=== PATIENT | female | born 1980 | race Hispanic/Latino ===

== ENCOUNTER 2018-05-11 05:49 | Emergency (ER) | payer SELFPAY ==
[2018-05-11] MEDS ORDERED: ONDANSETRON 4 MG/2 ML VIAL ONE ×2 (06:28→11:07)
[2018-05-11] MEDS ORDERED: NA CHLORIDE 0.9% 1,000 ML ONE ×3 (06:29→08:25)
[2018-05-11 06:36] LABS: Absolute Lymphocytes (CBC) 0.8 K/uL (0.7-4.9); Absolute Monocytes 0.5 K/uL (0.1-1.3); Absolute Neutrophil 7.4 K/uL (1.8-8.0); Basophils % 0.4 % (0-1.3); Eosinophils % 1.5 % (0-4.4); Hematocrit 36.8 % (36.0-45.0); Lymphocytes % 8.7 % (15.3-44.8); MCH 30.5 pg (27.0-35.0); MCV 88.9 fL (80-100); MPV 10.5 fL (7.6-11.3); Monocytes % 5.3 % (3.3-12.3); RBC Red Blood Cell Count 4.14 M/uL (3.86-4.86)
[2018-05-11 07:36] LABS: Urine Bacteria >50 /HPF (<20); Urine Culture Reflex Order REFLEXED
[2018-05-11 07:37] LABS: Urine Blood 2+ (NEG); Urine Glucose 2+ (NEG); Urine Protein 2+ (NEG); Urine pH 5.5 (5.0-7.0)
[2018-05-11 07:38] LABS: ALT/SGPT 14 U/L (12-78); AST/SGOT 6 U/L (15-37); Albumin 3.5 g/dL (3.4-5.0); Alkaline Phosphatase 117 U/L (45-117); Amylase Level 18 U/L (25-115); BUN Blood Urea Nitrogen 30 mg/dL (7-18); Bicarbonate 24 mmol/L (21-32); Bilirubin Direct < 0.1 mg/dL (0-0.2); Bilirubin Total 0.3 mg/dL (0.2-1.0); Lipase 126 U/L (73-393); Potassium 4.3 mmol/L (3.5-5.1); Protein, Total 7.7 g/dL (6.4-8.2); Sodium Level 134 mmol/L (136-145)
[2018-05-11 07:40] LABS: Glucose Level 441 mg/dL (74-106)
[2018-05-11] MEDS ORDERED: CEFTRIAXONE/SWI 1gm 1 GM/10 ML SYR ONE (08:20)
[2018-05-11 09:48] LABS: Blood Gas Oxyhemoglobin 92.6 % (94-97); Blood O2 Saturation 94.8 % (92-98.5)
[2018-05-11 10:06] LABS: BUN Blood Urea Nitrogen 22 mg/dL (7-18); Bicarbonate 24 mmol/L (21-32); Glucose Level 235 mg/dL (74-106); Potassium 4.2 mmol/L (3.5-5.1); Sodium Level 140 mmol/L (136-145)
--- NOTE | 2018-05-11 10:51 | EDPHYS ---
Physician Documentation [facility] Name: Mercedes Marin Age: 38 yrs Sex: Female : 1980 Arrival Date: 05/11/2018 Time: 05:50 Bed 17 Private MD: ED Physician Adria Corona HPI: 05/11 06:38 This 38 yrs old Female presents to ER via Wheelchair with complaints of jmm Nausea, Diarrhea, High Blood Sugar. 06:38 The patient presents to the emergency department with nausea, diarrhea. Onset: The jmm symptoms/episode began/occurred acutely, this morning. Possible causes: unknown. Associated signs and symptoms: Pertinent negatives: abdominal pain, vomiting. This is a 38 year old female with a history of DM that presents to the ED with multiple episodes of diarrhea. Patient denies vomiting or abdominal pain. Patient states she has been admitted in the past due to elevated blood glucose. . 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 - Social history:: Smoking status: Patient/guardian denies using tobacco. - Ebola Screening: : No symptoms or risks identified at this time. ROS: 06:38 Constitutional: Negative for fever, chills, and weight loss, Cardiovascular: Negative jmm for chest pain, palpitations, and edema, Respiratory: Negative for shortness of breath, cough, wheezing, and pleuritic chest pain. 06:38 Skin: Negative for injury, rash, and discoloration, Neuro: Negative for headache, weakness, numbness, tingling, and seizure. 06:38 Abdomen/GI: Positive for diarrhea. 06:38 All other systems are negative. Exam: 06:38 Head/Face: atraumatic. Eyes: EOMI, no conjunctival erythema appreciated Chest/axilla: jmm Normal chest wall appearance and motion. Cardiovascular: Regular rate and rhythm. No edema appreciated Respiratory: Normal respirations, no respiratory distress appreciated 06:38 Constitutional: The patient appears in no acute distress, alert, awake. 06:38 Cardiovascular: Rate: normal, Rhythm: regular. 06:38 Abdomen/GI: Inspection: abdomen appears normal, Bowel sounds: normal, Palpation: abdomen is soft and non-tender, in all quadrants. 06:38 Skin: Appearance: Color: normal in color. 06:38 Neuro: Orientation: is normal, Mentation: is normal, Memory: is normal. 06:38 Psych: Behavior/mood is pleasant, cooperative. Vital Signs: 06:04 BP 136 / 96; Pulse 101; Resp 20 S; Temp 98.2(O); Pulse Ox 100% on R/A; Weight 58.97 kg bb (R); Height 5 ft. 2 in. (157.48 cm) (R); Pain 6/10; 06:30 BP 140 / 85; Pulse 93; Resp 16 S; Pulse Ox 99% on R/A; bs1 07:34 BP 150 / 92; Pulse 100; Resp 16; Temp 98.1(O); Pulse Ox 99% on R/A; Pain 0/10; em 08:45 BP 143 / 92; Pulse 109; Resp 18; Pulse Ox 98% on R/A; Pain 0/10; em 09:24 BP 154 / 94; Pulse 109; Resp 16; Temp 98.8(O); Pulse Ox 97% on R/A; Pain 0/10; em 10:34 BP 146 / 92; Pulse 97; Resp 18; Pulse Ox 98% on R/A; Pain 0/10; em 11:14 BP 181 / 92; Pulse 96; Resp 20; Pulse Ox 97% on R/A; em 12:00 BP 168 / 98; Pulse 99; Resp 18; Temp 98.6(O); Pulse Ox 100% on R/A; Pain 5/10; em 06:04 Body Mass Index 23.78 (58.97 kg, 157.48 cm) bb MDM: 06:13 Patient medically screened. barbara 10:50 Data reviewed: vital signs, nurses notes, lab test result(s). Counseling: I had a jmm detailed discussion with the patient and/or guardian regarding: the historical points, exam findings, and any diagnostic results supporting the discharge/admit diagnosis, lab results, the need for outpatient follow up, to return to the emergency department if symptoms worsen or persist or if there are any questions or concerns that arise at home. 11:10 ED course: The patient's abdomen is soft and is non tender to palpation. I do not jmm currently suspect an acute intraabdominal process. The patient's labs do not appear consistent with DKA but did reveal signs of dehydration. After administration of 3 liters of IV fluids the patient's labs along with vital signs improved. Patient stated she felt better. Due to history of a similar episode with repeat er visit the patient was offered admission for observation and IV fluids. I discussed this with Dr. Blankenship whom agreed to visit the patient in the ED. It was advised by Dr. Blankenship to discharge with Levquin for UTI. . 05/11 06:13 Order name: Amylase, Serum; Complete Time: 07:50 [facility] 05/11 06:13 Order name: Basic Metabolic Panel; Complete Time: 07:50 [facility] 05/11 06:13 Order name: CBC with Diff; Complete Time: 07:03 [facility] 05/11 06:13 Order name: Creatinine for Radiology; Complete Time: 07:03 [facility] 05/11 06:13 Order name: Hepatic Function; Complete Time: 07:50 [facility] 05/11 06:13 Order name: Lipase; Complete Time: 07:50 [facility] 05/11 06:13 Order name: Urine Microscopic Only; Complete Time: 07:50 [facility] 05/11 06:14 Order name: Ketone, Serum; Complete Time: 07:50 [facility] 05/11 06:32 Order name: Urine Dipstick--Ancillary (enter results) eb 05/11 06:32 Order name: Urine --Ancillary (enter results); Complete Time: 07:50 05/11 06:32 Order name: Urine Dipstick-Ancillary; Complete Time: 07:50 [facility] 05/11 07:37 Order name: Urine Culture [facility] 05/11 08:15 Order name: BMP; Complete Time: 10:21 [facility] 05/11 09:02 Order name: Ketone, Serum; Complete Time: 10:12 [facility] 05/11 06:13 Order name: Urine Test (obtain specimen); Complete Time: 06:32 [facility] 05/11 06:13 Order name: IV Saline Lock; Complete Time: 06:32 [facility] 05/11 06:13 Order name: Labs collected and sent; Complete Time: 06:32 [facility] 05/11 06:13 Order name: Urine Dipstick-Ancillary (obtain specimen); Complete Time: 06:32 [facility] 05/11 09:02 Order name: ABG; Complete Time: 09:52 [facility] Administered Medications: 06:32 Drug: NS 0.9% 1000 ml Route: IV; Rate: 1 bolus; Site: left forearm; bs1 07:18 Follow up: IV Status: Completed infusion; IV Intake: 1000ml em 06:32 Drug: Zofran 4 mg Route: IVP; Site: left forearm; bs1 07:18 Follow up: Response: No adverse reaction em 07:33 Drug: NS 0.9% 1000 ml Route: IV; Rate: 1 bolus; Site: left antecubital; em 08:02 Follow up: IV Status: Completed infusion; IV Intake: 1000ml em 08:15 Drug: Rocephin - (cefTRIAXone) 1 grams Route: IVPB; Infused Over: 30 mins; Site: left rb1 forearm; 08:45 Follow up: Response: No adverse reaction; IV Status: Completed infusion; IV Intake: 10mlem 08:28 Drug: NS 0.9% 1000 ml Route: IV; Rate: 1 bolus; Site: left forearm; em 11:12 Follow up: IV Status: Completed infusion; IV Intake: 1000ml em 11:10 Drug: Zofran 4 mg Route: IVP; Site: left forearm; ss 12:07 Follow up: Response: No adverse reaction; Nausea is decreased em Point of Care Testing: Blood Glucose: 06:12 Blood Glucose: 412 mg/dL; bs1 Ranges: Critical Glucose Levels:Adult <50 mg/dl or >400 mg/dl <40 mg/dl or >180 mg/dl Disposition: 05/11/18 12:04 Discharged to Home. Impression: Diarrhea, unspecified, Dehydration, Hyperglycemia, unspecified, Urinary tract infection, site not specified. - Condition is Stable. - Discharge Instructions: Food Choices to Help Relieve Diarrhea, Adult, Dehydration, Adult, Diarrhea, Hyperglycemia, Urinary Tract Infection. - Prescriptions for Zofran ODT 4 mg Oral tablet,disintegrating - place 2 tablet by TRANSLINGUAL route every 4-6 hours; 30 tablet. Levaquin 500 mg Oral Tablet - take 1 tablet by ORAL route once daily for 7 days; 7 tablet. - Medication Reconciliation Form, Thank You Letter, Antibiotic Education, Prescription Opioid Use form. - Follow up: Private Physician; When: 1 - 2 days; Reason: Continuance of care. Addendum: 05/15/2018 07:46 Co-signature as Attending Physician, Adria Corona MD. r n Signatures: Dispatcher [employer] EDMS Jong Camarena PA PA m Umesh, Redd, CHART WRITER CHART WRITER em Elvira Batista, RN RN Adria Hagen MD MD rn Smirch, Shelby RN RN ss Sharon Rose, RN RN [facility] Mireya Castaneda RN RN bs1 Corrections: (The following items were deleted from the chart) 05/11 11:15 10:51 05/11/2018 10:51 Discharged to Home. Impression: Urinary tract infection, site [facility] not specified; Diarrhea, unspecified; Dehydration. Condition is Stable. Forms are Medication Reconciliation Form, Thank You Letter, Antibiotic Education, Prescription Opioid Use. Follow up: Private Physician; When: 1 - 2 days; Reason: Continuance of care. [facility] 12:16 12:04 05/11/2018 12:04 Discharged to Home. Impression: Diarrhea, unspecified; em Dehydration; Hyperglycemia, unspecified; Urinary tract infection, site not specified. Condition is Stable. Discharge Instructions: Diarrhea. Prescriptions for Keflex 500 mg Oral Capsule - take 1 capsule by ORAL route every 12 hours for 10 days; 20 capsule, Zofran 4 mg Oral Tablet - take 1 tablet by ORAL route every 12 hours As needed; 20 tablet. and Forms are Medication Reconciliation Form, Thank You Letter, Antibiotic Education, Prescription Opioid Use. Follow up: Private Physician; When: 1 - 2 days; Reason: Continuance of care. [facility]
--- NOTE | 2018-05-11 10:51 | ER ---
Nurse's Notes [facility] Name: Mercedes Marin Age: 38 yrs Sex: Female : 1980 Arrival Date: 05/11/2018 Time: 05:50 Bed 17 Private MD: Diagnosis: Diarrhea, unspecified;Dehydration;Hyperglycemia, unspecified;Urinary tract infection, site not specified Presentation: 05/11 06:03 Presenting complaint: Patient states: she has had diarrhea and nausea since 0100 this bb morning BGL at 0430 was 480, pt also has a headache. Transition of care: patient was not received from another setting of care. Onset of symptoms was May 11, 2018 at 01:00. Risk Assessment: Do you want to hurt yourself or someone else? Patient reports no desire to harm self or others. Initial Sepsis Screen: Does the patient meet any 2 criteria? No. Patient's initial sepsis screen is negative. Does the patient have a suspected source of infection? No. Patient's initial sepsis screen is negative. Care prior to arrival: None. 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 - Social history:: Smoking status: Patient/guardian denies using tobacco. - Ebola Screening: : No symptoms or risks identified at this time. Screenin:35 Abuse screen: Denies threats or abuse. Denies injuries from another. Nutritional bs1 screening: No deficits noted. Tuberculosis screening: No symptoms or risk factors identified. Fall Risk None identified. Assessment: 06:15 General: Appears uncomfortable, ill, slender, Behavior is calm, cooperative, bs1 appropriate for age. Pain: Complains of pain in head. Neuro: Level of Consciousness is awake, alert, obeys commands, Oriented to person, place, time, situation, Appropriate for age Reports dizziness, headache weakness. Cardiovascular: Denies chest pain, shortness of breath, Heart tones S1 S2 present Capillary refill < 3 seconds Patient's skin is warm and dry. Respiratory: Airway is patent Trachea midline Respiratory effort is even, unlabored, Respiratory pattern is regular, symmetrical, Breath sounds are clear bilaterally. GI: Abdomen is round non-distended, Bowel sounds present X 4 quads. Reports diarrhea, nausea. : No signs and/or symptoms were reported regarding the genitourinary system. EENT: No signs and/or symptoms were reported regarding the EENT system. Derm: Skin is intact. Musculoskeletal: Circulation, motion, and sensation intact. Capillary refill < 3 seconds, Range of motion: intact in all extremities. 07:00 Reassessment: Report given to LVN. Redd bs1 07:17 Reassessment: Patient appears in no apparent distress at this time. General: Appears in em no apparent distress. comfortable, well groomed, well developed, Behavior is calm, cooperative. Pain: Denies pain. Neuro: Level of Consciousness is awake, alert, obeys commands, Oriented to person, place, time, situation, Denies weakness headache. Cardiovascular: Capillary refill < 3 seconds Patient's skin is warm and dry. Respiratory: Airway is patent Respiratory effort is even, unlabored, Respiratory pattern is regular, symmetrical. GI: Abdomen is round Bowel sounds present X 4 quads. Derm: Skin is intact, Skin is pink, warm \T\ dry. Musculoskeletal: Capillary refill < 3 seconds, Range of motion: intact in all extremities. 07:35 Reassessment: administered 2nd liter of NS, no complaints at this time. em 08:30 Reassessment: Patient appears in no apparent distress at this time. Patient and/or em family updated on plan of care and expected duration. Pain level reassessed. Patient is alert, oriented x 3, equal unlabored respirations, skin warm/dry/pink. administered 3 rd liter NS, will recheck BMP after, currently feels better Patient denies pain at this time. 09:22 Reassessment: Patient appears in no apparent distress at this time. Patient and/or em family updated on plan of care and expected duration. Pain level reassessed. Patient is alert, oriented x 3, equal unlabored respirations, skin warm/dry/pink. currently denies N/V/D Patient states symptoms have improved. 10:33 Reassessment: Patient appears in no apparent distress at this time. Patient and/or em family updated on plan of care and expected duration. Pain level reassessed. Patient is alert, oriented x 3, equal unlabored respirations, skin warm/dry/pink. Patient denies pain at this time. Patient states feeling better. Patient states symptoms have improved. 11:09 Reassessment: pt daughter states she is getting nauseated, pt dry heavichad, Jong, PA em notified, new medication orders received. 12:14 Reassessment: Patient appears in no apparent distress at this time. Patient and/or em family updated on plan of care and expected duration. Pain level reassessed. Patient is alert, oriented x 3, equal unlabored respirations, skin warm/dry/pink. nausea has resolved, mild head ache. Vital Signs: 06:04 BP 136 / 96; Pulse 101; Resp 20 S; Temp 98.2(O); Pulse Ox 100% on R/A; Weight 58.97 kg bb (R); Height 5 ft. 2 in. (157.48 cm) (R); Pain 6/10; 06:30 BP 140 / 85; Pulse 93; Resp 16 S; Pulse Ox 99% on R/A; bs1 07:34 BP 150 / 92; Pulse 100; Resp 16; Temp 98.1(O); Pulse Ox 99% on R/A; Pain 0/10; em 08:45 BP 143 / 92; Pulse 109; Resp 18; Pulse Ox 98% on R/A; Pain 0/10; em 09:24 BP 154 / 94; Pulse 109; Resp 16; Temp 98.8(O); Pulse Ox 97% on R/A; Pain 0/10; em 10:34 BP 146 / 92; Pulse 97; Resp 18; Pulse Ox 98% on R/A; Pain 0/10; em 11:14 BP 181 / 92; Pulse 96; Resp 20; Pulse Ox 97% on R/A; em 12:00 BP 168 / 98; Pulse 99; Resp 18; Temp 98.6(O); Pulse Ox 100% on R/A; Pain 5/10; em 06:04 Body Mass Index 23.78 (58.97 kg, 157.48 cm) ED Course: 05:50 Patient arrived in ED. es 06:00 Mireya Castaneda, WALDEMAR is Primary Nurse. bs1 06:00 Inserted saline lock: 22 gauge in left forearm, using aseptic technique. Blood bs1 collected. 06:04 Triage completed. bb 06:04 Arm band placed on Patient placed in an exam room, on a stretcher, on pulse oximetry. bb Family accompanied patient. 06:12 Jong Camarena PA is PHCP. [facility] 06:12 Adria Corona MD is Attending Physician. [facility] 06:35 Patient has correct armband on for positive identification. Placed in gown. Bed in low bs1 position. Call light in reach. Side rails up X 1. Pulse ox on. NIBP on. 10:44 No provider procedures requiring assistance completed. em 12:13 IV discontinued, intact, bleeding controlled, No redness/swelling at site. Pressure em dressing applied. Administered Medications: 06:32 Drug: NS 0.9% 1000 ml Route: IV; Rate: 1 bolus; Site: left forearm; bs1 07:18 Follow up: IV Status: Completed infusion; IV Intake: 1000ml em 06:32 Drug: Zofran 4 mg Route: IVP; Site: left forearm; bs1 07:18 Follow up: Response: No adverse reaction em 07:33 Drug: NS 0.9% 1000 ml Route: IV; Rate: 1 bolus; Site: left antecubital; em 08:02 Follow up: IV Status: Completed infusion; IV Intake: 1000ml em 08:15 Drug: Rocephin - (cefTRIAXone) 1 grams Route: IVPB; Infused Over: 30 mins; Site: left rb1 forearm; 08:45 Follow up: Response: No adverse reaction; IV Status: Completed infusion; IV Intake: 10mlem 08:28 Drug: NS 0.9% 1000 ml Route: IV; Rate: 1 bolus; Site: left forearm; em 11:12 Follow up: IV Status: Completed infusion; IV Intake: 1000ml em 11:10 Drug: Zofran 4 mg Route: IVP; Site: left forearm; ss 12:07 Follow up: Response: No adverse reaction; Nausea is decreased em Point of Care Testing: Blood Glucose: 06:12 Blood Glucose: 412 mg/dL; bs1 Ranges: Intake: 07:18 IV: 1000ml; Total: 1000ml. em 08:02 IV: 1000ml; Total: 2000ml. em 08:45 IV: 10ml; Total: 2010ml. em 11:12 IV: 1000ml; Total: 3010ml. em Outcome: 10:51 Discharge ordered by . [facility] 12:04 Discharge ordered by . [facility] 12:13 Discharged to home ambulatory. em 12:13 Condition: good 12:13 Discharge instructions given to patient, Instructed on discharge instructions, follow up and referral plans. medication usage, Demonstrated understanding of instructions, follow-up care, medications, Prescriptions given X 2. 12:16 Patient left the ED. em Addendum: 05/13/2018 09:30 Addendum: Culture Results: Positive urine culture. Bacteria is resistant to, has i w intermediate sensitivity, or is not tested against prescribed antibiotics. Report given to LYNSEY for further evaluation and then to veterinary surgery technologist for follow up with patient. Phone call Attempt #1 pt did not answer, left voice mail. Signatures: Jong Camarena PA PA Whitney Escalante Edgar, SERVICE ORDER CLERK SERVICE ORDER CLERK em Elvira Batista, RN RN Sonia Morgan, RN WALDEMAR iw Marbella Allen RN RN ss Sharon Rose, RN RN rb1 Mireya Castaneda RN RN bs1
[2018-05-11] MEDS ORDERED: ACETAMINOPHEN 325 MG TABLET ONE (11:37)
[2018-05-11 12:30] VITALS: BP 168/98; TEMP 98.6; O2SAT 100
== END 2018-05-11 12:16 | disposition home or self-care (01) ==
LOC: ER 05:49
DX: E86.0 Dehydration (principal); E11.65 Type 2 diabetes mellitus with hyperglycemia; N39.0 Urinary tract infection, site not specified; Z79.4 Long term (current) use of insulin
CPT/HCPCS: 36415; 80048; 80076; 81003; 81015; 81025; 82010; 82150; 82805; 82962; 83690; 85025; 87077; 87086; 87088; 87186; 96361; 96365; 96375; 99284; J0696; J2405; J7030

== ENCOUNTER 2019-06-08 10:46 | Inpatient (IN) | payer SELFPAY ==
[2019-06-08] MEDS ORDERED: MORPHINE 4 MG/ML SYR ONE (11:40)
[2019-06-08] MEDS ORDERED: NA CHLORIDE 0.9% 1,000 ML ONE (11:40)
[2019-06-08] MEDS ORDERED: ONDANSETRON 4 MG/2 ML VIAL ONE ×2 (11:40→14:48)
--- NOTE | 2019-06-08 12:11 | RAD REPORT ---
EXAM DESCRIPTION: RAD - Chest Single View - 06/08/2019 11:56 am CLINICAL HISTORY: COUGH Chest pain. COMPARISON: Chest Single View dated 05/12/2016; Chest Single View dated 05/11/2016 FINDINGS: Portable technique limits examination quality. Interstitial lung markings are mildly prominent suggesting interstitial pneumonia. The heart is oliverio l in size. No displaced fractures. IMPRESSION: Mild interstitial pneumonitis.
[2019-06-08 12:52] LABS: Absolute Lymphocytes (CBC) 1.1 K/uL (0.7-4.9); Basophils % 0.8 % (0-1.3); Hematocrit 29.6 % (36.0-45.0); Lymphocytes % 13.3 % (15.3-44.8); MPV 9.4 fL (7.6-11.3); RBC Red Blood Cell Count 3.44 M/uL (3.86-4.86)
[2019-06-08 13:00] LABS: Protime INR 0.98
[2019-06-08 13:04] LABS: Urine Blood 1+ (NEG); Urine Glucose TRACE (NEG); Urine Protein 3+ (NEG)
[2019-06-08 13:12] LABS: ALT/SGPT 18 U/L (12-78); AST/SGOT 14 U/L (15-37); Albumin 3.3 g/dL (3.4-5.0); Alkaline Phosphatase 81 U/L (45-117); BUN Blood Urea Nitrogen 32 mg/dL (7-18); Bicarbonate 25 mmol/L (21-32); Bilirubin Direct < 0.1 mg/dL (0-0.2); Bilirubin Total 0.3 mg/dL (0.2-1.0); Glucose Level 151 mg/dL (74-106); Lipase 48 U/L (73-393); Magnesium 2.4 mg/dL (1.8-2.4); NT PRO-BNP 1697 pg/mL (<125); Potassium 4.6 mmol/L (3.5-5.1); Sodium Level 138 mmol/L (136-145); Troponin (Emerg Dept Use Only) < 0.02 ng/mL (0.0-0.045)
--- NOTE | 2019-06-08 14:01 | RAD REPORT ---
EXAM DESCRIPTION: CT - Head Brain Wo Cont - 06/08/2019 1:49 pm CLINICAL HISTORY: HEADACHE Headache, drowsiness COMPARISON: No comparisons TECHNIQUE: All CT scans are performed using dose optimization technique as appropriate and may inclu de automated exposure control or mA/KV adjustment according to patient size. FINDINGS: No intracranial hemorrhage, hydrocephalus or extra-axial fluid collection.No areas of brai n edema or evidence of midline shift. The paranasal sinuses and mastoids are clear. The calvarium is intact. IMPRESSION: No acute intracranial abnormality.
--- NOTE | 2019-06-08 14:26 | EKG ---
Test Date: 2019-06-08 Test Time: 11:23:41 Sock Folder: SAAD MEASUREMENT RESULTS: Intervals: Rate: 101 HI: 156 QRSD: 66 QT: 356 QTc: 461 [place]: P: 80 HI: 156 QRS: 27 T: 85 INTERPRETIVE STATEMENTS: Sinus tachycardia Otherwise normal ECG Compared to ECG 05/12/2016 11:25:48 Sinus rhythm no longer present Electronically Signed On 06-08-19 14:25:24 CDT by Gerson Aguilar
--- NOTE | 2019-06-08 14:31 | RAD REPORT ---
EXAM DESCRIPTION: MRI - MRA Head Wo Cont - 06/08/2019 2:16 pm CLINICAL HISTORY: HEADACHE CVA COMPARISON: Head Brain Wo Cont dated 06/08/2019 FINDINGS: 3D noncontrast [id number] MR angiography of the [place] was performed. No aneurysm, flow-limiting stenosis or vascular malformation is seen. origin of the right poste rior communicating artery noted, normal variant. Forward flow seen in mildly left-sided dominant vert ebral arteries. The visualized dural venous sinuses appear patent. IMPRESSION: No significant flow abnormality of the [place] is identified.
--- NOTE | 2019-06-08 14:49 | ER ---
Nurse's Notes [facility] Name: Mercedes Marin Age: 39 yrs Sex: Female : 1980 Arrival Date: 06/08/2019 Time: 10:47 Bed 17 Private MD: Diagnosis: Vomiting;Unspecified combined systolic (congestive) and diastolic (congestive) heart failure;Essential (primary) hypertension;Headache;Type 2 diabetes mellitus Presentation: 06/08 10:50 Presenting complaint: Patient states: i started having headache last night and this hj morning i started vomiting, denies trauma to the area, reports BP issues;. Transition of care: patient was not received from another setting of care. Onset of symptoms was June 08, 2019. Risk Assessment: Do you want to hurt yourself or someone else? Patient reports no desire to harm self or others. Initial Sepsis Screen: Does the patient meet any 2 criteria? No. Patient's initial sepsis screen is negative. Does the patient have a suspected source of infection? No. Patient's initial sepsis screen is negative. Care prior to arrival: None. 10:50 Method Of Arrival: Ambulatory 10:50 Acuity: ALONDRA 2 hj Triage Assessment: 10:55 General: Appears in no apparent distress. uncomfortable, Behavior is calm, cooperative, bp appropriate for age. Pain: Complains of pain in head. EENT: No deficits noted. Neuro: Level of Consciousness is awake, alert, obeys commands, Oriented to person, place, time, situation, Appropriate for age. Cardiovascular: Rhythm is sinus rhythm. Respiratory: No deficits noted. GI: Reports nausea, vomiting. : No signs and/or symptoms were reported regarding the genitourinary system. Derm: No deficits noted. Musculoskeletal: No deficits noted. 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 - Family history:: not pertinent. - Social history:: Smoking status: Patient/guardian denies using tobacco. - Ebola Screening: : No symptoms or risks identified at this time. Screenin:49 Abuse screen: Denies threats or abuse. Denies injuries from another. Nutritional bp screening: No deficits noted. Tuberculosis screening: No symptoms or risk factors identified. Fall Risk None identified. Assessment: 10:55 General: SEE TRIAGE NOTE. GI: Abdomen is non-distended, Bowel sounds present X 4 quads. bp Abd is soft X 4 quads. 12:50 Reassessment: PIV AND LAB SPECIMENS OBTAINED. LABS IN PROCESS. bp 13:46 Reassessment: PT TO CT. bp 14:26 Reassessment: PT RETURNED FROM MRI. bp 16:00 Reassessment: PT REMAINS HYPERTENSIVE, ADMIT IN PROCESS. bp 17:21 Reassessment: ADMIT IN PROCESS. bp 17:40 Reassessment: BED ASSIGNED. NURSE UNAVAILABLE FOR REPORT. bp 18:45 Reassessment: ADMIT ON HOLD FOR RECEIVING NURSE. bp 19:05 General: Appears in no apparent distress. comfortable, Behavior is calm, cooperative, rr5 appropriate for age. 19:05 Pain: Complains of pain in head Pain does not radiate. Pain currently is 4 out of 10 on rr5 a pain scale. Quality of pain is described as aching, Pain began gradually, Is intermittent. Neuro: Level of Consciousness is awake, alert, obeys commands, Oriented to person, place, time, situation, Appropriate for age Reports headache. Cardiovascular: Capillary refill < 3 seconds Patient's skin is warm and dry. Respiratory: Airway is patent Respiratory effort is even, unlabored, Respiratory pattern is regular, symmetrical. GI: Abdomen is non-distended, Reports nausea. : No signs and/or symptoms were reported regarding the genitourinary system. EENT: No signs and/or symptoms were reported regarding the EENT system. Derm: Skin is intact, Skin temperature is warm. Musculoskeletal: Circulation, motion, and sensation intact. Capillary refill < 3 seconds. 20:00 Reassessment: Patient appears in no apparent distress at this time. Patient is alert, rr5 oriented x 3, equal unlabored respirations, skin warm/dry/pink. transferred to room 213 via stretcher Patient states symptoms have improved. Vital Signs: 10:53 BP 212 / 101; Pulse 104; Resp 18; Temp 98.9(TE); Pulse Ox 100% on R/A; Weight 68.04 kg; hj Height 5 ft. 2 in. (157.48 cm); Pain 8/10; 12:50 BP 190 / 93; Pulse 91; Resp 16; Pulse Ox 98% ; bp 13:46 BP 180 / 95; Pulse 85; Resp 16; Pulse Ox 95% ; bp 14:27 BP 199 / 91; Pulse 95; Resp 16; Pulse Ox 97% ; bp 14:54 BP 179 / 97; Pulse 90; Resp 16; Pulse Ox 95% ; bp 17:22 BP 184 / 96; Pulse 94; Resp 16; Pulse Ox 100% ; bp 18:45 BP 199 / 106; Pulse 100; Resp 16; Pulse Ox 98% ; bp 19:15 BP 197 / 109; Pulse 99; Resp 19; Temp 98; Pulse Ox 100% on R/A; rr5 19:50 BP 159 / 91; Pulse 100; Resp 16; Pulse Ox 100% on R/A; rr5 10:53 Body Mass Index 27.44 (68.04 kg, 157.48 cm) hj 19:15 apresoline IV 10 mg given signed in [employer] as prn dose rr5 ED Course: 10:47 Patient arrived in ED. rg4 10:49 Lorenzo Condon MD is Attending Physician. nicholas 10:51 Triage completed. hj 10:52 Arm band placed on right wrist. hj 10:54 Wes Marcelino, RN is Primary Nurse. bp 11:23 EKG done, by system technologist. reviewed by Lorenzo Condon MD. at1 11:57 XRAY Chest (1 view) In Process Unspecified. EDMS 12:49 Patient has correct armband on for positive identification. Placed in gown. Bed in low bp position. Call light in reach. Side rails up X2. Adult w/ patient. 12:50 Inserted saline lock: 24 gauge in left hand, using aseptic technique. Blood collected. bp 13:08 Radiology exam delayed due to lab results not completed at this time. (BUN/Creatinine). jg6 13:50 CT Head Brain wo Cont In Process Unspecified. EDMS 14:08 MRA Head Wo Cont In Process Unspecified. EDMS 14:45 Cathi Gallagher MD is Hospitalizing Provider. nicholas 18:00 No provider procedures requiring assistance completed. Patient admitted, IV remains in bp place. Administered Medications: 12:52 Drug: morphine 4 mg Route: IVP; Site: left hand; bp 14:53 Follow up: Response: Pain is decreased bp 12:52 Drug: Zofran 4 mg Route: IVP; Site: left hand; bp 14:53 Follow up: Response: No adverse reaction bp 12:52 Drug: NS 0.9% 1000 ml Route: IV; Rate: 125 ml/hr; Site: left hand; bp 20:00 Follow up: Response: No adverse reaction; IV Status: Infusion continued upon admission; rr5 IV Intake: 850ml 14:53 Drug: Zofran 4 mg Route: IVP; Site: left hand; bp Intake: 20:00 IV: 850ml; Total: 850ml. rr5 Outcome: 14:46 Decision to Hospitalize by Provider. nicholas 20:00 Admitted to Med/surg accompanied by tech, via stretcher, room 213. rr5 20:00 Condition: stable 20:00 Instructed on the need for admit. 20:08 Patient left the ED. rr5 Signatures: Dispatcher [employer] EDME Lorenzo Condon MD MD cha Gonzales, Amanda, overlock sewing machine operator EKG Tat1 Fabricio Escobar RN RN hj Garcia, Rubi rg4 Wes Marcelino RN RN bp Garcia, Jessica jg6 Bandar Ellis, RN RN rr5 Corrections: (The following items were deleted from the chart) 10:53 10:50 Acuity: ALONDRA 3 chester briggs
--- NOTE | 2019-06-08 14:50 | EDPHYS ---
Physician Documentation [facility] Name: Mercedes Marin Age: 39 yrs Sex: Female : 1980 Arrival Date: 06/08/2019 Time: 10:47 Bed 17 Private MD: ED Physician Lorenzo Condon HPI: 06/08 11:17 This 39 yrs old Female presents to ER via Ambulatory with complaints of nicholas Vomiting, Headache. 11:17 The patient presents to the emergency department with nausea, vomiting. Onset: The nicholas symptoms/episode began/occurred this morning, today, yesterday. Possible causes: unknown. The symptoms are aggravated by movement, pressure, The symptoms are alleviated by remaining still. Associated signs and symptoms: The patient has no apparent associated signs or symptoms. Severity of symptoms: At their worst the symptoms were moderate in the emergency department the symptoms are unchanged. The patient has not experienced similar symptoms in the past. 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 - Family history:: not pertinent. - Social history:: Smoking status: Patient/guardian denies using tobacco. - Ebola Screening: : No symptoms or risks identified at this time. ROS: 11:17 Constitutional: Negative for fever, chills, and weight loss, Eyes: Negative for injury, nicholas pain, redness, and discharge, ENT: Negative for injury, pain, and discharge, Neck: Negative for injury, pain, and swelling, Cardiovascular: Negative for chest pain, palpitations, and edema, Respiratory: Negative for shortness of breath, cough, wheezing, and pleuritic chest pain, Back: Negative for injury and pain, : Negative for injury, bleeding, discharge, and swelling, MS/Extremity: Negative for injury and deformity, Skin: Negative for injury, rash, and discoloration, Psych: Negative for depression, anxiety, suicide ideation, homicidal ideation, and hallucinations, Allergy/Immunology: Negative for hives, rash, and allergies, Endocrine: Negative for neck swelling, polydipsia, polyuria, polyphagia, and marked weight changes, Hematologic/Lymphatic: Negative for swollen nodes, abnormal bleeding, and unusual bruising. 11:17 Abdomen/GI: Positive for abdominal pain, nausea and vomiting. 11:17 Neuro: Positive for headache. Exam: 11:17 Constitutional: This is a well developed, well nourished patient who is awake, alert, nicholas and in no acute distress. Head/Face: Normocephalic, atraumatic. Eyes: Pupils equal round and reactive to light, extra-ocular motions intact. Lids and lashes normal. Conjunctiva and sclera are non-icteric and not injected. Cornea within normal limits. Periorbital areas with no swelling, redness, or edema. ENT: Nares patent. No nasal discharge, no septal abnormalities noted. Tympanic membranes are normal and external auditory canals are clear. Oropharynx with no redness, swelling, or masses, exudates, or evidence of obstruction, uvula midline. Mucous membranes moist. Neck: Trachea midline, no thyromegaly or masses palpated, and no cervical lymphadenopathy. Supple, full range of motion without nuchal rigidity, or vertebral point tenderness. No Meningismus. Chest/axilla: Normal chest wall appearance and motion. Nontender with no deformity. No lesions are appreciated. Cardiovascular: Regular rate and rhythm with a normal S1 and S2. No gallops, murmurs, or rubs. Normal PMI, no JVD. No pulse deficits. Respiratory: Lungs have equal breath sounds bilaterally, clear to auscultation and percussion. No rales, rhonchi or wheezes noted. No increased work of breathing, no retractions or nasal flaring. Abdomen/GI: Soft, non-tender, with normal bowel sounds. No distension or tympany. No guarding or rebound. No evidence of tenderness throughout. Back: No spinal tenderness. No costovertebral tenderness. Full range of motion. Skin: Warm, dry with normal turgor. Normal color with no rashes, no lesions, and no evidence of cellulitis. MS/ Extremity: Pulses equal, no cyanosis. Neurovascular intact. Full, normal range of motion. Neuro: Awake and alert, GCS 15, oriented to person, place, time, and situation. Cranial nerves II-XII grossly intact. Motor strength 5/5 in all extremities. Sensory grossly intact. Cerebellar exam normal. Normal gait. Psych: Awake, alert, with orientation to person, place and time. Behavior, mood, and affect are within normal limits. 11:17 Neck: ROM/movement: no acute changes, Meningeal signs: are not present, Kernig's sign is negative, Brudzinski's sign is negative. Vital Signs: 10:53 BP 212 / 101; Pulse 104; Resp 18; Temp 98.9(TE); Pulse Ox 100% on R/A; Weight 68.04 kg; hj Height 5 ft. 2 in. (157.48 cm); Pain 8/10; 12:50 BP 190 / 93; Pulse 91; Resp 16; Pulse Ox 98% ; bp 13:46 BP 180 / 95; Pulse 85; Resp 16; Pulse Ox 95% ; bp 14:27 BP 199 / 91; Pulse 95; Resp 16; Pulse Ox 97% ; bp 14:54 BP 179 / 97; Pulse 90; Resp 16; Pulse Ox 95% ; bp 17:22 BP 184 / 96; Pulse 94; Resp 16; Pulse Ox 100% ; bp 18:45 BP 199 / 106; Pulse 100; Resp 16; Pulse Ox 98% ; bp 19:15 BP 197 / 109; Pulse 99; Resp 19; Temp 98; Pulse Ox 100% on R/A; rr5 19:50 BP 159 / 91; Pulse 100; Resp 16; Pulse Ox 100% on R/A; rr5 10:53 Body Mass Index 27.44 (68.04 kg, 157.48 cm) 19:15 apresoline IV 10 mg given signed in [facility] as prn dose rr5 MDM: 10:55 Patient medically screened. [facility] 11:20 Data reviewed: vital signs, nurses notes, lab test result(s), EKG, radiologic studies, [facility] CT scan, plain films. 06/08 11:17 Order name: Basic Metabolic Panel; Complete Time: 13:41 [facility] 06/08 11:17 Order name: CBC with Diff; Complete Time: 13:41 [facility] 06/08 11:17 Order name: LFT's; Complete Time: 13:41 [facility] 06/08 11:17 Order name: Magnesium; Complete Time: 13:41 [facility] 06/08 11:17 Order name: NT PRO-BNP; Complete Time: 13:41 [facility] 06/08 11:17 Order name: PT-INR; Complete Time: 13:41 [facility] 06/08 11:17 Order name: Troponin (emerg Dept Use Only); Complete Time: 13:41 [facility] 06/08 11:17 Order name: XRAY Chest (1 view); Complete Time: 12:40 [facility] 06/08 11:17 Order name: CT Head Brain wo Cont; Complete Time: 14:41 [facility] 06/08 11:17 Order name: Urine Culture [facility] 06/08 11:17 Order name: Lipase; Complete Time: 13:41 [facility] 06/08 11:56 Order name: Urine Dipstick--Ancillary (enter results); Complete Time: 13:41 06/08 11:56 Order name: Urine --Ancillary (enter results); Complete Time: 13:41 06/08 11:17 Order name: EKG; Complete Time: 11:22 [facility] 06/08 11:17 Order name: Cardiac monitoring; Complete Time: 11:34 [facility] 06/08 11:17 Order name: EKG - Nurse/Tech; Complete Time: 11:17 [facility] 06/08 11:17 Order name: IV Saline Lock; Complete Time: 12:50 [facility] 06/08 11:17 Order name: Labs collected and sent; Complete Time: 12:50 [facility] 06/08 11:17 Order name: O2 Per Protocol; Complete Time: 11:17 [facility] 06/08 11:17 Order name: O2 Sat Monitoring; Complete Time: 11:18 [facility] 06/08 11:17 Order name: Urine Dipstick-Ancillary (obtain specimen); Complete Time: 11:51 [facility] 06/08 11:17 Order name: Urine Test (obtain specimen); Complete Time: 11:51 [facility] 06/08 13:42 Order name: MRA Head Wo Cont; Complete Time: 14:41 EDMS Administered Medications: 12:52 Drug: morphine 4 mg Route: IVP; Site: left hand; bp 14:53 Follow up: Response: Pain is decreased bp 12:52 Drug: Zofran 4 mg Route: IVP; Site: left hand; bp 14:53 Follow up: Response: No adverse reaction bp 12:52 Drug: NS 0.9% 1000 ml Route: IV; Rate: 125 ml/hr; Site: left hand; bp 20:00 Follow up: Response: No adverse reaction; IV Status: Infusion continued upon admission; rr5 IV Intake: 850ml 14:53 Drug: Zofran 4 mg Route: IVP; Site: left hand; bp Disposition: 06/08/19 14:46 Hospitalization ordered by Cathi Gallagher for Inpatient Admission. Preliminary diagnosis are Vomiting, Unspecified combined systolic (congestive) and diastolic (congestive) heart failure, Essential (primary) hypertension, Headache, Type 2 diabetes mellitus. - Bed requested for Telemetry/MedSurg (Inpatient). - Status is Inpatient Admission. rr5 - Condition is Fair. - Problem is new. - Symptoms have improved. UTI on Admission? No Signatures: Dispatcher [employer] EDOR Lorenzo Condon MD MD cha Williams, Irene, RN RN iw Fabricio Escobar RN RN hj Wes Marcelino, RN RN bp Bandar Ellis RN RN rr5 Corrections: (The following items were deleted from the chart) 13:49 11:22 Head Angio+CT.RAD.BRZ ordered. [facility] 17:40 14:46 Hospitalization Ordered by Cathi Gallagher MD for Inpatient Admission. Preliminary iw diagnosis is Vomiting; Unspecified combined systolic (congestive) and diastolic (congestive) heart failure; Essential (primary) hypertension; Headache; Type 2 diabetes mellitus. Bed requested for Telemetry/MedSurg (Inpatient). Status is Inpatient Admission. Condition is Fair. Problem is new. Symptoms have improved. UTI on Admission? No. nicholas 20:08 17:40 06/08/2019 14:46 Hospitalization Ordered by Cathi Gallagher MD for Inpatient rr5 Admission. Preliminary diagnosis is Vomiting; Unspecified combined systolic (congestive) and diastolic (congestive) heart failure; Essential (primary) hypertension; Headache; Type 2 diabetes mellitus. Bed requested for Telemetry/MedSurg (Inpatient). Status is Inpatient Admission. Condition is Fair. Problem is new. Symptoms have improved. UTI on Admission? No. iw
[2019-06-08] MEDS ORDERED: NITROGLYCERIN 0.4 MG/TAB SL PRN (19:10)
[2019-06-08] MEDS ORDERED: ACETAMINOPHEN 500 MG TAB PO PRN (19:10)
[2019-06-08] MEDS ORDERED: MORPHINE 4 MG/ML SYR IV PRN (19:10)
[2019-06-08] MEDS: INSULIN -REGULAR HUMAN 50 UNIT/0.5 ML ML SQ SCH ×2 (19:10→21:00)
[2019-06-08] MEDS ORDERED: HYDRALAZINE HCL 20 MG/ML VIAL IV PRN ×2 (19:10→19:15)
[2019-06-08] MEDS ORDERED: HYDRALAZINE HCL 20 MG/ML VIAL ONE (19:15)
[2019-06-08] MEDS ORDERED: METOPROLOL TAR 50 MG TAB PO SCH (21:00)
[2019-06-08] MEDS ORDERED: ONDANSETRON 4 MG/2 ML VIAL IV PRN (22:16)
[2019-06-08 22:52] VITALS: BMI 27.6
--- NOTE | 2019-06-09 03:25 | HP ---
Date of Admission: 06/08/2019 Chief Complaint: Headache. History Of Present Illness: Patient is a 39-year-old female with past medical history of diabetes, h ypertension, apparent kidney disease, who comes in with nausea, vomiting, and headache. Denies any b lurry vision. Patient's symptoms are constant, moderate, progressively worsening over the past night . Patient denies any specific chest pain. Patient came into the ER for further evaluation. She was found to have elevated blood pressure in the 200s/100s, improved with medications. She also reporte d some shortness of breath. Her workup revealed renal insufficiency. BNP was elevated. Patient was then referred for admission. Past Medical History: Diabetes mellitus type 2, insulin requiring; hypertension; kidney failure. Past Surgical History: Appendectomy and cholecystectomy. Allergies: NO KNOWN DRUG ALLERGIES. Medications: Patient is on lisinopril/hydrochlorothiazide 20/12.5 and Novolin. Family History: Patient denies any history of diabetes or heart disease in her family. Review of Systems: Ten-point system reviewed, negative except as per HPI. Social History: Patient denies any tobacco use, alcohol use, or illicit drug use. Physical Examination: Vital Signs: Blood pressure 212/101, pulse 104, respirations 18, temperature 98.9, O2 100% on room a ir, BMI 27. General: Awake, alert, oriented x3, in mild distress, ill-appearing female. HEENT: Normocephalic, atraumatic. PERRLA. EOMI. Dry mucous membranes. Oropharynx is clear. Conj unctivae anicteric. Neck: Supple. No JVD. Trachea midline. CV: S1, S2. Regular rate and rhythm. Peripheral pulses present. Respiratory: Moving air well except at the bases, some crackles heard. Gastrointestinal: Abdomen is soft, nontender, nondistended. Positive bowel sounds. No guarding or rigidity. Extremities: No clubbing or cyanosis. Patient has pedal edema. No calf tenderness. Neuro: Cranial nerves 2 through 12 intact grossly. No focal neurological deficit. Speech is normal . Skin: No rashes. Normal skin turgor. Psych: Mood is okay. Affect is full. Insight and judgment are good. Laboratory Data: Sodium 138, potassium 4.6, chloride 106, CO2 25, BUN 32, creatinine 1.49, glucose 1 51, calcium 8.2, magnesium 2.4. Troponin less than 0.02. BNP 1697. Albumin 3.3. WBC 8.6, H and H 9.9 and 29.6, platelets 169. UA: Negative nitrite, negative leukocyte esterase, 1+ blood, 3+ protei n. test is negative. Imaging Studies: Chest x-ray shows mild interstitial pneumonitis. MRI/MRA of the brain shows no sig nificant flow abnormality of the [place] of [place] identified. Head CT scan shows no acute intracrani al abnormality. The imaging studies were personally reviewed. EKG: Sinus tachycardia, rate of 101, no significant change compared to previous. Assessment And Plan: 39-year-old female with: 1.Hypertensive emergency. Patient has headache, end-organ damage with elevated kidney function. Pr evious kidney function was normal approximately a year ago. We will start on beta-blockers and cyril nue diuretics. Patient does have headache; however, head CT and MRA are negative. We will add hydra lazine p.r.n. 2.Acute kidney injury. 3.Diabetes mellitus type 2, insulin requiring with hyperglycemia. We will start on sliding scale in sulin and monitor blood glucose levels. 4.Headache, likely related to uncontrolled hypertension. 5.Anemia, normocytic normochromic. We will monitor H and H. 6.Deep venous thrombosis prophylaxis with Lovenox. Plan: Admit patient to Med-Surg, place as inpatient, length of stay greater than 2 midnights. Patie nt will benefit from echocardiogram to rule out cardiomyopathy. [place]. Patient has elevated BNP and peripheral edema, signs of heart failure. SA/MODL Voice ID: [id number]
[2019-06-09 06:47] LABS: Ferritin 22.2 ng/mL (8-388); Potassium 4.5 mmol/L (3.5-5.1); Thyroid Stimulating Hormone 1.38 uIU/mL (0.360-3.740)
[2019-06-09 06:50] LABS: Basophils % 0.8 % (0-1.3); Hematocrit 27.1 % (36.0-45.0); Lymphocytes % 11.9 % (15.3-44.8); MPV 10.6 fL (7.6-11.3); RBC Red Blood Cell Count 3.12 M/uL (3.86-4.86)
[2019-06-09 07:12] LABS: Platelet Estimate DECR; Urine White Blood Cell Casts OK
[2019-06-09 07:13] LABS: Blood Morphology Comment NOT SEEN (NOT SEEN)
[2019-06-09] MEDS: INSULIN -REGULAR HUMAN 50 UNIT/0.5 ML ML SQ SCH ×4 (07:30→20:59)
[2019-06-09] MEDS ORDERED: D50W 25 GM/50 ML SYRINGE IV PRN (08:18)
[2019-06-09] MEDS ORDERED: GLUCAGON 1 MG/VIAL IM PRN (08:18)
[2019-06-09] MEDS ORDERED: METOPROLOL TAR 50 MG TAB PO SCH ×2 (09:00→21:00)
--- NOTE | 2019-06-09 09:18 | P.PN ---
Subjective Date of Service: 06/09/19 Primary Care Provider: Fredy Khan NP Chief Complaint: Headache, nausea Subjective: Other (Patient without significant headache her nausea this morning. Blood pressure improved Overnite.) Physical Examination - Vital Signs Temperature: 97.2 F Blood Pressure: 176/85 Pulse: 102 Respirations: 16 Pulse Ox (%): 97 - Physical Exam General: Alert, In no apparent distress, Oriented x3, Cooperative HEENT: Atraumatic Neck: Supple Respiratory: Clear to auscultation bilaterally, Normal air movement Cardiovascular: Normal pulses, Regular rate/rhythm Gastrointestinal: Normal bowel sounds, Soft and benign, Non-distended, No tenderness, No masses, No rebound, No guarding Musculoskeletal: No erythema, No tenderness, No warmth Integumentary: No tenderness/swelling, No erythema, No warmth, No cyanosis Neurological: Normal speech, Normal strength at 5/5 x4 extr, Normal tone, Normal affect - Studies Laboratory Data (last 24 hrs) 06/08/19 12:45: PT 11.6, INR 0.98 06/08/19 12:45: WBC 8.6, Hgb 9.9 L, Hct 29.6 L, Plt Count 169 06/08/19 12:45: Sodium 138, Potassium 4.6, BUN 32 H, Creatinine 1.49 H, Glucose 151 H, Magnesium 2.4, Total Bilirubin 0.3, AST 14 L, ALT 18, Alkaline Phosphatase 81, Lipase 48 L Medications List Reviewed: Yes Assessment & Plan Discharge Plan: Home Plan to discharge in: 24 Hours Physician Review Additional Text: Impression: Headache, nausea secondary to hypertensive emergency Acute versus chronic renal disease with proteinuria Anemia likely of chronic disease Diabetes mellitus type 2 insulin dependent Plan: Headache, nausea secondary to hypertensive emergency: Blood pressure improved Overnite. Blood pressure slightly elevated this morning. Patient reports that she was previously on lisinopril/hydrochlorothiazide. This was recently discontinued and new medication was initiated. Will continue to make adjustments to her medication. Metoprolol 50 mg 1 pill twice daily. May need to make further adjustments. Hydralazine added if required. Obtain echocardiogram to further evaluate. Renal ultrasound also to be obtained. Continue with DVT prophylaxis-Lovenox. Will consult nephrology for further evaluation and recommendation. Likely discharge in the next 1-2 days with clinical improvement. Acute versus chronic renal disease with proteinuria: Renal function was normal 1 year ago. Need to determine if renal disease is acute versus chronic. She reports some recent renal disease based on lab. Patient recently on DONTA- inhibitor/diuretic. Will discontinue any Donta inhibitor and diuretics. Renal ultrasound to be obtained. Recommend no further use of nonsteroidal anti- inflammatories. Future medications will need to be renally dosed. Nephrology consulted to further evaluate. Anemia likely of chronic disease: Will continue to monitor closely. Diabetes mellitus type 2 insulin dependent, uncontrolled: Will start basal insulin-Lantus. A1c 9.8. Patient takes insulin 70/30. Will continue to make adjustments for better control. Time Spent Managing Pts Care (In Minutes): 55
--- NOTE | 2019-06-09 09:20 | RAD REPORT ---
EXAM DESCRIPTION: US - Renal Ultrasound-Complete - 06/09/2019 9:04 am CLINICAL HISTORY: . Acute renal injury COMPARISON: None. FINDINGS: The right kidney measures 11 cm with a normal echotexture. The left kidney measures 11 cm with a normal echotexture. Hydronephrosis is not seen. No abnormality of the bladder noted IMPRESSION: Unremarkable renal ultrasound.
[2019-06-09] MEDS: ASPIRIN EC 81 MG TAB PO SCH (10:00)
[2019-06-09] MEDS: ENOXAPARIN 40 MG/0.4 ML SQ SCH (10:01)
--- NOTE | 2019-06-09 10:35 | RAD REPORT ---
EXAM DESCRIPTION: RAD - Chest Pa And Lat (2 Views) - 06/09/2019 9:11 am CLINICAL HISTORY: follow up CXR, pneumonitis vs other Chest pain. COMPARISON: Chest Single View dated 06/08/2019; Chest Single View dated 05/12/2016; Chest Single View dated 05/11/2016 FINDINGS: Since yesterday's examination, lung aeration has improved. No focal infiltrate is seen. Mi nimal/trace pleural fluid suspected bilaterally The heart is normal in size. No displaced fractures. IMPRESSION: Mild improvement in lung aeration since yesterday's examination.
[2019-06-09 13:40] LABS: Uric Acid 6.2 mg/dL (2.6-6.0)
[2019-06-09] MEDS: NA CHLORIDE 0.9% 1,000 ML IV SCH (14:36)
--- NOTE | 2019-06-09 16:54 | ECHO ---
HEIGHT: 5 ft 2 in WEIGHT: 151 lb 0 oz DATE OF STUDY: 06/09/[address]: Lam Quezada DO 2-DIMENSIONAL: YES M.MODE: YES DOPPLER: YES COLOR FLOW: YES TDS: PORTABLE: DEFINITY: BUBBLE STUDY: DIAGNOSIS: HYPERTENSION/ DIABETES MELLITUS CARDIAC HISTORY: CATHERIZATION: NO SURGERY: NO PROSTHETIC VALVE: NO PACEMAKER: NO MEASUREMENTS (cm) DIASTOLIC (NORMALS) SYSTOLIC (NORMALS) IVSd 0.9 (0.6-1.2) LA Diam 3.6 (1.9-4.0) LVEF 78% LVIDd 3.8 (3.5-5.7) LVIDs 2.0 (2.0-3.5) %FS 46% LVPWd 1.0 (0.6-1.2) Ao Diam 2.3 (2.0-3.7) 2 DIMENSIONAL ASSESSMENT: RIGHT ATRIUM: NORMAL LEFT ATRIUM: NORMAL RIGHT VENTRICLE: NORMAL LEFT VENTRICLE: NORMAL TRICUSPID VALVE: NORMAL MITRAL VALVE: NORMAL PULMONIC VALVE: NORMAL AORTIC VALVE: NORMAL PERICARDIAL EFFUSION: NONE AORTIC ROOT: NORMAL LEFT VENTRICULAR WALL MOTION: NORMAL DOPPLER/COLOR FLOW: NORMAL COMMENTS: NORMAL 2-DIMENSIONAL ECHOCARDIOGRAM WITH DOPPLER. NO WALL MOTION ABNORMALITY. NO EFFUSION. TECHNOLOGIST: MELBA MCQUEEN
--- NOTE | 2019-06-09 17:22 | CON ---
Date of Consultation: 06/09/2019 Reason For Consultation: Elevated BUN and creatinine. History Of Present Illness: This is a pleasant 39-year-old female, well known to me from the office, seen back in March with significant past medical history of diabetes complicated with neuropathy and nephropathy, hypertension, hyperlipidemia. Patient was presented to the office with acute kidney inj ury at that time back in April 20, creatinine 1.9, GFR of 29, BUN 42. The presumption was secondary t o prerenal, secondary to diuretic. We held the diuretic and patient was also having elevated blood s ugar causing glucose diuresis. Patient apparently had also UTI, was started on antibiotic. At that time, patient came to the hospital complaining of abdominal pain and nausea and vomiting, found to juarez ve elevated BUN and creatinine. For that reason, we have been consulted. Patient denied taking any nonsteroidal. No IV contrast. No other change in her medications. Patient has been on carvedilol. Past Medical History: 1.Hypertension since 2004. 2.Diabetes since 2004 complicated with neuropathy. No retinopathy. 3.Chronic kidney disease stage 3, status post acute kidney injury secondary to glucose diuresis, sec ondary to uncontrolled diabetes. Allergies: NO KNOWN DRUGS ALLERGIES. Medications: Home medications include metoprolol 12.5 b.i.d. and insulin. Current medications in the hospital include aspirin, Lovenox, insulin, metoprolol, and Zofran. Past Surgical History: Negative. Social History: Denies smoking. Denies drinking. Denies drug abuse. Review of Systems: Head and Neck: No red eye. No ear pain. GI: Has nausea and vomiting. : No polyuria. No dysuria. No hematuria. Has nocturia. [employer]: No vaginal discharge. Respiratory: No shortness of breath. Cardiovascular: No chest pain. Endocrine: No polydipsia. Skin: No rash. Physical Examination: Vital Signs: When I saw the patient, the patient is lying in bed. Blood pressure 181/86, pulse of 8 7, afebrile. Patient had good urine output. Chest: Clear to auscultation. Heart: S1, S2. Regular. Abdomen: Soft, nontender. Extremities: Trace edema. Laboratory Data: WBC 8.5, H and H of 07/24.1, platelets 151. Sodium 142, potassium 4.5, bicarb 22, B UN 27, creatinine 1.5. Hemoglobin A1c 9.5. Calcium 8.1. Transferrin saturation of 23, ferritin of 22. Serum protein electrophoresis is still pending. Urinalysis; +3 protein. Serology is still pend ing. Renal ultrasound showing normal size kidney 09/07. No hydronephrosis. Assessment And Plan: 1.Acute kidney injury on chronic kidney disease. Patient's baseline creatinine as I mentioned back in March of 1.9, GFR of 29. Currently, her kidney function is slightly better. Again, her acute kidn ey injury is secondary to glucose diuresis secondary to uncontrolled blood sugar. Given the high hem oglobin A1c, I am going to start the patient on gentle hydration and we will monitor. We will follow up serum protein electrophoresis and we will monitor the patient. 2.Iron-deficiency anemia. We will start the patient on oral iron. 3.Proteinuria mostly secondary to diabetic neuropathy. Given the anemia, light chain disease needs to be ruled out. We will follow up serum protein electrophoresis. 4.Hypertension, not controlled. I am going to go ahead and increase her metoprolol to 25 b.i.d. and we will add calcium channel danisha and we will follow up the patient. 5.Diabetes, as by hospitalist. 6.Gastroenteritis/gastroparesis, as by the hospitalist. HORACIO/NATANAEL Voice ID: [id number] Report ID: [id number]
[2019-06-09] MEDS: METOPROLOL TAR 50 MG TAB PO SCH (20:57)
[2019-06-10 04:41] LABS: Albumin 2.7 g/dL (3.4-5.0); Phosphorus 3.7 mg/dL (2.5-4.9); Potassium 4.6 mmol/L (3.5-5.1)
[2019-06-10] MEDS: INSULIN -REGULAR HUMAN 50 UNIT/0.5 ML ML SQ SCH ×4 (07:30→21:00)
[2019-06-10 08:20] LABS: Urine Protein/Creatinine Ratio 2.65 ratio (<0.15)
[2019-06-10] MEDS: ASPIRIN EC 81 MG TAB PO SCH (08:23)
[2019-06-10] MEDS: INSULIN GLARGINE 100 UNITS/ML SQ SCH (08:23)
[2019-06-10] MEDS: METOPROLOL TAR 50 MG TAB PO SCH (08:32)
[2019-06-10] MEDS: ENOXAPARIN 40 MG/0.4 ML SQ SCH (08:33)
[2019-06-10] MEDS: AMLODIPINE 10 MG TAB PO SCH (08:33)
[2019-06-10] MEDS: NA CHLORIDE 0.9% 1,000 ML IV SCH (09:20)
--- NOTE | 2019-06-10 10:59 | P.DS ---
Admission Date: 06/08/19 Discharge Date: 06/10/19 Primary Care Provider: Fredy Khan NP; Nephrology-Dr. Paul Disposition: ROUTINE DISCHARGE Discharge Condition: GOOD Reason for Admission: Headache, nausea Consultations: Nephrology-Dr. Paul Procedures: ECHO: EF 78% LEFT VENTRICULAR WALL MOTION: NORMAL DOPPLER/COLOR FLOW: NORMAL COMMENTS: NORMAL 2-DIMENSIONAL ECHOCARDIOGRAM WITH DOPPLER. NO WALL MOTION ABNORMALITY. NO EFFUSION. CT head: FINDINGS: No intracranial hemorrhage, hydrocephalus or extra-axial fluid collection.No areas of brain edema or evidence of midline shift. The paranasal sinuses and mastoids are clear. The calvarium is intact. IMPRESSION: No acute intracranial abnormality. MRI Brain: FINDINGS: 3D noncontrast [id number] MR angiography of the [place] was performed. No aneurysm, flow-limiting stenosis or vascular malformation is seen. origin of the right posterior communicating artery noted, normal variant. Forward flow seen in mildly left-sided dominant vertebral arteries. The visualized dural venous sinuses appear patent. IMPRESSION: No significant flow abnormality of the [place] is identified. Follow up CXR: FINDINGS: Since yesterday's examination, lung aeration has improved. No focal infiltrate is seen. Minimal/trace pleural fluid suspected bilaterally The heart is normal in size. No displaced fractures. IMPRESSION: Mild improvement in lung aeration since yesterday's examination. Medical Problem List: Headache, nausea secondary to hypertensive emergency Acute on chronic renal disease with proteinuria Anemia likely of chronic disease with iron and B12 deficiency Diabetes mellitus type 2 insulin dependent Brief History of Present Illness: 39-year-old female with diabetes, hypertension and chronic renal disease presented with headache and nausea. Patient found to have elevated blood pressure. Patient required hospitalization to further treat and address. Hospital Course: Patient presented with headache, nausea secondary to hypertensive emergency. Patient required hospitalization for better control. CT head, MRI of brain unremarkable. Echocardiogram unremarkable with normal ejection fraction. Nephrology was consulted due to her chronic renal disease. Metoprolol was adjusted. Norvasc was added. At discharge she is without significant symptoms. Blood pressure now better controlled. At discharge she will continue with metoprolol 100 mg 1 pill twice daily and Norvasc 10 mg daily. Recommend to maintain blood pressures less 150/80. Further adjustment can be done by nephrology. Patient with acute on chronic renal disease with proteinuria. Nephrology was consulted. Evaluation for proteinuria obtained. Renal function at baseline. Recommend no further use of nonsteroidal anti-inflammatories. Future medications will need to be renally dose. Recommend follow up with nephrology in 1-2 weeks. Recommend to recheck lab-BMP in 1-2 weeks. Medications have been adjusted. Patient with anemia of chronic disease with iron and B12 deficiency. At discharge hemoglobin stable. She will continue with iron 325 mg daily and B12 1000 mg daily. Recommend to recheck CBC in 2-4 weeks to monitor her progress. Patient with diabetes mellitus type 2 insulin dependent. A1c 9.8. At discharge patient will continue with her insulin 70/30 at 20 units subcu twice daily. Recommend to monitor blood sugars at least twice daily. Recommend blood sugars less than 140 fasting and less than 200 after meals. Further adjustment in her diabetes medication may be required for better blood sugar control. This can be done her PCP. Recommend follow up with PCP in 1 week. Vital Signs/Physical Exam: Temp Pulse Resp BP Pulse Ox 97 F 80 16 167/73 H 96 06/10/19 08:00 06/10/19 08:33 06/10/19 08:00 06/10/19 08:33 06/10/19 08:00 General: Alert, In no apparent distress, Oriented x3, Cooperative HEENT: Atraumatic Neck: Supple Respiratory: Clear to auscultation bilaterally, Normal air movement Cardiovascular: Normal pulses, Regular rate/rhythm Gastrointestinal: Normal bowel sounds, Soft and benign, Non-distended, No tenderness, No masses, No rebound, No guarding Musculoskeletal: No erythema, No tenderness, No warmth Integumentary: No tenderness/swelling, No erythema, No warmth, No cyanosis Neurological: Normal speech, Normal strength at 5/5 x4 extr, Normal tone, Normal affect Laboratory Data at Discharge: WBC 8.5 K/uL (4.3-10.9) 06/09/19 05:27 Hgb 9.0 g/dL (12.0-15.0) L 06/09/19 05:27 Hct 27.1 % (36.0-45.0) L 06/09/19 05:27 Plt Count 151 K/uL (152-406) L 06/09/19 05:27 PT 11.6 SECONDS (9.5-12.5) 06/08/19 12:45 INR 0.98 06/08/19 12:45 Sodium 138 mmol/L (136-145) 06/10/19 03:57 Potassium 4.6 mmol/L (3.5-5.1) 06/10/19 03:57 BUN 35 mg/dL (7-18) H 06/10/19 03:57 Creatinine 2.04 mg/dL (0.55-1.3) H 06/10/19 03:57 Glucose 179 mg/dL (74-106) H 06/10/19 03:57 Uric Acid 6.2 mg/dL (2.6-6.0) H 06/09/19 13:08 Phosphorus 3.7 mg/dL (2.5-4.9) 06/10/19 03:57 Magnesium 2.4 mg/dL (1.8-2.4) 06/08/19 12:45 Total Bilirubin 0.3 mg/dL (0.2-1.0) 06/08/19 12:45 AST 14 U/L (15-37) L 06/08/19 12:45 ALT 18 U/L (12-78) 06/08/19 12:45 Alkaline Phosphatase 81 U/L (45-117) 06/08/19 12:45 Troponin I < 0.02 ng/mL (0.0-0.045) 06/08/19 23:30 Triglycerides 90 mg/dL (<150) 06/09/19 05:27 Cholesterol 160 mg/dL (<200) 06/09/19 05:27 HDL Cholesterol 58 mg/dL (40-60) 06/09/19 05:27 Cholesterol/HDL Ratio 2.76 06/09/19 05:27 Lipase 48 U/L (73-393) L 06/08/19 12:45 Home Medications: Amlodipine [Norvasc*] 10 mg PO DAILY #30 tab 06/10/19 Cyanocobalamin (Vitamin B-12) [Vitamin B-12] 1,000 mcg PO DAILY #90 tablet 06/10 Ferrous Sulfate [Iron] 325 mg PO DAILY #90 tablet 06/10/19 Insulin 70/30 NPH/Reg Human [Novolin 70/30*] 20 unit SQ BID #1 bottle 06/10/19 Metoprolol Tartrate 100 mg PO BID #60 tablet 06/10/19 New Medications: Amlodipine [Norvasc*] 10 mg PO DAILY #30 tab Cyanocobalamin (Vitamin B-12) [Vitamin B-12] 1,000 mcg PO DAILY #90 tablet Ferrous Sulfate [Iron] 325 mg PO DAILY #90 tablet Insulin 70/30 NPH/Reg Human [Novolin 70/30*] 20 unit SQ BID #1 bottle Metoprolol Tartrate 100 mg PO BID #60 tablet Patient Discharge Instructions: 1. Recommend follow-up with PCP within 1 week to follow up hospitalization. 2. Patient presented with headache, nausea secondary to hypertensive emergency. Patient required hospitalization for better control. CT head, MRI of brain unremarkable. Echocardiogram unremarkable with normal ejection fraction. Nephrology was consulted due to her chronic renal disease. Metoprolol was adjusted. Norvasc was added. At discharge she is without significant symptoms. Blood pressure now better controlled. At discharge she will continue with metoprolol 100 mg 1 pill twice daily and Norvasc 10 mg daily. Recommend to maintain blood pressures less 150/ 80. Further adjustment can be done by nephrology. 3. Patient with acute on chronic renal disease with proteinuria. Nephrology was consulted. Evaluation for proteinuria obtained. Renal function at baseline. Recommend no further use of nonsteroidal anti-inflammatories. Future medications will need to be renally dose. Recommend follow up with nephrology in 1-2 weeks. Recommend to recheck lab-BMP in 1-2 weeks. Medications have been adjusted. 4. Patient with anemia of chronic disease with iron and B12 deficiency. At discharge hemoglobin stable. She will continue with iron 325 mg daily and B12 1000 mg daily. Recommend to recheck CBC in 2-4 weeks to monitor her progress. 5. Patient with diabetes mellitus type 2 insulin dependent. A1c 9.8. At discharge patient will continue with her insulin 70/30 at 20 units subcu twice daily. Recommend to monitor blood sugars at least twice daily. Recommend blood sugars less than 140 fasting and less than 200 after meals. Further adjustment in her diabetes medication may be required for better blood sugar control. This can be done her PCP. Recommend follow up with PCP in 1 week. Diet: ADA Activity: Ad shena Time spent managing pt's care (in minutes): 55
--- NOTE | 2019-06-10 14:53 | PN ---
Date of Progress Note: 06/10/2019 Subjective: Patient was admitted with acute kidney injury secondary to glucose diuresis. Patient st arted on IV fluid. Lab show worsening in kidney function. Physical Examination: Vital Signs: Blood pressure 167/73, pulse of 80, afebrile. Patient had good urine output over the n ight. Chest: Clear to auscultation. Heart: S1, S2. Regular. Abdomen: Soft and nontender. Extremities: No edema. Laboratory Data: WBC 8.5, H and H 9/27.1, and platelet 151. Sodium of 138, potassium 4.6, bicarb 25 , BUN 35, creatinine up to 2, GFR down to 27, calcium 7.9, phosphorus 3.7, albumin 2.7. PTH 102. PC ratio 2.6. Serology still pending. Medications: Current medications the patient on; its include: 1.Lovenox. 2.Aspirin. 3.Amlodipine. 4.Metoprolol 100 b.i.d. 5.Nitroglycerin. 6.Tylenol. 7.Normal saline at 50 per hour. Assessment And Plan: 1.Acute kidney injury, possible prerenal/worsening progression of diabetes nephropathy. No activity on the UA. Proteinuric, close to nephrotic. I am going to go ahead and send for full serology and we will monitor the patient. 2.Hypertension, not controlled. We just started the patient on amlodipine. We will follow up the r esponse. Given the proteinuria, I am going to go ahead and switch her metoprolol to carvedilol. 3.Proteinuria, close to nephrotic, possibly secondary to diabetes nephropathy. We will follow up fu ll serology given the worsening in kidney function. 4.Anemia. With the presence of acute kidney injury, light chain disease needs to be ruled out. SPE P is still pending. 5.Secondary hyperparathyroidism. Calcium and phosphorus on the goal. I do not see the need for vit nichole D for the time being, I am going to check for vitamin D level and we will follow up the patient. MANOJ Voice ID: [id number] Report ID: [id number]
[2019-06-10] MEDS: CARVEDILOL 25 MG TAB PO SCH (17:12)
[2019-06-11 05:19] VITALS: TEMP 97.2
[2019-06-11] MEDS: CARVEDILOL 25 MG TAB PO SCH (05:21)
[2019-06-11] MEDS: NA CHLORIDE 0.9% 1,000 ML IV SCH (05:21)
[2019-06-11 05:52] VITALS: O2SAT 97
[2019-06-11 06:33] LABS: Albumin 2.7 g/dL (3.4-5.0); Phosphorus 3.9 mg/dL (2.5-4.9); Potassium 4.2 mmol/L (3.5-5.1)
[2019-06-11] MEDS: INSULIN -REGULAR HUMAN 50 UNIT/0.5 ML ML SQ SCH (07:30)
[2019-06-11] MEDS: INSULIN GLARGINE 100 UNITS/ML SQ SCH (07:55)
[2019-06-11] MEDS: ASPIRIN EC 81 MG TAB PO SCH (07:56)
[2019-06-11] MEDS: AMLODIPINE 10 MG TAB PO SCH (07:56)
[2019-06-11] MEDS: ENOXAPARIN 40 MG/0.4 ML SQ SCH (07:56)
[2019-06-11 07:57] VITALS: BP 141/65
--- NOTE | 2019-06-11 10:43 | P.PN ---
Subjective Date of Service: 06/11/19 Primary Care Provider: Fredy Khan NP; Nephrology-Dr. Paul Chief Complaint: Headache, nausea Subjective: Improving Pt with DM and CKD , admitted for GUS today no new complaints feels better Cr stable can be discharged from nephrology point of view and to follow with nephrology clinic in 2-3 wks Physical Examination - Vital Signs Temperature: 97.2 F Blood Pressure: 141/65 Pulse: 84 Respirations: 16 Pulse Ox (%): 92 - Physical Exam General: In no apparent distress, Oriented x3 HEENT: Atraumatic Neck: Supple, Without JVD or thyroid abnormality Respiratory: Clear to auscultation bilaterally Cardiovascular: No edema, Regular rate/rhythm, Normal S1 S2 Gastrointestinal: Normal bowel sounds - Studies Microbiology Data (last 24 hrs): 06/08/19 11:14 Clean Catch Urine [place] Count - Final >100,000 CFU/ML. 06/08/19 11:14 Clean Catch Urine - Final Staph Epidermidis Medications List Reviewed: Yes Assessment And Plan - Current Problems (Diagnosis) (1) GUS (acute kidney injury) Current Visit: Yes Status: Acute - Plan Acute kidney injury, on CKD III Due to prerenal azotemia UPC 0.6, US no hydro CKD due to DM Cr stable now Serology W/u pending DM as per primary HTN controlled now Anemia Hb stable F/u SPEP
[2019-06-12 06:32] LABS: Rheumatoid Factor NEG (NEG)
[2019-06-12 22:54] LABS: Albumin, (SPE) 3.8 g/dL (3.8-4.8); Alpha-1-Globulins 0.3 g/dL (0.2-0.3); Alpha-2-Globulins 0.8 g/dL (0.5-0.9); INTERPRETATION REPORT
== END 2019-06-11 10:59 | disposition home or self-care (01) | DRG 305 ==
LOC: ER 10:46 → ERHOLD 15:39 → 2ND 19:53
PROVIDERS: ADMIT Family Medicine; ATTEND Family Medicine
DX: I16.1 Hypertensive emergency (principal); N17.9 Acute kidney failure, unspecified; N25.81 Secondary hyperparathyroidism of renal origin; I12.9 Hypertensive chronic kidney disease with stage 1 through stage 4 chronic kidney disease, or unspecified chronic kidney disease; N18.3 Chronic kidney disease, stage 3 (moderate); E11.9 Type 2 diabetes mellitus without complications; D64.9 Anemia, unspecified; R80.9 Proteinuria, unspecified
CPT/HCPCS: 36415; 70450; 70544; 71045; 71046; 76770; 80048; 80061; 80069; 80074; 80076; 81003; 81025; 82550; 82570; 82607; 82652; 82728; 82962; 83036; 83520; 83540; 83690; 83735; 83880; 83970; 84156; 84165; 84439; 84443; 84466; 84484; 84550; 85025; 85610; 86021; 86038; 86160; 86225; 86430; 87077; 87086; 87088; 87186; 87389; 93005; 93306; 94760; 96361; 96374; 96375; 99285; J0360; J1650; J2405; J7030

== ENCOUNTER 2019-06-14 23:57 | Observation (INO) | payer SELFPAY ==
[2019-06-15] MEDS ORDERED: KETOROLAC 30 MG/ML INJ ONE (00:43)
[2019-06-15 00:53] LABS: Absolute Lymphocytes (CBC) 1.5 K/uL (0.7-4.9); Basophils % 0.9 % (0-1.3); Lymphocytes % 20.5 % (15.3-44.8); MPV 10.7 fL (7.6-11.3); RBC Red Blood Cell Count 3.32 M/uL (3.86-4.86)
[2019-06-15 00:54] LABS: Protime INR 1.03
[2019-06-15 01:08] LABS: ALT/SGPT 115 U/L (12-78); AST/SGOT 56 U/L (15-37); Albumin 3.1 g/dL (3.4-5.0); Alkaline Phosphatase 156 U/L (45-117); BUN Blood Urea Nitrogen 34 mg/dL (7-18); Bicarbonate 24 mmol/L (21-32); Bilirubin Direct < 0.1 mg/dL (0-0.2); Bilirubin Total 0.2 mg/dL (0.2-1.0); Glucose Level 185 mg/dL (74-106); Magnesium 2.4 mg/dL (1.8-2.4); NT PRO-BNP 1930 pg/mL (<125); Potassium 4.9 mmol/L (3.5-5.1); Protein, Total 6.5 g/dL (6.4-8.2); Sodium Level 140 mmol/L (136-145); Troponin (Emerg Dept Use Only) < 0.02 ng/mL (0.0-0.045)
[2019-06-15] MEDS ORDERED: ACETAMINOPHEN 500 MG TAB PO PRN (02:21)
[2019-06-15] MEDS ORDERED: ALPRAZOLAM 0.25 MG TABLET PO PRN (02:21)
[2019-06-15] MEDS ORDERED: MORPHINE 4 MG/ML SYR IV PRN (02:21)
--- NOTE | 2019-06-15 02:22 | EDPHYS ---
Physician Documentation [facility] Name: Mercedes Marin Age: 39 yrs Sex: Female : 1980 Arrival Date: 06/15/2019 Time: 00:09 Bed 20 Private MD: ED Physician Mauricio Garay HPI: 06/15 02:03 This 39 yrs old Female presents to ER via Wheelchair with complaints of Chest tw4 Pain, Shortness Of Breath. 02:03 The patient or guardian reports chest pain that is located primarily in the anterior tw4 chest wall. The pain does not radiate. Associated signs and symptoms: The patient has no apparent associated signs or symptoms. The chest pain is described as dull. Duration: The patient or guardian reports a single episode, that is now resolved. The patient has not experienced similar symptoms in the past. 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 - Social history:: Smoking status: Patient/guardian denies using tobacco. - Ebola Screening: : No symptoms or risks identified at this time. ROS: 02:03 Constitutional: Negative for fever, chills, and weight loss, Eyes: Negative for injury, tw4 pain, redness, and discharge, Respiratory: Negative for shortness of breath, cough, wheezing, and pleuritic chest pain, Abdomen/GI: Negative for abdominal pain, nausea, vomiting, diarrhea, and constipation, Back: Negative for injury and pain, MS/Extremity: Negative for injury and deformity, Skin: Negative for injury, rash, and discoloration, Neuro: Negative for headache, weakness, numbness, tingling, and seizure. 02:03 Cardiovascular: Positive for chest pain, Negative for edema, orthopnea, palpitations, paroxysmal nocturnal dyspnea. Exam: 02:03 Constitutional: This is a well developed, well nourished patient who is awake, alert, tw4 and in no acute distress. Head/Face: Normocephalic, atraumatic. Chest/axilla: Normal chest wall appearance and motion. Nontender with no deformity. No lesions are appreciated. Cardiovascular: Regular rate and rhythm with a normal S1 and S2. No gallops, murmurs, or rubs. Normal PMI, no JVD. No pulse deficits. Respiratory: Lungs have equal breath sounds bilaterally, clear to auscultation and percussion. No rales, rhonchi or wheezes noted. No increased work of breathing, no retractions or nasal flaring. Abdomen/GI: Soft, non-tender, with normal bowel sounds. No distension or tympany. No guarding or rebound. No evidence of tenderness throughout. Back: No spinal tenderness. No costovertebral tenderness. Full range of motion. Skin: Warm, dry with normal turgor. Normal color with no rashes, no lesions, and no evidence of cellulitis. MS/ Extremity: Pulses equal, no cyanosis. Neurovascular intact. Full, normal range of motion. Neuro: Awake and alert, GCS 15, oriented to person, place, time, and situation. Cranial nerves II-XII grossly intact. Motor strength 5/5 in all extremities. Sensory grossly intact. Cerebellar exam normal. Normal gait. Vital Signs: 00:12 BP 176 / 88; Pulse 85; Resp 19; Temp 98.8; Pulse Ox 95% ; Weight 68.04 kg; Height 5 ft. ea 2 in. (157.48 cm); Pain 8/10; 01:11 BP 155 / 74; Pulse 85; Resp 18; Pulse Ox 96% on R/A; ea 02:30 BP 166 / 81; Pulse 83; Resp 20 S; Pulse Ox 95% on R/A; cc3 00:12 Body Mass Index 27.44 (68.04 kg, 157.48 cm) ea MDM: 00:15 Patient medically screened. tw4 02:20 Differential diagnosis: acute myocardial infarction, coronary artery disease chest wall tw4 pain, gastroesophageal reflux disease (GERD). HEART Score: History: Slightly Suspicious (0), ECG: Normal (0), Age: < or = 45 years (0), Risk Factors: 1 or 2 risk factors (1), Troponin: < or = 1 x Normal Limit (0), Total Score = 1. Data reviewed: vital signs, nurses notes. Data interpreted: coremaker bench: rhythm is normal sinus rhythm, Pulse oximetry: Interpretation: normal. Test interpretation: by ED physician or midlevel provider: ECG. Counseling: I had a detailed discussion with the patient and/or guardian regarding: the historical points, exam findings, and any diagnostic results supporting the discharge/admit diagnosis, lab results, radiology results. Physician consultation: Pascual Galvez MD was contacted at 02:20, regarding admission, to the telemetry unit. patient's condition, and will see patient in inpatient room. 06/15 00:21 Order name: Basic Metabolic Panel 06/15 00:21 Order name: CBC with Diff; Complete Time: 02:16 06/15 00:21 Order name: LFT's 06/15 00:21 Order name: Magnesium 06/15 00:21 Order name: NT PRO-BNP 06/15 00:21 Order name: PT-INR; Complete Time: 02:16 06/15 00:21 Order name: Troponin (emerg Dept Use Only) 06/15 00:21 Order name: XRAY Chest (1 view) 06/15 00:21 Order name: EKG; Complete Time: 00:25 06/15 02:25 Order name: Lipid Profile [facility] 06/15 02:25 Order name: Lipid Profile [facility] 06/15 00:21 Order name: Cardiac monitoring; Complete Time: 00:44 06/15 00:22 Order name: EKG - Nurse/Tech; Complete Time: 00:44 06/15 00:22 Order name: IV Saline Lock; Complete Time: 00:44 06/15 00:22 Order name: Labs collected and sent; Complete Time: 00:43 06/15 00:22 Order name: O2 Per Protocol; Complete Time: 00:43 06/15 00:22 Order name: O2 Sat Monitoring; Complete Time: 00:43 06/15 02:27 Order name: Heart Healthy [facility] EC:20 Rate is 84 beats/min. Rhythm is regular. QRS [place] is Normal. [place] interval is normal. QRS tw4 interval is normal. QT interval is normal. No Q waves. T waves are Normal. No ST changes noted. Clinical impression: NSR w/ Non-specific ST/T Changes. Interpreted by me. Reviewed by me. Administered Medications: 00:50 Drug: TORadol 30 mg Route: IVP; Site: left antecubital; ea 01:00 Follow up: Response: No adverse reaction; Pain is decreased; RASS: Alert and Calm (0) cc3 07:17 Drug: Lasix 40 mg Route: IVP; Site: left antecubital; hj Disposition: 06/15/19 02:20 Hospitalization ordered by Pascual Galvez for Observation. Preliminary diagnosis are Acute kidney failure, unspecified, Chest pain, unspecified. - Bed requested for Telemetry/MedSurg (observation). - Status is Observation. iw - Condition is Stable. - Problem is new. - Symptoms are unchanged. UTI on Admission? No Signatures: Dispatcher [employer] EDMN Talia Jackson RN Sonia Salomon RN Fabricio Leigh, RN Zenobia Cuevas RN Mauricio Hurtado ea, MD MD tw4 Brittny Casanova cc3 Corrections: (The following items were deleted from the chart) 01:37 00:34 Chest For PE Angio+CT.RAD.BRZ ordered. EDMN EDMN 02:34 02:20 Hospitalization Ordered by Pascual Galvez MD for Observation. Preliminary mw diagnosis is Acute kidney failure, unspecified; Chest pain, unspecified. Bed requested for Telemetry/MedSurg (observation). Status is Observation. Condition is Stable. Problem is new. Symptoms are unchanged. UTI on Admission? No. tw4 05:22 02:34 06/15/2019 02:20 Hospitalization Ordered by Pascual Galvez MD for Observation. mw Preliminary diagnosis is Acute kidney failure, unspecified; Chest pain, unspecified. Bed requested for [facility] ER HOLD. Status is Observation. Condition is Stable. Problem is new. Symptoms are unchanged. UTI on Admission? No. mw 08:17 05:22 06/15/2019 02:20 Hospitalization Ordered by Pascual Galvez MD for Observation. iw Preliminary diagnosis is Acute kidney failure, unspecified; Chest pain, unspecified. Bed requested for Telemetry/MedSurg (observation). Status is Observation. Condition is Stable. Problem is new. Symptoms are unchanged. UTI on Admission? No. mw
--- NOTE | 2019-06-15 02:22 | ER ---
Nurse's Notes [facility] Name: Mercedes Marin Age: 39 yrs Sex: Female : 1980 Arrival Date: 06/15/2019 Time: 00:09 Bed 20 Private MD: Diagnosis: Acute kidney failure, unspecified;Chest pain, unspecified Presentation: 06/15 00:10 Presenting complaint: Patient states: Pt complaining of chest pain that started ea night reports it worsened. Pt reports pain worsens with inspiration. Transition of care: patient was not received from another setting of care. Onset of symptoms was June 15, 2019. Risk Assessment: Do you want to hurt yourself or someone else? Patient reports no desire to harm self or others. Initial Sepsis Screen: Does the patient meet any 2 criteria? No. Patient's initial sepsis screen is negative. Does the patient have a suspected source of infection? No. Patient's initial sepsis screen is negative. Care prior to arrival: None. 00:10 Method Of Arrival: Wheelchair ea 00:10 Acuity: ALONDRA 3 ea Triage Assessment: 00:14 General: Appears uncomfortable, Behavior is calm, cooperative, appropriate for age. ea Pain: Complains of pain in chest. Neuro: Level of Consciousness is awake, alert, obeys commands, Oriented to person, place, time, situation. Derm: Skin is clammy, Skin is pale, Skin temperature is warm. 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 - Social history:: Smoking status: Patient/guardian denies using tobacco. - Ebola Screening: : No symptoms or risks identified at this time. Screenin:13 Abuse screen: Denies threats or abuse. Nutritional screening: No deficits noted. ea Tuberculosis screening: No symptoms or risk factors identified. Fall Risk None identified. Assessment: 00:14 General: Appears uncomfortable, Behavior is calm, cooperative, appropriate for age. ea Pain: Complains of pain in mid-sternal area. Pain: Pain does not radiate. Neuro: Level of Consciousness is awake, alert, obeys commands, Oriented to person, place, time, situation. Cardiovascular: Patient's skin is warm and dry. Respiratory: Airway is patent Respiratory effort is even, unlabored, Respiratory pattern is regular, symmetrical, Parent/caregiver reports the patient having cough that is. Derm: Skin is clammy, Skin is pale, Skin temperature is warm. Vital Signs: 00:12 BP 176 / 88; Pulse 85; Resp 19; Temp 98.8; Pulse Ox 95% ; Weight 68.04 kg; Height 5 ft. ea 2 in. (157.48 cm); Pain 8/10; 01:11 BP 155 / 74; Pulse 85; Resp 18; Pulse Ox 96% on R/A; ea 02:30 BP 166 / 81; Pulse 83; Resp 20 S; Pulse Ox 95% on R/A; cc3 00:12 Body Mass Index 27.44 (68.04 kg, 157.48 cm) ea ED Course: 00:09 Patient arrived in ED. ds1 00:11 Triage completed. ea 00:11 Arm band placed on right wrist. Patient placed in an exam room, on a stretcher, on ea pulse oximetry. 00:13 Patient has correct armband on for positive identification. Bed in low position. Call ea light in reach. Side rails up X2. 00:15 Mauricio Garay MD is Attending Physician. tw4 00:21 Zenobia Locke, WALDEMAR is Primary Nurse. ea 00:43 Inserted saline lock: 22 gauge in left antecubital area, using aseptic technique. Blood ea collected. 00:49 X-ray completed. Portable x-ray completed in exam room. Patient tolerated procedure kw well. 01:15 XRAY Chest (1 view) In Process Unspecified. EDMS 02:18 Pascual Galvez MD is Hospitalizing Provider. tw4 03:34 No provider procedures requiring assistance completed. Patient admitted, IV remains in ea place. Administered Medications: 00:50 Drug: TORadol 30 mg Route: IVP; Site: left antecubital; ea 01:00 Follow up: Response: No adverse reaction; Pain is decreased; RASS: Alert and Calm (0) cc3 07:17 Drug: Lasix 40 mg Route: IVP; Site: left antecubital; hj Outcome: 02:20 Decision to Hospitalize by Provider. tw4 03:34 Admitted to ER Hold. Please see [facility] for further documentation. delonte 03:34 Condition: stable 03:34 Instructed on the need for admit. 08:17 Patient left the ED. iw Signatures: Dispatcher [employer] EDKS Vilma Dang ds1 Sonia Dong RN RN iw Whitley, Kimberlee kw Joaquin, Henry, RN RN hj Antunez, Elena, RN RN ea Wadley, Terrence, MD MD tw4 Brittny Casanova cc3
[2019-06-15 03:49] VITALS: BMI 27.4
[2019-06-15] MEDS ORDERED: D50W 25 GM/50 ML SYRINGE IV PRN ×2 (07:21→12:48)
[2019-06-15] MEDS ORDERED: GLUCAGON 1 MG/VIAL IM PRN ×2 (07:21→12:48)
[2019-06-15] MEDS ORDERED: FUROSEMIDE 40 MG/4 ML VIAL ONE (07:22)
[2019-06-15] MEDS ORDERED: REGADENOSON 0.4 MG/5 ML SYR IV ONE (07:45)
--- NOTE | 2019-06-15 07:53 | EKG ---
Test Date: 2019-06-15 Test Time: 00:11:05 Textile Technologist: RV MEASUREMENT RESULTS: Intervals: Rate: 84 ME: 158 QRSD: 60 QT: 364 QTc: 430 Pawling: P: 60 ME: 158 QRS: 29 T: 73 INTERPRETIVE STATEMENTS: Normal sinus rhythm Low voltage QRS Borderline ECG Compared to ECG 06/08/2019 11:23:41 Low QRS voltage now present Sinus tachycardia no longer present Electronically Signed On 06-15-19 07:52:26 CDT by Gerson Aguilar
--- NOTE | 2019-06-15 08:19 | RAD REPORT ---
EXAM DESCRIPTION: US - Liver Only - 06/15/2019 7:40 am CLINICAL HISTORY: Abdominal pain, abnormal LFTs COMPARISON: None. TECHNIQUE: Sonographic evaluation of the right upper quadrant was performed as a dedicated liver ult rasound study. FINDINGS: Liver is 14 cm. No focal liver parenchymal lesion. Capsule nodularity Doppler evaluation s hows normal velocity, flow direction and waveform of the portal vein. No biliary tree dilatation the liver parenchyma. Right-side pleural effusion is present only partially imaged. Spleen is 9 cm. No focal splenic abnormality. IMPRESSION: No liver abnormality identified.
--- NOTE | 2019-06-15 08:45 | P.HP ---
Certification for Inpatient Patient admitted to: Observation With expected LOS: <2 Midnights Patient will require the following post-hospital care: None Practitioner: I am a practitioner with admitting privileges, knowledge of patient current condition, hospital course, and medical plan of care. Services: Services provided to patient in accordance with Admission requirements found in Title 42 Section 412.3 of the Code of Federal Regulations Patient History Date of Service: 06/15/19 Reason for admission: CP r/o ACS History of Present Illness: Pt is a 39yo who was admitted to the hospital with CP. Patient was recently in the hospital for uncontrolled hypertension and chest pain. She had extensive workup it was found have diabetic nephropathy with significant proteinuria. I am not sure if patient was considered to be nephrotic range proteinuria. Patient also has secondary hyperparathyroidism. Patient's chest pain is mainly in the sternal region. Patient does have a pleuritic component to it. With patient's numerous risk factors will go ahead and just get a stress test in the morning if this is negative then plan to discharge home. Allergies No Known Allergies Allergy (Verified 06/08/19 22:22) Home Medications: Amlodipine [Norvasc*] 10 mg PO DAILY #30 tab 06/10/19 Cyanocobalamin (Vitamin B-12) [Vitamin B-12] 1,000 mcg PO DAILY #90 tablet 06/10 Ferrous Sulfate [Iron] 325 mg PO DAILY #90 tablet 06/10/19 Insulin 70/30 NPH/Reg Human [Novolin 70/30*] 20 unit SQ BID #1 bottle 06/10/19 Metoprolol Tartrate 100 mg PO BID #60 tablet 06/10/19 - Past Medical/Surgical History Diabetic: Yes -: Diabetes -: Hypertension -: Chronic kidney disease -: Diabetic nephropathy -: Pancreatic pseudocystectomy -: Appendectomy - Family History Mother Medical History: Heart disease, Diabetes - Social History Smoking Status: Never smoker Alcohol use: No CD- Drugs: No Review of Systems 10-point ROS is otherwise unremarkable Physical Examination - Vital Signs Temperature: 98.2 F Blood Pressure: 167/80 Pulse: 88 Respirations: 17 Pulse Ox (%): 93 - Physical Exam General: Alert, In no apparent distress, Oriented x3 HEENT: Atraumatic, PERRLA, Mucous membr. moist/pink, EOMI, Sclerae nonicteric Neck: Supple, 2+ carotid pulse no bruit, No LAD, Without JVD or thyroid abnormality Respiratory: Clear to auscultation bilaterally, Normal air movement Cardiovascular: Regular rate/rhythm, Normal S1 S2, No murmurs Gastrointestinal: Normal bowel sounds, Soft and benign, Non-distended, No tenderness Musculoskeletal: No clubbing, No swelling, No tenderness Integumentary: No rashes Neurological: Normal gait, Normal speech, Normal strength at 5/5 x4 extr, Normal tone, Sensation intact, Cranial nerves 3-12 intact, Normal affect Lymphatics: No axilla or inguinal lymphadenopathy - Studies Laboratory Data (last 24 hrs) 06/15/19 00:40: PT 12.1, INR 1.03 06/15/19 00:40: WBC 7.3 D, Hgb 9.4 L, Hct 29.0 L, Plt Count 169 06/15/19 00:40: Sodium 140, Potassium 4.9, BUN 34 H, Creatinine 1.84 H, Glucose 185 H, Magnesium 2.4, Total Bilirubin 0.2, AST 56 H, ALT 115 H, Alkaline Phosphatase 156 H Assessment & Plan - Problems (Diagnosis) (1) Chest pain, rule out acute myocardial infarction Current Visit: Yes Status: Acute (2) Diabetic nephropathy Current Visit: Yes Status: Acute (3) Hypertension Current Visit: Yes Status: Acute - Plan 1. Serial troponins and EKG 2. Echocardiogram from last admission has been reviewed and will proceed with stress test 3. Strict blood pressure and blood sugar control. Monitor hemodynamics closely 4. Anti-platelet therapy, anti coagulation, beta-danisha, statin, and O2 as needed 5. IV morphine for pain 6. Nitro p.r.n. 7. If chest pain continues and patient is hypoxic may consider V/Q scan in light of patient's renal dysfunction; however, V/Q scan cannot be done within 24 -48 hr of pharmacologic nuclear stress test. This may be considered as procedure if her chest pain is not resolved prior to discharge Discharge Plan: Home Plan to discharge in: 48 Hours - Advance Directives Does patient have a Living Will: No Does patient have a Durable POA for Healthcare: No - Code Status/Comfort Care Code Status Assessed: Yes Code Status: Full Code Critical Care: No Time Spent Managing PTS Care (In Minutes): 45
[2019-06-15] MEDS ORDERED: METOPROLOL TAR 50 MG TAB PO SCH (09:00)
[2019-06-15] MEDS ORDERED: INSULIN 70/30 100 UNITS/ML SQ SCH (09:00)
[2019-06-15] MEDS: ENOXAPARIN 40 MG/0.4 ML SQ SCH (09:00)
[2019-06-15] MEDS ORDERED: AMLODIPINE 10 MG TAB PO SCH (09:00)
--- NOTE | 2019-06-15 09:09 | RAD REPORT ---
EXAM DESCRIPTION: NM - Rest Stress Cardiac Imaging - 06/15/2019 8:50 am CLINICAL HISTORY: Chest pain COMPARISON: None. TECHNIQUE: The patient was administered 10.4 mCi of Tc 99m Sestamibi prior to resting SPECT imaging of the heart. The patient was then administered 31.9 mCi of Tc 99m Sestamibi following exercise or ph armacologic stress. Multiplanar SPECT images were reviewed. FINDINGS: The end diastolic volume is 74 ml, the end systolic volume is 26 ml, and the ejection frac tion is 65 %. No stress-induced ischemic changes are present. No measurable area of scarred myocardium. No suspicio us findings noted. IMPRESSION: No stress-induced ischemia. No scarring confirmed. Ventricular volumes and ejection fraction are normal range.
--- NOTE | 2019-06-15 09:37 | RAD REPORT ---
EXAM DESCRIPTION: RAD - Chest Single View - 06/15/2019 12:50 am CLINICAL HISTORY: Chest pain COMPARISON: June 09, 2019 TECHNIQUE: AP portable chest image was obtained 0044 hours . FINDINGS: Lung volumes are low. Interstitial and alveolar opacities are present in each lung base. T his is only partially due to atelectasis. Heart and vasculature are normal. Small bilateral pleural e ffusions are suspected. There is no pneumothorax. No acute bony abnormality seen. No acute aortic fin dings suspected. IMPRESSION: Shallow inspiration film shows bilateral lung base opacification and small pleural effus ions. This is partially due to atelectasis. Bilateral lung base edema or infiltrate are both possible. Significant failure or volume overload are doubtful in would not be expected in a patient this age.
[2019-06-15] MEDS: FERROUS SULFATE 325 MG TAB PO SCH (09:39)
[2019-06-15] MEDS: ASPIRIN EC 81 MG TAB PO SCH (09:40)
[2019-06-15] MEDS: CYANOCOBALAMIN 1,000 MCG TAB PO SCH (09:42)
--- NOTE | 2019-06-15 09:57 | TREADPHA ---
DX: CHEST PAIN Date of Study: 06/15/2019 Ht: 5 2 Wt: 150 lb 0.04 oz Consulting Physician: BOOKER MEDICATIONS: TYLENOL, XANAX, ASPIRIN, DEXTROSE, LOVENOX, LASIX, FEOSOL, LOPRESSOR HISTORY: HYPERTENSION, DIABETES, ANXIETY PHYSICIAL EXAMINATION: RESTING B.P.: 183/93 RESTING H.R.: 88 RESTING EKG: NORMAL PROTOCOL: PHARMACOLOGICAL EXERCISE TIME: 3:30 B.P. AT [place] STRESS: 136/71 IMPRESSION: LEXISCAN STRESS TEST PERFORMED PER PROTOCOL. CARDIOLITE INJECTED PER PROTOCOL. NO SUPRAVENTRICULAR TACHYCARDIA, NO VENTRICULAR TACHYCARDIA NOTED, REPORTS CHEST PAIN. TOLERATED WELL. NON-DIAGNOSTIC ELECTROCARDIOGRAM WITH LEXISCAN STRESS.
--- NOTE | 2019-06-15 10:23 | RAD REPORT ---
EXAM DESCRIPTION: RAD - Chest Pa And Lat (2 Views) - 06/15/2019 10:06 am CLINICAL HISTORY: FOllow up CHF Chest pain. COMPARISON: Chest Single View dated 06/15/2019; Chest Pa And Lat (2 Views) dated 06/09/2019; Chest Sin gle View dated 06/08/2019; Chest Single View dated 05/12/2016 FINDINGS: Mild improvement in lung aeration is seen since the comparative study. Mild interstitial p ulmonary edema versus interstitial pneumonitis persists. The heart is normal in size. No displaced fr actures. IMPRESSION: Mild improvement in lung aeration since earlier examination.
[2019-06-15] MEDS ORDERED: ONDANSETRON 4 MG/2 ML VIAL IV PRN (10:34)
--- NOTE | 2019-06-15 11:43 | P.DS ---
Admission Date: 06/15/19 Discharge Date: 06/15/19 Primary Care Provider: none; Nephrology-Dr. Paul Disposition: ROUTINE DISCHARGE Discharge Condition: GOOD Reason for Admission: CP r/o ACS Consultations: none Procedures: ECHO: EF 78% LEFT VENTRICULAR WALL MOTION: NORMAL DOPPLER/COLOR FLOW: NORMAL COMMENTS: NORMAL 2-DIMENSIONAL ECHOCARDIOGRAM WITH DOPPLER. NO WALL MOTION ABNORMALITY. NO EFFUSION. Liver US: FINDINGS: Liver is 14 cm. No focal liver parenchymal lesion. Capsule nodularity Doppler evaluation shows normal velocity, flow direction and waveform of the portal vein. No biliary tree dilatation the liver parenchyma. Right-side pleural effusion is present only partially imaged. Spleen is 9 cm. No focal splenic abnormality. IMPRESSION: No liver abnormality identified. CXR: COMPARISON: Chest Single View dated 06/15/2019; Chest Pa And Lat (2 Views) dated 06/09/2019; Chest Single View dated 06/08/2019; Chest Single View dated 05/12 FINDINGS: Mild improvement in lung aeration is seen since the comparative study. Mild interstitial pulmonary edema versus interstitial pneumonitis persists. The heart is normal in size. No displaced fractures. IMPRESSION: Mild improvement in lung aeration since earlier examination. Cardiac stress test: FINDINGS: The end diastolic volume is 74 ml, the end systolic volume is 26 ml, and the ejection fraction is 65 %. No stress-induced ischemic changes are present. No measurable area of scarred myocardium. No suspicious findings noted. IMPRESSION: No stress-induced ischemia. No scarring confirmed. Ventricular volumes and ejection fraction are normal range. Medical Problem List: Chest pain, shortness of breath with lower extremity edema secondary to acute on chronic diastolic CHF Chronic renal disease stage III Elevated liver function secondary to CHF Hypertension Diabetes mellitus type 2, insulin dependent Anemia of chronic disease with iron/B12 deficiency Brief History of Present Illness: 39-year-old female with multiple medical problems including diabetes, hypertension, chronic renal disease. She was recently hospitalized for hypertensive emergency. At hospitalization medications were adjusted. Patient was seen by nephrology at that time. Patient was discharged on metoprolol and Norvasc for Hypertension. Since that time she has reported increasing edema to the lower extremities, chest pain and shortness of breath. Patient was admitted for further evaluation and treatment. Hospital Course: Patient seen and evaluated for chest pain, shortness of breath with lower extremity edema. Initial chest x-ray showed some mild overload. Patient recently hospitalized for hypertensive emergency. At that time she was seen by nephrology and medications were adjusted. Patient was sent home on Metoprolol and Norvasc. Symptoms likely related to acute on chronic diastolic CHF. Previous echocardiogram done recently showed EF of 78%. Patient was given IV Lasix with improvement. Medications had been further adjusted. Norvasc has been discontinued. Lasix added. At discharge edema to the lower extremity improved. Patient without significant chest pain or shortness of breath. Cardiac enzymes unremarkable. At discharge will recommend to continue with metoprolol 100 mg 1 pill twice daily. Norvasc will be discontinued. Patient may continue with Lasix 40 mg daily. Patient will continue with a 1500 cc per day fluid restriction and low-salt diet. Recommend follow up with nephrology this week to recheck lab and follow up this hospitalization. Further adjustment in medication may be required. This can be done with the help of Nephrology. Patient with chronic renal disease stage III. This has remained stable. Recommend follow up with nephrology this week to follow up this hospitalization. Recommend to recheck lab-BMP within 1 week. Note changes in medication. Patient will no longer take Norvasc. Lasix has been added. Recommend no further use of nonsteroidal anti-inflammatories. Future medications will need to be renally dose. Patient with elevated liver function likely secondary to CHF. Previous hepatitis panel and HIV panel unremarkable. Recommend to recheck lab-CMP in 1- 2 weeks to monitor resolution. This should improve with control of CHF. Patient with hypertension. Medications have been adjusted as recommended above. At discharge she will no longer take Norvasc. Patient may continue with metoprolol 100 mg 1 pill twice daily. Recommend to maintain blood pressures less 150/80. Further adjustment can be done by nephrology. She is to keep a log of her blood pressures. Patient with diabetes mellitus type 2, insulin dependent. Blood sugars remained stable. At discharge she will continue with insulin 70/30 at 10 units subcu twice daily. Recommend to monitor blood sugars least twice daily. Recommend blood sugars less 140 fasting and less than 200 after meals. Further adjustment in her diabetic medication may be required for better blood sugar control. This can be further addressed by her PCP. Recommend to establish care and follow up with PCP in 1 week to further address. Patient with anemia of chronic disease with iron and B12 deficiency. Hemoglobin has remained stable. At discharge she will continue with iron 325 mg once daily and B12 1000 mcg daily. Recommend to recheck lab-CBC in 2-4 weeks to monitor progress. Vital Signs/Physical Exam: Temp Pulse Resp BP Pulse Ox 98.2 F 89 17 164/84 H 93 06/15/19 08:48 06/15/19 10:36 06/15/19 08:48 06/15/19 10:36 06/15/19 08:48 General: Alert, In no apparent distress, Oriented x3, Cooperative HEENT: Atraumatic Neck: Supple Respiratory: Clear to auscultation bilaterally, Normal air movement Cardiovascular: Normal pulses, Regular rate/rhythm Gastrointestinal: Normal bowel sounds, Soft and benign, Non-distended, No tenderness, No masses, No rebound, No guarding Musculoskeletal: No erythema, No tenderness, No warmth Integumentary: No tenderness/swelling, No erythema, No warmth, No cyanosis Neurological: Normal speech, Normal strength at 5/5 x4 extr, Normal tone, Normal affect Laboratory Data at Discharge: WBC 7.3 K/uL (4.3-10.9) D 06/15/19 00:40 Hgb 9.4 g/dL (12.0-15.0) L 06/15/19 00:40 Hct 29.0 % (36.0-45.0) L 06/15/19 00:40 Plt Count 169 K/uL (152-406) 06/15/19 00:40 PT 12.1 SECONDS (9.5-12.5) 06/15/19 00:40 INR 1.03 06/15/19 00:40 Sodium 140 mmol/L (136-145) 06/15/19 00:40 Potassium 4.9 mmol/L (3.5-5.1) 06/15/19 00:40 BUN 34 mg/dL (7-18) H 06/15/19 00:40 Creatinine 1.84 mg/dL (0.55-1.3) H 06/15/19 00:40 Glucose 185 mg/dL (74-106) H 06/15/19 00:40 Magnesium 2.4 mg/dL (1.8-2.4) 06/15/19 00:40 Total Bilirubin 0.2 mg/dL (0.2-1.0) 06/15/19 00:40 AST 56 U/L (15-37) H 06/15/19 00:40 ALT 115 U/L (12-78) H 06/15/19 00:40 Alkaline Phosphatase 156 U/L (45-117) H 06/15/19 00:40 Home Medications: Cyanocobalamin (Vitamin B-12) [Vitamin B-12] 1,000 mcg PO DAILY #90 tablet 06/10 Ferrous Sulfate [Iron] 325 mg PO DAILY #90 tablet 06/10/19 Metoprolol Tartrate 100 mg PO BID #60 tablet 06/10/19 Furosemide [Lasix*] 40 mg PO DAILY #30 tab 06/15/19 Insulin NPH Hum/Reg Insulin Hm [Novolin 70-30 100 Unit/ml Vial] 10 unit SQ BID 06/15/19 New Medications: Furosemide [Lasix*] 40 mg PO DAILY #30 tab Patient Discharge Instructions: 1. Patient needs to follow up with nephrology this week. Please provide contact information to Dr. Paul. 2. Patient seen and evaluated for chest pain, shortness of breath with lower extremity edema. Initial chest x-ray showed some mild overload. Patient recently hospitalized for hypertensive emergency. At that time she was seen by nephrology and medications were adjusted. Patient was sent home on Metoprolol and Norvasc. Symptoms likely related to acute on chronic diastolic CHF. Previous echocardiogram done recently showed EF of 78%. Patient was given IV Lasix with improvement. Medications had been further adjusted. Norvasc has been discontinued. Lasix added. At discharge edema to the lower extremity improved. Patient without significant chest pain or shortness of breath. Cardiac enzymes unremarkable. At discharge will recommend to continue with metoprolol 100 mg 1 pill twice daily. Norvasc will be discontinued. Patient may continue with Lasix 40 mg daily. Patient will continue with a 1500 cc per day fluid restriction and low-salt diet. Recommend follow up with nephrology this week to recheck lab and follow up this hospitalization. Further adjustment in medication may be required. This can be done with the help of Nephrology. 3. Patient with chronic renal disease stage III. This has remained stable. Recommend follow up with nephrology this week to follow up this hospitalization. Recommend to recheck lab-BMP within 1 week. Note changes in medication. Patient will no longer take Norvasc. Lasix has been added. Recommend no further use of nonsteroidal anti-inflammatories. Future medications will need to be renally dose. 4. Patient with elevated liver function likely secondary to CHF. Previous hepatitis panel and HIV panel unremarkable. Recommend to recheck lab-CMP in 1-2 weeks to monitor resolution. This should improve with control of CHF. 5. Patient with hypertension. Medications have been adjusted as recommended above. At discharge she will no longer take Norvasc. Patient may continue with metoprolol 100 mg 1 pill twice daily. Recommend to maintain blood pressures less 150/80. Further adjustment can be done by nephrology. She is to keep a log of her blood pressures. 6. Patient with diabetes mellitus type 2, insulin dependent. Blood sugars remained stable. At discharge she will continue with insulin 70/30 at 10 units subcu twice daily. Recommend to monitor blood sugars least twice daily. Recommend blood sugars less 140 fasting and less than 200 after meals. Further adjustment in her diabetic medication may be required for better blood sugar control. This can be further addressed by her PCP. Recommend to establish care and follow up with PCP in 1 week to further address. 7. Patient with anemia of chronic disease with iron and B12 deficiency. Hemoglobin has remained stable. At discharge she will continue with iron 325 mg once daily and B12 1000 mcg daily. Recommend to recheck lab-CBC in 2-4 weeks to monitor progress. Diet: Renal Activity: Fall precautions Time spent managing pt's care (in minutes): 55
[2019-06-15] MEDS ORDERED: FUROSEMIDE 20 MG/ 2ML VIAL IV ONE (12:47)
[2019-06-15] MEDS: INSULIN -REGULAR HUMAN 50 UNIT/0.5 ML ML SQ SCH ×3 (13:17→21:00)
[2019-06-15] MEDS ORDERED: INSULIN GLARGINE 100 UNITS/ML SQ SCH (21:00)
[2019-06-15] MEDS: METOPROLOL TAR 50 MG TAB PO SCH (21:15)
[2019-06-16] MEDS: INSULIN -REGULAR HUMAN 50 UNIT/0.5 ML ML SQ SCH ×2 (07:30→12:12)
[2019-06-16] MEDS: ASPIRIN EC 81 MG TAB PO SCH (08:54)
[2019-06-16] MEDS: ENOXAPARIN 40 MG/0.4 ML SQ SCH (08:57)
[2019-06-16] MEDS: METOPROLOL TAR 50 MG TAB PO SCH (08:57)
--- NOTE | 2019-06-16 08:57 | RAD REPORT ---
EXAM DESCRIPTION: RAD - Chest Pa And Lat (2 Views) - 06/16/2019 8:47 am CLINICAL HISTORY: follow up chf Chest pain. COMPARISON: Chest Pa And Lat (2 Views) dated 06/15/2019; Chest Single View dated 06/15/2019; Chest Pa And Lat (2 Views) dated 06/09/2019; Chest Single View dated 06/08/2019 FINDINGS: Linear subsegmental atelectasis is present in the left lung base. Small bilateral pleural effusions are noted. Mild interstitial pulmonary edema appears mildly improved since comparative stud y. The heart is mildly prominent in size.
[2019-06-16] MEDS: FERROUS SULFATE 325 MG TAB PO SCH (08:58)
[2019-06-16] MEDS: CYANOCOBALAMIN 1,000 MCG TAB PO SCH (08:58)
[2019-06-16] MEDS ORDERED: FUROSEMIDE 20 MG/ 2ML VIAL IV SCH (09:00)
[2019-06-16] MEDS ORDERED: FUROSEMIDE 40 MG TABLET PO SCH (09:00)
[2019-06-16 12:19] VITALS: O2SAT 92
[2019-06-16 14:41] VITALS: BP 128/75; TEMP 97.6
== END 2019-06-16 13:18 | disposition home or self-care (01) ==
LOC: ER 23:57 → ERHOLD 06-15 02:34 → 2ND 06-15 08:04
PROVIDERS: ADMIT Hospitalist; ATTEND Hospitalist
DX: I13.0 Hypertensive heart and chronic kidney disease with heart failure and stage 1 through stage 4 chronic kidney disease, or unspecified chronic kidney disease (principal); I50.33 Acute on chronic diastolic (congestive) heart failure; N18.3 Chronic kidney disease, stage 3 (moderate); E11.22 Type 2 diabetes mellitus with diabetic chronic kidney disease; D63.1 Anemia in chronic kidney disease; E11.40 Type 2 diabetes mellitus with diabetic neuropathy, unspecified
CPT/HCPCS: 36415; 71045; 71046; 76705; 78452; 80048; 80061; 80076; 82962; 83735; 83880; 84484; 85025; 85610; 93005; 93017; 96374; 96375; 99285; A9500; G0378; J1650; J1940; J2405; J2785

== ENCOUNTER 2019-08-20 18:00 | Observation (INO) | payer SELFPAY ==
[2019-08-20] MEDS ORDERED: ACETAMINOPHEN 500 MG TAB ONE (19:39)
[2019-08-20] MEDS ORDERED: NA CHLORIDE 0.9% 1,000 ML ONE (19:39)
--- NOTE | 2019-08-20 20:25 | RAD REPORT ---
EXAM DESCRIPTION: RAD - Chest Pa And Lat (2 Views) - 08/20/2019 8:14 pm CLINICAL HISTORY: fever, cough Chest pain. COMPARISON: <Comparisons> FINDINGS: The lungs are clear. The heart is normal in size. No displaced fractures. IMPRESSION: No acute or concerning finding suspected.
[2019-08-20 20:35] LABS: Absolute Lymphocytes (CBC) 1.7 K/uL (0.7-4.9); Basophils % 1.1 % (0-1.3); Hematocrit 35.9 % (36.0-45.0); Lymphocytes % 16.8 % (15.3-44.8); RBC Red Blood Cell Count 4.07 M/uL (3.86-4.86)
[2019-08-20 20:54] LABS: Albumin 3.5 g/dL (3.4-5.0); Bilirubin Total 0.3 mg/dL (0.2-1.0); Potassium 5.2 mmol/L (3.5-5.1); Protein, Total 7.1 g/dL (6.4-8.2)
[2019-08-20] MEDS ORDERED: SOD POLYSTYREN SUL 15 GM/60 ML UCUP ONE (21:37)
[2019-08-20] MEDS ORDERED: METOPROLOL TAR 50 MG TAB ONE (21:49)
--- NOTE | 2019-08-20 21:53 | ER ---
Nurse's Notes [facility] Name: Mercedes Marin Age: 39 yrs Sex: Female : 1980 Arrival Date: 08/20/2019 Time: 18:01 Bed 23 Private MD: Diagnosis: Acute Kidney Injury;Dehydation;Hyperkalemia Presentation: 08/20 18:03 Presenting complaint: Headache, subjective fever, diarrhea, decreased appetite, sinus hb congestion, cough x 1 week. Transition of care: patient was not received from another setting of care. Onset of symptoms was August 13, 2019. Risk Assessment: Do you want to hurt yourself or someone else? Patient reports no desire to harm self or others. Care prior to arrival: None. 18:03 Method Of Arrival: Ambulatory hb 18:03 Acuity: ALONDRA 4 hb 20:21 Initial Sepsis Screen: Does the patient meet any 2 criteria? No. Patient's initial mg2 sepsis screen is negative. Does the patient have a suspected source of infection? No. Patient's initial sepsis screen is negative. Triage Assessment: 20:21 Headache History: The patient has had previous headaches. General: Appears in no mg2 apparent distress. comfortable, Behavior is calm, cooperative. Pain: Also complains of no other associated symptoms. COAL SAMPLE TESTER: 20:22 LMP unknown mg2 Historical: - Allergies: 18:06 No Known Allergies; hb - Home Meds: 18:06 lisinopril-hydrochlorothiazide 10-12.5 mg Oral tab 1 tab once daily [Active]; Novolin hb 70/30 [place] Sub-Q [Active]; - PMHx: 18:06 Hypertension; Diabetes - IDDM; hb - PSHx: 18:06 Cholecystectomy; pancreas surg; hb - Immunization history:: Adult Immunizations up to date. - Social history:: Smoking status: Patient/guardian denies using tobacco. - Ebola Screening: : No symptoms or risks identified at this time. Screenin:20 Abuse screen: Denies threats or abuse. Denies injuries from another. Nutritional mg2 screening: No deficits noted. Tuberculosis screening: No symptoms or risk factors identified. Fall Risk IV access (20 points). Assessment: 20:19 General: Appears in no apparent distress. comfortable, Behavior is calm, cooperative. mg2 Pain: Complains of pain in head Pain does not radiate. Pain currently is 5 out of 10 on a pain scale. Quality of pain is described as aching, Pain began gradually. Neuro: Level of Consciousness is awake, alert, obeys commands, Oriented to person, place, time, situation. Neuro: Reports headache frontal area. Cardiovascular: Capillary refill < 3 seconds Patient's skin is warm and dry. Respiratory: Airway is patent Respiratory effort is even, unlabored, Respiratory pattern is regular, symmetrical. GI: No signs and/or symptoms were reported involving the gastrointestinal system. : No signs and/or symptoms were reported regarding the genitourinary system. EENT: No signs and/or symptoms were reported regarding the EENT system. Derm: Skin is intact, is healthy with good turgor, Skin is pink, warm \T\ dry. normal. Musculoskeletal: Circulation, motion, and sensation intact. Capillary refill < 3 seconds. 21:28 Reassessment: Patient appears in no apparent distress at this time. Patient is alert, mg2 oriented x 3, equal unlabored respirations, skin warm/dry/pink. 22:33 Reassessment: patient informed about the plan for hospitalization and she agreed. mg2 22:53 Reassessment: patient has a room already but pressure is still high. I tommy Galvez mg2 and he ordered to give medications. Vital Signs: 18:05 BP 171 / 98; Pulse 101; Resp 20; Temp 97.7; Pulse Ox 97% on R/A; Weight 61.23 kg; hb Height 5 ft. 3 in. (160.02 cm); Pain 8/10; 21:28 BP 194 / 99; Pulse 83; Resp 18; Pulse Ox 100% on R/A; mg2 22:19 BP 205 / 104; Pulse 85; Resp 18; Pulse Ox 100% on R/A; mg2 22:54 BP 201 / 106; Pulse 84; Resp 18; Pulse Ox 100% on R/A; mg2 23:00 BP 154 / 77; Pulse 85; Resp 18; Pulse Ox 100% on R/A; mg2 23:04 BP 161 / 78; Pulse 86; Resp 18; Temp 98.9(O); Pulse Ox 100% on R/A; mg2 18:05 Body Mass Index 23.91 (61.23 kg, 160.02 cm) ED Course: 18:01 Patient arrived in ED. as 18:04 Triage completed. hb 18:05 Arm band placed on. hb 19:03 Jong Camarena PA is PHCP. m 19:03 Washington Shaffer MD is Attending Physician. jmm 19:37 Jc Cervantes, WALDEMAR is Primary Nurse. mg2 20:14 Chest Pa And Lat (2 Views) XRAY In Process Unspecified. EDMS 20:20 No provider procedures requiring assistance completed. Inserted saline lock: 22 gauge mg2 in right forearm, using aseptic technique. by WALDEMAR saleh. 20:21 Patient has correct armband on for positive identification. Pulse ox on. NIBP on. Door mg2 closed. Warm blanket given. 21:51 Pascual Galvez MD is Hospitalizing Provider. m 22:33 Patient admitted, IV remains in place. mg2 Administered Medications: 19:56 Drug: Tylenol 1000 mg Route: PO; mg2 21:32 Follow up: Response: No adverse reaction mg2 20:18 Drug: NS 0.9% 1000 ml Route: IV; Rate: 1 bolus; Site: right forearm; mg2 23:17 Follow up: Response: No adverse reaction; IV Status: Completed infusion; IV Intake: mg2 1000ml 21:54 Drug: Kayexalate 30 grams Route: PO; mg2 23:16 Follow up: Response: No adverse reaction mg2 21:55 Drug: Metoprolol 100 mg Route: PO; mg2 23:16 Follow up: Response: No adverse reaction; Blood pressure is lowered mg2 22:52 Drug: hydrALAZINE 10 mg Route: IV; Rate: calculated rate; Site: right forearm; mg2 23:16 Follow up: Response: No adverse reaction; IV Status: Completed infusion mg2 22:53 Drug: Catapres 0.2 mg Route: PO; mg2 23:16 Follow up: Response: No adverse reaction; Blood pressure is lowered mg2 Intake: 23:17 IV: 1000ml; Total: 1000ml. mg2 Outcome: 21:52 Decision to Hospitalize by Provider. jmm 23:14 Admitted to Med/surg accompanied by tech, via wheelchair, room 205, with chart, Report mg2 called to WALDEMAR Kiran 23:14 Condition: stable 23:14 Instructed on the need for admit, Demonstrated understanding of instructions. 23:47 Patient left the ED. mg2 Signatures: Dispatcher [employer] EDMS Jong Camarena PA PA jmm Martinez, Amelia as Griselda Shields, WALDEMAR RN hb Jc Cervantes RN RN mg2 Corrections: (The following items were deleted from the chart) 23:14 23:04 BP 161 / 78; Pulse 86bpm; Resp 18bpm; Pulse Ox 100% RA; mg2 mg2
--- NOTE | 2019-08-20 21:53 | EDPHYS ---
Physician Documentation [facility] Name: Mercedes Marin Age: 39 yrs Sex: Female : 1980 Arrival Date: 08/20/2019 Time: 18:01 Bed 23 Private MD: ED Physician Washington Shaffer HPI: 08/20 18:05 This 39 yrs old Female presents to ER via Ambulatory with complaints of jmm Headache, Fever, Decreased Appetite. 18:05 The patient complains of pain to the forehead. Onset: The symptoms/episode jmm began/occurred gradually, 6 day(s) ago. Associated signs and symptoms: Pertinent positives: fever, sinus congestion, cough. The patient has experienced similar episodes in the past. This is a 39 year old female with a history of htn, dm that presents to the ED with complaints of frontal headache beginning 3 days ago. With cough, congestion beginning 3 days ago. Also complains of vomiting and diarrhea. . [employer]: 20:22 LMP unknown mg2 Historical: - Allergies: 18:06 No Known Allergies; hb - Home Meds: 18:06 lisinopril-hydrochlorothiazide 10-12.5 mg Oral tab 1 tab once daily [Active]; Novolin hb 70/30 [place] Sub-Q [Active]; - PMHx: 18:06 Hypertension; Diabetes - IDDM; hb - PSHx: 18:06 Cholecystectomy; pancreas surg; hb - Immunization history:: Adult Immunizations up to date. - Social history:: Smoking status: Patient/guardian denies using tobacco. - Ebola Screening: : No symptoms or risks identified at this time. ROS: 18:05 Constitutional: Positive for body aches, chills. jmm 18:05 Respiratory: Positive for cough. 18:05 Abdomen/GI: Positive for vomiting, diarrhea. 18:05 Neuro: Positive for headache. 18:05 All other systems are negative. Exam: 18:05 Head/Face: atraumatic. Eyes: EOMI, no conjunctival erythema appreciated ENT: Moist jmm Mucus Membranes Neck: Trachea midline, Supple Chest/axilla: Normal chest wall appearance and motion. 18:05 Cardiovascular: Regular rate and rhythm. No edema appreciated Respiratory: Normal respirations, no respiratory distress appreciated Abdomen/GI: Non distended, soft Back: Normal ROM Skin: General appearance color normal MS/ Extremity: Moves all extremities, no obvious deformities appreciated, no edema noted to the lower extremities Neuro: Awake and alert, normal gait Psych: Behavior is normal, Mood is normal, Patient is cooperative and pleasant 18:05 Constitutional: The patient appears alert, awake, uncomfortable. 18:05 Cardiovascular: Rate: normal, Rhythm: regular. 18:05 Respiratory: the patient does not display signs of respiratory distress, Respirations: normal, Breath sounds: are clear throughout. Vital Signs: 18:05 BP 171 / 98; Pulse 101; Resp 20; Temp 97.7; Pulse Ox 97% on R/A; Weight 61.23 kg; hb Height 5 ft. 3 in. (160.02 cm); Pain 8/10; 21:28 BP 194 / 99; Pulse 83; Resp 18; Pulse Ox 100% on R/A; mg2 22:19 BP 205 / 104; Pulse 85; Resp 18; Pulse Ox 100% on R/A; mg2 22:54 BP 201 / 106; Pulse 84; Resp 18; Pulse Ox 100% on R/A; mg2 23:00 BP 154 / 77; Pulse 85; Resp 18; Pulse Ox 100% on R/A; mg2 23:04 BP 161 / 78; Pulse 86; Resp 18; Temp 98.9(O); Pulse Ox 100% on R/A; mg2 18:05 Body Mass Index 23.91 (61.23 kg, 160.02 cm) hb MDM: 19:18 Patient medically screened. [facility] 21:48 Data reviewed: vital signs, nurses notes. Counseling: I had a detailed discussion with barbara the patient and/or guardian regarding: the historical points, exam findings, and any diagnostic results supporting the discharge/admit diagnosis, lab results, the need for further work-up and treatment in the hospital. ED course: I discussed the patient with Dr. Galvez whom accepted admission. . 08/20 18:05 Order name: Flu; Complete Time: 19:16 08/20 18:05 Order name: Strep; Complete Time: 19:16 08/20 18:43 Order name: Throat Culture [facility] 08/20 19:31 Order name: CBC with Diff; Complete Time: 20:43 [facility] 08/20 19:31 Order name: CMP; Complete Time: 21:24 [facility] 08/20 19:31 Order name: Lactate; Complete Time: 21:15 [facility] 08/20 19:33 Order name: Lewis Screen Profile; Complete Time: 21:24 [facility] 08/20 19:33 Order name: Chest Pa And Lat (2 Views) XRAY; Complete Time: 20:31 [facility] 08/20 22:02 Order name: CBC with Automated Diff EDMS 08/20 22:02 Order name: CBC with Automated Diff EDMS 08/20 22:02 Order name: Comprehensive Metabolic Panel EDSC 08/20 22:02 Order name: Comprehensive Metabolic Panel [facility]SC 08/20 22:02 Order name: Urinalysis W/Microscopic EDMS 08/20 19:31 Order name: Saline Lock; Complete Time: 20:18 [facility] 08/20 21:31 Order name: EKG - Nurse/Tech; Complete Time: 21:54 [facility] 08/20 22:02 Order name: CONS Pharmacy Consult EDSC 08/20 22:02 Order name: Regular EDMS Administered Medications: 19:56 Drug: Tylenol 1000 mg Route: PO; mg2 21:32 Follow up: Response: No adverse reaction mg2 20:18 Drug: NS 0.9% 1000 ml Route: IV; Rate: 1 bolus; Site: right forearm; mg2 23:17 Follow up: Response: No adverse reaction; IV Status: Completed infusion; IV Intake: mg2 1000ml 21:54 Drug: Kayexalate 30 grams Route: PO; mg2 23:16 Follow up: Response: No adverse reaction mg2 21:55 Drug: Metoprolol 100 mg Route: PO; mg2 23:16 Follow up: Response: No adverse reaction; Blood pressure is lowered mg2 22:52 Drug: hydrALAZINE 10 mg Route: IV; Rate: calculated rate; Site: right forearm; mg2 23:16 Follow up: Response: No adverse reaction; IV Status: Completed infusion mg2 22:53 Drug: Catapres 0.2 mg Route: PO; mg2 23:16 Follow up: Response: No adverse reaction; Blood pressure is lowered mg2 Disposition: 08/21 06:51 Co-signature as Attending Physician, Washington Shaffer MD I agree with the assessment and kdr plan of care. Disposition: 08/20/19 21:52 Hospitalization ordered by Pascual Galvez for Observation. Preliminary diagnosis are Acute Kidney Injury, Dehydation, Hyperkalemia. - Bed requested for Telemetry/MedSurg (observation). - Status is Observation. mg2 - Condition is Stable. - Problem is new. - Symptoms are unchanged. UTI on Admission? No Signatures: Dispatcher [employer] EDWashington Loo MD MD kdr Mickail, Joel, PA PA [facility] Cyn Morales RN RN tl1 Griselda Shields RN RN Jc Cervantes RN RN mg2 Corrections: (The following items were deleted from the chart) 08/20 22:06 21:52 Hospitalization Ordered by Pascual Galvez MD for Observation. Preliminary tl1 diagnosis is Acute Kidney Injury; Dehydation; Hyperkalemia. Bed requested for Telemetry/MedSurg (observation). Status is Observation. Condition is Stable. Problem is new. Symptoms are unchanged. UTI on Admission? No. [facility] 23:47 22:06 08/20/2019 21:52 Hospitalization Ordered by Pascual Galvez MD for Observation. mg2 Preliminary diagnosis is Acute Kidney Injury; Dehydation; Hyperkalemia. Bed requested for Telemetry/MedSurg (observation). Status is Observation. Condition is Stable. Problem is new. Symptoms are unchanged. UTI on Admission? No. tl1
[2019-08-20] MEDS ORDERED: ONDANSETRON 4 MG/2 ML VIAL IV PRN (21:58)
[2019-08-20] MEDS ORDERED: MORPHINE 2 MG/ML SYR IV PRN (21:58)
[2019-08-20] MEDS ORDERED: ACETAMINOPHEN 500 MG TAB PO PRN (21:58)
[2019-08-20] MEDS ORDERED: cloNIDine HCl 0.1 MG TAB ONE (22:43)
[2019-08-20] MEDS ORDERED: HYDRALAZINE HCL 20 MG/ML VIAL ONE (22:43)
[2019-08-20] MEDS ORDERED: METOPROLOL TAR 50 MG TAB PO ONE (23:30)
[2019-08-20 23:58] VITALS: BMI 26.2
[2019-08-21] MEDS: D5 0.45 NS 1,000 ML IV SCH ×3 (00:11→08:18)
[2019-08-21 00:48] LABS: Urine Appearance CLOUDY; Urine Bilirubin NEGATIVE (NEG); Urine Blood TRACE (NEG); Urine Color YELLOW; Urine Glucose NEGATIVE (NEG); Urine Protein 3+ (NEG); Urine Urobilinogen 0.2 mg/dL (0.2-1.0)
[2019-08-21 02:03] LABS: Urine Bacteria LOADED /HPF (<20); Urine Culture Reflex Order REFLEXED; Urine RBC <5 /HPF (NONE SEEN)
[2019-08-21] MEDS ORDERED: METOPROLOL TAR 25 MG TAB PO SCH (06:00)
[2019-08-21 06:19] LABS: Absolute Lymphocytes (CBC) 1.5 K/uL (0.7-4.9); Basophils % 1.5 % (0-1.3); Hematocrit 29.5 % (36.0-45.0); Lymphocytes % 23.3 % (15.3-44.8); MPV 10.1 fL (7.6-11.3); RBC Red Blood Cell Count 3.37 M/uL (3.86-4.86)
[2019-08-21 06:38] LABS: Albumin 2.7 g/dL (3.4-5.0); Bilirubin Total 0.3 mg/dL (0.2-1.0); Protein, Total 5.6 g/dL (6.4-8.2)
--- NOTE | 2019-08-21 07:22 | EKG ---
Test Date: 2019-08-20 Test Time: 21:51:17 Laboratory Helper: MG MEASUREMENT RESULTS: Intervals: Rate: 83 SC: 148 QRSD: 64 QT: 376 QTc: 441 [place]: P: 71 SC: 148 QRS: -20 T: 76 INTERPRETIVE STATEMENTS: Normal sinus rhythm Cannot rule out Anterior infarct, age undetermined Abnormal ECG Compared to ECG 06/15/2019 00:11:05 Myocardial infarct finding now present Electronically Signed On 08-21-19 07:21:49 CDT by Marquez Walter
[2019-08-21] MEDS ORDERED: predniSONE 20 MG TAB PO ONE (07:45)
[2019-08-21] MEDS ORDERED: AMOX/K CLAV 500 MG TAB PO SCH (09:00)
[2019-08-21] MEDS ORDERED: FLUTICASONE 50MCG NASAL SPRAY NAS SCH (09:00)
[2019-08-21] MEDS ORDERED: LOSARTAN/HCTZ 50-12.5 PO SCH (09:00)
[2019-08-21] MEDS ORDERED: GLUCAGON 1 MG/VIAL IM PRN (09:03)
[2019-08-21] MEDS ORDERED: D50W 25 GM/50 ML SYRINGE/VIAL IV PRN (09:03)
--- NOTE | 2019-08-21 09:07 | P.DS ---
Admission Date: 08/20/19 Discharge Date: 08/21/19 Primary Care Provider: Fredy Khan NP Disposition: ROUTINE DISCHARGE Discharge Condition: GOOD Reason for Admission: Dehydration Consultations: none Procedures: CXR: Unremarkable. Medical Problem List: Dehydration likely related to acute on chronic sinusitis Acute on chronic renal disease stage III with hyperkalemia Hypertension Diabetes mellitus type 2 insulin-dependent with hyperglycemia Anemia of chronic disease with iron/B12 deficiency Brief History of Present Illness: 39-year-old female presented to the emergency room with headache and sinus pressure. The patient was evaluated in the emergency room. She has found to have elevated potassium. Patient with underlying history of diabetes, hypertension and chronic renal disease. The patient appeared dehydrated as well. Patient was admitted for further evaluation and treatment. Hospital Course: Patient presented with dehydration, hyperkalemia and acute on chronic sinusitis. Patient with underlying chronic renal disease stage III, hypertension, diabetes mellitus type 2 insulin dependent and anemia of chronic disease with iron/B12 deficiency. The patient was admitted for hydration. Patient responded well. Chest x-ray unremarkable. At discharge she will continue with Flonase 1 spray per nostril twice daily and Augmentin 500 mg twice daily for 7 days. Renal function remained stable near baseline. Recommend to recheck lab-BMP within 1-2 weeks. Potassium level within normal range. Patient with acute on chronic renal disease stage III with hyperkalemia. Patient was hydrated. Repeat lab showed improvement. Potassium level now within normal range. At discharge she will continue with her current medications. Recommend follow up with nephrology in 1-2 weeks to monitor her progress. Recommend to recheck lab-BMP in 1-2 weeks. Recommend no use of nonsteroidal anti-inflammatories. Future medications will need to be renally dosed. Patient with hypertension. At discharge she will continue with metoprolol 100 mg 1 pill twice daily. Recommend to maintain blood pressures less 150/80. Further adjustment can be done by her PCP. Patient with diabetes mellitus type 2 insulin dependent. Hyperglycemia was noted. At discharge she will continue with her insulin 70/30 10 units twice daily. Recommend to monitor blood sugars at least twice daily. Recommend to maintain blood sugars less than 140 fasting and less than 200 after meals. Further adjustment may be required. This can be done with the help of her PCP. Patient with anemia of chronic disease with noted iron and B12 deficiency. At discharge she will continue with her iron supplementation along with B12 supplementation daily. Recommend to recheck lab-CBC in 4-6 weeks. Vital Signs/Physical Exam: Temp Pulse Resp BP Pulse Ox 98.3 F 82 18 179/86 H 100 08/21/19 08:00 08/21/19 08:16 08/21/19 08:00 08/21/19 08:16 08/21/19 08:00 General: Alert, In no apparent distress, Oriented x3, Cooperative HEENT: Atraumatic, Mucous membr. moist/pink, Other (Mild sinus pressure noted to the maxillary area and frontal area) Neck: Supple Respiratory: Clear to auscultation bilaterally, Normal air movement Cardiovascular: Normal pulses, Regular rate/rhythm Gastrointestinal: Normal bowel sounds, Soft and benign, Non-distended, No tenderness, No masses, No rebound, No guarding Musculoskeletal: No erythema, No tenderness, No warmth Integumentary: No tenderness/swelling, No erythema, No warmth, No cyanosis Neurological: Normal speech, Normal strength at 5/5 x4 extr, Normal tone, Normal affect Lymphatics: No axilla or inguinal lymphadenopathy Laboratory Data at Discharge: WBC 6.4 K/uL (4.3-10.9) D 08/21/19 05:51 Hgb 9.9 g/dL (12.0-15.0) L 08/21/19 05:51 Hct 29.5 % (36.0-45.0) L D 08/21/19 05:51 Plt Count 173 K/uL (152-406) D 08/21/19 05:51 Sodium 139 mmol/L (136-145) 08/21/19 05:51 Potassium 5.0 mmol/L (3.5-5.1) 08/21/19 05:51 BUN 21 mg/dL (7-18) H 08/21/19 05:51 Creatinine 1.76 mg/dL (0.55-1.3) H 08/21/19 05:51 Glucose 294 mg/dL (74-106) H 08/21/19 05:51 Total Bilirubin 0.3 mg/dL (0.2-1.0) 08/21/19 05:51 AST 12 U/L (15-37) L 08/21/19 05:51 ALT 12 U/L (12-78) 08/21/19 05:51 Alkaline Phosphatase 67 U/L (45-117) 08/21/19 05:51 Home Medications: Cyanocobalamin (Vitamin B-12) [Vitamin B-12] 1,000 mcg PO DAILY #90 tablet 06/10 Ferrous Sulfate [Iron] 325 mg PO DAILY #90 tablet 06/10/19 Metoprolol Tartrate 100 mg PO BID #60 tablet 06/10/19 Insulin NPH Hum/Reg Insulin Hm [Novolin 70-30 100 Unit/ml Vial] 10 unit SQ BID 06/15/19 Fluticasone [Flonase 50MCG Nasal [place]*] 1 sprays JAS BID #1 btl 08/21/19 New Medications: Fluticasone [Flonase 50MCG Nasal [place]*] 1 sprays JAS BID #1 btl Patient Discharge Instructions: 1. Follow up with PCP within 1 week to follow up this hospitalization. 2. Patient presented with dehydration, hyperkalemia and acute on chronic sinusitis. Patient with underlying chronic renal disease stage III, hypertension, diabetes mellitus type 2 insulin dependent and anemia of chronic disease with iron/B12 deficiency. The patient was admitted for hydration. Patient responded well. Chest x-ray unremarkable. At discharge she will continue with Flonase 1 spray per nostril twice daily and Augmentin 500 mg twice daily for 7 days. Renal function remained stable near baseline. Recommend to recheck lab-BMP within 1-2 weeks. Potassium level within normal range. 3. Patient with acute on chronic renal disease stage III with hyperkalemia. Patient was hydrated. Repeat lab showed improvement. Potassium level now within normal range. At discharge she will continue with her current medications. Recommend follow up with nephrology in 1-2 weeks to monitor her progress. Recommend to recheck lab-BMP in 1-2 weeks. Recommend no use of nonsteroidal anti-inflammatories. Future medications will need to be renally dosed. 4. Patient with hypertension. At discharge she will continue with metoprolol 100 mg 1 pill twice daily. Recommend to maintain blood pressures less 150/80. Further adjustment can be done by her PCP. 5. Patient with diabetes mellitus type 2 insulin dependent. Hyperglycemia was noted. At discharge she will continue with her insulin 70/30 10 units twice daily. Recommend to monitor blood sugars at least twice daily. Recommend to maintain blood sugars less than 140 fasting and less than 200 after meals. Further adjustment may be required. This can be done with the help of her PCP. 6. Patient with anemia of chronic disease with noted iron and B12 deficiency. At discharge she will continue with her iron supplementation along with B12 supplementation daily. Recommend to recheck lab-CBC in 4-6 weeks. Diet: ADA Activity: Ad shena Time spent managing pt's care (in minutes): 55
--- NOTE | 2019-08-21 10:52 | P.HP ---
Certification for Inpatient Patient admitted to: Observation With expected LOS: <2 Midnights Patient will require the following post-hospital care: None Practitioner: I am a practitioner with admitting privileges, knowledge of patient current condition, hospital course, and medical plan of care. Services: Services provided to patient in accordance with Admission requirements found in Title 42 Section 412.3 of the Code of Federal Regulations Patient History Date of Service: 08/20/19 Reason for admission: Dehydration History of Present Illness: PATIENT IS A 39-YEAR-OLD FEMALE WHO CAME TO THE HOSPITAL WITH NAUSEA AND VOMITING ALONG WITH SOME DIARRHEA. PATIENT ALSO HAS BEEN HAVING A HEADACHE. PATIENT HAS BEEN FEELING BAD FOR THE LAST COUPLE OF DAYS AND HAS HAD SOME FEVERS WELL. PATIENT CAME INTO THE HOSPITAL FOR FURTHER EVALUATION. PATIENT 'S BLOOD PRESSURE HAS BEEN LABILE. SHE ALSO HAS SOME CHRONIC RENAL INSUFFICIENCY. SHE WILL BE ADMITTED FOR HYDRATION AND WILL REASSESS IN THE NEXT 24 HOURS. Allergies No Known Allergies Allergy (Verified 08/21/19 00:16) Home Medications: Cyanocobalamin (Vitamin B-12) [Vitamin B-12] 1,000 mcg PO DAILY #90 tablet 06/10 Ferrous Sulfate [Iron] 325 mg PO DAILY #90 tablet 06/10/19 Metoprolol Tartrate 100 mg PO BID #60 tablet 06/10/19 Insulin NPH Hum/Reg Insulin Hm [Novolin 70-30 100 Unit/ml Vial] 10 unit SQ BID 06/15/19 Cefdinir [Omnicef] 300 mg PO BID #14 capsule 08/21/19 Fluticasone [Flonase 50MCG Nasal [place]*] 1 sprays JAS BID #1 btl 08/21/19 - Past Medical/Surgical History Has patient received pneumonia vaccine in the past: No Diabetic: Yes -: Diabetes -: Hypertension -: Chronic kidney disease -: Diabetic nephropathy -: Pancreatic pseudocystectomy -: Appendectomy - Family History Mother Medical History: Heart disease, Diabetes - Social History Smoking Status: Never smoker Alcohol use: No CD- Drugs: No Caffeine use: No Place of Residence: Home Review of Systems 10-point ROS is otherwise unremarkable Physical Examination - Vital Signs Temperature: 98.3 F Blood Pressure: 179/86 Pulse: 82 Respirations: 18 Pulse Ox (%): 100 - Physical Exam General: Alert, In no apparent distress, Oriented x3 HEENT: Atraumatic, PERRLA, Mucous membr. moist/pink, EOMI, Sclerae nonicteric Neck: Supple, 2+ carotid pulse no bruit, No LAD, Without JVD or thyroid abnormality Respiratory: Clear to auscultation bilaterally, Normal air movement Cardiovascular: Regular rate/rhythm, Normal S1 S2, No murmurs Gastrointestinal: Normal bowel sounds, Soft and benign, Non-distended, No tenderness Musculoskeletal: No clubbing, No swelling, No tenderness Integumentary: No rashes Neurological: Normal gait, Normal speech, Normal strength at 5/5 x4 extr, Normal tone, Sensation intact, Cranial nerves 3-12 intact, Normal affect Lymphatics: No axilla or inguinal lymphadenopathy - Studies Laboratory Data (last 24 hrs) 08/20/19 20:25: Sodium 138, Potassium 5.2 H, BUN 24 H, Creatinine 1.86 H, Glucose 140 H, Total Bilirubin 0.3, AST 14 L, ALT 17, Alkaline Phosphatase 84 08/20/19 20:25: WBC 10.3, Hgb 11.9 L, Hct 35.9 L, Plt Count 219 Microbiology Data (last 24 hrs): 08/20/19 18:07 Nasopharnyx Influenza Type A Antigen Screen - Final 08/20/19 18:07 Nasopharnyx Influenza Type B Antigen Screen - Final 08/20/19 18:07 Throat Group A Streptococcus Rapid Screen - Final Assessment & Plan - Problems (Diagnosis) (1) Intractable nausea and vomiting Current Visit: Yes Status: Acute (2) Diarrhea Current Visit: Yes Status: Acute Qualifiers: Diarrhea type: unspecified type Qualified Code(s): R19.7 - Diarrhea, unspecified (3) UTI (urinary tract infection) Current Visit: Yes Status: Acute Qualifiers: Urinary tract infection type: acute cystitis (4) GUS (acute kidney injury) Current Visit: No Status: Acute (5) Diabetic nephropathy Current Visit: No Status: Acute (6) Hypertension Current Visit: No Status: Acute - Plan PLAN: 1. GENTLE HYDRATION 2. RECHECK RENAL FUNCTION 3. ANTIBIOTIC THERAPY 4. ANTIEMETICS 5. REASSESS HEMODYNAMICS AND CHECK BLOOD SUGAR AND BLOOD PRESSURE 6. IF PATIENT'S LABS ARE IMPROVED AND POSSIBLE DC HOME IN THE MORNING Discharge Plan: Home Plan to discharge in: 24 Hours - Advance Directives Does patient have a Living Will: No Does patient have a Durable POA for Healthcare: No - Code Status/Comfort Care Code Status Assessed: Yes Code Status: Full Code Critical Care: No Time Spent Managing PTS Care (In Minutes): 45
[2019-08-21] MEDS ORDERED: INSULIN -REGULAR HUMAN 50 UNIT/0.5 ML ML SQ SCH (11:30)
[2019-08-21 12:52] VITALS: O2SAT 97
[2019-08-21 13:12] VITALS: BP 134/72; TEMP 98.7
[2019-08-21] MEDS ORDERED: HOME MED 1 EA UNK (Metoprolol Tartrate [Metoprolol Tartrate] 100 MG) PO SCH (21:00)
[2019-08-21] MEDS ORDERED: INSULIN 70/30 100 UNITS/ML SQ SCH (21:00)
[2019-08-22] MEDS ORDERED: CYANOCOBALAMIN 1,000 MCG TAB PO SCH (09:00)
[2019-08-22] MEDS ORDERED: FERROUS SULFATE 325 MG TAB PO SCH (09:00)
== END 2019-08-21 12:10 | disposition home or self-care (01) ==
LOC: ER 18:00 → ERHOLD 22:20 → 2ND 23:32
PROVIDERS: ADMIT Hospitalist; ATTEND Family Medicine
DX: E86.0 Dehydration (principal); J01.90 Acute sinusitis, unspecified; J32.9 Chronic sinusitis, unspecified; N17.9 Acute kidney failure, unspecified; N30.00 Acute cystitis without hematuria; E11.22 Type 2 diabetes mellitus with diabetic chronic kidney disease; I12.9 Hypertensive chronic kidney disease with stage 1 through stage 4 chronic kidney disease, or unspecified chronic kidney disease; R11.2 Nausea with vomiting, unspecified; R19.7 Diarrhea, unspecified; N18.3 Chronic kidney disease, stage 3 (moderate); D63.8 Anemia in other chronic diseases classified elsewhere; D51.9 Vitamin B12 deficiency anemia, unspecified
CPT/HCPCS: 36415; 71046; 80053; 81001; 82947; 83605; 85025; 86308; 87070; 87077; 87081; 87086; 87088; 87186; 87804; 93005; 96361; 96365; 99285; G0378; J0360; J7030; J7512; J7799

== ENCOUNTER 2019-09-05 23:16 | Emergency (ER) | payer SELFPAY ==
[2019-09-06] MEDS ORDERED: NA CHLORIDE 0.9% 1,000 ML ONE ×2 (00:18→01:58)
[2019-09-06] MEDS ORDERED: ONDANSETRON 4 MG/2 ML VIAL ONE (00:18)
[2019-09-06 00:49] LABS: Absolute Lymphocytes (CBC) 1.9 K/uL (0.7-4.9); Basophils % 0.8 % (0-1.3); Hematocrit 33.8 % (36.0-45.0); Lymphocytes % 17.4 % (15.3-44.8); MPV 11.2 fL (7.6-11.3)
[2019-09-06 00:59] LABS: ALT/SGPT 17 U/L (12-78); AST/SGOT 15 U/L (15-37); Albumin 3.3 g/dL (3.4-5.0); Alkaline Phosphatase 76 U/L (45-117); BUN Blood Urea Nitrogen 37 mg/dL (7-18); Bicarbonate 27 mmol/L (21-32); Bilirubin Direct < 0.1 mg/dL (0-0.2); Bilirubin Total 0.3 mg/dL (0.2-1.0); Glucose Level 145 mg/dL (74-106); Lipase 40 U/L (73-393); Potassium 4.5 mmol/L (3.5-5.1); Protein, Total 6.8 g/dL (6.4-8.2); Sodium Level 140 mmol/L (136-145)
[2019-09-06 01:53] LABS: Blood Morphology Comment NOTED (NOT SEEN); Platelet Estimate ADEQ; Urine White Blood Cell Casts OK
[2019-09-06] MEDS ORDERED: PROMETHAZINE 25 MG/ML VIAL ONE (02:05)
[2019-09-06 04:05] LABS: Potassium 4.4 mmol/L (3.5-5.1)
--- NOTE | 2019-09-06 05:27 | ER ---
Nurse's Notes [facility] Name: Mercedes Marin Age: 39 yrs Sex: Female : 1980 Arrival Date: 09/05/2019 Time: 23:19 Bed 14 Private MD: Diagnosis: Vomiting;Dehydration;Actue Renal Insufficiency Presentation: 09/05 23:30 Presenting complaint: Daughter states her mom feels nauseated and already vomited 7x wh that started this morning. Denies diarrhea, abdominal pain and fever. Transition of care: patient was not received from another setting of care. Onset of symptoms was September 05, 2019. Risk Assessment: Do you want to hurt yourself or someone else? Patient reports no desire to harm self or others. Initial Sepsis Screen: Does the patient meet any 2 criteria? No. Patient's initial sepsis screen is negative. Does the patient have a suspected source of infection? No. Patient's initial sepsis screen is negative. Care prior to arrival: None. 23:30 Method Of Arrival: Wheelchair 23:30 Acuity: ALONDRA 3 Triage Assessment: 23:37 GI: Reports. 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 - Social history:: Smoking status: Patient/guardian denies using tobacco. - Ebola Screening: : Patient negative for fever greater than or equal to 101.5 degrees Fahrenheit, and additional compatible Ebola Virus Disease symptoms Patient denies exposure to infectious person. Screenin:34 Abuse screen: Denies threats or abuse. Denies injuries from another. Nutritional screening: No deficits noted. Tuberculosis screening: No symptoms or risk factors identified. Fall Risk None identified. Assessment: 23:39 General: Appears in no apparent distress. Behavior is calm, cooperative, appropriate wh for age. Pain: Denies pain. Neuro: Level of Consciousness is awake, alert, obeys commands, Oriented to person, place, time, situation, Appropriate for age. Cardiovascular: Heart tones S1 S2. Respiratory: Airway is patent Respiratory effort is even, unlabored, Respiratory pattern is regular, symmetrical, Breath sounds are clear bilaterally. GI: Abdomen is flat, non-distended, Bowel sounds present X 4 quads. Abd is soft and non tender X 4 quads. Reports nausea, vomiting. : No signs and/or symptoms were reported regarding the genitourinary system. EENT: No signs and/or symptoms were reported regarding the EENT system. Derm: Skin is intact, is healthy with good turgor, Skin is pink, warm \T\ dry. normal. Musculoskeletal: Circulation, motion, and sensation intact. 09/06 00:46 Reassessment: Patient appears in no apparent distress at this time. No changes from previously documented assessment. Patient and/or family updated on plan of care and expected duration. Pain level reassessed. Patient is alert, oriented x 3, equal unlabored respirations, skin warm/dry/pink. 02:02 Reassessment: Patient appears in no apparent distress at this time. No changes from previously documented assessment. Patient and/or family updated on plan of care and expected duration. Pain level reassessed. Patient is alert, oriented x 3, equal unlabored respirations, skin warm/dry/pink. Pt still nauseated notified MD. 02:47 Reassessment: Patient appears in no apparent distress at this time. No changes from previously documented assessment. Patient and/or family updated on plan of care and expected duration. Pain level reassessed. Patient is alert, oriented x 3, equal unlabored respirations, skin warm/dry/pink. Patient states feeling better. Patient states symptoms have improved. 04:03 Reassessment: Patient appears in no apparent distress at this time. No changes from previously documented assessment. Patient and/or family updated on plan of care and expected duration. Pain level reassessed. Patient is alert, oriented x 3, equal unlabored respirations, skin warm/dry/pink. Patient denies pain at this time. Patient states feeling better. Patient states symptoms have improved. 05:04 Reassessment: Patient appears in no apparent distress at this time. No changes from previously documented assessment. Patient and/or family updated on plan of care and expected duration. Pain level reassessed. Patient is alert, oriented x 3, equal unlabored respirations, skin warm/dry/pink. Patient denies pain at this time. Patient states feeling better. Patient states symptoms have improved. Vital Signs: 09/05 23:33 BP 196 / 93; Pulse 85; Resp 18; Temp 98.6; Pulse Ox 100% on R/A; Weight 61.23 kg; Height 5 ft. 2 in. (157.48 cm); 09/06 00:45 BP 172 / 89; Pulse 84; Resp 18; Pulse Ox 98% on R/A; 02:02 BP 181 / 81; Pulse 87; Resp 18; Pulse Ox 99% ; 02:47 BP 170 / 97; Pulse 91; Resp 16; Pulse Ox 99% on R/A; 04:03 BP 168 / 89; Pulse 87; Resp 18; Pulse Ox 100% on R/A; 05:04 BP 166 / 91; Pulse 84; Resp 18; Pulse Ox 99% on R/A; 09/05 23:33 Body Mass Index 24.69 (61.23 kg, 157.48 cm) ED Course: 09/05 23:19 Patient arrived in ED. cf2 23:25 Jade Franklin is Primary Nurse. 23:33 Triage completed. 23:37 Patient has correct armband on for positive identification. Bed in low position. Call light in reach. Side rails up X 1. Pulse ox on. NIBP on. 23:40 Arm band placed on. 23:56 Washington Shaffer MD is Attending Physician. kdr 09/06 00:10 Missed attempt(s): 22 gauge in right forearm. Bleeding controlled, band aid applied, catheter tip intact. 00:39 Inserted saline lock: 24 gauge in left hand, using aseptic technique. aa1 05:32 No provider procedures requiring assistance completed. IV discontinued, intact, bleeding controlled, No redness/swelling at site. Administered Medications: 00:41 Drug: NS 0.9% 1000 ml Route: IV; Rate: 1 bolus; Site: left hand; 02:01 Follow up: Response: No adverse reaction; IV Status: Completed infusion 00:41 Drug: Zofran 4 mg Route: IVP; Site: left hand; 02:01 Follow up: Response: No adverse reaction; Nausea is decreased 02:00 Drug: NS 0.9% 1000 ml Route: IV; Rate: 1 bolus; Site: left hand; 05:34 Follow up: Response: No adverse reaction; IV Status: Completed infusion 02:09 Drug: Phenergan 12.5 mg Route: IVP; Site: left hand; 03:09 Follow up: Response: No adverse reaction; Nausea is decreased Outcome: 05:26 Discharge ordered by . kdr 05:33 Discharged to home ambulatory. 05:33 Condition: stable 05:33 Discharge instructions given to patient, family, Instructed on discharge instructions, follow up and referral plans. 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 05:44 Patient left the ED. Signatures: Farheen Saravia RN RN aa1 Washington Shaffer MD MD kdr Habalo, Winsy Shine Barreto cf2 Corrections: (The following items were deleted from the chart) 00:48 00:45 BP 109 / 72; Pulse 84bpm; Resp 18bpm; Pulse Ox 98% RA; [facility] 05:44 05:33 Discharge instructions given to patient, family, Instructed on discharge instructions, follow up and referral plans. medication usage, POC Nausea and Vomiting Demonstrated understanding of instructions, follow-up care, medications, POC Prescriptions given X 1,
--- NOTE | 2019-09-06 05:27 | EDPHYS ---
Physician Documentation [facility] Name: Mercedes Marin Age: 39 yrs Sex: Female : 1980 Arrival Date: 09/05/2019 Time: 23:19 Bed 14 Private MD: ED Physician Washington Shaffer HPI: 09/06 02:50 This 39 yrs old Female presents to ER via Wheelchair with complaints of kdr Vomiting. 02:50 The patient presents to the emergency department with nausea, that is moderate, kdr vomiting, that is intermittent. Onset: The symptoms/episode began/occurred gradually, this morning, yesterday. Possible causes: unknown. The symptoms are aggravated by food , The symptoms are alleviated by nothing. Associated signs and symptoms: Pertinent positives:. 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 - Social history:: Smoking status: Patient/guardian denies using tobacco. - Ebola Screening: : Patient negative for fever greater than or equal to 101.5 degrees Fahrenheit, and additional compatible Ebola Virus Disease symptoms Patient denies exposure to infectious person. ROS: 09/06 05:52 Constitutional: Negative for fever, chills, and weight loss, Eyes: Negative for injury, kdr pain, redness, and discharge, ENT: Negative for injury, pain, and discharge, Neck: Negative for injury, pain, and swelling, Cardiovascular: Negative for chest pain, palpitations, and edema, Respiratory: Negative for shortness of breath, cough, wheezing, and pleuritic chest pain, Back: Negative for injury and pain, : Negative for injury, bleeding, discharge, and swelling, MS/Extremity: Negative for injury and deformity, Skin: Negative for injury, rash, and discoloration, Neuro: Negative for headache, weakness, numbness, tingling, and seizure activity. Psych: Negative for depression, anxiety, suicide ideation, homicidal ideation, and hallucinations, Allergy/Immunology: Negative for hives, rash, and allergies, Endocrine: Negative for neck swelling, polydipsia, polyuria, polyphagia, and marked weight changes, Hematologic/Lymphatic: Negative for swollen nodes, abnormal bleeding, and unusual bruising. Abdomen/GI: Positive for nausea and vomiting, Negative for abdominal pain, diarrhea, constipation, abdominal cramps, abdominal distension, anorexia, black/tarry stool, rectal pain, rectal bleeding, bowel incontinence. Exam: 05:52 Constitutional: This is a well developed, well nourished patient who is awake, alert, kdr and in no acute distress. Head/Face: Normocephalic, atraumatic. Eyes: Pupils equal round and reactive to light, extra-ocular motions intact. Lids and lashes normal. Conjunctiva and sclera are non-icteric and not injected. Cornea within normal limits. Periorbital areas with no swelling, redness, or edema. Neck: Trachea midline, no thyromegaly or masses palpated, and no cervical lymphadenopathy. Supple, full range of motion without nuchal rigidity, or vertebral point tenderness. No Meningismus. Chest/axilla: Normal chest wall appearance and motion. Nontender with no deformity. No lesions are appreciated. Cardiovascular: Regular rate and rhythm with a normal S1 and S2. No gallops, murmurs, or rubs. Normal PMI, no JVD. No pulse deficits. Respiratory: Lungs have equal breath sounds bilaterally, clear to auscultation and percussion. No rales, rhonchi or wheezes noted. No increased work of breathing, no retractions or nasal flaring. Abdomen/GI: Soft, non-tender, with normal bowel sounds. No distension or tympany. No guarding or rebound. No evidence of tenderness throughout. Back: No spinal tenderness. No costovertebral tenderness. Full range of motion. Skin: Warm, dry with normal turgor. Normal color with no rashes, no lesions, and no evidence of cellulitis. MS/ Extremity: Pulses equal, no cyanosis. Neurovascular intact. Full, normal range of motion. Neuro: Awake and alert, GCS 15, oriented to person, place, time, and situation. Cranial nerves II-XII grossly intact. Motor strength 5/5 in all extremities. Sensory grossly intact. Cerebellar exam normal. Normal gait. Psych: Awake, alert, with orientation to person, place and time. Behavior, mood, and affect are within normal limits. Vital Signs: 09/05 23:33 BP 196 / 93; Pulse 85; Resp 18; Temp 98.6; Pulse Ox 100% on R/A; Weight 61.23 kg; wh Height 5 ft. 2 in. (157.48 cm); 09/06 00:45 BP 172 / 89; Pulse 84; Resp 18; Pulse Ox 98% on R/A; 02:02 BP 181 / 81; Pulse 87; Resp 18; Pulse Ox 99% ; 02:47 BP 170 / 97; Pulse 91; Resp 16; Pulse Ox 99% on R/A; 04:03 BP 168 / 89; Pulse 87; Resp 18; Pulse Ox 100% on R/A; 05:04 BP 166 / 91; Pulse 84; Resp 18; Pulse Ox 99% on R/A; 09/05 23:33 Body Mass Index 24.69 (61.23 kg, 157.48 cm) MDM: 05:26 Patient medically screened. [facility] 05:52 Data reviewed: vital signs, nurses notes, lab test result(s). Counseling: I had a kdr detailed discussion with the patient and/or guardian regarding: the historical points, exam findings, and any diagnostic results supporting the discharge/admit diagnosis, lab results, radiology results, the need for outpatient follow up. 09/05 23:56 Order name: Basic Metabolic Panel; Complete Time: 01:47 [facility] 09/05 23:56 Order name: CBC with Diff; Complete Time: 02:39 [facility] 09/05 23:56 Order name: Creatinine for Radiology; Complete Time: 01:47 [facility] 09/05 23:56 Order name: Hepatic Function; Complete Time: 01:47 kdr 09/05 23:56 Order name: Lipase; Complete Time: 01:47 [facility] 09/06 01:15 Order name: CBC Smear Scan; Complete Time: 02:39 EDMS 09/05 23:56 Order name: IV Saline Lock; Complete Time: 00:26 [facility] 09/05 23:56 Order name: Labs collected and sent; Complete Time: 00:26 [facility] 09/06 03:09 Order name: BMP; Complete Time: 04:32 09/06 04:52 Order name: PO challenge; Complete Time: 04:56 Administered Medications: 00:41 Drug: NS 0.9% 1000 ml Route: IV; Rate: 1 bolus; Site: left hand; 02:01 Follow up: Response: No adverse reaction; IV Status: Completed infusion 00:41 Drug: Zofran 4 mg Route: IVP; Site: left hand; 02:01 Follow up: Response: No adverse reaction; Nausea is decreased 02:00 Drug: NS 0.9% 1000 ml Route: IV; Rate: 1 bolus; Site: left hand; 05:34 Follow up: Response: No adverse reaction; IV Status: Completed infusion 02:09 Drug: Phenergan 12.5 mg Route: IVP; Site: left hand; 03:09 Follow up: Response: No adverse reaction; Nausea is decreased Disposition: 09/06/19 05:26 Discharged to Home. Impression: Vomiting, Dehydration, Actue Renal Insufficiency . - Condition is Stable. - Discharge Instructions: Nausea and Vomiting, Adult, [id number], Dehydration, Adult, [id number]. - Prescriptions for promethazine 25 mg Oral Tablet - take 1 tablet by ORAL route every 6 hours As needed; 20 tablet. - Medication Reconciliation Form, Thank You Letter form. - Follow up: Private Physician; When: 2 - 3 days; Reason: If symptoms return, Further diagnostic work-up, Recheck today's complaints, Continuance of care, Re-evaluation by your physician. - Problem is new. - Symptoms have improved. - Notes: Keep well hydrated and continue to push fluids for the next 24 - 48 hours. You will need to have your blood work (BUN \T\amp; Cr) checked again in the next few days. Signatures: Dispatcher [employer] EDMS Washington Shaffer MD MD kdr Habalo, Winsy Corrections: (The following items were deleted from the chart) 05:44 05:26 09/06/2019 05:26 Discharged to Home. Impression: Vomiting; Dehydration; Actue wh Renal Insufficiency . Condition is Stable. Forms are Medication Reconciliation Form, Thank You Letter, Antibiotic Education, Prescription Opioid Use. Follow up: Private Physician; When: 2 - 3 days; Reason: If symptoms return, Further diagnostic work-up, Recheck today's complaints, Continuance of care, Re-evaluation by your physician. Problem is new. Symptoms have improved. kdr
[2019-09-06 06:07] VITALS: TEMP 98.6
[2019-09-06 06:12] VITALS: BP 166/91; O2SAT 99
== END 2019-09-06 05:44 | disposition home or self-care (01) ==
LOC: ER 23:16
DX: E86.0 Dehydration (principal); N28.9 Disorder of kidney and ureter, unspecified; I10 Essential (primary) hypertension; E11.9 Type 2 diabetes mellitus without complications; Z79.4 Long term (current) use of insulin
CPT/HCPCS: 36415; 80048; 80076; 83690; 85025; 96361; 96374; 96375; 99284; J2405; J2550; J7030

== ENCOUNTER 2019-10-02 19:33 | Inpatient (IN) | payer SELFPAY ==
[~2019-10-02 19:33] MED LIST: ONDANSETRON 4 MG/2 ML VIAL ONE
[2019-10-02] MEDS ORDERED: NA CHLORIDE 0.9% 2,000 ML ONE (20:11)
[2019-10-02] MEDS ORDERED: PROMETHAZINE 25 MG/ML VIAL ONE (20:51)
--- NOTE | 2019-10-02 21:18 | RAD REPORT ---
EXAM DESCRIPTION: RAD - Chest Single View - 10/02/2019 8:41 pm CLINICAL HISTORY: Sepsis, abdominal pain, vomiting COMPARISON: August 20 TECHNIQUE: AP portable chest image was obtained 2035 hours . FINDINGS: Lungs are clear. Heart and vasculature are normal. No measurable pleural effusion and no p neumothorax. No acute bony abnormality seen. No acute aortic findings suspected. IMPRESSION: No acute cardiopulmonary process.
[2019-10-02 21:20] LABS: Arterial Blood Carboxyhemoglob 1.1 % (0-1.5); Blood Gas Oxyhemoglobin 90.8 % (94-97); Blood O2 Saturation 92.6 % (92-98.5)
[2019-10-02] MEDS ORDERED: INSULIN -REGULAR HUMAN 50 UNIT/0.5 ML ML ONE (21:23)
[2019-10-02] MEDS ORDERED: NA CHLORIDE 0.9% 100 ML IV ONE (21:23)
[2019-10-02 21:40] LABS: Absolute Lymphocytes (CBC) 0.3 K/uL (0.7-4.9); Basophils % 0.4 % (0-1.3); Hematocrit 28.1 % (36.0-45.0); Lymphocytes % 2.1 % (15.3-44.8); MPV 10.8 fL (7.6-11.3)
[2019-10-02 21:46] LABS: Protime INR 1.04
[2019-10-02 21:55] LABS: Blood Morphology Comment NOT SEEN (NOT SEEN); Platelet Estimate DECR; Urine White Blood Cell Casts OK
[2019-10-02 21:59] LABS: ALT/SGPT 25 U/L (12-78); AST/SGOT 16 U/L (15-37); Albumin 2.9 g/dL (3.4-5.0); Alkaline Phosphatase 76 U/L (45-117); BUN Blood Urea Nitrogen 25 mg/dL (7-18); Bicarbonate 18 mmol/L (21-32); Bilirubin Direct 0.2 mg/dL (0-0.2); Bilirubin Total 0.6 mg/dL (0.2-1.0); CKMB Creatine Kinase MB 1.6 ng/mL (0.3-3.6); Creatine Phosphokinase 75 U/L (26-192); Glucose Level 379 mg/dL (74-106); Lipase 19 U/L (73-393); Potassium 4.4 mmol/L (3.5-5.1); Protein, Total 6.1 g/dL (6.4-8.2); Sodium Level 138 mmol/L (136-145); Troponin (Emerg Dept Use Only) < 0.02 ng/mL (0.0-0.045)
--- NOTE | 2019-10-02 23:25 | ER ---
Nurse's Notes [facility] Name: Mercedes Marin Age: 39 yrs Sex: Female : 1980 Arrival Date: 10/02/2019 Time: 19:36 Bed 25 Private MD: Diagnosis: Diabetes mellitus due to underlying condition with hyperglycemia;Renal insufficiency;Vomiting, unspecified Presentation: 10/02 19:50 Presenting complaint: states: "she has been throwing up all day starting in the jd3 morning.". Transition of care: patient was not received from another setting of care. Onset of symptoms was October 02, 2019. Risk Assessment: Do you want to hurt yourself or someone else? Patient reports no desire to harm self or others. Initial Sepsis Screen: Does the patient meet any 2 criteria? HR > 90 bpm. No. Patient's initial sepsis screen is negative. Does the patient have a suspected source of infection? No. Patient's initial sepsis screen is negative. Care prior to arrival: None. 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 - Social history:: Smoking status: Patient/guardian denies using tobacco. - Ebola Screening: : Patient negative for fever greater than or equal to 101.5 degrees Fahrenheit, and additional compatible Ebola Virus Disease symptoms. Screenin:00 Abuse screen: Denies threats or abuse. Denies injuries from another. Nutritional ss screening: No deficits noted. Tuberculosis screening: Never had TB. Fall Risk None identified. Assessment: 20:00 General: Appears distressed, uncomfortable, ill, Behavior is calm, cooperative. Pain: ss Denies pain. Neuro: Level of Consciousness is awake, alert, Oriented to person, place, time, situation, Pupils are PERRLA. Cardiovascular: Capillary refill < 3 seconds is brisk in bilateral fingers Patient's skin is warm and dry. Respiratory: Airway is patent Respiratory effort is even, unlabored, Respiratory pattern is regular, symmetrical. GI: Reports nausea, vomiting, since this morning. GI: Abdomen is non-distended, Bowel sounds present X 4 quads. Abd is soft and non tender X 4 quads. : Denies burning with urination, urinary frequency. EENT: Oral mucosa is moist. Throat is clear. Derm: Skin is intact, is healthy with good turgor, Skin is dry, Skin is pink, warm \\T\\ dry. normal. Musculoskeletal: Circulation, motion, and sensation intact. Range of motion: intact in all extremities, Swelling absent. 21:08 Reassessment: phlebotomy at bedside to obtain lab specimens, pest control service technician at nurses ss station to draw ABG next. Pt appears more relaxed after Phenergan administration. DESIREE Davis notified of unsuccessful attempts at obtaining 2nd peripheral IV. 22:08 Reassessment: Patient appears in no apparent distress at this time. Patient and/or ss family updated on plan of care and expected duration. Pain level reassessed. Patient is alert, oriented x 3, equal unlabored respirations, skin warm/dry/pink. PT reports feeling much better Patient denies pain at this time. Patient states feeling better. Patient states symptoms have improved. 23:59 Reassessment: Patient appears in no apparent distress at this time. phlebotomy at ss bedside obtaining repeat lactate and BMP at this time Patient denies pain at this time. 10/03 00:33 Reassessment: Pt is resting in exam room 25 at this time. Respirations remain even and ss unlabored. Verbal order given by Susan Palencia NP to dc insulin drip at this time and turn D5W infusion down to 75 mL/ hour. Talia Rubber Turner notified of changes. Awaiting room assignment for admission. 01:05 Reassessment: Patient appears in no apparent distress at this time. Patient and/or ss family updated on plan of care and expected duration. Pain level reassessed. Patient is alert, oriented x 3, equal unlabored respirations, skin warm/dry/pink. Awaiting for receiving nurse to call back to receive report. Vital Signs: 10/02 19:52 Pulse 107; Resp 17 S; Temp 97.8(O); Pulse Ox 99% on R/A; Weight 65.77 kg (R); Height 5 jd3 ft. 2 in. (157.48 cm) (R); Pain 0/10; 19:59 BP 192 / 98; ss 21:03 BP 178 / 88; Pulse 106; Resp 19; Temp 98.5(O); Pulse Ox 96% ; lt1 22:09 BP 170 / 109; Pulse 111; Resp 16; Pulse Ox 100% on R/A; Pain 0/10; ss 23:16 BP 166 / 87; Pulse 106; Resp 16; Pulse Ox 99% on R/A; Pain 0/10; ss 12 00:50 BP 155 / 82; Pulse 102; Resp 16; Temp 98.2(TE); Pulse Ox 96% on R/A; Pain 0/10; ss 10/02 19:52 Body Mass Index 26.52 (65.77 kg, 157.48 cm) jd3 ED Course: 10/02 19:36 Patient arrived in ED. cl3 19:51 Triage completed. jd3 19:52 Arm band placed on. jd3 19:55 Marbella Allen, WALDEMAR is Primary Nurse. ss 20:00 Patient has correct armband on for positive identification. Bed in low position. Call light in reach. 20:02 [facility]-C [facility]. snw 20:02 Lorenzo Condon MD is Attending Physician. snw 20:20 First set of blood cultures drawn by me. lt1 20:41 Chest Single View XRAY In Process Unspecified. EDMS 20:49 Missed attempt(s): 22 gauge in left antecubital area. lt1 20:49 Inserted saline lock: 22 gauge in left antecubital area, using aseptic technique. lt1 20:50 Missed attempt(s): 22 gauge in right antecubital area. lt1 20:51 Flu Sent. lt1 20:54 Missed attempt(s): 22 gauge in right antecubital area. Bleeding controlled, band aid ss applied, catheter tip intact. 21:00 Missed attempt(s): 24 gauge in left forearm. Bleeding controlled, band aid applied, ss catheter tip intact. 21:04 EKG done, by ED staff. lt1 23:23 Pascual Galvez MD is Hospitalizing Provider. snw 10/03 01:05 No provider procedures requiring assistance completed. Patient admitted, IV remains in ss place. Administered Medications: Discontinued: Insulin Drip - (Insulin Regular Human 100 units, NS 0.9% 100 ml) IV at 5 units/hr continuous; Standard concentration 1unit/ml; Dose for DKA is 0.1 units/kg/hr 10/02 20:14 Drug: NS 0.9% (30 ml/kg) 30 ml/kg Route: IV; Rate: bolus; Site: left antecubital; jd3 23:58 Follow up: IV Status: Completed infusion ss 20:55 Drug: Phenergan 6.25 mg Route: IVP; Site: left antecubital; ss 21:26 Follow up: Response: No adverse reaction; Nausea is decreased ss 21:37 Drug: Insulin Drip - (Insulin Regular Human 100 units, NS 0.9% 100 ml) {Co-Signature: dm5 (Jess Rollins RN).} Route: IV; Rate: 5 units/hr; Site: left antecubital; 23:42 CANCELLED (intervention): D5-1/2 NS with KCl 10 mEq/L 1000 ml IV at 100 ml/hr continuoussnw 23:57 Drug: D5-NS 1000 ml Route: IV; Rate: 100 ml/hr; Site: left antecubital; ss 10/03 00:35 Follow up: Rate change 75 ml/hr ss 00:37 Follow up: IV Status: Infusion continued upon admission ss 00:11 Drug: Rocephin 1 grams Route: IV; Rate: calculated rate; Site: left antecubital; 00:13 Follow up: IV Status: Completed infusion Point of Care Testing: Blood Glucose: 10/02 21:38 Blood Glucose: 375 mg/dL; ss 23:36 Blood Glucose: 192 mg/dL; ss 10/03 00:51 Blood Glucose: 132 mg/dL; Ranges: Outcome: 10/02 23:24 Decision to Hospitalize by Provider. snw 10/03 01:05 Condition: improved ss Instructed on the need for admit. 01:23 Admitted to [facility] via wheelchair, room 230, with chart, Report called to Q[place] 01:24 Patient left the ED. ss Signatures: Dispatcher [employer] EDSusan Dietz FNP-C MANAGER TALENT ACQUISITION-Csnw Marbella Allen, RN RN ss Yomi Vasquez RN RN jd3 Sofya Stephenson lt1 Mohini Stephens cl3 Jess Rollins RN dm5
--- NOTE | 2019-10-02 23:25 | EDPHYS ---
Physician Documentation [facility] Name: Mercedes Marin Age: 39 yrs Sex: Female : 1980 Arrival Date: 10/02/2019 Time: 19:36 Bed 25 Private MD: ED Physician Lorenzo Condon HPI: 10/02 20:43 This 39 yrs old Female presents to ER via Wheelchair with complaints of snw Vomiting. 20:43 The patient presents to the emergency department with nausea, vomiting. Onset: The snw symptoms/episode began/occurred suddenly, this morning. Possible causes: unknown. The symptoms are aggravated by IDDM. Severity of symptoms: At their worst the symptoms were moderate severe. The patient has experienced similar episodes in the past. sees Fredy Khan. 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 - Social history:: Smoking status: Patient/guardian denies using tobacco. - Ebola Screening: : Patient negative for fever greater than or equal to 101.5 degrees Fahrenheit, and additional compatible Ebola Virus Disease symptoms. ROS: 20:44 Eyes: Negative for injury, pain, redness, and discharge, ENT: Negative for injury, snw pain, and discharge, Neck: Negative for injury, pain, and swelling, Cardiovascular: Negative for chest pain, palpitations, and edema, Respiratory: Negative for shortness of breath, cough, wheezing, and pleuritic chest pain, Back: Negative for injury and pain, : Negative for injury, bleeding, discharge, and swelling, MS/Extremity: Negative for injury and deformity, Skin: Negative for injury, rash, and discoloration, Neuro: Negative for headache, weakness, numbness, tingling, and seizure, Psych: Negative for depression, anxiety, suicide ideation, homicidal ideation, and hallucinations. 20:44 Constitutional: Positive for fatigue, malaise, poor PO intake. 20:44 Abdomen/GI: Positive for abdominal pain, nausea and vomiting. Exam: 20:41 Head/Face: Normocephalic, atraumatic. Eyes: Pupils equal round and reactive to light, snw extra-ocular motions intact. Lids and lashes normal. Conjunctiva and sclera are non-icteric and not injected. Cornea within normal limits. Periorbital areas with no swelling, redness, or edema. 20:41 Neck: Trachea midline, no thyromegaly or masses palpated, and no cervical lymphadenopathy. Supple, full range of motion without nuchal rigidity, or vertebral point tenderness. No Meningismus. Chest/axilla: Normal chest wall appearance and motion. Nontender with no deformity. No lesions are appreciated. 20:41 Respiratory: Lungs have equal breath sounds bilaterally, clear to auscultation and percussion. No rales, rhonchi or wheezes noted. No increased work of breathing, no retractions or nasal flaring. Back: No spinal tenderness. No costovertebral tenderness. Full range of motion. 20:41 MS/ Extremity: Pulses equal, no cyanosis. Neurovascular intact. Full, normal range of motion. Neuro: Awake and alert, GCS 15, oriented to person, place, time, and situation. Cranial nerves II-XII grossly intact. Motor strength 5/5 in all extremities. Sensory grossly intact. Cerebellar exam normal. Normal gait. Psych: Awake, alert, with orientation to person, place and time. Behavior, mood, and affect are within normal limits. 20:41 Constitutional: The patient appears awake, frail, listless, pale, uncomfortable. 20:41 ENT: Mouth: Oral mucosa: dry. 20:41 Cardiovascular: Rate: tachycardic, Pulses: no pulse deficits are appreciated, Heart sounds: normal. 20:41 Abdomen/GI: Inspection: abdomen appears normal, Bowel sounds: diminished, in all quadrants, Palpation: moderate abdominal tenderness, in all quadrants. 20:41 Skin: Appearance: Color: pale. Vital Signs: 19:52 Pulse 107; Resp 17 S; Temp 97.8(O); Pulse Ox 99% on R/A; Weight 65.77 kg (R); Height 5 jd3 ft. 2 in. (157.48 cm) (R); Pain 0/10; 19:59 BP 192 / 98; ss 21:03 BP 178 / 88; Pulse 106; Resp 19; Temp 98.5(O); Pulse Ox 96% ; lt1 22:09 BP 170 / 109; Pulse 111; Resp 16; Pulse Ox 100% on R/A; Pain 0/10; ss 23:16 BP 166 / 87; Pulse 106; Resp 16; Pulse Ox 99% on R/A; Pain 0/10; ss 10/03 00:50 BP 155 / 82; Pulse 102; Resp 16; Temp 98.2(TE); Pulse Ox 96% on R/A; Pain 0/10; ss 10/02 19:52 Body Mass Index 26.52 (65.77 kg, 157.48 cm) jd3 MDM: 10/02 20:04 Patient medically screened. [facility] 23:21 Data reviewed: vital signs, nurses notes. Data interpreted: Pulse oximetry: on room air snw is 99 %. Interpretation: normal. Counseling: I had a detailed discussion with the patient and/or guardian regarding: the historical points, exam findings, and any diagnostic results supporting the discharge/admit diagnosis, the presence of at least one elevated blood pressure reading (>120/80) during this emergency department visit, lab results, radiology results, the need for further work-up and treatment in the hospital. Response to treatment: the patient's symptoms have markedly improved after treatment. Physician consultation: Pascual Galvez MD was called at 23:22, was contacted at 23:22, regarding admission, to the telemetry unit. Admission orders: after a detailed discussion of the patient's condition and case, the admit orders are written by me. 10/02 19:58 Order name: Basic Metabolic Panel; Complete Time: 22:02 ss 10/02 23:19 Interpretation: GFR 29. snw 10/02 19:58 Order name: Blood Culture Adult (2) 10/02 19:58 Order name: CBC with Diff; Complete Time: 21:57 ss 10/02 19:58 Order name: Ckmb; Complete Time: 22:02 ss 10/02 19:58 Order name: CPK; Complete Time: 22:02 ss 10/02 19:58 Order name: Lactate; Complete Time: 22:03 ss 10/02 19:58 Order name: LFT's; Complete Time: 22:02 ss 10/02 19:58 Order name: Lipase; Complete Time: 22:02 ss 10/02 19:58 Order name: Procalcitonin; Complete Time: 22:12 ss 10/02 19:58 Order name: Protime (+inr); Complete Time: 21:47 ss 10/02 19:58 Order name: Ptt, Activated; Complete Time: 21:47 ss 10/02 19:58 Order name: Troponin (emerg Dept Use Only); Complete Time: 22:02 ss 10/02 19:58 Order name: Urine Microscopic Only; Complete Time: 23:38 ss 10/02 19:58 Order name: Flu; Complete Time: 21:13 ss 10/02 20:27 Order name: Glucose, Ancillary Testing; Complete Time: 20:31 EDMS 10/02 20:44 Order name: ABG; Complete Time: 21:33 snw 10/02 21:47 Order name: Glucose, Ancillary Testing; Complete Time: 21:47 EDMS 10/02 21:55 Order name: CBC Smear Scan; Complete Time: 21:57 EDMS 10/02 22:41 Order name: Glucose, Ancillary Testing; Complete Time: 22:49 EDMS 10/02 23:34 Order name: Urine Culture EDMS 10/02 23:41 Order name: Chem 7; Complete Time: 00:26 snw 10/02 23:42 Order name: Urine --Ancillary (enter results); Complete Time: 23:50 ar5 10/02 23:42 Order name: Urine Dipstick--Ancillary (enter results); Complete Time: 23:50 ar5 10/02 23:46 Order name: Glucose, Ancillary Testing; Complete Time: 23:50 EDMS 10/03 00:08 Order name: CBC with Automated Diff EDMS 10/03 00:08 Order name: CBC with Automated Diff EDMS 10/03 00:08 Order name: Comprehensive Metabolic Panel EDMS 10/03 00:08 Order name: Comprehensive Metabolic Panel EDMS 10/03 00:08 Order name: Magnesium EDMS 10/03 00:08 Order name: Magnesium EDMS 10/02 19:58 Order name: Chest Single View XRAY; Complete Time: 21:22 ss 10/02 19:58 Order name: Accucheck; Complete Time: 20:51 ss 10/02 19:58 Order name: Cardiac monitoring; Complete Time: 20:55 ss 10/02 19:58 Order name: EKG - Nurse/Tech; Complete Time: 20:55 ss 10/02 19:58 Order name: IV Saline Lock - Large Bore; Complete Time: 23:07 ss 10/02 19:58 Order name: Labs collected and sent; Complete Time: 23:07 ss 10/02 19:58 Order name: O2 Per Protocol; Complete Time: 20:55 ss 10/02 19:58 Order name: O2 Sat Monitoring; Complete Time: 20:55 ss 10/02 19:58 Order name: Urine Dipstick-Ancillary (obtain specimen); Complete Time: 23:06 ss 10/03 00:08 Order name: Consistent Carb (ADA) [address] EDMS 10/03 00:08 Order name: Phosphorus EDMS 10/03 00:08 Order name: Phosphorus EDMS 10/03 00:31 Order name: Lactate Sepsis 2 HR Follow-up; Complete Time: 00:30 EDMS 10/03 01:01 Order name: Glucose, Ancillary Testing; Complete Time: 01:02 EDMS Administered Medications: Discontinued: Insulin Drip - (Insulin Regular Human 100 units, NS 0.9% 100 ml) IV at 5 units/hr continuous; Standard concentration 1unit/ml; Dose for DKA is 0.1 units/kg/hr 20:14 Drug: NS 0.9% (30 ml/kg) 30 ml/kg Route: IV; Rate: bolus; Site: left antecubital; jd3 23:58 Follow up: IV Status: Completed infusion ss 20:55 Drug: Phenergan 6.25 mg Route: IVP; Site: left antecubital; ss 21:26 Follow up: Response: No adverse reaction; Nausea is decreased ss 21:37 Drug: Insulin Drip - (Insulin Regular Human 100 units, NS 0.9% 100 ml) {Co-Signature: ss dm5 (Jess Rollins RN).} Route: IV; Rate: 5 units/hr; Site: left antecubital; 23:42 CANCELLED (intervention): D5-1/2 NS with KCl 10 mEq/L 1000 ml IV at 100 ml/hr continuoussnw 23:57 Drug: D5-NS 1000 ml Route: IV; Rate: 100 ml/hr; Site: left antecubital; ss 10/03 00:35 Follow up: Rate change 75 ml/hr ss 00:37 Follow up: IV Status: Infusion continued upon admission ss 00:11 Drug: Rocephin 1 grams Route: IV; Rate: calculated rate; Site: left antecubital; ss 00:13 Follow up: IV Status: Completed infusion ss Point of Care Testing: Blood Glucose: 10/02 21:38 Blood Glucose: 375 mg/dL; ss 23:36 Blood Glucose: 192 mg/dL; ss 10/03 00:51 Blood Glucose: 132 mg/dL; ss Ranges: Critical Glucose Levels:Adult <50 mg/dl or >400 mg/dl <40 mg/dl or >180 mg/dl Disposition: 10/02/19 23:24 Hospitalization ordered by Pascual Galvez for Observation. Preliminary diagnosis are Diabetes mellitus due to underlying condition with hyperglycemia, Renal insufficiency, Vomiting, unspecified. - Bed requested for Telemetry/MedSurg (observation). - Status is Observation. ss - Condition is Stable. - Problem is an acute exacerbation. - Symptoms have improved. UTI on Admission? No Addendum: 10/05/2019 09:23 Co-signature as Attending Physician, Lorenzo Condon MD I agree with the assessment and c juarez plan of care. Signatures: Dispatcher [employer] EDMS Lorenzo Condon MD MD cha Therrien, Shelly, CONTEMPORARY OR MODERN DANCER-C CONTEMPORARY OR MODERN DANCER-Csnw Elvira Batista RN WALDEMAR bb Marbella Allen RN RN ss Davies, Jonathon, RN RN jd3 Jess Rollins RN dm5 Corrections: (The following items were deleted from the chart) 10/02 23:42 23:39 D5-1/2 NS with KCl 10 mEq/L 1000 ml IV at 100 ml/hr continuous ordered. snw snw 10/03 00:38 10/02 23:24 Hospitalization Ordered by Pascual Galvez MD for Observation. Preliminary bb diagnosis is Diabetes mellitus due to underlying condition with hyperglycemia; Renal insufficiency; Vomiting, unspecified. Bed requested for Telemetry/MedSurg (observation). Status is Observation. Condition is Stable. Problem is an acute exacerbation. Symptoms have improved. UTI on Admission? No. snw 10/03 01:24 00:38 10/02/2019 23:24 Hospitalization Ordered by Pascual Galvez MD for Observation. ss Preliminary diagnosis is Diabetes mellitus due to underlying condition with hyperglycemia; Renal insufficiency; Vomiting, unspecified. Bed requested for Telemetry/MedSurg (observation). Status is Observation. Condition is Stable. Problem is an acute exacerbation. Symptoms have improved. UTI on Admission? No. bb
[2019-10-02 23:33] LABS: Urine Bacteria LOADED /HPF (<20); Urine Culture Reflex Order REFLEXED; Urine RBC 20-50 /HPF (NONE SEEN)
[2019-10-02] MEDS ORDERED: D5.45NS W/KCL 20MEQ 0 ML IV ONE (23:44)
[2019-10-02 23:50] LABS: Urine Blood 3+ (NEG); Urine Glucose 2+ (NEG); Urine Protein 3+ (NEG); Urine pH 6.5 (5.0-7.0)
[2019-10-02] MEDS ORDERED: D5W 1,000 ML IV ONE (23:51)
[2019-10-03] MEDS ORDERED: NA CHLORIDE 0.9% 1,000 ML IV SCH
[2019-10-03] MEDS ORDERED: D50W 25 GM/50 ML SYRINGE/VIAL IV PRN (00:05)
[2019-10-03] MEDS ORDERED: GLUCAGON 1 MG/VIAL IM PRN (00:05)
[2019-10-03] MEDS ORDERED: CEFTRIAXONE/SWI 1gm 1 GM/10 ML SYR ONE (00:07)
[2019-10-03 00:27] LABS: Potassium 4.1 mmol/L (3.5-5.1)
[2019-10-03] MEDS ORDERED: INSULIN GLARGINE 100 UNITS/ML SQ ONE (01:00)
[2019-10-03 01:57] VITALS: BMI 25.9
[2019-10-03] MEDS: NA CHLORIDE 0.9% 1,000 ML IV SCH ×3 (02:14→18:55)
[2019-10-03] MEDS: ONDANSETRON 4 MG/2 ML VIAL IV PRN ×3 (05:15→20:47)
[2019-10-03] MEDS ORDERED: CEFTRIAXONE 1 GM/NS 50 ML 1 GM/50 ML BAG IV SCH (06:00)
[2019-10-03] MEDS ORDERED: PROMETHAZINE 25 MG/ML VIAL IV ONE (08:26)
[2019-10-03] MEDS: METOPROLOL TAR 50 MG TAB PO SCH ×3 (08:30→20:47)
[2019-10-03] MEDS: CEFTRIAXONE/SWI 1gm 1 GM/10 ML SYR IVP SCH ×2 (08:30→20:48)
[2019-10-03] MEDS: ENOXAPARIN 40 MG/0.4 ML SQ SCH (08:31)
[2019-10-03] MEDS: CYANOCOBALAMIN 1,000 MCG TAB SL SCH ×2 (08:31→09:00)
[2019-10-03] MEDS: INSULIN 70/30 100 UNITS/ML SQ SCH (08:31)
--- NOTE | 2019-10-03 08:35 | P.HP ---
Certification for Inpatient Patient admitted to: Observation With expected LOS: <2 Midnights Patient will require the following post-hospital care: None Practitioner: I am a practitioner with admitting privileges, knowledge of patient current condition, hospital course, and medical plan of care. Services: Services provided to patient in accordance with Admission requirements found in Title 42 Section 412.3 of the Code of Federal Regulations Patient History Date of Service: 10/02/19 Reason for admission: intractable nausea vomiting/ hyperglycemia History of Present Illness: Patient is a 39-year-old female who was mainly Kyrgyz speaking, and she came to the hospital with intractable nausea and vomiting. Patient has history of type 1 diabetes and was hyperglycemic. Patient was slightly acidotic as well. Patient ketones in the urine. Patient was given IV fluids and IV insulin. Patient will be admitted to the hospital for further treatment. At this time patient's blood sugars are stable. Patient's anion gap is essentially unremarkable. Will give her a diet and give her some long-acting insulin and continue to monitor her labs closely. Will check an A1c level in the morning. If her nausea and vomiting resolve and she is able to continue her diet and will plan to discharge her over the next 24 hours. Patient also has a history of diabetic nephropathy. Patient's creatinine has been slightly elevated. Will continue to monitor after IV hydration. Hopefully this continues to improve and will get back down to her baseline prior to discharge. Allergies No Known Allergies Allergy (Verified 10/03/19 01:50) Home Medications: Cyanocobalamin (Vitamin B-12) [Vitamin B-12] 1,000 mcg PO DAILY #90 tablet 06/10 Metoprolol Tartrate 100 mg PO BID #60 tablet 06/10/19 Insulin NPH Hum/Reg Insulin Hm [Novolin 70-30 100 Unit/ml Vial] 10 unit SQ BID 06/15/19 Ergocalciferol (Vitamin D2) [Vitamin D2] 1 cap PO SEECOM 10/03/19 Furosemide 1 tab PO SEECOM 10/03/19 - Past Medical/Surgical History Has patient received pneumonia vaccine in the past: Yes Diabetic: Yes -: Diabetes -: Hypertension -: Chronic kidney disease -: Diabetic nephropathy -: Pancreatic pseudocystectomy -: Appendectomy - Family History Mother Medical History: Heart disease, Diabetes - Social History Smoking Status: Never smoker Alcohol use: No CD- Drugs: No Caffeine use: No Place of Residence: Home Review of Systems 10-point ROS is otherwise unremarkable Physical Examination - Vital Signs Temperature: 99.4 F Blood Pressure: 153/75 Pulse: 99 Respirations: 20 Pulse Ox (%): 98 - Physical Exam General: Alert, In no apparent distress, Oriented x3 HEENT: Atraumatic, PERRLA, Mucous membr. moist/pink, EOMI, Sclerae nonicteric Neck: Supple, 2+ carotid pulse no bruit, No LAD, Without JVD or thyroid abnormality Respiratory: Clear to auscultation bilaterally, Normal air movement Cardiovascular: Regular rate/rhythm, Normal S1 S2 Gastrointestinal: Normal bowel sounds, Soft and benign, Non-distended, No tenderness Musculoskeletal: No tenderness Integumentary: No rashes Neurological: Normal gait, Normal speech, Normal strength at 5/5 x4 extr, Normal tone, Sensation intact, Cranial nerves 3-12 intact, Normal affect Lymphatics: No axilla or inguinal lymphadenopathy - Studies Laboratory Data (last 24 hrs) 10/02/19 23:59: Sodium 144, Potassium 4.1, BUN 23 H, Creatinine 1.98 H, Glucose 187 H 10/02/19 21:22: PT 12.3, INR 1.04, APTT 29.5 10/02/19 21:22: WBC 12.8 H, Hgb 9.1 L, Hct 28.1 L, Plt Count 145 L 10/02/19 21:22: Sodium 138, Potassium 4.4, BUN 25 H, Creatinine 1.93 H, Glucose 379 H, Total Bilirubin 0.6, AST 16, ALT 25, Alkaline Phosphatase 76, Lipase 19 L Microbiology Data (last 24 hrs): 10/02/19 20:32 Nasopharnyx Influenza Type A Antigen Screen - Final 10/02/19 20:32 Nasopharnyx Influenza Type B Antigen Screen - Final Assessment & Plan - Problems (Diagnosis) (1) GUS (acute kidney injury) Current Visit: No Status: Acute (2) Diabetic nephropathy Current Visit: No Status: Acute (3) Hypertension Current Visit: No Status: Acute (4) Insulin-dependent diabetes mellitus with ketoacidosis Onset Date: 05/14/16 Current Visit: No Status: Acute (5) Intractable nausea and vomiting Current Visit: No Status: Acute (6) UTI (urinary tract infection) Current Visit: No Status: Acute Qualifiers: Urinary tract infection type: acute cystitis - Plan Plan: 1. Aggressive IV hydration 2. Go ahead and give patient a diet and we will start long-acting insulin 3. Monitor electrolytes closely 4. Replace electrolytes as needed 5. continue with IV antibiotics 6. counseled patient regarding treatment of her blood sugars and her renal issues. If she tolerates her diet and is able to get her insulin started we should be able to discharge her over the next 24-48 hours 7. GI and DVT prophylaxis Discharge Plan: Home Plan to discharge in: 48 Hours - Advance Directives Does patient have a Living Will: No Does patient have a Durable POA for Healthcare: No - Code Status/Comfort Care Code Status Assessed: Yes Code Status: Full Code Critical Care: No Time Spent Managing PTS Care (In Minutes): 45
[2019-10-03 08:44] LABS: Absolute Lymphocytes (CBC) 1.1 K/uL (0.7-4.9); Basophils % 0.3 % (0-1.3); Hematocrit 27.1 % (36.0-45.0); Lymphocytes % 8.1 % (15.3-44.8); MPV 10.6 fL (7.6-11.3); RBC Red Blood Cell Count 3.06 M/uL (3.86-4.86)
[2019-10-03 08:58] LABS: Magnesium 2.2 mg/dL (1.8-2.4); Phosphorus 3.5 mg/dL (2.5-4.9); Potassium 4.1 mmol/L (3.5-5.1)
[2019-10-03] MEDS ORDERED: CEFTRIAXONE 1000 MG/VIAL IVP SCH (09:00)
[2019-10-03] MEDS: METOCLOPRAMIDE 10 MG/2mL INJ IV PRN ×3 (10:11→22:33)
[2019-10-03] MEDS: HYDRALAZINE HCL 20 MG/ML VIAL IV PRN ×2 (12:20→18:56)
--- NOTE | 2019-10-03 12:28 | P.PN ---
Subjective Date of Service: 10/03/19 Chief Complaint: intractable nausea vomiting/ hyperglycemia Patient is still experiencing nausea and vomits. Blood sugar levels have improved. UA suggest the presence of UTI. Physical Examination - Vital Signs Temperature: 99.4 F Blood Pressure: 153/75 Pulse: 99 Respirations: 20 Pulse Ox (%): 98 - Physical Exam General: Alert, Moderate distress (Due to nausea and vomiting) HEENT: Mucous membr. moist/pink Neck: Supple Respiratory: Clear to auscultation bilaterally, Normal air movement Cardiovascular: No edema, Regular rate/rhythm (Tachycardic), Normal S1 S2 Gastrointestinal: Normal bowel sounds, Soft and benign, No tenderness Musculoskeletal: No swelling Integumentary: No rashes - Studies Laboratory Data (last 24 hrs) 10/02/19 23:59: Sodium 144, Potassium 4.1, BUN 23 H, Creatinine 1.98 H, Glucose 187 H 10/02/19 21:22: PT 12.3, INR 1.04, APTT 29.5 10/02/19 21:22: WBC 12.8 H, Hgb 9.1 L, Hct 28.1 L, Plt Count 145 L 10/02/19 21:22: Sodium 138, Potassium 4.4, BUN 25 H, Creatinine 1.93 H, Glucose 379 H, Total Bilirubin 0.6, AST 16, ALT 25, Alkaline Phosphatase 76, Lipase 19 L Microbiology Data (last 24 hrs): 10/02/19 20:32 Nasopharnyx Influenza Type A Antigen Screen - Final 10/02/19 20:32 Nasopharnyx Influenza Type B Antigen Screen - Final Assessment And Plan - Current Problems (Diagnosis) (1) Intractable nausea and vomiting Current Visit: No Status: Acute (2) Insulin dependent diabetes mellitus Current Visit: Yes Status: Acute (3) GUS (acute kidney injury) Current Visit: No Status: Acute (4) UTI (urinary tract infection) Current Visit: No Status: Acute Qualifiers: Urinary tract infection type: acute cystitis (5) Hypertension Current Visit: No Status: Acute - Plan Continue IV Rocephin for UTI Continue IV hydration Antiemetic-IV Zofran IV promethazine and IV Reglan as needed. Follow urine culture. Manage blood sugar with insulin sliding scale. Hold long-acting insulin until patient is able to eat.
[2019-10-03] MEDS ORDERED: HALOPERIDOL LACT 5 MG/ML INJ IV ONE (12:53)
--- NOTE | 2019-10-03 17:18 | EKG ---
Test Date: 2019-10-02 Test Time: 20:59:24 Binder Sorter: LMT MEASUREMENT RESULTS: Intervals: Rate: 106 NH: 158 QRSD: 66 QT: 364 QTc: 483 Benton: P: 54 NH: 158 QRS: -3 T: 82 INTERPRETIVE STATEMENTS: Sinus tachycardia Abnormal ECG Compared to ECG 08/20/2019 21:51:17 Sinus rhythm no longer present Electronically Signed On 10-03-19 17:17:48 MEDIA ARTS PROFESSOR by Gerson Aguilar
[2019-10-03] MEDS: ALPRAZOLAM 0.25 MG TABLET PO PRN (22:33)
[2019-10-04] MEDS: HYDRALAZINE HCL 20 MG/ML VIAL IV PRN ×3 (00:10→21:49)
[2019-10-04] MEDS: ACETAMINOPHEN 500 MG TAB PO PRN (00:10)
[2019-10-04] MEDS ORDERED: LORazepam 2 MG/ML VIAL IV ONE (00:21)
[2019-10-04] MEDS: NA CHLORIDE 0.9% 1,000 ML IV SCH ×2 (02:26→09:20)
[2019-10-04] MEDS: ONDANSETRON 4 MG/2 ML VIAL IV PRN ×4 (03:47→22:58)
[2019-10-04] MEDS: METOCLOPRAMIDE 10 MG/2mL INJ IV PRN ×3 (05:27→20:02)
[2019-10-04] MEDS ORDERED: PROMETHAZINE 25 MG/ML VIAL IV ONE (06:31)
[2019-10-04 06:59] LABS: Basophils % 0.3 % (0-1.3); Lymphocytes % 6.7 % (15.3-44.8); MPV 10.3 fL (7.6-11.3); RBC Red Blood Cell Count 2.92 M/uL (3.86-4.86)
[2019-10-04 07:13] LABS: Bilirubin Total 0.3 mg/dL (0.2-1.0); Magnesium 2.1 mg/dL (1.8-2.4); Phosphorus 4.1 mg/dL (2.5-4.9); Potassium 3.9 mmol/L (3.5-5.1)
[2019-10-04 08:32] LABS: Blood Morphology Comment NOT SEEN (NOT SEEN); Platelet Estimate ADEQ
[2019-10-04] MEDS: METOPROLOL TAR 50 MG TAB PO SCH ×2 (09:11→20:03)
[2019-10-04] MEDS: CYANOCOBALAMIN 1,000 MCG TAB SL SCH (09:11)
[2019-10-04] MEDS: CEFTRIAXONE/SWI 1gm 1 GM/10 ML SYR IVP SCH (09:13)
[2019-10-04] MEDS: ENOXAPARIN 40 MG/0.4 ML SQ SCH (09:13)
[2019-10-04] MEDS ORDERED: GLUCAGON 1 MG/VIAL IM PRN (11:51)
[2019-10-04] MEDS ORDERED: D50W 25 GM/50 ML SYRINGE/VIAL IV PRN (11:51)
--- NOTE | 2019-10-04 14:17 | P.PN ---
Subjective Date of Service: 10/04/19 Primary Care Provider: Fredy Khan NP Chief Complaint: intractable nausea vomiting/ hyperglycemia Subjective: Other (Patient is slowly improving. Less nausea and vomiting.) Physical Examination - Vital Signs Temperature: 98.0 F Blood Pressure: 194/87 Pulse: 113 Respirations: 20 Pulse Ox (%): 97 - Physical Exam General: Alert, In no apparent distress, Oriented x3, Cooperative HEENT: Atraumatic Neck: Supple Respiratory: Clear to auscultation bilaterally, Normal air movement Cardiovascular: Abnormal pulses (Slight sinus tachycardia ) Gastrointestinal: Normal bowel sounds, Soft and benign, Non-distended, No tenderness, No masses, No rebound, No guarding Musculoskeletal: No erythema, No tenderness, No warmth Integumentary: No erythema, No warmth, No cyanosis Neurological: Normal speech, Normal strength at 5/5 x4 extr, Normal tone, Normal affect - Studies Medications List Reviewed: Yes Assessment & Plan Discharge Plan: Home Plan to discharge in: 48 Hours Physician Review Additional Text: Impression: Nausea and vomiting likely related to UTI urine culture positive for Klebsiella complicated with possible history of diabetic gastroparesis Acute on chronic renal disease stage III Hypertension Diabetes mellitus type 2 insulin dependent with hyperglycemia Anemia of chronic disease with iron and B12 deficiency Plan: Nausea and vomiting likely related to UTI urine culture positive for Klebsiella complicated with possible history of diabetic gastroparesis: Will adjust oral antibiotic therapy to Augmentin. Continue IV fluids. Will adjust IV fluids. Encourage ambulation. Will advance diet as tolerated. Encourage ambulation. Will provide incentive spirometer. Anticipate discharge in the next 24-48 hr Acute on chronic renal disease stage III: Will adjust IV fluids. Nephrology consulted. Hypertension: Restart home medication-metoprolol. Diabetes mellitus type 2 insulin dependent with hyperglycemia: Continue with home medication [id number]. Will adjust appropriately. Anemia of chronic disease with iron and B12 deficiency: Continue medication Time Spent Managing Pts Care (In Minutes): 55
[2019-10-04] MEDS: ENOXAPARIN 30 MG/0.3 ML SQ SCH (15:44)
[2019-10-04] MEDS: INSULIN -REGULAR HUMAN 50 UNIT/0.5 ML ML SQ SCH ×2 (16:30→20:03)
[2019-10-04] MEDS: NACHLORIDE 0.45% 1,000 ML IV SCH (16:46)
[2019-10-04] MEDS: AMOX/K CLAV 500 MG TAB PO SCH ×2 (16:46→20:03)
[2019-10-04] MEDS: INSULIN 70/30 100 UNITS/ML SQ SCH (16:46)
[2019-10-04] MEDS: ALPRAZOLAM 0.25 MG TABLET PO PRN (20:03)
[2019-10-05] MEDS: NACHLORIDE 0.45% 1,000 ML IV SCH (00:59)
--- NOTE | 2019-10-05 01:14 | CON ---
Date of Consultation: 10/04/2019 Chief Complaint: Acute on chronic kidney injury, nonoliguric. History Of Present Illness: Patient has underlying chronic kidney disease, stage 3 due to diabetic nephropathy. Patient has multiple medical problems. She presented to the hospital because of nausea, vomiting, and she was found to have acute kidney injury with hyperglycemia. Patient was evaluated for DKA and ketones were present in the urine. Patient is on IV fluids and IV insulin. Patient is admitted to the hospital for intractable nausea, vomiting, and was found to have acute on chronic kidney injury. Previously, she was diagnosed with chronic kidney disease, stage 3. Patient has nonoliguric acute kidney injury secondary to volume depletion, prerenal azotemia, uncontrolled diabetes leading to renal hypoperfusion and acute on chronic kidney injury with nonoliguric ATN. Review of Systems: Constitutional: Patient is feeling better. She denies fever, chills. Eyes: Denies vision changes. Ears, Nose, Mouth and Throat: Denies sore throat, earache. Respiratory: Denies PND, orthopnea. Cardiovascular: Denies chest pain, palpitation, syncope. GI: Complaining of nausea, vomiting. Denies melena, hematemesis. : Denies dysuria, hematuria. Musculoskeletal: Denies muscle aches or joint swelling. All other systems reviewed and all are negative. Past Medical History: Diabetes mellitus; hypertension; chronic kidney disease, stage 3; diabetic nephropathy; pancreatic pseudocyst and pancreatic pseudocystectomy, appendectomy. Family History: Mother, heart disease, diabetes. Social History: Denies tobacco, alcohol, or illicit drugs. Physical Examination: General: Patient is not in apparent distress. Oriented x3. Eyes: Anicteric sclerae. EOMI. Ears, Nose, Mouth, and Throat: Oral mucosa moist. No pallor. Neck: Supple. No bruits. Lungs: Clear to auscultation bilaterally. Normal respiratory effort. Heart: S1, S2. No pericardial friction rub. Abdomen: Soft, benign, nontender. No rebound. No guarding. No CVA tenderness. Extremities: No edema. No clubbing. No cyanosis. Skin: Warm and dry. No skin rashes. Neurological: Moving extremities. Cranial nerves intact. Psychiatric: Alert and oriented x3. Normal affect. Laboratory Data: Sodium 138, potassium 4.4, BUN 25, creatinine 1.93, glucose was 379, total bilirubin 0.6, AP 76, lipase 19. Impression And Plan: 1. Acute kidney injury, nonoliguric secondary to renal hypoperfusion, hypovolemia. Continue IV fluids with aggressive hydration and insulin treatment. Diabetic nephropathy. Continue to control blood pressure medication. Patient will continue insulin for uncontrolled diabetes with ketoacidosis. Intractable nausea, vomiting, likely diabetic gastroparesis. Patient is to have workup for acute pancreatitis primarily and enzymes were negative. 2. Plan is to continue treatment for urinary tract infection with antibiotics , pending urine culture. 3. Avoid nephrotoxic medication. Patient has acute kidney injury. Plan is to check CK level to rule out rhabdomyolysis. ROSEANNA/NATANAEL Voice ID: [id number] Report ID: [id number] MTDD
[2019-10-05] MEDS: METOCLOPRAMIDE 10 MG/2mL INJ IV PRN ×3 (02:35→19:30)
[2019-10-05] MEDS: HYDRALAZINE HCL 20 MG/ML VIAL IV PRN ×2 (03:21→15:47)
[2019-10-05] MEDS: ACETAMINOPHEN 500 MG TAB PO PRN (03:21)
[2019-10-05] MEDS: PANTOPRAZOLE 40MG TABLET PO SCH (03:42)
[2019-10-05 04:30] LABS: Absolute Lymphocytes (CBC) 1.3 K/uL (0.7-4.9); Basophils % 0.3 % (0-1.3); Hematocrit 26.8 % (36.0-45.0); Lymphocytes % 10.8 % (15.3-44.8); MPV 10.8 fL (7.6-11.3); RBC Red Blood Cell Count 3.04 M/uL (3.86-4.86)
[2019-10-05 04:59] LABS: Potassium 3.6 mmol/L (3.5-5.1)
[2019-10-05] MEDS: ONDANSETRON 4 MG/2 ML VIAL IV PRN ×2 (06:15→15:43)
[2019-10-05] MEDS ORDERED: LORAZEPAM 0.5 MG TABLET PO ONE (07:24)
[2019-10-05] MEDS: INSULIN -REGULAR HUMAN 50 UNIT/0.5 ML ML SQ SCH ×4 (07:30→21:00)
[2019-10-05] MEDS: ENOXAPARIN 30 MG/0.3 ML SQ SCH (08:05)
[2019-10-05] MEDS: CYANOCOBALAMIN 1,000 MCG TAB SL SCH (08:05)
[2019-10-05] MEDS: METOPROLOL TAR 50 MG TAB PO SCH ×2 (08:05→21:26)
[2019-10-05] MEDS ORDERED: ALBUTEROL 2.5 MG/3 ML NEB SOL NEB PRN (08:09)
[2019-10-05] MEDS ORDERED: POTASSIUM CL SA 10 MEQ TAB PO ONE (09:00)
[2019-10-05] MEDS: AMOX/K CLAV 500 MG TAB PO SCH (09:25)
[2019-10-05] MEDS: INSULIN 70/30 100 UNITS/ML SQ SCH ×2 (09:26→16:30)
--- NOTE | 2019-10-05 12:18 | RAD REPORT ---
EXAM DESCRIPTION: RAD - Chest Pa And Lat (2 Views) - 10/05/2019 12:12 pm CLINICAL HISTORY: SOB Chest pain. COMPARISON: Chest Single View dated 10/02/2019; Chest Pa And Lat (2 Views) dated 08/20/2019; Chest Pa And Lat (2 Views) dated 06/16/2019; Chest Pa And Lat (2 Views) dated 06/15/2019 FINDINGS: Small bilateral pleural effusions are noted, larger on the right. The heart is upper limit of normal in size. No displaced fractures. IMPRESSION: Small bilateral pleural effusions, larger on the right.
--- NOTE | 2019-10-05 12:28 | RAD REPORT ---
EXAM DESCRIPTION: US - Renal Ultrasound-Complete - 10/05/2019 12:21 pm CLINICAL HISTORY: arf ckd Flank pain COMPARISON: Renal Ultrasound-Complete dated 06/09/2019 FINDINGS: Both kidneys are normal in size, shape and echotexture. The right kidney measures 10.4 x 5.3 x 5.2 cm. No hydronephrosis, focal mass or perinephric fluid. The left kidney measures 10.1 x 5.2 x 5.0 cm. No hydronephrosis, focal mass or perinephric fluid. The urinary bladder is incompletely distended without gross abnormality seen. IMPRESSION: Unremarkable renal sonogram.
[2019-10-05] MEDS ORDERED: FUROSEMIDE 20 MG/ 2ML VIAL IV ONE (12:31)
--- NOTE | 2019-10-05 17:22 | P.PN ---
Subjective Date of Service: 10/05/19 Primary Care Provider: Fredy Khan NP Chief Complaint: intractable nausea vomiting/ hyperglycemia Subjective: Other (Patient had some shortness of breath this morning. Chest x- ray revealed mild pleural effusion. Lasix given. Some nausea but improved overall) Physical Examination - Vital Signs Temperature: 97.9 F Blood Pressure: 160/90 Pulse: 94 Respirations: 21 Pulse Ox (%): 91 - Physical Exam General: Alert, In no apparent distress, Oriented x3, Cooperative HEENT: Atraumatic Neck: Supple Respiratory: Clear to auscultation bilaterally, Normal air movement Cardiovascular: Normal pulses, Regular rate/rhythm Gastrointestinal: Normal bowel sounds, Soft and benign, Non-distended, No masses , No rebound, No guarding Musculoskeletal: No tenderness, No warmth Neurological: Normal speech, Normal strength at 5/5 x4 extr, Normal tone, Normal affect - Studies Microbiology Data (last 24 hrs): 10/02/19 23:00 Clean Catch Urine [place] Count - Final >100,000 CFU/ML. 10/02/19 23:00 Clean Catch Urine - Final Klebsiella Oxytoca Enterococcus Faecalis Medications List Reviewed: Yes Assessment & Plan Discharge Plan: Home Plan to discharge in: 24 Hours Physician Review Additional Text: Impression: Nausea and vomiting likely related to UTI urine culture positive for Klebsiella and enterococcus Suspect GERD Acute on chronic renal disease stage III Hypertension Diabetes mellitus type 2 insulin dependent with hyperglycemia Anemia of chronic disease with iron and B12 deficiency Plan: Nausea and vomiting likely related to UTI urine culture positive for Klebsiella and enterococcus: Will change antibiotic therapy to Levaquin. Will monitor closely. Advance diet. Anticipate discharge tomorrow if improved. Suspect GERD: Will start Protonix. Continue monitor closely. Acute on chronic renal disease stage III: Patient given IV Lasix today. Continue monitor closely. Hypertension: Continue with metoprolol. Norvasc added for better control. Diabetes mellitus type 2 insulin dependent with hyperglycemia: Continue with home medication /30. Will adjust appropriately. Anemia of chronic disease with iron and B12 deficiency: Continue medication Time Spent Managing Pts Care (In Minutes): 55
[2019-10-05] MEDS: ALPRAZOLAM 0.25 MG TABLET PO PRN (19:42)
[2019-10-05] MEDS ORDERED: levoFLOXacin 250 MG TAB PO SCH (21:00)
[2019-10-06] MEDS: ONDANSETRON 4 MG/2 ML VIAL IV PRN ×2 (00:03→08:24)
--- NOTE | 2019-10-06 01:57 | PN ---
Date of Progress Note: 10/05/2019 Chief Complaint: Acute on chronic kidney injury associated with abdominal pain , nausea, vomiting, decreased p.o. intake leading to hypovolemia and nonoliguric ATN. Renal function has not improved significantly since yesterday. Patient has history of chronic kidney disease, stage 3. Serum creatinine level is up to 2.24. Patient is on IV fluids and blood glucose is in better control. Patient presented to the hospital with elevated glycemia and uncontrolled diabetes. Review of Systems: Constitutional: Denies fever, chills. Eyes: Denies vision changes. Ears, Nose, Mouth and Throat: Denies sore throat, earache. Respiratory: Denies PND, orthopnea. Physical Examination: Lungs: Diminished breath sounds at bases. Heart: S1, S2. Abdomen: Soft, benign. Extremities: Slight edema. Laboratory Data: Sodium 138, potassium 3.6, chloride 107, CO2 of 20, BUN 30, creatinine 2.24, glucose 100, calcium 8.3, magnesium 2.0. Impression And Plan: 1. Acute on chronic kidney injury, diabetic kidney disease, hypertension. Continue IV fluids, advance p.o. intake as tolerated. Patient needs to have GI workup to rule out gastroparesis, likely patient has diabetic gastroparesis. Patient needs to have a workup done to rule out acute pancreatitis. 2. Diabetes mellitus. Continue insulin. Monitor electrolytes. Adjust replacement as needed. Currently, electrolytes are stable. There is no significant metabolic acidosis. Continue IV fluids. Monitor fluid balance. I spent 36 min including 25 min to coordinate care plan. ROSEANNA/NATANAEL Voice ID: [id number] Report ID: [id number]
[2019-10-06 02:02] VITALS: O2SAT 96
[2019-10-06] MEDS: METOCLOPRAMIDE 10 MG/2mL INJ IV PRN (04:00)
[2019-10-06 06:19] LABS: Absolute Lymphocytes (CBC) 0.8 K/uL (0.7-4.9); Basophils % 0.5 % (0-1.3); Hematocrit 25.7 % (36.0-45.0); MPV 10.6 fL (7.6-11.3); RBC Red Blood Cell Count 2.87 M/uL (3.86-4.86)
[2019-10-06 07:02] LABS: Magnesium 2.1 mg/dL (1.8-2.4); Potassium 3.9 mmol/L (3.5-5.1)
[2019-10-06] MEDS: INSULIN -REGULAR HUMAN 50 UNIT/0.5 ML ML SQ SCH (07:30)
--- NOTE | 2019-10-06 08:54 | P.DS ---
Admission Date: 10/04/19 Discharge Date: 10/06/19 Primary Care Provider: Fredy Khan NP Disposition: ROUTINE DISCHARGE Discharge Condition: GOOD Reason for Admission: intractable nausea vomiting/ hyperglycemia Consultations: Nephrology-Dr. Ren Procedures: Renal US: FINDINGS: Both kidneys are normal in size, shape and echotexture. The right kidney measures 10.4 x 5.3 x 5.2 cm. No hydronephrosis, focal mass or perinephric fluid. The left kidney measures 10.1 x 5.2 x 5.0 cm. No hydronephrosis, focal mass or perinephric fluid. The urinary bladder is incompletely distended without gross abnormality seen. IMPRESSION: Unremarkable renal sonogram. Medical Problem List: Nausea and vomiting likely related to UTI urine culture positive for Klebsiella and enterococcus Suspect GERD Acute on chronic renal disease stage 4 Hypertension Diabetes mellitus type 2 insulin dependent with hyperglycemia Anemia of chronic disease with iron and B12 deficiency Brief History of Present Illness: 39-year-old female with chronic renal disease and hypertension presented to the emergency room with nausea and vomiting. Patient found to have UTI. Patient was admitted for further evaluation and treatment. Hospital Course: Patient presented with nausea and vomiting. Patient likely with dehydration. Patient found to have UTI. Urine culture positive for Klebsiella and enterococcus. Patient received IV antibiotic therapy. Patient improved. At discharge she is without any significant nausea or vomiting. At discharge she will continue with Levaquin 250 mg once daily for 5 more days. Recommend to continue with UTI prevention. Education will be provided. Recommend to recheck urine culture after treatment to monitor resolution. Patient had acute on chronic renal disease stage 4. Patient was given IV fluids. Nephrology was consulted to further evaluate. Patient remains at baseline. Recommend follow up with nephrology in 1-2 follow up this hospitalization. Recommend to recheck lab-BMP in 1-2 weeks to monitor her progress. Recommended no further use of nonsteroidal anti-inflammatories. Future medications will need to be renally dosed. Patient will continue with a 1500 cc per day fluid restriction. Patient will continue with Lasix as directed previously. Patient likely with GERD. At discharge patient will continue with Protonix 40 mg daily. Patient may benefit with GI evaluation as an outpatient to further address. Patient with underlying hypertension. Additional medication added, this included Norvasc. At discharge she will continue with metoprolol 100 mg 1 pill twice daily and Norvasc 10 mg daily. Recommend to maintain blood pressures less 150/80. Further adjustment can be done by her PCP. Patient with diabetes mellitus type 2 insulin dependent with hyperglycemia. Continued on her medication. This has remained stable. At discharge she will continue with insulin 70/30 10 units twice daily. Recommend to maintain blood sugars less then 140 fasting and less than 200 after meals. Further adjustment can be done by her PCP. Patient with anemia of chronic disease with iron and B12 deficiency. Patient will continue with iron and B12 supplementation. Recommend to recheck CBC, iron and B12 level in 1 months to monitor her progress. Will recommend that GI evaluation as an outpatient to further address. Vital Signs/Physical Exam: Temp Pulse Resp BP Pulse Ox 98.4 F 91 H 18 182/88 H 90 L 10/06/19 04:00 10/06/19 04:00 10/06/19 04:00 10/06/19 04:00 10/06/19 04:00 General: Alert, In no apparent distress, Oriented x3, Cooperative HEENT: Atraumatic Neck: Supple Respiratory: Clear to auscultation bilaterally, Normal air movement Cardiovascular: Normal pulses, Regular rate/rhythm Gastrointestinal: Normal bowel sounds, Soft and benign, Non-distended, No tenderness, No masses, No rebound, No guarding Musculoskeletal: No erythema, No tenderness, No warmth Integumentary: No tenderness/swelling, No erythema, No warmth, No cyanosis Neurological: Normal speech, Normal strength at 5/5 x4 extr, Normal tone, Normal affect Laboratory Data at Discharge: WBC 7.3 K/uL (4.3-10.9) D 10/06/19 05:48 Hgb 8.6 g/dL (12.0-15.0) L 10/06/19 05:48 Hct 25.7 % (36.0-45.0) L 10/06/19 05:48 Plt Count 126 K/uL (152-406) L 10/06/19 05:48 PT 12.3 SECONDS (9.5-12.5) 10/02/19 21:22 INR 1.04 10/02/19 21:22 APTT 29.5 SECONDS (24.3-36.9) 10/02/19 21:22 Sodium 139 mmol/L (136-145) 10/06/19 05:48 Potassium 3.9 mmol/L (3.5-5.1) 10/06/19 05:48 BUN 32 mg/dL (7-18) H 10/06/19 05:48 Creatinine 2.39 mg/dL (0.55-1.3) H 10/06/19 05:48 Glucose 113 mg/dL (74-106) H 10/06/19 05:48 Phosphorus 4.1 mg/dL (2.5-4.9) 10/04/19 06:13 Magnesium 2.1 mg/dL (1.8-2.4) 10/06/19 05:48 Total Bilirubin 0.3 mg/dL (0.2-1.0) 10/04/19 06:13 AST 29 U/L (15-37) 10/04/19 06:13 ALT 34 U/L (12-78) 10/04/19 06:13 Alkaline Phosphatase 87 U/L (45-117) 10/04/19 06:13 Lipase 19 U/L (73-393) L 10/02/19 21:22 Home Medications: Cyanocobalamin (Vitamin B-12) [Vitamin B-12] 1,000 mcg PO DAILY #90 tablet 06/10 Metoprolol Tartrate 100 mg PO BID #60 tablet 06/10/19 Insulin NPH Hum/Reg Insulin Hm [Novolin 70-30 100 Unit/ml Vial] 10 unit SQ BID 06/15/19 Ergocalciferol (Vitamin D2) [Vitamin D2] 1 cap PO SEECOM 10/03/19 Furosemide 1 tab PO SEECOM 10/03/19 Amlodipine Besylate [Norvasc] 10 mg PO DAILY #30 tablet 10/06/19 Folic Acid/Vit B Complex and C [Sinena-Gissel Tablet] 0.8 mg PO DAILY #30 tablet 08/15 Pantoprazole [Protonix Tab*] 40 mg PO ACB #30 tab 10/06/19 levoFLOXacin [Levaquin*] 250 mg PO 2100 #5 tab 10/06/19 New Medications: Amlodipine Besylate [Norvasc] 10 mg PO DAILY #30 tablet Folic Acid/Vit B Complex and C [Sienna-Gissel Tablet] 0.8 mg PO DAILY #30 tablet levoFLOXacin [Levaquin*] 250 mg PO 2100 #5 tab Pantoprazole [Protonix Tab*] 40 mg PO ACB #30 tab Patient Discharge Instructions: 1. Recommend follow up with her PCP in 1 week to follow up this hospitalization. 2. Patient presented with nausea and vomiting. Patient likely with dehydration. Patient found to have UTI. Urine culture positive for Klebsiella and enterococcus. Patient received IV antibiotic therapy. Patient improved. At discharge she is without any significant nausea or vomiting. At discharge she will continue with Levaquin 250 mg once daily for 5 more days. Recommend to continue with UTI prevention. Education will be provided. Recommend to recheck urine culture after treatment to monitor resolution. 3. Patient had acute on chronic renal disease stage 4. Patient was given IV fluids. Nephrology was consulted to further evaluate. Patient remains at baseline. Recommend follow up with nephrology in 1-2 follow up this hospitalization. Recommend to recheck lab-BMP in 1-2 weeks to monitor her progress. Recommended no further use of nonsteroidal anti-inflammatories. Future medications will need to be renally dosed. Patient will continue with a 1500 cc per day fluid restriction. Patient will continue with Lasix as directed previously. 4. Patient likely with GERD. At discharge patient will continue with Protonix 40 mg daily. Patient may benefit with GI evaluation as an outpatient to further address. 5. Patient with underlying hypertension. Additional medication added, this included Norvasc. At discharge she will continue with metoprolol 100 mg 1 pill twice daily and Norvasc 10 mg daily. Recommend to maintain blood pressures less 150/80. Further adjustment can be done by her PCP. 6. Patient with diabetes mellitus type 2 insulin dependent with hyperglycemia. Continued on her medication. This has remained stable. At discharge she will continue with insulin 70/30 10 units twice daily. Recommend to maintain blood sugars less then 140 fasting and less than 200 after meals. Further adjustment can be done by her PCP. 7. Patient with anemia of chronic disease with iron and B12 deficiency. Patient will continue with iron and B12 supplementation. Recommend to recheck CBC, iron and B12 level in 1 months to monitor her progress. Will recommend that GI evaluation as an outpatient to further address. Diet: ADA Activity: Ad shena Time spent managing pt's care (in minutes): 55
[2019-10-06] MEDS ORDERED: AMLODIPINE 5 MG TAB PO SCH ×2 (09:00)
[2019-10-06] MEDS: ENOXAPARIN 30 MG/0.3 ML SQ SCH (09:00)
[2019-10-06] MEDS: METOPROLOL TAR 50 MG TAB PO SCH (09:26)
[2019-10-06] MEDS: INSULIN 70/30 100 UNITS/ML SQ SCH (09:26)
[2019-10-06] MEDS: PANTOPRAZOLE 40MG TABLET PO SCH (09:27)
[2019-10-06] MEDS: CYANOCOBALAMIN 1,000 MCG TAB SL SCH (09:27)
[2019-10-06 10:34] VITALS: TEMP 97.5
[2019-10-06 13:09] VITALS: BP 152/87
--- NOTE | 2019-10-06 18:12 | PN ---
Date of Progress Note: 10/06/2019 Patient doing well. Admitted with hyperglycemia, elevated BUN and creatinine, acute kidney injury se condary to glucose diuresis. The patient feeling much better. Physical Examination: Vital Signs: Blood pressure 152/87, pulse of 86. Had good urine output. Chest: Clear to auscultation. Heart: S1, S2 regular. Abdomen: Soft, nontender. Extremities: No edema. Laboratory Data: H and H 8.6/25.7. Sodium 139, potassium 3.9, bicarb 20, BUN 32, creatinine 2.3, ca lcium 7.8, magnesium 2.1. Current Medications: The patient on include: 1.Lasix 20. 2.KCl. 3.Amlodipine. 4.Hydralazine. 5.Levaquin. 6.Metoprolol. Assessment And Plan: 1.Acute kidney injury secondary to prerenal/toxic acute tubular necrosis secondary to glucose diures is, recovering back to close to baseline. I agree with that discharge planning. Follow up in the of [facility] in 2 to 3 weeks. 2.Hypertension, controlled. Continue current medication. 3.Urinary tract infection. Continue current antibiotic. 4.Diabetes as by primary. HORACIO/NATANAEL Voice ID: [id number] Report ID: [id number]
--- NOTE | 2019-10-13 03:16 | PN ---
Date of Progress Note: 10/12/2019 Subjective: Patient has history of chronic kidney disease. She was found to have hyperglycemia, chilango vated BUN, creatinine, acute kidney injury secondary to volume depletion and uncontrolled diabetes. Patient is feeling better. Renal function has been gradually improving. Physical Examination: General: Not in acute distress. Lungs: Clear to auscultation bilaterally. Heart: S1, S2. Abdomen: Soft, benign. Extremities: No edema. Review of Systems: Denies fever, chills. Denies nausea, vomiting. Laboratory Data: Blood work: Sodium 139, potassium 3.9, bicarbonate 20, BUN 32, creatinine 2.3, majo cium 7.8, magnesium 2.1. Impression And Plan: 1.Acute kidney injury secondary to prerenal azotemia, acute tubular necrosis due to volume depletion in setting of uncontrolled diabetes. Patient is not a candidate for metformin. Continue IV insulin . 2.Hypertension, controlled. Continue current medication. 3.Urinary tract infection, on antibiotics, improving. 4.Diabetes mellitus per primary team. ROSEANNA/MODL Voice ID: [id number] Report ID: [id number]
== END 2019-10-06 10:49 | disposition home or self-care (01) | DRG 689 ==
LOC: ER 19:33 → ERHOLD 10-03 00:11 → 2ND 10-03 01:22 → OBSVTOIN 10-04 15:35
PROVIDERS: ADMIT Hospitalist; ATTEND Hospitalist
DX: N39.0 Urinary tract infection, site not specified (principal); N17.0 Acute kidney failure with tubular necrosis; N18.4 Chronic kidney disease, stage 4 (severe); B96.1 Klebsiella pneumoniae [K. pneumoniae] as the cause of diseases classified elsewhere; B95.2 Enterococcus as the cause of diseases classified elsewhere; K21.9 Gastro-esophageal reflux disease without esophagitis; I12.9 Hypertensive chronic kidney disease with stage 1 through stage 4 chronic kidney disease, or unspecified chronic kidney disease; E11.22 Type 2 diabetes mellitus with diabetic chronic kidney disease; E11.65 Type 2 diabetes mellitus with hyperglycemia; R79.89 Other specified abnormal findings of blood chemistry; D63.1 Anemia in chronic kidney disease; E53.8 Deficiency of other specified B group vitamins; E86.0 Dehydration; E11.21 Type 2 diabetes mellitus with diabetic nephropathy
CPT/HCPCS: 36415; 71045; 71046; 76770; 80048; 80053; 80076; 81003; 81015; 81025; 82550; 82553; 82805; 82947; 83036; 83605; 83690; 83735; 84100; 84145; 84484; 84703; 85025; 85610; 85730; 87040; 87077; 87086; 87088; 87186; 87205; 87804; 93005; 96361; 96365; 96366; 96374; 96375; 97112; 97116; 97161; 99285; G0378; J0360; J0696; J1630; J1650; J1815; J1940; J2405; J2550; J2765; J7030

== ENCOUNTER 2019-10-09 09:45 | Emergency (ER) | payer SELFPAY ==
[2019-10-09] MEDS ORDERED: ONDANSETRON 4 MG/2 ML VIAL ONE ×2 (10:47→14:41)
[2019-10-09] MEDS ORDERED: NA CHLORIDE 0.9% 1,000 ML ONE (10:47)
[2019-10-09] MEDS ORDERED: MORPHINE 4 MG/ML SYR ONE (10:47)
[2019-10-09 11:15] LABS: Absolute Lymphocytes (CBC) 0.8 K/uL (0.7-4.9); Basophils % 0.5 % (0-1.3); Hematocrit 30.1 % (36.0-45.0); Lymphocytes % 7.2 % (15.3-44.8); MPV 10.2 fL (7.6-11.3); RBC Red Blood Cell Count 3.43 M/uL (3.86-4.86)
[2019-10-09 11:19] LABS: Arterial Blood Carboxyhemoglob 0.9 % (0-1.5); Blood Gas Oxyhemoglobin 94.8 % (94-97); Blood O2 Saturation 96.3 % (92-98.5)
[2019-10-09 11:48] LABS: ALT/SGPT 41 U/L (12-78); AST/SGOT 13 U/L (15-37); Albumin 3.3 g/dL (3.4-5.0); Alkaline Phosphatase 79 U/L (45-117); BUN Blood Urea Nitrogen 28 mg/dL (7-18); Bicarbonate 21 mmol/L (21-32); Bilirubin Direct < 0.1 mg/dL (0-0.2); Bilirubin Total 0.4 mg/dL (0.2-1.0); Glucose Level 260 mg/dL (74-106); Lipase 104 U/L (73-393); Potassium 3.9 mmol/L (3.5-5.1); Protein, Total 6.8 g/dL (6.4-8.2); Sodium Level 139 mmol/L (136-145)
[2019-10-09] MEDS ORDERED: PROMETHAZINE 25 MG/ML VIAL ONE (12:12)
--- NOTE | 2019-10-09 12:27 | RAD REPORT ---
EXAM DESCRIPTION: RAD - Abdomen Acute Series - 10/09/2019 12:11 pm CLINICAL HISTORY: vomiting;Abd pain COMPARISON: Chest Pa And Lat (2 Views) dated 10/05/2019 . FINDINGS: Bilateral costophrenic angle blunting is present improved from the October 05 imaging. Clare g base atelectasis present. Lung farmer are better aerated than October 05 imaging. No significant fa ilure or volume overload. Heart size and pulmonary vasculature are normal. No pneumothorax. Moderate stool volume present throughout the colon. This fills but does not dilate the colon. No smal l bowel dilatation. No bowel obstruction, free air or other acute findings. No suspicious calcificati ons. Cholecystectomy clips are present. A safety pin and several points overlie the pelvis presumed t o be in the clothing. No other suspicious for significant findings. IMPRESSION: Small bilateral pleural effusions are present decreased from October 05 imaging. No prog ressive chest process. Moderate stool volume throughout the colon without acute bowel finding.
--- NOTE | 2019-10-09 12:34 | EDPHYS ---
Physician Documentation [facility] Name: Mercedes Marin Age: 39 yrs Sex: Female : 1980 Arrival Date: 10/09/2019 Time: 09:56 Bed 20 Private MD: ED Physician Luis Eduardo Sun HPI: 10/09 12:35 This 39 yrs old Female presents to ER via Ambulatory with complaints of Nausea.pkl 11:02 The patient presents with abdominal pain in the upper abdomen. Onset: The pkl symptoms/episode began/occurred this morning. The symptoms do not radiate. Associated signs and symptoms: Pertinent positives: nausea and vomiting. The patient has been recently been admitted at [facility], by Dr. Dr. Quezada. Patient was admitted to the hospital last week for intractable vomiting, hyperglycemia and UTI. Discharged 2 days ago. 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 - Social history:: Smoking status: Patient/guardian denies using tobacco. - Ebola Screening: : Patient negative for fever greater than or equal to 101.5 degrees Fahrenheit, and additional compatible Ebola Virus Disease symptoms Patient denies exposure to infectious person Patient denies travel to an Ebola-affected area in the 21 days before illness onset No symptoms or risks identified at this time. ROS: 11:02 Eyes: Negative for injury, pain, redness, and discharge, ENT: Negative for injury, pkl pain, and discharge, Neck: Negative for injury, pain, and swelling, Cardiovascular: Negative for chest pain, palpitations, and edema, Respiratory: Negative for shortness of breath, cough, wheezing, and pleuritic chest pain. 11:02 Abdomen/GI: Positive for abdominal pain, nausea and vomiting, of the epigastric area, right upper quadrant and left upper quadrant. 11:02 Back: Negative for acute changes. 11:02 : Negative for urinary symptoms. 11:02 MS/extremity: Negative for acute changes. 11:02 Skin: Negative for rash. 11:02 Neuro: Negative for altered mental status. Exam: 11:02 Head/Face: Normocephalic, atraumatic. Eyes: Pupils equal round and reactive to light, pkl extra-ocular motions intact. Lids and lashes normal. Conjunctiva and sclera are non-icteric and not injected. Cornea within normal limits. Periorbital areas with no swelling, redness, or edema. ENT: Nares patent. No nasal discharge, no septal abnormalities noted. Tympanic membranes are normal and external auditory canals are clear. Oropharynx with no redness, swelling, or masses, exudates, or evidence of obstruction, uvula midline. Mucous membranes moist. Neck: Trachea midline, no thyromegaly or masses palpated, and no cervical lymphadenopathy. Supple, full range of motion without nuchal rigidity, or vertebral point tenderness. No Meningismus. Chest/axilla: Normal chest wall appearance and motion. Nontender with no deformity. No lesions are appreciated. Cardiovascular: Regular rate and rhythm with a normal S1 and S2. No gallops, murmurs, or rubs. Normal PMI, no JVD. No pulse deficits. Respiratory: Lungs have equal breath sounds bilaterally, clear to auscultation and percussion. No rales, rhonchi or wheezes noted. No increased work of breathing, no retractions or nasal flaring. 11:02 Abdomen/GI: Bowel sounds: normal, Palpation: mild abdominal tenderness, in the epigastric area, right upper quadrant and left upper quadrant. 11:02 Back: Exam negative for acute changes. 11:02 : Exam negative for acute changes. 11:02 Musculoskeletal/extremity: Exam is negative for acute changes. 11:02 Skin: Exam negative for rash. 11:02 Neuro: Orientation: is normal, Mentation: is normal, Cranial nerves: grossly normal, Motor: is normal. Vital Signs: 10:16 BP 171 / 92; Pulse 107; Resp 18 S; Temp 98.3; Pulse Ox 100% on R/A; Weight 65.77 kg; iw Height 5 ft. 2 in. (157.48 cm); Pain 10/10; 12:24 BP 139 / 77; Pulse 95; Resp 16 S; Pulse Ox 95% on R/A; iw 10:16 Body Mass Index 26.52 (65.77 kg, 157.48 cm) iw MDM: 10:16 Patient medically screened. pkl 12:31 Data reviewed: vital signs, nurses notes, lab test result(s), radiologic studies, plain pkl films. 10/09 10:28 Order name: Basic Metabolic Panel; Complete Time: 12:01 pkl 10/09 10:28 Order name: CBC with Diff; Complete Time: 11:20 pkl 10/09 10:28 Order name: Creatinine for Radiology; Complete Time: 11:44 pkl 10/09 10:28 Order name: Hepatic Function; Complete Time: 12:01 pkl 10/09 10:28 Order name: Lipase; Complete Time: 12:02 pkl 10/09 10:28 Order name: Hemoglobin A1c pkl 10/09 10:28 Order name: XRAY Abdomen Acute Series; Complete Time: 12:35 pkl 10/09 10:41 Order name: Ketone, Serum; Complete Time: 12:28 pkl 10/09 10:41 Order name: ABG; Complete Time: 11:42 pkl 10/09 10:28 Order name: IV Saline Lock; Complete Time: 12:32 pkl 10/09 10:28 Order name: Labs collected and sent; Complete Time: 11:10 pkl Administered Medications: 11:10 Drug: morphine 4 mg {Note: RASS:1.} Route: IVP; Site: left antecubital; iw 11:10 Drug: Zofran 4 mg Route: IVP; Site: left antecubital; iw 12:20 Drug: Phenergan 12.5 mg Route: IVP; Site: left antecubital; iw 12:21 Drug: NS 0.9% 500 ml Route: IV; Rate: bolus; Site: left antecubital; iw 13:18 Not Given (Duplicate Order): NS 0.9% 1000 ml IV at 100 ml/hr once iw Disposition: 10/09/19 12:33 Discharged to Home. Impression: Abdominal pain. Vomiting. - Condition is Stable. - Prescriptions for Ultram 50 mg Oral Tablet - take 1 tablet by ORAL route every 8 hours As needed; 12 tablet. Zofran 4 mg Oral Tablet - take 1 tablet by ORAL route every 12 hours As needed; 10 tablet. - Medication Reconciliation Form, Thank You Letter, Antibiotic Education, Prescription Opioid Use form. - Follow up: Private Physician; When: 2 - 3 days; Reason: Re-evaluation by your physician. - Problem is new. - Symptoms have improved. Signatures: Dispatcher [employer] EDMS Luis Eduardo Sun MD MD pkl Sonia Dong RN RN iw Corrections: (The following items were deleted from the chart) 14:49 12:33 10/09/2019 12:33 Discharged to Home. Impression: Abdominal pain. Vomiting. iw Condition is Stable. Forms are Medication Reconciliation Form, Thank You Letter, Antibiotic Education, Prescription Opioid Use. Follow up: Private Physician; When: 2 - 3 days; Reason: Re-evaluation by your physician. Problem is new. Symptoms have improved. pkl
--- NOTE | 2019-10-09 12:34 | ER ---
Nurse's Notes [facility] Name: Mercedes Marin Age: 39 yrs Sex: Female : 1980 Arrival Date: 10/09/2019 Time: 09:56 Bed 20 Private MD: Diagnosis: Abdominal pain. Vomiting Presentation: 10/09 10:15 Presenting complaint: Patient states: nausea, vomiting, burning abd pain that started iw this morning, hx of diabetes, was recently admitted to hospital for similar symptoms, hx of pancreatitis. Transition of care: patient was not received from another setting of care. Onset of symptoms was October 09, 2019. 10:15 Method Of Arrival: Ambulatory iw 10:19 Risk Assessment: Do you want to hurt yourself or someone else? Patient reports no iw desire to harm self or others. Initial Sepsis Screen: Does the patient meet any 2 criteria? HR > 90 bpm. Does the patient have a suspected source of infection? No. Patient's initial sepsis screen is negative. Care prior to arrival: None. 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 - Social history:: Smoking status: Patient/guardian denies using tobacco. - Ebola Screening: : Patient negative for fever greater than or equal to 101.5 degrees Fahrenheit, and additional compatible Ebola Virus Disease symptoms Patient denies exposure to infectious person Patient denies travel to an Ebola-affected area in the 21 days before illness onset No symptoms or risks identified at this time. Screenin:48 Abuse screen: Denies threats or abuse. Denies injuries from another. Nutritional iw screening: No deficits noted. Tuberculosis screening: No symptoms or risk factors identified. Fall Risk IV access (20 points). Assessment: 10:50 General: Appears uncomfortable, Behavior is cooperative, restless. General: Denies iw fever. Pain: Complains of pain in abdomen. Neuro: Level of Consciousness is awake, alert, obeys commands, Oriented to person, place, time, situation, Moves all extremities. Full function. Cardiovascular: Patient's skin is warm and dry. Respiratory: Respiratory effort is even, unlabored. GI: Abdomen is non-distended, Bowel sounds present X 4 quads. Reports upper abdominal pain, nausea, vomiting. Derm: Skin is intact, is healthy with good turgor. Musculoskeletal: Range of motion: intact in all extremities. 12:10 Reassessment: pt still c/o feeling nauseous, Dr. Sun notified, verbal order for iw Phenergan 12.5 IVP to be given now. 12:36 Reassessment: Patient appears in no apparent distress at this time. pt appears more iw relaxed at this time, pt sleeping, awakens easily to verbal stimuli. Dr. Sun at beside to update pt on POC, pt will be d/c home, all results WNL, pt to continue taking her antibiotics as prescribed and will be sent home with pain and nausea medicine, pt will f/u with Liv Khan, pt verbalizes understanding. 13:00 Reassessment: pt daughter left to go run errands, pt has no other way home. iw 14:04 Reassessment: Patient appears in no apparent distress at this time. pt still sleeping, iw awakens easily to verbal stimuli, pt does not remember her daughter's number, attempted to call pt and sister from information on demographic sheet, left voice mail, sister's number is not correct. 14:30 Reassessment: pt c/o nausea, Dr. Sun notified, verbal order for Zofran 4 mg IVP, pt iw advised that we need to contact her family to pick her up, several calls made, with voice messages. 14:45 Reassessment: called to say he will be here shortly to picker and sorter load and unload pt, discharge iw instructions given to pt, verbalizes understanding. Vital Signs: 10:16 BP 171 / 92; Pulse 107; Resp 18 S; Temp 98.3; Pulse Ox 100% on R/A; Weight 65.77 kg; iw Height 5 ft. 2 in. (157.48 cm); Pain 10/10; 12:24 BP 139 / 77; Pulse 95; Resp 16 S; Pulse Ox 95% on R/A; iw 10:16 Body Mass Index 26.52 (65.77 kg, 157.48 cm) iw ED Course: 09:56 Patient arrived in ED. as 10:15 Sonia Dong, RN is Primary Nurse. iw 10:16 Luis Eduardo Sun MD is Attending Physician. pkl 10:18 Arm band placed on. iw 10:19 Triage completed. iw 10:39 Missed attempt(s): 22 gauge in left antecubital area. mh5 10:40 Patient has correct armband on for positive identification. Bed in low position. Call mh5 light in reach. Side rails up X 1. Adult w/ patient. Pulse ox on. NIBP on. 10:50 Initial lab(s) drawn, by nj, sent to lab. Inserted saline lock: 22 gauge in left iw antecubital area, using aseptic technique. 11:15 Radiology exam delayed due to IV insertion attempt and/or patient not having jb2 appropriate IV at this time. 12:15 XRAY Abdomen Acute Series In Process Unspecified. EDMS 14:48 No provider procedures requiring assistance completed. IV discontinued, intact, iw bleeding controlled, No redness/swelling at site. Pressure dressing applied. Administered Medications: 11:10 Drug: morphine 4 mg {Note: RASS:1.} Route: IVP; Site: left antecubital; iw 11:10 Drug: Zofran 4 mg Route: IVP; Site: left antecubital; iw 12:20 Drug: Phenergan 12.5 mg Route: IVP; Site: left antecubital; iw 12:21 Drug: NS 0.9% 500 ml Route: IV; Rate: bolus; Site: left antecubital; iw 13:18 Not Given (Duplicate Order): NS 0.9% 1000 ml IV at 100 ml/hr once iw Outcome: 12:33 Discharge ordered by . pkl 14:48 Discharged to home via wheelchair. iw 14:48 Condition: good 14:48 Discharge instructions given to patient, Instructed on discharge instructions, follow up and referral plans. Demonstrated understanding of instructions, follow-up care, medications, Prescriptions given X 2. 14:49 Patient left the ED. iw Signatures: Dispatcher [employer] EDMS Luis Eduardo Sun MD MD pkJavan Pope2 Eloina Isabel as Sonia Dong RN RN [facility] Corrections: (The following items were deleted from the chart) 12:24 10:50 BP 139 / 77; Pulse 95bpm; Resp 16bpm; Spontaneous; Pulse Ox 95% RA; iw iw 15:37 14:45 Reassessment: pt c/o nausea, Dr. Sun notified, verbal order for Zofran 4 mg IVP, iw pt advised that we need to contact her family to pick her up, several calls made, with voice messages iw
[2019-10-09 14:56] VITALS: BP 139/77; O2SAT 95
[2019-10-09 22:31] VITALS: TEMP 98.3
== END 2019-10-09 14:49 | disposition home or self-care (01) ==
LOC: ER 09:45
DX: R10.9 Unspecified abdominal pain (principal); R11.10 Vomiting, unspecified; I10 Essential (primary) hypertension; E11.9 Type 2 diabetes mellitus without complications; Z79.4 Long term (current) use of insulin
CPT/HCPCS: 36415; 74022; 80048; 80076; 82010; 82805; 83690; 85025; 96374; 96375; 99284; J2405; J2550; J7030

== ENCOUNTER 2019-10-10 17:13 | Observation (INO) | payer SELFPAY ==
--- OUTSIDE RECORDS SUMMARY | 2019-10-10 17:15 | XMS REPORT ---
:1980 Author Organization [facility] Address [address] [place] [address] [address] [place] [address] Care Team Providers Name Role Phone Unavailable Unavailable Unavailable Problems This patient has no known problems. Allergies, Adverse Reactions, Alerts This patient has no known allergies or adverse reactions. Medications This patient has no known medications.
[2019-10-10] MEDS ORDERED: METOCLOPRAMIDE 10 MG/2mL INJ ONE (17:51)
[2019-10-10] MEDS ORDERED: ONDANSETRON 4 MG/2 ML VIAL ONE ×2 (17:51→19:00)
[2019-10-10] MEDS ORDERED: FAMOTIDINE 20 MG/2 ML VIAL IV ONE (17:52)
[2019-10-10 17:57] LABS: Absolute Lymphocytes (CBC) 0.7 K/uL (0.7-4.9); Basophils % 0.2 % (0-1.3); Hematocrit 26.2 % (36.0-45.0); Lymphocytes % 5.1 % (15.3-44.8); MPV 10.1 fL (7.6-11.3); RBC Red Blood Cell Count 2.95 M/uL (3.86-4.86)
--- NOTE | 2019-10-10 18:06 | RAD REPORT ---
EXAM DESCRIPTION: RAD - Chest Single View - 10/10/2019 5:59 pm CLINICAL HISTORY: COUGH Chest pain. COMPARISON: Abdomen Acute Series dated 10/09/2019; Chest Pa And Lat (2 Views) dated 10/05/2019; Chest Single View dated 10/02/2019; Chest Pa And Lat (2 Views) dated 08/20/2019 FINDINGS: Portable technique limits examination quality. The lungs are grossly clear. Small bilateral pleural effusions. The heart is normal in size. No displ aced fractures. IMPRESSION: Small bilateral pleural effusions.
[2019-10-10 18:10] LABS: Protime INR 1.12
[2019-10-10 18:21] LABS: Bilirubin Direct 0.1 mg/dL (0-0.2); Bilirubin Total 0.4 mg/dL (0.2-1.0); Magnesium 2.2 mg/dL (1.8-2.4); Protein, Total 6.2 g/dL (6.4-8.2); Troponin (Emerg Dept Use Only) 0.05 ng/mL (0.0-0.045)
[2019-10-10 18:36] LABS: Blood Morphology Comment NOT SEEN (NOT SEEN); Platelet Estimate ADEQ; Urine White Blood Cell Casts OK
--- NOTE | 2019-10-10 18:38 | ER ---
Nurse's Notes [facility] Name: Mercedes Marin Age: 39 yrs Sex: Female : 1980 Arrival Date: 10/10/2019 Time: 17:15 Bed 2 Private MD: Diagnosis: Vomiting;Essential (primary) hypertension;Anemia, unspecified;End stage renal disease;Type 1 diabetes mellitus;Pleurisy Presentation: 10/10 17:15 Presenting complaint: Patient states: epigastric pain, n/v/no appetite, was seen here sv yesterday. Transition of care: patient was not received from another setting of care. Onset of symptoms was October 09, 2019. Risk Assessment: Do you want to hurt yourself or someone else? Patient reports no desire to harm self or others. Care prior to arrival: None. 17:15 Method Of Arrival: Wheelchair sv 17:15 Acuity: ALONDRA 2 sv 17:45 Initial Sepsis Screen: Does the patient meet any 2 criteria? HR > 90 bpm. Does the vc patient have a suspected source of infection? No. Patient's initial sepsis screen is negative. Triage Assessment: 18:22 General:. vc 18:23 General: Appears distressed, uncomfortable, Behavior is anxious, crying. Pain: Denies vc pain. EENT:. Neuro: Level of Consciousness is awake, alert, obeys commands, Oriented to person, place, time. Cardiovascular: Edema is 1+ to generalized. Respiratory: Airway is patent Trachea midline Respiratory effort is even, unlabored. GI: Reports nausea, vomiting. : No signs and/or symptoms were reported regarding the genitourinary system. Derm: Skin is intact, Skin is dry. Musculoskeletal: Range of motion: intact in all extremities. 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 - Social history:: Smoking status: Patient/guardian denies using tobacco. - Ebola Screening: : No symptoms or risks identified at this time. Screenin:30 Abuse screen: Denies threats or abuse. Nutritional screening: Has had N/V for 3 or more vc days. Tuberculosis screening: No symptoms or risk factors identified. Fall Risk Secondary diagnosis (15 points) HTN,DM. IV access (20 points). Total Kirby Fall Scale indicates Low Risk Score (25-44 pts). Fall prevention measures have been instituted. Side Rails Up X 2 Family Present and informed to notify staff if they need to leave bedside. Assessment: 17:45 General: Appears distressed, uncomfortable. Pain: Denies pain. Neuro: Level of vc Consciousness is awake, alert, obeys commands, Oriented to person, place, time. Cardiovascular: Patient's skin is warm and dry. Edema generalized throughout body. Respiratory: Airway is patent Respiratory effort is even, unlabored. GI: Reports nausea, vomiting. GI: Abdomen is round Abd is soft. : No signs and/or symptoms were reported regarding the genitourinary system. EENT: No signs and/or symptoms were reported regarding the EENT system. Derm: Skin is healthy with good turgor. Musculoskeletal: Range of motion: intact in all extremities. 18:38 Reassessment: Patient states the nausea is starting to decrease.. vc 19:35 General: Appears uncomfortable, Behavior is appropriate for age. Pain: Denies pain. ea Neuro: Level of Consciousness is awake, alert, obeys commands, Oriented to person, place, time. Cardiovascular: Patient's skin is warm and dry. Respiratory: Airway is patent Respiratory effort is even, unlabored. GI: Abdomen is round Reports nausea, vomiting. Derm: Skin is pale, Skin temperature is warm. Musculoskeletal: Circulation, motion, and sensation intact. 20:55 Reassessment: Patient and/or family updated on plan of care and expected duration. Pain ea level reassessed. Patient is alert, oriented x 3, equal unlabored respirations, skin warm/dry/pink. 21:03 Reassessment: Patient and/or family updated on plan of care and expected duration. Pain ea level reassessed. Patient is alert, oriented x 3, equal unlabored respirations, skin warm/dry/pink. Report called to Santa MEDEIROS on fourth floor. Pt admitted to fourth floor, left ED via stretcher per tech. Pt tolerating well. Pt accompanied by family. Vital Signs: 17:18 BP 180 / 92; Pulse 115; Resp 20; Temp 99.8; Pulse Ox 99% ; sv 17:38 BP 179 / 95; Pulse 112; Resp 20; Temp 98.9; Pulse Ox 94% on R/A; Pain 0/10; vc 17:48 BP 178 / 110; Pulse 113; Resp 20; Pulse Ox 92% on R/A; vc 18:00 BP 165 / 81; Pulse 114; Resp 19; Pulse Ox 97% on 1.5 lpm NC; vc 20:00 BP 165 / 86; Pulse 112; Resp 18; Pulse Ox 96% on R/A; ea 21:00 BP 146 / 85; Pulse 101; Resp 20; Temp 98.7(O); Pulse Ox 99% on R/A; ea ED Course: 17:15 Patient arrived in ED. sv 17:18 Triage completed. sv 17:18 Arm band placed on. sv 17:20 Lorenzo Condon MD is Attending Physician. nicholas 17:26 Wes Marcelino, RN is Primary Nurse. bp 17:26 Kelly Newton, RN is Primary Nurse. vc 17:30 Inserted saline lock: 18 gauge in left EJ, using aseptic technique. ,using aseptic vc technique. performed by Blood collected. 18:00 Patient has correct armband on for positive identification. Bed in low position. Call vc light in reach. Side rails up X2. Adult w/ patient. 18:09 XRAY Chest (1 view) In Process Unspecified. EDMS 18:30 Lam Quezada DO is Hospitalizing Provider. nicholas 20:39 No provider procedures requiring assistance completed. Patient admitted, IV remains in ea place. Administered Medications: 18:00 Drug: Pepcid 20 mg Route: IVP; Site: left jugular; vc 18:46 Follow up: Response: No adverse reaction vc 18:06 Drug: Reglan 10 mg Route: IVP; Infused Over: 2 mins; Site: left jugular; vc 18:46 Follow up: Response: Nausea is decreased vc 18:06 Drug: Zofran 4 mg Route: IVP; Infused Over: 2 mins; Site: left jugular; vc 18:45 Follow up: Response: No adverse reaction; Nausea is decreased vc 19:02 Drug: Zofran 4 mg Route: IVP; Site: left jugular; aa5 19:20 Follow up: Response: No adverse reaction vc 19:15 Drug: Lovenox 40 mg Route: Sub-Q; Site: right lower abdomen; vc 20:37 Follow up: Response: No adverse reaction ea 20:12 Drug: Lopressor (metoprolol TARTRATE) 50 mg Route: PO; ea 21:00 Follow up: Response: No adverse reaction ea 20:12 Drug: Aspirin 81 mg Route: PO; ea 21:00 Follow up: Response: No adverse reaction ea 20:37 Drug: Phenergan 12.5 mg {Note: left EJ.} Route: IVP; Site: Other; ea 21:00 Follow up: Response: No adverse reaction delonte Point of Care Testing: Blood Glucose: 18:11 Blood Glucose: 259 mg/dL; vc Ranges: Outcome: 18:33 Decision to Hospitalize by Provider. nicholas 20:40 Instructed on the need for admit, Demonstrated understanding of instructions. ea 21:02 Admitted to Med/surg accompanied by tech, room 425, with chart, Report called to delonte Pratt RN 21:02 Condition: stable 21:07 Patient left the ED. delonte Signatures: Dispatcher [employer] Liv Tavarez, RN RN Lorenzo Qureshi MD MD cha Calderon, Audri, RN RN aa5 Zenobia Locke RN RN Wes Hood RN RN Kelly Boland RN RN vc
--- NOTE | 2019-10-10 18:39 | EDPHYS ---
Physician Documentation [facility] Name: Mercedes Marin Age: 39 yrs Sex: Female : 1980 Arrival Date: 10/10/2019 Time: 17:15 Bed 2 Private MD: ED Physician Lorenzo Condon HPI: 10/10 17:39 This 39 yrs old Female presents to ER via Wheelchair with complaints of nicholas Vomiting. 17:39 The patient presents to the emergency department with nausea, vomiting, that is nicholas continuous. Onset: The symptoms/episode began/occurred. Possible causes: unknown. The symptoms are aggravated by food , The symptoms are alleviated by remaining still, prescription meds. Associated signs and symptoms: Pertinent positives: htn, edema. Severity of symptoms: At their worst the symptoms were mild moderate in the emergency department the symptoms are unchanged. The patient has experienced similar episodes in the past. 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 - Social history:: Smoking status: Patient/guardian denies using tobacco. - Ebola Screening: : No symptoms or risks identified at this time. ROS: 17:41 Constitutional: Negative for fever, chills, and weight loss, Eyes: Negative for injury, nicholas pain, redness, and discharge, ENT: Negative for injury, pain, and discharge, Neck: Negative for injury, pain, and swelling, Cardiovascular: Negative for chest pain, palpitations, and edema, Respiratory: Negative for shortness of breath, cough, wheezing, and pleuritic chest pain, Back: Negative for injury and pain, : Negative for injury, bleeding, discharge, and swelling, Skin: Negative for injury, rash, and discoloration, Neuro: Negative for headache, weakness, numbness, tingling, and seizure, Psych: Negative for depression, anxiety, suicide ideation, homicidal ideation, and hallucinations, Allergy/Immunology: Negative for hives, rash, and allergies, Endocrine: Negative for neck swelling, polydipsia, polyuria, polyphagia, and marked weight changes, Hematologic/Lymphatic: Negative for swollen nodes, abnormal bleeding, and unusual bruising. 17:41 Abdomen/GI: Positive for abdominal pain, nausea and vomiting. 17:41 MS/extremity: Positive for swelling, tenderness. Exam: 17:41 Constitutional: This is a well developed, well nourished patient who is awake, alert, nicholas and in no acute distress. Head/Face: Normocephalic, atraumatic. Eyes: Pupils equal round and reactive to light, extra-ocular motions intact. Lids and lashes normal. Conjunctiva and sclera are non-icteric and not injected. Cornea within normal limits. Periorbital areas with no swelling, redness, or edema. ENT: Nares patent. No nasal discharge, no septal abnormalities noted. Tympanic membranes are normal and external auditory canals are clear. Oropharynx with no redness, swelling, or masses, exudates, or evidence of obstruction, uvula midline. Mucous membranes moist. Neck: Trachea midline, no thyromegaly or masses palpated, and no cervical lymphadenopathy. Supple, full range of motion without nuchal rigidity, or vertebral point tenderness. No Meningismus. Chest/axilla: Normal chest wall appearance and motion. Nontender with no deformity. No lesions are appreciated. Respiratory: Lungs have equal breath sounds bilaterally, clear to auscultation and percussion. No rales, rhonchi or wheezes noted. No increased work of breathing, no retractions or nasal flaring. Abdomen/GI: Soft, non-tender, with normal bowel sounds. No distension or tympany. No guarding or rebound. No evidence of tenderness throughout. Female : Normal external genitalia. Skin: Warm, dry with normal turgor. Normal color with no rashes, no lesions, and no evidence of cellulitis. Neuro: Awake and alert, GCS 15, oriented to person, place, time, and situation. Cranial nerves II-XII grossly intact. Motor strength 5/5 in all extremities. Sensory grossly intact. Cerebellar exam normal. Normal gait. 17:41 Cardiovascular: Rate: tachycardic, Rhythm: regular, Pulses: Pulses are 4+ in bilateral radial, brachial, femoral, popliteal, posterior tibial and and dorsalis pedis arteries.. Heart sounds: normal, Edema: 3+ edema to level of left midcalf and right midcalf, JVD: is noted bilaterally, to 3 cm. Vital Signs: 17:18 BP 180 / 92; Pulse 115; Resp 20; Temp 99.8; Pulse Ox 99% ; sv 17:38 BP 179 / 95; Pulse 112; Resp 20; Temp 98.9; Pulse Ox 94% on R/A; Pain 0/10; vc 17:48 BP 178 / 110; Pulse 113; Resp 20; Pulse Ox 92% on R/A; vc 18:00 BP 165 / 81; Pulse 114; Resp 19; Pulse Ox 97% on 1.5 lpm NC; vc 20:00 BP 165 / 86; Pulse 112; Resp 18; Pulse Ox 96% on R/A; ea 21:00 BP 146 / 85; Pulse 101; Resp 20; Temp 98.7(O); Pulse Ox 99% on R/A; ea Procedures: 17:43 Peripheral line: by aseptic technique a peripheral line was placed in the left external nicholas jugular vein. MDM: 17:21 Patient medically screened. [facility] 17:43 Data reviewed: vital signs, nurses notes, lab test result(s), EKG, radiologic studies, nicholas plain films. 10/10 17:38 Order name: Basic Metabolic Panel; Complete Time: 18:27 [facility] 10/10 17:38 Order name: CBC with Diff [facility] 10/10 17:38 Order name: LFT's; Complete Time: 18:27 [facility] 10/10 17:38 Order name: Magnesium; Complete Time: 18:27 [facility] 10/10 17:38 Order name: NT PRO-BNP; Complete Time: 18:27 [facility] 10/10 17:38 Order name: PT-INR; Complete Time: 18:27 [facility] 10/10 17:38 Order name: Troponin (emerg Dept Use Only); Complete Time: 18:27 [facility] 10/10 17:38 Order name: XRAY Chest (1 view); Complete Time: 18:27 [facility] 10/10 18:15 Order name: CBC Smear Scan [facility] 10/10 18:29 Order name: Procalcitonin [facility] 10/10 18:29 Order name: Blood Culture Adult (2) [facility] 10/10 20:32 Order name: Lipase [facility] 10/10 17:38 Order name: EKG; Complete Time: 17:42 [facility] 10/10 17:38 Order name: Cardiac monitoring; Complete Time: 17:43 [facility] 10/10 17:38 Order name: EKG - Nurse/Tech; Complete Time: 18:18 [facility] 10/10 17:38 Order name: IV Saline Lock; Complete Time: 17:43 [facility] 10/10 17:38 Order name: Labs collected and sent; Complete Time: 18:18 [facility] 10/10 17:38 Order name: O2 Per Protocol; Complete Time: 17:43 [facility] 10/10 17:38 Order name: O2 Sat Monitoring; Complete Time: 17:43 [facility] Administered Medications: 18:00 Drug: Pepcid 20 mg Route: IVP; Site: left jugular; vc 18:46 Follow up: Response: No adverse reaction vc 18:06 Drug: Reglan 10 mg Route: IVP; Infused Over: 2 mins; Site: left jugular; vc 18:46 Follow up: Response: Nausea is decreased vc 18:06 Drug: Zofran 4 mg Route: IVP; Infused Over: 2 mins; Site: left jugular; vc 18:45 Follow up: Response: No adverse reaction; Nausea is decreased vc 19:02 Drug: Zofran 4 mg Route: IVP; Site: left jugular; aa5 19:20 Follow up: Response: No adverse reaction vc 19:15 Drug: Lovenox 40 mg Route: Sub-Q; Site: right lower abdomen; vc 20:37 Follow up: Response: No adverse reaction ea 20:12 Drug: Lopressor (metoprolol TARTRATE) 50 mg Route: PO; ea 21:00 Follow up: Response: No adverse reaction ea 20:12 Drug: Aspirin 81 mg Route: PO; ea 21:00 Follow up: Response: No adverse reaction ea 20:37 Drug: Phenergan 12.5 mg {Note: left EJ.} Route: IVP; Site: Other; ea 21:00 Follow up: Response: No adverse reaction ea Point of Care Testing: Blood Glucose: 18:11 Blood Glucose: 259 mg/dL; vc Ranges: Critical Glucose Levels:Adult <50 mg/dl or >400 mg/dl <40 mg/dl or >180 mg/dl Disposition: 10/10/19 18:33 Hospitalization ordered by Lam Quezada for Inpatient Admission. Preliminary diagnosis are Vomiting, Essential (primary) hypertension, Anemia, unspecified, End stage renal disease, Type 1 diabetes mellitus, Pleurisy. - Bed requested for Telemetry/MedSurg (Inpatient). - Status is Inpatient Admission. ea - Condition is Fair. - Problem is new. - Symptoms have improved. UTI on Admission? No Signatures: Dispatcher [employer] EDLiv Spence, RN RN Lorenzo Qureshi MD MD cha Calderon, Audri, RN RN aa5 Denisa Jackson, RN WALDEMAR Zenobia Locke, Kelly Kuo RN, ea, RN WALDEMAR baca Corrections: (The following items were deleted from the chart) 19:15 18:33 Hospitalization Ordered by Lam Quezada DO for Inpatient Admission. Preliminary [facility] diagnosis is Vomiting; Essential (primary) hypertension; Anemia, unspecified; End stage renal disease; Type 1 diabetes mellitus. Bed requested for Telemetry/MedSurg (Inpatient). Status is Inpatient Admission. Condition is Fair. Problem is new. Symptoms have improved. UTI on Admission? No. [facility] 19:31 19:15 10/10/2019 18:33 Hospitalization Ordered by Lam Quezada DO for Inpatient cg Admission. Preliminary diagnosis is Vomiting; Essential (primary) hypertension; Anemia, unspecified; End stage renal disease; Type 1 diabetes mellitus; Pleurisy. Bed requested for Telemetry/MedSurg (Inpatient). Status is Inpatient Admission. Condition is Fair. Problem is new. Symptoms have improved. UTI on Admission? No. nicholas 21:07 19:31 10/10/2019 18:33 Hospitalization Ordered by Lam Quezada DO for Inpatient ea Admission. Preliminary diagnosis is Vomiting; Essential (primary) hypertension; Anemia, unspecified; End stage renal disease; Type 1 diabetes mellitus; Pleurisy. Bed requested for Telemetry/MedSurg (Inpatient). Status is Inpatient Admission. Condition is Fair. Problem is new. Symptoms have improved. UTI on Admission? No. cg
[2019-10-10] MEDS ORDERED: ENOXAPARIN 40 MG/0.4 ML SQ ONE (18:54)
--- NOTE | 2019-10-10 19:57 | P.HP ---
Certification for Inpatient Patient admitted to: Observation With expected LOS: <2 Midnights Patient will require the following post-hospital care: None Practitioner: I am a practitioner with admitting privileges, knowledge of patient current condition, hospital course, and medical plan of care. Services: Services provided to patient in accordance with Admission requirements found in Title 42 Section 412.3 of the Code of Federal Regulations Patient History Date of Service: 10/10/19 Primary Care Provider: None; Nephrology-Dr. Paul Reason for admission: Nausea, vomiting History of Present Illness: 39-year-old female with history of diabetes mellitus type 2 insulin dependent, hypertension, chronic renal disease, GERD, and iron/B12 deficiency. Patient recently hospitalized for UTI and nausea and vomiting. Patient reported increased nausea and vomiting with poor appetite over the past several days. Patient reports seen here at the ER 1 day ago. She reports she was evaluated and sent home. Abdominal series done yesterday showed no acute GI finding. Patient further reports that she then went home but nausea persisted. Therefore she went to [facility] ER. While there patient was evaluated. CT showed no bowel obstruction. Small hiatal hernia with distal esophageal thickening likely esophagitis was noted. Anasarca, small bilateral pleural effusion noted. Fat containing left spigelian hernia noted. Stool noted throughout the colon. Patient was treated and sent home with antiemetic therapy and medication for GERD. Patient continue to have increased nausea and vomiting. She was not able to take good oral intake. Patient denied any significant constipation or diarrhea. Mild bloating noted. Patient reports last bowel movement 2 days ago. Patient denies any significant fever, chills. Edema to the lower extremities reported. Patient came back to the ER for further evaluation. In the ER patient was evaluated. Vital signs stable. She was slightly tachycardic. White count 13.8, hemoglobin 8.7. Platelet count 222. Sodium 142 , potassium 4.0, BUN of 29, creatinine 2.6 with a GFR of 20. Glucose 264. Troponin 0.05. BNP 9000. Patient was given medication for nausea. She was admitted for further evaluation and observation. When I saw the patient in the ER, she appeared stable. CT scan, lab from [facility] ER was reviewed. No significant change noted. I actually discharge the patient about a week ago for her UTI. Previous reports reviewed. Patient had cardiac stress test done May of this year which was unremarkable showing no cardiac stress. Echocardiogram done in May of this year showed ejection fraction of around 70%. On my last recommendation, I suspected GERD. Patient was to follow up with GI to address her chronic nausea and vomiting. She has not been able to follow up with GI. Allergies No Known Allergies Allergy (Verified 10/03/19 01:50) Home medications list reviewed: Yes Home Medications: Cyanocobalamin (Vitamin B-12) [Vitamin B-12] 1,000 mcg PO DAILY #90 tablet 06/10 Metoprolol Tartrate 100 mg PO BID #60 tablet 06/10/19 Insulin NPH Hum/Reg Insulin Hm [Novolin 70-30 100 Unit/ml Vial] 10 unit SQ BID 06/15/19 Ergocalciferol (Vitamin D2) [Vitamin D2] 1 cap PO SEECOM 10/03/19 Furosemide 1 tab PO SEECOM 10/03/19 Amlodipine Besylate [Norvasc] 10 mg PO DAILY #30 tablet 10/06/19 Folic Acid/Vit B Complex and C [Sienna-Gissel Tablet] 0.8 mg PO DAILY #30 tablet 08/15 Pantoprazole [Protonix Tab*] 40 mg PO ACB #30 tab 10/06/19 levoFLOXacin [Levaquin*] 250 mg PO 2100 #5 tab 10/06/19 - Past Medical/Surgical History Diabetic: Yes -: Diabetes mellitus type 2, insulin dependent -: Hypertension -: Chronic kidney disease stage 4 -: Diabetic nephropathy -: GERD with hiatal hernia -: Chronic nausea and vomiting -: Chronic anemia with Iron/B12 deficiency -: History of pancreatitis -: Chronic diastolic CHF -: Pancreatic pseudocystectomy -: Appendectomy -: Cholecystectomy Psychosocial/ Personal History: Patient is - Family History Family History: Reviewed- Non-Contributory - Family History Mother -: Heart disease, Diabetes - Social History Smoking Status: Never smoker Alcohol use: No CD- Drugs: No Caffeine use: No Place of Residence: Home Review of Systems General: As per HPI Eyes: Unremarkable ENT: Unremarkable Respiratory: Unremarkable Cardiovascular: Unremarkable Gastrointestinal: Nausea, Vomiting, Constipation, As per HPI Genitourinary: Unremarkable Musculoskeletal: Pedal edema, As per HPI Integumentary: Unremarkable Neurological: Unremarkable Lymphatics: Unremarkable Physical Examination - Physical Exam General: Alert, In no apparent distress, Oriented x3, Cooperative HEENT: Atraumatic, Normocephalic, Mucous membr. moist/pink Neck: Supple Respiratory: Crackles/rales (Minimal crackles to the bases) Cardiovascular: Abnormal pulses (Mild sinus tachycardia) Gastrointestinal: Normal bowel sounds, Soft and benign, Non-distended, No masses , No rebound, No guarding, Tenderness (No significant abdominal pain noted at this time) Musculoskeletal: No erythema, No tenderness, No warmth Integumentary: No erythema, No warmth, No cyanosis, Tenderness/swelling (1 to 2 + pitting edema to the lower extremities bilateral) Neurological: Normal speech, Normal strength at 5/5 x4 extr, Normal tone, Normal affect - Studies Laboratory Data (last 24 hrs) 10/10/19 17:45: PT 13.2 H, INR 1.12 10/10/19 17:45: WBC 13.8 H D, Hgb 8.7 L, Hct 26.2 L, Plt Count 220 10/10/19 17:45: Sodium 142, Potassium 4.0, BUN 29 H, Creatinine 2.63 H, Glucose 264 H, Magnesium 2.2, Total Bilirubin 0.4, AST 10 L, ALT 32, Alkaline Phosphatase 73 Assessment and Plan - Plan Impression: Acute on chronic nausea and vomiting likely related to esophagitis with hiatal hernia Acute on chronic renal disease stage IV Constipation Chronic bilateral pleural effusion with edema to the lower extremity likely related to chronic diastolic CHF Diabetes mellitus type 2 insulin-dependent with hyperglycemia Hypertension Anemia of chronic disease with iron and B12 deficiency Plan: Acute on chronic nausea and vomiting likely related to esophagitis with hiatal hernia: Patient will be admitted for further treatment and observation. Will provide Phenergan as needed for nausea. Will start Protonix IV twice daily. Will slowly advance diet to GI soft. Will recommend GI evaluation as an outpatient for EGD and colonoscopy as an outpatient. Will monitor closely. Will provide DVT prophylaxis-heparin. Dr. Bolden will cover for hospitalist team tomorrow. Anticipate improvement within the next 24-48 hr with likely discharge Acute on chronic renal disease stage IV: Will monitor closely. Continue 1500 cc per day fluid restriction and low-salt diet. Nephrology consulted for further recommendation. Constipation: Will provide 1 dose of lactulose. Will monitor closely. Chronic bilateral pleural effusion with edema to the lower extremity likely related to chronic diastolic CHF: Will provide IV Lasix tonight. Will continue with Lasix 20 mg p.o. b.i.d.. Continue 1500 cc per day fluid restriction. Previous echocardiogram and cardiac stress tests reviewed from May. Cardiac stress tests unremarkable. Echocardiogram shows ejection fraction around 78%. Troponin slightly elevated today. Will monitor cardiac enzymes. Likely no need for cardiac intervention and consultation. Diabetes mellitus type 2 insulin-dependent with hyperglycemia: Will provide insulin sliding scale and monitor Accu-Cheks. Will continue with her home medication of insulin 70/30 10 units b.i.d.. Will monitor and adjust appropriately. Hypertension: Restart home medication of metoprolol 100 mg 1 pill twice daily. On the previous admission Norvasc was started. Will discontinue Norvasc due to edema to the lower extremity. Will provide hydralazine IV if required. Anemia of chronic disease with iron and B12 deficiency: Continue with iron and B12 supplementation. Will monitor hemoglobin closely. Discharge Plan: Home Plan to discharge in: 24 Hours - Advance Directives Does patient have a Living Will: No Does patient have a Durable POA for Healthcare: No - Code Status/Comfort Care Code Status Assessed: Yes (Patient is full code) Time Spent Managing Pts Care (In Minutes): 55
[2019-10-10] MEDS ORDERED: ASPIRIN 81 MG CHEWABLE TABLET ONE (20:09)
[2019-10-10] MEDS ORDERED: METOPROLOL TAR 50 MG TAB ONE (20:09)
[2019-10-10] MEDS ORDERED: PROMETHAZINE INJ 25 MG/ML AMP ONE (20:19)
[2019-10-10] MEDS ORDERED: GLUCAGON 1 MG/VIAL IM PRN (21:18)
[2019-10-10] MEDS ORDERED: FUROSEMIDE 20 MG/ 2ML VIAL IV ONE (21:18)
[2019-10-10] MEDS ORDERED: SODIUM CHLORIDE 0.9% 10ML INJ IV PRN (21:18)
[2019-10-10] MEDS ORDERED: HEPARIN 5000 UNIT/ML 1 ML VIAL SQ SCH (21:18)
[2019-10-10] MEDS ORDERED: D50W 25 GM/50 ML SYRINGE/VIAL IV PRN (21:18)
[2019-10-10] MEDS ORDERED: LACTULOSE 20 GM/30 ML UCUP PO ONE (21:18)
[2019-10-10] MEDS ORDERED: ACETAMINOPHEN 500 MG TAB PO PRN (21:18)
[2019-10-10] MEDS: FERROUS SULFATE 325 MG TAB PO SCH (22:12)
[2019-10-10] MEDS: METOPROLOL TAR 50 MG TAB PO SCH (22:13)
[2019-10-10] MEDS: PROMETHAZINE INJ 25 MG/ML AMP IV PRN (22:14)
[2019-10-10] MEDS: PANTOPRAZOLE 40 MG INJ IVP SCH (22:20)
[2019-10-10] MEDS: INSULIN -REGULAR HUMAN 50 UNIT/0.5 ML ML SQ SCH (22:45)
[2019-10-11 00:21] LABS: CKMB Creatine Kinase MB 1.5 ng/mL (0.3-3.6); Troponin I 0.05 ng/mL (0.0-0.045)
[2019-10-11] MEDS: ONDANSETRON 4 MG/2 ML VIAL IV PRN ×2 (01:34→07:41)
[2019-10-11] MEDS: HYDRALAZINE HCL 20 MG/ML VIAL IV PRN ×3 (03:39→16:09)
[2019-10-11] MEDS: PROMETHAZINE INJ 25 MG/ML AMP IV PRN (04:21)
[2019-10-11 04:40] LABS: Urine Appearance CLOUDY; Urine Bilirubin NEGATIVE (NEG); Urine Blood TRACE (NEG); Urine Color YELLOW; Urine Glucose 2+ (NEG); Urine Protein 3+ (NEG); Urine Specific Gravity 1.015 (1.005-1.030); Urine Urobilinogen 0.2 mg/dL (0.2-1.0)
[2019-10-11 05:12] LABS: Urine Microscopic Reflex ORDER UMIC
[2019-10-11 06:24] LABS: Urine Bacteria <20 /HPF (<20); Urine Culture Reflex Order NOT NEEDED; Urine RBC NONE SEEN /HPF (NONE SEEN); Urine Urothelial Cells <5 /HPF (NONE SEEN)
[2019-10-11 06:25] LABS: Urine Amorphous Sediment 3+ /HPF (NONE SEEN)
[2019-10-11 07:53] LABS: Absolute Lymphocytes (CBC) 0.9 K/uL (0.7-4.9); Basophils % 0.4 % (0-1.3); Hematocrit 27.3 % (36.0-45.0); Lymphocytes % 8.1 % (15.3-44.8); MPV 9.8 fL (7.6-11.3); RBC Red Blood Cell Count 3.06 M/uL (3.86-4.86)
[2019-10-11 08:04] LABS: Magnesium 2.3 mg/dL (1.8-2.4)
[2019-10-11 08:09] LABS: CKMB Creatine Kinase MB 1.2 ng/mL (0.3-3.6); Troponin I 0.06 ng/mL (0.0-0.045)
[2019-10-11] MEDS: INSULIN -REGULAR HUMAN 50 UNIT/0.5 ML ML SQ SCH ×4 (08:43→20:25)
[2019-10-11] MEDS: INSULIN 70/30 100 UNITS/ML SQ SCH ×2 (08:43→16:10)
[2019-10-11] MEDS: FERROUS SULFATE 325 MG TAB PO SCH ×2 (09:00→20:22)
[2019-10-11] MEDS: METOPROLOL TAR 50 MG TAB PO SCH ×2 (09:00→20:22)
[2019-10-11] MEDS ORDERED: FUROSEMIDE 20 MG TABLET PO SCH (09:00)
[2019-10-11] MEDS: CYANOCOBALAMIN 1,000 MCG TAB PO SCH (09:00)
[2019-10-11] MEDS ORDERED: NA CHLORIDE 0.9% 500 ML IV ONE (09:16)
[2019-10-11] MEDS: NA CHLORIDE 0.9% 1,000 ML IV SCH ×2 (09:45→20:23)
[2019-10-11] MEDS: METOCLOPRAMIDE 10 MG/2mL INJ IV PRN ×3 (09:55→22:17)
[2019-10-11] MEDS: PANTOPRAZOLE 40 MG INJ IVP SCH ×2 (10:04→20:22)
--- NOTE | 2019-10-11 10:13 | P.PN ---
Subjective Date of Service: 10/11/19 Primary Care Provider: None; Nephrology-Dr. Paul Chief Complaint: Nausea, vomiting Patient admitted from the emergency room complaining of nausea vomiting he was recently hospitalized at [facility] apparently she had a CT scan did not show any obstruction esophagitis was noted patient can back to the emergency room no history of cardiopulmonary problems. Still continues to complain of nausea vomiting no diarrhea Review of Systems is unable to be obtained Physical Examination - Vital Signs Temperature: 98.2 F Blood Pressure: 171/83 Pulse: 103 Respirations: 16 Pulse Ox (%): 92 - Physical Exam General: Alert, Moderate distress Respiratory: Clear to auscultation bilaterally Cardiovascular: No edema, Normal S1 S2 Gastrointestinal: Normal bowel sounds, Soft and benign, Non-distended - Studies Laboratory Data (last 24 hrs) 10/10/19 19:13: Lipase 45 L 10/10/19 17:45: PT 13.2 H, INR 1.12 10/10/19 17:45: WBC 13.8 H D, Hgb 8.7 L, Hct 26.2 L, Plt Count 220 10/10/19 17:45: Sodium 142, Potassium 4.0, BUN 29 H, Creatinine 2.63 H, Glucose 264 H, Magnesium 2.2, Total Bilirubin 0.4, AST 10 L, ALT 32, Alkaline Phosphatase 73 Assessment & Plan - Problems (Diagnosis) (1) Nausea & vomiting Current Visit: Yes Status: Acute Plan: Patient is 39 years of age admitted with nausea vomiting she was at [facility] hospital CT scan was done will obtain a copy labs reviewed mildly anemic his chronic renal failure diabetic probably has underlying gastroparesis chest x- rays clear will try some right plan then is nontender nondistended try patient on metoclopramide IV fluids urinary test Qualifiers: Vomiting Intractability: unspecified Discharge Plan: Home Plan to discharge in: 24 Hours
--- NOTE | 2019-10-11 11:45 | RAD REPORT ---
EXAM DESCRIPTION: RAD - Chest Single View - 10/11/2019 11:23 am CLINICAL HISTORY: Shortness of breath COMPARISON: October 10 TECHNIQUE: AP portable chest image was obtained 1121 hours . FINDINGS: Lung volumes are low. Increasing interstitial and alveolar opacification is present felt t o be greater than shallow inspiration artifact. Bilateral pleural effusions are present appearing sta ble to slightly progressive on the right. Heart and vasculature are normal. No pneumothorax. No acute bony abnormality seen. No acute aortic f indings suspected. IMPRESSION: Pleural effusion and lung base parenchymal opacification both appear to be progressive f rom October 10.
[2019-10-11 14:41] LABS: Arterial Blood Carboxyhemoglob 1.4 % (0-1.5); Blood Gas Oxyhemoglobin 95.8 % (94-97); Blood O2 Saturation 98.1 % (92-98.5)
[2019-10-11] MEDS ORDERED: PNEUMOCOCCAL VACCINE 0.5 ML IMVAC ONE (15:00)
--- NOTE | 2019-10-11 16:23 | EKG ---
Test Date: 2019-10-10 Test Time: 17:55:16 Sales Closer: ABBIE MEASUREMENT RESULTS: Intervals: Rate: 116 IA: 128 QRSD: 62 QT: 342 QTc: 475 [place]: P: 69 IA: 128 QRS: -7 T: 58 INTERPRETIVE STATEMENTS: Sinus tachycardia Low voltage QRS Septal infarct, age undetermined Abnormal ECG Compared to ECG 10/02/2019 20:59:24 Low QRS voltage now present Myocardial infarct finding now present Electronically Signed On 10-11-19 16:22:33 SALES MANAGER by Marquez Walter
--- NOTE | 2019-10-11 17:10 | CON ---
Date of Consultation: 10/11/2019 Reason For Consultation: Elevated BUN and creatinine, fluid management. History Of Present Illness: This is a pleasant 39-year-old unfortunate female with significant past medical history of diabetes since 2004, complicated with neuropathy, nephropathy, chronic kidney dise ase, recently admitted to the hospital, baseline creatinine around 1.9 to 2 [facility] creatinine was 2.3, hypertension. Patient recently admitted to the hospital. Patient was dis charged from our hospital on the of this month. According to the nurse, patient was readmitted to [facility]. Patient came to the hospital complaining of abdominal pain, nausea, and vomiting. In [facility], CT was negative for small bowel obstruction. Patient treated as esophagitis with anasarca. Patient also treated for gastroparesis. Patient came to the hospital again with the same symptoms of bloated anasarca with edema on the lower extremity, found to have elevation in BUN and creatinine, creatinine up to 2.6 with elevation in the BNP 9000. For that reason, we have been consulted. Maribell ent has some shortness of breath. Patient had a workup before for the anasarca with echocardiogram, normal ejection fraction. She has nephrotic range proteinuria. Her workup for the nephrotic range p roteinuria including serum protein electrophoresis back in May was normal. Her serology was negat alexis. Hepatitis and lupus have been ruled out. Her proteinuria is usually around 2.6 g back in . Allergies: NO KNOWN DRUG ALLERGY. Home Medications: 1.Lasix. 2.Insulin. 3.Ergocalciferol. 4.Metoprolol. 5.Amlodipine. 6.Pantoprazole. 7.Levaquin. Past Medical History: 1.Diabetes complicated with neuropathy and nephropathy. 2.Hypertension. 3.Chronic kidney disease, stage IV, normal-sized kidney. 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 5.GERD. 6.Pancreatic pseudocyst. Past Surgical History: Cholecystectomy, appendectomy. Family History: Positive for diabetes and hypertension. Social History: Denies smoking, denies drinking, denies drugs abuse. Review of Systems: Head and Neck: No red eye. No ear pain. GI: Has nausea, vomiting, has bloating. : No polyuria, no dysuria, no hematuria. Paradichlorobenzene Tender: No vaginal discharge. Respiratory: Has shortness of breath. Cardiovascular: Has leg swelling. Neuro: Has neuropathy. Musculoskeletal: Low back pain. Endocrine: No polydipsia. Skin: No rash. Physical Examination: General: When I saw the patient, the patient lying in bed with slight shortness of breath. Vital Signs: Blood pressure of 171/83, pulse of 103, afebrile. Patient was given Lasix, had 800 uri ne output. Chest: Clear to auscultation. Heart: S1, S2. Regular. Abdomen: Soft, nontender. Extremities: +1 edema. Neurologic: Alert, oriented x3. Nonfocal. Laboratory Data: Chest x-ray; no cardiomegaly, no congestion. Urinalysis; specific gravity of 1.015 , +3 protein. Sodium 140, potassium 4, bicarb 22, BUN 28, creatinine 2.7, glucose 253. GFR of 20. Calcium 8.7, magnesium 2.3, uric acid 7.7. Cardiac enzyme, 2 sets were negative. BNP of 9157. Prev ious BNP back in May was 1900. PTH 102. Current Medications: The patient is on include promethazine, ferrous sulfate, amlodipine 10 mg, meto prolol, hydralazine, Lasix, lactulose, pantoprazole. Assessment And Plan: 1.Acute kidney injury secondary to prerenal. Patient had peripheral edema with some shortness of br eath. I am going to go ahead and discontinue Lasix, start the patient on IV fluid, and we will monit or the patient. 2.Shortness of breath. Chest x-ray does not support over volume. Patient had third spacing. I am going to go ahead and get ABG. We will monitor. 3.Hypertension, uncontrolled. We will resume home medication. Hold Lasix. 4.Anasarca secondary to nephrotic range of proteinuria. Cardiac source has been ruled out. Repeat TSH. We will hold on the Lasix for the time being and we will monitor. 5.Gastroparesis. Continue symptomatic treatment. Follow up with the primary. HORACIO/NATANAEL Voice ID: [id number] Report ID: [id number]
[2019-10-11 19:36] LABS: Specific Gravity 1.015 (1.005-1.030)
[2019-10-12 05:01] VITALS: BMI 29.3
[2019-10-12] MEDS: NA CHLORIDE 0.9% 1,000 ML IV SCH (05:21)
[2019-10-12] MEDS: HYDRALAZINE HCL 20 MG/ML VIAL IV PRN (05:27)
[2019-10-12] MEDS: INSULIN -REGULAR HUMAN 50 UNIT/0.5 ML ML SQ SCH ×3 (07:30→16:30)
[2019-10-12] MEDS: FERROUS SULFATE 325 MG TAB PO SCH (08:26)
[2019-10-12] MEDS: INSULIN 70/30 100 UNITS/ML SQ SCH ×2 (08:26→16:30)
[2019-10-12] MEDS: PANTOPRAZOLE 40 MG INJ IVP SCH (08:27)
[2019-10-12] MEDS: METOPROLOL TAR 50 MG TAB PO SCH (08:27)
--- NOTE | 2019-10-12 08:29 | RAD REPORT ---
EXAM DESCRIPTION: NM - Vent Perfusion VQ Scan - 10/12/2019 7:00 am CLINICAL HISTORY: SOB , Nephrotic COMPARISON: Liver Only dated 06/15/2019; Chest Single View dated 10/11/2019 TECHNIQUE: 13.3mCi Xe-133 gas inhaled and 6.6mCi Tc-MAA IV. Planar ventilation scan was performed in posterior projection after Xe-133 gas inhalation (wash-in, e quilibrium, and wash-out phases) followed by perfusion scan with Tc-MAA IV in multiple projections. Examination is correlated with recent chest radiograph. FINDINGS: Normal ventilation with appropriate wash-out and no significant air-trapping. No mismatched segmental perfusion defect. IMPRESSION: Very low probability of acute pulmonary embolism.
[2019-10-12] MEDS: CYANOCOBALAMIN 1,000 MCG TAB PO SCH (08:35)
[2019-10-12] MEDS ORDERED: AMLODIPINE 10 MG TAB PO SCH (09:00)
[2019-10-12 10:07] LABS: Potassium 3.8 mmol/L (3.5-5.1)
--- NOTE | 2019-10-12 16:25 | P.DS ---
Admission Date: 10/10/19 Discharge Date: 10/12/19 Primary Care Provider: None; Nephrology-Dr. Paul Disposition: ROUTINE DISCHARGE Discharge Condition: GOOD Reason for Admission: Nausea, vomiting Consultations: Nephrology-Dr. Manzano - Problems (1) Nausea & vomiting Status: Acute Qualifiers: Vomiting Intractability: unspecified (2) Insulin dependent diabetes mellitus Status: Acute (3) Acute worsening of stage 4 chronic kidney disease Status: Acute Brief History of Present Illness: 39-year-old woman with a history of insulin-dependent diabetes mellitus, chronic kidney disease, nephrotic range proteinuria presented to the emergency department with complaint of intractable nausea and vomiting. Her serum creatinine was noted to be mildly elevated above baseline. The patient could not hold anything food or drink in. UA was negative for UTI. Patient was placed under observation for supportive measures. Hospital Course: She was seen and evaluated by nephrology-Dr. Manzano. Patient was hydrated with IV fluids, her Lasix was held. Patient was also placed on IV Protonix and IV Reglan. Her symptoms improved. She tolerated diet advancement. Her serum creatinine also improved. Noted to have blood glucose level has been less than 100 and there is high risk for hypoglycemia with her insulin 70/30. Patient has been told to avoid the insulin 70/30 until she is able to eat well or her blood sugar is ranging from 150to 200. Her lasix is resumed on discharge. She will follow with Dr. Manzano within 1 week. Vital Signs/Physical Exam: Temp Pulse Resp BP Pulse Ox 98.3 F 76 18 139/70 98 10/12/19 12:00 10/12/19 12:00 10/12/19 12:00 10/12/19 12:10/12/19 12:00 General: Alert, In no apparent distress, Oriented x3 HEENT: Mucous membr. moist/pink Neck: Supple Respiratory: Clear to auscultation bilaterally, Normal air movement Cardiovascular: Regular rate/rhythm, Normal S1 S2 Gastrointestinal: Normal bowel sounds, Soft and benign, No tenderness Laboratory Data at Discharge: WBC 11.4 K/uL (4.3-10.9) H D 10/11/19 07:37 Hgb 9.1 g/dL (12.0-15.0) L 10/11/19 07:37 Hct 27.3 % (36.0-45.0) L 10/11/19 07:37 Plt Count 233 K/uL (152-406) 10/11/19 07:37 PT 13.2 SECONDS (9.5-12.5) H 10/10/19 17:45 INR 1.12 10/10/19 17:45 Sodium 141 mmol/L (136-145) 10/12/19 09:43 Potassium 3.8 mmol/L (3.5-5.1) 10/12/19 09:43 BUN 26 mg/dL (7-18) H 10/12/19 09:43 Creatinine 2.32 mg/dL (0.55-1.3) H 10/12/19 09:43 Glucose 119 mg/dL (74-106) H 10/12/19 09:43 Uric Acid 7.7 mg/dL (2.6-6.0) H 10/11/19 07:37 Magnesium 2.3 mg/dL (1.8-2.4) 10/11/19 07:37 Total Bilirubin 0.4 mg/dL (0.2-1.0) 10/10/19 17:45 AST 10 U/L (15-37) L 10/10/19 17:45 ALT 32 U/L (12-78) 10/10/19 17:45 Alkaline Phosphatase 73 U/L (45-117) 10/10/19 17:45 Troponin I 0.06 ng/mL (0.0-0.045) H 10/11/19 07:37 Lipase 45 U/L (73-393) L 10/10/19 19:13 Home Medications: Metoprolol Tartrate 100 mg PO BID #60 tablet 06/10/19 Insulin NPH Hum/Reg Insulin Hm [Novolin 70-30 100 Unit/ml Vial] 10 unit SQ BID 06/15/19 Ergocalciferol (Vitamin D2) [Vitamin D2] 1 cap PO SEECOM 10/03/19 Amlodipine Besylate [Norvasc] 10 mg PO DAILY #30 tablet 10/06/19 Folic Acid/Vit B Complex and C [Sienna-Gissel Tablet] 0.8 mg PO DAILY #30 tablet 08/15 Metoclopramide [Reglan*] 5 mg PO TID #30 tab 12/16/19 Tramadol HCl [Ultram] 50 mg PO Q8HP 10/15/19 Furosemide [Lasix*] 40 mg PO BID 30 Days #60 tab 10/20/19 Hydralazine [Apresoline*] 50 mg PO TID #90 tab 10/20/19 Pantoprazole [Protonix Tab*] 40 mg PO BIDAC #60 tab 10/20/19 New Medications: Metoclopramide [Reglan*] 5 mg PO TID #30 tab Diet: ADA Activity: Ad shena Followup: J Luis Paul MD [ACTIVE - CAN ADMIT] - 1 Week
[2019-10-12 18:04] VITALS: BP 138/73; TEMP 97.5
[2019-10-12 19:58] VITALS: O2SAT 95
== END 2019-10-12 20:15 | disposition home or self-care (01) ==
LOC: ER 17:13 → ERHOLD 19:25 → 4TH 20:57
PROVIDERS: ADMIT Family Medicine; ATTEND Family Medicine
DX: N17.9 Acute kidney failure, unspecified (principal); I13.0 Hypertensive heart and chronic kidney disease with heart failure and stage 1 through stage 4 chronic kidney disease, or unspecified chronic kidney disease; E11.22 Type 2 diabetes mellitus with diabetic chronic kidney disease; E11.65 Type 2 diabetes mellitus with hyperglycemia; N18.4 Chronic kidney disease, stage 4 (severe); I50.32 Chronic diastolic (congestive) heart failure; E11.43 Type 2 diabetes mellitus with diabetic autonomic (poly)neuropathy; K31.84 Gastroparesis; Z23 Encounter for immunization
CPT/HCPCS: 36415; 71045; 78582; 80048; 80076; 81003; 81015; 81025; 82010; 82550; 82553; 82805; 82947; 83690; 83735; 83880; 84145; 84484; 84550; 85025; 85610; 87040; 90471; 90670; 93005; 96372; 96374; 96375; 99285; A9540; A9558; C9113; G0378; J0360; J1650; J1815; J1940; J2405; J2550; J2765; J7030; J7040

== ENCOUNTER 2019-10-15 14:45 | Inpatient (IN) | payer SELFPAY ==
--- OUTSIDE RECORDS SUMMARY | 2019-10-15 14:48 | XMS REPORT ---
:1980 [facility] Address [address] [place] [address] [address] [place] [address] Care Team Providers Name Role Phone Unavailable Unavailable Unavailable Problems This patient has no known problems. Allergies, Adverse Reactions, Alerts This patient has no known allergies or adverse reactions. Medications This patient has no known medications.
[2019-10-15] MEDS ORDERED: ALBUTEROL 2.5 MG/3 ML NEB SOL ONE (15:17)
[2019-10-15] MEDS ORDERED: IPRATROPIUM BROM 0.5MG/2.5ML ONE (15:18)
--- NOTE | 2019-10-15 15:40 | RAD REPORT ---
EXAM DESCRIPTION: RAD - Chest Pa And Lat (2 Views) - 10/15/2019 3:27 pm CLINICAL HISTORY: Cough;Dyspnea Chest pain. COMPARISON: Chest Single View dated 10/11/2019; Chest Single View dated 10/10/2019; Abdomen Acute Se mere dated 10/09/2019; Chest Pa And Lat (2 Views) dated 10/05/2019; Vent Perfusion VQ Scan dated 10/12 FINDINGS: Bibasilar opacities are present suggesting infiltrate/pneumonia. Small to moderate bilater al pleural effusions are seen. Overall, lung aeration has worsened since 10/11/2019. The heart is nor mal in size. No displaced fractures. IMPRESSION: Mild to moderate worsening in lung aeration seen since 10/11/2019.
[2019-10-15 16:26] LABS: Absolute Lymphocytes (CBC) 2.6 K/uL (0.7-4.9); Basophils % 0.4 % (0-1.3); Hematocrit 28.8 % (36.0-45.0); Lymphocytes % 21.2 % (15.3-44.8); MPV 9.9 fL (7.6-11.3); RBC Red Blood Cell Count 3.18 M/uL (3.86-4.86)
--- NOTE | 2019-10-15 16:33 | RAD REPORT ---
EXAM DESCRIPTION: CT - Thorax Wo Con CLINICAL HISTORY: Chest pain PAIN COMPARISON: Chest Pa And Lat (2 Views) dated 10/15/2019 FINDINGS: Ground-glass opacities are present in both upper lobes, greater on the left, mild. Airspac e opacity is present in both lung bases, slightly worse on the right. Moderate bilateral pleural effu sions are noted. No pneumothorax. Trace pericardial fluid is present. No axillary, mediastinal or hilar adenopathy. No lytic or blastic bone lesion. No displaced fracture. Mild anasarca. All CT scans are performed using dose optimization technique as appropriate and may include automated exposure control or mA/KV adjustment according to patient size. IMPRESSION: Moderate bilateral pleural effusions are seen with airspace opacity in both lung bases, greater on the right, likely representing pneumonia/ infiltrate.Mild alveolitis also suspected in bot h upper lobes, greater on the left.
[2019-10-15 16:39] LABS: Potassium 3.8 mmol/L (3.5-5.1)
--- NOTE | 2019-10-15 16:51 | ER ---
Nurse's Notes [facility] Name: Mercedes Marin Age: 39 yrs Sex: Female : 1980 Arrival Date: 10/15/2019 Time: 14:47 Bed 2 Private MD: Diagnosis: Pneumonia, unspecified organism;Pleural effusion, not elsewhere classified;Chronic kidney disease (CKD) Presentation: 10/15 14:54 Transition of care: patient was not received from another setting of care. Risk sv Assessment: Do you want to hurt yourself or someone else? Patient reports no desire to harm self or others. Care prior to arrival: None. 14:54 Method Of Arrival: Wheelchair sv 14:57 Presenting complaint: Patient states: cough and shortness of breath x 2 days. Pt ss reports her breathing has gotten worse today. Onset of symptoms was October 14, 2019. Initial Sepsis Screen: Does the patient meet any 2 criteria? RR > 20 per min. Does the patient have a suspected source of infection? No. Patient's initial sepsis screen is negative. 14:57 Acuity: ALONDRA 3 ss Historical: - Allergies: 14:54 No Known Allergies; sv - PMHx: 14:54 Diabetes - IDDM; Hypertension; Pancreatitis; sv - PSHx: 14:54 Cholecystectomy; sv - Immunization history:: Adult Immunizations up to date. - Social history:: Smoking status: Patient/guardian denies using tobacco. - Ebola Screening: : No symptoms or risks identified at this time. Screenin:53 Abuse screen: Denies threats or abuse. Denies injuries from another. Nutritional sv screening: No deficits noted. Tuberculosis screening: No symptoms or risk factors identified. Fall Risk None identified. Assessment: 15:27 General: Appears in no apparent distress. uncomfortable, well developed, Behavior is sv calm, cooperative, appropriate for age. Pain: Denies pain. Neuro: Level of Consciousness is awake, alert, obeys commands, Oriented to person, place, time, situation, Moves all extremities. Full function Gait is steady. Cardiovascular: Heart tones S1 S2 present Patient's skin is warm and dry. Pulses are palpable in right radial artery and left radial artery Rhythm is sinus tachycardia. Respiratory: Reports shortness of breath cough that is non-productive, dry, persistent Airway is patent Respiratory effort is even, unlabored, Respiratory pattern is regular, symmetrical, Breath sounds are diminished bilaterally. Derm: Skin is pink, warm \T\ dry. Bruising that is on right arm and left arm. Musculoskeletal: Range of motion: intact in all extremities, Swelling present in right eye, left eye, right arm, left arm, right leg and left leg. 16:33 Reassessment: Patient appears in no apparent distress at this time. No changes from sv previously documented assessment. Patient and/or family updated on plan of care and expected duration. Pain level reassessed. Patient is alert, oriented x 3, equal unlabored respirations, skin warm/dry/pink. Inside lab at the bedside to obtain 2nd set of BC. 17:27 Reassessment: Patient appears in no apparent distress at this time. No changes from sv previously documented assessment. Patient and/or family updated on plan of care and expected duration. Pain level reassessed. Patient is alert, oriented x 3, equal unlabored respirations, skin warm/dry/pink. 18:05 Reassessment: Attempted to call report. sv 18:22 Reassessment: Patient appears in no apparent distress at this time. No changes from sv previously documented assessment. Patient and/or family updated on plan of care and expected duration. Pain level reassessed. Patient is alert, oriented x 3, equal unlabored respirations, skin warm/dry/pink. Vital Signs: 14:57 BP 198 / 103; Pulse 103; Resp 22; Pulse Ox 94% on R/A; Weight 65.77 kg; Height 5 ft. 2 ss in. (157.48 cm); Pain 0/10; 15:00 Temp 98.5(O); ss 15:45 BP 196 / 87; Pulse 106; Resp 21; Pulse Ox 100% on Nebulizer Mask; sv 16:26 BP 159 / 79; Pulse 128; Resp 21; Pulse Ox 97% on 2 lpm NC; sv 17:28 BP 159 / 81; Pulse 122; Resp 17; Pulse Ox 96% on 2 lpm NC; sv 18:06 BP 159 / 79; Pulse 116; Resp 16; Pulse Ox 97% on 2 lpm NC; sv 14:57 Body Mass Index 26.52 (65.77 kg, 157.48 cm) ss 15:45 Pt stated she has not taken her BP meds today. sv ED Course: 14:47 Patient arrived in ED. as 14:52 Andrew, Liv, RN is Primary Nurse. sv 14:53 Arm band placed on. sv 14:53 Patient has correct armband on for positive identification. Placed in gown. Bed in low sv position. Call light in reach. Adult w/ patient. Pulse ox on. NIBP on. Door closed. Head of bed elevated. 14:58 Triage completed. ss 15:01 Cynthia Sánchez FNP-C is [facility]. kb 15:01 Adria Corona MD is Attending Physician. kb 15:26 Chest Pa And Lat (2 Views) XRAY In Process Unspecified. EDMS 16:05 Missed attempt(s): 22 gauge in left forearm. Bleeding controlled, band aid applied, sv catheter tip intact. 16:10 First set of blood cultures drawn by me. Inserted saline lock: 24 gauge in right wrist, sv using aseptic technique. ,using aseptic technique. diffusics Blood collected. Flushed right with 5 ml normal saline. 16:21 CT Chest Wo Con In Process Unspecified. EDMS 16:[address] Patient moved back from CT. sv 16:24 Awaiting lab results, Awaiting radiology results. sv 16:47 Second set of blood cultures drawn by lab staff. sv 16:49 Greg Hull is Hospitalizing Provider. kb 17:28 Awaiting bed assignment. sv 18:12 No provider procedures requiring assistance completed. Patient admitted, IV remains in sv place. intact. 19:04 Primary Nurse role handed off by Liv Morales, WALDEMAR sv Administered Medications: 15:30 Drug: DuoNeb (3:1) (2.5 mg - 0.5 mg) 3 ml Route: Nebulizer; sv 16:24 Follow up: Response: No adverse reaction sv 17:27 Drug: LevaQUIN 500 mg Volume: 100 ml; Route: IVPB; Infused Over: 60 mins; Site: right sv wrist; 18:23 Follow up: Response: No adverse reaction; IV Status: Completed infusion; IV Intake: sv 100ml 18:24 Drug: vancoMYCIN 1 grams Route: IVPB; Infused Over: 2 hrs; Site: right wrist; sv 18:24 Follow up: Response: No adverse reaction; IV Status: Infusion continued upon admission sv Intake: 18:23 IV: 100ml; Total: 100ml. sv Outcome: 16:50 Decision to Hospitalize by Provider. kb 18:22 Admitted to [facility] accompanied by tech, family with patient, via wheelchair, room 414, sv with oxygen, with chart, Report called to Helen MEDEIROS 18:22 Condition: stable 18:22 Instructed on the need for admit. 18:25 Patient left the ED. sv Signatures: Dispatcher [employer] EDMS Cynthia Sánchez, Liv Almaguer RN RN sv Martinez, Amelia as Smirch, Shelby, RN RN ss Corrections: (The following items were deleted from the chart) 16:33 15:27 Musculoskeletal: Range of motion: intact in all extremities, sv sv
--- NOTE | 2019-10-15 16:51 | EDPHYS ---
Physician Documentation [facility] Name: Mercedes Marin Age: 39 yrs Sex: Female : 1980 Arrival Date: 10/15/2019 Time: 14:47 Bed 2 Private MD: ED Physician Adria Corona HPI: 10/15 16:53 This 39 yrs old Female presents to ER via Wheelchair with complaints of kb Shortness Of Breath, Cough. 16:53 The patient has shortness of breath at rest. Onset: The symptoms/episode began/occurred kb last week, and became worse last night. Duration: The symptoms are continuous. The patient's shortness of breath is aggravated by nothing, is alleviated by nothing. Associated signs and symptoms: Pertinent positives: chest pain, non-productive cough. Severity of symptoms: At their worst the symptoms were moderate in the emergency department the symptoms are unchanged. The patient has not experienced similar symptoms in the past. The patient has been recently been admitted at [facility], was discharged earlier this week. Pt reports shortness of breath and dry cough that has been progressing since she was discharged on 10/12/19. symptoms worsened last night. Reports she also feels more swollen than she did before. They told her the shortness of breath was due to fluid accumulation. Historical: - Allergies: 14:54 No Known Allergies; sv - PMHx: 14:54 Diabetes - IDDM; Hypertension; Pancreatitis; sv - PSHx: 14:54 Cholecystectomy; sv - Immunization history:: Adult Immunizations up to date. - Social history:: Smoking status: Patient/guardian denies using tobacco. - Ebola Screening: : No symptoms or risks identified at this time. ROS: 16:51 Constitutional: Negative for fever, chills, and weight loss, ENT: Negative for injury, kb pain, and discharge, Neck: Negative for injury, pain, and swelling, Abdomen/GI: Negative for abdominal pain, nausea, vomiting, diarrhea, and constipation, Back: Negative for injury and pain, MS/Extremity: Negative for injury and deformity, Skin: Negative for injury, rash, and discoloration, Neuro: Negative for headache, weakness, numbness, tingling, and seizure. 16:51 Cardiovascular: Positive for chest pain, CP with inspiration, Negative for edema, orthopnea, palpitations, paroxysmal nocturnal dyspnea. 16:51 Respiratory: Positive for cough, with no reported sputum, dyspnea on exertion, pleurisy, shortness of breath, wheezing. Exam: 16:50 Constitutional: This is a well developed, well nourished patient who is awake, alert, kb and in no acute distress. Head/Face: Normocephalic, atraumatic. ENT: Nares patent. No nasal discharge, no septal abnormalities noted. Tympanic membranes are normal and external auditory canals are clear. Oropharynx with no redness, swelling, or masses, exudates, or evidence of obstruction, uvula midline. Mucous membranes moist. Neck: Trachea midline, no thyromegaly or masses palpated, and no cervical lymphadenopathy. Supple, full range of motion without nuchal rigidity, or vertebral point tenderness. No Meningismus. Chest/axilla: Normal chest wall appearance and motion. Nontender with no deformity. No lesions are appreciated. Cardiovascular: Regular rate and rhythm with a normal S1 and S2. No gallops, murmurs, or rubs. Normal PMI, no JVD. No pulse deficits. Abdomen/GI: Soft, non-tender, with normal bowel sounds. No distension or tympany. No guarding or rebound. No evidence of tenderness throughout. Back: No spinal tenderness. No costovertebral tenderness. Full range of motion. Skin: Warm, dry with normal turgor. Normal color with no rashes, no lesions, and no evidence of cellulitis. MS/ Extremity: Pulses equal, no cyanosis. Neurovascular intact. Full, normal range of motion. Neuro: Awake and alert, GCS 15, oriented to person, place, time, and situation. Cranial nerves II-XII grossly intact. Motor strength 5/5 in all extremities. Sensory grossly intact. Cerebellar exam normal. Normal gait. 16:50 Respiratory: the patient does not display signs of respiratory distress, Respirations: normal, Breath sounds: decreased breath sounds, that are moderate, are located in both bases. 16:52 Cardiovascular: Edema: 2+ edema to level of left foot and right foot. kb Vital Signs: 14:57 BP 198 / 103; Pulse 103; Resp 22; Pulse Ox 94% on R/A; Weight 65.77 kg; Height 5 ft. 2 ss in. (157.48 cm); Pain 0/10; 15:00 Temp 98.5(O); ss 15:45 BP 196 / 87; Pulse 106; Resp 21; Pulse Ox 100% on Nebulizer Mask; sv 16:26 BP 159 / 79; Pulse 128; Resp 21; Pulse Ox 97% on 2 lpm NC; sv 17:28 BP 159 / 81; Pulse 122; Resp 17; Pulse Ox 96% on 2 lpm NC; sv 18:06 BP 159 / 79; Pulse 116; Resp 16; Pulse Ox 97% on 2 lpm NC; sv 14:57 Body Mass Index 26.52 (65.77 kg, 157.48 cm) ss 15:45 Pt stated she has not taken her BP meds today. sv MDM: 15:01 Patient medically screened. kb 16:48 Data reviewed: vital signs, nurses notes. Data interpreted: Pulse oximetry: on room air kb is 94 %. Interpretation: acceptable. Counseling: I had a detailed discussion with the patient and/or guardian regarding: the historical points, exam findings, and any diagnostic results supporting the discharge/admit diagnosis, lab results, radiology results, the need for further work-up and treatment in the hospital. Physician consultation: Greg Hull was contacted at 16:49, regarding admission, to the medical/surgical unit. patient's condition, and will see patient in ED, shortly. 16:51 Data reviewed: I have discussed the patient's presentation/case with the attending Emergency Department Physician;. 16:52 ED course: Previous admission reports reviewed. VQ scan negative. No pneumonia noted on last CXR on 10/11/19. . 10/15 15:10 Order name: Flu; Complete Time: 16:05 kb 10/15 15:46 Order name: CBC with Diff; Complete Time: 16:33 kb 10/15 15:46 Order name: Basic Metabolic Panel; Complete Time: 16:44 kb 10/15 15:46 Order name: Lactate; Complete Time: 16:44 kb 10/15 15:46 Order name: Procalcitonin; Complete Time: 17:18 kb 10/15 15:46 Order name: Blood Culture Adult (2) 10/15 15:10 Order name: Chest Pa And Lat (2 Views) XRAY; Complete Time: 15:44 kb 10/15 15:46 Order name: IV Start; Complete Time: 16:24 kb 10/15 15:55 Order name: EKG Electrocardiogram; Complete Time: 16:34 EDMS 10/15 16:05 Order name: CT Chest Wo Con; Complete Time: 16:41 kb 10/15 16:25 Order name: EKG - Nurse/Tech; Complete Time: 16:32 sv Administered Medications: 15:30 Drug: DuoNeb (3:1) (2.5 mg - 0.5 mg) 3 ml Route: Nebulizer; sv 16:24 Follow up: Response: No adverse reaction sv 17:27 Drug: LevaQUIN 500 mg Volume: 100 ml; Route: IVPB; Infused Over: 60 mins; Site: right sv wrist; 18:23 Follow up: Response: No adverse reaction; IV Status: Completed infusion; IV Intake: sv 100ml 18:24 Drug: vancoMYCIN 1 grams Route: IVPB; Infused Over: 2 hrs; Site: right wrist; sv 18:24 Follow up: Response: No adverse reaction; IV Status: Infusion continued upon admission sv Disposition: 18:40 Co-signature as Attending Physician, Adria Corona MD. rn Disposition: 10/15/19 16:50 Hospitalization ordered by Greg Hull for Inpatient Admission. Preliminary diagnosis are Pneumonia, unspecified organism, Pleural effusion, not elsewhere classified, Chronic kidney disease (CKD). - Bed requested for Telemetry/MedSurg (Inpatient). - Status is Inpatient Admission. sv - Condition is Stable. - Problem is an ongoing problem. - Symptoms have worsened. UTI on Admission? No Signatures: Dispatcher [employer] [facility] Cynthia Sánchez, STENOGRAPHER SECRETARY-C STENOGRAPHER SECRETARY-Liv Metzger RN RN Adria Corona MD MD rn Martinez, Eric [facility] Marbella Allen RN RN Corrections: (The following items were deleted from the chart) 16:52 16:50 Constitutional: This is a well developed, well nourished patient who is awake, kb alert, and in no acute distress. Head/Face: Normocephalic, atraumatic. ENT: Nares patent. No nasal discharge, no septal abnormalities noted. Tympanic membranes are normal and external auditory canals are clear. Oropharynx with no redness, swelling, or masses, exudates, or evidence of obstruction, uvula midline. Mucous membranes moist. Neck: Trachea midline, no thyromegaly or masses palpated, and no cervical lymphadenopathy. Supple, full range of motion without nuchal rigidity, or vertebral point tenderness. No Meningismus. Chest/axilla: Normal chest wall appearance and motion. Nontender with no deformity. No lesions are appreciated. Cardiovascular: Regular rate and rhythm with a normal S1 and S2. No gallops, murmurs, or rubs. Normal PMI, no JVD. No pulse deficits. Abdomen/GI: Soft, non-tender, with normal bowel sounds. No distension or tympany. No guarding or rebound. No evidence of tenderness throughout. Back: No spinal tenderness. No costovertebral tenderness. Full range of motion. Skin: Warm, dry with normal turgor. Normal color with no rashes, no lesions, and no evidence of cellulitis. MS/ Extremity: Pulses equal, no cyanosis. Neurovascular intact. Full, normal range of motion. Neuro: Awake and alert, GCS 15, oriented to person, place, time, and situation. Cranial nerves II-XII grossly intact. Motor strength 5/5 in all extremities. Sensory grossly intact. Cerebellar exam normal. Normal gait. kb 17:46 16:50 Hospitalization Ordered by Greg Hull for Inpatient Admission. Preliminary em1 diagnosis is Pneumonia, unspecified organism; Pleural effusion, not elsewhere classified; Chronic kidney disease (CKD). Bed requested for Telemetry/MedSurg (Inpatient). Status is Inpatient Admission. Condition is Stable. Problem is an ongoing problem. Symptoms have worsened. UTI on Admission? No. kb 18:25 17:46 10/15/2019 16:50 Hospitalization Ordered by Greg Hull for Inpatient sv Admission. Preliminary diagnosis is Pneumonia, unspecified organism; Pleural effusion, not elsewhere classified; Chronic kidney disease (CKD). Bed requested for Telemetry/MedSurg (Inpatient). Status is Inpatient Admission. Condition is Stable. Problem is an ongoing problem. Symptoms have worsened. UTI on Admission? No. em1
[2019-10-15] MEDS ORDERED: Levofloxacin500mg IV 500 MG/100 ML BAG IV ONE (17:24)
--- NOTE | 2019-10-15 17:31 | P.HP ---
Certification for Inpatient Patient admitted to: Inpatient With expected LOS: >2 Midnights Practitioner: I am a practitioner with admitting privileges, knowledge of patient current condition, hospital course, and medical plan of care. Services: Services provided to patient in accordance with Admission requirements found in Title 42 Section 412.3 of the Code of Federal Regulations Patient History Date of Service: 10/15/19 Reason for admission: Shortness of breath History of Present Illness: 39-year-old Danish-speaking woman with a history of insulin-dependent diabetes , chronic kidney disease stage 3 and nephrotic range proteinuria presented emergency department with a complaint of progressive shortness of breath since discharge from hospitalization 3 days ago. The patient has been hospitalized multiple times for intractable nausea and vomiting. She was considered to be dehydrated during the most recent hospitalization, in which her Lasix was held and patient treated with IV fluids for acute on chronic renal failure. Her renal function improved to baseline and patient was discharged to continue taking her usual home dose Lasix. The patient returns to the ED with the complaint of shortness of breath, coughing and wheezing and increased edema in her lower extremities. CT chest done in the ED report bilateral pleural effusion and bilateral opacities suggestive of pneumonia. Her lower extremities and noted to be quite edematous. She is not hypoxic. She has mild leukocytosis and anemic. Patient is admitted for further management of anasarca and possible pneumonia. Allergies No Known Allergies Allergy (Verified 10/03/19 01:50) Home Medications: Metoprolol Tartrate 100 mg PO BID #60 tablet 06/10/19 Insulin NPH Hum/Reg Insulin Hm [Novolin 70-30 100 Unit/ml Vial] 10 unit SQ BID 06/15/19 Ergocalciferol (Vitamin D2) [Vitamin D2] 1 cap PO SEECOM 10/03/19 Amlodipine Besylate [Norvasc] 10 mg PO DAILY #30 tablet 10/06/19 Folic Acid/Vit B Complex and C [Sienna-Gissel Tablet] 0.8 mg PO DAILY #30 tablet 08/15 Pantoprazole [Protonix Tab*] 40 mg PO ACB #30 tab 10/06/19 Furosemide [Lasix] 40 mg PO DAILY 30 Days #30 tab 10/12/19 Metoclopramide [Reglan] 5 mg PO TID #30 tab 10/12/19 - Past Medical/Surgical History Diabetic: Yes -: Diabetes mellitus type 2, insulin dependent -: Hypertension -: Chronic kidney disease stage 4 -: Diabetic nephropathy -: GERD with hiatal hernia -: Chronic nausea and vomiting -: Chronic anemia with Iron/B12 deficiency -: History of pancreatitis -: Chronic diastolic CHF -: Pancreatic pseudocystectomy -: Appendectomy -: Cholecystectomy Psychosocial/ Personal History: Patient is - Family History Mother -: Heart disease, Diabetes - Social History Alcohol use: No CD- Drugs: No Caffeine use: No Review of Systems Other: General: No fever, no malaise, no unintentional weight loss. Eyes: No eye discharge, CVS: No chest pain, no palpitation, no lightheadedness. GI: No abdominal pain, no nausea no vomit, no constipation, no diarrhea. Genitourinary: No dysuria, no urinary frequency, no incontinence, no hematuria. Musculoskeletal: No joint pains, or joint swelling, no gait instability. Neurology: No headache, no asymmetric, weakness, no problem with swallowing. Except as documented, all other systems reviewed and negative. Physical Examination - Physical Exam General: Alert, In no apparent distress, Oriented x3 HEENT: Mucous membr. moist/pink, Sclerae nonicteric Neck: Supple, JVD distended Respiratory: Diminished (Diminished more on the right), Crackles/rales ( Bilateral crackles) Cardiovascular: Normal pulses, Other (Tachycardic), Edema (3+ bilateral lower extremity edema) Gastrointestinal: Soft and benign, Non-distended, No tenderness Musculoskeletal: No erythema Integumentary: No rashes, No erythema Neurological: Normal speech, Normal strength at 5/5 x4 extr - Studies Laboratory Data (last 24 hrs) 10/15/19 16:10: Sodium 138, Potassium 3.8, BUN 31 H, Creatinine 2.15 H, Glucose 304 H 10/15/19 16:10: WBC 12.1 H, Hgb 9.4 L, Hct 28.8 L, Plt Count 229 Microbiology Data (last 24 hrs): 10/15/19 15:30 Nasopharnyx Influenza Type A Antigen Screen - Final 10/15/19 15:30 Nasopharnyx Influenza Type B Antigen Screen - Final Assessment and Plan - Problems (Diagnosis) (1) Anasarca associated with disorder of kidney Current Visit: Yes Status: Acute (2) Pleural effusion Current Visit: Yes Status: Acute (3) Pneumonia Current Visit: Yes Status: Acute (4) Chronic kidney disease, stage 3 Current Visit: Yes Status: Acute (5) Anemia Onset Date: 05/14/16 Current Visit: No Status: Acute (6) Insulin dependent diabetes mellitus Current Visit: No Status: Acute (7) Uncontrolled hypertension Current Visit: Yes Status: Acute - Plan Admit to medical floor. Will start aggressive diuresis with IV Lasix Aggressive blood pressure control. Monitor renal function. Check albumin level Intermittent albumin infusion as needed. Consulted Nephrology to assist with management IV Rocephin and Zithromax for possible pneumonia Follow blood cultures Oxygen as needed Insulin sliding scale for glucose management Monitor CBC to follow hemoglobin level. Transfuse p.r.n. for hemoglobin less than 8. - Advance Directives Does patient have a Living Will: No Does patient have a Durable POA for Healthcare: No
[2019-10-15] MEDS ORDERED: VANCOMYCIN/NS 1 gm 1 GM/250 ML BAG IV ONE (18:00)
[2019-10-15] MEDS ORDERED: POTASSIUM CL SA 10 MEQ TAB PO ONE (18:30)
[2019-10-15] MEDS: ENOXAPARIN 30 MG/0.3 ML SQ SCH (18:47)
[2019-10-15] MEDS: METOPROLOL XL 100 MG TAB PO SCH (18:48)
[2019-10-15] MEDS ORDERED: GLUCAGON 1 MG/VIAL IM PRN ×2 (18:53)
[2019-10-15] MEDS ORDERED: D50W 25 GM/50 ML SYRINGE/VIAL IV PRN ×2 (18:53)
[2019-10-15] MEDS: INSULIN -REGULAR HUMAN 50 UNIT/0.5 ML ML SQ ONE ×2 (19:01→19:02)
[2019-10-15] MEDS: IPRATROPIUM BROM 0.5MG/2.5ML NEB SCH (19:50)
[2019-10-15] MEDS: ALBUTEROL 2.5 MG/3 ML NEB SOL NEB SCH (19:50)
[2019-10-15] MEDS: INSULIN -REGULAR HUMAN 50 UNIT/0.5 ML ML SQ SCH (21:00)
[2019-10-15] MEDS: AZITHROMYCIN IV 500 MG in NA CHLORIDE 0.9% 250 ML IVPB SCH (21:00)
[2019-10-15] MEDS: CEFTRIAXONE/SWI 1gm 1 GM/10 ML SYR IVP SCH (21:00)
[2019-10-15] MEDS ORDERED: GUAIFENESIN/CODEINE 5ML UCUP PO PRN (23:04)
[2019-10-15] MEDS: ONDANSETRON 4 MG/2 ML VIAL IV PRN (23:07)
[2019-10-16] MEDS: IPRATROPIUM BROM 0.5MG/2.5ML NEB SCH ×4 (01:55→20:00)
[2019-10-16] MEDS: ALBUTEROL 2.5 MG/3 ML NEB SOL NEB SCH ×4 (01:55→20:00)
[2019-10-16] MEDS: METOPROLOL XL 100 MG TAB PO SCH ×2 (06:00→17:15)
[2019-10-16 06:11] LABS: Magnesium 1.8 mg/dL (1.8-2.4)
[2019-10-16 06:49] LABS: Absolute Lymphocytes (CBC) 0.6 K/uL (0.7-4.9); Basophils % 0.5 % (0-1.3); RBC Red Blood Cell Count 2.69 M/uL (3.86-4.86)
[2019-10-16 06:52] LABS: Hematocrit 23.5 % (36.0-45.0); Lymphocytes % 6.8 % (15.3-44.8)
[2019-10-16] MEDS: INSULIN -REGULAR HUMAN 50 UNIT/0.5 ML ML SQ SCH ×4 (07:30→20:31)
[2019-10-16] MEDS: ONDANSETRON 4 MG/2 ML VIAL IV PRN ×2 (08:22→16:22)
[2019-10-16] MEDS: FUROSEMIDE 40 MG/4 ML VIAL IV SCH ×2 (08:22→16:31)
[2019-10-16] MEDS: CEFTRIAXONE/SWI 1gm 1 GM/10 ML SYR IVP SCH (08:22)
[2019-10-16] MEDS: ENOXAPARIN 30 MG/0.3 ML SQ SCH (08:22)
[2019-10-16] MEDS: AZITHROMYCIN IV 500 MG in NA CHLORIDE 0.9% 250 ML IVPB SCH (08:23)
[2019-10-16] MEDS: AMLODIPINE 10 MG TAB PO SCH (08:24)
[2019-10-16] MEDS ORDERED: MAGNESIUM SULFATE 1 gm IVPB 1 GM/100 ML BAG IV ONE (09:00)
[2019-10-16] MEDS ORDERED: METOCLOPRAMIDE 10 MG/2mL INJ IV PRN (09:48)
--- NOTE | 2019-10-16 13:21 | P.CNS ---
Date of Consult: 10/16/19 Reason for Consult: CKD , edema Chief Complaint: Shortness of breath History of Present Illness: A 39 y/o woman with PMHx oF IDDM with retinopathy and nephropathy , anemia of chronic disease, and HTN pt was admitted recently for nausea and vomiting and GUS, started on IVF and her Cr improved from 2.6 to 2.0 pt now presented with SOB , CT scan with Pleural effusion Serology W/u in the past including GABRIELLE, ANCA, C3,C4, hep panel, and HIV were all negative pt also noticed to have extremity edema still have nausea and vomiting, no constipation or diarrhea , chest pain or palpitation Allergies No Known Allergies Allergy (Verified 10/15/19 20:41) Home Medications: Metoprolol Tartrate 100 mg PO BID #60 tablet 06/10/19 Insulin NPH Hum/Reg Insulin Hm [Novolin 70-30 100 Unit/ml Vial] 10 unit SQ BID 06/15/19 Ergocalciferol (Vitamin D2) [Vitamin D2] 1 cap PO SEECOM 10/03/19 Amlodipine Besylate [Norvasc] 10 mg PO DAILY #30 tablet 10/06/19 Folic Acid/Vit B Complex and C [Sienna-Gissel Tablet] 0.8 mg PO DAILY #30 tablet 08/15 Pantoprazole [Protonix Tab*] 40 mg PO ACB #30 tab 10/06/19 Furosemide [Lasix] 40 mg PO DAILY 30 Days #30 tab 10/12/19 Metoclopramide [Reglan] 5 mg PO TID #30 tab 10/12/19 Tramadol HCl [Ultram] 50 mg PO Q8HP 10/15/19 - Past Medical/Surgical History Diabetic: Yes -: Diabetes mellitus type 2, insulin dependent -: Hypertension -: Chronic kidney disease stage 4 -: Diabetic nephropathy -: GERD with hiatal hernia -: Chronic nausea and vomiting -: Chronic anemia with Iron/B12 deficiency -: History of pancreatitis -: Chronic diastolic CHF -: Pancreatic pseudocystectomy -: Appendectomy -: Cholecystectomy Psychosocial/ Personal History: Patient is - Family History Mother Medical History: Heart disease, Diabetes - Social History Smoking Status: Never smoker Alcohol use: No CD- Drugs: No Caffeine use: No Place of Residence: Home Physical Examination Temp Pulse Resp BP Pulse Ox 97.5 F 95 H 17 148/74 H 0 L 10/16/19 12:00 10/16/19 12:00 10/16/19 12:00 10/16/19 12:00 10/16/19 12:00 General: Oriented x3, Mild distress HEENT: Atraumatic Neck: Supple, Without JVD or thyroid abnormality Respiratory: Diminished Cardiovascular: Regular rate/rhythm, Normal S1 S2, No gallops, No rubs, No murmurs, Edema Gastrointestinal: Normal bowel sounds, Soft and benign Musculoskeletal: Swelling Laboratory Data (last 24 hrs) 10/15/19 16:10: Sodium 138, Potassium 3.8, BUN 31 H, Creatinine 2.15 H, Glucose 304 H 10/15/19 16:10: WBC 12.1 H, Hgb 9.4 L, Hct 28.8 L, Plt Count 229 Conclusions/Impression: CKD III proteinuric baseline Cr ~2.0 due to DM and HTN nephrosclerosis serology W/U in the past including GABRIELLE, ANCA, C3, C4, Hep panel and HIV all negative will send for UA, 24urine prot, Cr will send for SPEP avoid NSAID and contrast Anasarca pt is proteinuric serology w/u was -ve will check TSH TTE will consider to Dc amlodipine IDDM as per primary team HTN Bp elevated will cont lasix if no improvement then will add hydralazine recurrent Nausea and vomiting likely due to gastroparesis Cont metoloperamide PNA cont Abx
--- NOTE | 2019-10-16 15:56 | P.PN ---
Subjective Date of Service: 10/16/19 Chief Complaint: Shortness of breath Patient had been diuresis well. Her leg edema have improved. The blood pressures intermittently elevated. She reports nausea and vomiting. Physical Examination - Vital Signs Temperature: 97.5 F Blood Pressure: 148/74 Pulse: 95 Respirations: 17 Pulse Ox (%): 0 - Physical Exam General: Alert, In no apparent distress, Oriented x3 HEENT: Mucous membr. moist/pink Neck: JVD not distended Respiratory: Clear to auscultation bilaterally, Normal air movement Cardiovascular: Regular rate/rhythm, Normal S1 S2, Edema (1+ bilateral lower extremity pitting edema) Gastrointestinal: Soft and benign, No tenderness Musculoskeletal: No erythema Integumentary: No erythema Neurological: Normal speech, Normal strength at 5/5 x4 extr - Studies Laboratory Data (last 24 hrs) 10/15/19 16:10: Sodium 138, Potassium 3.8, BUN 31 H, Creatinine 2.15 H, Glucose 304 H 10/15/19 16:10: WBC 12.1 H, Hgb 9.4 L, Hct 28.8 L, Plt Count 229 Microbiology Data (last 24 hrs): 10/15/19 16:46 Blood - Blood Anaerobic Blood Culture - Final 10/15/19 15:30 Nasopharnyx Influenza Type A Antigen Screen - Final 10/15/19 15:30 Nasopharnyx Influenza Type B Antigen Screen - Final Assessment And Plan - Current Problems (Diagnosis) (1) Anasarca associated with disorder of kidney Current Visit: Yes Status: Acute (2) Pleural effusion Current Visit: Yes Status: Acute (3) Pneumonia Current Visit: Yes Status: Acute (4) Chronic kidney disease, stage 3 Current Visit: Yes Status: Acute (5) Anemia Onset Date: 05/14/16 Current Visit: No Status: Acute (6) Insulin dependent diabetes mellitus Current Visit: No Status: Acute (7) Uncontrolled hypertension Current Visit: Yes Status: Acute (8) Gastroparesis Current Visit: Yes Status: Acute - Plan Continue IV Lasix. Input and output charting. Aggressive blood pressure control. Add hydralazine p.r.n. for BP spikes Monitor renal function. Intermittent albumin infusion as needed. Nephrology input appreciated Continue IV Rocephin and Zithromax for possible pneumonia Follow blood cultures Oxygen as needed Insulin sliding scale for glucose management Monitor CBC to follow hemoglobin level. Transfuse p.r.n. for hemoglobin less than 8.
--- NOTE | 2019-10-16 16:37 | EKG ---
Test Date: 2019-10-15 Test Time: 14:57:52 Trencher Driver: SAAD MEASUREMENT RESULTS: Intervals: Rate: 101 VA: 136 QRSD: 62 QT: 338 QTc: 438 Mission: P: 44 VA: 136 QRS: 1 T: 94 INTERPRETIVE STATEMENTS: Sinus tachycardia Low voltage QRS Cannot rule out Anterior infarct, age undetermined Abnormal ECG Compared to ECG 10/10/2019 17:55:16 No significant changes Electronically Signed On 10-16-19 16:34:11 RF ENGINEER by Marquez Walter
[2019-10-16 16:54] LABS: Urine Appearance CLEAR; Urine Bilirubin NEGATIVE (NEG); Urine Blood 1+ (NEG); Urine Color YELLOW; Urine Glucose TRACE (NEG); Urine Protein 2+ (NEG); Urine Urobilinogen 0.2 mg/dL (0.2-1.0); Urine pH 5.5 (5.0-7.0)
[2019-10-16 17:01] LABS: Urine Protein/Creatinine Ratio 5.09 ratio (<0.15)
[2019-10-16 17:20] LABS: Urine Microscopic Reflex ORDER UMIC
[2019-10-16 17:22] LABS: Urine Bacteria <20 /HPF (<20); Urine Culture Reflex Order NOT NEEDED; Urine Mucus 1+ /HPF (NONE SEEN)
[2019-10-16] MEDS: PROMETHAZINE INJ 25 MG/ML AMP IV PRN (18:31)
[2019-10-16] MEDS ORDERED: LORazepam 2 MG/ML VIAL IV ONE (22:50)
[2019-10-16] MEDS ORDERED: ONDANSETRON 4 MG/2 ML VIAL IV ONE (22:50)
[2019-10-16] MEDS ORDERED: NA CHLORIDE 0.9% 250 ML IV ONE (22:51)
[2019-10-17] MEDS: ALBUTEROL 2.5 MG/3 ML NEB SOL NEB SCH ×4 (01:40→20:55)
[2019-10-17] MEDS: IPRATROPIUM BROM 0.5MG/2.5ML NEB SCH ×4 (01:40→20:55)
[2019-10-17] MEDS: PROMETHAZINE INJ 25 MG/ML AMP IV PRN (05:00)
[2019-10-17] MEDS: METOPROLOL XL 100 MG TAB PO SCH ×2 (05:17→16:59)
[2019-10-17 05:46] LABS: Phosphorus 3.7 mg/dL (2.5-4.9); Potassium 3.6 mmol/L (3.5-5.1)
[2019-10-17 05:54] LABS: Absolute Lymphocytes (CBC) 0.7 K/uL (0.7-4.9); Basophils % 0.3 % (0-1.3); Hematocrit 22.6 % (36.0-45.0); Lymphocytes % 5.5 % (15.3-44.8); MPV 10.6 fL (7.6-11.3); RBC Red Blood Cell Count 2.53 M/uL (3.86-4.86)
[2019-10-17 06:47] LABS: Blood Morphology Comment NOT SEEN (NOT SEEN); Platelet Estimate ADEQ; Urine White Blood Cell Casts OK
[2019-10-17] MEDS: INSULIN -REGULAR HUMAN 50 UNIT/0.5 ML ML SQ SCH ×4 (07:30→20:18)
[2019-10-17] MEDS: AZITHROMYCIN IV 500 MG in NA CHLORIDE 0.9% 250 ML IVPB SCH ×2 (09:00→09:38)
[2019-10-17] MEDS: CEFTRIAXONE/SWI 1gm 1 GM/10 ML SYR IVP SCH (09:29)
[2019-10-17] MEDS: ENOXAPARIN 30 MG/0.3 ML SQ SCH (09:29)
[2019-10-17] MEDS: FUROSEMIDE 40 MG/4 ML VIAL IV SCH ×2 (09:30→16:54)
[2019-10-17] MEDS: AMLODIPINE 10 MG TAB PO SCH (09:30)
[2019-10-17] MEDS: METOCLOPRAMIDE 10 MG/2mL INJ IV PRN (09:38)
--- NOTE | 2019-10-17 11:52 | P.PN ---
Subjective Date of Service: 10/17/19 Chief Complaint: Shortness of breath Patient states her nausea is better today. Her anasarca is also improving. Blood pressure readings have better compared to yesterday. Physical Examination - Vital Signs Temperature: 99.9 F Blood Pressure: 156/79 Pulse: 96 Respirations: 15 Pulse Ox (%): 94 - Physical Exam General: Alert, In no apparent distress HEENT: Mucous membr. moist/pink Neck: JVD not distended Respiratory: Clear to auscultation bilaterally, Normal air movement Cardiovascular: Regular rate/rhythm, Normal S1 S2, Edema (1+ bilateral lower extremity) Gastrointestinal: Soft and benign, No tenderness Neurological: Normal speech, Normal strength at 5/5 x4 extr - Studies Microbiology Data (last 24 hrs): 10/15/19 16:46 Blood - Blood Anaerobic Blood Culture - Final Assessment And Plan - Current Problems (Diagnosis) (1) Anasarca associated with disorder of kidney Current Visit: Yes Status: Acute (2) Pleural effusion Current Visit: Yes Status: Acute (3) Pneumonia Current Visit: Yes Status: Acute (4) Chronic kidney disease, stage 3 Current Visit: Yes Status: Acute (5) Anemia Onset Date: 05/14/16 Current Visit: No Status: Acute (6) Insulin dependent diabetes mellitus Current Visit: No Status: Acute (7) Uncontrolled hypertension Current Visit: Yes Status: Acute (8) Gastroparesis Current Visit: Yes Status: Acute - Plan Continue Lasix. Input and output charting. Aggressive blood pressure control. Add Hydralazine TID. Monitor renal function. Intermittent albumin infusion as needed. Nephrology is assisting with managed Continue IV Rocephin and Zithromax. Follow blood cultures Oxygen as needed Insulin sliding scale for glucose management Transfuse 1 unit PRBC Monitor CBC to follow hemoglobin level.
--- NOTE | 2019-10-17 13:08 | P.PN ---
Subjective Date of Service: 10/17/19 Chief Complaint: Shortness of breath pt with HX DM with neuropathy, retinopathy and gastroparesis, HTN admitted or SOB , found to have b/l pleural effusion started on lasix Today feels better good UO acute anemia , plan for 1 PRBC, will send for W/U pt CXR omorrow cont diuretics Physical Examination - Vital Signs Temperature: 99.9 F Blood Pressure: 156/79 Pulse: 96 Respirations: 15 Pulse Ox (%): 94 - Physical Exam General: In no apparent distress, Oriented x3 HEENT: Atraumatic, EOMI Neck: Supple, JVD not distended, No Thyromegaly, Without JVD or thyroid abnormality Respiratory: Clear to auscultation bilaterally, Normal air movement, Other (No rales or wheezes ) Cardiovascular: No edema, Regular rate/rhythm, Normal S1 S2, No gallops, No rubs , No murmurs Gastrointestinal: Normal bowel sounds, Soft and benign, Non-distended Musculoskeletal: No swelling Integumentary: No rashes Neurological: Normal gait, Normal speech - Studies Microbiology Data (last 24 hrs): 10/15/19 16:46 Blood - Blood Anaerobic Blood Culture - Final Assessment And Plan - Plan CKD III proteinuric baseline Cr ~2.0 due to DM and HTN nephrosclerosis serology W/U in the past including GABRIELLE, ANCA, C3, C4, Hep panel and HIV all negative will send for UA, 24urine prot, Cr will send for SPEP avoid NSAID and contrast Anasarca pt is proteinuric serology w/u was -ve will check TSH TTE will consider to Dc amlodipine IDDM as per primary team Acute on chronic anemia possibly due to eva Rasmussen tear PPI will send for W/u plan for 1 PRBC HTN Bp better controlled today will cont lasix will consider to switch hydralazin with amlodipine recurrent Nausea and vomiting likely due to gastroparesis Cont metolcoperamide PNA cont Abx
[2019-10-17] MEDS ORDERED: SODIUM CHLORIDE 0.9% 10ML INJ IV PRN (13:11)
[2019-10-17] MEDS ORDERED: POTASSIUM CL SA 10 MEQ TAB PO ONE (16:00)
[2019-10-18] MEDS: PANTOPRAZOLE 40 MG INJ IVP SCH ×3 (00:31→21:16)
[2019-10-18] MEDS: ALBUTEROL 2.5 MG/3 ML NEB SOL NEB SCH ×4 (02:00→19:25)
[2019-10-18] MEDS: IPRATROPIUM BROM 0.5MG/2.5ML NEB SCH ×4 (02:00→19:25)
[2019-10-18] MEDS ORDERED: NA CHLORIDE 0.9% 250 ML ONE (02:09)
[2019-10-18] MEDS: METOPROLOL XL 100 MG TAB PO SCH ×2 (05:14→17:02)
[2019-10-18] MEDS: INSULIN -REGULAR HUMAN 50 UNIT/0.5 ML ML SQ SCH ×4 (07:30→21:16)
[2019-10-18 08:20] LABS: Absolute Lymphocytes (CBC) 0.9 K/uL (0.7-4.9); Basophils % 0.8 % (0-1.3); Hematocrit 27.3 % (36.0-45.0); Lymphocytes % 11.9 % (15.3-44.8); MPV 10.2 fL (7.6-11.3); RBC Red Blood Cell Count 3.07 M/uL (3.86-4.86)
[2019-10-18] MEDS: PROMETHAZINE INJ 25 MG/ML AMP IV PRN ×2 (09:00→17:10)
[2019-10-18 09:18] LABS: Magnesium 1.9 mg/dL (1.8-2.4); Phosphorus 3.9 mg/dL (2.5-4.9); Potassium 3.8 mmol/L (3.5-5.1)
[2019-10-18] MEDS: ENOXAPARIN 30 MG/0.3 ML SQ SCH (09:30)
[2019-10-18] MEDS: FUROSEMIDE 40 MG/4 ML VIAL IV SCH ×2 (09:30→17:00)
[2019-10-18] MEDS: CEFTRIAXONE/SWI 1gm 1 GM/10 ML SYR IVP SCH (09:30)
[2019-10-18] MEDS: AZITHROMYCIN IV 500 MG in NA CHLORIDE 0.9% 250 ML IVPB SCH (09:30)
[2019-10-18] MEDS: AMLODIPINE 10 MG TAB PO SCH (09:30)
--- NOTE | 2019-10-18 09:46 | RAD REPORT ---
EXAM DESCRIPTION: RAD - Chest Single View - 10/18/2019 9:16 am CLINICAL HISTORY: F/u for pulmonary edema Chest pain. COMPARISON: Chest Single View dated 10/17/2019; Chest Pa And Lat (2 Views) dated 10/15/2019; Chest S dony View dated 10/11/2019; Chest Single View dated 10/10/2019 FINDINGS: Portable technique limits examination quality. Mild interstitial pulmonary edema with bibasilar lung opacities and small bilateral pleural effusions noted, unchanged. The heart is mildly enlarged in size. Right-sided PICC line has tip in the SVC. IMPRESSION: Stable chest since 10/17/2019.
--- NOTE | 2019-10-18 10:22 | P.PN ---
Subjective Date of Service: 10/18/19 Chief Complaint: Shortness of breath Subjective: Improving pt with HX DM with neuropathy, retinopathy and gastroparesis, HTN admitted or SOB , found to have b/l pleural effusion started on lasix Today feels better Hb improv to 9.1 after 1 PRBC C slightly elevated still have Rt rales on exam , CXR with improvement edema near resolved will reduce lasix to once daily tomorrow Physical Examination - Vital Signs Temperature: 98.7 F Blood Pressure: 180/86 Pulse: 89 Respirations: 23 Pulse Ox (%): 95 - Physical Exam General: In no apparent distress HEENT: Atraumatic, Normocephalic, EOMI Neck: Supple, Without JVD or thyroid abnormality Respiratory: Normal air movement, Crackles/rales Cardiovascular: Normal pulses, Regular rate/rhythm, Normal S1 S2, No gallops, No rubs, No murmurs, Edema (trace edema ) Gastrointestinal: Normal bowel sounds, Soft and benign, Non-distended, No ascites, No tenderness, No masses Musculoskeletal: No swelling, No erythema, No tenderness Neurological: Normal speech, Normal tone Assessment And Plan - Plan CKD III proteinuric baseline Cr ~2.0 due to DM and HTN nephrosclerosis serology W/U in the past including GABRIELLE, ANCA, C3, C4, Hep panel and HIV all negative F/U , 24urine prot, Cr F/U SPEP/ UPEP avoid NSAID and contrast Anasarca pt is proteinuric serology w/u was -ve F/U TSH IDDM as per primary team Acute on chronic anemia possibly due to eva Rasmussen tear PPI will send for W/u plan for 1 PRBC HTN elevated today will cont lasix will add hydralazine recurrent Nausea and vomiting likely due to gastroparesis Cont metolcoperamide PNA cont Abx
--- NOTE | 2019-10-18 11:14 | P.PN ---
Subjective Date of Service: 10/18/19 Chief Complaint: Shortness of breath Patient reports the nausea has significantly improved and she is now eating more. Her blood pressure remained moderately elevated. Her anasarca is also improving. The leg edema has resolved. Status post PRBC transfusion yesterday. Physical Examination - Vital Signs Temperature: 98.7 F Blood Pressure: 180/86 Pulse: 89 Respirations: 23 Pulse Ox (%): 95 - Physical Exam General: Alert, In no apparent distress, Oriented x3 HEENT: Mucous membr. moist/pink Neck: Supple, JVD not distended Respiratory: Clear to auscultation bilaterally, Normal air movement Cardiovascular: No edema, Regular rate/rhythm, Normal S1 S2 Gastrointestinal: Soft and benign, No tenderness Musculoskeletal: No swelling Assessment And Plan - Current Problems (Diagnosis) (1) Anasarca associated with disorder of kidney Current Visit: Yes Status: Acute (2) Pleural effusion Current Visit: Yes Status: Acute (3) Pneumonia Current Visit: Yes Status: Acute (4) Chronic kidney disease, stage 3 Current Visit: Yes Status: Chronic (5) Anemia Onset Date: 05/14/16 Current Visit: No Status: Acute (6) Insulin dependent diabetes mellitus Current Visit: No Status: Acute (7) Uncontrolled hypertension Current Visit: Yes Status: Acute (8) Gastroparesis Current Visit: Yes Status: Acute - Plan Status post PRBC transfusion. The patient is diuresing well. Creatinine increased slightly to 2.3. Continue Lasix. Input and output charting. Hydralazine TID added to control her blood pressure. Monitor renal function. Intermittent albumin infusion as needed. Nephrology is assisting with management Continue IV antibiotics for pneumonia. Blood cultures: No growth to date. Oxygen as needed Insulin sliding scale for glucose management. Resume Novolin 70/30 once her oral intake has significantly improved. Continue Reglan with meals.
[2019-10-18 11:51] LABS: Transferrin 170 mg/dL (200-360)
[2019-10-18 11:52] LABS: Ferritin 14.8 ng/mL (8-388); Folic Acid, (Folate) 17.9 ng/mL (3.1-17.5)
[2019-10-18] MEDS: METOCLOPRAMIDE 10 MG/2mL INJ IV PRN (11:59)
[2019-10-18] MEDS: MULTIVITAMINS,THERAPEUT 1 TAB PO SCH (11:59)
[2019-10-18] MEDS: HYDRALAZINE HCL 25 MG TABLET PO SCH ×3 (11:59→21:17)
[2019-10-19] MEDS: ALBUTEROL 2.5 MG/3 ML NEB SOL NEB SCH ×4 (01:20→19:35)
[2019-10-19] MEDS: IPRATROPIUM BROM 0.5MG/2.5ML NEB SCH ×4 (01:20→19:35)
[2019-10-19 04:32] LABS: Basophils % 0.8 % (0-1.3); Hematocrit 27.3 % (36.0-45.0); Lymphocytes % 13.2 % (15.3-44.8); MPV 9.9 fL (7.6-11.3); RBC Red Blood Cell Count 3.06 M/uL (3.86-4.86)
[2019-10-19 04:45] LABS: Potassium 3.3 mmol/L (3.5-5.1)
[2019-10-19] MEDS: METOPROLOL XL 100 MG TAB PO SCH ×2 (05:24→18:30)
[2019-10-19] MEDS: HYDRALAZINE HCL 25 MG TABLET PO SCH ×3 (08:25→20:52)
[2019-10-19] MEDS: MULTIVITAMINS,THERAPEUT 1 TAB PO SCH (08:25)
[2019-10-19] MEDS: AMLODIPINE 10 MG TAB PO SCH (08:26)
[2019-10-19] MEDS: ENOXAPARIN 30 MG/0.3 ML SQ SCH (08:26)
[2019-10-19] MEDS: INSULIN -REGULAR HUMAN 50 UNIT/0.5 ML ML SQ SCH ×4 (08:27→20:53)
[2019-10-19] MEDS: FUROSEMIDE 40 MG/4 ML VIAL IV SCH (08:34)
[2019-10-19] MEDS: PANTOPRAZOLE 40 MG INJ IVP SCH (08:34)
[2019-10-19] MEDS: CEFTRIAXONE/SWI 1gm 1 GM/10 ML SYR IVP SCH (08:34)
[2019-10-19] MEDS: AZITHROMYCIN IV 500 MG in NA CHLORIDE 0.9% 250 ML IVPB SCH (08:43)
[2019-10-19] MEDS ORDERED: POTASSIUM CL SA 10 MEQ TAB PO ONE ×3 (09:00→20:00)
--- NOTE | 2019-10-19 10:38 | RAD REPORT ---
EXAM DESCRIPTION: XR CHEST 1 VIEW CLINICAL HISTORY: PICC line insertion. COMPARISON: None. FINDINGS: There is a right upper extremity PICC with the tip near the cavoatrial junction. No pneumo thorax. Small bilateral pleural effusions with adjacent airspace disease. Normal heart size. IMPRESSION: Right upper extremity PICC with the tip near the cavoatrial junction. Electronically signed by: Reed Das MD 10/17/2019 11:09 PM RADIOLOGY TRANSPORTER Due to temporary technical issues with the PACS/Fluency reporting system, reports are being signed by the in house radiologist as a courtesy to ensure prompt reporting. The interpreting radiologist is f ully responsible for the content of the report.
--- NOTE | 2019-10-19 10:49 | RAD REPORT ---
EXAM DESCRIPTION: US - UPPER EXTREMITY VENOUS UNILATE - 10/19/2019 10:38 am CLINICAL HISTORY: Right arm swelling Right arm swelling, PICC line is present COMPARISON: Chest Single View dated 10/18/2019 FINDINGS: Right upper extremity venous system was interrogated with Doppler technique. Normal flow, compressibility and augmentation was noted. There is no DVT present. IMPRESSION: No evidence of right upper extremity deep venous thrombosis.
--- NOTE | 2019-10-19 14:30 | P.PN ---
Subjective Date of Service: 10/19/19 Chief Complaint: Shortness of breath Patient right upper extremity is swollen. Her blood pressure remain elevated. Her anasarca is also improving. The leg edema has resolved. Physical Examination - Vital Signs Temperature: 98.8 F Blood Pressure: 159/80 Pulse: 89 Respirations: 18 Pulse Ox (%): 96 - Physical Exam General: Alert, In no apparent distress, Oriented x3 HEENT: Mucous membr. moist/pink Neck: JVD not distended Respiratory: Clear to auscultation bilaterally, Normal air movement Cardiovascular: Edema (Right upper extremity) Gastrointestinal: Soft and benign, Non-distended, No tenderness Musculoskeletal: Swelling (Right upper extremity) Neurological: Normal speech, Normal strength at 5/5 x4 extr Assessment And Plan - Current Problems (Diagnosis) (1) Anasarca associated with disorder of kidney Current Visit: Yes Status: Acute (2) Pleural effusion Current Visit: Yes Status: Acute (3) Pneumonia Current Visit: Yes Status: Acute (4) Chronic kidney disease, stage 3 Current Visit: Yes Status: Chronic (5) Anemia Onset Date: 05/14/16 Current Visit: No Status: Acute (6) Insulin dependent diabetes mellitus Current Visit: No Status: Acute (7) Uncontrolled hypertension Current Visit: Yes Status: Acute (8) Gastroparesis Current Visit: Yes Status: Acute - Plan Status post PRBC transfusion. The patient is diuresing well. Creatinine is trending up slowly. Lasix dosing per nephrology. Continue hydralazine and titrate Monitor renal function. Nephrology is assisting with management Change IV antibiotics to oral Levaquin Blood cultures: No growth to date. Oxygen as needed Insulin sliding scale for glucose management. Resume Novolin 70/30 once her oral intake has significantly improved. Continue Reglan with meals. She is also on Protonix.
[2019-10-19] MEDS ORDERED: Levofloxacin 750mg IV 750 MG/150 ML BAG IV SCH (15:00)
--- NOTE | 2019-10-19 15:15 | P.PN ---
Subjective Date of Service: 10/19/19 Chief Complaint: Shortness of breath Subjective: Improving pt with HX DM with neuropathy, retinopathy and gastroparesis, HTN admitted or SOB , found to have b/l pleural effusion started on lasix Today fNo new complaints will increase hydralazine RFT stable can be discharged tomorrow from nephrology point of view on lasix 80mg po daily rt arm swelling, DVT study -ve Physical Examination - Vital Signs Temperature: 98.8 F Blood Pressure: 159/80 Pulse: 89 Respirations: 18 Pulse Ox (%): 96 - Physical Exam General: In no apparent distress, Oriented x3 HEENT: Atraumatic Neck: Supple, JVD not distended Respiratory: Clear to auscultation bilaterally, Normal air movement Cardiovascular: No edema, Normal pulses, Regular rate/rhythm, Normal S1 S2, No gallops, No rubs, No murmurs Gastrointestinal: Normal bowel sounds, Soft and benign, Non-distended, No tenderness Musculoskeletal: Swelling (Rt arm swelling ) Assessment And Plan - Plan CKD III proteinuric baseline Cr ~2.0 due to DM and HTN nephrosclerosis serology W/U in the past including GABRIELLE, ANCA, C3, C4, Hep panel and HIV all negative 24hr urone protein 3.6gm F/U SPEP/ UPEP avoid NSAID and contrast Anasarca resolved pt is proteinuric , 24hr urine protein 3.6gm serology w/u was -ve IDDM as per primary team Acute on chronic anemia possibly due to eva Rasmussen tear H/h stable now PPI HTN elevated today will cont lasix will increase hydralazine recurrent Nausea and vomiting likely due to gastroparesis Cont metolcoperamide PNA cont Abx
[2019-10-19 15:39] LABS: Potassium 3.4 mmol/L (3.5-5.1)
[2019-10-19] MEDS: INSULIN 70/30 100 UNITS/ML SQ SCH (20:54)
[2019-10-20] MEDS: ALBUTEROL 2.5 MG/3 ML NEB SOL NEB SCH ×3 (02:05→15:00)
[2019-10-20] MEDS: IPRATROPIUM BROM 0.5MG/2.5ML NEB SCH ×3 (02:05→15:00)
[2019-10-20 05:33] VITALS: BMI 28.6
[2019-10-20] MEDS: METOPROLOL XL 100 MG TAB PO SCH (06:09)
[2019-10-20 06:13] LABS: Absolute Lymphocytes (CBC) 0.6 K/uL (0.7-4.9); Basophils % 0.5 % (0-1.3); Hematocrit 27.3 % (36.0-45.0); MPV 9.9 fL (7.6-11.3); RBC Red Blood Cell Count 3.04 M/uL (3.86-4.86)
[2019-10-20 06:28] LABS: Potassium 4.1 mmol/L (3.5-5.1)
[2019-10-20] MEDS: INSULIN -REGULAR HUMAN 50 UNIT/0.5 ML ML SQ SCH ×2 (07:30→11:30)
[2019-10-20] MEDS ORDERED: PANTOPRAZOLE 40MG TABLET PO SCH (07:30)
[2019-10-20] MEDS: METOCLOPRAMIDE 5 MG TAB PO SCH ×2 (07:30→13:49)
[2019-10-20 08:25] VITALS: O2SAT 96
[2019-10-20] MEDS ORDERED: FUROSEMIDE 40 MG/4 ML VIAL IV SCH (09:00)
[2019-10-20] MEDS: ENOXAPARIN 30 MG/0.3 ML SQ SCH (09:00)
[2019-10-20] MEDS: MULTIVITAMINS,THERAPEUT 1 TAB PO SCH (09:00)
[2019-10-20] MEDS: AMLODIPINE 10 MG TAB PO SCH (09:00)
[2019-10-20] MEDS: HYDRALAZINE HCL 25 MG TABLET PO SCH ×2 (09:00→13:52)
[2019-10-20] MEDS: INSULIN 70/30 100 UNITS/ML SQ SCH (09:00)
--- NOTE | 2019-10-20 14:07 | P.DS ---
Admission Date: 10/15/19 Discharge Date: 10/20/19 Disposition: ROUTINE DISCHARGE Discharge Condition: FAIR Reason for Admission: Shortness of breath Consultations: Nephrology - Problems (1) Anasarca associated with disorder of kidney Current Visit: Yes Status: Acute (2) Pleural effusion Current Visit: Yes Status: Acute (3) Pneumonia Current Visit: Yes Status: Acute (4) Chronic kidney disease, stage 3 Current Visit: Yes Status: Chronic (5) Anemia Onset Date: 05/14/16 Current Visit: No Status: Acute (6) Insulin dependent diabetes mellitus Current Visit: No Status: Acute (7) Uncontrolled hypertension Current Visit: Yes Status: Acute (8) Gastroparesis Current Visit: Yes Status: Acute Brief History of Present Illness: 39-year-old Pashto-speaking woman with a history of insulin-dependent diabetes , chronic kidney disease stage 3 and nephrotic range proteinuria presented emergency department with a complaint of progressive shortness of breath since discharge from hospitalization 3 days ago. The patient has been hospitalized multiple times for intractable nausea and vomiting. She was considered to be dehydrated during the most recent hospitalization, in which her Lasix was held and patient treated with IV fluids for acute on chronic renal failure. Her renal function improved to baseline and patient was discharged to continue taking her usual home dose Lasix. The patient returned to the ED with the complaint of shortness of breath, coughing and wheezing and increased edema in her lower extremities. CT chest done in the ED reported bilateral pleural effusion and bilateral opacities suggestive of pneumonia. Her lower extremities noted to be quite edematous. She was not hypoxic. She had mild leukocytosis and anemic. Patient was admitted for further management of anasarca and possible pneumonia. Hospital Course: Patient was treated with IV Lasix. She responded with good diuresis. The anasarca resolved. Her renal function was relatively stable with diuresis. She developed intractable nausea and vomiting suspected to be secondary to gastroparesis. She was treated with Reglan with meals. The nausea and vomiting also improved with treatment. She also treated with antibiotics for pneumonia. Patient has improved clinically. He has tolerated feeding, her long -acting insulin was resumed yesterday. She was seen and followed by the nephrology team was assisted with fluid management. The patient is deemed clinically stable for discharge. Vital Signs/Physical Exam: Temp Pulse Resp BP Pulse Ox 98.2 F 92 H 16 146/78 H 99 10/20/19 04:00 10/20/19 06:09 10/20/19 04:00 10/20/19 06:09 10/20/19 04:00 General: Alert, In no apparent distress, Oriented x3 HEENT: Mucous membr. moist/pink Neck: JVD not distended Respiratory: Clear to auscultation bilaterally, Normal air movement Cardiovascular: No edema, Regular rate/rhythm, Normal S1 S2 Gastrointestinal: Normal bowel sounds, Soft and benign, No tenderness Musculoskeletal: No swelling Integumentary: No rashes Neurological: Normal speech, Normal strength at 5/5 x4 extr Laboratory Data at Discharge: WBC 7.5 K/uL (4.3-10.9) 10/20/19 06:00 Hgb 8.7 g/dL (12.0-15.0) L 10/20/19 06:00 Hct 27.3 % (36.0-45.0) L 10/20/19 06:00 Plt Count 182 K/uL (152-406) 10/20/19 06:00 Sodium 141 mmol/L (136-145) 10/20/19 06:00 Potassium 4.1 mmol/L (3.5-5.1) 10/20/19 06:00 BUN 18 mg/dL (7-18) 10/20/19 06:00 Creatinine 2.24 mg/dL (0.55-1.3) H 10/20/19 06:00 Glucose 152 mg/dL (74-106) H 10/20/19 06:00 Phosphorus 3.9 mg/dL (2.5-4.9) 10/18/19 08:00 Magnesium 1.9 mg/dL (1.8-2.4) 10/18/19 08:00 Home Medications: Metoprolol Tartrate 100 mg PO BID #60 tablet 06/10/19 Insulin NPH Hum/Reg Insulin Hm [Novolin 70-30 100 Unit/ml Vial] 10 unit SQ BID 06/15/19 Ergocalciferol (Vitamin D2) [Vitamin D2] 1 cap PO SEECOM 10/03/19 Amlodipine Besylate [Norvasc] 10 mg PO DAILY #30 tablet 10/06/19 Folic Acid/Vit B Complex and C [Sienna-Gissel Tablet] 0.8 mg PO DAILY #30 tablet 08/15 Metoclopramide [Reglan*] 5 mg PO TID #30 tab 10/12/19 Tramadol HCl [Ultram] 50 mg PO Q8HP 10/15/19 Furosemide [Lasix*] 40 mg PO BID 30 Days #60 tab 10/20/19 Hydralazine [Apresoline*] 50 mg PO TID #90 tab 10/20/19 Pantoprazole [Protonix Tab*] 40 mg PO BIDAC #60 tab 10/20/19 New Medications: Furosemide [Lasix*] 40 mg PO BID 30 Days #60 tab Hydralazine [Apresoline*] 50 mg PO TID #90 tab Pantoprazole [Protonix Tab*] 40 mg PO BIDAC #60 tab Diet: ADA Activity: Ad shena Followup: Lizeth Yeung MD [ACTIVE - CAN ADMIT] - 1-2 Weeks Time spent managing pt's care (in minutes): 36
[2019-10-20 14:13] VITALS: BP 140/74; TEMP 98.7
--- NOTE | 2019-10-20 15:46 | P.PN ---
Subjective Date of Service: 10/20/19 Chief Complaint: Shortness of breath Subjective: Improving pt with HX DM with neuropathy, retinopathy and gastroparesis, HTN admitted or SOB , found to have b/l pleural effusion started on lasix Today No over night events BP better controlled RFT stable can be discharged from nephrology point of view on lasix 80mg po daily Physical Examination - Vital Signs Temperature: 98.7 F Blood Pressure: 140/74 Pulse: 91 Respirations: 17 Pulse Ox (%): 98 - Physical Exam General: In no apparent distress, Oriented x3 HEENT: Atraumatic, Normocephalic, EOMI Neck: Supple, 2+ carotid pulse no bruit, JVD not distended Respiratory: Clear to auscultation bilaterally, Normal air movement Cardiovascular: No edema, Normal pulses, Regular rate/rhythm, Normal S1 S2, No gallops, No rubs, No murmurs Gastrointestinal: Normal bowel sounds, Soft and benign, No ascites Musculoskeletal: No swelling Integumentary: No rashes Neurological: Normal gait, Normal speech Assessment And Plan - Plan CKD III proteinuric baseline Cr ~2.0 due to DM and HTN nephrosclerosis serology W/U in the past including GABRIELLE, ANCA, C3, C4, Hep panel and HIV all negative 24hr urone protein 3.6gm F/U SPEP/ UPEP avoid NSAID and contrast Anasarca resolved pt is proteinuric , 24hr urine protein 3.6gm serology w/u was -ve IDDM as per primary team Acute on chronic anemia possibly due to eva Rasmussen tear H/h stable now PPI HTN controlled cont current meds recurrent Nausea and vomiting likely due to gastroparesis Cont metolcoperamide PNA cont Abx
[2019-10-21 22:06] LABS: Albumin, (SPE) 2.7 g/dL (3.8-4.8); Alpha-1-Globulins 0.3 g/dL (0.2-0.3); Alpha-2-Globulins 0.6 g/dL (0.5-0.9); Gamma Globulins 0.5 g/dL (0.8-1.7); INTERPRETATION REPORT
== END 2019-10-20 16:26 | disposition home or self-care (01) | DRG 194 ==
LOC: ER 14:45 → ERHOLD 17:16 → 4TH 18:22 → 2ND 10-19 14:32
PROVIDERS: ADMIT Internal Medicine; ATTEND Internal Medicine
PROC: 02HV33Z Insertion of Infusion Device into Superior Vena Cava, Percutaneous Approach (ICD-10-PCS; principal; 2019-10-17)
DX: J18.9 Pneumonia, unspecified organism (principal); I13.0 Hypertensive heart and chronic kidney disease with heart failure and stage 1 through stage 4 chronic kidney disease, or unspecified chronic kidney disease; I50.32 Chronic diastolic (congestive) heart failure; N18.4 Chronic kidney disease, stage 4 (severe); N04.9 Nephrotic syndrome with unspecified morphologic changes; E11.22 Type 2 diabetes mellitus with diabetic chronic kidney disease; K21.9 Gastro-esophageal reflux disease without esophagitis; K44.9 Diaphragmatic hernia without obstruction or gangrene; K31.84 Gastroparesis
CPT/HCPCS: 36415; 71045; 71046; 71250; 80048; 81003; 81015; 82274; 82570; 82607; 82728; 82746; 82947; 83540; 83605; 83735; 84100; 84145; 84156; 84165; 84443; 84466; 85025; 86334; 86335; 86850; 86900; 86901; 87040; 87804; 93005; 93971; 94640; 96365; 96375; 99285; C9113; J0456; J0696; J1650; J1815; J1940; J2405; J2550; J2765; J3370; J3475; J7030; P9016

== ENCOUNTER 2019-10-23 15:34 | Inpatient (IN) | payer SELFPAY ==
--- OUTSIDE RECORDS SUMMARY | 2019-10-23 15:35 | XMS REPORT ---
:1980 [facility] Address [address] [place] [address] [address] [place] [address] Care Team Providers Name Role Phone Unavailable Unavailable Unavailable Problems This patient has no known problems. Allergies, Adverse Reactions, Alerts This patient has no known allergies or adverse reactions. Medications This patient has no known medications.
[2019-10-23] MEDS ORDERED: ONDANSETRON 4 MG/2 ML VIAL ONE (16:20)
[2019-10-23] MEDS ORDERED: MORPHINE 4 MG/ML SYR ONE (16:20)
[2019-10-23] MEDS ORDERED: METOCLOPRAMIDE 10 MG/2mL INJ ONE ×2 (16:48→23:07)
[2019-10-23] MEDS ORDERED: FUROSEMIDE 40 MG/4 ML VIAL ONE (16:48)
[2019-10-23 17:48] LABS: Absolute Lymphocytes (CBC) 0.7 K/uL (0.7-4.9); Basophils % 0.5 % (0-1.3); Hematocrit 32.1 % (36.0-45.0); Lymphocytes % 4.6 % (15.3-44.8); MPV 10.5 fL (7.6-11.3)
[2019-10-23 17:55] LABS: Protime INR 1.06
[2019-10-23 18:03] LABS: Phosphorus 2.9 mg/dL (2.5-4.9); Uric Acid 6.1 mg/dL (2.6-6.0)
[2019-10-23 18:09] LABS: ALT/SGPT 25 U/L (12-78); AST/SGOT 16 U/L (15-37); Albumin 3.2 g/dL (3.4-5.0); Alkaline Phosphatase 77 U/L (45-117); BUN Blood Urea Nitrogen 27 mg/dL (7-18); Bicarbonate 27 mmol/L (21-32); Bilirubin Direct 0.2 mg/dL (0-0.2); Bilirubin Total 0.5 mg/dL (0.2-1.0); Glucose Level 293 mg/dL (74-106); Lipase 40 U/L (73-393); Magnesium 1.8 mg/dL (1.8-2.4); NT PRO-BNP 8570 pg/mL (<125); Protein, Total 6.5 g/dL (6.4-8.2); Sodium Level 138 mmol/L (136-145); Troponin (Emerg Dept Use Only) < 0.02 ng/mL (0.0-0.045)
[2019-10-23] MEDS ORDERED: PROMETHAZINE INJ 25 MG/ML AMP ONE ×2 (18:18→20:26)
[2019-10-23 18:20] LABS: Blood Morphology Comment NOTED (NOT SEEN); Burr Cells 1+; Elliptocytes 1+; Platelet Estimate ADEQ; Poikilocytosis 1+; Teardrop Cell 1+
--- NOTE | 2019-10-23 19:50 | RAD REPORT ---
EXAM DESCRIPTION: Tami Single View10/23/2019 5:07 pm CLINICAL HISTORY: Shortness of breath COMPARISON: October 18, 2019 FINDINGS: Small moderate bilateral pleural effusions with bibasilar atelectasis Minimal interstitial pulmonary edema Heart is normal size
--- NOTE | 2019-10-23 19:50 | RAD REPORT ---
EXAM DESCRIPTION: CT - Stone Protocol - 10/23/2019 7:38 pm CLINICAL HISTORY: Abdominal pain. COMPARISON: None. TECHNIQUE: Computed axial tomography of the abdomen pelvis was obtained without oral or IV contrast. Lack of IV and oral contrast limits evaluation of solid organs, bowel, and vessels. Coronal reformat jazmin images were obtained and reviewed. All CT scans are performed using dose optimization technique as appropriate and may include automated exposure control or mA/KV adjustment according to patient size. FINDINGS: A renal calculus is not seen. An ureteral calculus is not noted. A bladder calculus is not present. Bladder distention Cholecystectomy. Small amount of ascites. Diffuse edema within the subcutaneous tissues Small to moderate bilateral pleural effusions. Small pericardial effusion The liver, spleen, and adrenals appear grossly normal. Atrophic pancreas There is no evidence of diverticulitis. The appendix appears normal Moderate amount of stool throughout the colon IMPRESSION: Negative for a genitourinary calculus Bladder distention Small to moderate bilateral pleural effusions. Small pericardial effusion Diffuse edema within the subcutaneous tissues. Patient may have anasarca.
[2019-10-23] MEDS ORDERED: DIPHENHYDRAMINE 50 MG/ML VIAL ONE (20:27)
[2019-10-23 20:43] LABS: Urine Blood 2+ (NEG); Urine Glucose 1+ (NEG); Urine Protein 3+ (NEG)
--- NOTE | 2019-10-23 21:49 | ER ---
Nurse's Notes [facility] Name: Mercedes Marin Age: 39 yrs Sex: Female : 1980 Arrival Date: 10/23/2019 Time: 15:34 Bed 24 Private MD: Diagnosis: Intractable Vomiting;End stage renal disease Presentation: 10/23 15:44 Presenting complaint: states: vomiting and abdominal pain started yesterday. Transition of care: patient was not received from another setting of care. Onset of symptoms was October 22, 2019. Risk Assessment: Do you want to hurt yourself or someone else? Patient reports no desire to harm self or others. Initial Sepsis Screen: Does the patient meet any 2 criteria? No. Patient's initial sepsis screen is negative. Does the patient have a suspected source of infection? No. Patient's initial sepsis screen is negative. Care prior to arrival: None. 15:44 Method Of Arrival: Ambulatory 15:44 Acuity: ALONDRA 3 Triage Assessment: 15:46 General: Appears in no apparent distress. uncomfortable, ill, Behavior is cooperative, ch appropriate for age, anxious. Pain: Complains of pain in abdomen. 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 - Social history:: Smoking status: Patient/guardian denies using tobacco, Patient/guardian denies using alcohol, street drugs. - Ebola Screening: : Patient negative for fever greater than or equal to 101.5 degrees Fahrenheit, and additional compatible Ebola Virus Disease symptoms Patient denies exposure to infectious person Patient denies travel to an Ebola-affected area in the 21 days before illness onset No symptoms or risks identified at this time. Screenin:09 Nutritional screening: No deficits noted. Tuberculosis screening: No symptoms or risk sr5 factors identified. Fall Risk No fall in past 12 months (0 pts). Secondary diagnosis (15 points) IV access (20 points). Ambulatory Aid- None/Bed Rest/Nurse Assist (0 pts). Gait- Weak (10 pts.). Mental Status- Oriented to own ability (0 pts). Total Kirby Fall Scale indicates Low Risk Score (25-44 pts). Fall prevention measures have been instituted. Side Rails Up X 2 Frequent Obs/Assesments occuring Family Present and informed to notify staff if they need to leave bedside As available Patient and Family Educated on Fall Prevention Program and strategies. 19:06 Abuse screen: Denies threats or abuse. sr5 Assessment: 16:09 Reassessment: Assumed care of pt. Pt sitting upright, active vomiting, moaning, sr5 following commands, equal unlabored resp, skin cool/dry, open wound noted to RIGHT knuckle, several bruises noted to arms bilat, dry gauze bandage to RIGHT Upper arm reported previous PICC line placement. c/o epigastric abd pain, +3 BLE reported to have started yesterday. Family reports that pt is almost in need of dialysis. 22G R FA attempt, unsuccessful. 17:54 Reassessment: LEFT upper arm midline placed per WALDEMAR Hernandez. Labs collected . Meds given.sr5 19:06 Reassessment: No urine voided yet. Provider aware. Awaiting CT. Nausea/vomiting has sr5 subsided since Phenergan administration. IV site asympt/SL, equal unlabored resp, skin cool/dry/nc. on tele, SR, HR 95, BP 127/81. 19:34 Reassessment: Pt to CT via wheelchair. Bed linens changed. sr5 23:14 Reassessment: Pt had been resting up until this point. Vomiting returned. Dr. Andrews in sr5 ER, orders received. Pt remains alert/appropriate, family at bedside, equal unlabored resp, room air, skin warm/dry/nc, ST on monitor, HR 104, IV site asympt/SL. Awaiting admission to room 224. Vital Signs: 16:09 BP 182 / 96; Pulse 96; Resp 18; Temp 99.0(O); Pulse Ox 100% on R/A; Pain 10/10; sr5 17:54 Pulse 98; Pulse Ox 97% ; sr5 18:25 BP 161 / 90; Pulse 97; Resp 16; Temp 97.9(O); Pulse Ox 96% on R/A; sr5 19:06 BP 127 / 81; Pulse 95; Resp 14; Pulse Ox 97% on R/A; sr5 19:59 BP 143 / 94; Pulse 98; Resp 16; Pulse Ox 94% on R/A; tr5 21:49 BP 167 / 116; Pulse 102; Resp 20; Temp 99.3(O); Pulse Ox 98% on R/A; sr5 22:15 BP 166 / 77; Pulse 99; sr5 22:31 BP 161 / 95; Pulse 98; Resp 18; Pulse Ox 95% on R/A; sr5 22:57 Pulse 103; Resp 18; Pulse Ox 100% on R/A; sr5 23:14 BP 155 / 83; sr5 23:25 BP 107 / 85; Pulse 104; Resp 14; Pulse Ox 95% on R/A; sr5 Vitals: 18:25 Cardiac Rhythm Assessment Sinus rhythm. sr5 19:59 Cardiac Rhythm Assessment Sinus rhythm. tr5 21:49 Cardiac Rhythm Assessment Sinus tach. sr5 23:14 Cardiac Rhythm Assessment Sinus tach. sr5 ED Course: 15:34 Patient arrived in ED. as 15:45 Triage completed. ch 15:46 Arm band placed on left wrist. Patient placed in an exam room, on a stretcher. ch 15:48 Olegario Hernández FNP-C is PHCP. la1 15:48 Washington Shaffer MD is Attending Physician. la1 15:51 Flaquito Hoyos, RN is Primary Nurse. sr5 16:09 Patient has correct armband on for positive identification. Placed in gown. Bed in low sr5 position. Call light in reach. Side rails up X 1. Side rails up X2. barrel raiser helper on. Pulse ox on. NIBP on. Warm blanket given. 16:09 Missed attempt(s): 22 gauge in right forearm. sr5 16:27 Missed attempt(s): 22 gauge in left antecubital area. Bleeding controlled, band aid mb4 applied, catheter tip intact. 16:46 Missed attempt(s): 22 gauge in left forearm. Bleeding controlled, band aid applied, hb catheter tip intact. 17:07 XRAY Chest (1 view) In Process Unspecified. EDMS 17:30 Accessed ,peripheral vein via ultrasound, utilizing static ultrasound technique using sg per hospital protocol. Dressing intact. Good blood return. Flushes easily. PowerGlide 20 G 10 cm to left upper arm. 18:39 Radiology exam delayed due to test not completed at this time. md1 18:46 by me, sent to lab. mb4 19:36 CT completed. Patient tolerated procedure well. Patient moved to CT via wheelchair. Patient moved back from CT. 19:42 CT Stone Protocol In Process Unspecified. EDMS 21:46 Hardeep Andrews MD is Hospitalizing Provider. la1 21:49 No provider procedures requiring assistance completed. Patient admitted, IV remains in sr5 place. 21:55 Assisted to bathroom. sr5 Administered Medications: 17:52 Drug: Zofran 4 mg Route: IVP; Site: left upper arm; sr5 18:28 Follow up: Response: Nausea unchanged sr5 17:52 Drug: morphine 4 mg Route: IVP; Site: left upper arm; sr5 18:28 Follow up: Response: Pain is unchanged, physician notified sr5 17:52 Drug: Reglan 10 mg Route: IVP; Site: left upper arm; sr5 18:27 Follow up: Response: Nausea unchanged sr5 17:52 Drug: Lasix 40 mg Route: IVP; Site: left upper arm; sr5 18:53 Follow up: Response: No change in condition sr5 18:27 Drug: Phenergan 12.5 mg Route: IVP; Site: left upper arm; sr5 18:27 Follow up: Response: Nausea is decreased sr5 20:30 Drug: Phenergan 12.5 mg Route: IVP; Site: left upper arm; sr5 21:54 Follow up: Response: Nausea unchanged sr5 20:30 Drug: Benadryl 12.5 mg Route: IVP; Site: left upper arm; sr5 21:54 Follow up: Response: Nausea unchanged sr5 22:56 Drug: hydrALAZINE 10 mg Route: IV; Rate: bolus; Site: left upper arm; sr5 23:14 Follow up: Response: Blood pressure is lowered sr5 23:02 CANCELLED (Dr. Andrews said give Reglan 10mg IVP): Zofran 4 mg IVP once; over 2 minutes sr5 23:03 CANCELLED (Ordered under wrong Provider): Reglan 10 mg IVP once; over 1 to 2 minutes sr5 23:14 Drug: Reglan 10 mg Route: IVP; Site: left upper arm; sr5 Output: 21:55 Urine: 450ml (Voided); Total: 450ml. sr5 Outcome: 21:48 Decision to Hospitalize by Provider. la1 23:24 Admitted to Tele via wheelchair, with chart, Report called to 2nd floor receiving WALDEMAR mir 23:24 Condition: unchanged 23:24 Instructed on the need for admit. 23:45 Patient left the ED. sr5 Signatures: Dispatcher [employer] EDJessenia Yanes, David Syed RN, ch, RN RN sg Hagler, Ervin eh Martinez, Amelia as Attema, Lee, PADDLE DYEING MACHINE OPERATOR-C PADDLE DYEING MACHINE OPERATOR-Cla1 Griselda Shields RN WALDEMAR Flaquito Hoyos RN RN 5 Marychuy Shields4 Harjit Peres RN RN tr5 Patricia Granados Corrections: (The following items were deleted from the chart) 16:14 16:09 Abuse screen: Denies threats or abuse. sr5 sr5
--- NOTE | 2019-10-23 21:50 | EDPHYS ---
Physician Documentation [facility] Name: Mercedes Marin Age: 39 yrs Sex: Female : 1980 Arrival Date: 10/23/2019 Time: 15:34 Bed 24 Private MD: ED Physician Washington Shaffer HPI: 10/23 16:10 This 39 yrs old Female presents to ER via Ambulatory with complaints of la1 Abdominal Pain. 16:10 The patient presents with abdominal pain in the epigastric area. Onset: The la1 symptoms/episode began/occurred 2 day(s) ago. The symptoms do not radiate. Associated signs and symptoms: Pertinent positives: nausea, vomiting. The symptoms are described as sharp. Modifying factors: The symptoms are alleviated by nothing, the symptoms are aggravated by nothing. Severity of pain: At its worst the pain was moderate. Pt also reports swelling in DAWSON LE, does have history of renal isssues. 16:18 Pt was recently admitted to hospital for end stage renal disease, vomiting. . 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 - Social history:: Smoking status: Patient/guardian denies using tobacco, Patient/guardian denies using alcohol, street drugs. - Ebola Screening: : Patient negative for fever greater than or equal to 101.5 degrees Fahrenheit, and additional compatible Ebola Virus Disease symptoms Patient denies exposure to infectious person Patient denies travel to an Ebola-affected area in the 21 days before illness onset No symptoms or risks identified at this time. ROS: 16:19 Constitutional: Negative for fever, chills, and weight loss, Eyes: Negative for injury, la1 pain, redness, and discharge, ENT: Negative for injury, pain, and discharge, Neck: Negative for injury, pain, and swelling, Cardiovascular: Negative for chest pain, palpitations, and edema. 16:19 Cardiovascular: + for DAWSON LE edema 16:19 Respiratory: Negative for shortness of breath, cough, wheezing, and pleuritic chest pain, Abdomen/GI: + for abd pain, vomiting' Back: Negative for injury and pain, MS/Extremity: Negative for injury and deformity. 16:19 Neuro: Negative for headache, weakness, numbness, tingling, and seizure. Exam: 16:20 Constitutional: This is a well developed, well nourished patient who is awake, alert, la1 and in no acute distress. Head/Face: Normocephalic, atraumatic. Eyes: Pupils equal round and reactive to light, extra-ocular motions intact. Periorbital areas with no swelling, redness, or edema. ENT: Mucous membranes moist. Neck: Trachea midline, no thyromegaly or masses palpated, and no cervical lymphadenopathy. Supple, full range of motion without nuchal rigidity, or vertebral point tenderness. No Meningismus. Chest/axilla: Normal chest wall appearance and motion. Nontender with no deformity. No lesions are appreciated. 16:20 Cardiovascular: Edema: 2+ edema to level of left midcalf, left ankle, left foot, left toes, right midcalf, right ankle, right foot and right toes, 3+ edema to level of left midcalf, left ankle, left foot, left toes, right midcalf, right ankle, right foot and right toes, JVD: is noted bilaterally, to 1 cm. 16:20 Respiratory: the patient does not display signs of respiratory distress, Respirations: normal, Breath sounds: are clear throughout. 16:20 Abdomen/GI: Inspection: abdomen appears normal, Bowel sounds: normal, in all quadrants, Palpation: soft, in all quadrants, moderate abdominal tenderness, in the epigastric area, right upper quadrant and left upper quadrant, actively vomiting in the room. Vital Signs: 16:09 BP 182 / 96; Pulse 96; Resp 18; Temp 99.0(O); Pulse Ox 100% on R/A; Pain 10/10; sr5 17:54 Pulse 98; Pulse Ox 97% ; sr5 18:25 BP 161 / 90; Pulse 97; Resp 16; Temp 97.9(O); Pulse Ox 96% on R/A; sr5 19:06 BP 127 / 81; Pulse 95; Resp 14; Pulse Ox 97% on R/A; sr5 19:59 BP 143 / 94; Pulse 98; Resp 16; Pulse Ox 94% on R/A; tr5 21:49 BP 167 / 116; Pulse 102; Resp 20; Temp 99.3(O); Pulse Ox 98% on R/A; sr5 22:15 BP 166 / 77; Pulse 99; sr5 22:31 BP 161 / 95; Pulse 98; Resp 18; Pulse Ox 95% on R/A; sr5 22:57 Pulse 103; Resp 18; Pulse Ox 100% on R/A; sr5 23:14 BP 155 / 83; sr5 23:25 BP 107 / 85; Pulse 104; Resp 14; Pulse Ox 95% on R/A; sr5 MDM: 15:54 Patient medically screened. la1 20:42 Data reviewed: vital signs, nurses notes, old medical records, admissions records from [facility] three days prior lab test result(s), EKG, radiologic studies, I have discussed the patient's presentation/case with the attending Emergency Department Physician; and as a result, I will discharge patient. Data interpreted: Pulse oximetry: on room air is 94 %. Interpretation: acceptable. Test interpretation: by ED physician or midlevel provider: ECG, plain radiologic studies. 21:24 ED course: Pt renal function slightly worsened from recent discharge, pt and family la1 state she is compliant with her medications but state they were not aware of the diet she is supposed to be on for her kidneys. Pt and family state when she was sent home from the hospital her LE edema was gone but yesterday it came back. Today she began having abd pain, nausea, and vomiting. . 21:27 ED course: attempting to have patient tolerate fluids PO so that she can be discharged la1 for outpatient follow up. 21:44 ED course: Pt unable to drink cup of water without vomiting. will be admitted for la1 intractable vomiting, worsening renal function.. 10/23 16:02 Order name: Basic Metabolic Panel; Complete Time: 18:18 10/23 16:02 Order name: CBC with Diff; Complete Time: 19:03 10/23 16:02 Order name: LFT's; Complete Time: 18:18 10/23 16:02 Order name: Magnesium; Complete Time: 18:18 la10/23 16:02 Order name: NT PRO-BNP; Complete Time: 18:18 10/23 16:02 Order name: PT-INR; Complete Time: 18:18 10/23 16:02 Order name: Troponin (emerg Dept Use Only); Complete Time: 18:18 [facility] 10/23 16:02 Order name: Lipase; Complete Time: 18:18 [facility] 10/23 16:17 Order name: Uric Acid; Complete Time: 18:18 [facility] 10/23 16:17 Order name: Phosphorus; Complete Time: 18:18 [facility] 10/23 16:17 Order name: LDH; Complete Time: 18:18 [facility] 10/23 18:20 Order name: Manual Differential; Complete Time: 19:03 [facility] 10/23 18:39 Order name: Test, Serum; Complete Time: 19:26 hb 10/23 20:27 Order name: Urine Dipstick--Ancillary (enter results); Complete Time: 21:43 ar 10/23 16:02 Order name: XRAY Chest (1 view); Complete Time: 19:57 [facility] 10/23 16:02 Order name: EKG; Complete Time: 16:03 [facility] 10/23 16:27 Order name: CT Stone Protocol; Complete Time: 19:57 [facility] 10/23 22:28 Order name: CONS Physician Consult [facility] 10/23 22:28 Order name: Renal [facility] 10/23 16:02 Order name: Cardiac monitoring; Complete Time: 18:28 [facility] 10/23 16:02 Order name: EKG - Nurse/Tech; Complete Time: 18:28 [facility] 10/23 16:02 Order name: IV Saline Lock; Complete Time: 17:53 [facility] 10/23 16:02 Order name: Labs collected and sent; Complete Time: 17:53 [facility] 10/23 16:02 Order name: O2 Per Protocol; Complete Time: 17:53 [facility] 10/23 16:02 Order name: O2 Sat Monitoring; Complete Time: 18:28 [facility] 10/23 20:24 Order name: PO challenge: water; Complete Time: 21:00 la1 Administered Medications: 17:52 Drug: Zofran 4 mg Route: IVP; Site: left upper arm; sr5 18:28 Follow up: Response: Nausea unchanged sr5 17:52 Drug: morphine 4 mg Route: IVP; Site: left upper arm; sr5 18:28 Follow up: Response: Pain is unchanged, physician notified sr5 17:52 Drug: Reglan 10 mg Route: IVP; Site: left upper arm; sr5 18:27 Follow up: Response: Nausea unchanged sr5 17:52 Drug: Lasix 40 mg Route: IVP; Site: left upper arm; sr5 18:53 Follow up: Response: No change in condition sr5 18:27 Drug: Phenergan 12.5 mg Route: IVP; Site: left upper arm; sr5 18:27 Follow up: Response: Nausea is decreased sr5 20:30 Drug: Phenergan 12.5 mg Route: IVP; Site: left upper arm; sr5 21:54 Follow up: Response: Nausea unchanged sr5 20:30 Drug: Benadryl 12.5 mg Route: IVP; Site: left upper arm; sr5 21:54 Follow up: Response: Nausea unchanged sr5 22:56 Drug: hydrALAZINE 10 mg Route: IV; Rate: bolus; Site: left upper arm; sr5 23:14 Follow up: Response: Blood pressure is lowered sr5 23:02 CANCELLED (Dr. Andrews said give Reglan 10mg IVP): Zofran 4 mg IVP once; over 2 minutes sr5 23:03 CANCELLED (Ordered under wrong Provider): Reglan 10 mg IVP once; over 1 to 2 minutes sr5 23:14 Drug: Reglan 10 mg Route: IVP; Site: left upper arm; sr5 Disposition: 10/24 19:35 Co-signature as Attending Physician, Washington Shaffer MD I agree with the assessment and kdr plan of care. Disposition: 10/23/19 21:48 Hospitalization ordered by Hardeep Andrews for Inpatient Admission. Preliminary diagnosis are Intractable Vomiting, End stage renal disease. - Bed requested for Telemetry/MedSurg (Inpatient). - Status is Inpatient Admission. sr5 - Condition is Stable. - Problem is chronic. - Symptoms have worsened. UTI on Admission? No Signatures: Dispatcher [employer] EDJessenia Yanes RN RN ch Lewis, Kimberly, RN RN kl Rittger, Kevin, MD MD kdr Olegario Hernández, OCCASIONAL CAREGIVER-C OCCASIONAL CAREGIVER-Cla1 Flaquito Hoyos RN RN sr5 Corrections: (The following items were deleted from the chart) 10/23 20:42 16:20 Cardiovascular: Edema: 3+ edema to level of left midcalf, left ankle, left foot, la1 left toes, right midcalf, right ankle, right foot and right toes, JVD: is noted bilaterally, to 3 cm, la1 20:42 Counseling: I had a detailed discussion with the patient and/or guardian la1 regarding: the historical points, exam findings, and any diagnostic results supporting the discharge/admit diagnosis, the presence of at least one elevated blood pressure reading (>120/80) during this emergency department visit, lab results, radiology results, the need for outpatient follow up, a family practitioner, nephrology, to return to the emergency department if symptoms worsen or persist or if there are any questions or concerns that arise at home, la1 20:42 Special discussion: Based on the patient's history, exam, and Dx evaluation, la1 there is no indication for emergent intervention or inpatient Tx. It is understood by the patient/guardian that if the Sx's persist or worsen they need to return immediately for re-evaluation. Based on the history and exam findings, there is no indication for further emergent testing or inpatient evaluation. I discussed with the patient/guardian the need to see the urologist for further evaluation of the symptoms. la1 22:40 21:48 Hospitalization Ordered by Hardeep Andrews MD for Inpatient Admission. Preliminary kl diagnosis is Intractable Vomiting; End stage renal disease. Bed requested for Telemetry/MedSurg (Inpatient). Status is Inpatient Admission. Condition is Stable. Problem is chronic. Symptoms have worsened. UTI on Admission? No. la1 23:02 23:00 Zofran 4 mg IVP once; over 2 minutes ordered. sr5 sr5 23:03 23:02 Reglan 10 mg IVP once; over 1 to 2 minutes ordered. sr5 sr5 23:45 22:40 10/23/2019 21:48 Hospitalization Ordered by Hardeep Andrews MD for Inpatient sr5 Admission. Preliminary diagnosis is Intractable Vomiting; End stage renal disease. Bed requested for Telemetry/MedSurg (Inpatient). Status is Inpatient Admission. Condition is Stable. Problem is chronic. Symptoms have worsened. UTI on Admission? No. kl
[2019-10-23] MEDS ORDERED: ALBUTEROL 2.5 MG/3 ML NEB SOL NEB PRN (22:22)
[2019-10-23] MEDS ORDERED: ACETAMINOPHEN 500 MG TAB PO PRN (22:22)
[2019-10-23] MEDS ORDERED: HYDRALAZINE HCL 20 MG/ML VIAL IV PRN (22:27)
--- NOTE | 2019-10-23 22:30 | P.HP ---
Certification for Inpatient Patient admitted to: Inpatient With expected LOS: >2 Midnights Patient will require the following post-hospital care: None Practitioner: I am a practitioner with admitting privileges, knowledge of patient current condition, hospital course, and medical plan of care. Services: Services provided to patient in accordance with Admission requirements found in Title 42 Section 412.3 of the Code of Federal Regulations Patient History Date of Service: 10/24/19 Reason for admission: Abdominal pain, intractable nausea and vomiting History of Present Illness: 39-year-old female with past medical history of diabetes mellitus, gastroparesis, CKD stage 4, hypertension, chronic nausea and vomiting, chronic pancreatitis, Admitted with abdominal pain and intractable nausea and vomiting. Patient states that she started having nausea and vomiting for the last 2 days and has been progressively worsening and she could not tolerate anything p.o. patient states he has diffuse abdominal discomfort. Denies any diarrhea. No fever no chills. No sick contacts. She has a previous history of gastroparesis and has had previous admissions similar to this . Patient was assessed in the ER and was found to have intractable nausea and vomiting and is admitted for further monitoring. Allergies No Known Allergies Allergy (Verified 10/15/19 20:41) Home medications list reviewed: Yes Home Medications: Metoprolol Tartrate 100 mg PO BID #60 tablet 06/10/19 Insulin NPH Hum/Reg Insulin Hm [Novolin 70-30 100 Unit/ml Vial] 10 unit SQ BID 06/15/19 Ergocalciferol (Vitamin D2) [Vitamin D2] 1 cap PO SEECOM 10/03/19 Amlodipine Besylate [Norvasc] 10 mg PO DAILY #30 tablet 10/06/19 Folic Acid/Vit B Complex and C [Sienna-Gissel Tablet] 0.8 mg PO DAILY #30 tablet 08/15 Metoclopramide [Reglan*] 5 mg PO TID #30 tab 10/12/19 Tramadol HCl [Ultram] 50 mg PO Q8HP 10/15/19 Furosemide [Lasix*] 40 mg PO BID 30 Days #60 tab 10/20/19 Hydralazine [Apresoline*] 50 mg PO TID #90 tab 10/20/19 Pantoprazole [Protonix Tab*] 40 mg PO BIDAC #60 tab 10/20/19 - Past Medical/Surgical History Diabetic: Yes Past Medical History: Reviewed- Non-Contributory -: Diabetes mellitus type 2, insulin dependent -: Hypertension -: Chronic kidney disease stage 4 -: Diabetic nephropathy -: GERD with hiatal hernia -: Chronic nausea and vomiting -: Chronic anemia with Iron/B12 deficiency -: History of pancreatitis -: Chronic diastolic CHF Past Surgical History: Reviewed- Non-Contributory -: Pancreatic pseudocystectomy -: Appendectomy -: Cholecystectomy Psychosocial/ Personal History: Patient is - Family History Family History: Reviewed- Non-Contributory - Family History Mother -: Heart disease, Diabetes - Social History Smoking Status: Never smoker Alcohol use: No CD- Drugs: No Caffeine use: No Review of Systems 10-point ROS is otherwise unremarkable Physical Examination - Vital Signs Temperature: 99 F Blood Pressure: 182/96 Pulse: 96 Respirations: 19 - Physical Exam General: Alert, Oriented x3, Mild distress HEENT: Atraumatic, Normocephalic Neck: Supple Respiratory: Clear to auscultation bilaterally, Normal air movement Cardiovascular: Regular rate/rhythm, Normal S1 S2, Edema Capillary refill: <2 Seconds Gastrointestinal: W/out hepatosplenomegaly, Distended, Tenderness Musculoskeletal: No clubbing, Swelling Integumentary: No rashes Neurological: Normal speech, Normal strength at 5/5 x4 extr Lymphatics: No axilla or inguinal lymphadenopathy Urinary: Other (No bladder distention) External genitalia: Deferred Rectal: Deferred - Studies Laboratory Data (last 24 hrs) 10/23/19 17:38: Uric Acid 6.1 H, Phosphorus 2.9 10/23/19 17:38: PT 12.5, INR 1.06 10/23/19 17:38: WBC 14.6 H D, Hgb 10.4 L, Hct 32.1 L D, Plt Count 217 10/23/19 17:38: Sodium 138, Potassium 4.0, BUN 27 H, Creatinine 2.47 H, Glucose 293 H, Magnesium 1.8, Total Bilirubin 0.5, AST 16, ALT 25, Alkaline Phosphatase 77, Lipase 40 L Assessment and Plan - Problems (Diagnosis) (1) Acute worsening of stage 4 chronic kidney disease Current Visit: No Status: Acute (2) Anasarca associated with disorder of kidney Current Visit: No Status: Acute (3) Diabetic nephropathy Current Visit: No Status: Acute (4) Gastroparesis Current Visit: No Status: Acute (5) Hypertension Current Visit: No Status: Acute (6) Insulin dependent diabetes mellitus Current Visit: No Status: Acute (7) Intractable nausea and vomiting Current Visit: No Status: Acute - Plan Intractable nausea vomiting Gastroparesis Acute kidney injury on CKD stage 3/4 Diabetes Accelerated Hypertension Dehydration Anasarca Abdominal pain Plan Monitor under telemetry IV hydration and moderate Will start on gagandeep Antihypertensives titrated Monitor renal parameters Nephrology consult Add on Protonix Insulin sliding scale Continue home medications and titrate as needed GI/DVT prophylaxis - Advance Directives Does patient have a Living Will: No Does patient have a Durable POA for Healthcare: No Time Spent Managing Pts Care (In Minutes): 43
[2019-10-23] MEDS ORDERED: HYDRALAZINE HCL 20 MG/ML VIAL ONE (22:53)
[2019-10-23] MEDS ORDERED: NA CHLORIDE 0.9% 1,000 ML IV SCH (23:00)
[2019-10-24 00:05] VITALS: BMI 28.0
[2019-10-24] MEDS: ONDANSETRON 4 MG/2 ML VIAL IV PRN ×3 (00:35→12:56)
[2019-10-24] MEDS: IPRATROPIUM BROM 0.5MG/2.5ML NEB SCH ×4 (04:10→19:30)
[2019-10-24] MEDS: METOCLOPRAMIDE 10 MG/2mL INJ IV PRN ×3 (05:35→22:32)
[2019-10-24 06:05] LABS: Absolute Lymphocytes (CBC) 0.8 K/uL (0.7-4.9); Basophils % 0.3 % (0-1.3); Hematocrit 29.1 % (36.0-45.0); Lymphocytes % 5.7 % (15.3-44.8); MPV 10.4 fL (7.6-11.3); RBC Red Blood Cell Count 3.26 M/uL (3.86-4.86)
[2019-10-24 06:26] LABS: Albumin 2.7 g/dL (3.4-5.0); Bilirubin Total 0.4 mg/dL (0.2-1.0); Magnesium 1.8 mg/dL (1.8-2.4); Phosphorus 4.8 mg/dL (2.5-4.9); Protein, Total 5.7 g/dL (6.4-8.2)
[2019-10-24] MEDS ORDERED: MAGNESIUM SULFATE 1 gm IVPB 1 GM/100 ML BAG IV ONE (08:00)
[2019-10-24] MEDS: INSULIN -REGULAR HUMAN 50 UNIT/0.5 ML ML SQ SCH ×4 (08:56→20:17)
[2019-10-24] MEDS ORDERED: METOCLOPRAMIDE 10 MG/2mL INJ IV ONE (09:00)
--- NOTE | 2019-10-24 11:38 | P.DS ---
Admission Date: 10/23/19 Discharge Date: 10/24/19 Disposition: ROUTINE DISCHARGE Discharge Condition: FAIR Reason for Admission: Abdominal pain, intractable nausea and vomiting Hospital Course: Patient with history of diabetes mellitus, CKD-3, HTN, and history of gastroparesis on Reglan 5 mg with meals. Patient admits to not taking meds regularly present in all intractable nausea and vomiting. She was started on IV fluids. She was noted with mild elevation in her creatinine from a previous baseline. Her symptoms improved with increase his Reglan to stable to tolerate p.o. better now. She will discharged to follow up with her PCP. Vital Signs/Physical Exam: Temp Pulse Resp BP Pulse Ox 98.9 F 103 H 17 125/66 92 10/24/19 08:00 10/24/19 08:00 10/24/19 08:00 10/24/19 08:00 10/24/19 08:00 General: Alert, Oriented x3 HEENT: Atraumatic, Normocephalic, PERRLA Neck: Supple, 2+ carotid pulse no bruit, JVD not distended Respiratory: Clear to auscultation bilaterally, Normal air movement Cardiovascular: No edema, Normal pulses, Regular rate/rhythm, Normal S1 S2 Gastrointestinal: Normal bowel sounds, Soft and benign Musculoskeletal: No clubbing, No swelling Integumentary: No rashes, No breakdown Neurological: Normal gait, Normal speech, Normal strength at 5/5 x4 extr Laboratory Data at Discharge: WBC 14.1 K/uL (4.3-10.9) H 10/24/19 05:40 Hgb 9.7 g/dL (12.0-15.0) L 10/24/19 05:40 Hct 29.1 % (36.0-45.0) L 10/24/19 05:40 Plt Count 196 K/uL (152-406) 10/24/19 05:40 PT 12.5 SECONDS (9.5-12.5) 10/23/19 17:38 INR 1.06 10/23/19 17:38 Sodium 139 mmol/L (136-145) 10/24/19 05:40 Potassium 4.0 mmol/L (3.5-5.1) 10/24/19 05:40 BUN 31 mg/dL (7-18) H 10/24/19 05:40 Creatinine 2.68 mg/dL (0.55-1.3) H 10/24/19 05:40 Glucose 309 mg/dL (74-106) H 10/24/19 05:40 Uric Acid 6.1 mg/dL (2.6-6.0) H 10/23/19 17:38 Phosphorus 4.8 mg/dL (2.5-4.9) D 10/24/19 05:40 Magnesium 1.8 mg/dL (1.8-2.4) 10/24/19 05:40 Total Bilirubin 0.4 mg/dL (0.2-1.0) 10/24/19 05:40 AST 10 U/L (15-37) L 10/24/19 05:40 ALT 25 U/L (12-78) 10/24/19 05:40 Alkaline Phosphatase 66 U/L (45-117) 10/24/19 05:40 Lipase 40 U/L (73-393) L 10/23/19 17:38 Home Medications: Metoprolol Tartrate 100 mg PO BID #60 tablet 06/10/19 Insulin NPH Hum/Reg Insulin Hm [Novolin 70-30 100 Unit/ml Vial] 10 unit SQ BID 06/15/19 Ergocalciferol (Vitamin D2) [Vitamin D2] 1 cap PO SEECOM 10/03/19 Amlodipine Besylate [Norvasc] 10 mg PO DAILY #30 tablet 10/06/19 Folic Acid/Vit B Complex and C [Sienna-Gissel Tablet] 0.8 mg PO DAILY #30 tablet 08/15 Tramadol HCl [Ultram] 50 mg PO Q8HP 10/15/19 Furosemide [Lasix*] 40 mg PO BID 30 Days #60 tab 10/20/19 Hydralazine [Apresoline*] 50 mg PO TID #90 tab 10/20/19 Pantoprazole [Protonix Tab*] 40 mg PO BIDAC #60 tab 10/20/19 Amoxicillin/Potassium Clav [Augmentin 500-125 Tablet] 1 each PO BID #10 tablet 10/24/19 Metoclopramide HCl [Reglan] 10 mg PO TIDWM #90 tablet 10/24/19 New Medications: Amoxicillin/Potassium Clav [Augmentin 500-125 Tablet] 1 each PO BID #10 tablet Metoclopramide HCl [Reglan] 10 mg PO TIDWM #90 tablet Patient Discharge Instructions: follow up with your PCP in 3-5 days Diet: ADA Activity: Ad shena Time spent managing pt's care (in minutes): 35
--- NOTE | 2019-10-24 11:41 | P.PN ---
Subjective Date of Service: 10/24/19 Chief Complaint: Abdominal pain, intractable nausea and vomiting Subjective: No new changes Review of Systems 10-point ROS is otherwise unremarkable Physical Examination - Vital Signs Temperature: 98.9 F Blood Pressure: 125/66 Pulse: 103 Respirations: 17 Pulse Ox (%): 92 - Physical Exam General: Alert, Oriented x3 HEENT: Atraumatic, Normocephalic Neck: Supple, 2+ carotid pulse no bruit, JVD not distended Respiratory: Clear to auscultation bilaterally, Normal air movement Cardiovascular: No edema, Normal pulses, Regular rate/rhythm, Normal S1 S2 Gastrointestinal: Normal bowel sounds, Soft and benign Musculoskeletal: No clubbing, No swelling - Studies Laboratory Data (last 24 hrs) 10/23/19 17:38: Uric Acid 6.1 H, Phosphorus 2.9 10/23/19 17:38: PT 12.5, INR 1.06 10/23/19 17:38: WBC 14.6 H D, Hgb 10.4 L, Hct 32.1 L D, Plt Count 217 10/23/19 17:38: Sodium 138, Potassium 4.0, BUN 27 H, Creatinine 2.47 H, Glucose 293 H, Magnesium 1.8, Total Bilirubin 0.5, AST 16, ALT 25, Alkaline Phosphatase 77, Lipase 40 L Assessment & Plan Physician Review: Patient Assessed, Agree with Above Assessment and Plan Physician Review Additional Text: # Gastroparesis- with nx and vx -increase reglan -c/w IVF fr now # Fluid overload - possible due to nephrotic syndrome - may need increase diuretics at discharge # HTN -resume po when able to take -IV labetalol IV prn # DM - on ISSS # LEFT HAND ULCER-start empirical abx
[2019-10-24] MEDS ORDERED: LABETALOL 20 MG/4ML SYRINGE IV PRN (11:43)
[2019-10-24] MEDS: HYDRALAZINE HCL 25 MG TABLET PO SCH ×2 (15:11→20:16)
[2019-10-24] MEDS: PANTOPRAZOLE 40MG TABLET PO SCH (16:31)
[2019-10-24] MEDS: METOPROLOL TAR 50 MG TAB PO SCH (20:16)
[2019-10-24] MEDS: FUROSEMIDE 40 MG TABLET PO SCH (20:16)
[2019-10-24] MEDS ORDERED: HOME MED 1 EA UNK (Metoprolol Tartrate [Metoprolol Tartrate] 100 MG) PO SCH (21:00)
[2019-10-25] MEDS: IPRATROPIUM BROM 0.5MG/2.5ML NEB SCH ×3 (01:05→13:18)
--- NOTE | 2019-10-25 03:43 | CON ---
Date of Consultation: 10/24/2019 Chief Complaint: Chronic kidney disease, stage 4; recent history of acute kidney injury. History Of Present Illness: Patient has responded to IV fluids. Patient has history of diabetes mellitus. She presented to the hospital because of severe nausea, vomiting. She has diabetic gastroparesis. She was started on IV fluids. She is advancing with p.o. intake. She was screened for acute pancreatitis. Patient has history of pancreatitis. Patient was complaining of diffuse abdominal pain. Currently, she is asymptomatic and she is tolerating p.o. intake. She denies diarrhea, melena, fever, chills. Denies nausea. Denies hematuria, dysuria. Review of Systems: Constitutional: Denies fever or chills. Eyes: Denies vision changes. Ears, Nose, Mouth and Throat: Denies sore throat, earache. Respiratory: Denies PND, orthopnea. Cardiovascular: Denies chest pain, palpitation. GI: Had nausea, vomiting, generalized abdominal pain. : Denies hematuria, dysuria. All other systems reviewed and all are negative. Past Medical History: Diabetes mellitus; diabetic kidney disease; chronic kidney disease, stage 4; hypertension; hypertensive heart and kidney disease; diabetic gastroparesis; history of pancreatitis; chronic diastolic congestive heart failure. Past Surgical History: Pancreatic pseudocystectomy, appendectomy, cholecystectomy. Family History: No kidney disease in the family. Social History: Denies tobacco, alcohol, or illicit drugs. Physical Examination: General: Patient is awake, alert. She is follows commands. Eyes: Anicteric sclerae. EOMI. Ears, Nose, Mouth and Throat: Oral mucosa moist. No pallor. Neck: Supple. No bruits. Lungs: Clear to auscultation bilaterally. No rhonchi, no wheezing. Heart: S1, S2. No pericardial friction rub. Abdomen: Soft and benign. No rebound. No guarding. Some tenderness in epigastrium. Bowel sounds present. Extremities: No edema, no clubbing, no cyanosis. Neurological: Moving extremities. Cranial nerves intact. No tremor. Laboratory Data: WBC 14.6, hemoglobin 10.6, hematocrit 32.5, platelet count 217 ,000, creatinine 2.47, glucose 293, potassium 4.0, sodium 138, BUN 27, magnesium 1.8, total bilirubin 0.5, lipase 40. Impression And Plan: 1. Worsening stage 4 chronic kidney disease, prerenal azotemia. Continue IV fluids. 2. Patient has nonoliguric urine output. Avoid nephrotoxic medication. 3. Anasarca associated with advanced chronic kidneys. Continue low-sodium diet. 4. Chronic congestive heart failure with diastolic dysfunction. Monitor blood pressure, adjust treatment. Patient presented with hypertensive urgency. Continue to adjust blood pressure medication. Plan is to use IV hydralazine for blood pressure control. 5. Diabetic gastroparesis. Patient is on antinausea medication. She is advancing with p.o. intake. 6. Insulin-dependent diabetes, complicated with diabetic kidney disease. Patient may benefit from JARRETT inhibitor for blood pressure control and antiproteinuric effect. Monitor potassium level and adjust diet to prevent hyperkalemia. 7. Accelerated hypertension. IV medication will be used when the patient does not tolerate p.o. medication. ROSEANNA/NATANAEL Voice ID: [id number] Report ID: [id number]
[2019-10-25 05:25] LABS: Magnesium 2.1 mg/dL (1.8-2.4); Potassium 3.5 mmol/L (3.5-5.1)
[2019-10-25] MEDS ORDERED: POTASSIUM CL SA 10 MEQ TAB PO ONE (05:35)
[2019-10-25] MEDS: INSULIN -REGULAR HUMAN 50 UNIT/0.5 ML ML SQ SCH ×2 (07:30→11:30)
[2019-10-25] MEDS: METOPROLOL TAR 50 MG TAB PO SCH (08:51)
[2019-10-25] MEDS: PANTOPRAZOLE 40MG TABLET PO SCH (08:51)
[2019-10-25] MEDS: HYDRALAZINE HCL 25 MG TABLET PO SCH (08:52)
[2019-10-25] MEDS: FUROSEMIDE 40 MG TABLET PO SCH (08:52)
[2019-10-25] MEDS ORDERED: FOLIC ACID PO SCH (09:00)
[2019-10-25] MEDS ORDERED: VIT B COMPLEX AND C PO SCH (09:00)
[2019-10-25] MEDS ORDERED: AMLODIPINE 10 MG TAB PO SCH (09:00)
[2019-10-25] MEDS: METOCLOPRAMIDE 10 MG/2mL INJ IV PRN (09:13)
[2019-10-25 09:14] VITALS: BP 189/92
[2019-10-25 10:38] VITALS: TEMP 98.8
[2019-10-25 11:40] VITALS: O2SAT 96
--- NOTE | 2019-10-25 11:47 | EKG ---
Test Date: 2019-10-23 Test Time: 18:18:58 Senior Market Intelligence Consultant: CHIP MEASUREMENT RESULTS: Intervals: Rate: 98 TN: 118 QRSD: 64 QT: 352 QTc: 449 [place]: P: 63 TN: 118 QRS: -10 T: 37 INTERPRETIVE STATEMENTS: Normal sinus rhythm Septal infarct, age undetermined Abnormal ECG Compared to ECG 10/15/2019 14:57:52 Sinus tachycardia no longer present Myocardial infarct finding still present Electronically Signed On 10-25-19 11:42:29 DIANETICIST by Marquez Walter
--- NOTE | 2019-10-25 12:40 | P.PN ---
Subjective Date of Service: 10/25/19 Chief Complaint: Abdominal pain, intractable nausea and vomiting Subjective: No new changes, Tolerating diet, Improving Physical Examination - Vital Signs Temperature: 98.8 F Blood Pressure: 189/92 Pulse: 101 Respirations: 20 Pulse Ox (%): 95 - Physical Exam General: Alert, Oriented x3 HEENT: Atraumatic, Normocephalic Neck: Supple, 2+ carotid pulse no bruit Respiratory: Clear to auscultation bilaterally, Diminished Cardiovascular: No edema, Regular rate/rhythm Assessment & Plan - Problems (Diagnosis) (1) GUS (acute kidney injury) Current Visit: No Status: Acute (2) Acute worsening of stage 4 chronic kidney disease Current Visit: No Status: Acute (3) Anasarca associated with disorder of kidney Current Visit: No Status: Acute (4) Anemia Onset Date: 05/14/16 Current Visit: No Status: Acute (5) Diabetic nephropathy Current Visit: No Status: Acute Physician Review: Patient Assessed, Agree with Above Assessment and Plan Physician Review Additional Text: # Gastroparesis- improving -c/w with increased reglan -c/w IVF fr now # Fluid overload - still possible due to nephrotic syndrome - may need increase diuretics at discharge # HTN -elevated , restart home meds -IV labetalol IV prn # DM - on ISSS # LEFT HAND ULCER-started on abx
== END 2019-10-25 13:40 | disposition home or self-care (01) | DRG 683 ==
LOC: ER 15:34 → ERHOLD 22:23 → 2ND 23:27
PROVIDERS: ADMIT Family Medicine; ATTEND Internal Medicine
DX: N17.9 Acute kidney failure, unspecified (principal); I13.0 Hypertensive heart and chronic kidney disease with heart failure and stage 1 through stage 4 chronic kidney disease, or unspecified chronic kidney disease; I50.32 Chronic diastolic (congestive) heart failure; E11.9 Type 2 diabetes mellitus without complications; N18.4 Chronic kidney disease, stage 4 (severe); E11.22 Type 2 diabetes mellitus with diabetic chronic kidney disease; K21.9 Gastro-esophageal reflux disease without esophagitis; K44.9 Diaphragmatic hernia without obstruction or gangrene; E11.43 Type 2 diabetes mellitus with diabetic autonomic (poly)neuropathy; K31.84 Gastroparesis; L98.499 Non-pressure chronic ulcer of skin of other sites with unspecified severity; D64.9 Anemia, unspecified
CPT/HCPCS: 36415; 71045; 74176; 76377; 80048; 80053; 80076; 81003; 82947; 83615; 83690; 83735; 83880; 84100; 84484; 84550; 84703; 85025; 85610; 87070; 87205; 93005; 94760; 96374; 96375; 99285; J0360; J1200; J1940; J2405; J2550; J2765; J3475; J7030

== ENCOUNTER 2019-10-30 16:16 | Inpatient (IN) | payer SELFPAY ==
--- OUTSIDE RECORDS SUMMARY | 2019-10-30 16:18 | XMS REPORT ---
:1980 [facility] Address [address] [place] [address] [address] [place] [address] Care Team Providers Name Role Phone Unavailable Unavailable Unavailable Problems This patient has no known problems. Allergies, Adverse Reactions, Alerts This patient has no known allergies or adverse reactions. Medications This patient has no known medications.
[2019-10-30] MEDS ORDERED: NA CHLORIDE 0.9% 1,000 ML ONE ×3 (17:09→23:45)
[2019-10-30] MEDS ORDERED: FAMOTIDINE 20 MG/2 ML VIAL IV ONE (17:09)
[2019-10-30] MEDS ORDERED: ONDANSETRON 4 MG/2 ML VIAL ONE ×4 (17:09→23:36)
[2019-10-30] MEDS ORDERED: PANTOPRAZOLE 40 MG INJ ONE (17:09)
[2019-10-30 17:17] LABS: Absolute Lymphocytes (CBC) 1.7 K/uL (0.7-4.9); Basophils % 1.2 % (0-1.3); Hematocrit 37.2 % (36.0-45.0); Lymphocytes % 15.3 % (15.3-44.8); MPV 10.4 fL (7.6-11.3); RBC Red Blood Cell Count 4.21 M/uL (3.86-4.86)
[2019-10-30 17:38] LABS: Albumin 3.5 g/dL (3.4-5.0); Bilirubin Direct 0.2 mg/dL (0-0.2); Bilirubin Total 0.7 mg/dL (0.2-1.0); Phosphorus 2.5 mg/dL (2.5-4.9); Potassium 3.7 mmol/L (3.5-5.1); Protein, Total 7.2 g/dL (6.4-8.2)
[2019-10-30 17:52] LABS: Blood Morphology Comment NOT SEEN (NOT SEEN); Platelet Estimate ADEQ; Urine White Blood Cell Casts OK
[2019-10-30 18:01] LABS: Urine Blood 3+ (NEG); Urine Glucose 1+ (NEG); Urine Protein 3+ (NEG); Urine pH 8.5 (5.0-7.0)
[2019-10-30 18:15] LABS: Urine Bacteria 20-50 /HPF (<20); Urine RBC 20-50 /HPF (NONE SEEN)
[2019-10-30 18:16] LABS: Urine Culture Reflex Order REFLEXED
[2019-10-30] MEDS ORDERED: HYDRALAZINE HCL 20 MG/ML VIAL ONE (19:12)
[2019-10-30] MEDS ORDERED: PROMETHAZINE INJ 25 MG/ML AMP ONE (19:16)
[2019-10-30] MEDS ORDERED: MAGNE/ALUM HYDROXD 30 ML UCUP ONE (21:01)
[2019-10-30] MEDS ORDERED: LIDOCAINE VISCOUS 2% SOLN 15 ML UDC ONE (21:02)
--- NOTE | 2019-10-30 21:13 | ER ---
Nurse's Notes [facility] Name: Mercedes Marin Age: 39 yrs Sex: Female : 1980 Arrival Date: 10/30/2019 Time: 16:18 Bed 13 Private MD: Diagnosis: Nausea and vomiting-intractable;Diabetes mellitus due to underlying condition with hyperglycemia;Chronic kidney disease (CKD) Presentation: 10/30 16:30 Presenting complaint: Patient states: abd pain and vomiting that began yesterday, is ss much worse today. Transition of care: patient was not received from another setting of care. Onset of symptoms was October 29, 2019. Risk Assessment: Do you want to hurt yourself or someone else? Patient reports no desire to harm self or others. Initial Sepsis Screen: Does the patient meet any 2 criteria? RR > 20 per min. Does the patient have a suspected source of infection? No. Patient's initial sepsis screen is negative. Care prior to arrival: None. 16:30 Method Of Arrival: Wheelchair ss 16:30 Acuity: ALONDRA 2 ss Triage Assessment: 10/31 00:24 General: Behavior is calm, cooperative. mg2 07:00 GI: Reports nausea. bp PATTERNMAKER HAND: 10/30 19:46 lmp -unknown mg2 Historical: - Allergies: 16:31 No Known Allergies; ss - Home Meds: 10/31 00:09 metoprolol tartrate 100 mg Oral tab 1 tab 2 times per day [Active]; Novolin 70/30 mg2 [place] Sub-Q [Active]; - PMHx: 10/30 16:31 Diabetes - IDDM; Hypertension; Pancreatitis; ss - PSHx: 16:31 Cholecystectomy; ss - Immunization history:: Adult Immunizations up to date. - Social history:: Smoking status: Patient/guardian denies using tobacco. - Ebola Screening: : Patient denies exposure to infectious person Patient denies travel to an Ebola-affected area in the 21 days before illness onset. Screenin:27 Abuse screen: Denies threats or abuse. Denies injuries from another. Nutritional mg2 screening: No deficits noted. Tuberculosis screening: No symptoms or risk factors identified. Fall Risk IV access (20 points). Assessment: 18:27 General: Appears uncomfortable. Pain: Complains of pain in abdomen and epigastric area. mg2 Neuro: Level of Consciousness is awake, alert, obeys commands, Oriented to person, place, time, situation. Cardiovascular: Capillary refill < 3 seconds Patient's skin is warm and dry. Respiratory: Airway is patent Respiratory effort is even, unlabored, Respiratory pattern is regular, symmetrical. GI: Abdomen is round non-distended. : Urine is see urine dip. EENT: No signs and/or symptoms were reported regarding the EENT system. Derm: Skin is intact, is healthy with good turgor, Skin is pink, warm \T\ dry. normal. Musculoskeletal: Circulation, motion, and sensation intact. Capillary refill < 3 seconds. 19:47 Reassessment: Patient appears in no apparent distress at this time. Patient and/or mg2 family updated on plan of care and expected duration. Pain level reassessed. Patient is alert, oriented x 3, equal unlabored respirations, skin warm/dry/pink. Patient states feeling better. Patient states symptoms have improved. 20:05 Reassessment: patient refused to drink water now, she said she is still nauseated. mg2 10/31 00:24 Reassessment: documentation continued in [facility] Vital Signs: 10/30 16:31 BP 211 / 104; Pulse 82; Resp 21; Temp 97.2(TE); Pulse Ox 100% on R/A; Weight 62.6 kg ss (R); Height 5 ft. 2 in. (157.48 cm); 18:26 BP 193 / 84; Pulse 88; Resp 18; Pulse Ox 99% on R/A; mg2 19:17 BP 172 / 85; Pulse 91; Resp 18; Pulse Ox 100% on R/A; mg2 19:46 BP 148 / 75; Pulse 87; Resp 18; Pulse Ox 97% on R/A; mg2 20:33 BP 140 / 70; Pulse 92; Resp 18; Pulse Ox 98% on R/A; rv 20:46 BP 133 / 68; Pulse 95; Resp 18; Pulse Ox 98% on R/A; mg2 16:31 Body Mass Index 25.24 (62.60 kg, 157.48 cm) ED Course: 16:18 Patient arrived in ED. mr 16:31 Triage completed. ss 16:31 Arm band placed on right wrist. ss 16:33 Lorenzo Cotto PA is PHCP. cp 16:33 Washington Shaffer MD is Attending Physician. cp 17:23 Inserted saline lock: 22 gauge in left forearm, using aseptic technique. mg2 17:41 Urine collected: EKG done, by ED staff, reviewed by Lorenzo WILSON. kj1 18:25 Jc Cervantes, RN is Primary Nurse. mg2 18:28 Patient has correct armband on for positive identification. mg2 18:28 No provider procedures requiring assistance completed. mg2 21:10 Pascual Galvez MD is Hospitalizing Provider. cp 21:37 XRAY Abdomen Acute Series In Process Unspecified. EDMS 10/31 00:24 Report given to WALDEMAR Hansen. mg2 07:25 Primary Nurse role handed off by Jc Cervantes, WALDEMAR bp 07:25 Wes Marcelino RN is Primary Nurse. bp 10:22 Patient admitted, IV remains in place. bp Administered Medications: 10/30 17:22 Drug: NS 0.9% 1000 ml Route: IV; Rate: 1 bolus; Site: left forearm; mg2 19:46 Follow up: Response: No adverse reaction; IV Status: Completed infusion; IV Intake: mg2 1000ml 17:22 Drug: Zofran 4 mg Route: IVP; Site: left forearm; mg2 19:45 Follow up: Response: No adverse reaction mg2 17:22 Drug: ProTONIX 40 mg Route: IVP; Site: left forearm; mg2 19:45 Follow up: Response: No adverse reaction mg2 17:22 Drug: Pepcid 20 mg Route: IVP; Site: left forearm; mg2 19:45 Follow up: Response: No adverse reaction mg2 18:26 Drug: Zofran 4 mg Route: IVP; Site: left forearm; mg2 19:44 Follow up: Response: No adverse reaction mg2 19:07 CANCELLED (Physician Discretion): Phenergan Suppository 50 mg OH once cp 19:15 Drug: hydrALAZINE 10 mg Route: IV; Rate: calculated rate; Site: left forearm; mg2 19:44 Follow up: Response: No adverse reaction; IV Status: Completed infusion mg2 19:16 CANCELLED (Duplicate Order): Phenergan 25 mg IVP once mg2 19:17 Drug: Phenergan 25 mg Route: IVP; Site: left forearm; mg2 19:44 Follow up: Response: No adverse reaction mg2 21:05 Drug: NS 0.9% 1000 ml Route: IV; Rate: 1 bolus; Site: left forearm; mg2 10/31 00:23 Follow up: Response: No adverse reaction; IV Status: Completed infusion; IV Intake: mg2 1000ml 10/30 21:06 Drug: Zofran 4 mg Route: IVP; Site: left forearm; mg2 10/31 00:23 Follow up: Response: No adverse reaction mg2 10/30 21:07 Drug: GI Cocktail without - (Maalox Suspension 30 ml, Lidocaine Liquid 2 % 15 mg2 ml) Route: PO; 10/31 00:21 Follow up: Response: No adverse reaction; Marked relief of symptoms mg2 Intake: 10/30 19:46 IV: 1000ml; Total: 1000ml. mg2 10/31 00:23 IV: 1000ml; Total: 2000ml. mg2 Outcome: 10/30 21:11 Decision to Hospitalize by Provider. cp 23:00 Admitted to ER Hold. Please see [facility] for further documentation. 10/31 10:22 Admitted to Med/surg accompanied by tech, via wheelchair, room 214, with chart, Report bp called to PARKER MEDEIROS Condition: stable Instructed on the need for admit. 10:54 Patient left the ED. ss Signatures: Dispatcher [employer] EDNY Lila Lucas Shelby RN RN ss Lorenzo Cotto PA PA cp Habalo, Winsy Wes Marcelino RN RN bp Gardose, Michele, RN RN mg2 Campbell Howard RN RN rv Jackson, Kandis kj1
--- NOTE | 2019-10-30 21:14 | EDPHYS ---
Physician Documentation [facility] Name: Mercedes Marin Age: 39 yrs Sex: Female : 1980 Arrival Date: 10/30/2019 Time: 16:18 Bed 13 Private MD: ED Physician Washington Shaffer HPI: 10/30 16:45 This 39 yrs old Female presents to ER via Wheelchair with complaints of cp Vomiting. 16:45 The patient presents to the emergency department with vomiting, that is continuous, cp described as dark brown, abdominal pain, of the epigastric area. Possible causes: unknown. Associated signs and symptoms: Pertinent positives: abdominal pain, anorexia, Pertinent negatives: constipation, diarrhea, fever, GI bleeding. Severity of symptoms: in the emergency department the symptoms are unchanged despite home interventions. 16:45 Onset: The symptoms/episode began/occurred yesterday, and became worse this morning. cp SPECIAL OFFICER: 19:46 lmp -unknown mg2 Historical: - Allergies: 16:31 No Known Allergies; ss - Home Meds: 10/31 00:09 metoprolol tartrate 100 mg Oral tab 1 tab 2 times per day [Active]; Novolin 70/30 mg2 [place] Sub-Q [Active]; - PMHx: 10/30 16:31 Diabetes - IDDM; Hypertension; Pancreatitis; ss - PSHx: 16:31 Cholecystectomy; ss - Immunization history:: Adult Immunizations up to date. - Social history:: Smoking status: Patient/guardian denies using tobacco. - Ebola Screening: : Patient denies exposure to infectious person Patient denies travel to an Ebola-affected area in the 21 days before illness onset. ROS: 16:46 Eyes: Negative for injury, pain, redness, and discharge. cp 16:46 Constitutional: Positive for poor PO intake, Negative for body aches, chills, fever. 16:48 ENT: Negative for drainage from ear(s), ear pain, sore throat, difficulty swallowing, cp difficulty handling secretions. 16:48 Cardiovascular: Negative for chest pain. 16:48 Respiratory: Negative for cough, shortness of breath, wheezing. 16:48 Abdomen/GI: Positive for abdominal pain, nausea and vomiting, Negative for diarrhea, constipation, hematemesis, black/tarry stool, rectal bleeding. 16:48 Back: Negative for pain at rest, pain with movement, radiated pain. 16:48 : Negative for urinary symptoms. 16:48 Neuro: Negative for altered mental status, headache, syncope, weakness. 16:48 Skin: Negative for rash. cp 16:48 All other systems are negative. Exam: 16:55 Constitutional: The patient appears in no acute distress, alert, awake, cp non-diaphoretic, non-toxic, well developed, well nourished, uncomfortable. 16:55 Head/Face: Normocephalic, atraumatic. cp 16:55 Eyes: Periorbital structures: appear normal, Conjunctiva: normal, no exudate, no injection, Sclera: no appreciated abnormality, Lids and lashes: appear normal, bilaterally. 16:55 ENT: External ear(s): are unremarkable, Nose: is normal, Mouth: Lips: moist, Oral mucosa: pink and intact, moist, Posterior pharynx: Airway: no evidence of obstruction, patent, swelling, is not appreciated, erythema, is not appreciated, exudate, is not appreciated. 16:55 Neck: ROM/movement: pain, is not appreciated, limited range of motion, is not appreciated, Meningeal signs: are not present, nuchal rigidity, is not appreciated. 16:55 Chest/axilla: Inspection: normal, Palpation: is normal, no crepitus, no tenderness. 16:55 Cardiovascular: Rate: normal, Rhythm: regular, Edema: is not appreciated, JVD: is not appreciated. 16:55 Respiratory: the patient does not display signs of respiratory distress, Respirations: normal, no use of accessory muscles, no retractions, no splinting, no tachypnea, labored breathing, is not present, Breath sounds: are clear throughout, no decreased breath sounds, no stridor, no wheezing. 16:55 Abdomen/GI: Inspection: abdomen appears normal, Bowel sounds: active, all quadrants, Palpation: soft, in all quadrants, moderate abdominal tenderness, in the epigastric area, rebound tenderness, is not appreciated, voluntary guarding, is elicited in the epigastric area. 16:55 Back: pain, is absent, ROM is normal. 16:55 Skin: no rash present. 16:55 Neuro: Orientation: is normal, Mentation: is normal, Cerebellar function: is grossly normal, Motor: moves all fours, strength is normal, Sensation: is normal. 17:34 ECG was reviewed by the Attending Physician. Vital Signs: 16:31 BP 211 / 104; Pulse 82; Resp 21; Temp 97.2(TE); Pulse Ox 100% on R/A; Weight 62.6 kg ss (R); Height 5 ft. 2 in. (157.48 cm); 18:26 BP 193 / 84; Pulse 88; Resp 18; Pulse Ox 99% on R/A; mg2 19:17 BP 172 / 85; Pulse 91; Resp 18; Pulse Ox 100% on R/A; mg2 19:46 BP 148 / 75; Pulse 87; Resp 18; Pulse Ox 97% on R/A; mg2 20:33 BP 140 / 70; Pulse 92; Resp 18; Pulse Ox 98% on R/A; rv 20:46 BP 133 / 68; Pulse 95; Resp 18; Pulse Ox 98% on R/A; mg2 16:31 Body Mass Index 25.24 (62.60 kg, 157.48 cm) MDM: 16:38 Patient medically screened. 21:00 Data reviewed: vital signs, nurses notes, lab test result(s), EKG. 21:00 Response to treatment: the patient's symptoms have mildly improved after treatment, Patient continues to have nausea and vomited after attempting oral fluids. Will admit for continued monitoring and treatment. 21:10 Physician consultation: Pascual Galvez MD was called at 21:05, was contacted at 21:05, regarding admission, to the telemetry unit. patient's condition. 10/30 16:48 Order name: Basic Metabolic Panel; Complete Time: 18:20 10/30 18:20 Interpretation: Normal except: GLUC 252; BUN 24; CRE 2.32; GFR 23; CA 9.4. 10/30 16:48 Order name: CBC with Diff; Complete Time: 18:20 10/30 18:20 Interpretation: Normal except: WBC 11.1; RBC 4.21; HGB 12.3; HCT 37.2; HEATHER% 75.6; NEUT cp A 8.4. 10/30 16:48 Order name: Creatinine for Radiology; Complete Time: 18:20 10/30 16:48 Order name: Hepatic Function; Complete Time: 18:20 10/30 18:20 Interpretation: Normal except: GLOB 3.7; A/G 0.9. cp / 16:48 Order name: Lipase; Complete Time: 18:20 cp 10/30 16:48 Order name: Urine Microscopic Only; Complete Time: 18:20 cp / 18:21 Interpretation: Normal except: UWBC 5-10; URBC 20-50; UBACT 20-50; SQEPI 10-20. cp 10/30 16:48 Order name: Magnesium; Complete Time: 18:20 cp 10/30 16:48 Order name: Phosphorus; Complete Time: 18:20 cp 10/30 17:48 Order name: Urine Dipstick--Ancillary (enter results); Complete Time: 18:20 em1 10/30 18:21 Interpretation: Normal except: UGLUC 1+; UBLD 3+; UPH 8.5; UPROT 3+; UESTR TRACE. cp 10/30 17:48 Order name: Urine --Ancillary (enter results); Complete Time: 18:20 em1 10/30 17:53 Order name: CBC Smear Scan; Complete Time: 18:20 EDMS 10/30 18:23 Order name: Urine Culture EDMS 10/30 21:46 Order name: CBC with Automated Diff EDMS 10/30 21:46 Order name: CBC with Automated Diff EDMS 10/30 21:10 Order name: XRAY Abdomen Acute Series 10/30 21:46 Order name: Comprehensive Metabolic Panel EDMS 10/30 21:46 Order name: Comprehensive Metabolic Panel EDMS 10/31 09:09 Order name: Glucose, Ancillary Testing EDMS 10/30 16:39 Order name: Accucheck Blood Glucose; Complete Time: 18:30 cp 10/30 16:48 Order name: IV Saline Lock; Complete Time: 17:23 cp 10/30 16:48 Order name: Labs collected and sent; Complete Time: 17:23 cp 10/30 16:48 Order name: Urine Dipstick-Ancillary (obtain specimen); Complete Time: 17:46 cp 10/30 16:48 Order name: Urine Test (obtain specimen); Complete Time: 17:46 cp 10/30 16:48 Order name: EKG; Complete Time: 16:49 cp 10/30 16:48 Order name: EKG - Nurse/Tech; Complete Time: 18:24 cp 10/30 18:20 Order name: Vital Signs; Complete Time: 18:25 cp 10/30 21:46 Order name: CONS Pharmacy Consult EDMS 10/30 21:46 Order name: NPO EDMS EC:34 Rate is 85 beats/min. Rhythm is regular. VT interval is normal. QRS interval is normal. cp QT interval is normal. T waves are Inverted in lead aVL. Interpreted by me. Reviewed by me. Administered Medications: 17:22 Drug: NS 0.9% 1000 ml Route: IV; Rate: 1 bolus; Site: left forearm; mg2 19:46 Follow up: Response: No adverse reaction; IV Status: Completed infusion; IV Intake: mg2 1000ml 17:22 Drug: Zofran 4 mg Route: IVP; Site: left forearm; mg2 19:45 Follow up: Response: No adverse reaction mg2 17:22 Drug: ProTONIX 40 mg Route: IVP; Site: left forearm; mg2 19:45 Follow up: Response: No adverse reaction mg2 17:22 Drug: Pepcid 20 mg Route: IVP; Site: left forearm; mg2 19:45 Follow up: Response: No adverse reaction mg2 18:26 Drug: Zofran 4 mg Route: IVP; Site: left forearm; mg2 19:44 Follow up: Response: No adverse reaction mg2 19:07 CANCELLED (Physician Discretion): Phenergan Suppository 50 mg VT once cp 19:15 Drug: hydrALAZINE 10 mg Route: IV; Rate: calculated rate; Site: left forearm; mg2 19:44 Follow up: Response: No adverse reaction; IV Status: Completed infusion mg2 19:16 CANCELLED (Duplicate Order): Phenergan 25 mg IVP once mg2 19:17 Drug: Phenergan 25 mg Route: IVP; Site: left forearm; mg2 19:44 Follow up: Response: No adverse reaction mg2 21:05 Drug: NS 0.9% 1000 ml Route: IV; Rate: 1 bolus; Site: left forearm; mg2 10/31 00:23 Follow up: Response: No adverse reaction; IV Status: Completed infusion; IV Intake: mg2 1000ml 10/30 21:06 Drug: Zofran 4 mg Route: IVP; Site: left forearm; mg2 10/31 00:23 Follow up: Response: No adverse reaction mg2 10/30 21:07 Drug: GI Cocktail without - (Maalox Suspension 30 ml, Lidocaine Liquid 2 % 15 mg2 ml) Route: PO; 10/31 00:21 Follow up: Response: No adverse reaction; Marked relief of symptoms mg2 Disposition: 10/30/19 21:11 Hospitalization ordered by Pascual Galvez for Observation. Preliminary diagnosis are Nausea and vomiting - intractable, Diabetes mellitus due to underlying condition with hyperglycemia, Chronic kidney disease (CKD). - Bed requested for Telemetry/MedSurg (observation). - Status is Observation. ss - Condition is Stable. - Problem is an acute exacerbation. - Symptoms have improved. UTI on Admission? No Addendum: 11/02/2019 06:42 Co-signature as Attending Physician, Washington Shaffer MD I agree with the assessment and k dr plan of care. Signatures: Dispatcher [employer] EDMS Talia Jackson RN RN mw Woody, Diana, RN RN dw Rittger, Kevin, MD MD [email or web address] Marbella Allen RN RN Lorenzo Cotto PA PA cp Jc Cervantes RN RN mg2 Corrections: (The following items were deleted from the chart) 10/30 18:20 18:20 Normal except: GLUC 252; BUN 24; CRE 2.32; GFR 23. cp cp 19:07 19:07 Phenergan Suppository 50 mg VT once ordered. cp cp 19:16 19:16 Phenergan 25 mg IVP once ordered. mg2 mg2 21:12 21:11 Hospitalization Ordered by Pascual Galvez MD for Observation. Preliminary cp diagnosis is Nausea and vomiting - intractable; Diabetes mellitus due to underlying condition with hyperglycemia. Bed requested for Telemetry/MedSurg (observation). Status is Observation. Condition is Stable. Problem is an acute exacerbation. Symptoms have improved. UTI on Admission? No. cp 21:47 21:12 10/30/2019 21:11 Hospitalization Ordered by Pascual Galvez MD for Observation. mw Preliminary diagnosis is Nausea and vomiting - intractable; Diabetes mellitus due to underlying condition with hyperglycemia; Chronic kidney disease (CKD). Bed requested for Telemetry/MedSurg (observation). Status is Observation. Condition is Stable. Problem is an acute exacerbation. Symptoms have improved. UTI on Admission? No. cp 10/31 09:54 10/30 21:47 10/30/2019 21:11 Hospitalization Ordered by Pascual Galvez MD for dw Observation. Preliminary diagnosis is Nausea and vomiting - intractable; Diabetes mellitus due to underlying condition with hyperglycemia; Chronic kidney disease (CKD). Bed requested [facility] ER HOLD. Status is Observation. Condition is Stable. Problem is an acute exacerbation. Symptoms have improved. UTI on Admission? No. mw 10/31 10:54 09:54 10/30/2019 21:11 Hospitalization Ordered by Pascual Galvez MD for Observation. ss Preliminary diagnosis is Nausea and vomiting - intractable; Diabetes mellitus due to underlying condition with hyperglycemia; Chronic kidney disease (CKD). Bed requested for Telemetry/MedSurg (observation). Status is Observation. Condition is Stable. Problem is an acute exacerbation. Symptoms have improved. UTI on Admission? No. dw 11/01 02:39 10/30 16:45 Onset: The symptoms/episode began/occurred this morning, cp cp
[2019-10-30] MEDS ORDERED: ACETAMINOPHEN 500 MG TAB PO PRN (21:42)
[2019-10-30] MEDS ORDERED: TRAMADOL HCL 50 MG TAB PO SCH (22:00)
[2019-10-30] MEDS: NA CHLORIDE 0.9% 1,000 ML IV SCH (22:00)
[2019-10-30] MEDS ORDERED: LORazepam 2 MG/ML VIAL IV ONE (22:30)
[2019-10-30] MEDS: ONDANSETRON 4 MG/2 ML VIAL IV PRN (23:39)
[2019-10-30] MEDS ORDERED: LORazepam 2 MG/ML VIAL ONE (23:45)
[2019-10-31 00:12] VITALS: BMI 25.6
[2019-10-31] MEDS ORDERED: ONDANSETRON 4 MG/2 ML VIAL ONE ×2 (04:37→09:24)
[2019-10-31] MEDS: ONDANSETRON 4 MG/2 ML VIAL IV PRN ×3 (04:52→17:10)
[2019-10-31] MEDS ORDERED: LORazepam 2 MG/ML VIAL ONE (05:45)
[2019-10-31] MEDS ORDERED: LORazepam 2 MG/ML VIAL IV ONE (05:49)
[2019-10-31 05:50] LABS: Absolute Lymphocytes (CBC) 0.9 K/uL (0.7-4.9); Basophils % 0.5 % (0-1.3); Hematocrit 31.2 % (36.0-45.0); Lymphocytes % 8.5 % (15.3-44.8); MPV 10.5 fL (7.6-11.3); RBC Red Blood Cell Count 3.49 M/uL (3.86-4.86)
[2019-10-31 06:05] LABS: Bilirubin Total 0.5 mg/dL (0.2-1.0)
[2019-10-31] MEDS: PANTOPRAZOLE 40MG TABLET PO SCH ×2 (07:30→17:06)
[2019-10-31] MEDS: NA CHLORIDE 0.9% 1,000 ML IV SCH ×2 (08:00→17:47)
[2019-10-31] MEDS: METOCLOPRAMIDE 5 MG TAB PO SCH ×4 (08:00→22:09)
--- NOTE | 2019-10-31 08:26 | P.HP ---
Certification for Inpatient Patient admitted to: Observation With expected LOS: <2 Midnights Patient will require the following post-hospital care: None Practitioner: I am a practitioner with admitting privileges, knowledge of patient current condition, hospital course, and medical plan of care. Services: Services provided to patient in accordance with Admission requirements found in Title 42 Section 412.3 of the Code of Federal Regulations Patient History Date of Service: 10/31/19 Reason for admission: Intractable nausea and vomiting History of Present Illness: Patient is a 39-year-old female who was mainly [place] speaking, and she came to the hospital with intractable nausea and vomiting. Patient will be admitted to the hospital for further treatment. Patient has had numerous admissions for similar complaints. She has gastroparesis. She is not really improving. She will need admission for further evaluation. Patient also has a history of diabetic nephropathy. Patient's creatinine has been slightly elevated. Will continue to monitor after IV hydration. Hopefully this continues to improve and will get back down to her baseline prior to discharge. Allergies No Known Allergies Allergy (Verified 10/15/19 20:41) Home Medications: Metoprolol Tartrate 100 mg PO BID #60 tablet 06/10/19 Insulin NPH Hum/Reg Insulin Hm [Novolin 70-30 100 Unit/ml Vial] 10 unit SQ BID 06/15/19 Ergocalciferol (Vitamin D2) [Vitamin D2] 1 cap PO SEECOM 10/03/19 Amlodipine Besylate [Norvasc] 10 mg PO DAILY #30 tablet 10/06/19 Folic Acid/Vit B Complex and C [[place]ienna-Gissel Tablet] 0.8 mg PO DAILY #30 tablet 08/15 Tramadol HCl [Ultram] 50 mg PO Q8HP 10/15/19 Furosemide [Lasix*] 40 mg PO BID 30 Days #60 tab 10/20/19 Hydralazine [Apresoline*] 50 mg PO TID #90 tab 10/20/19 Pantoprazole [Protonix Tab*] 40 mg PO BIDAC #60 tab 10/20/19 Amoxicillin/Potassium Clav [Augmentin 500-125 Tablet] 1 each PO BID #10 tablet 10/24/19 Metoclopramide HCl [Reglan] 10 mg PO TIDWM #90 tablet 10/24/19 - Past Medical/Surgical History Has patient received pneumonia vaccine in the past: Yes Diabetic: Yes -: Diabetes mellitus type 2, insulin dependent -: Hypertension -: Chronic kidney disease stage 4 -: Diabetic nephropathy -: GERD with hiatal hernia -: Chronic nausea and vomiting -: Chronic anemia with Iron/B12 deficiency -: History of pancreatitis -: Chronic diastolic CHF -: Pancreatic pseudocystectomy -: Appendectomy -: Cholecystectomy Psychosocial/ Personal History: Patient is - Family History Mother Medical History: Heart disease, Diabetes - Social History Smoking Status: Never smoker Alcohol use: No CD- Drugs: No Caffeine use: No Review of Systems 10-point ROS is otherwise unremarkable Physical Examination - Vital Signs Temperature: 98.6 F Blood Pressure: 162/94 Pulse: 84 Respirations: 18 Pulse Ox (%): 96 - Physical Exam General: Alert, In no apparent distress, Oriented x3 HEENT: Atraumatic, PERRLA, Mucous membr. moist/pink, EOMI, Sclerae nonicteric Neck: Supple, 2+ carotid pulse no bruit, No LAD, Without JVD or thyroid abnormality Respiratory: Clear to auscultation bilaterally, Normal air movement Cardiovascular: Regular rate/rhythm, Normal S1 S2, No murmurs Gastrointestinal: Normal bowel sounds, Soft and benign, Non-distended, No tenderness Musculoskeletal: No clubbing, No swelling, No tenderness Integumentary: No rashes Neurological: Normal gait, Normal speech, Normal strength at 5/5 x4 extr, Normal tone, Sensation intact, Cranial nerves 3-12 intact, Normal affect Lymphatics: No axilla or inguinal lymphadenopathy - Studies Laboratory Data (last 24 hrs) 10/30/19 17:05: Creatinine 2.33 H 10/30/19 17:05: WBC 11.1 H D, Hgb 12.3 D, Hct 37.2 D, Plt Count 234 10/30/19 17:05: Sodium 136, Potassium 3.7, BUN 24 H, Creatinine 2.32 H, Glucose 252 H, Phosphorus 2.5, Magnesium 2.0, Total Bilirubin 0.7, AST 15, ALT 20, Alkaline Phosphatase 80, Lipase 54 L Assessment & Plan - Problems (Diagnosis) (1) Intractable nausea and vomiting Current Visit: Yes Status: Acute (2) Diabetic nephropathy Current Visit: No Status: Acute (3) Gastroparesis Current Visit: No Status: Acute (4) Chronic kidney disease, stage 3 Current Visit: No Status: Chronic - Plan Plan: 1. IV hydration 2. Anti emetics 3. Anxiolytics 4. Reglan 5. Strict blood pressure and blood sugar control 6. Monitor electrolytes closely 7. Monitor for infection 8. GI and DVT prophylaxis Discharge Plan: Home Plan to discharge in: 24 Hours - Advance Directives Does patient have a Living Will: No Does patient have a Durable POA for Healthcare: No - Code Status/Comfort Care Code Status Assessed: Yes Code Status: Full Code Critical Care: No Time Spent Managing PTS Care (In Minutes): 45
--- NOTE | 2019-10-31 08:35 | RAD REPORT ---
EXAM DESCRIPTION: RAD - Abdomen Acute Series - 10/30/2019 9:34 pm CLINICAL HISTORY: nausea/vomiting Abdominal pain, hypertension COMPARISON: Chest Single View dated 10/23/2019; Chest Single View dated 10/18/2019 FINDINGS: Lungs are clear. Heart size and pulmonary vasculature are normal. No pleural effusion, pne umothorax or other acute cardiopulmonary process seen. Bowel gas pattern is nonspecific. No bowel obstruction, free air or other acute findings. No suspicio us calcifications. Cholecystectomy clips are present. Urinary bladder appears to be well filled. Stoo l volume is moderate on the left side. No other suspicious for significant findings. IMPRESSION: Negative acute abdomen series for acute or significant finding.
[2019-10-31] MEDS: INSULIN 70/30 100 UNITS/ML SQ SCH ×2 (09:00→21:00)
[2019-10-31] MEDS ORDERED: CEFTRIAXONE 1 GM/NS 50 ML 1 GM/50 ML BAG IV SCH (09:00)
[2019-10-31] MEDS: METOPROLOL TAR 50 MG TAB PO SCH ×2 (09:00→22:09)
[2019-10-31] MEDS: AMLODIPINE 10 MG TAB PO SCH (09:00)
[2019-10-31] MEDS: HYDRALAZINE HCL 25 MG TABLET PO SCH ×3 (09:00→22:10)
[2019-10-31] MEDS ORDERED: METOPROLOL TAR 50 MG TAB ONE (09:06)
[2019-10-31] MEDS ORDERED: PANTOPRAZOLE 40MG TABLET PO ONE (09:06)
[2019-10-31] MEDS ORDERED: METOCLOPRAMIDE 5 MG TAB ONE (09:07)
[2019-10-31] MEDS ORDERED: NA CHLORIDE 0.9% 1,000 ML ONE (09:08)
[2019-10-31] MEDS ORDERED: CEFTRIAXONE/SWI 1gm 1 GM/10 ML SYR ONE (09:08)
[2019-10-31] MEDS ORDERED: INSULIN 70/30 100 UNITS/ML SQ ONE (09:08)
[2019-10-31] MEDS ORDERED: HYDRALAZINE HCL 20 MG/ML VIAL IV PRN (11:10)
[2019-10-31] MEDS ORDERED: ERYTHROMYCIN 500 MG TAB PO SCH (12:00)
--- NOTE | 2019-10-31 14:52 | EKG ---
Test Date: 2019-10-30 Test Time: 17:32:29 Risk Control Director: THELMA MEASUREMENT RESULTS: Intervals: Rate: 85 [place]: 146 QRSD: 66 QT: 404 QTc: 480 [place]: P: 80 [place]: 146 QRS: 5 T: 103 INTERPRETIVE STATEMENTS: Normal sinus rhythm Septal infarct, age undetermined Abnormal ECG Compared to ECG 10/23/2019 18:18:58 No significant changes Electronically Signed On 10-31-19 14:50:24 CRUSHER FEEDER by Marquez Walter
[2019-11-01] MEDS: ONDANSETRON 4 MG/2 ML VIAL IV PRN ×4 (02:29→21:15)
[2019-11-01] MEDS: NA CHLORIDE 0.9% 1,000 ML IV SCH ×2 (03:09→14:00)
[2019-11-01] MEDS: MORPHINE 4 MG/ML SYR IV PRN (03:21)
[2019-11-01] MEDS: PANTOPRAZOLE 40MG TABLET PO SCH ×2 (05:24→18:09)
[2019-11-01 05:49] LABS: Absolute Lymphocytes (CBC) 0.9 K/uL (0.7-4.9); Basophils % 0.6 % (0-1.3); Hematocrit 27.2 % (36.0-45.0); Lymphocytes % 10.9 % (15.3-44.8); MPV 11.2 fL (7.6-11.3); RBC Red Blood Cell Count 3.04 M/uL (3.86-4.86)
[2019-11-01 06:07] LABS: Albumin 2.5 g/dL (3.4-5.0); Bilirubin Total 0.3 mg/dL (0.2-1.0); Potassium 3.4 mmol/L (3.5-5.1); Protein, Total 5.1 g/dL (6.4-8.2)
[2019-11-01] MEDS: INSULIN 70/30 100 UNITS/ML SQ SCH ×2 (09:00→20:43)
[2019-11-01] MEDS: HYDRALAZINE HCL 25 MG TABLET PO SCH ×3 (09:27→20:43)
[2019-11-01] MEDS: CEFTRIAXONE/SWI 1gm 1 GM/10 ML SYR IVP SCH (09:27)
[2019-11-01] MEDS: AMLODIPINE 10 MG TAB PO SCH (09:28)
[2019-11-01] MEDS: METOPROLOL TAR 50 MG TAB PO SCH ×2 (09:28→20:42)
[2019-11-01] MEDS: METOCLOPRAMIDE 5 MG TAB PO SCH ×4 (09:28→20:42)
[2019-11-01] MEDS ORDERED: LORazepam 2 MG/ML VIAL ONE (15:36)
[2019-11-01] MEDS ORDERED: LORazepam 2 MG/ML VIAL IV ONE (16:00)
--- NOTE | 2019-11-01 17:02 | PN ---
Subjective: Currently patient lying in bed. She looks in mild distress. She continued to have naus ea, vomiting. She is not able to tolerate any fluid. There is no chest pain or abdominal pain. No fever or chills. Review of Systems: Otherwise as below. Physical Examination: Vital Signs: Blood pressure is 179/90, respiratory rate 18, pulse 94, temperature 97.4, saturating 9 5% on room air. General: She is alert and oriented x3. Does look in moderate distress. HEENT: Atraumatic, normocephalic. PERRLA. Oral mucosa is moist. Neck: Supple. No JVD. No bruits. Chest: Clear to auscultation. Good air entry. Heart: Regular rate and rhythm. Tachy. No gallop or murmur. Abdomen: Soft, nontender. No masses. No hepatosplenomegaly. Positive bowel sounds. Extremities: No clubbing, cyanosis, or edema. No calf tenderness. Neurologic: Grossly intact. Laboratory Data: Today, showed CBC normal except for hemoglobin 8.9, platelets 154, white blood cell s of 8.5. Chemistry was normal except for potassium 3.4, BUN of 24, creatinine of 2.73, glucose 173. UA was positive on the day of admission, but culture showed mixed myron. Assessment And Plan: 1.Intractable nausea, vomiting secondary to gastroparesis secondary to diabetes. Patient on Reglan 10 mg every 6 hours, Zofran 8 mg every 8 hours. She is still having nausea. GI consult . There is no GI Service on the weekend. I order erythromycin orally every 6 hours, but the pharmacy does not carry that so is not available. I advised patient to consider going to a referral center [facility] or hospital next time as she had multiple admission at our facility. We doubt ability to control her nausea. 2.Diabetic nephropathy. Continue to have renal insufficiency, stable at baseline. Creatinine aroun d 2.73. Continue IV fluids at this point. 3.Uncontrolled diabetes. Glucose in the range of 91 to 298. Patient on insulin 70/30, 10 units twi ce a day. I will increase it to 12 units twice a day. 4.Urinary tract infection showed mixed myron. Patient apparently on ceftriaxone. 5.Anemia, most likely secondary to renal insufficiency. 6.Hypokalemia. We will replace potassium. 7.Deep vein thrombosis prophylaxis. Patient is young and able to ambulate, so we will hold off. TORI/NATANAEL Voice ID: [id number] Report ID: [id number]
[2019-11-01] MEDS ORDERED: POTASSIUM CL SA 10 MEQ TAB PO ONE (18:00)
[2019-11-02] MEDS: NA CHLORIDE 0.9% 1,000 ML IV SCH ×4 (00:55→20:00)
[2019-11-02] MEDS: ONDANSETRON 4 MG/2 ML VIAL IV PRN ×2 (06:18→17:33)
[2019-11-02] MEDS: MORPHINE 4 MG/ML SYR IV PRN ×3 (06:27→17:34)
[2019-11-02] MEDS: METOCLOPRAMIDE 5 MG TAB PO SCH ×4 (08:21→21:47)
[2019-11-02] MEDS: CEFTRIAXONE/SWI 1gm 1 GM/10 ML SYR IVP SCH (08:21)
[2019-11-02] MEDS: PANTOPRAZOLE 40MG TABLET PO SCH ×2 (08:21→16:43)
[2019-11-02] MEDS: HYDRALAZINE HCL 25 MG TABLET PO SCH ×3 (08:22→21:47)
[2019-11-02] MEDS: AMLODIPINE 10 MG TAB PO SCH (08:22)
[2019-11-02] MEDS: METOPROLOL TAR 50 MG TAB PO SCH ×2 (08:22→21:47)
[2019-11-02] MEDS: INSULIN 70/30 100 UNITS/ML SQ SCH ×2 (08:23→21:47)
--- NOTE | 2019-11-02 12:37 | P.PN ---
Subjective Date of Service: 11/02/19 Primary Care Provider: PCP Chief Complaint: Intractable nausea and vomiting Subjective: No new changes Patient tolerating some p.o. fluids. No food at this time. Patient was still having bouts of nausea and vomiting this morning with mild epigastric pain. No other new findings on physical exam. Review of Systems General: Unremarkable Eyes: Unremarkable ENT: Unremarkable Respiratory: Unremarkable Cardiovascular: Unremarkable Gastrointestinal: Nausea, Vomiting, Abdominal Pain Musculoskeletal: Unremarkable Integumentary: Unremarkable Neurological: Unremarkable Lymphatics: Unremarkable Physical Examination - Vital Signs Temperature: 98.2 F Blood Pressure: 130/69 Pulse: 80 Respirations: 16 Pulse Ox (%): 96 - Physical Exam General: Alert, In no apparent distress, Oriented x3 HEENT: PERRLA, Mucous membr. moist/pink, EOMI Neck: Supple, 2+ carotid pulse no bruit, JVD not distended, No Thyromegaly, No LAD Respiratory: Clear to auscultation bilaterally, Normal air movement Cardiovascular: No edema, Normal pulses, Regular rate/rhythm, No gallops, No rubs, No murmurs Capillary refill: <2 Seconds Gastrointestinal: Normal bowel sounds, Soft and benign, Non-distended, Tenderness (epigastric region) Musculoskeletal: No clubbing, No swelling, No contractures, No erythema, No tenderness Integumentary: No rashes, No breakdown, No significant lesion, No tenderness/ swelling, No erythema, No warmth, No cyanosis Neurological: Normal speech, Normal strength at 5/5 x4 extr, Normal tone, Sensation intact, Cranial nerves 3-12 intact, Normal affect - Studies Microbiology Data (last 24 hrs): 10/30/19 17:39 Clean Catch Urine Needles Count - Final >100,000 CFU/ML. 10/30/19 17:39 Clean Catch Urine - Final MIXED MYRON. Medications List Reviewed: Yes Assessment And Plan - Current Problems (Diagnosis) (1) Dehydration Current Visit: Yes Status: Acute (2) Hypokalemia Current Visit: Yes Status: Acute (3) Intractable nausea and vomiting Current Visit: Yes Status: Acute (4) Acute worsening of stage 4 chronic kidney disease Current Visit: No Status: Acute (5) Gastroparesis Current Visit: No Status: Chronic (6) Hypertension Current Visit: No Status: Acute Qualifiers: Hypertension type: essential hypertension Qualified Code(s): I10 - Essential (primary) hypertension (7) Insulin dependent diabetes mellitus Current Visit: No Status: Acute - Plan Patient has chronic renal insufficiency. Mild hypokalemia today. Potassium replacement protocol was been ordered. Mixed myron in urine. Will DC antibiotics as there is no specific bacterial sign at this time. Awaiting consult from GI for diabetic related gastroparesis. Anemia stable at this time probably secondary to chronic renal insufficiency. Will continue to monitor patient closely. Discharge Plan: Home Plan to discharge in: 48 Hours - Code Status/Comfort Care Code Status Assessed: Yes Critical Care: No Time Spent Managing PTS Care (In Minutes): 45
[2019-11-03] MEDS: ONDANSETRON 4 MG/2 ML VIAL IV PRN ×2 (00:46→09:54)
[2019-11-03] MEDS: NA CHLORIDE 0.9% 1,000 ML IV SCH ×5 (03:04→21:54)
[2019-11-03] MEDS: MORPHINE 4 MG/ML SYR IV PRN ×3 (04:53→22:16)
[2019-11-03] MEDS: CEFTRIAXONE/SWI 1gm 1 GM/10 ML SYR IVP SCH (08:40)
[2019-11-03] MEDS: METOPROLOL TAR 50 MG TAB PO SCH ×2 (08:43→21:47)
[2019-11-03] MEDS: PANTOPRAZOLE 40MG TABLET PO SCH ×2 (08:43→16:15)
[2019-11-03] MEDS: METOCLOPRAMIDE 5 MG TAB PO SCH ×4 (08:43→21:47)
[2019-11-03] MEDS: AMLODIPINE 10 MG TAB PO SCH (08:43)
[2019-11-03] MEDS: HYDRALAZINE HCL 25 MG TABLET PO SCH ×3 (08:44→21:47)
[2019-11-03] MEDS: INSULIN 70/30 100 UNITS/ML SQ SCH ×2 (08:45→21:47)
[2019-11-03] MEDS: ERYTHROMYCIN 500 MG TAB PO SCH ×4 (09:00→21:00)
--- NOTE | 2019-11-03 17:40 | PN ---
Date of Progress Note: 11/03/2019 Subjective: Patient seen and examined, chart reviewed and case discussed with RN and Dr. Gonzales. Patient is still having some abdominal discomfort. Scheduled for EGD today. Medications: Reviewed. Physical Examination: Vital Signs: Temperature 97.9, heart rate 85, blood pressure 173/80, respirations 17, O2 95% on room air. General: Awake, alert, oriented x3, in some mild distress. CV: S1, S2. Regular rate and rhythm. Peripheral pulses present. Respiratory: Moving air well bilaterally. No wheezing or stridor. No use of accessory muscles. Gastrointestinal: Abdomen is soft. Tenderness to palpation in the epigastric region. No rebound or guarding. Positive bowel sounds. Extremities: No clubbing, cyanosis, or edema. Neuro: Nonfocal. Laboratory Data: Blood glucose levels ranging between 69 to 176. Urine culture growing out mixed myron. Assessment: 39-year-old female with: 1. Intractable nausea and vomiting, may be secondary to diabetic gastroparesis , not improved with Reglan. Appreciate Dr. Gonzales's input. Going for esophagogastroduodenoscopy today. Erythromycin has been ordered. Spoke with pharmacist, Alice, who stated that it is being drop shipped as it is not on formulary. 2. Acute dehydration. Continue with IV fluids. 3. Hypokalemia, replace and monitor. 4. Beznn-wx-azruogd kidney disease stage 4. We will continue to monitor creatinine level. No labs done today. We will order CMP for a.m. 5. Gastroparesis. 6. Essential hypertension, not well controlled, likely secondary to pain. We will adjust medications at p.r.n. IV hydralazine and if blood pressure continues to stay above 180. 7. Diabetes mellitus type 2, insulin requiring with diabetic gastroparesis. Continue with sliding scale insulin. Monitor blood glucose levels. 8. Chronic diastolic heart failure, stable. Plan: Follow up on EGD study results. Start on erythromycin once available. Likely discontinued in the next 48 to 72 hours depending on clinical improvement. /NATANAEL Voice ID: [id number] Report ID: [id number]
[2019-11-04] MEDS: ONDANSETRON 4 MG/2 ML VIAL IV PRN ×3 (00:05→20:05)
[2019-11-04] MEDS: NA CHLORIDE 0.9% 1,000 ML IV SCH ×4 (01:10→22:00)
[2019-11-04] MEDS: MORPHINE 4 MG/ML SYR IV PRN ×5 (02:54→20:29)
[2019-11-04 05:31] LABS: Absolute Lymphocytes (CBC) 0.9 K/uL (0.7-4.9); Basophils % 0.8 % (0-1.3); Hematocrit 28.7 % (36.0-45.0); Lymphocytes % 16.3 % (15.3-44.8); MPV 11.7 fL (7.6-11.3); RBC Red Blood Cell Count 3.18 M/uL (3.86-4.86)
[2019-11-04 05:45] LABS: Albumin 2.7 g/dL (3.4-5.0); Bilirubin Total 0.2 mg/dL (0.2-1.0); Potassium 3.9 mmol/L (3.5-5.1); Protein, Total 5.3 g/dL (6.4-8.2)
[2019-11-04] MEDS: PANTOPRAZOLE 40MG TABLET PO SCH ×2 (07:30→15:49)
[2019-11-04] MEDS: METOCLOPRAMIDE 5 MG TAB PO SCH ×4 (07:30→20:28)
[2019-11-04] MEDS: CEFTRIAXONE/SWI 1gm 1 GM/10 ML SYR IVP SCH (08:36)
[2019-11-04] MEDS: AMLODIPINE 10 MG TAB PO SCH (09:00)
[2019-11-04] MEDS: ERYTHROMYCIN 500 MG TAB PO SCH (09:00)
[2019-11-04] MEDS: HYDRALAZINE HCL 25 MG TABLET PO SCH ×3 (09:00→20:28)
[2019-11-04] MEDS: METOPROLOL TAR 50 MG TAB PO SCH ×2 (09:00→20:27)
[2019-11-04] MEDS ORDERED: KCL 20 MEQ/100 mL IVPB 20 MEQ/100 ML BAG IV SCH (09:00)
[2019-11-04] MEDS: INSULIN 70/30 100 UNITS/ML SQ SCH ×2 (09:00→20:36)
[2019-11-04] MEDS: ERYTHROMYCIN 250 MG PO SCH ×3 (11:30→20:28)
[2019-11-04] MEDS ORDERED: propofoL 200 MG/20 ML VIAL IV ONE (11:46)
[2019-11-04] MEDS ORDERED: ONDANSETRON 4 MG/2 ML VIAL IV ONE (13:27)
[2019-11-04] MEDS ORDERED: ONDANSETRON 4 MG/2 ML VIAL ONE (13:27)
--- NOTE | 2019-11-04 14:06 | ENDO RPT ---
[address], [address] EGD PROCEDURE REPORT EXAM DATE: 11/04/2019 PATIENT NAME: Mercedes Marin MR#: [id number] BIRTHDATE: 1980 ATTENDING: Guille Gonzales Dr STATUS: inpatient INSURANCE PROCESSOR: Ramona Lucas RN and Teresa Hayes INDICATIONS: The patient is a 39 yr old Female here for an EGD due to mid epigastric abdominal pain and nausea and vomiting PROCEDURE PERFORMED: EGD with biopsy MEDICATIONS: Per Anesthesia. TOPICAL ANESTHETIC: none CONSENT: The patient understands the risks and benefits of the procedure and understands that these risks include, but are not limited to: sedation, allergic reaction, infection, perforation and/or bleeding. Alternative means of evaluation and treatment include, among others: physical exam, x-rays, and/or surgical intervention. The patient elects to proceed with this endoscopic procedure. DESCRIPTION OF PROCEDURE: During intra-op preparation period all mechanical medical equipment was checked for proper function. Hand hygiene and appropriate measures for infection prevention was taken. Procedure, possible complications, and alternatives including but not limited to the possibility of bleeding, perforation, tear, infection, sepsis, need for surgery, need for blood transfusion, and anesthesia related complications were explained to the patient. After the risks, benefits and alternatives of the procedure were thoroughly explained, Informed consent was verified, confirmed and timeout was successfully executed by the treatment team. The patient was placed in the left lateral position. The patient was anesthetized with topical anesthesia. Through the anesthetized oropharyngeal area, the scope was passed without any difficulty. The EG-[id number] ([id number]) endoscope was introduced through the mouth and advanced to the third portion of the duodenum. Retroflexed views revealed no abnormalities. The gastroscope was then slowly withdrawn and removed. Mild gastritis was found in the body and the antrum of the stomach. Multiple biopsies were obtained and sent to pathology. Multiple erosions were found in the antrum. Duodenitis was found in the descending duodenum. Multiple ulcers were found in the descending duodenum. Inflammation was found in the descending duodenum. Multiple biopsies were obtained and sent to pathology. ADVERSE EVENTS: There were no complications. IMPRESSIONS: 1. Mild gastritis in the body and the antrum of the stomach, s/p biopsies 2. Multiple (3) erosions in the pre-pyloric antrum 3. Duodenitis in the descending duodenum 4. Multiple (4) shallow 2-3 mm clean-based white ulcers in the descending duodenum 5. Flattening of the small bowel folds in the descending duodenum, s/p biopsies RECOMMENDATIONS: 1. await biopsy results 2. acid suppression therapy REPEAT EXAM: Guille Gonzales Dr eSigned: Guille Gonzales Dr 11/04/2019 2:06 PM cc: CPT CODES: ICD9 CODES: PATIENT NAME: Mercedes Marin MR#: [id number]
--- NOTE | 2019-11-04 16:59 | PN ---
Date of Progress Note: 11/04/2019 Subjective: Patient is seen and examined. Chart reviewed and case discussed with RN. Patient is cu rrently n.p.o. for EGD today. Medication List: Reviewed. Physical Examination: Vital Signs: Temperature 98.1, heart rate 77, blood pressure 159/77, respirations 15, O2 of 91% on r oom air. GENERAL: Awake, alert, oriented x3, in some mild distress, ill-appearing female. CV: S1, S2. Regular rate and rhythm. Peripheral pulses present. Respiratory: Moving air well bilaterally. No wheezing or stridor. No use of accessory muscles. Gastrointestinal: Abdomen is soft. Mild tenderness to palpation. No guarding. No rebound tenderne ss. Positive bowel sounds. Extremities: No clubbing, cyanosis, or edema. No calf tenderness. Neuro: Nonfocal. Laboratory Data: Sodium 141, potassium 3.9, chloride 113, CO2 of 22, BUN 17, creatinine 2.58, calciu m 7.9, albumin 2.7. WBC 5.8, H and H 9.3 and 28.7, platelets 154, neutrophils 69%. Urine culture gr owing out mixed myron. Assessment And Plan: 39-year-old female with: 1.Intractable nausea and vomiting, likely secondary to diabetic gastroparesis. Trial of erythromyci n medications was not formulary, has been received today. Currently n.p.o. for EGD. We will follow up with EGD findings. 2.Acute dehydration, improved with IV fluids. 3.Hypokalemia. We will replace and monitor. 4.Acute on chronic kidney disease, stage 4. We will continue to monitor creatinine. Avoid NSAIDs, slightly better than previous. Baseline creatinine is around 2. 5.Gastroparesis secondary to uncontrolled diabetes. 6.Essential hypertension, not well controlled. Continue with hydralazine p.r.n. 7.Diabetes mellitus type 2, insulin requiring with diabetic gastroparesis. Continue sliding scale i nsulin. Monitor blood glucose levels, adjust as necessary. 8.Disposition. Discharge in the next 24 to 48 hours depending on clinical improvement. Pending EGD results and trial of erythromycin. SA/MODL Voice ID: [id number] Report ID: [id number]
[2019-11-04] MEDS: ENSURE CLEAR 200 ML CAN PO SCH (20:28)
[2019-11-04 23:37] VITALS: O2SAT 91
[2019-11-05] MEDS: MORPHINE 4 MG/ML SYR IV PRN ×3 (01:10→11:02)
[2019-11-05] MEDS: ONDANSETRON 4 MG/2 ML VIAL IV PRN ×2 (04:03→12:17)
[2019-11-05] MEDS: NA CHLORIDE 0.9% 1,000 ML IV SCH ×2 (05:11→14:05)
[2019-11-05 06:03] LABS: Absolute Lymphocytes (CBC) 0.9 K/uL (0.7-4.9); Basophils % 0.7 % (0-1.3); Hematocrit 29.4 % (36.0-45.0); Lymphocytes % 15.3 % (15.3-44.8); RBC Red Blood Cell Count 3.24 M/uL (3.86-4.86)
[2019-11-05 06:27] LABS: Albumin 2.8 g/dL (3.4-5.0); Bilirubin Total 0.2 mg/dL (0.2-1.0); Potassium 4.1 mmol/L (3.5-5.1); Protein, Total 5.6 g/dL (6.4-8.2)
[2019-11-05] MEDS: ERYTHROMYCIN 250 MG PO SCH ×3 (07:30→15:49)
[2019-11-05] MEDS: INSULIN 70/30 100 UNITS/ML SQ SCH (09:19)
[2019-11-05] MEDS: METOPROLOL TAR 50 MG TAB PO SCH (09:20)
[2019-11-05] MEDS: AMLODIPINE 10 MG TAB PO SCH (09:20)
[2019-11-05] MEDS: METOCLOPRAMIDE 5 MG TAB PO SCH ×3 (09:21→15:48)
[2019-11-05] MEDS: HYDRALAZINE HCL 25 MG TABLET PO SCH ×2 (09:21→14:04)
[2019-11-05] MEDS: PANTOPRAZOLE 40MG TABLET PO SCH ×2 (09:21→15:49)
[2019-11-05] MEDS: ENSURE CLEAR 200 ML CAN PO SCH (09:23)
[2019-11-05] MEDS: CEFTRIAXONE/SWI 1gm 1 GM/10 ML SYR IVP SCH (09:24)
--- NOTE | 2019-11-05 12:59 | P.PN ---
Subjective Date of Service: 11/05/19 Primary Care Provider: PCP Chief Complaint: Intractable nausea and vomiting Subjective: Improving (Feels better with addition of Erythromycin & Protonix to Reglan. Now able to tolerate CL diet. EGD yesterday revealed gastritis with erosions, duodenitis with 4 shallow ulcers in descending duodenum with Protonix started.) Review of Systems 10-point ROS is otherwise unremarkable General: Weakness (Improved), Malaise (Improved) Gastrointestinal: Nausea (Improved), Vomiting (Improved), Abdominal Pain ( Improved) Physical Examination - Vital Signs Temperature: 98.3 F Blood Pressure: 168/83 Pulse: 75 Respirations: 18 Pulse Ox (%): 95 - Physical Exam General: Alert, In no apparent distress, Cooperative HEENT: Atraumatic, Normocephalic, PERRLA, EOMI Neck: Supple Respiratory: Normal air movement Cardiovascular: Normal pulses, Regular rate/rhythm Gastrointestinal: Normal bowel sounds, No rebound, No guarding, Tenderness (mild ) Neurological: Normal speech, Normal strength at 5/5 x4 extr - Studies Medications List Reviewed: Yes Assessment And Plan - Current Problems (Diagnosis) (1) Diabetic gastroparesis Current Visit: Yes Status: Acute Comment: Improved (2) Epigastric abdominal pain Current Visit: Yes Status: Acute Comment: Improved (3) Dehydration Current Visit: Yes Status: Acute Comment: Improved (4) Hypokalemia Current Visit: Yes Status: Acute (5) Nausea & vomiting Current Visit: No Status: Acute Comment: Improved Qualifiers: Vomiting Intractability: unspecified (6) Gastritis Current Visit: Yes Status: Acute (7) Gastric erosions Current Visit: Yes Status: Acute (8) Duodenitis Current Visit: Yes Status: Acute (9) Ulcerated, duodenum Current Visit: Yes Status: Acute - Plan REC: 1) continue Reglan, Erythromycin and Protonix 2) CL to FL to 1800 DM diet
[2019-11-05 18:11] VITALS: BP 112/60; TEMP 98
--- NOTE | 2019-11-06 02:25 | DS ---
Date of Discharge: 11/05/2019 Consultants: Dr. Gonzales with GI. Procedures: Endoscopy on 11/04/2019, found to have gastritis, duodenitis, and duodenal ulcers. Admitting Diagnoses: 1.Intractable nausea and vomiting. 2.Diabetic nephropathy. 3.Gastroparesis. 4.Chronic kidney disease stage 3. Discharge Diagnoses: 1.Intractable nausea and vomiting secondary to diabetic gastroparesis, improved with Reglan and eryt hromycin. 2.Acute gastritis and duodenitis. 3.Duodenal ulcers, H pylori negative. 4.Hypokalemia, replaced. 5.Acute dehydration, improved. 6.Chronic kidney disease stage 4. 7.Gastroparesis. 8.Essential hypertension, not well controlled. 9.Diabetes mellitus type 2 insulin requiring with diabetic gastroparesis. Hospital Course: Patient is a 39-year-old female with past medical history of poorly-controlled diab etes, hypertension, chronic kidney disease stage 4 with diabetic nephropathy, GERD, as well as gastro paresis. Patient comes in with intractable nausea and vomiting. She was dehydrated. She was seen b y GI, Dr. Gonzales, for her intractable nausea and vomiting. Patient was on Reglan, did not have much improvement, was started on erythromycin, which had to be specially ordered as it is not on formulary . Patient did have an abnormal UA, but urine culture grew out mixed myron. Patient did have endosco py done as mentioned above, found to have gastritis, duodenitis, and ulcers. Patient will be continu ed on Protonix. The patient's biopsy was negative for H pylori. Patient was then cleared for discha rge as she was able to tolerate her diet. She was recommended to follow her blood glucose levels jose roberto sely to have better control of her diabetes and hypertension. Patient was then cleared for discharge from a GI standpoint. Followup: Follow up with primary care physician in 2-3 days. Follow up with GI, Dr. Gonzales, in 2 we eks. Return to ER for worsening condition. Diet: Crosby. Activity: As tolerated. Medications: As per medication reconciliation list. Physical Examination: General: Awake, alert, and oriented x3. CV: S1, S2. No murmurs. Respiratory: Moving air well bilaterally. Abdomen: Abdomen is soft, nontender, nondistended. Positive bowel sounds. Extremities: No clubbing, cyanosis, edema. Neurologic: Nonfocal. Total time spent discharging the patient was 37 minutes. /NATANAEL Voice ID: [id number] Report ID: [id number]
== END 2019-11-05 18:29 | disposition home or self-care (01) | DRG 74 ==
LOC: ER 16:16 → ERHOLD 23:32 → 2ND 10-31 10:23 → OBSVTOIN 11-01 14:05
PROVIDERS: ADMIT Internal Medicine; ATTEND Family Medicine
PROC: 0DB88ZX Excision of Small Intestine, Via Natural or Artificial Opening Endoscopic, Diagnostic (ICD-10-PCS; 2019-11-04)
PROC: 0DB68ZX Excision of Stomach, Via Natural or Artificial Opening Endoscopic, Diagnostic (ICD-10-PCS; principal; 2019-11-04 09:00)
DX: E11.43 Type 2 diabetes mellitus with diabetic autonomic (poly)neuropathy (principal); I50.32 Chronic diastolic (congestive) heart failure; I13.0 Hypertensive heart and chronic kidney disease with heart failure and stage 1 through stage 4 chronic kidney disease, or unspecified chronic kidney disease; N39.0 Urinary tract infection, site not specified; N18.4 Chronic kidney disease, stage 4 (severe); N17.9 Acute kidney failure, unspecified; K25.3 Acute gastric ulcer without hemorrhage or perforation; K31.84 Gastroparesis; E11.21 Type 2 diabetes mellitus with diabetic nephropathy; E11.22 Type 2 diabetes mellitus with diabetic chronic kidney disease; E11.65 Type 2 diabetes mellitus with hyperglycemia; K21.9 Gastro-esophageal reflux disease without esophagitis; D63.8 Anemia in other chronic diseases classified elsewhere; E87.6 Hypokalemia; K29.80 Duodenitis without bleeding; K26.9 Duodenal ulcer, unspecified as acute or chronic, without hemorrhage or perforation; Z79.4 Long term (current) use of insulin
CPT/HCPCS: 36415; 74022; 80048; 80053; 80076; 81003; 81015; 81025; 82947; 83690; 83735; 84100; 84132; 85025; 87086; 87088; 88305; 88312; 93005; 96361; 96365; 96375; 99285; C9113; G0378; J0360; J0696; J1815; J2405; J2550; J2704; J7030

== ENCOUNTER 2019-11-05 23:24 | Emergency (ER) | payer SELFPAY ==
--- OUTSIDE RECORDS SUMMARY | 2019-11-05 23:26 | XMS REPORT ---
:1980 [facility] Address [address] [place] [address] [address] [place] [address] Care Team Providers Name Role Phone Unavailable Unavailable Unavailable Problems This patient has no known problems. Allergies, Adverse Reactions, Alerts This patient has no known allergies or adverse reactions. Medications This patient has no known medications.
[2019-11-06] MEDS ORDERED: MORPHINE 2 MG/ML SYR ONE (00:33)
[2019-11-06] MEDS ORDERED: PANTOPRAZOLE 40 MG INJ ONE (00:34)
[2019-11-06] MEDS ORDERED: NA CHLORIDE 0.9% 1,000 ML ONE (00:34)
[2019-11-06] MEDS ORDERED: ONDANSETRON 4 MG/2 ML VIAL ONE ×2 (00:34→06:03)
[2019-11-06 00:54] LABS: Absolute Lymphocytes (CBC) 1.1 K/uL (0.7-4.9); Basophils % 0.7 % (0-1.3); Hematocrit 33.4 % (36.0-45.0); Lymphocytes % 14.1 % (15.3-44.8); MPV 11.8 fL (7.6-11.3); RBC Red Blood Cell Count 3.75 M/uL (3.86-4.86)
[2019-11-06] MEDS ORDERED: LIDOCAINE VISCOUS 2% SOLN 15 ML UDC ONE (01:00)
[2019-11-06] MEDS ORDERED: MAGNE/ALUM HYDROXD 30 ML UCUP ONE (01:00)
[2019-11-06 01:07] LABS: ALT/SGPT 45 U/L (12-78); AST/SGOT 18 U/L (15-37); Albumin 3.3 g/dL (3.4-5.0); Alkaline Phosphatase 124 U/L (45-117); BUN Blood Urea Nitrogen 15 mg/dL (7-18); Bicarbonate 20 mmol/L (21-32); Bilirubin Direct < 0.1 mg/dL (0-0.2); Bilirubin Total 0.2 mg/dL (0.2-1.0); Glucose Level 82 mg/dL (74-106); Lipase 50 U/L (73-393); Protein, Total 6.6 g/dL (6.4-8.2); Sodium Level 140 mmol/L (136-145)
[2019-11-06] MEDS ORDERED: PROMETHAZINE INJ 25 MG/ML AMP ONE (02:46)
--- NOTE | 2019-11-06 05:43 | EDPHYS ---
Physician Documentation [facility] Name: Mercedes Marin Age: 39 yrs Sex: Female : 1980 Arrival Date: 11/05/2019 Time: 23:26 Bed 2 Private MD: ED Physician Luis Eduardo Sun HPI: 11/06 00:16 This 39 yrs old Female presents to ER via Wheelchair with complaints of pkl Abdominal Pain, Back Pain. 00:16 The patient presents with abdominal pain in the epigastric area. Onset: The pkl symptoms/episode began/occurred just prior to arrival. The symptoms radiate to back. Associated signs and symptoms: Pertinent positives: nausea. Patient discharged earlier today after admitted to the hospital for 5 days. Had EGD done, showed gastritis with erosions, duodenitis with 4 shallow ulcers in the descending duodenum. Has not filled prescriptions yet.. 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 - Social history:: Smoking status: Patient/guardian denies using tobacco. - Ebola Screening: : No symptoms or risks identified at this time. ROS: 11/06 00:16 Eyes: Negative for injury, pain, redness, and discharge, ENT: Negative for injury, pkl pain, and discharge, Neck: Negative for injury, pain, and swelling, Cardiovascular: Negative for chest pain, palpitations, and edema, Respiratory: Negative for shortness of breath, cough, wheezing, and pleuritic chest pain. Abdomen/GI: Positive for abdominal pain, nausea, of the epigastric area. Back: Positive for pain at rest, of the mid back. : Negative for urinary symptoms. MS/extremity: Negative for acute changes. Skin: Negative for rash. Neuro: Negative for altered mental status. Exam: 00:16 Head/Face: Normocephalic, atraumatic. Eyes: Pupils equal round and reactive to light, pkl extra-ocular motions intact. Lids and lashes normal. Conjunctiva and sclera are non-icteric and not injected. Cornea within normal limits. Periorbital areas with no swelling, redness, or edema. ENT: Nares patent. No nasal discharge, no septal abnormalities noted. Tympanic membranes are normal and external auditory canals are clear. Oropharynx with no redness, swelling, or masses, exudates, or evidence of obstruction, uvula midline. Mucous membranes moist. Neck: Trachea midline, no thyromegaly or masses palpated, and no cervical lymphadenopathy. Supple, full range of motion without nuchal rigidity, or vertebral point tenderness. No Meningismus. Chest/axilla: Normal chest wall appearance and motion. Nontender with no deformity. No lesions are appreciated. Cardiovascular: Regular rate and rhythm with a normal S1 and S2. No gallops, murmurs, or rubs. Normal PMI, no JVD. No pulse deficits. Respiratory: Lungs have equal breath sounds bilaterally, clear to auscultation and percussion. No rales, rhonchi or wheezes noted. No increased work of breathing, no retractions or nasal flaring. 00:16 Abdomen/GI: Bowel sounds: normal, Palpation: soft, mild abdominal tenderness, in the epigastric area. 00:16 Back: pain, that is mild, of the mid back. 00:16 : Exam negative for acute changes. 00:16 Musculoskeletal/extremity: Exam is negative for acute changes. 00:16 Skin: Exam negative for rash. 00:16 Neuro: Orientation: is normal, Mentation: is normal, Cranial nerves: grossly normal, Motor: is normal. Vital Signs: 11/05 23:49 BP 138 / 93; Pulse 82; Resp 14 S; Temp 98.3(O); Pulse Ox 95% on R/A; Weight 65.77 kg bb (R); Height 5 ft. 2 in. (157.48 cm) (R); Pain 08/06; 11/06 00:46 BP 143 / 76; Pulse 81; Resp 16; Pulse Ox 93% on R/A; aa1 02:00 BP 131 / 75; Pulse 77; Resp 18; Pulse Ox 94% on R/A; Pain 05/06; aa1 03:36 BP 131 / 71; Pulse 80; Resp 16; Pulse Ox 96% on R/A; aa1 04:30 BP 141 / 87; Pulse 88; Resp 16; Pulse Ox 95% on R/A; aa1 06:13 BP 154 / 84; Pulse 88; Resp 16; Temp 98.1; Pulse Ox 95% on R/A; Pain 6/10; aa1 11/05 23:49 Body Mass Index 26.52 (65.77 kg, 157.48 cm) bb MDM: 00:04 Patient medically screened. pkl 05:36 Data reviewed: vital signs, nurses notes, lab test result(s). ED course: Patient torie sleeping in ER. Not in any distress. Advised to fill prescriptions today and follow up with her doctors as instructed on discharge from the hospital when she was admitted . 11/06 00:14 Order name: Basic Metabolic Panel; Complete Time: pkl 11/06 00:14 Order name: CBC with Diff; Complete Time: pkl 11/06 00:14 Order name: Creatinine for Radiology; Complete Time: pkl 11/06 00:14 Order name: Hepatic Function; Complete Time: pkl 11/06 00:14 Order name: Lipase; Complete Time: pkl 11/06 00:14 Order name: IV Saline Lock; Complete Time: pkl 11/06 00:14 Order name: Labs collected and sent; Complete Time: 00 pkl Administered Medications: 00:35 Drug: NS 0.9% 1000 ml Route: IV; Rate: 125 ml/hr; Site: right forearm; aa1 06:13 Follow up: IV Status: Completed infusion aa1 00:35 Drug: ProTONIX 40 mg Route: IVP; Site: right forearm; aa1 01:35 Follow up: Response: No adverse reaction; Pain is decreased aa1 00:37 Drug: Zofran 4 mg Route: IVP; Site: right forearm; aa1 01:37 Follow up: Response: No adverse reaction; Nausea is decreased aa1 00:39 Drug: morphine 4 mg Route: IVP; Site: right forearm; aa1 01:39 Follow up: Response: No adverse reaction; Pain is decreased aa1 01:02 Drug: GI Cocktail without - (Maalox Suspension 30 ml, Lidocaine Liquid 2 % 15 aa1 ml) Route: PO; 02:00 Follow up: Response: No adverse reaction; Pain is decreased aa1 02:47 Drug: Phenergan 12.5 mg Route: IVP; Site: right forearm; aa1 03:45 Follow up: Response: No adverse reaction; Nausea is decreased aa1 06:05 Drug: Zofran 4 mg Route: IVP; Site: right forearm; aa1 06:13 Follow up: Response: No adverse reaction; Medication administered at discharge. aa1 Disposition: 11/06/19 05:41 Discharged to Home. Impression: Epigastric pain. Duodenitis. Chronic renal disease. Gastroparesis. - Condition is Stable. - Prescriptions for Zofran 4 mg Oral Tablet - take 1 tablet by ORAL route every 12 hours As needed; 10 tablet. - Medication Reconciliation Form, Thank You Letter, Antibiotic Education, Prescription Opioid Use form. - Follow up: Private Physician; When: 2 - 3 days; Reason: Re-evaluation by your physician. - Problem is new. - Symptoms have improved. Signatures: Dispatcher [employer] EDFarheen Dee RN RN aa1 Luis Eduardo Sun MD MD pkl Elvira Batista RN RN bb Corrections: (The following items were deleted from the chart) 06:08 05:41 11/06/2019 05:41 Discharged to Home. Impression: Epigastric pain. Duodenitis. pkl Chronic renal disease. Condition is Stable. Forms are Medication Reconciliation Form, Thank You Letter, Antibiotic Education, Prescription Opioid Use. Follow up: Private Physician; When: 2 - 3 days; Reason: Re-evaluation by your physician. Problem is new. Symptoms have improved. pkl 06:15 06:08 11/06/2019 05:41 Discharged to Home. Impression: Epigastric pain. Duodenitis. aa1 Chronic renal disease. Gastroparesis. Condition is Stable. Prescriptions for Zofran 4 mg Oral Tablet - take 1 tablet by ORAL route every 12 hours As needed; 10 tablet. and Forms are Medication Reconciliation Form, Thank You Letter, Antibiotic Education, Prescription Opioid Use. Follow up: Private Physician; When: 2 - 3 days; Reason: Re-evaluation by your physician. Problem is new. Symptoms have improved. pkl
--- NOTE | 2019-11-06 05:43 | ER ---
Nurse's Notes [facility] Name: Mercedes Marin Age: 39 yrs Sex: Female : 1980 Arrival Date: 11/05/2019 Time: 23:26 Bed 2 Private MD: Diagnosis: Epigastric pain. Duodenitis. Chronic renal disease. Gastroparesis Presentation: 11/05 23:46 Presenting complaint: Patient states: she was discharged from the hospital today but bb she is still feeling real bad with pain in her abdomen and back. Transition of care: patient was not received from another setting of care. Onset of symptoms was November 05, 2019. Risk Assessment: Do you want to hurt yourself or someone else? Patient reports no desire to harm self or others. Initial Sepsis Screen: Does the patient meet any 2 criteria? No. Patient's initial sepsis screen is negative. Does the patient have a suspected source of infection? No. Patient's initial sepsis screen is negative. Care prior to arrival: None. 23:46 Method Of Arrival: Wheelchair bb 23:46 Acuity: ALONDRA 3 bb 23:53 Note pt was unable to get her discharge medications filled today. 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 - Social history:: Smoking status: Patient/guardian denies using tobacco. - Ebola Screening: : No symptoms or risks identified at this time. Screenin/10 00:10 Abuse screen: Denies threats or abuse. Denies injuries from another. Nutritional aa1 screening: No deficits noted. Tuberculosis screening: No symptoms or risk factors identified. Fall Risk None identified. Assessment: 00:10 General: Appears in no apparent distress. uncomfortable, Behavior is calm, cooperative, aa1 appropriate for age, quiet. Pain: Complains of pain in epigastric area Quality of pain is described as sharp, Pain began last week. Neuro: Level of Consciousness is awake, alert, obeys commands, Oriented to person, place, time, situation, Moves all extremities. Speech is normal. Respiratory: Airway is patent Respiratory effort is even, unlabored, Respiratory pattern is regular, symmetrical. GI: Abdomen is non-distended, Bowel sounds present X 4 quads. Abd is soft X 4 quads Abdomen is tender to palpation in epigastric area, right upper quadrant and left upper quadrant Reports upper abdominal pain, epigastric pain, nausea. : No signs and/or symptoms were reported regarding the genitourinary system. EENT: No signs and/or symptoms were reported regarding the EENT system. Derm: Skin is intact, is healthy with good turgor, Skin is pink, warm \T\ dry. Musculoskeletal: Circulation, motion, and sensation intact. Capillary refill < 3 seconds. 02:00 Reassessment: Patient appears in no apparent distress at this time. Patient and/or aa1 family updated on plan of care and expected duration. Pain level reassessed. Patient is alert, oriented x 3, equal unlabored respirations, skin warm/dry/pink. Awaiting provider reassessment for d/c. 02:27 Reassessment: Pt requesting more nausea medication. aa1 03:36 Reassessment: Patient appears in no apparent distress at this time. Patient and/or aa1 family updated on plan of care and expected duration. Pain level reassessed. Patient is alert, oriented x 3, equal unlabored respirations, skin warm/dry/pink. Resting quietly; awaiting provider reassessment. 05:27 Reassessment: Patient appears in no apparent distress at this time. Patient and/or aa1 family updated on plan of care and expected duration. Pain level reassessed. Pt resting quietly; awaiting provider reassessment. 06:13 Reassessment: Patient appears in no apparent distress at this time. Patient and/or aa1 family updated on plan of care and expected duration. Pain level reassessed. Patient is alert, oriented x 3, equal unlabored respirations, skin warm/dry/pink. Discussed d/c \T\ f/u instructions with pt \T\ spouse; denies questions or concerns at this time. Ambulatory to lobby with steady gait. Vital Signs: 11/05 23:49 BP 138 / 93; Pulse 82; Resp 14 S; Temp 98.3(O); Pulse Ox 95% on R/A; Weight 65.77 kg bb (R); Height 5 ft. 2 in. (157.48 cm) (R); Pain 08/06; 11/06 00:46 BP 143 / 76; Pulse 81; Resp 16; Pulse Ox 93% on R/A; aa1 02:00 BP 131 / 75; Pulse 77; Resp 18; Pulse Ox 94% on R/A; Pain 7/10; aa1 03:36 BP 131 / 71; Pulse 80; Resp 16; Pulse Ox 96% on R/A; aa1 04:30 BP 141 / 87; Pulse 88; Resp 16; Pulse Ox 95% on R/A; aa1 06:13 BP 154 / 84; Pulse 88; Resp 16; Temp 98.1; Pulse Ox 95% on R/A; Pain 6/10; aa1 11/05 23:49 Body Mass Index 26.52 (65.77 kg, 157.48 cm) ED Course: 11/05 23:26 Patient arrived in ED. cl3 23:49 Triage completed. bb 11/06 00:04 Luis Eduardo Sun MD is Attending Physician. pkl 00:05 Farheen Saravia RN is Primary Nurse. aa1 00:10 Patient has correct armband on for positive identification. Placed in gown. Bed in low aa1 position. Call light in reach. Side rails up X2. Pulse ox on. NIBP on. Warm blanket given. 00:30 Initial lab(s) drawn, by me, sent to lab. Inserted saline lock: 22 gauge in right aa1 forearm, using aseptic technique. Blood collected. 06:13 No provider procedures requiring assistance completed. IV discontinued, intact, aa1 bleeding controlled, No redness/swelling at site. Pressure dressing applied. Administered Medications: 00:35 Drug: NS 0.9% 1000 ml Route: IV; Rate: 125 ml/hr; Site: right forearm; aa1 06:13 Follow up: IV Status: Completed infusion aa1 00:35 Drug: ProTONIX 40 mg Route: IVP; Site: right forearm; aa1 01:35 Follow up: Response: No adverse reaction; Pain is decreased aa1 00:37 Drug: Zofran 4 mg Route: IVP; Site: right forearm; aa1 01:37 Follow up: Response: No adverse reaction; Nausea is decreased aa1 00:39 Drug: morphine 4 mg Route: IVP; Site: right forearm; aa1 01:39 Follow up: Response: No adverse reaction; Pain is decreased aa1 01:02 Drug: GI Cocktail without - (Maalox Suspension 30 ml, Lidocaine Liquid 2 % 15 aa1 ml) Route: PO; 02:00 Follow up: Response: No adverse reaction; Pain is decreased aa1 02:47 Drug: Phenergan 12.5 mg Route: IVP; Site: right forearm; aa1 03:45 Follow up: Response: No adverse reaction; Nausea is decreased aa1 06:05 Drug: Zofran 4 mg Route: IVP; Site: right forearm; aa1 06:13 Follow up: Response: No adverse reaction; Medication administered at discharge. aa1 Outcome: 05:41 Discharge ordered by . pkhumaira 06:13 Discharged to home ambulatory, with significant other. aa1 06:13 Condition: good 06:13 Discharge instructions given to patient, significant other, Instructed on discharge instructions, follow up and referral plans. medication usage, Demonstrated understanding of instructions, follow-up care, medications, Prescriptions given X 1. 06:15 Patient left the ED. aa1 Signatures: Farheen Saravia RN WALDEMAR aa1 Luis Eduardo Sun MD MD pkl Ballard, Brenda RN Mohini Carter cl3
[2019-11-06 06:40] VITALS: O2SAT 95
[2019-11-06 06:42] VITALS: BP 154/84; TEMP 98.1
== END 2019-11-06 06:15 | disposition home or self-care (01) ==
LOC: ER 23:24
DX: R10.13 Epigastric pain (principal); K29.80 Duodenitis without bleeding; K31.84 Gastroparesis; E11.22 Type 2 diabetes mellitus with diabetic chronic kidney disease; I12.9 Hypertensive chronic kidney disease with stage 1 through stage 4 chronic kidney disease, or unspecified chronic kidney disease; N18.9 Chronic kidney disease, unspecified; Z79.4 Long term (current) use of insulin
CPT/HCPCS: 36415; 80048; 80076; 83690; 85025; 96361; 96374; 96375; 99284; C9113; J2270; J2405; J2550; J7030

== ENCOUNTER 2019-12-25 06:05 | Inpatient (IN) | payer SELFPAY ==
--- OUTSIDE RECORDS SUMMARY | 2019-12-25 06:08 | XMS REPORT | Summary of Care ---
:1980 Author Organization [facility] - [address] [address] Care Team Providers Name Role Phone Kavon Khanhanie Twyla Primary Care Provider Reason for Visit Reason Comments Follow-up left message Encounter Details Date Type Department Care Team Description 12/08/2019 Patient Outreach [facility] Radha Angeles Follow-up ([facility]- [address] [place] [address] message ) [place], [place] [id number] Allergies No Known Allergiesdocumented as of this encounter (statuses as of 12/08/2019) Medications Medication Sig Dispensed Refills Start Date End Date Status pantoprazole 40 mg EC Take 1 tablet 60 tablet 2 11/12/2019 Suspended tabletIndications: by mouth 2 Gastritis without (two) times bleeding, unspecified daily. chronicity, unspecified gastritis type Additional information sucralfate 1 gram Take 1 tablet by 120 tablet 2 11/12/2019 Suspended tabletIndications: Gastritis mouth before meals without bleeding, unspecified and at bedtime. chronicity, unspecified gastritis type Additional information carvediloL 25 mg Take 1.5 tablets by 90 tablet 1 11/12/2019 Suspended tabletIndications: mouth 2 (two) times Hypertension, unspecified type daily with meals. Additional information amLODIPine 10 mg Take 1 tablet by 30 tablet 2 11/13/2019 Suspended tabletIndications: mouth daily. Hypertension, unspecified type Additional information furosemide 80 mg Take 0.5 tablets by 30 tablet 2 11/21/2019 Suspended tabletIndications: Stage 3 mouth daily. chronic kidney disease Additional information Polyethylene Glycol 3350 17 Take 2 Packets by 30 Packet 2 11/22/2019 Suspended gram powderIndications: mouth daily. Intractable nausea and vomiting, Gastroparesis Additional information scopolamine transdermal 1 mg Apply 1 Patch to area(s) 10 Each 0 11/24/2019 Suspended over 3 days every 72 (seventy-two) patchIndications: hours. Intractable nausea and vomiting, Gastroparesis Additional information proMETHazine 12.5 mg Insert 1 6 Suppository 1 11/21/2019 Suspended suppositoryIndications: Suppository into Intractable nausea and rectum every 4 vomiting, Gastroparesis (four) hours as needed for Nausea and Vomiting (N/V). Additional information ondansetron 8 mg Take 1 tablet by 21 tablet 1 11/21/2019 Suspended tabletIndications: Nausea and mouth every 8 vomiting, intractability of (eight) hours as vomiting not specified, needed for Nausea unspecified vomiting type and Vomiting (N/V). Additional information proMETHazine 25 mg Take 1 tablet by mouth 14 tablet 0 11/26/2019 Suspended tabletIndications: every 6 (six) hours as Intractable nausea and needed for Nausea and vomiting, Gastroparesis Vomiting (N/V) or N/V alternating with Ondansetron. Additional information metoclopramide HCl 10 mg Take 1 tablet 42 tablet 0 11/26/2019 12/10/2019 Suspended tabletIndications: by mouth Gastroparesis before meals for 14 days. Additional information insulin NPH and regular human inject 13 Units 1 Vial 3 11/26/2019 Suspended 70-30 100 unit/mL (70-30) under the skin 2 injectionIndications: Type 2 (two) times daily diabetes mellitus with stage 3 before breakfast and chronic kidney disease, with dinner for 2 days, long-term current use of insulin THEN 10 Units 2 (two) times daily before breakfast and dinner for 90 days. documented as of this encounter (statuses as of 12/08/2019) Active Problems Problem Noted Date Intractable nausea and vomiting 11/15/2019 Intractable vomiting 11/07/2019 Vomiting 11/07/2019 General counseling and advice for contraceptive management 05/07/2013 Overview: ICD10 Diagnosis Term [employer] Utility Encounter for routine gynecological examination 05/07/2013 Overview: ICD10 Diagnosis Term [employer] Utility Type 2 diabetes mellitus without complications 05/07/2013 Overview: 05/07/2013- Diabetes x 10 years. Previously taking po medication. ICD10 Diagnosis Term [employer] Utility Rubella immune 05/07/2013 Candidiasis of vulva and vagina 05/07/2013 documented as of this encounter (statuses as of 12/08/2019) Immunizations Name Administration Dates Next Due Influenza Virus Vaccine Quad .5 mL IM 6+ MO 11/21/2019 Pneumococcal Polysaccharide, PPSV23 (PNEUMOVAX) 11/21/2019 Rubella 09/06/2008 Td 05/07/2009 documented as of this encounter Social History Tobacco Use Types Packs/Day Years Used Date Never Smoker Smokeless Tobacco: Never Used Alcohol Use Drinks/Week oz/Week Comments No Sex Assigned at Date Recorded Not on file Job Start Date Occupation Industry Not on file Not on file Not on file Travel History Travel Start Travel End No recent travel history available. documented as of this encounter Last Filed Vital Signs Not on filedocumented in this encounter Progress Notes Radha Angeles - 12/08/2019 3:04 PM CST[facility]W- A. Karthik called Ms. Pandey per referral but no answer, did leave a message to call me back. documented in this encounter Plan of Treatment Health Maintenance Due Date Last Done Comments VARICELLA VACCINES (1 of 2 - 1982 2-dose childhood series) EYE EXAM 1991 URINE MICROALBUMIN 1991 DTaP,Tdap,and Td Vaccines (1 - 01/28/1992 05/07/2009 Tdap) FOOT EXAM 1999 PAP SMEAR 05/07/2016 05/07/2013, 05/06/2012, 03/08/2011, Additional history exists HgA1C 05/07/2020 11/07/2019 PNEUMOCOCCAL 0-64 YEARS COMBINED 11/21/2020 11/21/2019 SERIES (2 of 3 - PCV13) LDL-C 12/03/2020 12/03/2019, 11/07/2019 CREATININE (SERUM) 12/07/2020 12/07/2019, 12/06/2019, 12/05/2019, Additional history exists INFLUENZA VACCINE Completed 11/21/2019 documented as of this encounter Results Not on filedocumented in this encounter Insurance Payer Benefit Plan / Subscriber ID Effective Dates Phone Address Type Group [facility] [employer] [id number] 2013-[address] [employer] Agency [employer] [id number] [place] [address] documented as of this encounter
--- OUTSIDE RECORDS SUMMARY | 2019-12-25 06:08 | XMS REPORT ---
:1980 [facility] Address [address] [place] [address] [address] [place] [address] Care Team Providers Name Role Phone Unavailable Unavailable Unavailable Problems This patient has no known problems. Allergies, Adverse Reactions, Alerts This patient has no known allergies or adverse reactions. Medications This patient has no known medications.
--- OUTSIDE RECORDS SUMMARY | 2019-12-25 06:11 | XMS REPORT | Summary of Care ---
:1980 Author Organization [facility] - [facility] Address [address] [place] [phone] Care Team Providers Name Role Phone Liv Pandya Primary Care Provider Reason for Referral (Routine) Status Reason Specialty Diagnoses / Procedures Referred By Referred To Contact Contact New Request Diagnoses Nausea and vomiting, intractability of vomiting not specified, unspecified vomiting type Nathan Crocker Bradley, Procedures Discharge Follow-up: PCP LIV PANDYA; 3-5 Days MD Liv Wakefield [address] [place] [phone] Phone: Fax: MRI/CAT Scan (STAT) Status Reason Specialty Diagnoses / Referred By Referred To Procedures Contact Contact New Request Diagnostic Diagnoses Vomiting, intractability of vomiting not specified, presence of nausea not specified, unspecified vomiting type Nathan Crocker, Radiology Procedures CT HEAD WO CONTRAST [address] [place] [phone] Radiology Services (Routine) Status Reason Specialty Diagnoses / Referred By Referred To Procedures Contact Contact New Request Diagnostic Diagnoses Intractable vomiting with nausea, unspecified vomiting type Nathan Crocker, Radiology Procedures XR KUB [address] [place] [phone] Radiology Services (STAT) Status Reason Specialty Diagnoses / Referred By Referred To Procedures Contact Contact New Request Diagnostic Diagnoses Vomiting, intractability of vomiting not specified, presence of nausea not specified, unspecified vomiting type [place], Radiology Procedures US RETROPERITONEAL COMPLETE US RENAL WITH DOPPLER FAYE Jay [address] [place] [address]. [place] [phone] Radiology Services (STAT) Status Reason Specialty Diagnoses / Referred By Referred To Procedures Contact Contact New Request Diagnostic Diagnoses Generalized edema Yasmeen, Radiology Procedures XR CHEST 1 VW Nilsa Harper MD [address] [place] [phone] MRI/CAT Scan (STAT) Status Reason Specialty Diagnoses / Referred By Referred To Procedures Contact Contact New Request Diagnostic Diagnoses Generalized edema Yasmeen, Radiology Procedures CT ABDOMEN PELVIS WO CONTRAST Nilsa Harper MD [address] [place] [phone] Reason for Visit Reason Comments Vomiting Auth/Cert Status Reason Specialty Diagnoses / Referred By Referred To Procedures Contact Contact Emergency Medicine Ed-Emergency Dept [address] [place] [phone] Encounter Details Date Type Department Care Team Description 11/06/2019 - [facility] (Nilsa Harris MD [address] [place] [phone] Intractable 11/12/2019 Encounter 11C) Nathan Crocker MD [address] [place] [phone] vomiting [facility] Sondra Mcdermott MD [address] [place] [address]. [place] [phone] [place] [phone] Allergies No Known Allergiesdocumented as of this encounter (statuses as of 11/12/2019) Medications Medication Sig Dispensed Refills Start End Date Status Date furosemide 80 mg Take 1 tablet 30 tablet 2 Active tabletIndications: by mouth 0 Stage 3 chronic daily. kidney disease amLODIPine 10 mg Take 1 tablet 30 tablet 2 Active tabletIndications: by mouth 0 Hypertension, daily. unspecified type carvediloL 25 mg Take 1.5 90 tablet 1 Active tabletIndications: tablets by 0 Hypertension, mouth 2 (two) unspecified type times daily with meals. insulin NPH and inject 10 1 Vial 3 Active regular human 70-30 Units under 0 100 unit/mL (70-30) the skin 2 injectionIndication (two) times s: Type 2 diabetes daily before mellitus with stage breakfast and 3 chronic kidney dinner. disease, with long-term current use of insulin metoclopramide HCl Take 1 tablet 90 tablet 2 Active 10 mg by mouth 0 tabletIndications: before meals. Gastroparesis ondansetron 8 mg Take 1 tablet 21 tablet 0 Active tabletIndications: by mouth every 0 Nausea and 8 (eight) vomiting, hours as intractability of needed for vomiting not Nausea and specified, Vomiting unspecified (N/V). vomiting type pantoprazole 40 mg Take 1 tablet 60 tablet 2 Active EC by mouth 2 0 tabletIndications: (two) times Gastritis without daily. bleeding, unspecified chronicity, unspecified gastritis type sucralfate 1 gram Take 1 tablet 120 tablet 2 Active tabletIndications: by mouth 0 Gastritis without before meals bleeding, and at unspecified bedtime. chronicity, unspecified gastritis type insulin NPH-insulin inject 10 0 11/12/19 Discontinued regular (NOVOLIN Units under 20 70/30) 100 unit/mL the skin 2 (70-30) syringe (two) times daily. proMETHazine 25 mg Take 1 tablet 12 tablet 0 11/07/19 Discontinued tabletIndications: by mouth every 9 20 (Error) Abdominal pain, 6 (six) hours unspecified as needed for abdominal location Nausea and Vomiting (N/V). traMADol (ULTRAM) Take 1 tablet 20 tablet 0 11/07/19 Discontinued 50 mg by mouth every 9 20 (Error) tabletIndications: 6 (six) hours Abdominal pain, as needed for unspecified Pain (scale abdominal location 7-10). metoprolol tartrate Take 100 mg by 0 11/12/19 Discontinued 100 mg tablet mouth 2 (two) 20 times daily. furosemide (LASIX) Take 40 mg by 0 11/12/19 Discontinued 40 mg tablet mouth every 20 (Reorder) morning and evening. metoclopramide HCl Take 1 tablet 90 tablet 2 11/12/19 Discontinued 10 mg by mouth 0 20 (Reorder) tabletIndications: before meals Gastroparesis for 90 days. ondansetron 8 mg Take 1 tablet 21 tablet 0 11/12/19 Discontinued tabletIndications: by mouth every 0 20 (Reorder) Nausea and 8 (eight) vomiting, hours as intractability of needed for vomiting not Nausea and specified, Vomiting (N/V) unspecified for up to 7 vomiting type days. pantoprazole 40 mg Take 1 tablet 60 tablet 2 11/12/19 Discontinued EC by mouth 2 0 20 (Reorder) tabletIndications: (two) times Gastritis without daily. bleeding, unspecified chronicity, unspecified gastritis type sucralfate 1 gram Take 1 tablet 120 tablet 2 11/12/19 Discontinued tabletIndications: by mouth 0 20 (Reorder) Gastritis without before meals bleeding, and at unspecified bedtime. chronicity, unspecified gastritis type insulin NPH and inject 10 1 Vial 3 11/12/19 Discontinued regular human 70-30 Units under 0 20 (Reorder) 100 unit/mL (70-30) the skin 2 injectionIndication (two) times s: Type 2 diabetes daily before mellitus with stage breakfast and 3 chronic kidney dinner. disease, with long-term current use of insulin documented as of this encounter (statuses as of 11/12/2019) Active Problems Problem Noted Date Intractable vomiting 11/07/2019 Vomiting 11/07/2019 General counseling and advice for contraceptive management 05/07/2013 Overview: ICD10 Diagnosis Term Lead Sql Developer Utility Encounter for routine gynecological examination 05/07/2013 Overview: ICD10 Diagnosis Term Lead Sql Developer Utility Type 2 diabetes mellitus without complications 05/07/2013 Overview: 05/07/2013- Diabetes x 10 years. Previously taking po medication. ICD10 Diagnosis Term Lead Sql Developer Utility Rubella immune 05/07/2013 Candidiasis of vulva and vagina 05/07/2013 documented as of this encounter (statuses as of 11/12/2019) Immunizations Name Administration Dates Next Due Rubella 09/06/2008 Td 05/07/2009 documented as of [...] of this encounter Last Filed Vital Signs Vital Sign Reading Time Taken Comments Blood Pressure 130/70 11/12/2019 12:00 PM COLLECTIONS ASSISTANT Pulse 85 11/12/2019 12:00 PM COLLECTIONS ASSISTANT Temperature 36.7 C (98.1 F) 11/12/2019 12:00 PM COLLECTIONS ASSISTANT Respiratory Rate 18 11/12/2019 12:00 PM COLLECTIONS ASSISTANT Oxygen Saturation 92% 11/12/2019 12:00 PM COLLECTIONS ASSISTANT Inhaled Oxygen Concentration - - Weight 70.3 kg (154 lb 14.4 oz) 11/12/2019 11:51 AM COLLECTIONS ASSISTANT Height - - Body Mass Index 28.33 05/07/2013 8:52 AM CDT documented in this encounter Discharge Summaries Wendy Jo RN - 11/12/2019 12:04 PM COLLECTIONS ASSISTANT Care Management Discharge Disposition Note (DCDN) 5-2-1 Interventions: Disease specific education;Intensive medication reconciliation/management;Teachback;Clear discharge plan;Follow-up appointments 5-2-1 Providers: Physician;Patient Accounts Specialist/Director [employer] 5-2-1 Patient Capacity Improvements: Transportation arrangements Discharge Plan for ongoing care and services: Is this a new referral: Patient Choice completed for referred services: DME location: Other DME location: Durable Medical Equipment: Home Health location: Discharge location(s): Patient choice completed for referred services: Discussed with patient/patients family involved in decision making: Patient or family caregiver understands, and agrees with discharge plan. Community resources/referrals made or provided to patient: Resources/Referrals: Transportation: Private Vehicle Mental Status: Alert & Oriented to Person,Place & Time Living Arrangement: Home Other living arrangement: Address of living arrangement: [address] [place] [address] [address], [place] [address] Funding Resources: Self Pay Nursing informed of discharge plan: Yes Name of RN informed: WALDEMAR Denton Estimated discharge date: 11/12/19 Time: Additional Information: Patient will dc home with Bronwyn Pratt (Dtr) [phone]. No needs atthis time. -KT CM/SW Name & Contact number: Wendy Jo RN Ph. [phone] The following information has been provided to the facility noted above: reason for the patient discharge or transfer; patients physical and psychosocial status; summary of care, treatment, servicesprovided to patient; and the patient progress toward goals. documented in this encounter Progress Notes Wendy Jo RN - 11/11/2019 4:00 PM CSTCare Management Continued Stay Assessment LOS Day: 4 Estimated /Planned Discharge Date: 11/12/19 [place] female 39 year old Date CM/SW last Face to Face completed with patient/family: 11/11/19 Funding source: No coverage found. PCP:Liv Pandya Patient/Family/MPOA/Caregiver Engaged with Transitional Care Plan: yes Patient/Family/MPOA/Caregiver concurs with proposed discharge plan: yes Name, Relationship to Patient and contact number of individual acting on behalf of the patient: patient Chief Complaint/Admitting Dx:intractable vomiting Hospital Problems: Intractable vomiting Vomiting Summary of hospital course: per chart, "Mercedes Pandey is a 39 year old female with PMH of HTN, DMand CKD 3 who presented with month long history of nausea, vomiting and anasarca. Labs remarkable for nephrotic range proteinuria and hematuria concerning for nephritic/nephrotic syndrome. 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 Nephrology was consulted for evaluation of kidney function and initially had concernfor glomerulonephritis given low C3 but bland sediment UA without dysmorphic RBCs and improving renal function with diuresis made this less likely. Renal biopsy deferred. Medications changed from IV Tiffanie to evaluate response, and if continues to do well, is possible d/c on 11/12." CM/SW Interventions/Resources provided: SFA completed; patient lives with spouse and daughter who provide support. Will discharge home with Amarjit Pandey () [phone]. CM/SW Interventions/Resources still needed: pending final discharge recs Anticipated Discharge Destination: Home If DC to home, who will support patient: Amarjit Pandey () Anticipated DME needs: None Referrals sent: not applicable If no, why/when will referral be sent:: n/a Has patient been accepted: not applicable Revised plan if not accepted: home with family support What is the clinical care happening right now that must be done in the hospital and only the hospital: switch IV diuresis to PO and monitor for effectiveness Please addend note following Length of Stay rounds and complete section below Were any recommendations made during LOS rounds on this patient:not applicable If yes, what new recommendations were made at LOS: n/a Wendy Jo RN, BSN Embedded Linux Engineer [email or web address] (O) [phone] (C) [phone] SAndree dennison MD - 11/11/2019 7:12 AM CST I personally examined the patient on 11/11/2019 12:26 and have verified the medical student documentation and/or findings, including the history, physical exam, and medical decision making. Additionally, I have personally performed or re-performed the physical exam and medical decision making activities of this patient's evaluation and management service. I have made corrections as deemed necessary tothe documentation. Andree Sen MD Internal Medicine PGY-3 Medicine [facility] Progress Note Date of Service: 11/11/2019 11:14, HD #: 4 CC: N/V/epigastric pain 24-Hour Events: No events overnight Subjective: Patient reports she is feeling better today and that abdominal pain ceased yesterday afternoon. She reports 2 stools yesterday evening with some light diarrhea. She has been eating food and drinking liquids without difficulty. Denies any headache, shortness of breath, or chest pain. Physical Exam: Temp: [36.4 C (97.6 F)-36.8 C (98.2 F)] Pulse: [66-98] Resp: [18] BP: (120-158)/(61-88) Intake/Output Summary (Last 24 hours) at 11/11/2019 1114 Last data filed at 11/11/2019 1000 Gross per 24 hour Intake 480 ml Output 600 ml Net -120 ml Physical Exam Constitutional: She is well-developed, well-nourished, and in no distress. Cardiovascular: Normal rate, regular rhythm and normal heart sounds. Pulmonary/Chest: Effort normal and breath sounds normal. Abdominal: Soft. Bowel sounds are normal. She exhibits no distension. There is no tenderness. Musculoskeletal: Normal range of motion. She exhibits no edema. Correction to above: she exhibits trace to mild 1+ bilateral extremity edema with bibasilar crackles Labs: Reviewed Img: CT Head 11/10/2019 IMPRESSION Impression: No acute intracranial abnormality. KUB 11/10/2019 IMPRESSION No radiographic evidence of acute abdominopelvic abnormality. Assessment and Plan: Mercedes Pandey is a 39 year old female admitted with the following hospital issues Anasarca 2/2 nephrotic syndrome GUS (improved, ?resolved) on CKD of unknown baseline Patient presented with anasarca with nephrotic range proteinuria. 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 Nephrology was planning biopsy but deferred at this time given improvement in renal function with diuresis. Patient is ambulating without dizziness and edema has significantly reduced. Will transition to PO diuresis to evaluate continued response. - d/c IV lasix 40 mg and start PO lasix 80 mg - Strict I/Os and daily weight - F/U Nephro recs Gastritis/duodenal ulcers Gastroparesis Abdominal pain - resolved Having persistent nausea and vomiting thought to be from gastroparesis and or gastritis/duodenoal ulcers; however symptoms have improved with Reglan and antiemetics and she now has been defecating and eating well. Has not required significant use of anti-emetics x24 hours and abdominal pain has subsided. - transition IV to PO Pantoprazole 40 mg BID - Restarted regular diet - C/w senokot to promote bowel movement - d/c GI consult Fall Patient reportedly fell while on the commode in an attempt to wipe herself. Possibly vasovagal response however also could consider orthostatic given decreased PO intake. CTH was negative and patient is currently ambulating without distress. Hospital Care Issues: Pain control: fentanyl. Prophylaxis: DVT- heparin Stress Ulcer: pantoprazole Code Status: FULL [place], MS4 END OF DAILY PROGRESS NOTE Hospital Course: Mercedes Pandey is a 39 year old female with PMH of HTN, DM and CKD 3 who presented with month longhistory of nausea, vomiting and anasarca. Labs remarkable for nephrotic range proteinuria and hematuria concerning for nephritic/nephrotic syndrome. Also concern that nausea and vomiting may be due to gastroparesis and abdominal pain 2/2 gastritis/duodenitis (negative H pylori but +clean ulcers on EGDPTA).She was started on reglan and anti-emetics eventually with good relief. Nephrology was consulted for evaluation of kidney function and initially had concern for glomerulonephritis given low C3 butbland sediment UA without dysmorphic RBCs and improving renal function with diuresis made this less likely. Renal biopsy deferred. Medications changed from IV to PO to evaluate response, and if continues to do well, is possible d/c on 11/12. CURRENT MEDICATIONS Current Facility-Administered Medications Medication Dose Route Frequency Last Rate Last Dose furosemide (LASIX) tablet 80 mg 80 mg Oral QAM+PM pantoprazole (PROTONIX) EC tablet 40 mg 40 mg Oral BID ondansetron (ZOFRAN (PF)) injection 4 mg 4 mg Slow IV Push Q6HPRN 4 mg at 11/10/19 0845 traMADol (ULTRAM) tablet 50 mg 50 mg Oral Q6HPRN 50 mg at 11/10/19 1104 metoclopramide HCl (REGLAN) tablet 10 mg 10 mg Oral AC 10 mg at 11/11/19 0840 trimethobenzamide (TIGAN) injection 100 mg 100 mg Intramuscular Q6HPRN 100 mg at 11/10/19 0304 maalox:diphenhydrAMINE:lidocaine 2 % viscous 1:1:1 (FIRST-MOUTHWASH BLM) oral suspension 15 mL 15 mL Oral (Swish & Swallow) QDAILYPRN 15 mL at 10/16 0902 sennosides (SENOKOT) tablet 8.6 mg 8.6 mg Oral QDAILYPRN 8.6 mg at 0840 amLODIPine (NORVASC) tablet 10 mg 10 mg Oral DAILY 10 mg at 11/11/19 0840 carvedilol (COREG) tablet 37.5 mg 37.5 mg Oral BID MEALS 37.5 mg at 11/11 0840 heparin (porcine) injection 5,000 Units 5,000 Units Subcutaneous Q12H 5, 000 Units at 11/11/200740 hydralAZINE (APRESOLINE) injection 10 mg 10 mg Intravenous Q6HPRN insulin NPH and regular human 70-30 (HUMULIN 70-30 U-100 INSULIN) 100 unit/ mL (70-30) injection 10 Units 10 Units Subcutaneous BIDAC 5 Units at 0844 proMETHazine (PHENERGAN) 25 mg in NaCl 0.9% (NS) 50 mL IV piggyback 25 mg IV Piggyback [id number] mg at 11/10/19 0533 Sliding Scale Insulin-Regular + Fsbg Testing Subcutaneous AC+HS Stopped at 11/10/19 2100 sucralfate (CARAFATE) tablet 1 g 1 g Oral AC+HS 1 g at 11/11/19 0836 ECTIONS ASSISTANT Associated attestation - Nathan Crocker MD - 11/11/2019 2:47 PM CSTI personally examined the patient on 11/11/[address] Candelario resident' s note as written,including any changes or additions that the resident may have made to Yadiel's medical student note. I actively participated in the decision making process. Please see the resident's note for additional details. Pt feeling much better today with significant improvement in epigastric pain and n/ v. Sheis tolerating po and states that she was hungry this morning. Will plan on switching diuretics, ppi,and anti-emetics to po today. If patient continues to improve and has adequate diuresis, will plan on discharge tomorrow. Sergo White MD - 11/10/2019 11:15 AM CST [facility] Progress Note Date of Service: 11/10/2019 11:15, HD #: 3 CC: N/V/epigastric pain 24-Hour Events: No events overnight Subjective: Still having abdominal pain, mainly epigastric, associated with nausea and vomiting. Unable to tolerate PO intake. Reports unable to pass gas Physical Exam: Temp: [36.4 C (97.6 F)-37.2 C (99 F)] Pulse: [90-98] Resp: [18] BP: (122-152)/(55-70) Intake/Output Summary (Last 24 hours) at 11/10/2019 1115 Last data filed at 11/10/2019 0951 Gross per 24 hour Intake 50 ml Output 2250 ml Net -2200 ml Physical Exam Cardiovascular: Normal rate, regular rhythm, normal heart sounds and intact distal pulses. Pulmonary/Chest: Effort normal and breath sounds normal. Abdominal: Soft. Bowel sounds are normal. There is tenderness (epigastric). Musculoskeletal: She exhibits edema (3+ BUE and BLE ). Psychiatric: She has a normal mood and affect. Labs: Reviewed Img: Reviewed Assessment and Plan: Mercedes Pandey is a 39 year old female admitted with the following hospital issues Nephritic vs nephrotic syndrome Anasarca GUS on CKD Patient presented with anasarca with nephrotic range proteinuria. Currently undergoing workup for GUS on CKD. 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 Nephrology was planning biopsy but deferred at this time given improvement in renal function. -Nephro, pending recs -continue IV lasix 40 mg q12h Gastritis/duodenal ulcers Gastroparesis Abdominal pain Having persistent nausea and vomiting thought to be from gastroparesis and or gastritis/duodenoal ulcers; however symptoms have not improved with Reglan and antiemetics. She now states not passing gas so will need evaluation with KUB - continue PO Reglan 10 mg AC - continue antiemetics - Pain control - KUB to r/o obstruction - Dulcolax suppository to promote bowel movement Fall Patient reportedly fell while on the commode in an attempt to wipe herself. Possibly vasovagal response however also could consider orthostatic given decreased PO intake - [facility] Hospital Care Issues: Pain control: fentanyl. Prophylaxis: DVT- heparin Stress Ulcer: pantoprazole Code Status: FULL Sergo White MD Internal Medicine PGY-3 Pager #[phone] END OF DAILY PROGRESS NOTE Hospital Course: Mercedes Pandey is a 39 year old female with PMH of HTN, DM and CKD 3 who presented with month longhistory of nausea, vomiting and anasarca. Labs remarkable for nephrotic range proteinuria and hematuria concerning for nephritic/nephrotic syndrome. Also concern that nausea and vomiting may be due to gastroparesis and abdominal pain 2/2 gastritis/duodenitis (negative H pylori but +clean ulcers on EGDPTA).She was started on reglan, antiemetics and pain medicine. Nephrology was consulted for evaluation of kidney function. CURRENT MEDICATIONS Current Facility-Administered Medications Medication Dose Route Frequency Last Rate Last Dose bisacodyL (DULCOLAX) suppository 10 mg 10 mg Rectal ONCE ondansetron (ZOFRAN (PF)) injection 4 mg 4 mg Slow IV Push Q6HPRN 4 mg at 11/10/19 0845 traMADol (ULTRAM) tablet 50 mg 50 mg Oral Q6HPRN 50 mg at 11/10/19 1104 metoclopramide HCl (REGLAN) tablet 10 mg 10 mg Oral AC 10 mg at 11/10/19 0851 trimethobenzamide (TIGAN) injection 100 mg 100 mg Intramuscular Q6HPRN 100 mg at 11/10/19 0304 FENTanyl PF (SUBLIMAZE (PF)) injection 12.5 mcg 12.5 mcg Slow IV Push Q6HPRN 12.5 mcg at 11/10/19 0539 maalox:diphenhydrAMINE:lidocaine 2 % viscous 1:1:1 (FIRST-MOUTHWASH BLM) oral suspension 15 mL 15 mL Oral (Swish & Swallow) QDAILYPRN 15 mL at 10/16 0902 pantoprazole (PROTONIX) 40 mg in NaCl 0.9% (NS) 100 mL MINI-BAG 40 mg IV Piggyback Q12H 40 mgat 11/10/19 0852 sennosides (SENOKOT) tablet 8.6 mg 8.6 mg Oral QDAILYPRN amLODIPine (NORVASC) tablet 10 mg 10 mg Oral DAILY 10 mg at 11/10/19 0852 carvedilol (COREG) tablet 37.5 mg 37.5 mg Oral BID MEALS 37.5 mg at 11/10 0852 furosemide (LASIX) injection 40 mg 40 mg Slow IV Push Q12H 40 mg at 11/10 0845 heparin (porcine) injection 5,000 Units 5,000 Units Subcutaneous Q12H 5, 000 Units at 11/10/200752 hydralAZINE (APRESOLINE) injection 10 mg 10 mg Intravenous Q6HPRN insulin NPH and regular human 70-30 (HUMULIN 70-30 U-100 INSULIN) 100 unit/ mL (70-30) injection 10 Units 10 Units Subcutaneous BIDAC Stopped at 1630 proMETHazine (PHENERGAN) 25 mg in NaCl 0.9% (NS) 50 mL IV piggyback 25 mg IV Piggyback [id number] mg at 11/10/19 0533 Sliding Scale Insulin-Regular + Fsbg Testing Subcutaneous AC+HS Stopped at 11/07/19 2100 sucralfate (CARAFATE) tablet 1 g 1 g Oral AC+HS 1 g at 11/10/19 0851 ECTIONS ASSISTANT Associated attestation - Nathan Crocker MD - 11/10/2019 1:38 PM CSTI personally examined the patient on 11/10/[address] White's resident note as written. I actively participated in the decision-making process. Please see the resident's note for additional details. Pt's crea stable, diuresing well, BP normalized, and BG controlled. Unfortunately, patientcontinues to have epigastric pain and n/v, despite being on IV PPI BID and multiple IV anti-emetics (Reglan, phenergan, zofran, and tigan). Pt has not had a BM since being admitted so KUB ordered. Consider GI consult if symptoms not improving and no other clear cause for her symptoms. Pt also had a fall while going to the bathroom this morning. Pt hit her head so CTH obtained, results were unremarkable. Cynthia Belcher LMSW - 11/10/2019 10:47 AM CSTCare Management Social Functional Assessment Patient Name: Mercedes Pandey Age: [age] year old Sex: female Previous admit date: N/A Pt is 39yo female who resides at home with her and dtr. Support system consists of her , dtr, and sister. Community resources utilized are [facility] [employer] Fact Sheet, [facility] Indigent Health Care Program, and Prescription Assistance Program. Anticipated discharge plan is home with family providing transport. Current diagnosis and co-morbidities: intractable vomiting Readmission Questions: Was patient discharged from any acute care hospital within the last 30 days: No Social Functional Assessment: Primary language spoken/preferred: Bolivian Mental Status: Alert & Oriented to Person,Place & Time Information given by: Child Name and phone number of person giving information: Bronwyn Pratt (Dtr) Patient's support system: Child;Other;Spouse Name and number of support system: Amarjit Pandey () [phone]; Bronwynfina Pratt (Dtr) [phone]; Carlyn Ellis (Sister) [phone] Primary Downstairs Maid: Self;Same as Support System MPOA: No Living Arrangement: Mobile Home Address of living arrangement : [address] [place] [address] Persons living in home: Self;Child;Spouse Names & numbers of persons living in home: Amarjit Pandey () ; Bronwyn Pratt (Dtr) [phone] Baseline functional status- ambulation: Independent Functional status-baseline personal care: Independent Baseline functional status- driving: Independent Baseline functional status- grocery shopping: Independent Functional status-baseline housekeeping: Independent Functional status-baseline meal prep: Independent Current functional status same as prior: No Current functional status- ambulation: Requires minimal to moderate assistance Current functional status- personal care: Requires minimal to moderate assistance Current functional status- driving: Requires minimal to moderate assistance Current functional status- grocery shopping: Requires minimal to moderate assistance Current functional status-house keeping: Requires minimal to moderate assistance Current functional status- meal preparation: Requires minimal to moderate assistance Do you have a PCP?: Yes Name of PCP: Liv Pandya [facility] Agency: No Provider Services: No DME Company: No Hemodialysis: No Community resources utilized: [facility] Resources Fact Sheet;[facility] Indigent Health Care Program;Prescription Assistance Program(s) Funding Resources: Self Pay Prescription coverage plan: Self Pay Pharmacy where meds are filled: Other Other pharmacy: [facility] in [place], [place] Anticipated services prior to disharge: Continue Medical Eval Expected mode of discharge transportation: Same as support system Additional info required for discharge planning: Pending medical evaluation Recommended discharge plan: Home SFA Complete: Social Functional Assessment complete: Yes Alcohol Use Screening (AUDIT-C) How often do you have a drink containing alcohol?: Never SCORE: 0 Did patient elect to have resources provided: No Role of Care Management explained. Any issues or concerns with obtaining/affording your medications at home: no. Are you or your support system able to sheepskin pickler medications at discharge: yes. Describe: Family transport. Cynthia Belcher LMSW [facility] [employer] Care Management [phone] Sergo Dumont MD - 11/09/2019 11:30 AM CST [facility] Progress Note Date of Service: 11/09/2019 11:31, HD #: 2 CC: N/V/epigastric pain 24-Hour Events: No events overnight Subjective: Still having nausea and vomiting but improved since admission. She continues to have epigastric abdominal pain and has yet to have a bowel movement. She denies fevers, chills, chest pain or shortness of breath. Physical Exam: Temp: [36.4 C (97.5 F)-36.7 C (98 F)] Pulse: [87-92] Resp: [18] BP: (120-145)/(60-72) Intake/Output Summary (Last 24 hours) at 11/09/2019 1131 Last data filed at 11/08/2019 1624 Gross per 24 hour Intake Output 1000 ml Net -1000 ml Physical Exam Constitutional: She appears well-developed. Cardiovascular: Normal rate, regular rhythm, normal heart sounds and intact distal pulses. Pulmonary/Chest: Effort normal and breath sounds normal. Abdominal: Soft. Bowel sounds are normal. Musculoskeletal: She exhibits edema (3+ BUE and BLE ). Skin: Skin is warm. Psychiatric: She has a normal mood and affect. 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 Currently undergoing workup for UGS on CKD. 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 Not yet fully tolerating PO intake and has not had a bowel movmenent - Transition to PO Reglan 10 mg AC - continue IV PPI Hospital Care Issues: Pain control: fentanyl. Prophylaxis: DVT- heparin Stress Ulcer: pantoprazole Code Status: FULL Sergo White MD Internal Medicine PGY-3 Pager #[phone] END OF DAILY PROGRESS NOTE Hospital Course: Mercedes Pandey is a 39 year old female with PMH of HTN, DM and CKD 3 who presented with month longhistory of nausea, vomiting and anasarca. Labs remarkable for nephrotic range proteinuria and hematuria concerning for nephritic/nephrotic syndrome. Also concern that nausea and vomiting may be due to gastroparesis and abdominal pain 2/2 gastritis/duodenitis (negative H pylori but +clean ulcers on EGDPTA). BP,pain and nausea medication control adjusted, and pending urine studies. Plan for kidney biopsy this coming week per nephro. CURRENT MEDICATIONS Current Facility-Administered Medications Medication Dose Route Frequency Last Rate Last Dose FENTanyl PF (SUBLIMAZE (PF)) injection 12.5 mcg 12.5 mcg Slow IV Push Q6HPRN maalox:diphenhydrAMINE:lidocaine 2 % viscous 1:1:1 (FIRST-MOUTHWASH BLM) oral suspension 15 mL 15 mL Oral (Swish & Swallow) QDAILYPRN 15 mL at 10/16 0902 pantoprazole (PROTONIX) 40 mg in NaCl 0.9% (NS) 100 mL MINI-BAG 40 mg IV Piggyback Q12H 40 mgat 11/09/19 0855 sennosides (SENOKOT) tablet 8.6 mg 8.6 mg Oral QDAILYPRN amLODIPine (NORVASC) tablet 10 mg 10 mg Oral DAILY 10 mg at 11/09/19 0843 carvedilol (COREG) tablet 37.5 mg 37.5 mg Oral BID MEALS 37.5 mg at 11/09 0843 furosemide (LASIX) injection 40 mg 40 mg Slow IV Push Q12H 40 mg at 11/09 0836 heparin (porcine) injection 5,000 Units 5,000 Units Subcutaneous Q12H 5, 000 Units at 11/08/201809 hydralAZINE (APRESOLINE) injection 10 mg 10 mg Intravenous Q6HPRN insulin NPH and regular human 70-30 (HUMULIN 70-30 U-100 INSULIN) 100 unit/ mL (70-30) injection 10 Units 10 Units Subcutaneous BIDAC 5 Units at 0900 metoclopramide HCl (REGLAN) injection 10 mg 10 mg Slow IV Push TIDAC 10 mg at 11/09/19 0855 ondansetron (ZOFRAN (PF)) injection 4 mg 4 mg Slow IV Push Q6HPRN 4 mg at 11/09/19 0836 proMETHazine (PHENERGAN) 25 mg in NaCl 0.9% (NS) 50 mL IV piggyback 25 mg IV Piggyback [id number] mg at 11/09/19 0212 Sliding Scale Insulin-Regular + Fsbg Testing Subcutaneous AC+HS Stopped at 11/07/19 2100 sucralfate (CARAFATE) tablet 1 g 1 g Oral AC+HS 1 g at 11/09/19 0843 traMADol (ULTRAM) tablet 50 mg 50 mg Oral Q6HPRN 50 mg at 11/08/19 1909 ECTIONS ASSISTANT Associated attestation - Nathan Crocker MD - 11/09/2019 1:46 PM CSTI personally examined the patient on 11/09/[address] White's resident note as written. I actively participated in the decision-making process. Please see the resident's note for additional details. Pt continues to endorse improvement in epigastric pain, n/v, and swelling. Pt diuresed well yesterday with significant improvement in HTN. Her crea has downtrended slightly. Nephro tentatively planning on renal biopsy. Emir Pacheco MD - 11/08/2019 8:42 AM CST [facility] Progress Note Date of Service: 11/08/2019 08:42, HD #: 1 CC: N/V/epigastric pain 24-Hour Events: HTN 170s/80s, adjusted BP meds; patient able to tolerate PO now s/p morphine Poor PO intake Subjective: States ongoing abdominal pain and N/V as well during this pain although has improved. Denies any hemoptysis/melena/hematochezia/F/C/diarrhea. Physical Exam: Temp: [36.8 C (98.2 F)-37.4 C (99.4 F)] Pulse: [95-108] Resp: [16-18] BP: (155-179)/(69-91) MAP (mmHg): [99-101] Intake/Output Summary (Last 24 hours) at 11/08/2019 0842 Last data filed at 11/08/2019 0722 Gross per 24 hour Intake 300 ml Output 1200 ml Net -900 ml General: alert and oriented x 4 (person, place, date/time and situation); no apparent distress HEENT: normocephalic atraumatic Neck: supple, no lymphadenopathy, no bruits, no JVD Lungs: clear to auscultation bilaterally Cardio: S1, S2 normal; no murmurs, rubs or gallops Abdomen: soft, tender, ND Extremities: +2-3 edema b/l Skin: no rashes Neuro: alert and oriented x 3 Labs: PENDING ANCA/GABRIELLE/24 hour urine protein Low C3, WNL C4 Img: Reviewed Assessment and Plan: Mercedes Pandey is a 39 year old female admitted with the following hospital issues N/V/ Abdominal pain 2/2 likely gastritis/duoneal clean ulcers/duodenitis GUS on CKD III / Volume overload 2/2 need r/o GN (nephrotic vs nephritic) HTN DMII Normocytic anemia c/w GRANT/ AoCKD *Ongoing diuresis due to volume overload and Cr improving, pending urine studies. N/V/pain 2/2 findings as above, and undergoing sx control. -Nephro on board; appreciate reccs> PENDING Urine studies, plan for kidney biopsy next week (NPO@NH now) -inc IV lasix from qd to BID -inc coreg -added hydralazine q6hprn -NPH BIDAC + SSI -increased IV protonix from qd to BID + carafate -GI cocktail prior meals PRN -fentanyl q4hprn + senokot qdprn Hospital Care Issues: Pain control: fentanyl. Prophylaxis: DVT- heparin Stress Ulcer: pantoprazole Code Status: FULL Emir Pacheco MD, MPH Internal Medicine PGY-3 [place] Team Physician # [id number] Pager # [phone] END OF DAILY PROGRESS NOTE Hospital Course: Mercedes Pandey is a 39 year old female with PMH of HTN, DM and CKD 3 who presented with month longhistory of nausea, vomiting and anasarca. Labs remarkable for nephrotic range proteinuria and hematuria concerning for nephritic/nephrotic syndrome. Also concern that nausea and vomiting may be due to gastroparesis and abdominal pain 2/2 gastritis/duodenitis (negative H pylori but +clean ulcers on EGDPTA). BP,pain and nausea medication control adjusted, and pending urine studies. Plan for kidney biopsy this coming week per nephro. CURRENT MEDICATIONS Current Facility-Administered Medications Medication Dose Route Frequency Last Rate Last Dose KCL (POTASSIUM CHLORIDE) 40 mEq in NaCl 0.9% (NS) piggyback 40 mEq IV Piggyback ONCE maalox:diphenhydrAMINE:lidocaine 2 % viscous 1:1:1 (FIRST-MOUTHWASH BLM) oral suspension 15 mL 15 mL Oral (Swish & Swallow) QDAILYPRN magnesium sulfate in water 2 gram/50 mL (4 %) infusion 2 g 2 g IV Piggyback ONCE amLODIPine (NORVASC) tablet 10 mg 10 mg Oral DAILY carvedilol (COREG) tablet 37.5 mg 37.5 mg Oral BID MEALS famotidine (PEPCID AC) tablet 10 mg 10 mg Oral BID 10 mg at 11/08/19 0804 furosemide (LASIX) injection 40 mg 40 mg Slow IV Push Q12H heparin (porcine) injection 5,000 Units 5,000 Units Subcutaneous Q12H 5, 000 Units at 11/07/201923 hydralAZINE (APRESOLINE) injection 10 mg 10 mg Intravenous Q6HPRN insulin NPH and regular human 70-30 (HUMULIN 70-30 U-100 INSULIN) 100 unit/ mL (70-30) injection 10 Units 10 Units Subcutaneous BIDAC 5 Units at 1628 metoclopramide HCl (REGLAN) injection 10 mg 10 mg Slow IV Push TIDAC 10 mg at 11/07/19 1630 ondansetron (ZOFRAN (PF)) injection 4 mg 4 mg Slow IV Push Q6HPRN 4 mg at 11/08/19 0425 pantoprazole (PROTONIX) 40 mg in NaCl 0.9% (NS) 100 mL MINI-BAG 40 mg IV Piggyback DAILY 40 mg at 11/07/19 1032 Polyethylene Glycol 3350 (MIRALAX) powder 17 g 17 g Oral DAILY proMETHazine (PHENERGAN) 25 mg in NaCl 0.9% (NS) 50 mL IV piggyback 25 mg IV Piggyback [id number] mg at 11/07/19 2334 sennosides-docusate sodium (SENOKOT S) 8.6-50 mg per tablet 1 tablet 1 tablet Oral DAILY Sliding Scale Insulin-Regular + Fsbg Testing Subcutaneous AC+HS Stopped at 11/07/19 2100 sucralfate (CARAFATE) tablet 1 g 1 g Oral AC+HS 1 g at 11/08/19 0804 traMADol (ULTRAM) tablet 50 mg 50 mg Oral Q6HPRN 50 mg at 11/08/19 0804 ECTIONS ASSISTANT Associated attestation - Nathan Crocker MD - 11/08/2019 1:23 PM CSTI personally examined the patient on 11/08/[address] Pacheco's resident note as written. I actively participated in the decision-making process. Please see the resident's note for additional details. Pt reports mild improvement in epigastric pain, n/v, and swelling. Her crea improved 2.7 -& gt; 2.2 with diuresis. Further work up for nephritic/nephrotic process pending with plan for possible kidney biopsy next week. Have increased IV ppi to BID given persistent symptoms likely 2/2 gastritis and duodenal ulcers. Will continue active diuresis. Sergo White MD - 11/07/2019 12:06 PM CSTIM Handoff Form Admitting Resident: Dr. Smith Current Resident: Dr. White Team Assignment: Mary Kate Jett HPI: Mercedes Pandey is a 39 year old female with PMH of HTN, DM and CKD 3 who presented with month long history of nausea, vomiting and anasarca. Labs remarkable for nephrotic range proteinuria and hematuria concerning for nephritic/nephrotic syndrome. Also concern that nausea and vomiting may be due to gastroparesis. Significant Lab/EKG/Radiology Abnormalities: Protein/creatinine 6.2 Pending Labs/Radiology/Heart Studies: 24 hour protein collection GABRIELLE ANCA Diff consult Pending Consults: Nephrology Sergo White MD Internal Medicine PGY-3 Pager #[phone] documented in this encounter Plan of Treatment Name Type Priority Associated Diagnoses Date/Time ANTI-NUCLEAR LAB Routine 11/07/2019 4:47 AM ANTIBODY-PATHOLOGIST COLLECTIONS ASSISTANT INTERPRETATION Name Type Priority Associated Diagnoses Order Schedule Lactic Acid Whole Blood LAB Routine Vomiting, intractability STAT for 1 Occurrences of vomiting not starting 11/06/2019 specified, presence of nausea not specified, unspecified vomiting type BASIC METABOLIC PANEL LAB Routine EVERY MORNING AT 0400 (NA, K, CL, CO2, GLUCOSE, for 11 Occurrences BUN, CREATININE, CA) starting 11/08/2019 until 11/18/2019, 5 completed PROFILE / HEMOGRAM LAB Routine EVERY MORNING AT 0400 for 11 Days starting 11/08/2019 until 11/18/2019 CREATININE, URINE RANDOM LAB Routine ONCE for 1 Occurrences starting 11/07/2019 until 11/07/2019 CBC WITH DIFF LAB Routine EVERY 24 HOURS (START TIME ADJUSTABLE) until discontinued starting 11/08/2019, 5 completed MAGNESIUM LAB Routine EVERY 24 HOURS (START TIME ADJUSTABLE) until discontinued starting 11/08/2019, 5 completed ANTI-NUCLEAR LAB Routine ONCE for 1 Occurrences ANTIBODY-PATHOLOGIST starting 11/09/2019 INTERPRETATION until 11/09/2019 Health Maintenance Due Date Last Done Comments VARICELLA VACCINES (1 of 2 - 1982 2-dose childhood series) PNEUMOCOCCAL 0-64 YEARS COMBINED 1987 SERIES (1 of 1 - PPSV23) EYE EXAM 1991 URINE MICROALBUMIN 1991 DTaP,Tdap,and Td Vaccines (1 - 01/28/1992 05/07/2009 Tdap) FOOT EXAM 1999 PAP SMEAR 05/07/2016 05/07/2013, 05/06/2012, 03/08/2011, Additional history exists INFLUENZA VACCINE (#1) 2019 HgA1C 05/07/2020 11/07/2019 LDL-C 11/07/2020 11/07/2019 CREATININE (SERUM) 11/11/2020 11/11/2019, 11/10/2019, 11/09/2019, Additional history exists documented as of this encounter Procedures Procedure Name Priority Date/Time Associated Diagnosis Comments POCT GLUCOSE Routine 11/12/2019 12:04 Results for (AUTOMATED) PM COLLECTIONS ASSISTANT this procedure are in the results section. POCT GLUCOSE Routine 11/12/2019 8:19 Results for (AUTOMATED) AM COLLECTIONS ASSISTANT this procedure are in the results section. CBC WITH DIFFERENTIAL Routine 11/12/2019 3:36 Results for AM COLLECTIONS ASSISTANT this procedure are in the results section. CBC WITH DIFFERENTIAL Routine 11/12/2019 3:36 Results for AM COLLECTIONS ASSISTANT this procedure are in the results section. BASIC METABOLIC PANEL Routine 11/12/2019 3:36 Results for (NA, K, CL, CO2, AM COLLECTIONS ASSISTANT this procedure GLUCOSE, BUN, are in the CREATININE, CA) results section. MAGNESIUM Routine 11/12/2019 3:36 Results for AM COLLECTIONS ASSISTANT this procedure are in the results section. POCT GLUCOSE Routine 11/11/2019 8:09 Results for (AUTOMATED) PM COLLECTIONS ASSISTANT this procedure are in the results section. POCT GLUCOSE Routine 11/11/2019 5:13 Results for (AUTOMATED) PM COLLECTIONS ASSISTANT this procedure are in the results section. POCT GLUCOSE Routine 11/11/2019 12:02 Results for (AUTOMATED) PM COLLECTIONS ASSISTANT this procedure are in the results section. POCT GLUCOSE Routine 11/11/2019 8:42 Results for (AUTOMATED) AM COLLECTIONS ASSISTANT this procedure are in the results section. CBC WITH DIFFERENTIAL Routine 11/11/2019 3:02 Results for AM COLLECTIONS ASSISTANT this procedure are in the results section. CBC WITH DIFFERENTIAL Routine 11/11/2019 3:02 Results for AM COLLECTIONS ASSISTANT this procedure are in the results section. BASIC METABOLIC PANEL Routine 11/11/2019 3:02 Results for (NA, K, CL, CO2, AM COLLECTIONS ASSISTANT this procedure GLUCOSE, BUN, are in the CREATININE, CA) results section. MAGNESIUM Routine 11/11/2019 3:02 Results for AM COLLECTIONS ASSISTANT this procedure are in the results section. POCT GLUCOSE Routine 11/10/2019 8:32 Results for (AUTOMATED) PM COLLECTIONS ASSISTANT this procedure are in the results section. POCT GLUCOSE Routine 11/10/2019 5:02 Results for (AUTOMATED) PM COLLECTIONS ASSISTANT this procedure are in the results section. POCT GLUCOSE Routine 11/10/2019 12:34 Results for (AUTOMATED) PM COLLECTIONS ASSISTANT this procedure are in the results section. XR KUB Routine 11/10/2019 11:45 Intractable vomiting Results for AM COLLECTIONS ASSISTANT with nausea, this procedure unspecified vomiting are in the type results section. CT HEAD WO CONTRAST STAT 11/10/2019 10:23 Vomiting, Results for AM COLLECTIONS ASSISTANT intractability of this procedure vomiting not are in the specified, presence results of nausea not section. specified, unspecified vomiting type POCT GLUCOSE Routine 11/10/2019 8:22 Results for (AUTOMATED) AM COLLECTIONS ASSISTANT this procedure are in the results section. CBC WITH DIFFERENTIAL Routine 11/10/2019 4:17 Results for AM COLLECTIONS ASSISTANT this procedure are in the results section. PROTHROMBIN TIME / INR Routine 11/10/2019 4:17 Results for AM COLLECTIONS ASSISTANT this procedure are in the results section. CBC WITH DIFFERENTIAL Routine 11/10/2019 4:17 Results for AM COLLECTIONS ASSISTANT this procedure are in the results section. BASIC METABOLIC PANEL Routine 11/10/2019 4:17 Results for (NA, K, CL, CO2, AM COLLECTIONS ASSISTANT this procedure GLUCOSE, BUN, are in the CREATININE, CA) results section. MAGNESIUM Routine 11/10/2019 4:17 Results for AM COLLECTIONS ASSISTANT this procedure are in the results section. POCT GLUCOSE Routine 11/09/2019 9:09 Results for (AUTOMATED) PM COLLECTIONS ASSISTANT this procedure are in the results section. POCT GLUCOSE Routine 11/09/2019 5:29 Results for (AUTOMATED) PM COLLECTIONS ASSISTANT this procedure are in the results section. POCT GLUCOSE Routine 11/09/2019 1:16 Results for (AUTOMATED) PM COLLECTIONS ASSISTANT this procedure are in the results section. ECHO ROUTINE W/DOPPLER Routine 11/09/2019 9:45 Generalized edema COLOR AM COLLECTIONS ASSISTANT POCT GLUCOSE Routine 11/09/2019 8:27 Results for (AUTOMATED) AM COLLECTIONS ASSISTANT this procedure are in the results section. CBC WITH DIFFERENTIAL Routine 11/09/2019 5:02 Results for AM COLLECTIONS ASSISTANT this procedure are in the results section. PROTHROMBIN TIME / INR Routine 11/09/2019 5:02 Results for AM COLLECTIONS ASSISTANT this procedure are in the results section. CBC WITH DIFFERENTIAL Routine 11/09/2019 5:02 Results for AM COLLECTIONS ASSISTANT this procedure are in the results section. BASIC METABOLIC PANEL Routine 11/09/2019 5:02 Results for (NA, K, CL, CO2, AM COLLECTIONS ASSISTANT this procedure GLUCOSE, BUN, are in the CREATININE, CA) results section. MAGNESIUM Routine 11/09/2019 5:02 Results for AM COLLECTIONS ASSISTANT this procedure are in the results section. POCT GLUCOSE Routine 11/08/2019 8:58 Results for (AUTOMATED) PM COLLECTIONS ASSISTANT this procedure are in the results section. POCT GLUCOSE Routine 11/08/2019 4:55 Results for (AUTOMATED) PM COLLECTIONS ASSISTANT this procedure are in the results section. PROTEIN QUANT U/24H Routine 11/08/2019 4:45 Results for PM COLLECTIONS ASSISTANT this procedure are in the results section. POCT GLUCOSE Routine 11/08/2019 12:33 Results for (AUTOMATED) PM COLLECTIONS ASSISTANT this procedure are in the results section. POCT GLUCOSE Routine 11/08/2019 7:41 Results for (AUTOMATED) AM COLLECTIONS ASSISTANT this procedure are in the results section. CBC WITH DIFFERENTIAL Routine 11/08/2019 4:17 Results for AM COLLECTIONS ASSISTANT this procedure are in the results section. PROTHROMBIN TIME / INR Routine 11/08/2019 4:17 Results for AM COLLECTIONS ASSISTANT this procedure are in the results section. CBC WITH DIFFERENTIAL Routine 11/08/2019 4:17 Results for AM COLLECTIONS ASSISTANT this procedure are in the results section. BASIC METABOLIC PANEL Routine 11/08/2019 4:17 Results for (NA, K, CL, CO2, AM COLLECTIONS ASSISTANT this procedure GLUCOSE, BUN, are in the CREATININE, CA) results section. MAGNESIUM Routine 11/08/2019 4:17 Results for AM COLLECTIONS ASSISTANT this procedure are in the results section. POCT GLUCOSE Routine 11/07/2019 8:25 Results for (AUTOMATED) PM COLLECTIONS ASSISTANT this procedure are in the results section. POCT GLUCOSE Routine 11/07/2019 4:50 Results for (AUTOMATED) PM COLLECTIONS ASSISTANT this procedure are in the results section. POCT GLUCOSE Routine 11/07/2019 12:14 Results for (AUTOMATED) PM COLLECTIONS ASSISTANT this procedure are in the results section. POCT GLUCOSE Routine 11/07/2019 8:41 Results for (AUTOMATED) AM COLLECTIONS ASSISTANT this procedure are in the results section. US RETROPERITONEAL STAT 11/07/2019 5:19 Vomiting, Results for COMPLETE AM COLLECTIONS ASSISTANT intractability of this procedure vomiting not are in the specified, presence results of nausea not section. specified, unspecified vomiting type ANTI-NUCLEAR ANTIBODY Routine 11/07/2019 4:47 Results for SCREEN AM COLLECTIONS ASSISTANT this procedure are in the results section. INTACT PTH CALCIUM Routine 11/07/2019 4:47 Results for GROUP AM COLLECTIONS ASSISTANT this procedure are in the results section. C4 COMPLEMENT Add-on 11/07/2019 4:47 Results for AM COLLECTIONS ASSISTANT this procedure are in the results section. C3 COMPLEMENT Add-on 11/07/2019 4:47 Results for AM COLLECTIONS ASSISTANT this procedure are in the results section. NEUTROPHIL CYTOPLASMIC Routine 11/07/2019 4:46 Results for AB, IGG AM COLLECTIONS ASSISTANT this procedure are in the results section. XR CHEST 1 VW STAT 11/07/2019 1:22 Generalized edema Results for AM COLLECTIONS ASSISTANT this procedure are in the results section. CT ABDOMEN PELVIS WO STAT 11/07/2019 1:00 Generalized edema Results for CONTRAST AM COLLECTIONS ASSISTANT this procedure are in the results section. PROTEIN CREAT RATIO STAT 11/07/2019 12:24 Generalized edema Results for URINE RANDOM AM COLLECTIONS ASSISTANT this procedure are in the results section. CHLORIDE, URINE RANDOM Add-on 11/07/2019 12:24 Results for AM COLLECTIONS ASSISTANT this procedure are in the results section. SODIUM, URINE RANDOM Add-on 11/07/2019 12:24 Results for AM COLLECTIONS ASSISTANT this procedure are in the results section. POTASSIUM, URINE Add-on 11/07/2019 12:24 Results for RANDOM AM COLLECTIONS ASSISTANT this procedure are in the results section. UREA NITROGEN, URINE Add-on 11/07/2019 12:24 Results for RANDOM AM COLLECTIONS ASSISTANT this procedure are in the results section. URINALYSIS STAT 11/07/2019 12:24 Vomiting, Results for AM COLLECTIONS ASSISTANT intractability of this procedure vomiting not are in the specified, presence results of nausea not section. specified, unspecified vomiting type ACTIVATED PARTIAL STAT 11/07/2019 12:24 Vomiting, Results for THRMPLAS [place] AM COLLECTIONS ASSISTANT intractability of this procedure vomiting not are in the specified, presence results of nausea not section. specified, unspecified vomiting type PROTHROMBIN TIME / INR STAT 11/07/2019 12:24 Vomiting, Results for AM COLLECTIONS ASSISTANT intractability of this procedure vomiting not are in the specified, presence results of nausea not section. specified, unspecified vomiting type GALV/CLC ONLY - URINE Add-on 11/07/2019 12:24 Results for DRUG (IMMUNOASSAY) - AM COLLECTIONS ASSISTANT this procedure COMPREHENSIVE DRUG are in the SCREEN results section. EKG-12 LEAD Routine 11/07/2019 12:11 AM COLLECTIONS ASSISTANT HB ABO GROUPING STAT 11/07/2019 12:08 Vomiting, Results for AM COLLECTIONS ASSISTANT intractability of this procedure vomiting not are in the specified, presence results of nausea not section. specified, unspecified vomiting type HIV 1/2 AG-AB WITH Add-on 11/07/2019 12:05 Results for REFLEX AM COLLECTIONS ASSISTANT this procedure are in the results section. CBC WITH DIFFERENTIAL STAT 11/07/2019 12:05 Vomiting, Results for AM COLLECTIONS ASSISTANT intractability of this procedure vomiting not are in the specified, presence results of nausea not section. specified, unspecified vomiting type DIFF CONSULT Add-on 11/07/2019 12:05 Results for INTERPRETATION AM COLLECTIONS ASSISTANT this procedure are in the results section. LACTIC ACID WHOLE STAT 11/07/2019 12:05 Vomiting, Results for BLOOD AM COLLECTIONS ASSISTANT intractability of this procedure vomiting not are in the specified, presence results of nausea not section. specified, unspecified vomiting type N-TERMINAL PRO-BNP STAT Add-On 11/07/2019 12:05 Generalized edema Results for AM COLLECTIONS ASSISTANT this procedure are in the results section. HBC ANTIBODY (IGM & Add-on 11/07/2019 12:05 Results for IGG) AM COLLECTIONS ASSISTANT this procedure are in the results section. HCV ANTIBODY Add-on 11/07/2019 12:05 Results for AM COLLECTIONS ASSISTANT this procedure are in the results section. HEPATITIS B SURFACE Add-on 11/07/2019 12:05 Results for ANTIGEN AM COLLECTIONS ASSISTANT this procedure are in the results section. HEPATITIS B SURFACE Add-on 11/07/2019 12:05 Results for ANTIBODY AM COLLECTIONS ASSISTANT this procedure are in the results section. GLYCOSYLATED Add-on 11/07/2019 12:05 Results for HEMOGLOBIN (A1C) AM COLLECTIONS ASSISTANT this procedure are in the results section. CBC WITH DIFFERENTIAL Routine 11/07/2019 12:05 Vomiting, Results for AM COLLECTIONS ASSISTANT intractability of this procedure vomiting not are in the specified, presence results of nausea not section. specified, unspecified vomiting type DIFF CONSULT Routine 11/07/2019 12:05 Results for INTERPRETATION AM COLLECTIONS ASSISTANT this procedure are in the results section. IRON PANEL Add-on 11/07/2019 12:05 Results for AM COLLECTIONS ASSISTANT this procedure are in the results section. LIPID PANEL Add-on 11/07/2019 12:05 Results for (02502)(TOTAL AM COLLECTIONS ASSISTANT this procedure CHOLESTEROL, are in the TRIGLYCERIDES, HDL) results section. COMP. METABOLIC PANEL STAT 11/07/2019 12:05 Vomiting, Results for (30665) AM COLLECTIONS ASSISTANT intractability of this procedure vomiting not are in the specified, presence results of nausea not section. specified, unspecified vomiting type TROPONIN I STAT 11/07/2019 12:05 Vomiting, Results for AM COLLECTIONS ASSISTANT intractability of this procedure vomiting not are in the specified, presence results of nausea not section. specified, unspecified vomiting type TEST, SERUM STAT 11/07/2019 12:05 Vomiting, Results for AM COLLECTIONS ASSISTANT intractability of this procedure vomiting not are in the specified, presence results of nausea not section. specified, unspecified vomiting type FERRITIN SERUM Add-on 11/07/2019 12:05 Results for AM COLLECTIONS ASSISTANT this procedure are in the results section. MAGNESIUM Add-on 11/07/2019 12:05 Results for AM COLLECTIONS ASSISTANT this procedure are in the results section. LIPASE STAT 11/07/2019 12:05 Vomiting, Results for AM COLLECTIONS ASSISTANT intractability of this procedure vomiting not are in the specified, presence results of nausea not section. specified, unspecified vomiting type URIC ACID Add-on 11/07/2019 12:05 Results for AM COLLECTIONS ASSISTANT this procedure are in the results section. CREATINE KINASE Add-on 11/07/2019 12:05 Results for AM COLLECTIONS ASSISTANT this procedure are in the results section. PHOSPHORUS Add-on 11/07/2019 12:05 Results for AM COLLECTIONS ASSISTANT this procedure are in the results section. EKG-12 LEAD ELIJAH 11/06/2019 11:55 PM COLLECTIONS ASSISTANT EKG-12 LEAD STAT 11/06/2019 11:50 PM COLLECTIONS ASSISTANT documented in this encounter Results POCT GLUCOSE (AUTOMATED) (11/12/2019 12:04 PM COLLECTIONS ASSISTANT) POCT GLU 136 (H) 70 - 110 mg/dL [facility] Specimen Blood Performing Organization Address City/[facility]/Zipcode Phone Number [facility] CLIA: [id number], [address] [place], [place] [address] [phone] [facility] POCT GLUCOSE (AUTOMATED) (11/12/2019 8:19 AM COLLECTIONS ASSISTANT) POCT GLU 139 (H) 70 - 110 mg/dL [facility] Specimen Blood Performing Organization Address City/[facility] Phone Number [facility] CLIA: [id number], [address] [place] [phone] [facility] CBC WITH DIFFERENTIAL (11/12/2019 3:36 AM COLLECTIONS ASSISTANT) WBC 6.24 4.30 - 11.10 [facility] 10*3/L SERVICES RBC 2.85 (L) 3.93 - 5.25 [facility] 10*6/L SERVICES HGB 8.3 (L) 11.6 - 15.0 [facility] g/dL SERVICES HCT 25.6 (L) 35.7 - 45.2 % [facility] SERVICES MCV 89.8 80.6 - 95.5 fL [facility] MCH 29.1 25.9 - 32.8 pg [facility] MCHC 32.4 31.6 - 35.1 [facility] g/dL SERVICES RDW-SD 42.5 39.0 - 49.9 fL [facility] RDW-CV 12.9 12.0 - 15.5 % [facility] PLT 178 166 - 358 [facility] 10*3/L SERVICES MPV 11.4 9.5 - 12.9 fL [facility] SERVICES NRBC/100 WBC 0.0 0.0 - 10.0 /100 [facility] WBCs SERVICES NRBC x10^3 <0.01 10*3/L [facility] GRAN MAT (NEUT) % 67.7 % [facility] IMM GRAN % 0.20 % [facility] LYMPH % 17.0 % [facility] MONO % 10.9 % [facility] EOS % 3.7 % [facility] BASO % 0.5 % [facility] GRAN MAT x10^3(ANC) 4.23 1.88 - 7.09 [facility] 10*3/uL SERVICES IMM GRAN x10^3 <0.03 0.00 - 0.06 [facility] 10*3/uL SERVICES LYMPH x10^3 1.06 (L) 1.32 - 3.29 [facility] 10*3/uL SERVICES MONO x10^3 0.68 0.33 - 0.92 [facility] 10*3/uL SERVICES EOS x10^3 0.23 0.03 - 0.39 [facility] 10*3/uL SERVICES BASO x10^3 0.03 0.01 - 0.07 [facility] 10*3/uL SERVICES Specimen Blood - ARM, LEFT Performing Organization Address City/[facility]/Zipcode Phone Number [facility] CLIA: [id number], [address] [place], [place] [address] [phone] [facility] MAGNESIUM (11/12/2019 3:36 AM COLLECTIONS ASSISTANT) MAGNESIUM 2.5 (H) 1.7 - 2.4 mg/dL [facility] Specimen Blood - ARM, LEFT Performing Organization Address [facility] Phone Number [facility] CLIA: [id number], [address] [place] [phone] [facility] BASIC METABOLIC PANEL (NA, K, CL, CO2, GLUCOSE, BUN, CREATININE, CA) (2019 3:36 AM COLLECTIONS ASSISTANT) NA 133 (L) 135 - 145 [facility] mmol/L SERVICES K 3.8 3.5 - 5.0 [facility] mmol/L SERVICES CL 98 98 - 108 mmol/L [facility] SERVICES CO2 TOTAL 28 23 - 31 mmol/L [facility] AGAP 7 2 - 16 [facility] BUN 18 7 - 23 mg/dL [facility] GLUCOSE 111 (H) 70 - 110 mg/dL [facility] CREATININE 2.11 (H) 0.50 - 1.04 [facility] mg/dL SERVICES CALCIUM 7.7 (L) 8.6 - 10.6 [facility] mg/dL SERVICES eGFR Calculation 26.2 mL/min/1.73m2 [facility] (Non- SERVICES Green[place]ic) eGFR Calculation 31.8 mL/min/1.73m2 [facility] () SERVICES Specimen Blood - ARM, LEFT Narrative Performed At Association of Glomerular Filtration Rate (GFR) and Staging [facility] of Kidney Disease* + + + + | GFR (mL/min/1.73 m2) | With Kidney Damage | Without Kidney Damage + + + + | >90 | Stage one | Normal + + + + | 60-89 | Stage two | Decreased GFR + + + + | 30-59 | Stage three | Stage three + + + + | 15-29 | Stage four | Stage four + + + + | <15 (or dialysis) | Stage five | Stage five + + + + *Each stage assumes the associated GFR level has been in effect for at least three months. Stages 1 to 5, with or without kidney disease, indicate chronic kidney disease. Notes: Determination of stages one and two (with eGFR >59mL/min/1.73 m2) requires estimation of kidney damage for at least three months as defined by structural or functional abnormalities of the kidney, manifested by either: Pathological abnormalities or Markers of kidney damage (including abnormalities in the composition of the blood or urine or abnormalities in imaging tests). Performing Organization Address City/State/Zipcode Phone Number [facility] CLIA: [id number], [address] [place] [address] [facility] POCT GLUCOSE (AUTOMATED) (11/11/2019 8:09 PM COLLECTIONS ASSISTANT) [facility] POCT GLU 168 (H) 70 - 110 mg/dL [facility] Specimen Blood Performing Organization Address [facility] Phone Number [facility] CLIA: [id number], [address] [place] [phone] [employer] POCT GLUCOSE (AUTOMATED) (11/11/2019 5:13 PM COLLECTIONS ASSISTANT) POCT GLU 306 (H) 70 - 110 mg/dL [facility] Specimen Blood Performing Organization Address City/[facility] Phone Number [facility] CLIA: [id number], [address] [place] [address] [phone] [employer] POCT GLUCOSE (AUTOMATED) (11/11/2019 12:02 PM COLLECTIONS ASSISTANT) POCT GLU 105 70 - 110 mg/dL [facility] Specimen Blood Performing Organization Address [facility] Phone Number [facility] CLIA: [id number], [address] [place] [address] [phone] [facility] POCT GLUCOSE (AUTOMATED) (11/11/2019 8:42 AM COLLECTIONS ASSISTANT) POCT GLU 137 (H) 70 - 110 mg/dL [facility] Specimen Blood Performing Organization Address [facility] Phone Number [facility] CLIA: [id number], [address] [place] [address] [phone] [facility] CBC WITH DIFFERENTIAL (11/11/2019 3:02 AM COLLECTIONS ASSISTANT) WBC 6.62 4.30 - 11.10 [facility] 10*3/L SERVICES RBC 3.05 (L) 3.93 - 5.25 [facility] 10*6/L SERVICES HGB 8.9 (L) 11.6 - 15.0 [facility] g/dL SERVICES HCT 26.8 (L) 35.7 - 45.2 % [facility] SERVICES MCV 87.9 80.6 - 95.5 fL [facility] MCH 29.2 25.9 - 32.8 pg [facility] MCHC 33.2 31.6 - 35.1 [facility] g/dL SERVICES RDW-SD 41.8 39.0 - 49.9 fL [facility] SERVICES RDW-CV 13.0 12.0 - 15.5 % [facility] SERVICES PLT 200 166 - 358 [facility] 10*3/L SERVICES MPV 11.8 9.5 - 12.9 fL [facility] SERVICES NRBC/100 WBC 0.0 0.0 - 10.0 /100 [facility] WBCs SERVICES NRBC x10^3 <0.01 10*3/L [facility] SERVICES GRAN MAT (NEUT) % 64.4 % [facility] IMM GRAN % 0.30 % [facility] LYMPH % 19.9 % [facility] MONO % 11.0 % [facility] EOS % 3.9 % [facility] BASO % 0.5 % [facility] SERVICES GRAN MAT x10^3(ANC) 4.26 1.88 - 7.09 [facility] 10*3/uL SERVICES IMM GRAN x10^3 <0.03 0.00 - 0.06 [facility] 10*3/uL SERVICES LYMPH x10^3 1.32 1.32 - 3.29 [facility] 10*3/uL SERVICES MONO x10^3 0.73 0.33 - 0.92 [facility] 10*3/uL SERVICES EOS x10^3 0.26 0.03 - 0.39 [facility] 10*3/uL SERVICES BASO x10^3 0.03 0.01 - 0.07 [facility] 10*3/uL SERVICES Specimen Blood - ARM, LEFT Performing Organization Address [facility] Phone Number [facility] CLIA: [id number], [address] [place] [address] [facility] MAGNESIUM (11/11/2019 3:02 AM COLLECTIONS ASSISTANT) MAGNESIUM 1.6 (L) 1.7 - 2.4 mg/dL [facility] Specimen Blood - ARM, LEFT Performing Organization Address [facility] Phone Number [facility] CLIA: [id number], [address] [place] [address] [facility] BASIC METABOLIC PANEL (NA, K, CL, CO2, GLUCOSE, BUN, CREATININE, CA) (2019 3:02 AM COLLECTIONS ASSISTANT) NA 135 135 - 145 [facility] mmol/L SERVICES K 3.4 (L) 3.5 - 5.0 [facility] mmol/L SERVICES CL 98 98 - 108 mmol/L [facility] CO2 TOTAL 29 23 - 31 mmol/L [facility] AGAP 8 2 - 16 [facility] BUN 17 7 - 23 mg/dL [facility] GLUCOSE 138 (H) 70 - 110 mg/dL [facility] CREATININE 2.25 (H) 0.50 - 1.04 [facility] mg/dL SERVICES CALCIUM 8.0 (L) 8.6 - 10.6 [facility] mg/dL SERVICES eGFR Calculation 24.3 mL/min/1.73m2 [facility] (Non- SERVICES [place]ic) eGFR Calculation 29.5 mL/min/1.73m2 [facility] () SERVICES Specimen Blood - ARM, LEFT Narrative Performed At Association of Glomerular Filtration Rate (GFR) and Staging [facility] of Kidney Disease* + + + + | GFR (mL/min/1.73 m2) | With Kidney Damage | Without Kidney Damage + + + + | >90 | Stage one | Normal + + + + | 60-89 | Stage two | Decreased GFR + + + + | 30-59 | Stage three | Stage three + + + + | 15-29 | Stage four | Stage four + + + + | <15 (or dialysis) | Stage five | Stage five + + + + *Each stage assumes the associated GFR level has been in effect for at least three months. Stages 1 to 5, with or without kidney disease, indicate chronic kidney disease. Notes: Determination of stages one and two (with eGFR >59mL/min/1.73 m2) requires estimation of kidney damage for at least three months as defined by structural or functional abnormalities of the kidney, manifested by either: Pathological abnormalities or Markers of kidney damage (including abnormalities in the composition of the blood or urine or abnormalities in imaging tests). Performing Organization Address City/State/Zipcode Phone Number [facility] CLIA: [id number], [address] [place], [place] [address] [phone] [facility] POCT GLUCOSE (AUTOMATED) (11/10/2019 8:32 PM COLLECTIONS ASSISTANT) [facility] POCT GLU 179 (H) 70 - 110 mg/dL [facility] Specimen Blood Performing Organization Address [facility] Phone Number [facility] CLIA: [id number], [address] [place] [address] 88971 [phone] [facility] POCT GLUCOSE (AUTOMATED) (11/10/2019 5:02 PM COLLECTIONS ASSISTANT) POCT GLU 194 (H) 70 - 110 mg/dL [facility] Specimen Blood Performing Organization Address City/[facility] Phone Number [facility] CLIA: [id number], [address] [place] [address] [phone] [facility] POCT GLUCOSE (AUTOMATED) (11/10/2019 12:34 PM COLLECTIONS ASSISTANT) POCT GLU 166 (H) 70 - 110 mg/dL [facility] Specimen Blood Performing Organization Address [facility] Phone Number [facility] CLIA: [id number], [address] [place] [phone] [facility] XR KUB (11/10/2019 11:45 AM COLLECTIONS ASSISTANT) Specimen Impressions Performed At PACS/VR/DOSE No radiographic evidence of acute abdominopelvic abnormality. Preliminary Report Dictated by Resident: Melissa Sanchez I, Walter Gómez MD., have reviewed this study and agree with the above report. Narrative Performed At EXAM: XR KUB PACS/VR/DOSE COMPARISON: None available. HISTORY: Abdominal pain TECHNIQUE: Two AP radiographs of the abdomen were obtained. FINDINGS: The bowel gas pattern is nonobstructive and without localizing findings. No abnormal calcifications or radiopaque stones are identified. Cholecystectomy clips overlie the right upper quadrant of the abdomen. No acute osseous abnormality detected. Procedure Note [facility], Radiant Results Inft User - 11/10/2019 3:32 PM COLLECTIONS ASSISTANT EXAM: XR KUB COMPARISON: None available. HISTORY: Abdominal pain TECHNIQUE: Two AP radiographs of the abdomen were obtained. FINDINGS: The bowel gas pattern is nonobstructive and without localizing findings. No abnormal calcifications or radiopaque stones are identified. Cholecystectomy clips overlie the right upper quadrant of the abdomen. No acute osseous abnormality detected. IMPRESSION No radiographic evidence of acute abdominopelvic abnormality. Preliminary Report Dictated by Resident: Walter Aguilar MD., have reviewed this study and agree with the above report. Performing Organization Address City/State/Zipcode Phone Number PACS/VR/DOSE CT HEAD WO CONTRAST (11/10/2019 10:23 AM COLLECTIONS ASSISTANT) Specimen Impressions Performed At Impression: PACS/VR/DOSE No acute intracranial abnormality. Preliminary Report Dictated by Resident: Meghann Heard MD., have reviewed this study and agree with the above report. Narrative Performed At Exam: CT HEAD WO CONTRAST PACS/VR/DOSE Clinical History: Dizziness, non-specific fall, hit head Technique:CT head was obtained without intravenous contrast Comparison: None Findings: The ventricles and the cerebral sulci are normal in caliber and configuration. No hydrocephalus or pathological extra-axial collection noted. Basal cisterns are unremarkable. No midline shift or brain herniation noted. No intraparenchymal hemorrhage is noted. Valenzuela-white matter differentiation is maintained. The calvarium and the skull base are intact. No evidence of fracture noted. Scar tissue is noted in the left parietal scalp. Bilateral mastoid air cells and paranasal sinuses are clear. Procedure Note [facility], Radiant Results Inft User - 11/10/2019 12:39 PM COLLECTIONS ASSISTANT Exam: CT HEAD WO CONTRAST Clinical History: Dizziness, non-specific fall, hit head Technique:CT head was obtained without intravenous contrast Comparison: None Findings: The ventricles and the cerebral sulci are normal in caliber and configuration. No hydrocephalus or pathological extra-axial collection noted. Basal cisterns are unremarkable. No midline shift or brain herniation noted. No intraparenchymal hemorrhage is noted. Valenzuela-white matter differentiation is maintained. The calvarium and the skull base are intact. No evidence of fracture noted. Scar tissue is noted in the left parietal scalp. Bilateral mastoid air cells and paranasal sinuses are clear. IMPRESSION Impression: No acute intracranial abnormality. Preliminary Report Dictated by Resident: Meghann Heard MD., have reviewed this study and agree with the above report. Performing Organization Address City/State/Zipcode Phone Number PACS/VR/DOSE POCT GLUCOSE (AUTOMATED) (11/10/2019 8:22 AM COLLECTIONS ASSISTANT) POCT GLU 130 (H) 70 - 110 mg/dL [facility] Specimen Blood Performing Organization Address City/State/Zipcode Phone Number [facility] CLIA: [id number], [address] [place] [address] [facility] CBC WITH DIFFERENTIAL (11/10/2019 4:17 AM COLLECTIONS ASSISTANT) WBC 7.14 4.30 - 11.10 [facility] 10*3/L SERVICES RBC 3.13 (L) 3.93 - 5.25 [facility] 10*6/L SERVICES HGB 9.2 (L) 11.6 - 15.0 [facility] g/dL SERVICES HCT 28.0 (L) 35.7 - 45.2 % [facility] MCV 89.5 80.6 - 95.5 fL [facility] MCH 29.4 25.9 - 32.8 pg [facility] MCHC 32.9 31.6 - 35.1 [facility] g/dL SERVICES RDW-SD 42.1 39.0 - 49.9 fL [facility] SERVICES RDW-CV 13.0 12.0 - 15.5 % [facility] PLT 207 166 - 358 [facility] 10*3/L SERVICES MPV 11.6 9.5 - 12.9 fL [facility] SERVICES NRBC/100 WBC 0.0 0.0 - 10.0 /100 [facility] WBCs SERVICES NRBC x10^3 <0.01 10*3/L [facility] SERVICES GRAN MAT (NEUT) % 76.0 % [facility] IMM GRAN % 0.40 % [facility] LYMPH % 12.2 % [facility] MONO % 8.7 % [facility] EOS % 2.1 % [facility] BASO % 0.6 % [facility] GRAN MAT x10^3(ANC) 5.43 1.88 - 7.09 [facility] 10*3/uL SERVICES IMM GRAN x10^3 0.03 0.00 - 0.06 [facility] 10*3/uL SERVICES LYMPH x10^3 0.87 (L) 1.32 - 3.29 [facility] 10*3/uL SERVICES MONO x10^3 0.62 0.33 - 0.92 [facility] 10*3/uL SERVICES EOS x10^3 0.15 0.03 - 0.39 [facility] 10*3/uL SERVICES BASO x10^3 0.04 0.01 - 0.07 [facility] 10*3/uL SERVICES Specimen Blood - HAND, RIGHT Performing Organization Address [facility] Phone Number [facility] CLIA: [id number], [address] [place] [address] [phone] [facility] PROTHROMBIN TIME / INR (11/10/2019 4:17 AM COLLECTIONS ASSISTANT) PROTIME PATIENT 12.4 10.1 - 12.6 [facility] Seconds SERVICES INR 1.1Comment: Normal [facility] INR <1.1; Warfarin SERVICES Therapeutic range 2.0 to 3.0 or 2.5 to 3.5, depending upon the indications. Specimen Blood - HAND, RIGHT Performing Organization Address [facility] Phone Number [facility] CLIA: [id number], [address] [place] [address] [phone] [facility] MAGNESIUM (11/10/2019 4:17 AM COLLECTIONS ASSISTANT) Pathologist [facility] MAGNESIUM 1.7 1.7 - 2.4 mg/dL [facility] Specimen Blood - HAND, RIGHT Performing Organization Address [facility] Phone Number [facility] CLIA: [id number], [address] [place] [address] [phone] [facility] BASIC METABOLIC PANEL (NA, K, CL, CO2, GLUCOSE, BUN, CREATININE, CA) (2019 4:17 AM COLLECTIONS ASSISTANT) NA 136 135 - 145 [facility] mmol/L SERVICES K 3.6 3.5 - 5.0 [facility] mmol/L SERVICES CL 100 98 - 108 mmol/L [facility] CO2 TOTAL 21 (L) 23 - 31 mmol/L [facility] AGAP 15 2 - 16 [facility] BUN 14 7 - 23 mg/dL [facility] GLUCOSE 115 (H) 70 - 110 mg/dL [facility] CREATININE 2.19 (H) 0.50 - 1.04 [facility] mg/dL SERVICES CALCIUM 8.5 (L) 8.6 - 10.6 [facility] mg/dL SERVICES eGFR Calculation 25.1 mL/min/1.73m2 [facility] (Non- SERVICES Greenlandic) eGFR Calculation 30.4 mL/min/1.73m2 [facility] () SERVICES Specimen Blood - HAND, RIGHT Narrative Performed At Association of Glomerular Filtration Rate (GFR) and Staging [facility] of Kidney Disease* + + + + | GFR (mL/min/1.73 m2) | With Kidney Damage | Without Kidney Damage + + + + | >90 | Stage one | Normal + + + + | 60-89 | Stage two | Decreased GFR + + + + | 30-59 | Stage three | Stage three + + + + | 15-29 | Stage four | Stage four + + + + | <15 (or dialysis) | Stage five | Stage five + + + + *Each stage assumes the associated GFR level has been in effect for at least three months. Stages 1 to 5, with or without kidney disease, indicate chronic kidney disease. Notes: Determination of stages one and two (with eGFR >59mL/min/1.73 m2) requires estimation of kidney damage for at least three months as defined by structural or functional abnormalities of the kidney, manifested by either: Pathological abnormalities or Markers of kidney damage (including abnormalities in the composition of the blood or urine or abnormalities in imaging tests). Performing Organization Address City/[facility] Phone Number [facility] CLIA: [id number], [address] [place], [place] [address] [facility] POCT GLUCOSE (AUTOMATED) (11/09/2019 9:09 PM COLLECTIONS ASSISTANT) POCT GLU 113 (H) 70 - 110 mg/dL [facility] Specimen Blood Performing Organization Address City/[facility] Phone Number [facility] CLIA: [id number], [address] [place] [address] [facility] POCT GLUCOSE (AUTOMATED) (11/09/2019 5:29 PM COLLECTIONS ASSISTANT) POCT GLU 105 70 - 110 mg/dL [facility] Specimen Blood Performing Organization Address [facility] Phone Number [facility] CLIA: [id number], [address] [place] [address] [phone] [facility] POCT GLUCOSE (AUTOMATED) (11/09/2019 1:16 PM COLLECTIONS ASSISTANT) POCT GLU 104 70 - 110 mg/dL [facility] Specimen Blood Performing Organization Address City/[facility]/Zipcode Phone Number [facility] CLIA: [id number], [address] [place] [address] [facility] POCT GLUCOSE (AUTOMATED) (11/09/2019 8:27 AM COLLECTIONS ASSISTANT) POCT GLU 132 (H) 70 - 110 mg/dL [facility] Specimen Blood Performing Organization Address City/State/Zipcode Phone Number [facility] CLIA: [id number], [address] [place] [address] [facility] CBC WITH DIFFERENTIAL (11/09/2019 5:02 AM COLLECTIONS ASSISTANT) WBC 6.16 4.30 - 11.10 [facility] 10*3/L SERVICES RBC 3.01 (L) 3.93 - 5.25 [facility] 10*6/L SERVICES HGB 8.8 (L) 11.6 - 15.0 [facility] g/dL SERVICES HCT 27.0 (L) 35.7 - 45.2 % [facility] MCV 89.7 80.6 - 95.5 fL [facility] MCH 29.2 25.9 - 32.8 pg [facility] MCHC 32.6 31.6 - 35.1 [facility] g/dL SERVICES RDW-SD 42.9 39.0 - 49.9 fL [facility] RDW-CV 13.1 12.0 - 15.5 % [facility] PLT 186 166 - 358 [facility] 10*3/L SERVICES MPV 11.5 9.5 - 12.9 fL [facility] NRBC/100 WBC 0.0 0.0 - 10.0 /100 [facility] WBCs SERVICES NRBC x10^3 <0.01 10*3/L [facility] GRAN MAT (NEUT) % 74.0 % [facility] IMM GRAN % 0.30 % [facility] LYMPH % 12.8 % [facility] MONO % 10.2 % [facility] EOS % 2.4 % [facility] BASO % 0.3 % [facility] GRAN MAT x10^3(ANC) 4.55 1.88 - 7.09 [facility] 10*3/uL SERVICES IMM GRAN x10^3 <0.03 0.00 - 0.06 [facility] 10*3/uL SERVICES LYMPH x10^3 0.79 (L) 1.32 - 3.29 [facility] 10*3/uL SERVICES MONO x10^3 0.63 0.33 - 0.92 [facility] 10*3/uL SERVICES EOS x10^3 0.15 0.03 - 0.39 [facility] 10*3/uL SERVICES BASO x10^3 <0.03 0.01 - 0.07 [facility] 10*3/uL SERVICES Specimen Blood - VENOUS Performing Organization Address City/[facility] Phone Number [facility] CLIA: [id number], [address] [place] [address] [facility] PROTHROMBIN TIME / INR (11/09/2019 5:02 AM COLLECTIONS ASSISTANT) PROTIME PATIENT 12.6 10.1 - 12.6 [facility] Seconds SERVICES INR 1.1Comment: Normal [facility] INR <1.1; Warfarin SERVICES Therapeutic range 2.0 to 3.0 or 2.5 to 3.5, depending upon the indications. Specimen Blood - VENOUS Performing Organization Address [facility] Phone Number [facility] CLIA: [id number], [address] [place], [place] [id number] [phone] [facility] MAGNESIUM (11/09/2019 5:02 AM COLLECTIONS ASSISTANT) MAGNESIUM 1.9 1.7 - 2.4 mg/dL [facility] Specimen Blood - VENOUS Performing Organization Address [facility] Phone Number [facility] CLIA: [id number], [address] [place] [address] [facility] BASIC METABOLIC PANEL (NA, K, CL, CO2, GLUCOSE, BUN, CREATININE, CA) (2019 5:02 AM COLLECTIONS ASSISTANT) NA 136 135 - 145 [facility] mmol/L SERVICES K 3.9 3.5 - 5.0 [facility] mmol/L SERVICES CL 104 98 - 108 mmol/L [facility] CO2 TOTAL 20 (L) 23 - 31 mmol/L [facility] AGAP 12 2 - 16 [facility] BUN 14 7 - 23 mg/dL [facility] GLUCOSE 131 (H) 70 - 110 mg/dL [facility] CREATININE 2.13 (H) 0.50 - 1.04 [facility] mg/dL SERVICES CALCIUM 8.4 (L) 8.6 - 10.6 [facility] mg/dL SERVICES eGFR Calculation 25.9 mL/min/1.73m2 [facility] (Non- SERVICES [place]ic) eGFR Calculation 31.4 mL/min/1.73m2 [facility] () SERVICES Specimen Blood - VENOUS Narrative Performed At Association of Glomerular Filtration Rate (GFR) and Staging [facility] of Kidney Disease* + + + + | GFR (mL/min/1.73 m2) | With Kidney Damage | Without Kidney Damage + + + + | >90 | Stage one | Normal + + + + | 60-89 | Stage two | Decreased GFR + + + + | 30-59 | Stage three | Stage three + + + + | 15-29 | Stage four | Stage four + + + + | <15 (or dialysis) | Stage five | Stage five + + + + *Each stage assumes the associated GFR level has been in effect for at least three months. Stages 1 to 5, with or without kidney disease, indicate chronic kidney disease. Notes: Determination of stages one and two (with eGFR >59mL/min/1.73 m2) requires estimation of kidney damage for at least three months as defined by structural or functional abnormalities of the kidney, manifested by either: Pathological abnormalities or Markers of kidney damage (including abnormalities in the composition of the blood or urine or abnormalities in imaging tests). Performing Organization Address City/State/Zipcode Phone Number [facility] CLIA: [id number], [address] [place] [address]28 [phone] [facility] POCT GLUCOSE (AUTOMATED) (11/08/2019 8:58 PM COLLECTIONS ASSISTANT) [facility] POCT GLU 181 (H) 70 - 110 mg/dL [facility] Specimen Blood Performing Organization Address City/[facility]/Zipcode Phone Number [facility] CLIA: [id number], [address] [place] [address] [phone] [facility] POCT GLUCOSE (AUTOMATED) (11/08/2019 4:55 PM COLLECTIONS ASSISTANT) POCT GLU 197 (H) 70 - 110 mg/dL [facility] Specimen Blood Performing Organization Address [facility] Phone Number [facility] CLIA: [id number], [address] [place] [address] [phone] [facility] PROTEIN QUANT U/24H (11/08/2019 4:45 PM COLLECTIONS ASSISTANT) T. VOL U 3,100 mL [facility] HR COLLECT 24Comment: 1625 Hours [facility] T. PROT U 125 mg/dL [facility] PRO U/24HR 3,875 (H) <150 mg/24h [facility] Specimen Urine - URINE, CLEAN CATCH Performing Organization Address [facility] Phone Number [facility] CLIA: [id number], [address] [place] [address]37 [phone] [facility] POCT GLUCOSE (AUTOMATED) (11/08/2019 12:33 PM COLLECTIONS ASSISTANT) POCT GLU 164 (H) 70 - 110 mg/dL [facility] Specimen Blood Performing Organization Address [facility] Phone Number [facility] CLIA: [id number], [address] [place] [address] [facility] POCT GLUCOSE (AUTOMATED) (11/08/2019 7:41 AM COLLECTIONS ASSISTANT) POCT GLU 136 (H) 70 - 110 mg/dL [facility] Specimen Blood Performing Organization Address [facility] Phone Number [facility] CLIA: [id number], [address] [place] [address] [facility] CBC WITH DIFFERENTIAL (11/08/2019 4:17 AM COLLECTIONS ASSISTANT) WBC 6.85 4.30 - 11.10 [facility] 10*3/L SERVICES RBC 2.95 (L) 3.93 - 5.25 [facility] 10*6/L SERVICES HGB 8.5 (L) 11.6 - 15.0 [facility] g/dL SERVICES HCT 26.1 (L) 35.7 - 45.2 % [facility] MCV 88.5 80.6 - 95.5 fL [facility] MCH 28.8 25.9 - 32.8 pg [facility] MCHC 32.6 31.6 - 35.1 [facility] g/dL SERVICES RDW-SD 42.2 39.0 - 49.9 fL [facility] RDW-CV 12.9 12.0 - 15.5 % [facility] PLT 170 166 - 358 [facility] 10*3/L SERVICES MPV 11.8 9.5 - 12.9 fL [facility] NRBC/100 WBC 0.0 0.0 - 10.0 /100 [facility] WBCs SERVICES NRBC x10^3 <0.01 10*3/L [facility] GRAN MAT (NEUT) % 71.5 % [facility] IMM GRAN % 0.30 % [facility] LYMPH % 16.4 % [facility] MONO % 9.2 % [facility] EOS % 2.2 % [facility] BASO % 0.4 % [facility] GRAN MAT x10^3(ANC) 4.90 1.88 - 7.09 [facility] 10*3/uL SERVICES IMM GRAN x10^3 <0.03 0.00 - 0.06 [facility] 10*3/uL SERVICES LYMPH x10^3 1.12 (L) 1.32 - 3.29 [facility] 10*3/uL SERVICES MONO x10^3 0.63 0.33 - 0.92 [facility] 10*3/uL SERVICES EOS x10^3 0.15 0.03 - 0.39 [facility] 10*3/uL SERVICES BASO x10^3 0.03 0.01 - 0.07 [facility] 10*3/uL SERVICES Specimen Blood - VENOUS Performing Organization Address City/State/Zipcode Phone Number [facility] CLIA: [id number], [address] [place] [address] [phone] [facility] PROTHROMBIN TIME / INR (11/08/2019 4:17 AM COLLECTIONS ASSISTANT) PROTIME PATIENT 13.5 (H) 10.1 - 12.6 [facility] Seconds SERVICES INR 1.2Comment: Normal [facility] INR <1.1; Warfarin SERVICES Therapeutic range 2.0 to 3.0 or 2.5 to 3.5, depending upon the indications. Specimen Blood - VENOUS Performing Organization Address City/State/Zipcode Phone Number [facility] CLIA: [id number], [address] [place] [address] [facility] MAGNESIUM (11/08/2019 4:17 AM COLLECTIONS ASSISTANT) MAGNESIUM 1.6 (L) 1.7 - 2.4 mg/dL [facility] Specimen Blood - VENOUS Performing Organization Address City/[facility] Phone Number [facility] CLIA: [id number], [address] [place] [address] [facility] BASIC METABOLIC PANEL (NA, K, CL, CO2, GLUCOSE, BUN, CREATININE, CA) (2019 4:17 AM COLLECTIONS ASSISTANT) NA 134 (L) 135 - 145 [facility] mmol/L SERVICES K 3.8 3.5 - 5.0 [facility] mmol/L SERVICES CL 106 98 - 108 mmol/L [facility] CO2 TOTAL 21 (L) 23 - 31 mmol/L [facility] AGAP 7 2 - 16 [facility] BUN 14 7 - 23 mg/dL [facility] GLUCOSE 129 (H) 70 - 110 mg/dL [facility] CREATININE 2.24 (H) 0.50 - 1.04 [facility] mg/dL SERVICES CALCIUM 8.2 (L) 8.6 - 10.6 [facility] mg/dL SERVICES eGFR Calculation 24.5 mL/min/1.73m2 [facility] (Non- SERVICES [place]ic) eGFR Calculation 29.7 mL/min/1.73m2 [facility] () SERVICES Specimen Blood - VENOUS Narrative Performed At Association of Glomerular Filtration Rate (GFR) and Staging [facility] of Kidney Disease* + + + + | GFR (mL/min/1.73 m2) | With Kidney Damage | Without Kidney Damage + + + + | >90 | Stage one | Normal + + + + | 60-89 | Stage two | Decreased GFR + + + + | 30-59 | Stage three | Stage three + + + + | 15-29 | Stage four | Stage four + + + + | <15 (or dialysis) | Stage five | Stage five + + + + *Each stage assumes the associated GFR level has been in effect for at least three months. Stages 1 to 5, with or without kidney disease, indicate chronic kidney disease. Notes: Determination of stages one and two (with eGFR >59mL/min/1.73 m2) requires estimation of kidney damage for at least three months as defined by structural or functional abnormalities of the kidney, manifested by either: Pathological abnormalities or Markers of kidney damage (including abnormalities in the composition of the blood or urine or abnormalities in imaging tests). Performing Organization Address City/[facility] Phone Number [facility] CLIA: [id number], [address] [place] [address] [phone] [facility] POCT GLUCOSE (AUTOMATED) (11/07/2019 8:25 PM COLLECTIONS ASSISTANT) POCT GLU 174 (H) 70 - 110 mg/dL [facility] Specimen Blood Performing Organization Address [facility] Phone Number [facility] CLIA: [id number], [address] [place] [address] [facility] POCT GLUCOSE (AUTOMATED) (11/07/2019 4:50 PM COLLECTIONS ASSISTANT) POCT GLU 209 (H) 70 - 110 mg/dL [facility] Specimen Blood Performing Organization Address [facility] Phone Number [facility] CLIA: [id number], [address] [place] [address] 54810 [phone] [facility] POCT GLUCOSE (AUTOMATED) (11/07/2019 12:14 PM COLLECTIONS ASSISTANT) POCT GLU 199 (H) 70 - 110 mg/dL [facility] Specimen Blood Performing Organization Address [facility] Phone Number [facility] CLIA: [id number], [address] [place] [address] [phone] [facility] POCT GLUCOSE (AUTOMATED) (11/07/2019 8:41 AM COLLECTIONS ASSISTANT) POCT GLU 216 (H) 70 - 110 mg/dL [facility] Specimen Blood Performing Organization Address City/State/Zipcode Phone Number [facility] CLIA: [id number], [address] [place] [address] [place] US RETROPERITONEAL COMPLETE (11/07/2019 5:19 AM COLLECTIONS ASSISTANT) Specimen Impressions Performed At PACS/VR/DOSE Unremarkable renal ultrasound. Preliminary Report Dictated by Resident: Gonzalo Rodríguez MD., have reviewed this study and agree with the above report. Narrative Performed At [facility]/VR/DOSE EXAM: RENAL ULTRASOUND: HISTORY: Rapid progression of CKD COMPARISON: CTA 11/07/2019 FINDINGS: Both kidneys are normal in size and echotexture without focal defect, hydronephrosis, or perirenal fluid. The right kidney measures 11 x 4.5 x 4.9 cm (120 mL) and the left kidney measures 11 x 5.2 x 5 cm (134 mL). The urinary bladder is unremarkable. Procedure Note [facility], Radiant Results Inft User - 11/07/2019 1:54 PM COLLECTIONS ASSISTANT EXAM: RENAL ULTRASOUND: HISTORY: Rapid progression of CKD COMPARISON: CTA 11/07/2019 FINDINGS: Both kidneys are normal in size and echotexture without focal defect, hydronephrosis, or perirenal fluid. The right kidney measures 11 x 4.5 x 4.9 cm (120 mL) and the left kidney measures 11 x 5.2 x 5 cm (134 mL). The urinary bladder is unremarkable. IMPRESSION Unremarkable renal ultrasound. Preliminary Report Dictated by Resident: Gonzalo Rodríguez MD., have reviewed this study and agree with the above report. Performing Organization Address City/State/Zipcode Phone Number [facility]/VR/DOSE INTACT PTH CALCIUM GROUP (11/07/2019 4:47 AM COLLECTIONS ASSISTANT) CALCIUM 8.4 (L) 8.6 - 10.6 [facility] mg/dL SERVICES PTH-INTACT 44.0 12.0 - 88.0 [facility] pg/mL SERVICES PTH-CA Interpretation Comment: Further [facility] clinical data SERVICES needed for interpretation. Specimen Blood - VENOUS Performing Organization Address [facility] Phone Number [facility] CLIA: [id number], [address] [place] [address] [facility] C4 COMPLEMENT (11/07/2019 4:47 AM COLLECTIONS ASSISTANT) C4 29 20 - 59 mg/dL [facility] Specimen Blood - VENOUS Performing Organization Address [facility] Phone Number [facility] CLIA: [id number], [address] [place] [address]30 [phone] [facility] C3 COMPLEMENT (11/07/2019 4:47 AM COLLECTIONS ASSISTANT) C3 68 (L) 86 - 184 mg/dL [facility] Specimen Blood - VENOUS Performing Organization Address [facility] Phone Number [facility] CLIA: [id number], [address] [place] [address] [facility] ANTI-NUCLEAR ANTIBODY SCREEN (11/07/2019 4:47 AM COLLECTIONS ASSISTANT) GABRIELLE Negative Negative [facility] Specimen Blood - VENOUS Narrative Performed At Negative - No Anti-Nuclear Antibodies detected by IFA. [facility] Positive - GABRIELLE IFA screen performed with a 1:80 dilution in adults and a 1:40 dilution in pediatrics. Any GABRIELLE "Positive" will have titer performed and reported separately. Performing Organization Address [facility] Phone Number [facility] CLIA: [id number], [address] [place] [address] [facility] NEUTROPHIL CYTOPLASMIC AB, IGG (11/07/2019 4:46 AM COLLECTIONS ASSISTANT) Pathologist [facility] ANCA TITER <1:20 <1:20 AR Comment: The ANCA IFA is <1:20; therefore, no further testing will be performed. INTERPRETIVE INFORMATION: Anti-Neutrophil Cyto Ab, IgG Neutrophil Cytoplasmic Antibodies (C-ANCA=granular cytoplasmic staining, P-ANCA=perinuclear staining) are found in the serum of over 90 percent of patients with certain necrotizing systemic vasculitides, and usually in less than 5 percent of patients with collagen vascular disease or arthritis. Performed by [employer], [address] [place] [id number] [email or web address] Ronald Leija MD, Lab. Director Specimen Blood - VENOUS Performing Organization Address [facility]/State/Zipcode Phone Number [facility] [address] [place] [phone] XR CHEST 1 VW (11/07/2019 1:22 AM COLLECTIONS ASSISTANT) Specimen Impressions Performed At PACS/VR/DOSE Mild pulmonary vascular congestion. Preliminary Report Dictated by Resident: Beny Rodríguez MD., have reviewed this study and agree with the above report. Narrative Performed At PACS/VR/DOSE EXAM: XR CHEST 1 VW HISTORY: SOB TECHNIQUE: AP view of the chest COMPARISON: None FINDINGS: Changes of pulmonary vascular congestion are demonstrated, along with small bilateral pleural effusions; left greater than right. Opacification of the left lower lobe is likely due to a combination of layering pleural effusion and atelectasis. No focal consolidation is seen. No pneumothorax. The cardiac border is partly obscured. Minimal aortic knob calcifications are seen. No acute bony abnormality. Procedure Note [facility], Radiant Results Inft User - 11/07/2019 2:05 AM COLLECTIONS ASSISTANT EXAM: XR CHEST 1 VW HISTORY: SOB TECHNIQUE: AP view of the chest COMPARISON: None FINDINGS: Changes of pulmonary vascular congestion are demonstrated, along with small bilateral pleural effusions; left greater than right. Opacification of the left lower lobe is likely due to a combination of layering pleural effusion and atelectasis. No focal consolidation is seen. No pneumothorax. The cardiac border is partly obscured. Minimal aortic knob calcifications are seen. No acute bony abnormality. IMPRESSION Mild pulmonary vascular congestion. Preliminary Report Dictated by Resident: Beny Rodríguez MD., have reviewed this study and agree with the above report. Performing Organization Address [facility]/Zipcode Phone Number [facility]/VR/DOSE CT ABDOMEN PELVIS WO CONTRAST (11/07/2019 1:00 AM COLLECTIONS ASSISTANT) Specimen Impressions Performed At PACS/VR/DOSE No acute abdominopelvic abnormality. Interval worsening of anasarca, including small-volume perihepatic ascites, moderate body wall edema and bilateral pleural effusions. Preliminary Report Dictated by Resident: Beny Rodríguez MD., have reviewed this study and agree with the above report. Narrative Performed At PACS/VR/DOSE EXAM: CT ABDOMEN/PELVIS WITHOUT CONTRAST HISTORY: Abd pain, acute, generalized COMPARISON: 10/10/2019. TECHNIQUE AND FINDINGS: Contiguous axial imaging from the level of the lung bases through the pubic symphysis was performed without the intravenous administration of contrast. Coronal and sagittal reconstructions were obtained. FINDINGS: LOWER THORAX: Small bilateral pleural effusions are unchanged from prior exam. No cardiomegaly. Trace pericardial effusion. LIVER: No focal hepatic lesions. Small-volume perihepatic fluid, increased from prior exam. GALLBLADDER AND BILIARY TREE: Prior cholecystectomy. SPLEEN: No splenomegaly. PANCREAS: No ductal dilation or masses. ADRENAL GLANDS: Evaluation of the adrenal glands is slightly limited without contrast, however no adrenal nodules are identified. KIDNEYS: No hydronephrosis, stones, or masses. Mild symmetric perinephric stranding is again seen. PERITONEUM AND RETROPERITONEUM: No free air or fluid. LYMPH NODES: No lymphadenopathy. GI TRACT: No dilation or wall thickening. An appendix is not definitively visualized, however no pericecal inflammation is seen. PELVIS/BLADDER: Mild circumferential bladder wall thickening is similar to prior exam and could be due to decompression. The uterus and ovaries appear normal. Trace pelvic fluid. VESSELS: Mild aortoiliac atherosclerosis. BONES AND SOFT TISSUES: No suspicious lytic or sclerotic bony lesions. Moderate body wall edema is slightly increased from prior exam. Procedure Note [facility], Radiant Results Inft User - 11/07/2019 1:54 AM COLLECTIONS ASSISTANT EXAM: CT ABDOMEN/PELVIS WITHOUT CONTRAST HISTORY: Abd pain, acute, generalized COMPARISON: 10/10/2019. TECHNIQUE AND FINDINGS: Contiguous axial imaging from the level of the lung bases through the pubic symphysis was performed without the intravenous administration of contrast. Coronal and sagittal reconstructions were obtained. FINDINGS: LOWER THORAX: Small bilateral pleural effusions are unchanged from prior exam. No cardiomegaly. Trace pericardial effusion. LIVER: No focal hepatic lesions. Small-volume perihepatic fluid, increased from prior exam. GALLBLADDER AND BILIARY TREE: Prior cholecystectomy. SPLEEN: No splenomegaly. PANCREAS: No ductal dilation or masses. ADRENAL GLANDS: Evaluation of the adrenal glands is slightly limited without contrast, however no adrenal nodules are identified. KIDNEYS: No hydronephrosis, stones, or masses. Mild symmetric perinephric stranding is again seen. PERITONEUM AND RETROPERITONEUM: No free air or fluid. LYMPH NODES: No lymphadenopathy. GI TRACT: No dilation or wall thickening. An appendix is not definitively visualized, however no pericecal inflammation is seen. PELVIS/BLADDER: Mild circumferential bladder wall thickening is similar to prior exam and could be due to decompression. The uterus and ovaries appear normal. Trace pelvic fluid. VESSELS: Mild aortoiliac atherosclerosis. BONES AND SOFT TISSUES: No suspicious lytic or sclerotic bony lesions. Moderate body wall edema is slightly increased from prior exam. IMPRESSION No acute abdominopelvic abnormality. Interval worsening of anasarca, including small-volume perihepatic ascites, moderate body wall edema and bilateral pleural effusions. Preliminary Report Dictated by Resident: Summer Hayes I, Beny Robles MD., have reviewed this study and agree with the above report. Performing Organization Address City/[facility] Phone Number PACS/VR/DOSE CHLORIDE, URINE RANDOM (11/07/2019 12:24 AM COLLECTIONS ASSISTANT) CL URINE 93 20 - 295 mmol/L [facility] Specimen Urine - URINE, CLEAN CATCH Performing Organization Address [facility] Phone Number [facility] CLIA: [id number], [address] [place] [address] [phone] [facility] POTASSIUM, URINE RANDOM (11/07/2019 12:24 AM COLLECTIONS ASSISTANT) K URINE 21.6 mmol/L [facility] Specimen Urine - URINE, CLEAN CATCH Performing Organization Address [facility] Phone Number [facility] CLIA: [id number], [address] [place] [phone] [facility] SODIUM, URINE RANDOM (11/07/2019 12:24 AM COLLECTIONS ASSISTANT) NA URINE 76 mmol/L [facility] Specimen Urine - URINE, CLEAN CATCH Performing Organization Address [facility] Phone Number [facility] CLIA: [id number], [address] [place] [phone] [facility] UREA NITROGEN, URINE RANDOM (11/07/2019 12:24 AM COLLECTIONS ASSISTANT) UREA N UR 280 mg/dL [facility] Specimen Urine - URINE, CLEAN CATCH Performing Organization Address [facility]/Zipcode Phone Number [facility] CLIA: [id number], [address] [place] [address] [phone] [facility] DRUG PANEL 2 URINE (11/07/2019 12:24 AM COLLECTIONS ASSISTANT) AMPHET Negative Negative [facility] VINOD U Negative Negative [facility] BENZO U Negative Negative [facility] Cocaine Metabolite Negative Negative [facility] METHADONE Negative Negative [facility] OPIATES Presumptive Negative [facility] Positive (A) SERVICES PCP Negative Negative [facility] THC Negative Negative [facility] Specimen Urine - URINE, CLEAN CATCH Narrative Performed At Urine Drug Cutoff Ranges [facility] Cocaine: 150 ng/mL Benzodiazepines: 200 ng/mL Methadone: 300 ng/mL Amphetamine: 1,000 ng/mL Opiates: 300 ng/mL Cannabinoids: 50 ng/mL Phencyclidine: 25 ng/mL Barbiturates: 200 ng/mL The results are to be used only for medical (i.e., treatment) purposes. Unconfirmed screening results must not be used for non-medical purposes (e.g., employment testing, legal testing). Performing Organization Address City/[facility]/Zipcode Phone Number [facility] CLIA: [id number], [address] [place] [address] [phone] [facility] PROTEIN CREAT RATIO URINE RANDOM (11/07/2019 12:24 AM COLLECTIONS ASSISTANT) Pathologist [facility] T. PROT U 639 mg/dL [facility] CREAT U 103.7 mg/dL [facility] Protein/Creatinine 6.2 (H) 0.0 - 2.0 [facility] Ratio Urine SERVICES Specimen Urine - URINE, CLEAN CATCH Performing Organization Address City/[facility]/Zipcode Phone Number [facility] CLIA: [id number], [address] [place] [address]184 [phone] [facility] aPTT (11/07/2019 12:24 AM COLLECTIONS ASSISTANT) Pathologist [facility] APTT Patient 30 26 - 36 Seconds [facility] Specimen Blood - VENOUS Performing Organization Address City/[facility]/Zipcode Phone Number [facility] CLIA: [id number], [address] [place] [phone] [facility] PROTHROMBIN TIME / INR (11/07/2019 12:24 AM COLLECTIONS ASSISTANT) PROTIME PATIENT 12.5 10.1 - 12.6 [facility] Seconds SERVICES INR 1.1Comment: Normal [facility] INR <1.1; Warfarin SERVICES Therapeutic range 2.0 to 3.0 or 2.5 to 3.5, depending upon the indications. Specimen Blood - VENOUS Performing Organization Address City/[facility]/Zipcode Phone Number [facility] CLIA: [id number], [address] [place] [address] [facility] Urinalysis (11/07/2019 12:24 AM COLLECTIONS ASSISTANT) Pathologist [facility] APPEARANCE Hazy (A) Clear [facility] COLOR Yellow Yellow [facility] PH 5.0 4.8 - 8.0 [facility] SP GRAVITY 1.011 1.003 - 1.030 [facility] GLU U QUAL 50 mg/dL (A) Normal [facility] BLOOD 2+ (A) Negative [facility] KETONES 5 mg/dL (A) Negative [facility] PROTEIN 500 mg/dL (A) Negative [facility] UROBILIN Normal Normal [facility] BILIRUBIN Negative Negative [facility] NITRITE Negative Negative [facility] [place] Negative Negative [facility] RBC/HPF 83 (H) 0 - 3 HPF [facility] WBC/HPF 8 (H) 0 - 5 HPF [facility] BACTERIA Negative Negative [facility] MUCOUS Slight (A) Negative LPF [facility] SQ EPITH 2 <=2 HPF [facility] ASCORBIC ACID Negative [facility] Specimen Urine - URINE, CLEAN CATCH Performing Organization Address City/State/Zipcode Phone Number [facility] CLIA: [id number], [address] [place] [phone] [facility] Type and Screen - ONCE STAT (11/07/2019 12:08 AM COLLECTIONS ASSISTANT) Pathologist [facility] ABO & RH O POSITIVE LAB Comment: Performed at [facility] Services - [address] [address] Toll Free: [phone] CLIA No. [id number] IAT Negative LAB Comment: Performed at [facility] Services - [facility] Blood Bank [address] [place] [address] Toll Free: [phone] CLIA No. [id number] Specimen Blood - VENOUS Performing Organization Address City/[facility] Phone Number [facility] CREATINE KINASE (11/07/2019 12:05 AM COLLECTIONS ASSISTANT) CK 68 33 - 194 U/L [facility] Specimen Blood - VENOUS Performing Organization Address [facility] Phone Number [facility] CLIA: [id number], [address] [place] [phone] [facility] MAGNESIUM (11/07/2019 12:05 AM COLLECTIONS ASSISTANT) MAGNESIUM 1.8 1.7 - 2.4 mg/dL [facility] Specimen Blood - VENOUS Performing Organization Address [facility] Phone Number [facility] CLIA: [id number], [address] [place] [address] [facility] PHOSPHORUS (11/07/2019 12:05 AM COLLECTIONS ASSISTANT) PHOSPHORUS 4.0 2.5 - 5.0 mg/dL [facility] Specimen Blood - VENOUS Performing Organization Address [facility] Phone Number [facility] CLIA: [id number], [address] [place] [address] [facility] DIFF CONSULT INTERPRETATION (11/07/2019 12:05 AM COLLECTIONS ASSISTANT) Specimen Blood - VENOUS Narrative Performed At Red blood cells are normocytic and normochromic but [facility] decreased in number. No increased spherocytes or schistocytes. Polychromasia is appropriate. Neutrophils appear normal morphologically without dysplastic changes or other abnormalities. Lymphocytes are small and mature. Platelets are normal. Normocytic anemia, favor anemia of chronic disease. Performing Organization Address City/[facility]/Zipcode Phone Number [facility] CLIA: [id number], [address] [place] [phone] [facility] IRON PANEL (11/07/2019 12:05 AM COLLECTIONS ASSISTANT) IRON 57 50 - 160 ug/dL [facility] TIBC 277 250 - 410 ug/dL [facility] % FE SAT 21 20 - 50 % [facility] Specimen Blood - VENOUS Performing Organization Address City/[facility] Phone Number [facility] CLIA: [id number], [address] [place] [address] [facility] FERRITIN SERUM (11/07/2019 12:05 AM COLLECTIONS ASSISTANT) FERRITIN 18.6 6.0 - 137.0 ng/mL [facility] Specimen Blood - VENOUS Narrative Performed At [facility] has been reported to cause a negative bias, interpret [facility] results relative to patient's use of biotin. Performing Organization Address City/[facility] Phone Number [facility] CLIA: [id number], [address] [place] [address]35 [phone] [facility] GLYCOSYLATED HEMOGLOBIN (A1C) (11/07/2019 12:05 AM COLLECTIONS ASSISTANT) HGB A1C 7.8 (H) 4.0 - 6.0 % [facility] Specimen Blood - VENOUS Performing Organization Address [facility] Phone Number [facility] CLIA: [id number], [address] [place] [address]48 [phone] [facility] HCV ANTIBODY (11/07/2019 12:05 AM COLLECTIONS ASSISTANT) HCV Ab Negative [facility] HCV Semi-Quantitative 0.01 [facility] Specimen Blood - VENOUS Performing Organization Address [facility] Phone Number [facility] CLIA: [id number], [address] [place] [phone] [facility] HBC ANTIBODY (IGM & IGG) (11/07/2019 12:05 AM COLLECTIONS ASSISTANT) HBC Negative [facility] HBC Semi-Quantitative 2.99 [facility] Specimen Blood - VENOUS Performing Organization Address [facility] Phone Number [facility] CLIA: [id number], [address] [place] [address]128 [phone] [facility] HEPATITIS B SURFACE ANTIGEN (11/07/2019 12:05 AM COLLECTIONS ASSISTANT) HBsAg Negative Negative [facility] HBsAg 0.04 [facility] Semi-Quantitative SERVICES Specimen Blood - VENOUS Performing Organization Address [facility]/Zipcode Phone Number [facility] CLIA: [id number], [address] [place] [address] [facility] HEPATITIS B SURFACE ANTIBODY (11/07/2019 12:05 AM COLLECTIONS ASSISTANT) HBsAB Negative [facility] HBsAb 0.30 mIU/mL [facility] Semi-Quantitative SERVICES Specimen Blood - VENOUS Narrative Performed At Interpretation: Hepatitis B Surface Antibody [facility] Negative - Patient is considered to be not immune to infection with HBV. Positive - Anti-HBs detected at greater than or equal to 12 mIU/mL. Patient is considered to be immune to infection with HBV. Performing Organization Address City/State/Zipcode Phone Number [facility] CLIA: [id number], [address] [place] [address] [facility] HIV 1/2 AG-AB WITH REFLEX (11/07/2019 12:05 AM COLLECTIONS ASSISTANT) HIV 1/2 Ag-Ab with Negative Negative [facility] Reflex SERVICES HIV Semi-quantitative 0.06 [facility] Specimen Blood - VENOUS Narrative Performed At Non-reactive for HIV-1 antigen and HIV-1/HIV-2 antibodies. [facility] No laboratory evidence of HIV infection. Repeat in 2-4 weeks if acute HIV infection is suspected. Performing Organization Address City/State/Zipcode Phone Number [facility] CLIA: [id number], [address] [place] [address] [facility] URIC ACID (11/07/2019 12:05 AM COLLECTIONS ASSISTANT) URIC ACID 5.1 2.9 - 6.0 mg/dL [facility] Specimen Blood - VENOUS Performing Organization Address City/State/Zipcode Phone Number [facility] CLIA: [id number], [address] [place] [phone] [facility] LIPID PANEL ([id number])(TOTAL CHOLESTEROL, TRIGLYCERIDES, HDL) (11/07/2019 12:05 AM COLLECTIONS ASSISTANT) CHOL 198 120 - 200 mg/dL [facility] HDL 60 >50 mg/dL [facility] HDLC RATIO 3.3 <=4.5 [facility] TRIG 135 30 - 170 mg/dL [facility] LDL CHOL 111 <=160 mg/dL [facility] VLDL 27 5 - 60 mg/dL [facility] Specimen Blood - VENOUS Performing Organization Address City/State/Zipcode Phone Number [facility] CLIA: [id number], [address] [place] [address]64 [phone] [facility] N-TERMINAL PRO-BNP (11/07/2019 12:05 AM COLLECTIONS ASSISTANT) NT-proBNP 8,570 (H) <=125 pg/mL [facility] Specimen Blood - VENOUS Narrative Performed At Biotin has been reported to cause a negative bias, interpret [facility] results relative to patient's use of biotin. Performing Organization Address City/State/Zipcode Phone Number [facility] CLIA: [id number], [address] [place] [phone] [facility] Lactic Acid Whole Blood (11/07/2019 12:05 AM COLLECTIONS ASSISTANT) LACTIC ACID 1.33 0.50 - 2.20 mmol/L [facility] Specimen Blood - VENOUS Performing Organization Address [facility] Phone Number [facility] CLIA: [id number], [address] [place] [phone] [facility] TROPONIN I (11/07/2019 12:05 AM COLLECTIONS ASSISTANT) TROPONIN I 0.011 <=0.034 ng/mL [facility] Specimen Blood - VENOUS Narrative Performed At Equal or Less than 0.034 ng/ml---Normal [facility] Note: Cardiac troponin begins to rise 3-4 hours after the onset of ischemia. Repeat in 4-6 hours if the sample was drawn within 3-4 hours of the onset of the symptom and found normal. Between 0.035 and 0.120 ng/mL--- Borderline. Questionable myocardial injury or necrosis Note: Serial measurement may be necessary to confirm or exclude the diagnosis of myocardial injury or necrosis; Clinical correlation (symptoms, EKGs, imaging studies, and others) required; Repeat in 4-6 hours if clinically indicated. Equal or Higher than 0.121 ng/mL---Abnormal. Myocardial Injury or Necrosis Likely Biotin has been reported to cause a negative bias, interpret results relative to patient's use of biotin. Performing Organization Address City/State/Zipcode Phone Number [facility] CLIA: [id number], [address] [place] [address] [facility] CBC WITH DIFFERENTIAL (11/07/2019 12:05 AM COLLECTIONS ASSISTANT) WBC 8.96 4.30 - 11.10 [facility] 10*3/L SERVICES RBC 3.42 (L) 3.93 - 5.25 [facility] 10*6/L SERVICES HGB 9.9 (L) 11.6 - 15.0 [facility] g/dL SERVICES HCT 31.5 (L) 35.7 - 45.2 % [facility] MCV 92.1 80.6 - 95.5 fL [facility] MCH 28.9 25.9 - 32.8 pg [facility] MCHC 31.4 (L) 31.6 - 35.1 [facility] g/dL SERVICES RDW-SD 44.7 39.0 - 49.9 fL [facility] RDW-CV 13.2 12.0 - 15.5 % [facility] PLT 231 166 - 358 [facility] 10*3/L SERVICES MPV 12.1 9.5 - 12.9 fL [facility] NRBC/100 WBC 0.0 0.0 - 10.0 /100 [facility] WBCs SERVICES NRBC x10^3 <0.01 10*3/L [facility] GRAN MAT (NEUT) % 79.0 % [facility] IMM GRAN % 0.40 % [facility] LYMPH % 12.5 % [facility] MONO % 6.7 % [facility] EOS % 0.8 % [facility] BASO % 0.6 % [facility] GRAN MAT x10^3(ANC) 7.08 1.88 - 7.09 [facility] 10*3/uL SERVICES IMM GRAN x10^3 0.04 0.00 - 0.06 [facility] 10*3/uL SERVICES LYMPH x10^3 1.12 (L) 1.32 - 3.29 [facility] 10*3/uL SERVICES MONO x10^3 0.60 0.33 - 0.92 [facility] 10*3/uL SERVICES EOS x10^3 0.07 0.03 - 0.39 [facility] 10*3/uL SERVICES BASO x10^3 0.05 0.01 - 0.07 [facility] 10*3/uL SERVICES Specimen Blood - VENOUS Performing Organization Address City/[facility]/Zipcode Phone Number [facility] CLIA: [id number], [address] [place] [address] [facility] TEST, SERUM (11/07/2019 12:05 AM COLLECTIONS ASSISTANT) PREG SERUM Negative [facility] Specimen Blood - VENOUS Narrative Performed At Less than 10 IU/L. If low titer or ectopic is [facility] suspected, resubmit specimen in 48-72 hours. Performing Organization Address City/[facility]/Zipcode Phone Number [facility] CLIA: [id number], [address] [place] [address] [facility] Lipase, Serum (11/07/2019 12:05 AM COLLECTIONS ASSISTANT) Pathologist [facility] LIPASE 63 0 - 220 U/L [facility] Specimen Blood - VENOUS Performing Organization Address City/[facility] Phone Number [facility] CLIA: [id number], [address] [place] [address] [facility] Complete Metabolic Panel (11/07/2019 12:05 AM COLLECTIONS ASSISTANT) Pathologist [facility] NA 134 (L) 135 - 145 [facility] mmol/L SERVICES K 4.7 3.5 - 5.0 [facility] mmol/L SERVICES CL 106 98 - 108 mmol/L [facility] CO2 TOTAL 15 (L) 23 - 31 mmol/L [facility] AGAP 13 2 - 16 [facility] BUN 14 7 - 23 mg/dL [facility] GLUCOSE 167 (H) 70 - 110 mg/dL [facility] CREATININE 2.69 (H) 0.50 - 1.04 [facility] mg/dL SERVICES TOTAL BILI 0.4 0.1 - 1.1 mg/dL [facility] CALCIUM 8.9 8.6 - 10.6 [facility] mg/dL SERVICES T PROTEIN 5.8 (L) 6.3 - 8.2 g/dL [facility] ALBUMIN 3.5 3.5 - 5.0 g/dL [facility] ALK PHOS 96 34 - 122 U/L [facility] ALTv 27 5 - 35 U/L [facility] AST(SGOT) 17 13 - 40 U/L [facility] eGFR Calculation 19.8 mL/min/1.73m2 [facility] (Non- SERVICES [place]ic) eGFR Calculation 24.0 mL/min/1.73m2 [facility] () SERVICES Specimen Blood - VENOUS Narrative Performed At Association of Glomerular Filtration Rate (GFR) and Staging [facility] of Kidney Disease* + + + + | GFR (mL/min/1.73 m2) | With Kidney Damage | Without Kidney Damage + + + + | >90 | Stage one | Normal + + + + | 60-89 | Stage two | Decreased GFR + + + + | 30-59 | Stage three | Stage three + + + + | 15-29 | Stage four | Stage four + + + + | <15 (or dialysis) | Stage five | Stage five + + + + *Each stage assumes the associated GFR level has been in effect for at least three months. Stages 1 to 5, with or without kidney disease, indicate chronic kidney disease. Notes: Determination of stages one and two (with eGFR >59mL/min/1.73 m2) requires estimation of kidney damage for at least three months as defined by structural or functional abnormalities of the kidney, manifested by either: Pathological abnormalities or Markers of kidney damage (including abnormalities in the composition of the blood or urine or abnormalities in imaging tests). Performing Organization Address City/State/Zipcode Phone Number [facility] CLIA: [id number], [address] [place] [address] [facility] documented in this encounter Visit Diagnoses Diagnosis Vomiting, intractability of vomiting not specified, presence of nausea not specified, unspecified vomiting type - Primary Intractable vomiting with nausea, unspecified vomiting type Generalized edema Edema Hypertension, unspecified type Stage 3 chronic kidney disease Gastroparesis Gastritis without bleeding, unspecified chronicity, unspecified gastritis type Type 2 diabetes mellitus with stage 3 chronic kidney disease, with long-term current use of insulin Nausea and vomiting, intractability of vomiting not specified, unspecified vomiting type Intractable vomiting Persistent vomiting documented in this encounter Administered Medications Medication Order MAR Action Action Date Dose Rate Site amLODIPine (NORVASC) tablet 10 mg Given 11/12/2019 8:24 AM COLLECTIONS ASSISTANT 10 mg 10 mg, Oral, DAILY, First dose on 11/08/19 at 0900, Until Discontinued, Routine Given 11/11/2019 8:40 AM COLLECTIONS ASSISTANT 10 mg Given 11/10/2019 8:52 AM COLLECTIONS ASSISTANT 10 mg carvedilol (COREG) tablet 37.5 mg Given 11/12/2019 8:24 AM COLLECTIONS ASSISTANT 37.5 mg 37.5 mg, Oral, BID MEALS, First dose on 11/08/19 at 0800, Until Discontinued, Routine Given 11/11/2019 5:14 PM COLLECTIONS ASSISTANT 37.5 mg Given 11/11/2019 8:40 AM COLLECTIONS ASSISTANT 37.5 mg furosemide (LASIX) tablet 80 mg Given 11/12/2019 8:24 AM COLLECTIONS ASSISTANT 80 mg 80 mg, Oral, QAM+PM, First dose on 11/11/19 at 1700, Until Discontinued, Routine Given 11/11/2019 5:14 PM COLLECTIONS ASSISTANT 80 mg heparin (porcine) injection Given 11/11/2019 7:39 PM COLLECTIONS ASSISTANT 5,000 Units Abdomen-SC 5,000 Units 5,000 Units, Subcutaneous, Q12H, First dose on 11/07/19 at 0800, Until Discontinued, Routine Given 11/11/2019 8:40 AM COLLECTIONS ASSISTANT 5,000 Units Abdomen-SC Given 11/10/2019 7:42 PM COLLECTIONS ASSISTANT 5,000 Units Abdomen-SC hydralAZINE (APRESOLINE) injection 10 mg 10 mg, Intravenous, Q6HPRN, Starting 11/07/19 at 2054, Until Discontinued, ELIJAH, Hypertensive emergency, if SBP>170 or DBP>100 insulin NPH and regular human Given 11/12/2019 8:25 AM COLLECTIONS ASSISTANT 10 Units Abdomen-SC 70-30 (HUMULIN 70-30 U-100 INSULIN) 100 unit/mL (70-30) injection 10 Units 10 Units, Subcutaneous, BIDAC, First dose on 11/07/19 at 0730, Until Discontinued, Routine Given 11/11/2019 5:15 PM COLLECTIONS ASSISTANT 10 Units Abdomen-SC Given 11/11/2019 8:44 AM COLLECTIONS ASSISTANT 5 Units Abdomen-SC maalox:diphenhydrAMINE:lidocaine 2 % viscous Given 11/08/2019 9:02 AM COLLECTIONS ASSISTANT 15 mL 1:1:1 (FIRST-MOUTHWASH BLM) oral suspension 15 mL 15 mL, Oral (Swish & Swallow), QDAILYPRN, Starting 11/08/19 at 0659, Until Discontinued, ELIJAH, Please give before eating or if belly pain continues metoclopramide HCl (REGLAN) tablet 10 mg Given 11/12/2019 8:24 AM COLLECTIONS ASSISTANT 10 mg 10 mg, Oral, AC, First dose on 11/09/19 at 1630, Until Discontinued, Routine Given 11/11/2019 5:14 PM COLLECTIONS ASSISTANT 10 mg Given 11/11/2019 12:21 PM COLLECTIONS ASSISTANT 10 mg ondansetron (ZOFRAN) tablet 8 mg 8 mg, Oral, Q6HPRN, Starting Sat11/11/19 at 1735, Until Discontinued, Routine, Nausea and Vomiting (N/V) pantoprazole (PROTONIX) EC tablet 40 mg Given 11/12/2019 8:24 AM COLLECTIONS ASSISTANT 40 mg 40 mg, Oral, BID, First dose on Sat11/11/19 at 2000, Until Discontinued, Routine Given 11/11/2019 7:39 PM COLLECTIONS ASSISTANT 40 mg sennosides (SENOKOT) tablet 8.6 mg Given 11/11/2019 8:40 AM COLLECTIONS ASSISTANT 8.6 mg 8.6 mg, Oral, QDAILYPRN, Starting 11/08/19 at 1256, Until Discontinued, Routine, Constipation Sliding Scale Insulin-Regular + Given 11/11/2019 5:15 PM COLLECTIONS ASSISTANT 4 Units Abdomen-SC Fsbg Testing Subcutaneous, AC+HS, First dose on 11/07/19 at 0730, Until Discontinued, Routine Given 11/10/2019 5:07 PM COLLECTIONS ASSISTANT 1 Units Abdomen-SC sucralfate (CARAFATE) tablet 1 g Given 11/12/2019 8:24 AM COLLECTIONS ASSISTANT 1 g 1 g, Oral, AC+HS, First dose on 11/07/19 at 0730, Until Discontinued, Routine Given 11/11/2019 7:39 PM COLLECTIONS ASSISTANT 1 g Given 11/11/2019 5:14 PM COLLECTIONS ASSISTANT 1 g traMADol (ULTRAM) tablet 50 mg Given 11/10/2019 11:04 AM COLLECTIONS ASSISTANT 50 mg 50 mg, Oral, Q6HPRN, Starting 11/10/19 at 0906, Until Discontinued, Routine, Pain (scale 4-6) Medication Order MAR Action Action Date Dose Rate Site famotidine (PEPCID AC) tablet 10 Given 11/08/2019 8:04 AM COLLECTIONS ASSISTANT 10 mg mg 10 mg, Oral, BID, First dose on 11/07/19 at 0800, Until Discontinued, Routine FENTanyl PF (SUBLIMAZE (PF)) injection Given 11/10/2019 5:39 AM COLLECTIONS ASSISTANT 12.5 mcg 12.5 mcg 12.5 mcg, Slow IV Push, Q6HPRN, Starting 11/08/19 at 1256, Until Sat11/10/19 at 1118, Routine, Pain (scale 7-10) furosemide (LASIX) injection 40 mg Given 11/07/2019 5:49 AM COLLECTIONS ASSISTANT 40 mg 40 mg, Slow IV Push, ONCE, 1 dose, 11/07/19 at 0515, Routine furosemide (LASIX) injection 40 mg Given 11/11/2019 8:40 AM COLLECTIONS ASSISTANT 40 mg 40 mg, Slow IV Push, Q12H, First dose on 11/08/19 at 0800, Until Discontinued, Routine Given 11/10/2019 7:41 PM COLLECTIONS ASSISTANT 40 mg Given 11/10/2019 8:45 AM COLLECTIONS ASSISTANT 40 mg KCL (POTASSIUM CHLORIDE) 40 mEq in NaCl 0.9% Given 11/11/2019 10:38 AM COLLECTIONS ASSISTANT 40 mEq (NS) 250 mL piggyback 40 mEq, IV Piggyback, ONCE, 1 dose, 11/11/19 at 0830, 250 mL KCL (POTASSIUM CHLORIDE) 40 mEq in NaCl 0.9% Given 11/08/2019 12:14 PM COLLECTIONS ASSISTANT 40 mEq (NS) piggyback 40 mEq, IV Piggyback, ONCE, 1 dose, Enochs 11/08/19 at 0815, 250 mL magnesium sulfate in water 2 gram/50 mL (4 %) New Bag 11/08/2019 10:22 AM COLLECTIONS ASSISTANT 2 g infusion 2 g 2 g, IV Piggyback, ONCE, 1 dose, Enochs 11/08/19 at 0815, Routine magnesium sulfate in water 4 gram/50 mL (8 %) New Bag 11/11/2019 8:38 AM COLLECTIONS ASSISTANT 4 g IV Piggyback 4 g 4 g, IV Piggyback, ONCE, 1 dose, 11/11/19 at 0830, Routine metoclopramide HCl (REGLAN) 5 mg/5 mL solution Given 11/07/2019 10:39 AM COLLECTIONS ASSISTANT 5 mg 5 mg 5 mg, Oral, AC, First dose on 11/07/19 at 0730, Until Discontinued, Routine Given 11/07/2019 8:27 AM COLLECTIONS ASSISTANT 5 mg metoclopramide HCl (REGLAN) injection 10 mg Given 11/07/2019 12:27 AM COLLECTIONS ASSISTANT 10 mg 10 mg, Slow IV Push, ONCE, 1 dose, 11/07/19 at 0015, ELIJAH metoclopramide HCl (REGLAN) injection 10 mg Given 11/09/2019 8:55 AM COLLECTIONS ASSISTANT 10 mg 10 mg, Slow IV Push, TIDAC, First dose on 11/07/19 at 1300, Until Discontinued, Routine Given 11/08/2019 7:08 PM COLLECTIONS ASSISTANT 10 mg Given 11/08/2019 12:15 PM COLLECTIONS ASSISTANT 10 mg morpHINE injection 4 mg Given 11/07/2019 12:27 AM COLLECTIONS ASSISTANT 4 mg 4 mg, Slow IV Push, ONCE, 1 dose, 11/07/19 at 0000, STAT morpHINE injection 4 mg Given 11/07/2019 12:51 PM COLLECTIONS ASSISTANT 4 mg 4 mg, Slow IV Push, ONCE, 1 dose, 11/07/19 at 1230, STAT morpHINE injection 4 mg Given 11/07/2019 8:23 PM COLLECTIONS ASSISTANT 4 mg 4 mg, Slow IV Push, Q4HPRN, Starting 11/07/19 at 2010, Until 11/08/19 at 0657, Routine, Pain (scale 7-10) NaCl 0.9% (NS) bolus infusion New Bag 11/07/2019 12:27 AM COLLECTIONS ASSISTANT 1,000 mL 999 mL/hr 1,000 mL at 999 mL/hr, 1,000 mL, IV Infusion, ONCE, 1 dose, 11/07/19 at 0015, STAT ondansetron (ZOFRAN (PF)) injection 4 mg Given 11/07/2019 2:08 AM COLLECTIONS ASSISTANT 4 mg 4 mg, Slow IV Push, ONCE, 1 dose, 11/07/19 at 0300, ELIJAH ondansetron (ZOFRAN (PF)) injection 4 mg Given 11/07/2019 4:43 AM COLLECTIONS ASSISTANT 4 mg 4 mg, Slow IV Push, ONCE, 1 dose, 11/07/19 at 0430, ELIJAH ondansetron (ZOFRAN (PF)) injection 4 mg Given 11/10/2019 1:36 AM COLLECTIONS ASSISTANT 4 mg 4 mg, Slow IV Push, Q6HPRN, Starting 11/07/19 at 0815, Until Sat11/10/19 at 0739, ELIJAH, N/V unresponsive to Promethazine Given 11/09/2019 8:36 AM COLLECTIONS ASSISTANT 4 mg Given 11/08/2019 4:25 AM COLLECTIONS ASSISTANT 4 mg ondansetron (ZOFRAN (PF)) injection 4 mg Given 11/10/2019 8:45 AM COLLECTIONS ASSISTANT 4 mg 4 mg, Slow IV Push, Q6HPRN, Starting Sat11/10/19 at 0745, Until Sat11/11/19 at 1735, ELIJAH, Nausea and Vomiting (N/V) pantoprazole (PROTONIX) 40 mg in NaCl 0.9% Given 11/08/2019 10:22 AM COLLECTIONS ASSISTANT 40 mg (NS) 100 mL MINI-BAG 40 mg, IV Piggyback, DAILY, First dose on Sat11/07/19 at 0915, Until Discontinued, 100 mL Given 11/07/2019 10:32 AM COLLECTIONS ASSISTANT 40 mg pantoprazole (PROTONIX) 40 mg in NaCl 0.9% Given 11/11/2019 8:36 AM COLLECTIONS ASSISTANT 40 mg (NS) 100 mL MINI-BAG 40 mg, IV Piggyback, Q12H, First dose on Sat11/08/19 at 2000, Until Discontinued, 100 mL Given 11/10/2019 7:42 PM COLLECTIONS ASSISTANT 40 mg Given 11/10/2019 8:52 AM COLLECTIONS ASSISTANT 40 mg pantoprazole (PROTONIX) 80 mg in NaCl 0.9% Given 11/07/2019 1:30 AM COLLECTIONS ASSISTANT 80 mg (NS) 20 mL syringe 80 mg, IV Push, ONCE, 1 dose, Sat11/07/19 at 0130, 20 mL pantoprazole (PROTONIX) EC tablet 40 mg Given 11/07/2019 1:16 AM COLLECTIONS ASSISTANT 40 mg 40 mg, Oral, ONCE, 1 dose, 11/07/19 at 0115, ELIJAH proMETHazine (PHENERGAN) 25 mg in NaCl 0.9% Given 11/07/2019 5:46 AM COLLECTIONS ASSISTANT 25 mg (NS) 50 mL IV piggyback 25 mg, IV Piggyback, Q4HPRN, Starting 11/07/19 at 0431, Until Sat11/07/19 at 1627, Routine, Nausea and Vomiting (N/V) proMETHazine (PHENERGAN) 25 mg in NaCl 0.9% Given 11/10/2019 5:33 AM COLLECTIONS ASSISTANT 25 mg (NS) 50 mL IV piggyback 25 mg, IV Piggyback, Q4HPRN, Starting 11/07/19 at 1626, Until Sat11/11/19 at 1735, ELIJAH, Nausea and Vomiting (N/V) Given 11/09/2019 2:04 PM COLLECTIONS ASSISTANT 25 mg Given 11/09/2019 2:12 AM COLLECTIONS ASSISTANT 25 mg traMADol (ULTRAM) tablet 50 mg Given 11/08/2019 7:09 PM COLLECTIONS ASSISTANT 50 mg 50 mg, Oral, Q6HPRN, Starting 11/07/19 at 0503, Until Tu11/10/19 at 0739, Routine, Pain (scale 4-6), Pain (scale 7-10) Given 11/08/2019 2:12 PM COLLECTIONS ASSISTANT 50 mg Given 11/08/2019 8:04 AM COLLECTIONS ASSISTANT 50 mg trimethobenzamide (TIGAN) injection Given 11/10/2019 3:04 AM COLLECTIONS ASSISTANT 100 mg Left Arm 100 mg 100 mg, Intramuscular, Q6HPRN, Starting 11/09/19 at 1328, Until Sat11/11/19 at 1735, Routine, Nausea and Vomiting (N/V) Given 11/09/2019 4:12 PM COLLECTIONS ASSISTANT 100 mg Right Deltoid-IM documented in this encounter
--- OUTSIDE RECORDS SUMMARY | 2019-12-25 06:11 | XMS REPORT | Summary of Care ---
:1980 Author Organization [address] [address] Care Team Providers Name Role Phone Liv Khan Primary Care Provider Reason for Visit Reason Comments Referral/consult CHP Referral Encounter Details Date Type Department Care Team Description 11/18/2019 Patient Outreach [facility] Lila Hanna RN Referral/consult [address] (P Referral) [place], [place] [id number] Allergies No Known Allergiesdocumented as of this encounter (statuses as of 11/18/2019) Medications Medication Sig Dispensed Refills Start Date End Date Status insulin NPH and inject 10 Units 1 Vial 3 11/12/2019 Suspended regular human 70-30 under the skin 2 100 unit/mL (70-30) (two) times daily injectionIndication before breakfast s: Type 2 diabetes and dinner. mellitus with stage 3 chronic kidney disease, with long-term current use of insulin Additional information metoclopramide HCl 10 mg Take 1 tablet by 90 tablet 2 11/12/2019 Suspended tabletIndications: mouth before meals. Gastroparesis Additional information ondansetron 8 mg Take 1 tablet by 21 tablet 0 11/12/2019 Suspended tabletIndications: Nausea and mouth every 8 vomiting, intractability of (eight) hours as vomiting not specified, needed for Nausea unspecified vomiting type and Vomiting (N/V). Additional information pantoprazole 40 mg EC Take 1 tablet by 60 tablet 2 11/12/2019 Suspended tabletIndications: Gastritis mouth 2 (two) times without bleeding, unspecified daily. chronicity, unspecified gastritis type Additional information sucralfate 1 gram Take 1 tablet by 120 tablet 2 11/12/2019 Suspended tabletIndications: Gastritis mouth before meals without bleeding, unspecified and at bedtime. chronicity, unspecified gastritis type Additional information carvediloL 25 mg Take 1.5 tablets by 90 tablet 1 11/12/2019 Suspended tabletIndications: mouth 2 (two) times Hypertension, unspecified type daily with meals. Additional information furosemide 80 mg Take 1 tablet by 30 tablet 2 11/12/2019 Suspended tabletIndications: Stage 3 mouth daily. chronic kidney disease Additional information amLODIPine 10 mg Take 1 tablet by 30 tablet 2 11/13/2019 Suspended tabletIndications: mouth daily. Hypertension, unspecified type Additional information documented as of this encounter (statuses as of 11/18/2019) Active Problems Problem Noted Date Intractable nausea and vomiting 11/15/2019 Intractable vomiting 11/07/2019 Vomiting 11/07/2019 General counseling and advice for contraceptive management 05/07/2013 Overview: ICD10 Diagnosis Term Monitoring Engineer Utility Encounter for routine gynecological examination 05/07/2013 Overview: ICD10 Diagnosis Term Monitoring Engineer Utility Type 2 diabetes mellitus without complications 05/07/2013 Overview: 05/07/2013- Diabetes x 10 years. Previously taking po medication. ICD10 Diagnosis Term Monitoring Engineer Utility Rubella immune 05/07/2013 Candidiasis of vulva and vagina 05/07/2013 documented as of this encounter (statuses as of 11/18/2019) Immunizations Name Administration Dates Next Due Rubella [...] on filedocumented in this encounter Progress Notes Lila Hanna RN - 11/18/2019 8:54 [facility] certified pedorthotist, requesting to call the patient and realizing the patient is admitted into thehospital. CM will call the patient at a later time. NIKKO Perry, RN, [facility] Outpatient CouncilpersonTherapy TechnicianHighsmith-Rainey Specialty [facility] O: [phone] M: [phone] documented in this encounter Plan of Treatment [...] 05/07/2020 11/07/2019 LDL-C 11/07/2020 11/07/2019 CREATININE (SERUM) 11/17/2020 11/17/2019, 11/15/2019, 11/12/2019, Additional history exists documented as of this encounter Results Not on filedocumented in this encounter Insurance Payer Benefit Plan / Subscriber ID Effective Dates Phone Address Type Group [facility] FAMILY PL[facility]ING [id number] [address] Agency [employer] MA[employer] [phone] nt [id number] [place] [address] documented as of this encounter
--- OUTSIDE RECORDS SUMMARY | 2019-12-25 06:11 | XMS REPORT | Summary of Care ---
:1980 Author Organization [facility] - [address] [address] Care Team Providers Name Role Phone Liv Khan Primary Care Provider Reason for Visit Reason Comments Transition Of Care Encounter Details Date Type Department Care Team Description 11/13/2019 Transition of Care [facility] Michelle Fisher Transition Of Care Health [facility]- [address] [place] [id number] Allergies No Known Allergiesdocumented as of this encounter (statuses as of 11/13/2019) Medications Medication Sig Dispensed Refills Start Date End Date Status insulin NPH and inject 10 Units 1 Vial 3 11/12/2019 Active regular human 70-30 under the skin 2 100 unit/mL (70-30) (two) times daily injectionIndications: before breakfast Type 2 diabetes and dinner. mellitus with stage 3 chronic kidney disease, with long-term current use of insulin metoclopramide HCl 10 Take 1 tablet by 90 tablet 2 11/12/2019 Active mg tabletIndications: mouth before Gastroparesis meals. ondansetron 8 mg Take 1 tablet by 21 tablet 0 11/12/2019 Active tabletIndications: mouth every 8 Nausea and vomiting, (eight) hours as intractability of needed for Nausea vomiting not and Vomiting specified, unspecified (N/V). vomiting type pantoprazole 40 mg EC Take 1 tablet by 60 tablet 2 11/12/2019 Active tabletIndications: mouth 2 (two) Gastritis without times daily. bleeding, unspecified chronicity, unspecified gastritis type sucralfate 1 gram Take 1 tablet by 120 tablet 2 11/12/2019 Active tabletIndications: mouth before Gastritis without meals and at bleeding, unspecified bedtime. chronicity, unspecified gastritis type carvediloL 25 mg Take 1.5 tablets 90 tablet 1 11/12/2019 Active tabletIndications: by mouth 2 (two) Hypertension, times daily with unspecified type meals. furosemide 80 mg Take 1 tablet by 30 tablet 2 11/12/2019 Active tabletIndications: mouth daily. Stage 3 chronic kidney disease amLODIPine 10 mg Take 1 tablet by 30 tablet 2 11/13/2019 Active tabletIndications: mouth daily. Hypertension, unspecified type documented as of this encounter (statuses as of 11/13/2019) Active Problems Problem Noted Date Intractable vomiting 11/07/2019 Vomiting 11/07/2019 General counseling and advice for contraceptive management 05/07/2013 Overview: ICD10 Diagnosis Term Author Utility Encounter for routine gynecological examination 05/07/2013 Overview: ICD10 Diagnosis Term Author Utility Type 2 diabetes mellitus without complications 05/07/2013 Overview: 05/07/2013- Diabetes x 10 years. Previously taking po medication. ICD10 Diagnosis Term Author Utility Rubella immune 05/07/2013 Candidiasis of vulva and vagina 05/07/2013 documented as of this encounter (statuses as of 11/13/2019) Immunizations Name Administration Dates Next Due Rubella [...] Signs Not on filedocumented in this encounter Plan of Treatment Health [...] 05/07/2020 11/07/2019 LDL-C 11/07/2020 11/07/2019 CREATININE (SERUM) 11/12/2020 11/12/2019, 11/11/2019, 11/10/2019, Additional history exists documented as of this encounter Results Not on filedocumented in this encounter Insurance Payer Benefit Plan / Subscriber ID Effective Dates Phone Address Type Group [facility] FAMILY FAMILY PLANNING [id number] 2013-[address] Agency [employer] [phone] nt [id number] [place] [address] documented as of this encounter
--- OUTSIDE RECORDS SUMMARY | 2019-12-25 06:12 | XMS REPORT | Summary of Care ---
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 Previously taking po medication. 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 Please disregard. documented in this encounter Plan of Treatment [...] Results Not on filedocumented in this encounter Visit Diagnoses Diagnosis ERRONEOUS ENCOUNTER--DISREGARD - Primary documented in this encounter Insurance Payer Benefit Plan / Subscriber ID Effective Dates Phone Address Type Group [facility] FAMILY FAMILY PLANNING [id number] 2013-[address] Agency [employer] [address] [phone] nt [id number] [place] [address] documented as of this encounter
--- OUTSIDE RECORDS SUMMARY | 2019-12-25 06:12 | XMS REPORT | Summary of Care ---
:1980 Author Organization [facility] Address [address] [place] [id number] Care Team Providers Name Role Phone Liv Khan Primary Care Provider Reason for Visit Reason Comments Vomiting Abdominal Pain Auth/Cert Status Reason Specialty Diagnoses / Referred By Referred To Procedures Contact Contact Emergency Medicine [facility]-Emergency Dept [address] [place] [phone] Encounter Details Date Type Department Care Team Description 11/28/2019 Emergency [facility] Tulio Moran Intractable vomiting with nausea, unspecified vomiting type (Primary Dx); Department O, History of diabetic gastroparesis [address] [place] [address] [id number] [place] [address] [id number] Allergies No Known Allergiesdocumented as of this encounter (statuses as of 11/28/2019) Medications Medication Sig Dispensed Refills Start Date End Date Status pantoprazole 40 mg Take 1 tablet by 60 tablet 2 11/12/2019 Active EC mouth 2 (two) tabletIndications: times daily. Gastritis without bleeding, unspecified chronicity, unspecified gastritis type sucralfate 1 gram Take 1 tablet by 120 tablet 2 11/12/2019 Active tabletIndications: mouth before Gastritis without meals and at bleeding, bedtime. unspecified chronicity, unspecified gastritis type carvediloL 25 mg Take 1.5 tablets 90 tablet 1 11/12/2019 Active tabletIndications: by mouth 2 (two) Hypertension, times daily with unspecified type meals. amLODIPine 10 mg Take 1 tablet by 30 tablet 2 11/13/2019 Active tabletIndications: mouth daily. Hypertension, unspecified type furosemide 80 mg Take 0.5 tablets 30 tablet 2 11/21/2019 Active tabletIndications: by mouth daily. Stage 3 chronic kidney disease Polyethylene Glycol Take 2 Packets by 30 Packet 2 11/22/2019 Active 3350 17 gram mouth daily. powderIndications: Intractable nausea and vomiting, Gastroparesis scopolamine Apply 1 Patch to 10 Each 0 11/24/2019 Active transdermal 1 mg area(s) every 72 over 3 days (seventy-two) patchIndications: hours. Intractable nausea and vomiting, Gastroparesis proMETHazine 12.5 mg Insert 1 6 Suppository 1 11/21/2019 Active suppositoryIndicatio Suppository into ns: Intractable rectum every 4 nausea and vomiting, (four) hours as Gastroparesis needed for Nausea and Vomiting (N/V). ondansetron 8 mg Take 1 tablet by 21 tablet 1 11/21/2019 Active tabletIndications: mouth every 8 Nausea and vomiting, (eight) hours as intractability of needed for Nausea vomiting not and Vomiting specified, (N/V). unspecified vomiting type proMETHazine 25 mg Take 1 tablet by 14 tablet 0 11/26/2019 Active tabletIndications: mouth every 6 Intractable nausea (six) hours as and vomiting, needed for Nausea Gastroparesis and Vomiting (N/V) or N/V alternating with Ondansetron. metoclopramide HCl Take 1 tablet by 42 tablet 0 11/26/2019 Active 10 mg mouth before 0 tabletIndications: meals for 14 Gastroparesis days. insulin NPH and inject 13 Units 1 Vial 3 11/26/2019 Active regular human 70-30 under the skin 2 100 unit/mL (70-30) (two) times daily injectionIndications before breakfast : Type 2 diabetes and dinner for 2 mellitus with stage days, THEN 10 3 chronic kidney Units 2 (two) disease, with times daily long-term current before breakfast use of insulin and dinner for 90 days. dexAMETHasone 1 mg Take 3 tablets by 10 tablet 0 11/26/2019 Active tabletIndications: mouth every 0 Intractable nausea evening for 1 and vomiting, day, THEN 2 Gastroparesis tablets every 12 (twelve) hours for 1 day, THEN 1 tablet every 12 (twelve) hours for 1 day, THEN 1 tablet every 24 (twenty-four) hours for 1 day. documented as of this encounter (statuses as of 11/28/2019) Active Problems Problem Noted Date Intractable nausea and vomiting 11/15/2019 Intractable vomiting 11/07/2019 Vomiting 11/07/2019 General counseling and advice for contraceptive management 05/07/2013 Overview: ICD10 Diagnosis Term Walking [employer] Encounter for routine gynecological examination 05/07/2013 Overview: ICD10 Diagnosis Term Walking [employer] Utility Type 2 diabetes mellitus without complications 05/07/2013 Overview: 05/07/2013- Diabetes x 10 years. Previously taking po medication. ICD10 Diagnosis Term Walking [employer] Utility Rubella immune 05/07/2013 Candidiasis of vulva and vagina 05/07/2013 documented as of this encounter (statuses as of 11/28/2019) Immunizations Name Administration Dates Next Due Influenza [...] Sign Reading Time Taken Comments Blood Pressure 148/89 11/28/2019 1:02 PM [employer]KE [employer]ISHER Pulse 80 11/28/2019 1:02 PM [employer] Temperature 36.7 C (98 F) 11/28/2019 11:18 AM [employer]ISHER Respiratory Rate 16 11/28/2019 1:02 PM [employer]ER Oxygen Saturation 97% 11/28/2019 1:02 PM [employer]ER Inhaled Oxygen Concentration - - Weight 69.9 kg (154 lb) 11/28/2019 8:01 AM [employer]ISHER Height - - Body Mass Index 28.12 11/16/2019 1:22 AM [employer]ISHER documented in this encounter Discharge Instructions AttachmentsThe following attachments cannot be sent through Care Everywhere.Gastroparesis, Diabetic (Australian)Diabetic Gastroparesis, Understanding (Australian)documented in this encounter Plan of Treatment Health Maintenance Due Date Last Done Comments VARICELLA VACCINES (1 of 2 - 1982 2-dose childhood series) EYE EXAM 1991 URINE MICROALBUMIN 1991 DTaP,Tdap,and Td Vaccines (1 - 01/28/1992 05/07/2009 Tdap) FOOT EXAM 1999 PAP SMEAR 05/07/2016 05/07/2013, 05/06/2012, 03/08/2011, Additional history exists HgA1C 05/07/2020 11/07/2019 LDL-C 11/07/2020 11/07/2019 CREATININE (SERUM) 11/26/2020 11/26/2019, 11/25/2019, 11/24/2019, Additional history exists INFLUENZA VACCINE Completed 11/21/2019 PNEUMOCOCCAL 0-64 YEARS COMBINED Completed 11/21/2019 SERIES documented as of this encounter Procedures Procedure Name Priority Date/Time Associated Diagnosis Comments COMP. METABOLIC PANEL STAT 11/28/2019 10:32 Intractable vomiting Results for this (35360) AM [employer] with nausea, procedure are in unspecified vomiting the results type section. POCT TEST ELIJAH 11/28/2019 9:39 Intractable vomiting Results for this AM [employer] with nausea, procedure are in unspecified vomiting the results type section. CBC WITH DIFFERENTIAL STAT 11/28/2019 8:40 Intractable vomiting Results for this AM [employer] with nausea, procedure are in unspecified vomiting the results type section. URINALYSIS STAT 11/28/2019 8:40 Intractable vomiting Results for this AM [employer] with nausea, procedure are in unspecified vomiting the results type section. CBC WITH DIFFERENTIAL Routine 11/28/2019 8:40 Intractable vomiting Results for this AM [employer] with nausea, procedure are in unspecified vomiting the results type section. LIPASE STAT 11/28/2019 8:40 Intractable vomiting Results for this AM [employer] with nausea, procedure are in unspecified vomiting the results type section. EKG-12 LEAD Routine 11/28/2019 8:18 AM [employer] FINISHER documented in this encounter Results COMP. METABOLIC PANEL (62730) (11/28/2019 10:32 AM B[employer] FINISHER) NA 131 (L) 135 - 145 [facility] mmol/L SERVICES K 4.0 3.5 - 5.0 [facility] mmol/L SERVICES CL 93 (L) 98 - 108 mmol/L [facility] CO2 TOTAL 30 23 - 31 mmol/L [facility] AGAP 8 2 - 16 [facility] BUN 25 (H) 7 - 23 mg/dL [facility] GLUCOSE 136 (H) 70 - 110 mg/dL [facility] CREATININE 2.07 (H) 0.50 - 1.04 [facility] mg/dL SERVICES TOTAL BILI 0.6 0.1 - 1.1 mg/dL [facility] CALCIUM 9.1 8.6 - 10.6 [facility] mg/dL SERVICES T PROTEIN 5.4 (L) 6.3 - 8.2 g/dL [facility] ALBUMIN 3.3 (L) 3.5 - 5.0 g/dL [facility] ALK PHOS 61 34 - 122 U/L [facility] ALTv 19 5 - 35 U/L [facility] AST(SGOT) 19 13 - 40 U/L [facility] eGFR Calculation 26.8 mL/min/1.73m2 [facility] (Non- SERVICES Citizen Of [place]) eGFR Calculation 32.5 mL/min/1.73m2 [facility] () SERVICES Specimen Blood - VENOUS Narrative Performed At Association of Glomerular Filtration Rate (GFR) and Staging [facility] of Kidney Disease* [...] tests). Performing Organization Address City/State/Zipcode Phone Number [facility] CLIA: [id number], [address] [place] [address] [facility] POCT TEST (11/28/2019 9:39 AM B[employer] FINISHER) POCT PREG Negative On board controls acceptable Present with C Line POCT PREG LOT # [id number] POCT PREG TEST DATE 04-26-2021 Specimen Urine - URINE, CLEAN CATCH CBC WITH DIFFERENTIAL (11/28/2019 8:40 AM [employer] FINISHER) WBC 8.23 4.30 - 11.10 [facility] 10*3/L SERVICES RBC 3.71 (L) 3.93 - 5.25 [facility] 10*6/L SERVICES HGB 10.5 (L) 11.6 - 15.0 [facility] g/dL SERVICES HCT 31.8 (L) 35.7 - 45.2 % [facility] MCV 85.7 80.6 - 95.5 fL [facility] MCH 28.3 25.9 - 32.8 pg [facility] MCHC 33.0 31.6 - 35.1 [facility] g/dL SERVICES RDW-SD 38.4 (L) 39.0 - 49.9 fL [facility] RDW-CV 12.3 12.0 - 15.5 % [facility] PLT 243 166 - 358 [facility] 10*3/L SERVICES MPV 12.1 9.5 - 12.9 fL [facility] NRBC/100 WBC 0.0 0.0 - 10.0 /100 [facility] WBCs SERVICES NRBC x10^3 <0.01 10*3/L [facility] GRAN MAT (NEUT) % 68.4 % [facility] IMM GRAN % 0.40 % [facility] LYMPH % 15.8 % [facility] MONO % 13.7 % [facility] EOS % 1.6 % [facility] BASO % 0.1 % [facility] GRAN MAT x10^3(ANC) 5.63 1.88 - 7.09 [facility] 10*3/uL SERVICES IMM GRAN x10^3 0.03 0.00 - 0.06 [facility] 10*3/uL SERVICES LYMPH x10^3 1.30 (L) 1.32 - 3.29 [facility] 10*3/uL SERVICES MONO x10^3 1.13 (H) 0.33 - 0.92 [facility] 10*3/uL SERVICES EOS x10^3 0.13 0.03 - 0.39 [facility] 10*3/uL SERVICES BASO x10^3 <0.03 0.01 - 0.07 [facility] 10*3/uL SERVICES Specimen Blood - VENOUS Performing Organization Address [facility] Phone Number [facility] CLIA: [id number], [address] [place] [address] [phone] [facility] URINALYSIS (11/28/2019 8:40 AM B[employer] FINISHER) APPEARANCE Clear Clear [facility] COLOR Straw (A) Yellow [facility] PH 8.0 4.8 - 8.0 [facility] SP GRAVITY 1.006 1.003 - 1.030 [facility] GLU U QUAL 50 mg/dL (A) Normal [facility] BLOOD 1+ (A) Negative [facility] KETONES Negative Negative [facility] PROTEIN 100 mg/dL (A) Negative [facility] UROBILIN Normal Normal [facility] BILIRUBIN Negative Negative [facility] NITRITE Negative Negative [facility] [place] EDWARD 25/uL (A) Negative [facility] RBC/HPF 2 0 - 3 HPF [facility] WBC/HPF 4 0 - 5 HPF [facility] BACTERIA Few (A) Negative [facility] MUCOUS Slight (A) Negative LPF [facility] SQ EPITH 2 <=2 HPF [facility] Specimen Urine - URINE, CLEAN CATCH Performing Organization Address [facility] Phone Number [facility] CLIA: [id number], [address] [place] [address] [facility] LIPASE (11/28/2019 8:40 AM B[employer] FINISHER) LIPASE 67Comment: Hemolyzed 0 - 220 U/L [facility] specimen SERVICES Specimen Blood - VENOUS Performing Organization Address [facility] Phone Number [facility] CLIA: [id number], [address] [place] [id number] [facility] documented in this encounter Visit Diagnoses Diagnosis Intractable vomiting with nausea, unspecified vomiting type - Primary History of diabetic gastroparesis Personal history of other endocrine, metabolic, and immunity disorders documented in this encounter Administered Medications Medication Order MAR Action Action Date Dose Rate Site haloperidol lactate (HALDOL) injection 2.5 mg 2.5 mg, Intravenous, PRN - SEE INSTRUCTIONS, 1 dose, Starting 11/28/19 at 1128, Until Discontinued, ELIJAH, Nausea and Vomiting (N/V), nausea and vomiting not improved by reglan Medication Order MAR Action Action Date Dose Rate Site dexamethasone (DECADRON PHOSPHATE) Given 11/28/2019 9:23 AM [employer]ISHER 4 mg injection 4 mg 4 mg, IV Push, ONCE, 1 dose, 11/28/19 at 1000, STAT diphenhydrAMINE (BENADRYL) injection 25 mg Given 11/28/2019 9:24 AM [employer]ISHER 25 mg 25 mg, Slow IV Push, ONCE, 1 dose, 11/28/19 at 1000, STAT famotidine (PEPCID (PF)) injection 20 mg Given 11/28/2019 9:24 AM [employer]ISHER 20 mg 20 mg, Slow IV Push, ONCE, 1 dose, 11/28/19 at 1000, ELIJAH haloperidol lactate (HALDOL) injection 2.5 Given 11/28/2019 10:00 AM [employer] FINISHER 2.5 mg mg 2.5 mg, Intravenous, PRN - SEE INSTRUCTIONS, 1 dose, Starting 11/28/19 at 0850, Until 11/28/19 at 1000, ELIJAH, Nausea and Vomiting (N/V), nausea and vomiting not improved by reglan metoclopramide HCl (REGLAN) injection 10 mg Given 11/28/2019 9:21 AM [employer] FINISHER 10 mg 10 mg, Slow IV Push, ONCE, 1 dose, 11/28/19 at 1000, ELIJAH documented in this encounter Insurance Payer Benefit Plan / Subscriber ID Effective Phone Address Type Group Dates MEDICAID MEDICAID [place] PENDING [phone] P[place] [phone] (Work) [id number] documented as of this encounter"
--- OUTSIDE RECORDS SUMMARY | 2019-12-25 06:16 | XMS REPORT | Summary of Care ---
:1980 Author Organization [facility] - [facility] Address [address] [place] [id number] Care Team Providers Name Role Phone Liv Pandya Primary Care Provider Reason for Referral (Routine) Status Reason Specialty Diagnoses / Referred By Referred To Procedures Contact Contact New Request IM-NEPHROLOGY Diagnoses Stage 3 chronic kidney disease Torrie Morales MD Procedures Discharge Follow-Up: Specialty Service IM-NEPHROLOGY; 4-6 Weeks [address] [place] [address] (Routine) Status Reason Specialty Diagnoses / Referred By Referred To Procedures Contact Contact New Request IM-GASTROENTEROLO Diagnoses Intractable nausea and vomiting Gastroparesis Torrie Morales GY Procedures Discharge Follow-Up: Specialty Service IM-GASTROENTEROLOGY; 2 Weeks Discharge Follow-Up: Specialty Service IM-GASTROENTEROLOGY; 1 Month [address] [place] [address] (ELIJAH) Status Reason Specialty Diagnoses / Referred By Referred To Procedures Contact Contact New Request Diagnoses Intractable nausea and vomiting Gastroparesis Torrie Morales MD Bradley, Stephanie Procedures Discharge Follow-up: PCP LIV PANDYA; 1 Week [address] [place], [place] [address] [phone] [place], [place] Phone: [phone] Phone: (Routine) Status Reason Specialty Diagnoses / Referred By Referred To Procedures Contact Contact Closed Case Management Procedures Nathan Crocker Simon, Mary E, RN CONSULT/REFERRAL [address] [place] [phone] Phone: Reason for Visit Reason Comments Abdominal Pain Vomiting Auth/Cert Status Reason Specialty Diagnoses / Referred By Referred To Procedures Contact Contact Emergency Medicine Ed[facility]Emergency Dept [address] [place] [phone] Encounter Details Date Type Department Care Team Description 11/15/2019 - Hospital Medicine ([address]) Tao Shea MD [address] [place] [phone] Intractable nausea 11/26/2019 Encounter [facility] Waldo De Jesus MD [address] [place] [phone] and vomiting [place], [place] Nathan Crocker MD [address] [place] [phone] Torrie Morales MD [address] [place] [phone] Allergies No Known Allergiesdocumented as of this encounter (statuses as of 11/26/2019) Medications Medication Sig Dispensed Refills Start End Status Date Date pantoprazole 40 mg Take 1 tablet 60 tablet 2 11/12/19 Active EC by mouth 2 20 tabletIndications: (two) times Gastritis without daily. bleeding, unspecified chronicity, unspecified gastritis type sucralfate 1 gram Take 1 tablet 120 tablet 2 11/12/19 Active tabletIndications: by mouth before 20 Gastritis without meals and at bleeding, bedtime. unspecified chronicity, unspecified gastritis type carvediloL 25 mg Take 1.5 90 tablet 1 11/12/19 Active tabletIndications: tablets by 20 Hypertension, mouth 2 (two) unspecified type times daily with meals. amLODIPine 10 mg Take 1 tablet 30 tablet 2 11/13/19 Active tabletIndications: by mouth daily. 20 Hypertension, unspecified type furosemide 80 mg Take 0.5 30 tablet 2 11/21/19 Active tabletIndications: tablets by 20 Stage 3 chronic mouth daily. kidney disease Polyethylene Take 2 Packets 30 Packet 2 11/22/19 Active Glycol 3350 17 by mouth daily. 20 gram powderIndications: Intractable nausea and vomiting, Gastroparesis scopolamine Apply 1 Patch 10 Each 0 11/24/19 Active transdermal 1 mg to area(s) 20 over 3 days every 72 patchIndications: (seventy-two) Intractable nausea hours. and vomiting, Gastroparesis proMETHazine 12.5 Insert 1 6 Suppository 1 11/21/19 Active mg Suppository 20 suppositoryIndicat into rectum ions: Intractable every 4 (four) nausea and hours as needed vomiting, for Nausea and Gastroparesis Vomiting (N/V). ondansetron 8 mg Take 1 tablet 21 tablet 1 11/21/19 Active tabletIndications: by mouth every 20 Nausea and 8 (eight) hours vomiting, as needed for intractability of Nausea and vomiting not Vomiting (N/V). specified, unspecified vomiting type proMETHazine 25 mg Take 1 tablet 14 tablet 0 11/26/19 Active tabletIndications: by mouth every 20 Intractable nausea 6 (six) hours and vomiting, as needed for Gastroparesis Nausea and Vomiting (N/V) or N/V alternating with Ondansetron. metoclopramide HCl Take 1 tablet 42 tablet 0 11/26/19 02//2 Active 10 mg by mouth before 20 020 tabletIndications: meals for 14 Gastroparesis days. insulin NPH and inject 13 Units 1 Vial 3 11/26/19 Active regular human under the skin 20 70-30 100 unit/mL 2 (two) times (70-30) daily before injectionIndicatio breakfast and ns: Type 2 dinner for 2 diabetes mellitus days, THEN 10 with stage 3 Units 2 (two) chronic kidney times daily disease, with before long-term current breakfast and use of insulin dinner for 90 days. dexAMETHasone 1 mg Take 3 tablets 10 tablet 0 11/26/19 Active tabletIndications: by mouth every 020 Intractable nausea evening for 1 and vomiting, day, THEN 2 Gastroparesis tablets every 12 (twelve) hours for 1 day, THEN 1 tablet every 12 (twelve) hours for 1 day, THEN 1 tablet every 24 (twenty-four) hours for 1 day. insulin NPH and inject 10 Units 1 Vial 3 11/12/19 Discontinued regular human under the skin (Reorder) 70-30 100 unit/mL 2 (two) times (70-30) daily before injectionIndicatio breakfast and ns: Type 2 dinner. diabetes mellitus with stage 3 chronic kidney disease, with long-term current use of insulin metoclopramide HCl Take 1 tablet 90 tablet 2 11/12/19 Discontinued 10 mg by mouth before 020 (Reorder) tabletIndications: meals. Gastroparesis ondansetron 8 mg Take 1 tablet 21 tablet 0 11/12/19 Discontinued tabletIndications: by mouth every 020 (Reorder) Nausea and 8 (eight) hours vomiting, as needed for intractability of Nausea and vomiting not Vomiting (N/V). specified, unspecified vomiting type furosemide 80 mg Take 1 tablet 30 tablet 2 11/12/19 Discontinued tabletIndications: by mouth daily. 20 020 (Reorder) Stage 3 chronic kidney disease proMETHazine 25 mg Take 1 tablet 60 tablet 1 11/21/19 Discontinued tabletIndications: by mouth every 020 Intractable nausea 6 (six) hours and vomiting, as needed for Gastroparesis Nausea and Vomiting (N/V) or N/V alternating with Ondansetron. metoclopramide HCl Take 1 tablet 90 tablet 2 11/21/19 Discontinued 10 mg by mouth before 020 (Reorder) tabletIndications: meals. Gastroparesis dexAMETHasone 1 mg Take 2 tablets 7 tablet 0 11/26/19 Discontinued tabletIndications: by mouth every 20 020 (Reorder) Intractable nausea 12 (twelve) and vomiting, hours for 1 Gastroparesis day, THEN 1 tablet every 12 (twelve) hours for 1 day, THEN 1 tablet every 24 (twenty-four) hours for 1 day. documented as of this encounter (statuses as of 11/26/2019) Active Problems Problem Noted Date Intractable nausea and vomiting 11/15/2019 Intractable vomiting 11/07/2019 Vomiting 11/07/2019 General counseling and advice for contraceptive management 05/07/2013 Overview: ICD10 Diagnosis Term Business Excellence Manager Utility Encounter for routine gynecological examination 05/07/2013 Overview: ICD10 Diagnosis Term Business Excellence Manager Utility Type 2 diabetes mellitus without complications 05/07/2013 Overview: 05/07/2013- Diabetes x 10 years. Previously taking po medication. ICD10 Diagnosis Term Business Excellence Manager Utility Rubella immune 05/07/2013 Candidiasis of vulva and vagina 05/07/2013 documented as of this encounter (statuses as of 11/26/2019) Immunizations Name Administration Dates Next Due Influenza [...] Sign Reading Time Taken Comments Blood Pressure 128/67 11/26/2019 3:24 PM PALS NURSE Pulse 85 11/26/2019 3:24 PM PALS NURSE Temperature 36.7 C (98 F) 11/26/2019 3:24 PM PALS NURSE Respiratory Rate 18 11/26/2019 3:24 PM PALS NURSE Oxygen Saturation 94% 11/26/2019 3:24 PM PALS NURSE Inhaled Oxygen Concentration - - Weight 70 kg (154 lb 4.8 oz) 11/26/2019 5:24 AM PALS NURSE Height 157.6 cm (5' 2.05") 11/16/2019 1:22 AM PALS NURSE Body Mass Index 28.18 11/16/2019 1:22 AM PALS NURSE documented in this encounter Discharge Summaries Wendy Jo RN - 11/26/2019 4:10 PM PALS NURSE Care Management Discharge Disposition Note (DCDN) 5-2-1 Interventions: Disease specific education;Intensive medication reconciliation/management;Teachback;Follow-up appointments;Clear discharge plan 5-2-1 Providers: Physician;Dance Entertainer/Division Engineer 5-2-1 Patient Capacity Improvements: Transportation arrangements Discharge [...] resources/referrals made or provided to patient: Resources/Referrals: [facility] Transportation: Private Vehicle Mental Status: Alert & Oriented to Person,Place & Time Living Arrangement: Mobile Home Other living arrangement: Address of living arrangement: [address] [place] [address] [address], [place] [address] Funding Resources: Self Pay Nursing informed of discharge plan: Yes Name of RN informed: WALDEMAR Merritt Estimated discharge date: 11/26/19 Time: Additional Information: Patient will dc home with her daughter, Merna ([phone]). CM provided a Good Rx card to help with prescription assistance. [facility] referral made. INGE/SW Name & Contact number: Wendy Jo RN Ph. [phone] The following information has been provided to the facility noted above: reason for the patient discharge or transfer; patients physical and psychosocial status; summary of care, treatment, servicesprovided to patient; and the patient progress toward goals. documented in this encounter Discharge Instructions AttachmentsThe following attachments cannot be sent through Care Everywhere.Dexamethasone tablets (Kittitian)Promethazine tablets (Kittitian) Metoclopramide tablets (Kittitian)Gastroparesis (Kittitian)documented in this encounter Progress Notes Wendy Jo RN - 11/26/2019 11:54 AM CSTCare Coordinator Update: CM met with patient at the bedside to discuss discharge planning. Per patient she plans to dischargehome with her daughter, who is currently at the bedside. Patient has no needs at this time. CM will submit [facility] referral for outpatient follow up. Wendy Jo RN, BSN Human Resources Office Manager [email or web address] (O) [phone] (C) [phone] Greg Prabhakar MD - 11/25/2019 7:32 AM CST [facility] Team Internal Medicine Progress Note Date of Service: 11/25/2019 07:32 Chief Complaint: nausea, vomiting 24-HOUR EVENTS: - AFVSS - Started Decadron - Nausea resolved SUBJECTIVE: Patient states she's feeling better today. She is significantly less nauseous and feeling mild abdominal pain. She has an appetite and is eating slowly. She endorses feeling her eyes heavier than usual. PHYSICAL EXAM: Vitals: 11/24/19 1546 11/24/19 1908 11/25/19 0041 11/25/19 0414 BP: (!) 146/66 (!) 142/65 (!) 140/64 (!) 148/68 Pulse: 93 95 91 98 Resp: 16 16 16 16 Temp: 37 C (98.6 F) 36.9 C (98.4 F) 36.9 C (98.5 F) 37.2 C (98.9 F) TempSrc: Oral Oral Oral Oral SpO2: 97% 99% 96% 98% Weight: 72 kg (158 lb 11.2 oz) Height: Intake/Output Summary (Last 24 hours) at 11/25/2019 0732 Last data filed at 11/25/2019 0625 Gross per 24 hour Intake 330 ml Output 820 ml Net -490 ml General: alert and oriented; appears comfortable, laying in bed HEENT: NC/AT, MMM&P, trachea midline, mildly edematous Lungs: CTAB, no incr WOB Abdomen: soft; mildly tender to palpation; non-distended; normoactive bowel sounds Extremities: no clubbing, cyanosis; 1+ edema of extremities Skin: No rashes LABS/IMAGING BMP NA (mmol/L) Date Value 11/25/2019 133 (L) K (mmol/L) Date Value 11/25/2019 4.1 CALCIUM (mg/dL) Date Value 11/25/2019 8.9 CL (mmol/L) Date Value 11/25/2019 98 BUN (mg/dL) Date Value 11/25/2019 17 CREATININE (mg/dL) Date Value 11/25/2019 2.03 (H) GLUCOSE (mg/dL) Date Value 11/25/2019 181 (H) CO2 TOTAL (mmol/L) Date Value 11/25/2019 22 (L) ASSESSMENT/PLAN Mercedes Pandey is a 39 year old female admitted to the hospital with: #Persistent intractable N/V - improved; QTc 464ms (11/23/2019) #Recent presumed gastroparesis 2/2 gastritis/duodenitis >Patient's nausea has increased overnight. Patient does not have an appetite and had diarrhea overnight. Has not had recorded fever. Patient has tried several anti-emetic regimens with intermittent efficacy, steroids most helpful. Will begin taper and switch meds to PO - Decadron taper, 3mg bid, then 2, then 1, then 1 daily, then stop - c/w Reglan 10 mg PO TID - c/w Phenergan 25 mg PO q6h prn - c/w Zofran 4 mg PO q6h prn - c/w erythromycin 200mg q8h - c/w pantoprazole 40 mg BID - c/w Miralax - STOP erythromycin and Benadryl #Anasarca #CKD (stage IV) #Hypokalemia >Stable / improved. - gentle diuresis - Strict I/Os and daily weight #HTN #DM > Patient's blood pressure improving upon taking medication. - c/w amlodipine 10 mg qDay and carvedilol 37.5 mg BID - PRN hydralazine 25 mg systolic >185 - c/w home insulin NPH and regular human 70/30 10 units BIDAC - SSI PAIN: Improved Tylenol Stress Ulcer: pantoprazole Code Status: addressed: Full code Washington Cotto, MS4 I personally examined the patient on 11/25/2019 and have verified the MS4's medical student documentation and/or findings, including the history, physical exam, and medical decision making. Additionally, I have personally performed or re-performed the physical exam and medical decision making activities of this patient's evaluation and management service. Lefty Jerez MD Internal Medicine PGY-3 pager: [phone] END OF DAILY PROGRESS NOTE HOSPITAL COURSE Pt recently discharged for N / V who continues to have persistent nausea and vomiting thought to be from gastroparesis and or gastritis / duodenoal ulcers. Improved during admission with medication regimen. Patient not taking reglan at home which could have contributed to patient presentation. Reportscompliance with other medications. Have restarted medications; AP improved but nausea persistent atthis time, GI recommends obtaining gastric emptying study to further evaluate and restart antiemeticregimen afterwards. Nausea and PO tolerance improving at greatly this time with addition of Decadron. NURSE Associated attestation - Torrie Morales MD - 11/25/2019 3:12 PM CSTI personally examined the patient on 11/25/[address] Jerez's resident note as written,including any changes or additions that the resident may have made to Washington Cotto's medical student note with the following addition(s): Pt with significant improvement since starting IV decadron. Will start converting antiemetics to PO and stop erythromycin and Benadryl since they did appear to provide benefit. I actively participated in the decision making process. Please see the resident's note for additional details. Torrie Morales MD Operations Manager/Coordinator Department of Internal Medicine O: C: F: Wendy Jo, WALDEMAR - 11/24/2019 3:25 PM CSTCare Management Continued Stay Assessment LOS Day: 9 Estimated /Planned Discharge Date: 11/26/2019 [facility] female 39 year old Date CM/SW last Face to Face completed with patient/family: 11/24/2019 Funding source: No coverage found. PCP:Liv Pandya Patient/Family/MPOA/Caregiver Engaged with Transitional Care Plan: yes Patient/Family/MPOA/Caregiver concurs with proposed discharge plan: yes Name, Relationship to Patient and contact number of individual acting on behalf of the patient: patient Chief Complaint/Admitting Dx:Intractable Nausea and Vomiting Hospital Problems: Intractable nausea and vomiting Summary of hospital course: per chart, "Pt recently discharged for N / V who continues to havepersistent nausea and vomiting thought to be from gastroparesis and or gastritis / duodenoal ulcers. Improved during admission with medication regimen. Patient not taking reglan at home which could have contributed to patient presentation. Reports compliance with other medications. Have restarted medications; AP improved but nausea persistent at this time, GI recommends obtaining gastric emptying study to further evaluate and restart antiemetic regimen afterwards. Nausea and PO tolerance improving at this time. " CM/SW Interventions/Resources provided: SFA Completed; patient will discharge home with her ,Amarjit ([phone]). No needs at this time CM/SW Interventions/Resources still needed: pending final discharge recs Anticipated Discharge Destination: Home If DC to home, who will support patient: patient's spouse, Amarjit Anticipated DME needs: None Referrals sent: not applicable If no, why/when will referral be sent:: n/a Has patient been accepted: not applicable Revised plan if not accepted: home with family support What is the clinical care happening right now that must be done in the hospital and only the hospital: pending adequate PO intake, adjusting antiemetics, GI final recs. Please addend note following Length of Stay rounds and complete section below Were any recommendations made during LOS rounds on this patient:not applicable If yes, what new recommendations were made at LOS: n/a Wendy Jo RN, BSN Human Resources Office Manager [email or web address] (O) [phone] (C) [phone] Greg Prabhakar MD - 11/24/2019 7:25 AM CST [facility] Team Internal Medicine Progress Note Date of Service: 11/24/2019 07:25 Chief Complaint: nausea, vomiting 24-HOUR EVENTS: - AFVSS - Emesis overnight x1 SUBJECTIVE: Patient states she's feeling nauseated today. She began feeling nauseous in the evening and had an episode of emesis. She also endorses having a large amount of diarrhea x1. Patient noticed that her bilateral upper extremity appear more swollen. Abdominal pain is mild today. Did not have anything to eat yesterday due to loss of appetite. PHYSICAL EXAM: Vitals: 11/23/19 2338 11/24/19 0436 11/24/19 0649 11/24/19 0714 BP: (!) 146/80 (!) 149/77 (!) 169/84 Pulse: 98 102 101 Resp: 17 18 16 Temp: 36.6 C (97.9 F) 36.7 C (98.1 F) 36.9 C (98.4 F) TempSrc: Oral Oral Oral SpO2: 97% 97% 100% Weight: 152 lb 1.6 oz (69 kg) Height: Intake/Output Summary (Last 24 hours) at 11/24/2019 07 Last data filed at 11/24/2019 0406 Gross per 24 hour Intake 1820 ml Output Net 1820 ml General: alert and oriented; appears comfortable, laying in bed HEENT: NC/AT, MMM&P, trachea midline Lungs: CTAB Abdomen: soft; mildly tender to palpation; non-distended; normoactive bowel sounds Extremities: no clubbing, cyanosis; 1+ edema of BUE, no pedal edema Skin: No rashes LABS/IMAGING Reviewed and interpreted by me. ASSESSMENT/PLAN Mercedes Pandey is a 39 year old female admitted to the hospital with: #Persistent intractable N/V - improved; QTc 464ms (11/21/2019) #Recent presumed gastroparesis 2/2 gastritis/duodenitis >Patient's nausea has increased overnight. Patient does not have an appetite and had diarrhea overnight. Has not had recorded fever. Patient has tried several anti-emetic regimens with intermittent efficacy. At this point will be using steroid trial and monitor efficacy. - start Decadron - c/w Reglan 10 mg PO TID - c/w Phenergan 25 mg PO q6h prn - c/w Zofran 4 mg PO q6h prn - c/w erythromycin 200mg q8h - may consider steroids for anti-emetics if nausea/vomiting continues to be refractory - obtain new EKG today to monitor QTc - c/w pantoprazole 40 mg BID - c/w Miralax #Anasarca #CKD (stage IV) #Hypokalemia >Stable / improved. - c/w PO Lasix 40mg daily - Strict I/Os and daily weight #HTN #DM > Patient's blood pressure improving upon taking medication. - c/w amlodipine 10 mg qDay and carvedilol 37.5 mg BID - PRN hydralazine 25 mg systolic >185 - c/w home insulin NPH and regular human 70/30 10 units BIDAC - SSI PAIN: Improved Tylenol Stress Ulcer: pantoprazole Code Status: addressed: Full code Washington Cotto, MS4 I personally examined the patient on 11/24/2019 and have verified the MS4's medical student documentation and/or findings, including the history, physical exam, and medical decision making. Additionally, I have personally performed or re-performed the physical exam and medical decision making activities of this patient's evaluation and management service. Lefty Jerez MD Internal Medicine PGY-3 pager: [phone] END OF DAILY PROGRESS NOTE HOSPITAL COURSE Pt recently discharged for N / V who continues to have persistent nausea and vomiting thought to be from gastroparesis and or gastritis / duodenoal ulcers. Improved during admission with medication regimen. Patient not taking reglan at home which could have contributed to patient presentation. Reportscompliance with other medications. Have restarted medications; AP improved but nausea persistent atthis time, GI recommends obtaining gastric emptying study to further evaluate and restart antiemeticregimen afterwards. Nausea and PO tolerance improving at this time. NURSE Associated attestation - Torrie Morales MD - 11/25/2019 3:09 PM CSTI personally examined the patient on 11/24/[address] Jerez's resident note as written,including any changes or additions that the resident may have made to Washington Cotto's medical student note with the following addition(s): Pt with minimal improvement despite IV erthyromycin, reglan, Iand antiemetics. Will give trial of dexamethasone. Will monitor for increased BG with the steroid and adjust insulin accordingly. I actively participated in the decision making process. Please see theresident's note for additional details. Torrie Morales MD Operations Manager/Coordinator Department of Internal Medicine O: C: F: Andree Sen MD - 11/23/2019 7:25 AM CST I personally examined the patient on 11/23/2019 15:21 and have verified the medical student documentation and/or findings, including the history, physical exam, and medical decision making. Additionally, I have personally performed or re-performed the physical exam and medical decision making activities of this patient's evaluation and management service. I have included any pertinent details in the documentation as deemed clinically necessary. Andree Sen MD Internal Medicine PGY-3 [facility] Team Internal Medicine Progress Note Date of Service: 11/23/2019 07:25 Chief Complaint: nausea, vomiting 24-HOUR EVENTS: - afvss - reports improvement in nausea SUBJECTIVE: Patient states she feels better this morning. She endorses feeling very nauseous last evening with small amount of emesis that has resolved this AM. Currently is minimally nauseous and with mild abdominal pain. She states she's had no appetite and hasn't been eating. Has not had a bowel movement in 3 days. Denies SOB, chest pain, new swelling. PHYSICAL EXAM: Vitals: 11/22/19 1957 11/22/19 2320 11/23/19 0350 11/23/19 0715 BP: (!) 176/86 (!) 168/83 (!) 161/76 (!) 174/82 Pulse: 98 100 99 100 Resp: 18 20 Temp: 37.2 C (99 F) 36.7 C (98.1 F) 36.9 C (98.4 F) 37.2 C (99 F ) TempSrc: Oral Oral Oral Oral SpO2: 100% 98% 98% 99% Weight: Height: Intake/Output Summary (Last 24 hours) at 11/23/2019 0725 Last data filed at 11/23/2019 0608 Gross per 24 hour Intake 1700 ml Output 800 ml Net 900 ml General: alert and oriented; appears comfortable, laying in bed HEENT: NC/AT, MMM&P, trachea midline Lungs: CTAB Abdomen: soft; mildly tender to palpation; non-distended; normoactive bowel sounds Extremities: no clubbing, cyanosis; +1 BLE edema to ankle Skin: No rashes LABS/IMAGING Reviewed and interpreted by me. ASSESSMENT/PLAN Mercedes Pandey is a 39 year old female admitted to the hospital with: #Persistent intractable N/V - improved; QTc 464ms (11/21/2019) #Recent presumed gastroparesis 2/2 gastritis/duodenitis >Patient's nausea and abdominal pain is significantly improved today. Patient does not have an appetite and has been eating minimally with no bowel movements in 3 days. Has not had recorded fever. Patient is currently on anti- emetic regimen that is showing some efficacy. Will continue to encourage patient to eat soft foods. - GI recs: - c/w Reglan 10 mg PO TID - c/w Phenergan 25 mg PO q6h prn - c/w Zofran 4 mg PO q6h prn - c/w erythromycin 200mg q8h - may consider steroids for anti-emetics if nausea/vomiting continues to be refractory - obtain new EKG to monitor QTc - c/w pantoprazole 40 mg BID - c/w Miralax #Anasarca #CKD (stage IV) #Hypokalemia >Stable / improved. - c/w PO Lasix 40mg daily - Strict I/Os and daily weight #HTN #DM > Patient missed her hypertensive medications yesterday due to severe nausea. Will encourage her to take medication today. - c/w amlodipine 10 mg qDay and carvedilol 37.5 mg BID - PRN hydralazine 25 mg systolic >185 - c/w home insulin NPH and regular human 70/30 10 units BIDAC - SSI PAIN: Improved Tylenol Stress Ulcer: pantoprazole Code Status: addressed: Full code Washington Yadiel, MS4 END OF DAILY PROGRESS NOTE HOSPITAL COURSE Pt recently discharged for N / V who continues to have persistent nausea and vomiting thought to be from gastroparesis and or gastritis / duodenoal ulcers. Improved during admission with medication regimen. Patient not taking reglan at home which could have contributed to patient presentation. Reportscompliance with other medications. Have restarted medications; AP improved but nausea persistent atthis time, GI recommends obtaining gastric emptying study to further evaluate and restart antiemeticregimen afterwards. Nausea and PO tolerance improving at this time. NURSE Associated attestation - Torrie Morales MD - 11/23/2019 11:47 PM CSTI personally examined the patient on 11/23/[address] Sen's resident note as written, including any changes or additions that the resident may have made to Washington Cotto's medical student note as written. I actively participated in the decision making process. Please see the resident's note for additional details. Torrie Morales MD Operations Manager/Coordinator Department of Internal Medicine O: C: F: Greg Jerez MD - 11/22/2019 7:00 AM CST [facility] Team Internal Medicine Progress Note Date of Service: 11/22/2019 07:00 Chief Complaint: nausea, vomiting 24-HOUR EVENTS: - AFVSS - Lipase 56 - Nausea worsened o/n SUBJECTIVE: Patient states she's feeling nauseous and has severe abdominal pain this morning. Had an episode ofemesis last evening. Does not feel medication is working and is asking for more pain relieving medication for her abdomen. Has not had a bowel movement in two days. PHYSICAL EXAM: Vitals: 11/21/19 1600 11/21/19 1914 11/21/19 2322 11/22/19 0337 BP: 138/75 (!) 146/74 139/77 (!) 151/89 Pulse: 85 95 86 93 Resp: 18 18 18 18 Temp: 36.9 C (98.4 F) 36.6 C (97.9 F) 36.8 C (98.2 F) 37.1 C ( 98.8 F) TempSrc: Oral Oral Oral Oral SpO2: 92% 93% 96% 98% Weight: Height: Intake/Output Summary (Last 24 hours) at 11/22/2019 0700 Last data filed at 11/21/2019 1900 Gross per 24 hour Intake Output 1400 ml Net -1400 ml General: appears uncomfortable, sitting in bed HEENT: NC/AT, MMM&P, trachea midline Lungs: no incr WOB Abdomen: soft; mildly tender to palpation; non-distended; normoactive bowel sounds Extremities: no clubbing, cyanosis; +1 BLE edema to ankle Skin: No rashes LABS/IMAGING - reviewed, pertinent results as below: BMP NA (mmol/L) Date Value 11/21/2019 132 (L) K (mmol/L) Date Value 11/21/2019 3.2 (L) CALCIUM (mg/dL) Date Value 11/21/2019 8.3 (L) CL (mmol/L) Date Value 11/21/2019 95 (L) BUN (mg/dL) Date Value 11/21/2019 17 CREATININE (mg/dL) Date Value 11/21/2019 2.12 (H) GLUCOSE (mg/dL) Date Value 11/21/2019 125 (H) CO2 TOTAL (mmol/L) Date Value 11/21/2019 30 ASSESSMENT/PLAN Mercedes Pandey is a 39 year old female admitted to the hospital with: #Persistent intractable N/V - improved; QTc 464ms (11/21/2019) #Recent presumed gastroparesis 2/2 gastritis/duodenitis >Patient's nausea and abdominal pain is significantly improved today. Patient has had a loose bowel movement and is starting to eat. Has not had recorded fever. Gastroenterology will defer gastricemptying study at this time and recommend starting patient on empiric gastroparesis regimen. Patient will continue home medications. Pt's nausea now much worse last night and this morning. - GI recs: - c/w Reglan 10 mg PO TID - c/w Phenergan 25 mg PO q6h prn - c/w Zofran 4 mg PO q6h prn - obtain new EKG to monitor QTc - c/w pantoprazole 40 mg BID - Miralax - ADD IV Benadryl - ADD mIVF - ADD erythromycin 200mg q8h - One-time IV Tylenol 1g #Anasarca #CKD (stage IV) #Hypokalemia >Stable / improved. - c/w PO Lasix 40mg daily - Strict I/Os and daily weight #HTN #DM - c/w amlodipine 10 mg qDay and carvedilol 37.5 mg BID - PRN hydralazine 25 mg systolic >185 - c/w home insulin NPH and regular human 70/30 10 units BIDAC - SSI PAIN: Improved Tylenol Stress Ulcer: pantoprazole Code Status: addressed: Full code Washington Cotto, MS4 I personally examined the patient on 11/22/2019 and have verified the MS4's medical student documentation and/or findings, including the history, physical exam, and medical decision making. Additionally, I have personally performed or re-performed the physical exam and medical decision making activities of this patient's evaluation and management service. Lefty Jerez MD Internal Medicine PGY-3 pager: [phone] END OF DAILY PROGRESS NOTE HOSPITAL COURSE Pt recently discharged for N / V who continues to have persistent nausea and vomiting thought to be from gastroparesis and or gastritis / duodenoal ulcers. Improved during admission with medication regimen. Patient not taking reglan at home which could have contributed to patient presentation. Reportscompliance with other medications. Have restarted medications; AP improved but nausea persistent atthis time, GI recommends obtaining gastric emptying study to further evaluate and restart antiemeticregimen afterwards. Nausea and PO tolerance improving at this time. NURSE Associated attestation - Torrie Morales MD - 11/23/2019 11:43 PM CSTI personally examined the patient on 11/23/[address] Jerez's resident note as written,including any changes or additions that the resident may have made to Washington Cotto's medical student note with the following addition(s): continued intractable nausea with worsened abdominal pain. Will start another trial of erythromycin and add IV benadryl for gastroparesis, and IV Tylenol for painuntil patient is able to tolerate PO. I actively participated in the decision making process. Pleasesee the resident's note for additional details. Torrie Morales MD Operations Manager/Coordinator Department of Internal Medicine O: C: F: Greg Jerez MD - 11/21/2019 11:54 AM CST [facility] Team Progress Note Date of Service: 11/21/2019 11:54 Chief Complaint: nausea, vomiting 24-HOUR EVENTS: - Nausea improved - AVSS SUBJECTIVE: Tolerated dinner yesterday. Minimal nausea and AP overnight. Some worsened nausea now this AM. PHYSICAL EXAM: Vitals: 11/20/19 1911 11/20/19 2320 11/21/19 0400 11/21/19 0754 BP: (!) 143/75 (!) 144/69 (!) 140/73 (!) 155/78 Pulse: 87 91 88 84 Resp: 18 18 18 18 Temp: 37.1 C (98.7 F) 37 C (98.6 F) 37 C (98.6 F) 37 C (98.6 F) TempSrc: Oral Oral Oral Oral SpO2: 97% 95% 96% 95% Weight: 68 kg (150 lb) Height: Intake/Output Summary (Last 24 hours) at 11/21/2019 1154 Last data filed at 11/21/2019 0716 Gross per 24 hour Intake 890 ml Output 1350 ml Net -460 ml General: appears mildly uncomfortable, sitting in bed HEENT: NC/AT, MMMP, trachea midline Lungs: no incr WOB Abdomen: soft; mildly tender to palpation; non-distended; normoactive bowel sounds Extremities: no clubbing, cyanosis; +1 BLE edema to ankle Skin: No rashes LABS/IMAGING - reviewed, pertinent results as below: BMP NA (mmol/L) Date Value 11/21/2019 132 (L) K (mmol/L) Date Value 11/21/2019 3.2 (L) CALCIUM (mg/dL) Date Value 11/21/2019 8.3 (L) CL (mmol/L) Date Value 11/21/2019 95 (L) BUN (mg/dL) Date Value 11/21/2019 17 CREATININE (mg/dL) Date Value 11/21/2019 2.12 (H) GLUCOSE (mg/dL) Date Value 11/21/2019 125 (H) CO2 TOTAL (mmol/L) Date Value 11/21/2019 30 ASSESSMENT/PLAN Mercedes Pandey is a 39 year old female admitted to the hospital with: #Persistent intractable N/V - improved #Recent presumed gastroparesis 2/2 gastritis/duodenitis >Patient's nausea and abdominal pain is significantly improved today. Patient has had a loose bowel movement and is starting to eat. Has not had recorded fever. Gastroenterology will defer gastric emptying study at this time and recommend starting patient on empiric gastroparesis regimen. Patient will continue home medications. - GI recs: - c/w Reglan 10 mg PO TID - c/w Phenergan 25 mg PO q6h prn - c/w Zofran 4 mg PO q6h prn - Obtain new EKG to monitor QTc - c/w pantoprazole 40 mg BID - Miralax #Anasarca #CDK (stage IV) #Hypokalemia >Stable/improved. - c/w PO Lasix 40mg daily - Strict I/Os and daily weight #HTN #DM - c/w amlodipine 10 mg QD and carvedilol 37.5 mg BID - hydralazine 25 mg PRN systolic >185 - c/w home insulin NPH and regular human 70/30 10 units BIDAC - SSI PAIN: Improved Tylenol Stress Ulcer: pantoprazole Code Status: addressed: Full code Anticipate d/c today if able to tolerate lunch. Lefty Jerez MD Internal Medicine PGY-3 pager: [phone] END OF DAILY PROGRESS NOTE HOSPITAL COURSE Pt recently discharged for N/V who continues to have persistent nausea and vomiting thought to be from gastroparesis and or gastritis/duodenoal ulcers. Improved during admission with medication regimen. Patient not taking reglan at home which could have contributed to patient presentation. Reports compliance with other medications. Have restarted medications; AP improved but nausea persistent at this time, GI recommends obtaining gastric emptying study to further evaluate and restart antiemetic regimen afterwards. Nausea and PO tolerance improving at this time. NURSE Associated attestation - Torrie Morales MD - 11/23/2019 11:31 PM CSTI personally examined the patient on 11/21/[address] Jerez's resident note with the following addition(s): Pt with improved nausea yesterday but worsened through the day and requiring IV antiemetics. Will keep in house and continue supportive care pending tolerance of PO intake. I actively participated in the decision-making process. Please see the resident's note for additional details. Torrie Morales MD Operations Manager/Coordinator Department of Internal Medicine O: C: F: Bernice Burnette - 11/21/2019 1:00 AM CSTThis patient was in the hospital during an [employer] EMR downtime on November 21, 2019. Additional documentation pertaining to this encounter may be located with the associated scanned documents. [facility] [employer] - 11/20/2019 6:08 PM CST GI Service Progress Note Chief Complaint: Patient has worsening nausea, vomiting SUBJECTIVE/Interval history: Patient doesn't have any vomiting today. Nausea improved but present. Belly pain improved. Tolerated chicken rice this AM. She was started on Reglan orally TID scheduled and zofran/phenergan every 6hrs. CURRENT MEDICATIONS - reviewed. PHYSICAL EXAM: BP (!) 158/73 | Pulse 87 | Temp 37 C (98.6 F) (Oral) | Resp 18 | Ht 1.576 m (5' 2.05") | Wt67.6 kg (149 lb) | SpO2 97% | BMI 27.21 kg/m General : awake and alert, NAD ENT: Moist mucous membranes, pupils equal, EOMI Cardiovascular: RRR, normal S1 and S2, No lower extremity edema Respiratory: Clear to auscultation bilaterally, normal effort, no crackles or wheezing Gastrointestinal: soft, mild tenderness in epigastric region, no distension, normal bowel sounds Psychiatric: oriented x 3, appropriate affect and cognition LABS/IMAGING - reviewed, pertinent results as below: 11/20/2019 05:45 WBC x10^3 5.04 RBC x10^6 2.95 (L) HGB 8.2 (L) HCT 25.8 (L) MCV 87.5 MCH 27.8 MCHC 31.8 RDW-SD 39.8 RDW-CV 12.3 PLT x10^3 129 (L) 11/20/2019 05:45 NA 136 K 3.7 CL 97 (L) CO2 TOTAL 27 AGAP 12 BUN 20 GLUCOSE 133 (H) CREATININE 2.25 (H) CALCIUM 8.3 (L) MAGNESIUM 2.1 ASSESSMENT/PLAN Mercedes Pandey is a 39 year old female Assessment / Plan: Mercedes Pandey is a 39 year old female with episodic nausea, vomiting and abdominal pain with hx of insulin dependent diabetes mellitus type 2: Nausea, vomiting and abdominal pain: Patient has been having flare ups every month since August. Her Diabetes is poorly controlled as indicated by HBA1C of 7.8. Her glucose levels are not terribly high this admission Differential diagnosis is gastroparesis from diabetes vs chronic pancreatitis vs PUD (lipase level high compared to baseline this admission). Patient had recent EGD and is on PPI now. CT abdomen from 11/07/19 did not show any pancreatic atrophy, calcifications or duct dilations. Recommendations: Patient seems to be improving with her symptoms. She is able to tolerate rice this AM and did not have vomiting or belly pain. Discussed with patient about gastroparesis from diabetes as the probable cause of her symptoms and she needs better diabetes control. Please continue Reglan 10 mg orally TID before meals for 21 days (prolonged use of Reglan has been associated with tardive dyskinesias). She should get a break from Reglan for 3-4 weeks and if nausea persists, we can restart for 3 weeks again.Meanwhile, we will follow up in GI clinic/reasess and give further recommendations. Please make sureshe doesn't have issues with insurance for appointments and outpatient GES once her symptoms improve. Please continue zofran and phenergan as needed for nausea. It will take few days for her to improve. In addition, we suggest the following non pharmacologic recommendations: Hydration to avoid electrolyte imbalance (even after going home) as nausea and vomiting can lead to electrolyte imbalance. Avoid fatty, acidic, spicy and high residue diets as these increase overall symptoms in gastroparesis Small and frequent meals ie 5-6 times a day. GI team will sign off. Please contact us with any questions or if clinical condition changes and warrants further evaluation. Follow up appointment (will arrange for it) - 4 weeks Patient seen and discussed with faculty Patel Torrez Dr. Division of Gastroenterology and Hepatology, PGY-4 Pager: [phone] NURSE Associated attestation - Patel Walker MD - 11/20/2019 9:01 PM CSTI personally examined the patient on 11/20/[address] Head's note as written . I actively participated in the decision-making process. Please see the fellow's note for additional details. Patel Walker MD Operations Manager/Coordinator Division of Gastroenterology and Hepatology Pager # [phone] Doctor# [id number] Greg Jerez MD - 11/20/2019 7:00 AM CST [facility] Team Progress Note Date of Service: 11/20/2019 07:00 Chief Complaint: nausea, vomiting 24-HOUR EVENTS: - Tmax 99.4 - GI consulted for intractable nausea, recommended empiric gastroparesis treatment - Vomited once last night SUBJECTIVE: Patient states she's feeling better today. She reports her nausea has significantly decreased and her abdominal pain in mild. She was able to eat soup yesterday and keep it down. Had small amount of diarrhea overnight. Denies new swelling, shortness of breath, or chest pain. PHYSICAL EXAM: Vitals: 11/19/19 1528 11/19/19 1900 11/19/19 2317 11/20/19 0306 BP: (!) 157/77 (!) 161/80 (!) 145/73 (!) 140/75 Pulse: 91 92 89 93 Resp: Temp: 36.7 C (98 F) 36.8 C (98.3 F) 36.9 C (98.5 F) 37.4 C (99.4 F) TempSrc: Oral Oral Oral Oral SpO2: 97% 93% 97% 93% Weight: Height: Intake/Output Summary (Last 24 hours) at 11/20/2019 0700 Last data filed at 11/19/2019 203 Gross per 24 hour Intake 500 ml Output 1175 ml Net -675 ml General: appears in no acute distress; laying in bed; room air HEENT: NC/AT, MMMP, trachea midline Lungs: no incr WOB Abdomen: soft; mildly tender to palpation; non-distended; normoactive bowel sounds Extremities: no clubbing, cyanosis; +1 BLE edema to ankle LABS/IMAGING - reviewed, pertinent results as below: Reviewed and interpreted pertinent. ASSESSMENT/PLAN Mercedes Pandey is a 39 year old female admitted to the hospital with: #Persistent intractable N/V #Abdominal pain, intermittent, ?improving #Leukocytosis likely reactive - resolved #Recent presumed gastroparesis 2/2 gastritis/duodenitis >Patient's nausea and abdominal pain is significantly improved today. Patient has had a loose bowel movement and is starting to eat. Has not had recorded fever. Gastroenterology will defer gastric emptying study at this time and recommend starting patient on empiric gastroparesis regimen. Patient will continue home medications. - GI recs: - c/w Reglan 10 mg IV --> PO TID - c/w Phenergan 12.5 mg IV q6h prn - c/w Zofran 4 mg IV q6h prn - Obtain EKG to monitor QTc - c/w pantoprazole 40 mg BID - Miralax #Anasarca #CDK (stage IV) #Hypokalemia >Edema improving. Will change to IV (given N/V) and re-assess need for lasix daily given not tolerating PO and insensible losses. - lasix 20 IV x1 yesterday; reassess need to repeat daily - Strict I/Os and daily weight #HTN #DM - c/w amlodipine 10 mg QD and carvedilol 37.5 mg BID - hydralazine 25 mg PRN systolic >185 - c/w home insulin NPH and regular human 70/30 10 units BIDAC - SSI PAIN: Improved Tylenol Stress Ulcer: pantoprazole Code Status: addressed: Full code Washington Cotto, MS4 I personally examined the patient on 11/20/2019 and have verified the MS4's medical student documentation and/or findings, including the history, physical exam, and medical decision making. Additionally, I have personally performed or re-performed the physical exam and medical decision making activities of this patient's evaluation and management service. Lefty Jerez MD Internal Medicine PGY-3 pager: [phone] END OF DAILY PROGRESS NOTE HOSPITAL COURSE Pt recently discharged for N/V who continues to have persistent nausea and vomiting thought to be from gastroparesis and or gastritis/duodenoal ulcers. Improved during admission with medication regimen. Patient not taking reglan at home which could have contributed to patient presentation. Reports compliance with other medications. Have restarted medications; AP improved but nausea persistent at this time, GI recommends obtaining gastric emptying study to further evaluate and restart antiemetic regimen afterwards. NURSE Associated attestation - Nathan Crocker MD - 11/20/2019 1:53 PM CSTI personally examined the patient on 11/20/[address] Jerez resident' s note as written,including any changes or additions that the resident may have made to Yadiel's medical student note. I actively participated in the decision making process. Please see the resident's note for additional details. Pt reports significant improvement in n/v today. GI changed courses and recommended empirically treating gastroparesis instead of getting GES. Encouraged patient to ask for prn anti-emetics if she was symptomatic despite the scheduled reglan. Wendy Jo RN - 11/19/2019 3:57 PM CSTCare Management Continued Stay Assessment LOS Day: 4 Estimated /Planned Discharge Date: 11/22/2019 [facility] female 39 year old Date CM/SW last Face to Face completed with patient/family: 11/19/2019 Funding source: No coverage found. PCP:Liv Panday Patient/Family/MPOA/Caregiver Engaged with Transitional Care Plan: yes Patient/Family/MPOA/Caregiver concurs with proposed discharge plan: yes Name, Relationship to Patient and contact number of individual acting on behalf of the patient: patient Chief Complaint/Admitting Dx:Intractable Nausea and Vomiting Hospital Problems: Intractable nausea and vomiting Summary of hospital course: per chart, "Pt recently discharged for N/V who continues to havepersistent nausea and vomiting thought to be from gastroparesis and or gastritis/duodenoal ulcers. Improvedduring admission with medication regimen. Patient not taking reglan at home which could have contributed to patient presentation. Reports compliance with other medications. Have restarted medications;AP improved but nausea persistent at this time, GI recommends obtaining gastric emptying study to further evaluate and restart antiemetic regimen afterwards." CM/SW Interventions/Resources provided: SFA completed; patient lives at home with her spouse, Amarjit ([phone]) and plans to return home upon discharge. CM/SW Interventions/Resources still needed: follow up discharge needs Anticipated Discharge Destination: Home If DC to home, who will support patient: spouse, Amarjit ([phone]) Anticipated DME needs: None Referrals sent: not applicable If no, why/when will referral be sent:: n/a Has patient been accepted: not applicable Revised plan if not accepted: home with family support What is the clinical care happening right now that must be done in the hospital and only the hospital: anti emetics, tolerate PO intake, Gi following Please addend note following Length of Stay rounds and complete section below Were any recommendations made during LOS rounds on this patient:not applicable If yes, what new recommendations were made at LOS: n/a Wendy Jo RN, BSN Human Resources Office Manager [email or web address] (O) [phone] (C) [phone] [facility] [employer] - 11/19/2019 1:35 PM CSTBrief progress notes: Patient seen and examined. She has 2 episodes of vomiting (foamy spits) since this AM. Doesn't have as much belly pain but nausea is persistent. Patient not able to get GES as radiotracer is not available until tomorrow Patient not able to keep anything down as she has severe nausea. Discussed with primary team-- will treat empirically as if this is gastroparesis as recommended yesterday CT head for dizziness (11/10/19) negative. Will discuss with radiology to rule out any central causes. EKG on 11/16/19- QTc 453 millisec. Plan: After Gastric emptying study- Would recommend reglan 10 mg with each meal. Zofran 4 mg IV every 6hrsand phenergan 10 Mg IV every 6hrs. Make sure to overlap zofran and phenergan, that she has some antinausea medication every 3 hrs prn available Will continue to follow Dr. Med Head PGY-4 Division of Gastroenterology and Hepatology Pager: [phone] NURSE Associated attestation - Patel Walker MD - 11/19/2019 5:29 PM CSTI discussed the case on 11/19/[address] Head's brief GI progress note with the following addition(s): given the delay in obtaining a gastric emptying scan and the patient's persistent symptoms, recommend postponing the emptying scan for now and just proceeding with empiric treatment for gastroparesis. Continue Reglan 10 mg IV tid scheduled for prokinetic effect. Phenergan dosing should be 12.5 mg IV q6h prn and Zofran dosing should be 4 mg IV q6h prn, recommend staggering these medications so she can receive something every 3 hours if she needs. Monitor QTc interval for any prolongation while on these medications. Use clear liquid diet and advance to low-residue diet with small/frequent meals once she is able to tolerate. She can have a gastric emptying scan electively outpatient for confirmation if needed once her acute episode resolves. If her symptoms persist then EUS can be considered in the future to evaluate for any subtle features to suggest chronic pancreatitis. I actively participated in the decision-making process. Please see the fellow's note for additional details. Patel Walker MD Operations Manager/Coordinator Division of Gastroenterology and Hepatology Pager # [phone] Doctor# [id number] Andree Sen MD - 11/19/2019 6:56 AM CST I personally examined the patient on 11/19/2019 13:28 and have verified the medical student documentation and/or findings, including the history, physical exam, and medical decision making. Additionally, I have personally performed or re-performed the physical exam and medical decision making activities of this patient's evaluation and management service. I have included any pertinent details in the documentation as deemed clinically necessary. Andree Sen MD Internal Medicine PGY-3 [facility] Team Progress Note Date of Service: 11/19/2019 06:57 Chief Complaint: nausea, vomiting 24-HOUR EVENTS: - Tmax 98.7 - GI consulted for intractable nausea, recommended gastric emptying study - Vomited once this AM SUBJECTIVE: Patient states she continues to be nauseous this morning and has an episode of emesis. She experienced abdominal pain last evening, but feels minimal pain at the moment. Denies chest pain, shortness ofbreath, or new swelling. PHYSICAL EXAM: Vitals: 11/18/19 1535 11/18/19 1923 11/18/19 2300 11/19/19 0300 BP: (!) 156/78 (!) 158/76 (!) 151/75 (!) 149/74 Pulse: 96 94 94 98 Resp: 18 18 18 18 Temp: 37.1 C (98.7 F) 36.7 C (98.1 F) 36.7 C (98 F) 36.9 C (98.5 F) TempSrc: Oral Oral Oral Oral SpO2: 95% 94% 95% 96% Weight: Height: Intake/Output Summary (Last 24 hours) at 11/19/2019 0657 Last data filed at 11/19/2019 0535 Gross per 24 hour Intake 1660 ml Output 2100 ml Net -440 ml General: appears in no acute distress; laying in bed HEENT: NC/AT, MMM Lungs: clear to auscultation bilaterally, no incr WOB Cardio: S1, S2 normal; no murmurs, rubs or gallops Abdomen: soft; mildly tender to palpation; non-distended; normoactive bowel sounds Extremities: no clubbing, cyanosis; +1 BLE edema to ankle LABS/IMAGING - reviewed, pertinent results as below: Reviewed and interpreted pertinent. ASSESSMENT/PLAN Mercedes Pandey is a 39 year old female admitted to the hospital with: #Persistent intractable N/V #Abdominal pain, intermittent, ?improving #Leukocytosis likely reactive - resolved #Recent presumed gastroparesis 2/2 gastritis/duodenitis >Patient continues to experience heavy nausea despite multiple antiemetic trials. Abdominal pain has subsided and is minimal this morning. Patient has not had a bowel movement in several days, but has had no appetite so eating/ drinking minimally. Has not had recorded fever. Gastroenterology would like to obtain a gastric emptying study to assess for gastroparesis and then start her on antiemetic regimen. Patient will continue home medications. - GI recs: d/c reglan for now, obtain gastic emptying study (discussed with nuclear and will order radiotracer for tomorrow 11/20) - schedule phenergan 25 q4H with zofran prn back-up - hold all opiates and anti-emetics at 2359 tonight for gastric emptying study - EKG to monitor QTc - c/w pantoprazole 40 mg BID - d/c sucralfate 1 g ac and QHS - Miralax #Anasarca #CDK (stage IV) #Hypokalemia >Edema improving. Will change to IV (given N/V) and re-assess need for lasix daily given not tolerating PO and insensible losses. - d/c PO Lasix 40 mg BID - lasix 20 IV x1 today; reassess need to repeat daily - Strict I/Os and daily weight #HTN #DM - c/w amlodipine 10 mg QD and carvedilol 37.5 mg BID - hydralazine 25 mg PRN systolic >185 - c/w home insulin NPH and regular human 70/30 10 units BIDAC - SSI PAIN: Improved Tylenol Stress Ulcer: pantoprazole Code Status: addressed: Full code Washington Cotto, MS4 END OF DAILY PROGRESS NOTE HOSPITAL COURSE Pt recently discharged for N/V who continues to have persistent nausea and vomiting thought to be from gastroparesis and or gastritis/duodenoal ulcers. Improved during admission with medication regimen. Patient not taking reglan at home which could have contributed to patient presentation. Reports compliance with other medications. Have restarted medications; AP improved but nausea persistent at this time, GI recommends obtaining gastric emptying study to further evaluate and restart antiemetic regimen afterwards. NURSE Associated attestation - Nathan Crocker MD - 11/19/2019 1:48 PM CSTI personally examined the patient on 11/19/[address] Sen resident's note as written, including any changes or additions that the resident may have made to Yadiel's medical student note. Iactively participated in the decision making process. Please see the resident's note for additional details. Pt continues to complain of unchanged n/v despite being trialed on a # of different anti-emetics. GI consulted yesterday and recommendation was to hold reglan and get gastric emptying scan (during admission). In the mean time, will schedule phenergan and have zofran available between doses. GIconsidering EUS if gastric emptying study unremarkable. Med Head MBBS - 11/18/2019 6:24 PM CST Gastroenterology Inpatient Consult Note Date: 11/18/2019 Name: Mercedes Pandey : 1980 PCP: Liv Pandya Consult by: Michel Reason for consult: Nausea, vomiting and abdominal pain HPI: Mercedes Pandey is a 39 year old female comes with persistent nausea, vomiting and abdominal pain. She was recently admitted for similar complaints, had CT abdomen showed results as below and wasdischarged home on 11/12/19. She comes back 3 days later with worsening symptoms and is being admitted again. Her main symptom is persistent nausea, associated with vomitings (non bloody) and abdominal pain. No aggravating or relieving factors. She is on multiple nausea medications which are not helping her. vomiting whenever she tries to eat , 10 minutes after she eats. Has epigastric belly pain, no radiation, 8-9/10 in intensity and sharp in nature. She has been having these symptoms since August in episodic fashion, was seen by GI at [facility] and had endoscopy which showed gastritis and duodenitis and started on PPI. But her pain has not improved. She doesn't have constipation. She had CT renal protocol at [facility] which showed atrophic pancreas but CT at [facility] did not specify the same. Patient has hx of gall stone disease and got Cholecystectomy in the past. She doesn't drink alcohol. No fever or chills. No melena, bright red blood per rectum. She was getting narcotics which were stopped now and currently she is on reglan TID before meals, phenergan one dose, erythromycin one dose. PMHx: Past Medical History: Diagnosis Date Abnormal finding on Pap smear, ASCUS 03/08/2011 Hpv was negative Blood transfusion, without reported diagnosis 1999 Candidiasis of vulva and vagina 05/07/2013 CKD (chronic kidney disease) Diabetes mellitus pt is on insulin NPH per pcp(type 2 diabetes) PSurgical Hx: Past Surgical History: Procedure Laterality Date ABDOMEN SURGERY PROC UNLISTED 2000 I&D of a fluid fill pocket in the pancreas CHOLECYSTECTOMY 2000 Family Hx: Family History Problem Relation Age of Onset Hypertension Mother Diabetes Sister Arthritis NoFHx Asthma NoFHx defects NoFHx Colon Cancer NoFHx Ovarian Cancer NoFHx Uterine Cancer NoFHx Breast Cancer NoFHx Cancer NoFHx Depression NoFHx Genetic NoFHx Heart NoFHx High cholesterol NoFHx Psychiatry NoFHx Neurological NoFHx Osteoporosis NoFHx Social Hx: Social History Socioeconomic History Marital status: Spouse name: Not on file Number of children: 1 Years of education: 6 Highest education level: Not on file Occupational History Occupation: none Social Needs Financial resource strain: Not on file Food insecurity: Worry: Not on file Inability: Not on file Transportation needs: Medical: Not on file Non-medical: Not on file Tobacco Use Smoking status: Never Smoker Smokeless tobacco: Never Used Substance and Sexual Activity Alcohol use: No Drug use: No Sexual activity: Yes Partners: Male control/protection: None Comment: 2 weeks ago Lifestyle Physical activity: Days per week: Not on file Minutes per session: Not on file Stress: Not on file Relationships Social connections: Talks on phone: Not on file Gets together: Not on file Attends gnosticist service: Not on file Active member of club or organization: Not on file Attends meetings of clubs or organizations: Not on file Relationship status: Not on file Intimate partner violence: Fear of current or ex partner: Not on file Emotionally abused: Not on file Physically abused: Not on file Forced sexual activity: Not on file Other Topics Concern Service Not Asked Blood Transfusions Yes Caffeine Concern Not Asked Occupational Exposure Not Asked Hobby Hazards Not Asked Sleep Concern Not Asked Stress Concern Not Asked Weight Concern Not Asked Special Diet Not Asked Back Care Not Asked Exercise Not Asked Bike Helmet Not Asked Seat Belt Not Asked Self-Exams Not Asked Social History Narrative Pt states her gnosticist preference is Adventist Lives with family No domestic violence or abuse Medications: Current Facility-Administered Medications: insulin NPH (HUMULIN N) injection 7 Units, 0.1 Units/kg, Subcutaneous, QAM+ HS, Greg Jerez MD insulin regular human (HUMULIN R) injection 3 Units, 3 Units, Subcutaneous , BID MEALS, Greg Jerez MD ondansetron (ZOFRAN (PF)) injection 4 mg, 4 mg, Slow IV Push, Q6HPRN, Greg Jerez MD, 4 mg at 11/18/19 1227 scopolamine transdermal (TRANSDERM-SCOP) patch 1.5 mg, 1.5 mg, Topical, Q72H, Greg Jerez MD, 1.5 mg at 11/18/19 0910 furosemide (LASIX) tablet 40 mg, 40 mg, Oral, QAM+PM, Greg Jerez MD, 40 mg at 11/18/19 0914 hydrALAZINE (APRESOLINE) tablet 25 mg, 25 mg, Oral, Q6HPRN, Greg Jerez MD Polyethylene Glycol 3350 (MIRALAX) powder 34 g, 34 g, Oral, DAILY, Greg Jerez MD proMETHazine (PHENERGAN) 25 mg in NaCl 0.9% (NS) 50 mL piggyback, 25 mg, IV Piggyback, Q4HPRN, Andree Sen MD, 25 mg at 11/17/19 2312 acetaminophen (TYLENOL) tablet 650 mg, 650 mg, Oral, Q6HPRN, Irineo Swan MD amLODIPine (NORVASC) tablet 10 mg, 10 mg, Oral, DAILY, Irineo Swan MD, 10 mg at 11/18/19 0914 carvediloL (COREG) tablet 37.5 mg, 37.5 mg, Oral, BID MEALS, Irineo Swan MD, 37.5 mg at 11/18/19 0914 heparin (porcine) injection 5,000 Units, 5,000 Units, Subcutaneous, Q8H, Irineo Swan MD, 5,000 Units at 11/18/19 1502 metoclopramide HCl (REGLAN) 10 mg in NaCl 0.9% (NS) piggyback, 10 mg, IV Piggyback, Q6H ABX, Greg Jerez MD, 10 mg at 11/18/19 1459 pantoprazole (PROTONIX) 40 mg in NaCl 0.9% (NS) 100 mL MINI-BAG, 40 mg, IV Piggyback, Q12H, Greg Jerez MD, 40 mg at 11/18/19 0915 Sliding Scale Insulin-Regular + Fsbg Testing, , Subcutaneous, AC+HS, Irineo Swan MD, Stopped at 11/18/19 1130 sucralfate (CARAFATE) tablet 1 g, 1 g, Oral, AC+HS, Irineo Swan MD, 1 g at 11/18/200814 ROS: General: (-) fever, (-) chills, (-) weight change, (-) dizziness, (-) lightheadedness, (-) decreasedappetite, (-) fatigue Skin: (-) rash, (-) lesion HEENT: (-) headache, (-) nasal discharge, (-) sore throat, (-) vision changes Neck: (-) pain Heme: (-) bleeding disorder Resp: (-) cough, (-) shortness of breath Cardio: (-) chest pain, (-) palpitations, (-) leg edema GI: per HPI : (-) dysuria, (-) hematuria Neuro: (-) numbness, (-) tingling FERNANDO: (-) muscle pain, (-) joint pain Psych: (-) depressed mood PE: BP (!) 156/78 | Pulse 96 | Temp 37.1 C (98.7 F) (Oral) | Resp 18 | Ht 1.576 m (5' 2.05") | Wt 67.6 kg (149 lb) | SpO2 95% | BMI 27.21 kg/m General: Patient is comfortable and in no acute distress, alert, awake Head: normocephalic Eye: no scleral icterus, no conjunctival pallor, EOMI Neck: No rigidity, supple, trachea midline Cardiovascular: normal S1,S2, no murmur/rub/gallop. No lower extremity edema Respiratory: Chest was clear to ausculation, bilaterally. No wheezes or crackles were heard Gastrointestinal: Soft, epigastric tenderness, non distended No hepatomegaly Skin: Normal skin turgor, no rashes, bruising, petechiae or excoriations. Neurologic: Oriented x 3, motor and sensory are grossly intact Psychiatric: appropriate affect and cognition. Labs - reviewed Recent Results (from the past 24 hour(s)) POCT GLUCOSE (AUTOMATED) Collection Time: 11/17/19 8:33 PM Result Value Ref Range POCT GLU 153 (H) 70 - 110 mg/dL Basic Metabolic Panel (NA, K, CL, CO2, GLUCOSE, BUN, CREATININE, CA) Collection Time: 11/18/19 3:25 AM Result Value Ref Range NA 138 135 - 145 mmol/L K 3.2 (L) 3.5 - 5.0 mmol/L CL 95 (L) 98 - 108 mmol/L CO2 TOTAL 31 23 - 31 mmol/L AGAP 12 2 - 16 BUN 24 (H) 7 - 23 mg/dL GLUCOSE 143 (H) 70 - 110 mg/dL CREATININE 2.32 (H) 0.50 - 1.04 mg/dL CALCIUM 8.6 8.6 - 10.6 mg/dL eGFR Calculation (Non-) 23.5 mL/min/1.73m2 eGFR Calculation () 28.5 mL/min/1.73m2 CBC WITH DIFFERENTIAL Collection Time: 11/18/19 3:25 AM Result Value Ref Range WBC 6.71 4.30 - 11.10 10*3/L RBC 2.97 (L) 3.93 - 5.25 10*6/L HGB 8.6 (L) 11.6 - 15.0 g/dL HCT 27.3 (L) 35.7 - 45.2 % MCV 91.9 80.6 - 95.5 fL MCH 29.0 25.9 - 32.8 pg MCHC 31.5 (L) 31.6 - 35.1 g/dL RDW-SD 42.3 39.0 - 49.9 fL RDW-CV 12.6 12.0 - 15.5 % PLT 141 (L) 166 - 358 10*3/L MPV 12.1 9.5 - 12.9 fL NRBC/100 WBC 0.0 0.0 - 10.0 /100 WBCs NRBC x10^3 <0.01 10*3/L GRAN MAT (NEUT) % 78.0 % IMM GRAN % 0.30 % LYMPH % 10.7 % MONO % 10.0 % EOS % 0.4 % BASO % 0.6 % GRAN MAT x10^3(ANC) 5.23 1.88 - 7.09 10*3/uL IMM GRAN x10^3 <0.03 0.00 - 0.06 10*3/uL LYMPH x10^3 0.72 (L) 1.32 - 3.29 10*3/uL MONO x10^3 0.67 0.33 - 0.92 10*3/uL EOS x10^3 0.03 0.03 - 0.39 10*3/uL BASO x10^3 0.04 0.01 - 0.07 10*3/uL POCT GLUCOSE (AUTOMATED) Collection Time: 11/18/19 8:27 AM Result Value Ref Range POCT GLU 173 (H) 70 - 110 mg/dL POCT GLUCOSE (AUTOMATED) Collection Time: 11/18/19 12:44 PM Result Value Ref Range POCT GLU 165 (H) 70 - 110 mg/dL POCT GLUCOSE (AUTOMATED) Collection Time: 11/18/19 5:03 PM Result Value Ref Range POCT GLU 206 (H) 70 - 110 mg/dL Imaging - reviewed Xr Chest 1 Vw Result Date: 11/07/2019 Mild pulmonary vascular congestion. Preliminary Report Dictated by Resident: Beny Rodríguez MD., have reviewed this study and agree with the above report. Ct Abdomen Pelvis Wo Contrast Result Date: 11/07/2019 No acute abdominopelvic abnormality. Interval worsening of anasarca, including small-volume perihepatic ascites, moderate body wall edema and bilateral pleural effusions. Preliminary Report Dictated byResident: Oyintonye L Odogwu I , Beny Bezold, MD., have reviewed this study and agree with the above report. Ct Head Wo Contrast Result Date: 11/10/2019 Impression: No acute intracranial abnormality. Preliminary Report Dictated by Resident: Luis Alberto Baugh I, Meghann Ridley MD., have reviewed this study and agree with the above report. Us Retroperitoneal Complete Result Date: 11/07/2019 Unremarkable renal ultrasound. Preliminary Report Dictated by Resident: Summer Hayes I, Gonzalo Rush MD., have reviewed this study and agree with the above report. Xr Kub Result Date: 11/10/2019 No radiographic evidence of acute abdominopelvic abnormality. Preliminary Report Dictated by Resident: Melissa Sanchez I, Walter Gómez MD., have reviewed this study and agree with the above report. Endoscopy 11/04/2019 Esophagitis, gastritis/erosions, duodenitis Assessment / Plan: Mercedes Pandey is a 39 year old female with episodic nausea, vomiting and abdominal pain with hx of insulin dependent diabetes mellitus type 2: Nausea, vomiting and abdominal pain: Patient has been having flare ups every month since August. Her Diabetes is poorly controlled as indicated by HBA1C of 7.8. Her glucose levels are not terribly high this admission Differential diagnosis is gastroparesis from diabetes vs chronic pancreatitis vs PUD (lipase level high compared to baseline this admission). Patient had recent EGD and is on PPI now. CT abdomen from 11/07/19 did not show any pancreatic atrophy, calcifications or duct dilations. Recommendations: Discontinue Reglan today as this is not helping her. Please order gastric emptying study. Aware she got narcotics until yesterday and Reglan until now. But her ongoing symptoms makes us believe it would still be abnormal. Better diabetes control. After Gastric emptying study- Would recommend reglan 10 mg with each meal. Zofran 4 mg IV every 6hrsand phenergan 10 Mg IV every 6hrs. Make sure to overlap zofran and phenergan, that she has some antinausea medication every 3 hrs prn available. Also please get EKG to look for QTc interval in case wehave to start erythromycin as prokinetic (if reglan doesn't work). If gastric emptying study is negative, we need to do further imaging studies to look for any pancreatic etiology. (EUS) Patient seen and discussed with faculty, Patel Marshall Gastroenterology & Hepatology, PGY-4 Pager [phone] NURSE Associated attestation - Patel Walker MD - 11/19/2019 5:18 PM CSTI personally examined the patient on 11/18/[address] Head's note with the followingaddition(s): dosing for Phenergan should be 12.5 mg q6h prn, not 10 mg q6h prn. I actively participated in the decision-making process. Please see the fellow's note for additional details. Patel Walker MD Operations Manager/Coordinator Division of Gastroenterology and Hepatology Pager # [phone] Doctor# [id number] Greg Jerez MD - 11/18/2019 6:54 AM CST [facility] Internal Medicine PGY-3 Progress Note Date of Service: 11/18/2019 06:55 Chief Complaint: nausea, vomiting 24-HOUR EVENTS: - Tmax 98.8 - Vomited once this AM SUBJECTIVE: Patient states that she's feeling about the same as yesterday. She reports that her nausea has not subsided and that no medications have relieved her symptoms. She continues to vomit, most recently this morning. She believes that her abdominal pain has subsided and feels minimal pain now. Denies SOB, chest pain, or new swelling. Has not been eating or drinking much fluid due to nausea and lack of appetite. PHYSICAL EXAM: Vitals: 11/17/19 1531 11/17/19 1911 11/17/19 2311 11/18/19 0318 BP: (!) 172/84 (!) 144/70 (!) 152/75 (!) 163/74 Pulse: 101 94 96 99 Resp: 18 18 Temp: 36.7 C (98 F) 36.6 C (97.9 F) 37.1 C (98.8 F) 36.9 C (98.4 F) TempSrc: Oral Oral Oral Oral SpO2: 95% 93% 93% 94% Weight: Height: Intake/Output Summary (Last 24 hours) at 11/18/2019 0655 Last data filed at 11/17/2019 2317 Gross per 24 hour Intake 580 ml Output 1990 ml Net -1410 ml General: appears in no acute distress; sits up occasionally due to nausea HEENT: NC/AT, MMM Lungs: clear to auscultation bilaterally, no incr WOB Cardio: S1, S2 normal; no murmurs, rubs or gallops Abdomen: soft; mildly tende to palpation; non-distended; normoactive bowel sounds Extremities: no clubbing, cyanosis; +1 BLE edema to ankle LABS/IMAGING - reviewed, pertinent results as below: CBC WBC x10^3 (/uL) Date Value 05/07/2013 7.4 WBC (10*3/L) Date Value 11/18/2019 6.71 RBC x10^6 (/uL) Date Value 05/07/2013 4.65 RBC (10*6/L) Date Value 11/18/2019 2.97 (L) PLT x10^3 (/uL) Date Value 05/07/2013 229 PLT (10*3/L) Date Value 11/18/2019 141 (L) HGB Date Value 11/18/2019 8.6 g/dL (L) 05/07/2013 13.9 G/DL HCT (%) Date Value 11/18/2019 27.3 (L) 05/07/2013 41.5 ASSESSMENT/PLAN Mercedes Pandey is a 39 year old female admitted to the hospital with: Intractable N/V - ongoing Abdominal pain - improving Leukocytosis - resolved Recent presumed gastroparesis 2/2 gastritis/duodenitis Patient continues to experience heavy nausea despite multiple antiemetic trials. Abdominal pain has subsided and is minimal this morning. Patient has not had a bowel movement in several days, but has not been eating or drinking due to nausea. Has not had recorded fever and leukocytosis continues to beresolved. Will prescribe patient scopolamine patch and tigan injection and monitor efficacy. Patientwill continue home medications. - c/w pantoprazole 40 mg BID - c/w reglan 10 mg qid - start scopolamine transdermal 1.5 mg patch once - start tigan 200 mg once - c/w IV phenergan 25 mg Q4HPRN - c/w sucralfate 1 g ac and QHS - Miralax Anasarca CDK (stage IV) Patient with presumed diabetic nephropathy during previous admission. Exhibits mild edema of the legs that is significantly reduced from previous admission. Today edema is minimal on oral diuretic. - c/w PO Lasix 40 mg BID - Strict I/Os and daily weight HTN DM - c/w amlodipine 10 mg QD and carvedilol 37.5 mg BID - c/w home insulin NPH and regular human 70/30 10 units BIDAC - SSI PAIN: Improved Tylenol Stress Ulcer: pantoprazole Code Status: addressed: Full code [place] Cotto, MS4 I personally examined the patient on 11/18/2019 and have verified the MS4's medical student documentation and/or findings, including the history, physical exam, and medical decision making. Additionally, I have personally performed or re-performed the physical exam and medical decision making activities of this patient's evaluation and management service. Lefty Jerez MD Internal Medicine PGY-3 pager: [phone] END OF DAILY PROGRESS NOTE HOSPITAL COURSE Pt recently discharged for N/V who continues to have persistent nausea and vomiting thought to be from gastroparesis and or gastritis/duodenoal ulcers. Improved during admission with medication regimen. Patient not taking reglan at home which could have contributed to patient presentation. Reports compliance with other medications. Have restarted medications; AP improved but nausea persistent at this time so will continue other antiemetic regimens and monitor for resolution of nausea.Electronically signed by Nathan Crocker MD at 2019 12:02 PM PALS NURSE Associated attestation - Nathan Crocker MD - 11/18/2019 12:02 PM CSTI personally examined the patient on 11/18/[address] Jerez resident' s note as written,including any changes or additions that the resident may have made to Yadiel's medical student note. I actively participated in the decision making process. Please see the resident's note for additional details. Pt continues to complain of severe n/v despite being on a number of IV anti- emetics (reglan, zofran, phenergan) and getting IV PPI BID. Will continue scheduled reglan and add scopolamine patch + prn Tigan. If no significant improvement in symptoms then will consider GI consult. Of note, edema improving significantly on po lasix 40mg BID. Noel Arce RN - 11/17/2019 2:51 PM Obi FUNES Ariel, MD, after reviewing this case with the Dance Entertainer, I concur this case is appropriate for inpatient admission. The change to inpatient admission is based on the level of care this patient is receiving, medical necessity, risks associated and the expected duration of stay. The inpatient admission order has been entered. Greg Prabhakar MD - 11/17/2019 6:57 AM CST Michel Team Internal Medicine PGY-3 Progress Note Date of Service: 11/17/2019 06:57 Chief Complaint: nausea, vomiting 24-HOUR EVENTS: - Tmax 99.4 - HR 93-110 - Vomited once o/n SUBJECTIVE: Patient states she's feeling slightly better today. She has minimal abdominal pain, but continues toexperience heavy nausea and had one episode of emesis yesterday evening. Has not gone to the restroom in several days and is unsure if passing gas. Denies fever, new swelling, chest pain, or shortness of breath. Has not been eating or drinking due to lack of appetite. Edema improved. PHYSICAL EXAM: Vitals: 11/16/19 1546 11/16/19 1924 11/17/19 0006 11/17/19 0433 BP: (!) 145/73 (!) 141/69 (!) 177/85 (!) 145/72 Pulse: 93 95 106 95 Resp: 20 16 18 18 Temp: 37.1 C (98.8 F) 37.4 C (99.4 F) 37.1 C (98.8 F) 36.8 C ( 98.2 F) TempSrc: Oral Oral Oral Oral SpO2: 90% 92% 98% 91% Weight: Height: Intake/Output Summary (Last 24 hours) at 11/17/2019 0657 Last data filed at 11/17/2019 0256 Gross per 24 hour Intake Output 1430 ml Net -1430 ml General: appears in no acute distress; sits up occasionally due to nausea HEENT: NC/AT, MMM Lungs: clear to auscultation bilaterally, no incr WOB Cardio: S1, S2 normal; no murmurs, rubs or gallops Abdomen: soft; mildly tende to palpation; non-distended; normoactive bowel sounds Extremities: no clubbing, cyanosis; +1 BLE edema to ankle LABS/IMAGING - reviewed, pertinent results as below: CBC WBC x10^3 (/uL) Date Value 05/07/2013 7.4 WBC (10*3/L) Date Value 11/17/2019 7.06 RBC x10^6 (/uL) Date Value 05/07/2013 4.65 RBC (10*6/L) Date Value 11/17/2019 3.04 (L) PLT x10^3 (/uL) Date Value 05/07/2013 229 PLT (10*3/L) Date Value 11/17/2019 160 (L) HGB Date Value 11/17/2019 8.7 g/dL (L) 05/07/2013 13.9 G/DL HCT (%) Date Value 11/17/2019 27.9 (L) 05/07/2013 41.5 ASSESSMENT/PLAN Mercedes Pandey is a 39 year old female admitted to the hospital with: Intractable N/V Abdominal pain - improved Leukocytosis - improved Recent presumed gastroparesis 2/2 gastritis/duodenitis Patient continues to experience heavy nausea but has minimal abdominal pain. Patient has not had a bowel movement in 3 days and will be given miralax while put on bland diet to promote bowel evacuation. Has not had recorded fever with improved reactive leukocytosis. At the moment patient continues to improve with prescribed home medications and will monitor nausea. - c/w pantoprazole 40 mg BID; switch to IV - c/w reglan 10 mg qid - trial of IV compazine 10 mg once - c/w IV phenergan 25 mg Q4HPRN - c/w sucralfate 1 g ac and QHS - Miralax Anasarca CDK (stage IV) Patient with presumed diabetic nephropathy during previous admission. Exhibits mild edema of the legs that is significantly reduced from previous admission. Today edema continues to improve on inpatient diuretic regimen. - IV Lasix 40 mg BID - Strict I/Os and daily weight HTN DM - c/w amlodipine 10 mg QD and carvedilol 37.5 mg BID - c/w home insulin NPH and regular human 70/30 10 units BIDAC - SSI PAIN: Improved Tylenol Stress Ulcer: pantoprazole Code Status: addressed: Full code [place] Cotto, MS4 I personally examined the patient on 11/17/2019 and have verified the MS4's medical student documentation and/or findings, including the history, physical exam, and medical decision making. Additionally, I have personally performed or re-performed the physical exam and medical decision making activities of this patient's evaluation and management service. Lefty Jerez MD Internal Medicine PGY-3 pager: [phone] END OF DAILY PROGRESS NOTE HOSPITAL COURSE Pt recently discharged for N/V who continues to have persistent nausea and vomiting thought to be from gastroparesis and or gastritis/duodenoal ulcers. Improved during admission with medication regimen. Patient not taking reglan at home which could have contributed to patient presentation. Reports compliance with other medications. Have restarted medications; AP improved but nausea persistent at this time.Electronically signed by Nathan Crocker MD at 2019 11:13 AM PALS NURSE Associated attestation - Nathan Crocker MD - 11/17/2019 11:13 AM CSTI personally examined the patient on 11/17/[address] Jerez resident' s note as written,including any changes or additions that the resident may have made to Yadiel's medical student note. I actively participated in the decision making process. Please see the resident's note for additional details. Abdominal pain now resolved, still with significant n/v (improved). Will continue scheduled and prn anit-emetics, also IV ppi. Will transition lasix from IV to po. Jad Zhong MSW - 11/16/2019 10:20 AM CSTCare Management Social Functional Assessment Patient Name: Mercedes Pandey Age: [age] year old Sex: female Patient's Previous Admission Date at [facility]: 11/07/2019 Current diagnosis and co-morbidities: Intractable Nausea and Vomiting Readmission Questions: Was patient discharged from any acute care hospital within the last 30 days: Yes Were all questions regarding previous illness/diagnosis answered prior to discharge: Yes Did you have any difficulties with your discharge instructions: No Were you able to go to your follow-up discharge appointments: (n/a) Any difficulties after discharge with medications: No Any difficulties after discharge with transportation: No Any difficulties after discharge with physical conditions, support, or other limitations?: No Did patient refuse services that were recommended on the previous admission: No Was patient non-compliant with the previously recommended treatment: No If admitted from the ED did you call your primary MD or place a sick call/ request with your provider?: N/A Social Functional Assessment: Primary language spoken/preferred: Kittitian Mental Status: Alert & Oriented to Person,Place & Time Information given by: Self Patient's support system: Spouse Name and number of support system: Amarjit Pandey, ; Carlyn Ellis, sister [phone] Primary Apprentice Jockey: Self MPOA: No Living Arrangement: Mobile Home Address of living arrangement : [address] [place] [address] Persons living in home: Self;Spouse Barriers to returning home: None Baseline functional status- ambulation: Independent Functional status-baseline personal care: Independent Baseline functional status- driving: Independent Baseline functional status- grocery shopping: Independent Functional status-baseline housekeeping: Independent Functional status-baseline meal prep: Independent Current functional status same as prior: Yes Do you have a PCP?: Yes Name of PCP: LIV PANDYA Home Health Care Agency: No Provider Services: No DME Company: No Equipment: None Community resources utilized: [facility] Indigent Health Care Program;[facility] Resources Fact Sheet;Prescription Assistance Program(s)(Pt given information about these services on her last admission recently.) Funding Resources: Self Pay Prescription coverage plan: Self Pay Pharmacy where meds are filled: Other Other pharmacy: [facility] Anticipated services prior to disharge: Continue Medical Eval Expected mode of discharge transportation: Personal vehicle;Same as support system Additional info required for discharge planning: Pending medical evaluation Recommended discharge plan: Home SFA Complete: Social Functional Assessment complete: Yes Alcohol Use Screening (AUDIT-C) How often do you have a drink containing alcohol?: Never SCORE: 0 Role of Care Management explained. Olman Zhong LCSW Division Engineer [facility] [phone] signed by Jad Zhong MSW at 11/16/2019 10:21 AM Greg Prabhakar MD - 11/16/2019 7:51 AM CST Michel [facility]ector Internal Medicine Progress Note Date of Service: 11/16/2019 07:51 Chief Complaint: nausea, vomiting 24-HOUR EVENTS: - Admitted to Michel Team - Tmax 98.8 - HR 105-110s SUBJECTIVE: Patient appears nauseated during exam and states she's not feeling good this morning. She endorses having severe nausea with some moderate abdominal pain. She has not eaten in the last 2 days and has been passing gas, but hasn't had a bowel movement. She denies any fevers, chills, sweating, vomiting, or diarrhea. Per family member, she has been feeling warm, but has no recorded fevers. Family member also states that her current leg swelling has improved from 3 days ago. PHYSICAL EXAM: Vitals: 11/15/19 2016 11/15/19 2229 11/16/19 0122 11/16/19 0438 BP: (!) 182/105 (!) 147/88 (!) 166/82 (!) 169/88 Pulse: 105 104 108 110 Resp: Temp: 37.1 C (98.8 F) 37 C (98.6 F) TempSrc: Oral Oral SpO2: 98% 97% 93% 95% Weight: 154 lb 5.2 oz (70 kg) 149 lb (67.6 kg) Height: 5' 2.05" (1.576 m) Intake/Output Summary (Last 24 hours) at 11/16/2019 0751 Last data filed at 11/16/2019 0500 Gross per 24 hour Intake Output 660 ml Net -660 ml General: ill-appearing, position Lungs: clear to auscultation bilaterally, no incr WOB Cardio: S1, S2 normal; no murmurs, rubs or gallops Abdomen: soft; tender to palpation; non-distended; normoactive bowel sounds Extremities: no clubbing, cyanosis; +1-2 BLE edema to mid-shins LABS/IMAGING - reviewed, pertinent results as below: Reviewed and interpreted. ASSESSMENT/PLAN Mercedes Pandey is a 39 year old female admitted to the hospital with: Intractable N/V Abdominal pain Leukocytosis, suspected reactive to pain and nausea; afebrile Recent presumed gastroparesis 2/2 Gastritis/duodenitis Patient continues to endorse severe nausea and abdominal pain that may be from ongoing gastritis/duodenitis. Patient has not had a bowel movement in 2 days and is unsure if taking reglan at home. Has not had recorded fever despite leukocytosis. At the moment medication compliance unknown so continue with home medications and monitor. - c/w pantoprazole 40 mg BID; switch to IV - c/w reglan 10 mg qid - c/w phenergan and zofran - c/w sucralfate 1 g ac and QHS - repeat CBC this PM to assess leukocytosis Anasarca CDK (stage IV) Patient with presumed diabetic nephropathy during previous admission. Exhibits mild edema of the legs that is significantly reduced from previous admission. Will continue with inpatient diuretic regimen. - IV Lasix 40 mg BID - Strict I/Os and daily weight HTN DM - c/w amlodipine 10 mg QD and carvedilol 37.5 mg BID - c/w home insulin NPH and regular human 70/30 10 units BIDAC - SSI PAIN: Improved Tylenol Stress Ulcer: pantoprazole Code Status: addressed: Full code [place]to, MS4 I personally examined the patient on 11/16/2019 and have verified the MS4's medical student documentation and/or findings, including the history, physical exam, and medical decision making. Additionally, I have personally performed or re-performed the physical exam and medical decision making activities of this patient's evaluation and management service. Lefty Jerez MD Internal Medicine PGY-3 pager: [phone] END OF DAILY PROGRESS NOTE HOSPITAL COURSE Pt recently discharged for N/V who continues to have persistent nausea and vomiting thought to be from gastroparesis and or gastritis/duodenoal ulcers. Improved during admission with medication regimen. Patient not taking reglan at home which could have contributed to patient presentation. Reports compliance with other medications. Will restart medications. Monitor leukocytosis. NURSE Associated attestation - Nathan Crocker MD - 11/17/2019 8:25 AM CSTI personally examined the patient on 11/16/[address] Jerez resident' s note as written,including any changes or additions that the resident may have made to Yadiel's medical student note. I actively participated in the decision making process. Please see the resident's note for additional details. Mercedes Pandey is a 39 year old female with hx of nephrotic syndrome, uncontrolled IDDM, gastritis, and recent admission for gastritis +/- gastroparesis who is admitted for recurrent n/v and epigastric pain. Unclear as to why symptoms recurred but possibly poor medication compliance. Per history, patient's does not remember patient taking reglan. Have restarted patient on IV anti-emetics (scheduled reglan), IV ppi, and IV lasix. documented in this encounter Plan of Treatment Name Type Priority Associated Diagnoses Date/Time [facility]YL[facility]I LAB Routine 11/25/2019 4:33 PM PALS NURSE ANTIGEN, FECAL BY EIA Name Type Priority Associated Order Schedule Diagnoses EKG-12 LEAD ROUTINE HEART STATION Routine ONCE for 1 Occurrences starting 11/16/2019 until 11/16/2019 CBC with Differential LAB Routine EVERY MORNING AT 0400 for 12 Occurrences starting 11/17/2019 until 11/28/2019, 8 completed Basic Metabolic Panel LAB Routine EVERY MORNING AT 0400 (NA, K, CL, CO2, for 12 Occurrences GLUCOSE, BUN, starting 11/17/2019 CREATININE, CA) until 11/28/2019, 10 completed EKG-12 LEAD ROUTINE HEART STATION Routine ONCE for 1 Occurrences starting 11/18/2019 until 11/18/2019 EKG-12 LEAD ROUTINE HEART STATION ELIJAH ONCE for 1 Occurrences starting 11/19/2019 until 11/19/2019 EKG-12 LEAD ROUTINE HEART STATION ELIJAH ONCE for 1 Occurrences starting 11/21/2019 until 11/21/2019 CBC WITH DIFFERENTIAL LAB Routine Once for 1 Occurrences starting 11/22/2019 until 11/22/2019 EKG-12 LEAD ROUTINE HEART STATION ELIJAH ONCE for 1 Occurrences starting 11/23/2019 until 11/23/2019 HELICOBACTER PYLORI LAB Routine ONCE for 1 ANTIGEN, FECAL BY EIA Occurrences starting 11/23/2019 until 11/23/2019 EKG-12 LEAD ROUTINE HEART STATION STAT ONCE for 1 Occurrences starting 11/24/2019 until 11/24/2019 MAGNESIUM LAB Routine EVERY MORNING AT 0400 until discontinued starting 11/26/2019, 1 completed CBC WITH DIFFERENTIAL LAB Routine Once for 1 Occurrences starting 11/26/2019 until 11/26/2019 Health Maintenance Due Date Last Done Comments VARICELLA VACCINES (1 of 2 - 1982 2-dose childhood series) EYE EXAM 1991 URINE MICROALBUMIN 1991 DTaP,Tdap,and Td Vaccines (1 - 01/28/1992 05/07/2009 Tdap) FOOT EXAM 1999 PAP SMEAR 05/07/2016 05/07/2013, 05/06/2012, 03/08/2011, Additional history exists HgA1C 05/07/2020 11/07/2019 LDL-C 11/07/2020 11/07/2019 CREATININE (SERUM) 11/25/2020 11/25/2019, 11/24/2019, 11/23/2019, Additional history exists INFLUENZA VACCINE Completed 11/21/2019 PNEUMOCOCCAL 0-64 YEARS COMBINED Completed 11/21/2019 SERIES documented as of this encounter Procedures Procedure Name Priority Date/Time Associated Diagnosis Comments POCT GLUCOSE Routine 11/26/2019 12:15 Results for this (AUTOMATED) PM PALS NURSE procedure are in the results section. POCT GLUCOSE Routine 11/26/2019 8:02 Results for this (AUTOMATED) AM PALS NURSE procedure are in the results section. BASIC METABOLIC Routine 11/26/2019 5:17 Results for this PANEL (NA, K, CL, AM PALS NURSE procedure are in CO2, GLUCOSE, BUN, the results CREATININE, CA) section. MAGNESIUM Routine 11/26/2019 5:17 Results for this AM PALS NURSE procedure are in the results section. POCT GLUCOSE Routine 11/25/2019 8:41 Results for this (AUTOMATED) PM PALS NURSE procedure are in the results section. POCT GLUCOSE Routine 11/25/2019 5:55 Results for this (AUTOMATED) PM PALS NURSE procedure are in the results section. POCT GLUCOSE Routine 11/25/2019 1:09 Results for this (AUTOMATED) PM PALS NURSE procedure are in the results section. POCT GLUCOSE Routine 11/25/2019 8:27 Results for this (AUTOMATED) AM PALS NURSE procedure are in the results section. CBC WITH Routine 11/25/2019 6:11 Results for this DIFFERENTIAL AM PALS NURSE procedure are in the results section. CBC WITH Routine 11/25/2019 6:11 Results for this DIFFERENTIAL AM PALS NURSE procedure are in the results section. BASIC METABOLIC Routine 11/25/2019 6:11 Results for this PANEL (NA, K, CL, AM PALS NURSE procedure are in CO2, GLUCOSE, BUN, the results CREATININE, CA) section. POCT GLUCOSE Routine 11/24/2019 10:33 Results for this (AUTOMATED) PM PALS NURSE procedure are in the results section. POCT GLUCOSE Routine 11/24/2019 8:27 Results for this (AUTOMATED) PM PALS NURSE procedure are in the results section. POCT GLUCOSE Routine 11/24/2019 4:50 Results for this (AUTOMATED) PM PALS NURSE procedure are in the results section. CBC WITH Routine 11/24/2019 3:29 Results for this DIFFERENTIAL PM PALS NURSE procedure are in the results section. CBC WITH Routine 11/24/2019 3:29 Results for this DIFFERENTIAL PM PALS NURSE procedure are in the results section. POCT GLUCOSE Routine 11/24/2019 12:33 Results for this (AUTOMATED) PM PALS NURSE procedure are in the results section. EKG-12 LEAD Routine 11/24/2019 8:30 AM PALS NURSE POCT GLUCOSE Routine 11/24/2019 8:14 Results for this (AUTOMATED) AM PALS NURSE procedure are in the results section. BASIC METABOLIC Routine 11/24/2019 6:32 Results for this PANEL (NA, K, CL, AM PALS NURSE procedure are in CO2, GLUCOSE, BUN, the results CREATININE, CA) section. ALBUMIN Add-on 11/24/2019 6:32 Results for this AM PALS NURSE procedure are in the results section. POCT GLUCOSE Routine 11/23/2019 11:37 Results for this (AUTOMATED) PM PALS NURSE procedure are in the results section. POCT GLUCOSE Routine 11/23/2019 8:39 Results for this (AUTOMATED) PM PALS NURSE procedure are in the results section. POCT GLUCOSE Routine 11/23/2019 4:46 Results for this (AUTOMATED) PM PALS NURSE procedure are in the results section. POCT GLUCOSE Routine 11/23/2019 12:22 Results for this (AUTOMATED) PM PALS NURSE procedure are in the results section. POCT GLUCOSE Routine 11/23/2019 11:56 Results for this (AUTOMATED) AM PALS NURSE procedure are in the results section. POCT GLUCOSE Routine 11/23/2019 8:26 Results for this (AUTOMATED) AM PALS NURSE procedure are in the results section. EKG-12 LEAD Routine 11/23/2019 6:51 AM PALS NURSE CBC WITH Routine 11/23/2019 5:33 Results for this DIFFERENTIAL AM PALS NURSE procedure are in the results section. CBC WITH Routine 11/23/2019 5:33 Results for this DIFFERENTIAL AM PALS NURSE procedure are in the results section. BASIC METABOLIC Routine 11/23/2019 5:33 Results for this PANEL (NA, K, CL, AM PALS NURSE procedure are in CO2, GLUCOSE, BUN, the results CREATININE, CA) section. MAGNESIUM Routine 11/23/2019 5:33 Results for this AM PALS NURSE procedure are in the results section. POCT GLUCOSE Routine 11/22/2019 9:24 Results for this (AUTOMATED) PM PALS NURSE procedure are in the results section. POCT GLUCOSE Routine 11/22/2019 4:49 Results for this (AUTOMATED) PM PALS NURSE procedure are in the results section. POCT GLUCOSE Routine 11/22/2019 1:04 Results for this (AUTOMATED) PM PALS NURSE procedure are in the results section. POCT GLUCOSE Routine 11/22/2019 10:31 Results for this (AUTOMATED) AM PALS NURSE procedure are in the results section. BASIC METABOLIC Routine 11/22/2019 6:22 Results for this PANEL (NA, K, CL, AM PALS NURSE procedure are in CO2, GLUCOSE, BUN, the results CREATININE, CA) section. MAGNESIUM Routine 11/22/2019 6:22 Results for this AM PALS NURSE procedure are in the results section. LIPASE Add-on 11/22/2019 6:22 Results for this AM PALS NURSE procedure are in the results section. POCT GLUCOSE Routine 11/21/2019 8:47 Results for this (AUTOMATED) PM PALS NURSE procedure are in the results section. POCT GLUCOSE Routine 11/21/2019 5:45 Results for this (AUTOMATED) PM PALS NURSE procedure are in the results section. EKG-12 LEAD Routine 11/21/2019 4:31 PM PALS NURSE POCT GLUCOSE Routine 11/21/2019 12:39 Results for this (AUTOMATED) PM PALS NURSE procedure are in the results section. POCT GLUCOSE Routine 11/21/2019 11:15 Results for this (AUTOMATED) AM PALS NURSE procedure are in the results section. POCT GLUCOSE Routine 11/21/2019 9:54 Results for this (AUTOMATED) AM PALS NURSE procedure are in the results section. POCT GLUCOSE Routine 11/21/2019 8:37 Results for this (AUTOMATED) AM PALS NURSE procedure are in the results section. CBC WITH Routine 11/21/2019 5:57 Results for this DIFFERENTIAL AM PALS NURSE procedure are in the results section. CBC WITH Routine 11/21/2019 5:57 Results for this DIFFERENTIAL AM PALS NURSE procedure are in the results section. BASIC METABOLIC Routine 11/21/2019 5:57 Results for this PANEL (NA, K, CL, AM PALS NURSE procedure are in CO2, GLUCOSE, BUN, the results CREATININE, CA) section. MAGNESIUM Routine 11/21/2019 5:57 Results for this AM PALS NURSE procedure are in the results section. POCT GLUCOSE Routine 11/20/2019 9:08 Results for this (AUTOMATED) PM PALS NURSE procedure are in the results section. POCT GLUCOSE Routine 11/20/2019 5:02 Results for this (AUTOMATED) PM PALS NURSE procedure are in the results section. POCT GLUCOSE Routine 11/20/2019 11:52 Results for this (AUTOMATED) AM PALS NURSE procedure are in the results section. POCT GLUCOSE Routine 11/20/2019 9:45 Results for this (AUTOMATED) AM PALS NURSE procedure are in the results section. CBC WITH Routine 11/20/2019 5:45 Results for this DIFFERENTIAL AM PALS NURSE procedure are in the results section. CBC WITH Routine 11/20/2019 5:45 Results for this DIFFERENTIAL AM PALS NURSE procedure are in the results section. BASIC METABOLIC Routine 11/20/2019 5:45 Results for this PANEL (NA, K, CL, AM PALS NURSE procedure are in CO2, GLUCOSE, BUN, the results CREATININE, CA) section. MAGNESIUM Routine 11/20/2019 5:45 Results for this AM PALS NURSE procedure are in the results section. BASIC METABOLIC Routine 11/19/2019 10:11 Results for this PANEL (NA, K, CL, PM PALS NURSE procedure are in CO2, GLUCOSE, BUN, the results CREATININE, CA) section. MAGNESIUM Routine 11/19/2019 10:11 Results for this PM PALS NURSE procedure are in the results section. POCT GLUCOSE Routine 11/19/2019 9:13 Results for this (AUTOMATED) PM PALS NURSE procedure are in the results section. POCT GLUCOSE Routine 11/19/2019 4:39 Results for this (AUTOMATED) PM PALS NURSE procedure are in the results section. POCT GLUCOSE Routine 11/19/2019 1:39 Results for this (AUTOMATED) PM PALS NURSE procedure are in the results section. EKG-12 LEAD Routine 11/19/2019 11:06 AM PALS NURSE POCT GLUCOSE Routine 11/19/2019 9:11 Results for this (AUTOMATED) AM PALS NURSE procedure are in the results section. CBC WITH Routine 11/19/2019 5:07 Results for this DIFFERENTIAL AM PALS NURSE procedure are in the results section. CBC WITH Routine 11/19/2019 5:07 Results for this DIFFERENTIAL AM PALS NURSE procedure are in the results section. BASIC METABOLIC Routine 11/19/2019 5:07 Results for this PANEL (NA, K, CL, AM PALS NURSE procedure are in CO2, GLUCOSE, BUN, the results CREATININE, CA) section. MAGNESIUM Routine 11/19/2019 5:07 Results for this AM PALS NURSE procedure are in the results section. POCT GLUCOSE Routine 11/18/2019 8:51 Results for this (AUTOMATED) PM PALS NURSE procedure are in the results section. POCT GLUCOSE Routine 11/18/2019 6:23 Results for this (AUTOMATED) PM PALS NURSE procedure are in the results section. POCT GLUCOSE Routine 11/18/2019 5:03 Results for this (AUTOMATED) PM PALS NURSE procedure are in the results section. POCT GLUCOSE Routine 11/18/2019 12:44 Results for this (AUTOMATED) PM PALS NURSE procedure are in the results section. EKG-12 LEAD Routine 11/18/2019 8:54 AM PALS NURSE POCT GLUCOSE Routine 11/18/2019 8:27 Results for this (AUTOMATED) AM PALS NURSE procedure are in the results section. CBC WITH Routine 11/18/2019 3:25 Results for this DIFFERENTIAL AM PALS NURSE procedure are in the results section. CBC WITH Routine 11/18/2019 3:25 Results for this DIFFERENTIAL AM PALS NURSE procedure are in the results section. BASIC METABOLIC Routine 11/18/2019 3:25 Results for this PANEL (NA, K, CL, AM PALS NURSE procedure are in CO2, GLUCOSE, BUN, the results CREATININE, CA) section. POCT GLUCOSE Routine 11/17/2019 8:33 Results for this (AUTOMATED) PM PALS NURSE procedure are in the results section. POCT GLUCOSE Routine 11/17/2019 5:18 Results for this (AUTOMATED) PM PALS NURSE procedure are in the results section. POCT GLUCOSE Routine 11/17/2019 12:15 Results for this (AUTOMATED) PM PALS NURSE procedure are in the results section. POCT GLUCOSE Routine 11/17/2019 10:00 Results for this (AUTOMATED) AM PALS NURSE procedure are in the results section. POCT GLUCOSE Routine 11/17/2019 8:42 Results for this (AUTOMATED) AM PALS NURSE procedure are in the results section. CBC WITH Routine 11/17/2019 4:46 Results for this DIFFERENTIAL AM PALS NURSE procedure are in the results section. CBC WITH Routine 11/17/2019 4:46 Results for this DIFFERENTIAL AM PALS NURSE procedure are in the results section. BASIC METABOLIC Routine 11/17/2019 4:46 Results for this PANEL (NA, K, CL, AM PALS NURSE procedure are in CO2, GLUCOSE, BUN, the results CREATININE, CA) section. MAGNESIUM Add-on 11/17/2019 4:46 Results for this AM PALS NURSE procedure are in the results section. POCT GLUCOSE Routine 11/16/2019 10:05 Results for this (AUTOMATED) PM PALS NURSE procedure are in the results section. POCT GLUCOSE Routine 11/16/2019 4:54 Results for this (AUTOMATED) PM PALS NURSE procedure are in the results section. CBC WITH Routine 11/16/2019 2:36 Results for this DIFFERENTIAL PM PALS NURSE procedure are in the results section. CBC WITH Routine 11/16/2019 2:36 Results for this DIFFERENTIAL PM PALS NURSE procedure are in the results section. POCT GLUCOSE Routine 11/16/2019 12:14 Results for this (AUTOMATED) PM PALS NURSE procedure are in the results section. POCT GLUCOSE Routine 11/16/2019 8:52 Results for this (AUTOMATED) AM PALS NURSE procedure are in the results section. EKG-12 LEAD Routine 11/16/2019 1:49 AM PALS NURSE EKG-12 LEAD Routine 11/16/2019 1:49 AM PALS NURSE URINALYSIS STAT 11/15/2019 8:40 Vomiting, Results for this PM PALS NURSE intractability of procedure are in vomiting not the results specified, presence of section. nausea not specified, unspecified vomiting type ACUTE CARE VENOUS STAT 11/15/2019 5:52 Vomiting, Results for this BLOOD GAS PM PALS NURSE intractability of procedure are in vomiting not the results specified, presence of section. nausea not specified, unspecified vomiting type CBC WITH STAT 11/15/2019 5:46 Vomiting, Results for this DIFFERENTIAL PM PALS NURSE intractability of procedure are in vomiting not the results specified, presence of section. nausea not specified, unspecified vomiting type EXTRA TUBE ORANGE STAT 11/15/2019 5:46 PM PALS NURSE CBC WITH Routine 11/15/2019 5:46 Vomiting, Results for this DIFFERENTIAL PM PALS NURSE intractability of procedure are in vomiting not the results specified, presence of section. nausea not specified, unspecified vomiting type COMP. METABOLIC STAT 11/15/2019 5:46 Vomiting, Results for this PANEL ([id number]) PM PALS NURSE intractability of procedure are in vomiting not the results specified, presence of section. nausea not specified, unspecified vomiting type TEST, STAT 11/15/2019 5:46 Vomiting, Results for this SERUM PM PALS NURSE intractability of procedure are in vomiting not the results specified, presence of section. nausea not specified, unspecified vomiting type MAGNESIUM STAT 11/15/2019 5:46 Vomiting, Results for this PM PALS NURSE intractability of procedure are in vomiting not the results specified, presence of section. nausea not specified, unspecified vomiting type LIPASE STAT 11/15/2019 5:46 Vomiting, Results for this PM PALS NURSE intractability of procedure are in vomiting not the results specified, presence of section. nausea not specified, unspecified vomiting type PHOSPHORUS STAT 11/15/2019 5:46 Vomiting, Results for this PM PALS NURSE intractability of procedure are in vomiting not the results specified, presence of section. nausea not specified, unspecified vomiting type POCT GLUCOSE Routine 11/15/2019 5:10 Results for this (AUTOMATED) PM PALS NURSE procedure are in the results section. documented in this encounter Results POCT GLUCOSE (AUTOMATED) (11/26/2019 12:15 PM PALS NURSE) POCT GLU 254 (H) 70 - 110 mg/dL [facility] Specimen Blood Performing Organization Address [facility] Phone Number [facility] CLIA: [id number], [address] [address] [phone] [facility] POCT GLUCOSE (AUTOMATED) (11/26/2019 8:02 AM PALS NURSE) POCT GLU 268 (H) 70 - 110 mg/dL [facility] Specimen Blood Narrative Performed At Notified Provider [facility] Performing Organization Address City/[facility]/Zipcode Phone Number [facility] CLIA: [id number], [address] [address] [phone] [facility] MAGNESIUM (11/26/2019 5:17 AM PALS NURSE) MAGNESIUM 1.8 1.7 - 2.4 mg/dL [facility] Specimen Blood - ARM, LEFT Performing Organization Address City/State/Zipcode Phone Number [facility] CLIA: [id number], [address] [place] [address] [facility] Basic Metabolic Panel (NA, K, CL, CO2, GLUCOSE, BUN, CREATININE, CA) (2019 5:17 AM PALS NURSE) NA 129 (L) 135 - 145 [facility] mmol/L SERVICES K 4.2 3.5 - 5.0 [facility] mmol/L SERVICES CL 95 (L) 98 - 108 mmol/L [facility] CO2 TOTAL 26 23 - 31 mmol/L [facility] AGAP 8 2 - 16 [facility] BUN 22 7 - 23 mg/dL [facility] GLUCOSE 252 (H) 70 - 110 mg/dL [facility] CREATININE 1.97 (H) 0.50 - 1.04 [facility] mg/dL SERVICES CALCIUM 8.4 (L) 8.6 - 10.6 [facility] mg/dL SERVICES eGFR Calculation 28.4 mL/min/1.73m2 [facility] (Non- SERVICES Prydeinig) eGFR Calculation 34.4 mL/min/1.73m2 [facility] () SERVICES Specimen Blood - ARM, LEFT Narrative Performed At Association of Glomerular Filtration Rate (GFR) and Staging [facility] of Kidney Disease* + + [...] tests). Performing Organization Address City/State/Zipcode Phone Number [facility] CLIA: [id number], [address] [address] [phone] [facility] POCT GLUCOSE (AUTOMATED) (11/25/2019 8:41 PM PALS NURSE) POCT GLU 292 (H) 70 - 110 mg/dL [facility] Specimen Blood Performing Organization Address [facility] Centerconm Phone Number [facility] CLIA: [id number], [address] [address] [phone] [facility] POCT GLUCOSE (AUTOMATED) (11/25/2019 5:55 PM PALS NURSE) POCT GLU 275 (H) 70 - 110 mg/dL [facility] Specimen Blood Performing Organization Address [facility] Phone Number [facility] CLIA: [id number], [address] [address] [phone] [facility] POCT GLUCOSE (AUTOMATED) (11/25/2019 1:09 PM PALS NURSE) POCT GLU 186 (H) 70 - 110 mg/dL [facility] Specimen Blood Performing Organization Address [facility] Phone Number [facility] CLIA: [id number], [address] [address] [phone] [facility] POCT GLUCOSE (AUTOMATED) (11/25/2019 8:27 AM PALS NURSE) POCT GLU 175 (H) 70 - 110 mg/dL [facility] Specimen Blood Performing Organization Address [facility] Phone Number [facility] CLIA: [id number], [address] [address] [phone] [facility] CBC WITH DIFFERENTIAL (11/25/2019 6:11 AM PALS NURSE) WBC 6.50 4.30 - 11.10 [facility] 10*3/L SERVICES RBC 3.42 (L) 3.93 - 5.25 [facility] 10*6/L SERVICES HGB 9.6 (L) 11.6 - 15.0 [facility] g/dL SERVICES HCT 30.0 (L) 35.7 - 45.2 % [facility] MCV 87.7 80.6 - 95.5 fL [facility] MCH 28.1 25.9 - 32.8 pg [facility] MCHC 32.0 31.6 - 35.1 [facility] g/dL SERVICES RDW-SD 39.4 39.0 - 49.9 fL [facility] RDW-CV 12.2 12.0 - 15.5 % [facility] PLT 167 166 - 358 [facility] 10*3/L SERVICES MPV 11.6 9.5 - 12.9 fL [facility] NRBC/100 WBC 0.0 0.0 - 10.0 /100 [facility] WBCs SERVICES NRBC x10^3 <0.01 10*3/L [facility] GRAN MAT (NEUT) % 89.8 % [facility] IMM GRAN % 0.30 % [facility] LYMPH % 8.2 % [facility] MONO % 1.5 % [facility] EOS % 0.0 % [facility] BASO % 0.2 % [facility] GRAN MAT x10^3(ANC) 5.84 1.88 - 7.09 [facility] 10*3/uL SERVICES IMM GRAN x10^3 <0.03 0.00 - 0.06 [facility] 10*3/uL SERVICES LYMPH x10^3 0.53 (L) 1.32 - 3.29 [facility] 10*3/uL SERVICES MONO x10^3 0.10 (L) 0.33 - 0.92 [facility] 10*3/uL SERVICES EOS x10^3 <0.03 (L) 0.03 - 0.39 [facility] 10*3/uL SERVICES BASO x10^3 <0.03 0.01 - 0.07 [facility] 10*3/uL SERVICES Specimen Blood - LINE, VENOUS Performing Organization Address City/State/Zipcode Phone Number [facility] CLIA: [id number], [address] [place] [address] [facility] Basic Metabolic Panel (NA, K, CL, CO2, GLUCOSE, BUN, CREATININE, CA) (2019 6:11 AM PALS NURSE) NA 133 (L) 135 - 145 [facility] mmol/L SERVICES K 4.1 3.5 - 5.0 [facility] mmol/L SERVICES CL 98 98 - 108 mmol/L [facility] CO2 TOTAL 22 (L) 23 - 31 mmol/L [facility] AGAP 13 2 - 16 [facility] BUN 17 7 - 23 mg/dL [facility] GLUCOSE 181 (H) 70 - 110 mg/dL [facility] CREATININE 2.03 (H) 0.50 - 1.04 [facility] mg/dL SERVICES CALCIUM 8.9 8.6 - 10.6 [facility] mg/dL SERVICES eGFR Calculation 27.4 mL/min/1.73m2 [facility] (Non- SERVICES P[place]dein[place]) eGFR Calculation 33.2 mL/min/1.73m2 [facility] () SERVICES Specimen Blood - LINE, VENOUS Narrative Performed At Association of Glomerular Filtration Rate (GFR) and Staging [facility] of Kidney Disease* + + [...] abnormalities in imaging tests). Performing Organization Address City/[facility]/Zipcode Phone Number [facility] CLIA: [id number], [address] [address] [phone] [facility] POCT GLUCOSE (AUTOMATED) (11/24/2019 10:33 PM PALS NURSE) [facility] POCT GLU 180 (H) 70 - 110 mg/dL [facility] Specimen Blood Performing Organization Address [facility]/State/Zipcode Phone Number [facility] CLIA: [id number], [address] [address] [phone] [facility] POCT GLUCOSE (AUTOMATED) (11/24/2019 8:27 PM PALS NURSE) POCT GLU 161 (H) 70 - 110 mg/dL [facility] Specimen Blood Performing Organization Address City/[facility]/Zipcode Phone Number [facility] CLIA: [id number], [address] [address] [phone] [facility] POCT GLUCOSE (AUTOMATED) (11/24/2019 4:50 PM PALS NURSE) POCT GLU 150 (H) 70 - 110 mg/dL [facility] Specimen Blood Performing Organization Address City/[facility]/Zipcode Phone Number [facility] CLIA: [id number], [address] [address] [phone] [facility] CBC WITH DIFFERENTIAL (11/24/2019 3:29 PM PALS NURSE) WBC 6.97 4.30 - 11.10 [facility] 10*3/L SERVICES RBC 3.16 (L) 3.93 - 5.25 [facility] 10*6/L SERVICES HGB 8.8 (L) 11.6 - 15.0 [facility] g/dL SERVICES HCT 27.5 (L) 35.7 - 45.2 % [facility] MCV 87.0 80.6 - 95.5 fL [facility] MCH 27.8 25.9 - 32.8 pg [facility] MCHC 32.0 31.6 - 35.1 [facility] g/dL SERVICES RDW-SD 39.8 39.0 - 49.9 fL [facility] RDW-CV 12.3 12.0 - 15.5 % [facility] PLT 144 (L) 166 - 358 [facility] 10*3/L SERVICES MPV 11.5 9.5 - 12.9 fL [facility] NRBC/100 WBC 0.0 0.0 - 10.0 /100 [facility] WBCs SERVICES NRBC x10^3 <0.01 10*3/L [facility] GRAN MAT (NEUT) % 73.5 % [facility] IMM GRAN % 0.30 % [facility] LYMPH % 14.2 % [facility] MONO % 9.3 % [facility] EOS % 2.3 % [facility] BASO % 0.4 % [facility] GRAN MAT x10^3(ANC) 5.12 1.88 - 7.09 [facility] 10*3/uL SERVICES IMM GRAN x10^3 <0.03 0.00 - 0.06 [facility] 10*3/uL SERVICES LYMPH x10^3 0.99 (L) 1.32 - 3.29 [facility] 10*3/uL SERVICES MONO x10^3 0.65 0.33 - 0.92 [facility] 10*3/uL SERVICES EOS x10^3 0.16 0.03 - 0.39 [facility] 10*3/uL SERVICES BASO x10^3 0.03 0.01 - 0.07 [facility] 10*3/uL SERVICES Specimen Blood - ARM, RIGHT Performing Organization Address City/[facility] Centercode Phone Number [facility] CLIA: [id number], [address] [address] [phone] [facility] POCT GLUCOSE (AUTOMATED) (11/24/2019 12:33 PM PALS NURSE) POCT GLU 175 (H) 70 - 110 mg/dL [facility] Specimen Blood Performing Organization Address City/[facility]m Phone Number [facility] CLIA: [id number], [address] [address] [phone] [facility] POCT GLUCOSE (AUTOMATED) (11/24/2019 8:14 AM PALS NURSE) POCT GLU 200 (H) 70 - 110 mg/dL [facility] Specimen Blood Performing Organization Address City/[facility]/Zipcode Phone Number [facility] CLIA: [id number], [address] [address] [phone] [facility] ALBUMIN (11/24/2019 6:32 AM PALS NURSE) ALBUMIN 3.1 (L) 3.5 - 5.0 g/dL [facility] Specimen Blood - ARM, LEFT Performing Organization Address City/State/Zipcode Phone Number [facility] CLIA: [id number], [address] [place] [address] [facility] Basic Metabolic Panel (NA, K, CL, CO2, GLUCOSE, BUN, CREATININE, CA) (2019 6:32 AM PALS NURSE) NA 133 (L) 135 - 145 [facility] mmol/L SERVICES K 4.0 3.5 - 5.0 [facility] mmol/L SERVICES CL 100 98 - 108 mmol/L [facility] CO2 TOTAL 17 (L) 23 - 31 mmol/L [facility] AGAP 16 2 - 16 [facility] BUN 16 7 - 23 mg/dL [facility] GLUCOSE 187 (H) 70 - 110 mg/dL [facility] CREATININE 2.01 (H) 0.50 - 1.04 [facility] mg/dL SERVICES CALCIUM 8.6 8.6 - 10.6 [facility] mg/dL SERVICES eGFR Calculation 27.7 mL/min/1.73m2 [facility] (Non- SERVICES P[place]dein[facility]) eGFR Calculation 33.6 mL/min/1.73m2 [facility] () SERVICES Specimen Blood - ARM, LEFT Narrative Performed At Association of Glomerular Filtration Rate (GFR) and Staging [facility] of Kidney Disease* + + [...] abnormalities in imaging tests). Performing Organization Address City/State/Zipconm Phone Number [facility] CLIA: [id number], [address] [place] [address] [phone] [facility] POCT GLUCOSE (AUTOMATED) (11/23/2019 11:37 PM PALS NURSE) POCT GLU 189 (H) 70 - 110 mg/dL [facility] Specimen Blood Performing Organization Address City/[facility] Centercode Phone Number [facility] CLIA: [id number], [address] [place] [address] [phone] [facility] POCT GLUCOSE (AUTOMATED) (11/23/2019 8:39 PM PALS NURSE) POCT GLU 170 (H) 70 - 110 mg/dL [facility] Specimen Blood Performing Organization Address [facility] Phone Number [facility] CLIA: [id number], [address] [place] [address] [phone] [facility] POCT GLUCOSE (AUTOMATED) (11/23/2019 4:46 PM PALS NURSE) POCT GLU 156 (H) 70 - 110 mg/dL [facility] Specimen Blood Performing Organization Address [facility] Phone Number [facility] CLIA: [id number], [address] [place] [address] [phone] [facility] POCT GLUCOSE (AUTOMATED) (11/23/2019 12:22 PM PALS NURSE) POCT GLU 157 (H) 70 - 110 mg/dL [facility] Specimen Blood Performing Organization Address [facility] Phone Number [facility] CLIA: [id number], [address] [address] [phone] [facility] POCT GLUCOSE (AUTOMATED) (11/23/2019 11:56 AM PALS NURSE) POCT GLU 160 (H) 70 - 110 mg/dL [facility] Specimen Blood Performing Organization Address [facility] Phone Number [facility] CLIA: [id number], [address] [address] [phone] [facility] POCT GLUCOSE (AUTOMATED) (11/23/2019 8:26 AM PALS NURSE) POCT GLU 133 (H) 70 - 110 mg/dL [facility] Specimen Blood Performing Organization Address City/State/Zipcode Phone Number [facility] CLIA: [id number], [address] [address] [phone] [facility] CBC WITH DIFFERENTIAL (11/23/2019 5:33 AM PALS NURSE) WBC 6.77 4.30 - 11.10 [facility] 10*3/L SERVICES RBC 3.30 (L) 3.93 - 5.25 [facility] 10*6/L SERVICES HGB 9.4 (L) 11.6 - 15.0 [facility] g/dL SERVICES HCT 29.1 (L) 35.7 - 45.2 % [facility] MCV 88.2 80.6 - 95.5 fL [facility] MCH 28.5 25.9 - 32.8 pg [facility] MCHC 32.3 31.6 - 35.1 [facility] g/dL SERVICES RDW-SD 39.9 39.0 - 49.9 fL [facility] RDW-CV 12.3 12.0 - 15.5 % [facility] PLT 131 (L) 166 - 358 [facility] 10*3/L SERVICES MPV 11.7 9.5 - 12.9 fL [facility] NRBC/100 WBC 0.0 0.0 - 10.0 /100 [facility] WBCs SERVICES NRBC x10^3 <0.01 10*3/L [facility] GRAN MAT (NEUT) % 77.9 % [facility] IMM GRAN % 0.40 % [facility] LYMPH % 12.0 % [facility] MONO % 8.1 % [facility] EOS % 1.0 % [facility] BASO % 0.6 % [facility] GRAN MAT x10^3(ANC) 5.27 1.88 - 7.09 [facility] 10*3/uL SERVICES IMM GRAN x10^3 0.03 0.00 - 0.06 [facility] 10*3/uL SERVICES LYMPH x10^3 0.81 (L) 1.32 - 3.29 [facility] 10*3/uL SERVICES MONO x10^3 0.55 0.33 - 0.92 [facility] 10*3/uL SERVICES EOS x10^3 0.07 0.03 - 0.39 [facility] 10*3/uL SERVICES BASO x10^3 0.04 0.01 - 0.07 [facility] 10*3/uL SERVICES Specimen Blood - HAND, RIGHT Performing Organization Address City/State/Zipcode Phone Number [facility] CLIA: [id number], [address] [phone] [facility] MAGNESIUM (11/23/2019 5:33 AM PALS NURSE) MAGNESIUM 1.9 1.7 - 2.4 mg/dL [facility] Specimen Blood - HAND, RIGHT Performing Organization Address City/[facility]ode Phone Number [facility] CLIA: [id number], [address] [place] [address] [phone] [facility] Basic Metabolic Panel (NA, K, CL, CO2, GLUCOSE, BUN, CREATININE, CA) (2019 5:33 AM PALS NURSE) NA 132 (L) 135 - 145 [facility] mmol/L SERVICES K 3.6 3.5 - 5.0 [facility] mmol/L SERVICES CL 99 98 - 108 mmol/L [facility] CO2 TOTAL 23 23 - 31 mmol/L [facility] AGAP 10 2 - 16 [facility] BUN 14 7 - 23 mg/dL [facility] GLUCOSE 121 (H) 70 - 110 mg/dL [facility] CREATININE 1.98 (H) 0.50 - 1.04 [facility] mg/dL SERVICES CALCIUM 8.6 8.6 - 10.6 [facility] mg/dL SERVICES eGFR Calculation 28.2 mL/min/1.73m2 [facility] (Non- SERVICES [facility]) eGFR Calculation 34.2 mL/min/1.73m2 [facility] () SERVICES Specimen Blood - HAND, RIGHT Narrative Performed At Association of Glomerular Filtration Rate (GFR) and Staging [facility] of Kidney Disease* + + [...] abnormalities in imaging tests). Performing Organization Address City/[facility]ode Phone Number [facility] CLIA: [id number], [address] [address] [phone] [facility] POCT GLUCOSE (AUTOMATED) (11/22/2019 9:24 PM PALS NURSE) POCT GLU 116 (H) 70 - 110 mg/dL [facility] Specimen Blood Performing Organization Address [facility] Phone Number [facility] CLIA: [id number], [address] [address] 49810 [phone] [facility] POCT GLUCOSE (AUTOMATED) (11/22/2019 4:49 PM PALS NURSE) POCT GLU 120 (H) 70 - 110 mg/dL [facility] Specimen Blood Performing Organization Address [facility] Phone Number [facility] CLIA: [id number], [address] [address] [phone] [facility] POCT GLUCOSE (AUTOMATED) (11/22/2019 1:04 PM PALS NURSE) POCT GLU 129 (H) 70 - 110 mg/dL [facility] Specimen Blood Performing Organization Address [facility] Phone Number [facility] CLIA: [id number], [address] [address] [phone] [facility] POCT GLUCOSE (AUTOMATED) (11/22/2019 10:31 AM PALS NURSE) POCT GLU 177 (H) 70 - 110 mg/dL [facility] Specimen Blood Performing Organization Address City/State/Zipcode Phone Number [facility] CLIA: [id number], [address] [address] [phone] [facility] LIPASE (11/22/2019 6:22 AM PALS NURSE) LIPASE 56 0 - 220 U/L [facility] Specimen Blood - ARM, RIGHT Performing Organization Address City/State/Zipcode Phone Number [facility] CLIA: [id number], [address] [address] 66630 [phone] [facility] MAGNESIUM (11/22/2019 6:22 AM PALS NURSE) MAGNESIUM 1.9 1.7 - 2.4 mg/dL [facility] Specimen Blood - ARM, RIGHT Performing Organization Address City/State/[facility] Phone Number [facility] CLIA: [id number], [address] [place] [phone] [facility] Basic Metabolic Panel (NA, K, CL, CO2, GLUCOSE, BUN, CREATININE, CA) (2019 6:22 AM PALS NURSE) NA 132 (L) 135 - 145 [facility] mmol/L SERVICES K 4.0 3.5 - 5.0 [facility] mmol/L SERVICES CL 95 (L) 98 - 108 mmol/L [facility] CO2 TOTAL 26 23 - 31 mmol/L [facility] AGAP 11 2 - 16 [facility] BUN 16 7 - 23 mg/dL [facility] GLUCOSE 178 (H) 70 - 110 mg/dL [facility] CREATININE 2.07 (H) 0.50 - 1.04 [facility] mg/dL SERVICES CALCIUM 9.0 8.6 - 10.6 [facility] mg/dL SERVICES eGFR Calculation 26.8 mL/min/1.73m2 [facility] (Non- SERVICES P[place]de[employer]) eGFR Calculation 32.5 mL/min/1.73m2 [facility] () SERVICES Specimen Blood - ARM, RIGHT Narrative Performed At Association of Glomerular Filtration Rate (GFR) and Staging [facility] of Kidney Disease* + + [...] abnormalities in imaging tests). Performing Organization Address City/[facility]ode Phone Number [facility] CLIA: [id number], [address] [place] [address] [phone] [facility] POCT GLUCOSE (AUTOMATED) (11/21/2019 8:47 PM PALS NURSE) POCT GLU 259 (H) 70 - 110 mg/dL [facility] Specimen Blood Performing Organization Address City/[facility] Phone Number [facility] CLIA: [id number], [address] [place] [address] [phone] [facility] POCT GLUCOSE (AUTOMATED) (11/21/2019 5:45 PM PALS NURSE) POCT GLU 211 (H) 70 - 110 mg/dL [facility] Specimen Blood Performing Organization Address [facility] Phone Number [facility] CLIA: [id number], [address] [address] [phone] [facility] POCT GLUCOSE (AUTOMATED) (11/21/2019 12:39 PM PALS NURSE) POCT GLU 224 (H) 70 - 110 mg/dL [facility] Specimen Blood Performing Organization Address [facility] Phone Number [facility] CLIA: [id number], [address] [address] [phone] [employer] POCT GLUCOSE (AUTOMATED) (11/21/2019 11:15 AM PALS NURSE) POCT GLU 203 (H) 70 - 110 mg/dL [facility] Specimen Blood Performing Organization Address City/[facility] Phone Number [facility] CLIA: [id number], [address] [address] [phone] [employer] POCT GLUCOSE (AUTOMATED) (11/21/2019 9:54 AM PALS NURSE) POCT GLU 166 (H) 70 - 110 mg/dL [facility] Specimen Blood Performing Organization Address [facility] Phone Number [facility] CLIA: [id number], [address] [address] [phone] [facility] POCT GLUCOSE (AUTOMATED) (11/21/2019 8:37 AM PALS NURSE) POCT GLU 132 (H) 70 - 110 mg/dL [facility] Specimen Blood Performing Organization Address [facility] Phone Number [facility] CLIA: [id number], [address] [address] [phone] [facility] CBC WITH DIFFERENTIAL (11/21/2019 5:57 AM PALS NURSE) WBC 4.98 4.30 - 11.10 [facility] 10*3/L SERVICES RBC 3.12 (L) 3.93 - 5.25 [facility] 10*6/L SERVICES HGB 8.7 (L) 11.6 - 15.0 [facility] g/dL SERVICES HCT 26.8 (L) 35.7 - 45.2 % [facility] MCV 85.9 80.6 - 95.5 fL [facility] MCH 27.9 25.9 - 32.8 pg [facility] MCHC 32.5 31.6 - 35.1 [facility] g/dL SERVICES RDW-SD 38.5 (L) 39.0 - 49.9 fL [facility] RDW-CV 12.1 12.0 - 15.5 % [facility] PLT 127 (L) 166 - 358 [facility] 10*3/L SERVICES MPV 11.6 9.5 - 12.9 fL [facility] NRBC/100 WBC 0.0 0.0 - 10.0 /100 [facility] WBCs SERVICES NRBC x10^3 <0.01 10*3/L [facility] GRAN MAT (NEUT) % 61.5 % [facility] IMM GRAN % 0.20 % [facility] LYMPH % 23.1 % [facility] MONO % 10.8 % [facility] EOS % 3.6 % [facility] BASO % 0.8 % [facility] GRAN MAT x10^3(ANC) 3.06 1.88 - 7.09 [facility] 10*3/uL SERVICES IMM GRAN x10^3 <0.03 0.00 - 0.06 [facility] 10*3/uL SERVICES LYMPH x10^3 1.15 (L) 1.32 - 3.29 [facility] 10*3/uL SERVICES MONO x10^3 0.54 0.33 - 0.92 [facility] 10*3/uL SERVICES EOS x10^3 0.18 0.03 - 0.39 [facility] 10*3/uL SERVICES BASO x10^3 0.04 0.01 - 0.07 [facility] 10*3/uL SERVICES Specimen Blood - ARM, LEFT Performing Organization Address City/[facility] Cent[facility]ode Phone Number [facility] CLIA: [id number], [address] [place] [address] [facility] MAGNESIUM (11/21/2019 5:57 AM PALS NURSE) MAGNESIUM 2.0 1.7 - 2.4 mg/dL [facility] Specimen Blood - ARM, LEFT Performing Organization Address [facility] Phone Number [facility] CLIA: [id number], [address] [address] [phone] [facility] Basic Metabolic Panel (NA, K, CL, CO2, GLUCOSE, BUN, CREATININE, CA) (2019 5:57 AM PALS NURSE) NA 132 (L) 135 - 145 [facility] mmol/L SERVICES K 3.2 (L) 3.5 - 5.0 [facility] mmol/L SERVICES CL 95 (L) 98 - 108 mmol/L [facility] CO2 TOTAL 30 23 - 31 mmol/L [facility] AGAP 7 2 - 16 [facility] BUN 17 7 - 23 mg/dL [facility] GLUCOSE 125 (H) 70 - 110 mg/dL [facility] CREATININE 2.12 (H) 0.50 - 1.04 [facility] mg/dL SERVICES CALCIUM 8.3 (L) 8.6 - 10.6 [facility] mg/dL SERVICES eGFR Calculation 26.1 mL/min/1.73m2 [facility] (Non- SERVICES Prydeinig) eGFR Calculation 31.6 mL/min/1.73m2 [facility] () SERVICES Specimen Blood - ARM, LEFT Narrative Performed At Association of Glomerular Filtration Rate (GFR) and Staging [facility] of Kidney Disease* + + [...] tests). Performing Organization Address City/State/Zipcode Phone Number [facility] CLIA: [id number], [address] [place] [address] [facility] POCT GLUCOSE (AUTOMATED) (11/20/2019 9:08 PM PALS NURSE) [facility] POCT GLU 135 (H) 70 - 110 mg/dL [facility] Specimen Blood Performing Organization Address [facility] Phone Number [facility] CLIA: [id number], [address] [address] [phone] [employer] POCT GLUCOSE (AUTOMATED) (11/20/2019 5:02 PM PALS NURSE) POCT GLU 124 (H) 70 - 110 mg/dL [facility] Specimen Blood Performing Organization Address City/[facility] Phone Number [facility] CLIA: [id number], [address] [address] [phone] [employer] POCT GLUCOSE (AUTOMATED) (11/20/2019 11:52 AM PALS NURSE) POCT GLU 111 (H) 70 - 110 mg/dL [facility] Specimen Blood Performing Organization Address [facility] Phone Number [facility] CLIA: [id number], [address] [address] [phone] [facility] POCT GLUCOSE (AUTOMATED) (11/20/2019 9:45 AM PALS NURSE) POCT GLU 153 (H) 70 - 110 mg/dL [facility] Specimen Blood Performing Organization Address [facility] Phone Number [facility] CLIA: [id number], [address] [address] [phone] [employer] CBC WITH DIFFERENTIAL (11/20/2019 5:45 AM PALS NURSE) WBC 5.04 4.30 - 11.10 [facility] 10*3/L SERVICES RBC 2.95 (L) 3.93 - 5.25 [facility] 10*6/L SERVICES HGB 8.2 (L) 11.6 - 15.0 [facility] g/dL SERVICES HCT 25.8 (L) 35.7 - 45.2 % [facility] MCV 87.5 80.6 - 95.5 fL [facility] MCH 27.8 25.9 - 32.8 pg [facility] MCHC 31.8 31.6 - 35.1 [facility] g/dL SERVICES RDW-SD 39.8 39.0 - 49.9 fL [facility] RDW-CV 12.3 12.0 - 15.5 % [facility] PLT 129 (L) 166 - 358 [facility] 10*3/L SERVICES MPV 12.0 9.5 - 12.9 fL [facility] NRBC/100 WBC 0.0 0.0 - 10.0 /100 [facility] WBCs SERVICES NRBC x10^3 <0.01 10*3/L [facility] GRAN MAT (NEUT) % 61.7 % [facility] IMM GRAN % 0.40 % [facility] LYMPH % 22.6 % [facility] MONO % 11.9 % [facility] EOS % 2.8 % [facility] BASO % 0.6 % [facility] GRAN MAT x10^3(ANC) 3.11 1.88 - 7.09 [facility] 10*3/uL SERVICES IMM GRAN x10^3 <0.03 0.00 - 0.06 [facility] 10*3/uL SERVICES LYMPH x10^3 1.14 (L) 1.32 - 3.29 [facility] 10*3/uL SERVICES MONO x10^3 0.60 0.33 - 0.92 [facility] 10*3/uL SERVICES EOS x10^3 0.14 0.03 - 0.39 [facility] 10*3/uL SERVICES BASO x10^3 0.03 0.01 - 0.07 [facility] 10*3/uL SERVICES Specimen Blood - HAND, LEFT Performing Organization Address City/[facility]/Zipcode Phone Number [facility] CLIA: [id number], [address] [address] [phone] [facility] MAGNESIUM (11/20/2019 5:45 AM PALS NURSE) MAGNESIUM 2.1 1.7 - 2.4 mg/dL [facility] Specimen Blood - HAND, LEFT Performing Organization Address [facility] Cent[facility]ode Phone Number [facility] CLIA: [id number], [address] [address] 66425 [phone] [facility] Basic Metabolic Panel (NA, K, CL, CO2, GLUCOSE, BUN, CREATININE, CA) (2019 5:45 AM PALS NURSE) NA 136 135 - 145 [facility] mmol/L SERVICES K 3.7 3.5 - 5.0 [facility] mmol/L SERVICES CL 97 (L) 98 - 108 mmol/L [facility] CO2 TOTAL 27 23 - 31 mmol/L [facility] AGAP 12 2 - 16 [facility] BUN 20 7 - 23 mg/dL [facility] GLUCOSE 133 (H) 70 - 110 mg/dL [facility] CREATININE 2.25 (H) 0.50 - 1.04 [facility] mg/dL SERVICES CALCIUM 8.3 (L) 8.6 - 10.6 [facility] mg/dL SERVICES eGFR Calculation 24.3 mL/min/1.73m2 [facility] (Non- SERVICES P[employer]de[employer]) eGFR Calculation 29.5 mL/min/1.73m2 [facility] () SERVICES Specimen Blood - HAND, LEFT Narrative Performed At Association of Glomerular Filtration Rate (GFR) and Staging [facility] of Kidney Disease* + + [...] tests). Performing Organization Address City/State/Zipcode Phone Number [facility] CLIA: [id number], [address] [place] [address] [phone] [facility] MAGNESIUM (11/19/2019 10:11 PM PALS NURSE) [facility] Signature MAGNESIUM 2.1 1.7 - 2.4 mg/dL [facility] Specimen Blood - ARM, RIGHT Performing Organization Address City/State/Zipcode Phone Number [facility] CLIA: [id number], [address] [place], [place] [phone] [facility] BASIC METABOLIC PANEL (NA, K, CL, CO2, GLUCOSE, BUN, CREATININE, CA) (2019 10:11 PM PALS NURSE) NA 135 135 - 145 [facility] mmol/L SERVICES K 3.3 (L) 3.5 - 5.0 [facility] mmol/L SERVICES CL 96 (L) 98 - 108 mmol/L [facility] CO2 TOTAL 29 23 - 31 mmol/L [facility] AGAP 10 2 - 16 [facility] BUN 21 7 - 23 mg/dL [facility] GLUCOSE 151 (H) 70 - 110 mg/dL [facility] CREATININE 2.34 (H) 0.50 - 1.04 [facility] mg/dL SERVICES CALCIUM 8.3 (L) 8.6 - 10.6 [facility] mg/dL SERVICES eGFR Calculation 23.3 mL/min/1.73m2 [facility] (Non- SERVICES [employer]de[employer]) eGFR Calculation 28.2 mL/min/1.73m2 [facility] () SERVICES Specimen Blood - ARM, RIGHT Narrative Performed At Association of Glomerular Filtration Rate (GFR) and Staging [facility] of Kidney Disease* + + [...] tests). Performing Organization Address City/State/Zipcode Phone Number [facility] CLIA: [id number], [address] [address] [phone] [facility] POCT GLUCOSE (AUTOMATED) (11/19/2019 9:13 PM PALS NURSE) POCT GLU 158 (H) 70 - 110 mg/dL [facility] Specimen Blood Performing Organization Address City/[facility] Cent[facility] Phone Number [facility] CLIA: [id number], [address] [address] [phone] [facility] POCT GLUCOSE (AUTOMATED) (11/19/2019 4:39 PM PALS NURSE) POCT GLU 142 (H) 70 - 110 mg/dL [facility] Specimen Blood Performing Organization Address [facility] Phone Number [facility] CLIA: [id number], [address] [address] [phone] [facility] POCT GLUCOSE (AUTOMATED) (11/19/2019 1:39 PM PALS NURSE) POCT GLU 141 (H) 70 - 110 mg/dL [facility] Specimen Blood Performing Organization Address [facility] Phone Number [facility] CLIA: [id number], [address] [address] [phone] [facility] POCT GLUCOSE (AUTOMATED) (11/19/2019 9:11 AM PALS NURSE) POCT GLU 181 (H) 70 - 110 mg/dL [facility] Specimen Blood Narrative Performed At Notified Provider [facility] Performing Organization Address City/[facility] Phone Number [facility] CLIA: [id number], [address] [address] [phone] [facility] CBC WITH DIFFERENTIAL (11/19/2019 5:07 AM PALS NURSE) WBC 5.26 4.30 - 11.10 [facility] 10*3/L SERVICES RBC 2.96 (L) 3.93 - 5.25 [facility] 10*6/L SERVICES HGB 8.4 (L) 11.6 - 15.0 [facility] g/dL SERVICES HCT 27.0 (L) 35.7 - 45.2 % [facility] MCV 91.2 80.6 - 95.5 fL [facility] MCH 28.4 25.9 - 32.8 pg [facility] MCHC 31.1 (L) 31.6 - 35.1 [facility] g/dL SERVICES RDW-SD 41.2 39.0 - 49.9 fL [facility] RDW-CV 12.4 12.0 - 15.5 % [facility] PLT 137 (L) 166 - 358 [facility] 10*3/L SERVICES MPV 12.3 9.5 - 12.9 fL [facility] NRBC/100 WBC 0.0 0.0 - 10.0 /100 [facility] WBCs SERVICES NRBC x10^3 <0.01 10*3/L [facility] GRAN MAT (NEUT) % 73.1 % [facility] IMM GRAN % 0.40 % [facility] LYMPH % 13.3 % [facility] MONO % 11.4 % [facility] EOS % 1.0 % [facility] BASO % 0.8 % [facility] GRAN MAT x10^3(ANC) 3.85 1.88 - 7.09 [facility] 10*3/uL SERVICES IMM GRAN x10^3 <0.03 0.00 - 0.06 [facility] 10*3/uL SERVICES LYMPH x10^3 0.70 (L) 1.32 - 3.29 [facility] 10*3/uL SERVICES MONO x10^3 0.60 0.33 - 0.92 [facility] 10*3/uL SERVICES EOS x10^3 0.05 0.03 - 0.39 [facility] 10*3/uL SERVICES BASO x10^3 0.04 0.01 - 0.07 [facility] 10*3/uL SERVICES Specimen Blood - ARM, LEFT Performing Organization Address City/State/Zipcode Phone Number [facility] CLIA: [id number], [address] [place], [place] [phone] [address] MAGNESIUM (11/19/2019 5:07 AM PALS NURSE) MAGNESIUM 1.7 1.7 - 2.4 mg/dL [facility] Specimen Blood - ARM, LEFT Performing Organization Address City/State/Zipcode Phone Number [facility] CLIA: [id number], [address] [place], [place] [phone] [facility] Basic Metabolic Panel (NA, K, CL, CO2, GLUCOSE, BUN, CREATININE, CA) (2019 5:07 AM PALS NURSE) NA 136 135 - 145 [facility] mmol/L SERVICES K 3.0 (L) 3.5 - 5.0 [facility] mmol/L SERVICES CL 94 (L) 98 - 108 mmol/L [facility] CO2 TOTAL 27 23 - 31 mmol/L [facility] AGAP 15 2 - 16 [facility] BUN 24 (H) 7 - 23 mg/dL [facility] GLUCOSE 165 (H) 70 - 110 mg/dL [facility] CREATININE 2.30 (H) 0.50 - 1.04 [facility] mg/dL SERVICES CALCIUM 8.4 (L) 8.6 - 10.6 [facility] mg/dL SERVICES eGFR Calculation 23.7 mL/min/1.73m2 [facility] (Non- SERVICES [employer]) eGFR Calculation 28.8 mL/min/1.73m2 [facility] () SERVICES Specimen Blood - ARM, LEFT Narrative Performed At Association of Glomerular Filtration Rate (GFR) and Staging [facility] of Kidney Disease* + + [...] tests). Performing Organization Address City/State/Zipcode Phone Number [facility] CLIA: [id number], [address] [address] [phone] [facility] POCT GLUCOSE (AUTOMATED) (11/18/2019 8:51 PM PALS NURSE) POCT GLU 184 (H) 70 - 110 mg/dL [facility] Specimen Blood Performing Organization Address City/[facility] Phone Number [facility] CLIA: [id number], [address] [address] [phone] [employer] POCT GLUCOSE (AUTOMATED) (11/18/2019 6:23 PM PALS NURSE) POCT GLU 194 (H) 70 - 110 mg/dL [facility] Specimen Blood Performing Organization Address [facility] Phone Number [facility] CLIA: [id number], [address] [address] [phone] [facility] POCT GLUCOSE (AUTOMATED) (11/18/2019 5:03 PM PALS NURSE) POCT GLU 206 (H) 70 - 110 mg/dL [facility] Specimen Blood Performing Organization Address [facility] Phone Number [facility] CLIA: [id number], [address] [address] [phone] [employer] POCT GLUCOSE (AUTOMATED) (11/18/2019 12:44 PM PALS NURSE) POCT GLU 165 (H) 70 - 110 mg/dL [facility] Specimen Blood Performing Organization Address [facility] Phone Number [facility] CLIA: [id number], [address] [address] [phone] [employer] POCT GLUCOSE (AUTOMATED) (11/18/2019 8:27 AM PALS NURSE) POCT GLU 173 (H) 70 - 110 mg/dL [facility] Specimen Blood Performing Organization Address [facility]/Zipcode Phone Number [facility] CLIA: [id number], [address] [place] [address] [facility] CBC WITH DIFFERENTIAL (11/18/2019 3:25 AM PALS NURSE) WBC 6.71 4.30 - 11.10 [facility] 10*3/L SERVICES RBC 2.97 (L) 3.93 - 5.25 [facility] 10*6/L SERVICES HGB 8.6 (L) 11.6 - 15.0 [facility] g/dL SERVICES HCT 27.3 (L) 35.7 - 45.2 % [facility] MCV 91.9 80.6 - 95.5 fL [facility] MCH 29.0 25.9 - 32.8 pg [facility] MCHC 31.5 (L) 31.6 - 35.1 [facility] g/dL SERVICES RDW-SD 42.3 39.0 - 49.9 fL [facility] RDW-CV 12.6 12.0 - 15.5 % [facility] PLT 141 (L) 166 - 358 [facility] 10*3/L SERVICES MPV 12.1 9.5 - 12.9 fL [facility] NRBC/100 WBC 0.0 0.0 - 10.0 /100 [facility] WBCs SERVICES NRBC x10^3 <0.01 10*3/L [facility] GRAN MAT (NEUT) % 78.0 % [facility] IMM GRAN % 0.30 % [facility] LYMPH % 10.7 % [facility] MONO % 10.0 % [facility] EOS % 0.4 % [facility] BASO % 0.6 % [facility] GRAN MAT x10^3(ANC) 5.23 1.88 - 7.09 [facility] 10*3/uL SERVICES IMM GRAN x10^3 <0.03 0.00 - 0.06 [facility] 10*3/uL SERVICES LYMPH x10^3 0.72 (L) 1.32 - 3.29 [facility] 10*3/uL SERVICES MONO x10^3 0.67 0.33 - 0.92 [facility] 10*3/uL SERVICES EOS x10^3 0.03 0.03 - 0.39 [facility] 10*3/uL SERVICES BASO x10^3 0.04 0.01 - 0.07 [facility] 10*3/uL SERVICES Specimen Blood - ARM, LEFT Performing Organization Address City/State/Zipcode Phone Number [facility] CLIA: [id number], [address] [facility] [place] [address] [phone] [facility] Basic Metabolic Panel (NA, K, CL, CO2, GLUCOSE, BUN, CREATININE, CA) (2019 3:25 AM PALS NURSE) NA 138 135 - 145 [facility] mmol/L SERVICES K 3.2 (L) 3.5 - 5.0 [facility] mmol/L SERVICES CL 95 (L) 98 - 108 mmol/L [facility] CO2 TOTAL 31 23 - 31 mmol/L [facility] AGAP 12 2 - 16 [facility] BUN 24 (H) 7 - 23 mg/dL [facility] GLUCOSE 143 (H) 70 - 110 mg/dL [facility] CREATININE 2.32 (H) 0.50 - 1.04 [facility] mg/dL SERVICES CALCIUM 8.6 8.6 - 10.6 [facility] mg/dL SERVICES eGFR Calculation 23.5 mL/min/1.73m2 [facility] (Non- SERVICES [employer]) eGFR Calculation 28.5 mL/min/1.73m2 [facility] () SERVICES Specimen Blood - ARM, LEFT Narrative Performed At Association of Glomerular Filtration Rate (GFR) and Staging [facility] of Kidney Disease* + + [...] tests). Performing Organization Address City/State/Zipcode Phone Number [facility] CLIA: [id number], [address] [address] [phone] [facility] POCT GLUCOSE (AUTOMATED) (11/17/2019 8:33 PM PALS NURSE) POCT GLU 153 (H) 70 - 110 mg/dL [facility] Specimen Blood Performing Organization Address [facility] Phone Number [facility] CLIA: [id number], [address] [id number] [phone] [place] POCT GLUCOSE (AUTOMATED) (11/17/2019 5:18 PM PALS NURSE) POCT GLU 157 (H) 70 - 110 mg/dL [facility] Specimen Blood Performing Organization Address [place] [facility] [place] Phone Number [facility] CLIA: [id number], [address] [address] [phone] [facility] [place] POCT GLUCOSE (AUTOMATED) (11/17/2019 12:15 PM PALS NURSE) POCT GLU 229 (H) 70 - 110 mg/dL [facility] Specimen Blood Performing Organization Address [facility] [place] Phone Number [facility] CLIA: [id number], [address] [address] [phone] [address] POCT GLUCOSE (AUTOMATED) (11/17/2019 10:00 AM PALS NURSE) POCT GLU 182 (H) 70 - 110 mg/dL [facility] Specimen Blood Performing Organization Address [facility] [place] Phone Number [facility] CLIA: [id number], [address] [address] [phone] [place] POCT GLUCOSE (AUTOMATED) (11/17/2019 8:42 AM PALS NURSE) POCT GLU 169 (H) 70 - 110 mg/dL [facility] Specimen Blood Performing Organization Address City/State/Zipcode Phone Number [facility] CLIA: [id number], [address] [place], [place] [phone] [place] MAGNESIUM (11/17/2019 4:46 AM PALS NURSE) MAGNESIUM 1.9Comment: Slight 1.7 - 2.4 mg/dL [facility] hemolysis SERVICES Specimen Blood - ARM, RIGHT Performing Organization Address City/[facility]/Zipcode Phone Number [facility] CLIA: [id number], [address] [place], [place] [phone] CBC WITH DIFFERENTIAL (11/17/2019 4:46 AM PALS NURSE) WBC 7.06 4.30 - 11.10 [facility] 10*3/L SERVICES RBC 3.04 (L) 3.93 - 5.25 [facility] 10*6/L SERVICES HGB 8.7 (L) 11.6 - 15.0 [facility] g/dL SERVICES HCT 27.9 (L) 35.7 - 45.2 % [facility] MCV 91.8 80.6 - 95.5 fL [facility] MCH 28.6 25.9 - 32.8 pg [facility] MCHC 31.2 (L) 31.6 - 35.1 [facility] g/dL SERVICES RDW-SD 42.8 39.0 - 49.9 fL [facility] RDW-CV 12.7 12.0 - 15.5 % [facility] PLT 160 (L) 166 - 358 [facility] 10*3/L SERVICES MPV 12.2 9.5 - 12.9 fL [facility] NRBC/100 WBC 0.0 0.0 - 10.0 /100 [facility] WBCs SERVICES NRBC x10^3 <0.01 10*3/L [facility] GRAN MAT (NEUT) % 85.1 % [facility] IMM GRAN % 0.40 % [facility] LYMPH % 7.6 % [facility] MONO % 6.1 % [facility] EOS % 0.4 % [facility] BASO % 0.4 % [facility] GRAN MAT x10^3(ANC) 6.00 1.88 - 7.09 [facility] 10*3/uL SERVICES IMM GRAN x10^3 0.03 0.00 - 0.06 [facility] 10*3/uL SERVICES LYMPH x10^3 0.54 (L) 1.32 - 3.29 [facility] 10*3/uL SERVICES MONO x10^3 0.43 0.33 - 0.92 [facility] 10*3/uL SERVICES EOS x10^3 0.03 0.03 - 0.39 [facility] 10*3/uL SERVICES BASO x10^3 0.03 0.01 - 0.07 [facility] 10*3/uL SERVICES Specimen Blood - ARM, RIGHT Performing Organization Address City/State/Zipcode Phone Number [facility] CLIA: [id number], [address] [place] [address] [facility] Basic Metabolic Panel (NA, K, CL, CO2, GLUCOSE, BUN, CREATININE, CA) (2019 4:46 AM PALS NURSE) NA 138 135 - 145 [facility] mmol/L SERVICES K 3.3 (L)Comment: 3.5 - 5.0 [facility] Slight hemolysis mmol/L SERVICES CL 97 (L) 98 - 108 [facility] mmol/L SERVICES CO2 TOTAL 29 23 - 31 [facility] mmol/L SERVICES AGAP 12 2 - 16 [facility] SERVICES BUN 26 (H)Comment: 7 - 23 mg/dL [facility] Slight hemolysis SERVICES GLUCOSE 132 (H) 70 - 110 [facility] mg/dL SERVICES CREATININE 2.28 (H) 0.50 - 1.04 [facility] mg/dL SERVICES CALCIUM 8.7 8.6 - 10.6 [facility] mg/dL SERVICES eGFR Calculation 24.0 mL/min/1.73m2 [facility] (Non- SERVICES P[place]deinig) eGFR Calculation 29.1 mL/min/1.73m2 [facility] () SERVICES Specimen Blood - ARM, RIGHT Narrative Performed At Association of Glomerular Filtration Rate (GFR) and Staging [facility] of Kidney Disease* + + [...] abnormalities in imaging tests). Performing Organization Address City/[facility]/Zipcode Phone Number [facility] CLIA: [id number], [address] [address] [phone] [facility] POCT GLUCOSE (AUTOMATED) (11/16/2019 10:05 PM PALS NURSE) POCT GLU 73 70 - 110 mg/dL [facility] Specimen Blood Performing Organization Address [facility] Phone Number [facility] CLIA: [id number], [address] [phone] [facility] POCT GLUCOSE (AUTOMATED) (11/16/2019 4:54 PM PALS NURSE) POCT GLU 197 (H) 70 - 110 mg/dL [facility] Specimen Blood Narrative Performed At Notified Provider [facility] Performing Organization Address [facility] Phone Number [facility] CLIA: [id number], [address] [address] [phone] [facility] CBC WITH DIFFERENTIAL (11/16/2019 2:36 PM PALS NURSE) WBC 6.85 4.30 - 11.10 [facility] 10*3/L SERVICES RBC 2.56 (L) 3.93 - 5.25 [facility] 10*6/L SERVICES HGB 7.3 (L) 11.6 - 15.0 [facility] g/dL SERVICES HCT 23.4 (L) 35.7 - 45.2 % [facility] SERVICES MCV 91.4 80.6 - 95.5 fL [facility] MCH 28.5 25.9 - 32.8 pg [facility] MCHC 31.2 (L) 31.6 - 35.1 [facility] g/dL SERVICES RDW-SD 42.0 39.0 - 49.9 fL [facility] RDW-CV 12.7 12.0 - 15.5 % [facility] PLT 137 (L) 166 - 358 [facility] 10*3/L SERVICES MPV 12.1 9.5 - 12.9 fL [facility] NRBC/100 WBC 0.0 0.0 - 10.0 /100 [facility] WBCs SERVICES NRBC x10^3 <0.01 10*3/L [facility] GRAN MAT (NEUT) % 79.3 % [facility] IMM GRAN % 0.40 % [facility] LYMPH % 9.5 % [facility] MONO % 10.1 % [facility] EOS % 0.1 % [facility] BASO % 0.6 % [facility] GRAN MAT x10^3(ANC) 5.43 1.88 - 7.09 [facility] 10*3/uL SERVICES IMM GRAN x10^3 0.03 0.00 - 0.06 [facility] 10*3/uL SERVICES LYMPH x10^3 0.65 (L) 1.32 - 3.29 [facility] 10*3/uL SERVICES MONO x10^3 0.69 0.33 - 0.92 [facility] 10*3/uL SERVICES EOS x10^3 <0.03 (L) 0.03 - 0.39 [facility] 10*3/uL SERVICES BASO x10^3 0.04 0.01 - 0.07 [facility] 10*3/uL SERVICES Specimen Blood - ARM, LEFT Performing Organization Address City/State/Zipcode Phone Number [facility] CLIA: [id number], [address] [place], [place] [phone] [facility] POCT GLUCOSE (AUTOMATED) (11/16/2019 12:14 PM PALS NURSE) POCT GLU 243 (H) 70 - 110 mg/dL [facility] Specimen Blood Performing Organization Address City/State/Zipcode Phone Number [facility] CLIA: [id number], [address] [address] [phone] [facility] POCT GLUCOSE (AUTOMATED) (11/16/2019 8:52 AM PALS NURSE) POCT GLU 326 (H) 70 - 110 mg/dL [facility] Specimen Blood Narrative Performed At Notified Provider [facility] Performing Organization Address City/[facility]/Zipcode Phone Number [facility] CLIA: [id number], [address] [address] [phone] [facility] URINALYSIS (11/15/2019 8:40 PM PALS NURSE) APPEARANCE Clear Clear [facility] COLOR Straw (A) Yellow [facility] PH 8.0 4.8 - 8.0 [facility] SP GRAVITY 1.008 1.003 - 1.030 [facility] GLU U QUAL 500 mg/dL (A) Normal [facility] BLOOD 1+ (A) Negative [facility] KETONES 5 mg/dL (A) Negative [facility] PROTEIN 100 mg/dL (A) Negative [facility] UROBILIN Normal Normal [facility] BILIRUBIN Negative Negative [facility] NITRITE Negative Negative [facility] [place]WARD Negative Negative [facility] RBC/HPF 4 (H) 0 - 3 HPF [facility] WBC/HPF 1 0 - 5 HPF [facility] BACTERIA Negative Negative [facility] AMORPHOUS Rare Rare HPF [facility] SQ EPITH 2 <=2 HPF [facility] HYAL CAST 4 (H) <=2 LPF [facility] Specimen Urine - URINE, CLEAN CATCH Performing Organization Address City/State/Zipcode Phone Number [facility] CLIA: [id number], [address] [place] [address] [phone] [facility] ACUTE CARE VENOUS BLOOD GAS (11/15/2019 5:52 PM PALS NURSE) PH 7.46 (H) 7.32 - 7.42 [facility] PCO2 MIL 40 (L) 41 - 51 mmHg [facility] PO2 MIL 55 (HH) 25 - 40 mmHg [facility] HCO3 MIL 28 24 - 28 mEq/L [facility] AC VBE(BEAKER) 3.6 mEq/L [facility] Specimen Blood - ARM, LEFT Performing Organization Address City/State/Zipcode Phone Number [facility] CLIA: [id number], [address] [place] [address] [phone] [facility] EXTRA TUBE ORANGE (11/15/2019 5:46 PM PALS NURSE) Specimen Blood Performing Organization Address City/State/Zipcode Phone Number [facility] CLIA: [id number], [address] [place] [address] [facility] CBC WITH DIFFERENTIAL (11/15/2019 5:46 PM PALS NURSE) WBC 12.13 (H) 4.30 - 11.10 [facility] 10*3/L SERVICES RBC 3.43 (L) 3.93 - 5.25 [facility] 10*6/L SERVICES HGB 9.9 (L) 11.6 - 15.0 [facility] g/dL SERVICES HCT 31.1 (L) 35.7 - 45.2 % [facility] MCV 90.7 80.6 - 95.5 fL [facility] MCH 28.9 25.9 - 32.8 pg [facility] MCHC 31.8 31.6 - 35.1 [facility] g/dL SERVICES RDW-SD 42.0 39.0 - 49.9 fL [facility] RDW-CV 12.6 12.0 - 15.5 % [facility] PLT 199 166 - 358 [facility] 10*3/L SERVICES MPV 12.1 9.5 - 12.9 fL [facility] NRBC/100 WBC 0.0 0.0 - 10.0 /100 [facility] WBCs SERVICES NRBC x10^3 <0.01 10*3/L [facility] GRAN MAT (NEUT) % 82.2 % [facility] IMM GRAN % 0.20 % [facility] LYMPH % 8.8 % [facility] MONO % 6.8 % [facility] EOS % 1.6 % [facility] BASO % 0.4 % [facility] GRAN MAT x10^3(ANC) 9.97 (H) 1.88 - 7.09 [facility] 10*3/uL SERVICES IMM GRAN x10^3 0.03 0.00 - 0.06 [facility] 10*3/uL SERVICES LYMPH x10^3 1.07 (L) 1.32 - 3.29 [facility] 10*3/uL SERVICES MONO x10^3 0.82 0.33 - 0.92 [facility] 10*3/uL SERVICES EOS x10^3 0.19 0.03 - 0.39 [facility] 10*3/uL SERVICES BASO x10^3 0.05 0.01 - 0.07 [facility] 10*3/uL SERVICES Specimen Blood - ARM, LEFT Performing Organization Address City/[facility] Phone Number [facility] CLIA: [id number], [address] [place] [address] [phone] [facility] PHOSPHORUS (11/15/2019 5:46 PM PALS NURSE) PHOSPHORUS 3.2 2.5 - 5.0 mg/dL [facility] Specimen Blood - ARM, LEFT Performing Organization Address [facility] Phone Number [facility] CLIA: [id number], [address] [place] [address] [facility] MAGNESIUM (11/15/2019 5:46 PM PALS NURSE) MAGNESIUM 1.8 1.7 - 2.4 mg/dL [facility] Specimen Blood - ARM, LEFT Performing Organization Address [facility] [place] Phone Number [facility] CLIA: [id number], [address] [address] [phone] [facility] TEST, SERUM (11/15/2019 5:46 PM PALS NURSE) PREG SERUM Negative [facility] Specimen Blood - ARM, LEFT Narrative Performed At Less than 10 IU/L. If low titer or ectopic is [facility] suspected, resubmit specimen in 48-72 hours. Performing Organization Address [facility] Phone Number [facility] CLIA: [id number], [address] [address] [phone] [facility] LIPASE (11/15/2019 5:46 PM PALS NURSE) LIPASE 212 0 - 220 U/L [facility] Specimen Blood - ARM, LEFT Performing Organization Address City/[facility]/Zipcode Phone Number [facility] CLIA: [id number], [address] [place], [place] [address] [facility] COMP. METABOLIC PANEL (10912) (11/15/2019 5:46 PM PALS NURSE) NA 136 135 - 145 [facility] mmol/L SERVICES K 4.1 3.5 - 5.0 [facility] mmol/L SERVICES CL 95 (L) 98 - 108 mmol/L [facility] CO2 TOTAL 28 23 - 31 mmol/L [facility] AGAP 13 2 - 16 [facility] BUN 28 (H) 7 - 23 mg/dL [facility] GLUCOSE 292 (H) 70 - 110 mg/dL [facility] CREATININE 2.19 (H) 0.50 - 1.04 [facility] mg/dL SERVICES TOTAL BILI 0.6 0.1 - 1.1 mg/dL [facility] CALCIUM 9.3 8.6 - 10.6 [facility] mg/dL SERVICES T PROTEIN 6.2 (L) 6.3 - 8.2 g/dL [facility] ALBUMIN 3.8 3.5 - 5.0 g/dL [facility] ALK PHOS 87 34 - 122 U/L [facility] ALTv 14 5 - 35 U/L [facility] AST(SGOT) 17 13 - 40 U/L [facility] eGFR Calculation 25.1 mL/min/1.73m2 [facility] (Non- SERVICES [place]) eGFR Calculation 30.4 mL/min/1.73m2 [facility] () SERVICES Specimen Blood - ARM, LEFT Narrative Performed At Association of Glomerular Filtration Rate (GFR) and Staging [facility] of Kidney Disease* + + [...] tests). Performing Organization Address City/State/Zipcode Phone Number [facility] CLIA: [id number], [address] [address] [phone] [facility] POCT GLUCOSE (AUTOMATED) (11/15/2019 5:10 PM PALS NURSE) [facility] POCT GLU 271 (H) 70 - 110 mg/dL [facility] Specimen Blood Performing Organization Address City/State/Zipcode Phone Number [facility] CLIA: [id number], [address] [address] [phone] [facility] documented in this encounter Visit Diagnoses Diagnosis Intractable nausea and vomiting - Primary Persistent vomiting Vomiting, intractability of vomiting not specified, presence of nausea not specified, unspecified vomiting type Hyperglycemia Other abnormal glucose Type 2 diabetes mellitus without complication, unspecified whether half-way insulin use Stage 3 chronic kidney disease Gastroparesis Nausea and vomiting, intractability of vomiting not specified, unspecified vomiting type Type 2 diabetes mellitus with stage 3 chronic kidney disease, with long-term current use of insulin documented in this encounter Administered Medications Medication Order MAR Action Action Date Dose Rate Site acetaminophen (TYLENOL) tablet Given 11/25/2019 6:20 AM PALS NURSE 650 mg 650 mg 650 mg, Oral, Q6HPRN, Starting Sat11/16/19 at 0110, Until Discontinued, Routine, Pain (scale 1-3) Given 11/23/2019 9:02 AM PALS NURSE 650 mg Given 11/22/2019 10:26 AM PALS NURSE 650 mg amLODIPine (NORVASC) tablet 10 mg Given 11/26/2019 8:07 AM PALS NURSE 10 mg 10 mg, Oral, DAILY, First dose on Sat11/16/19 at 0900, Until Discontinued, Routine Given 11/25/2019 8:43 AM PALS NURSE 10 mg Given 11/24/2019 8:20 AM PALS NURSE 10 mg carvediloL (COREG) tablet 37.5 mg Given 11/26/2019 8:07 AM PALS NURSE 37.5 mg 37.5 mg, Oral, BID MEALS, First dose on Sat11/16/19 at 0800, Until Discontinued, Routine Given 11/25/2019 5:57 PM PALS NURSE 37.5 mg Given 11/25/2019 8:43 AM PALS NURSE 37.5 mg dexAMETHasone (DECADRON) tablet 3 mg Given 11/26/2019 8:10 AM PALS NURSE 3 mg 3 mg, Oral, Q12H ABX, First dose on Sat11/25/19 at 2200, Until Discontinued, Routine Given 11/25/2019 8:50 PM PALS NURSE 3 mg furosemide (LASIX) tablet 40 mg 40 mg, Oral, DAILY, First dose on Sat11/27/19 at 0900, Until Discontinued, Routine heparin (porcine) injection Given 11/26/2019 5:19 AM PALS NURSE 5,000 Units Abdomen-SC 5,000 Units 5,000 Units, Subcutaneous, Q8H, First dose on Sat11/16/19 at 0600, Until Discontinued, Routine Given 11/25/2019 8:50 PM PALS NURSE 5,000 Units Abdomen-SC Given 11/25/2019 2:30 PM PALS NURSE 5,000 Units Abdomen-SC hydrALAZINE (APRESOLINE) tablet 25 mg 25 mg, Oral, Q6HPRN, Starting Sat11/17/19 at 1107, Until Discontinued, Routine , sbp > 185 insulin NPH (HUMULIN N) injection Given 11/26/2019 8:11 AM PALS NURSE 9 Units Abdomen-SC 9 Units 9 Units (rounded from 8.788 Units=0.13 Units/kg 67.6 kg), Subcutaneous, QAM+HS, First dose on Sat11/26/19 at 0900, Until Discontinued, Routine insulin regular human (HUMULIN R) Given 11/26/2019 8:11 AM PALS NURSE 4 Units Abdomen-SC injection 4 Units 4 Units, Subcutaneous, BID MEALS, First dose on Sat11/26/19 at 0800, Until Discontinued, Routine lidocaine 1% (PF) (XYLOCAINE) injection 5 mL 5 mL, Subcutaneous, PRN, Starting Sat11/24/19 at 1110, Until Discontinued, Routine, Local anesthesia metoclopramide HCl (REGLAN) tablet 10 mg Given 11/26/2019 12:15 PM PALS NURSE 10 mg 10 mg, Oral, AC, First dose on Sat11/25/19 at 1630, Until Discontinued, ELIJAH Given 11/26/2019 8:07 AM PALS NURSE 10 mg Given 11/25/2019 5:57 PM PALS NURSE 10 mg NaCl 0.9% (NS) injection 10 mL 10 mL, Slow IV Push, PRN, Starting Sat11/24/19 at 1110, Until Discontinued, Routine, 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 ondansetron (ZOFRAN) tablet 4 mg 4 mg, Oral, Q6HPRN, Starting Sat11/25/19 at 1528, Until Discontinued, Routine, Nausea and Vomiting (N/V), N/V alternating with Promethazine pantoprazole (PROTONIX) EC tablet 40 mg Given 11/26/2019 8:07 AM PALS NURSE 40 mg 40 mg, Oral, BID, First dose on Sat11/26/19 at 0800, Until Discontinued, Routine Polyethylene Glycol 3350 (MIRALAX) powder 34 g Given 11/26/2019 8:07 AM PALS NURSE 34 g 34 g, Oral, DAILY, First dose on Sat11/17/19 at 0900, Until Discontinued, Routine Given 11/24/2019 8:17 AM PALS NURSE 34 g Given 11/23/2019 9:02 AM PALS NURSE 34 g proMETHazine (PHENERGAN) tablet 25 mg 25 mg, Oral, Q6HPRN, Starting Sat11/25/19 at 1528, Until Discontinued, Routine , Nausea and Vomiting (N/V), N/V alternating with Ondansetron scopolamine transdermal (TRANSDERM-SCOP) Given 11/24/2019 8:20 AM PALS NURSE 1.5 mg patch 1.5 mg 1.5 mg, Topical, Administer over 72 Hours, Q72H, First dose on Sat11/18/19 at 0815, Until Discontinued, Routine Applied 11/21/2019 10:02 AM PALS NURSE 1.5 mg Given 11/18/2019 9:10 AM PALS NURSE 1.5 mg Right Ear Sliding Scale Insulin-Regular + Fsbg Given 11/26/2019 12:16 PM PALS NURSE 2 Units Right Arm Testing Subcutaneous, AC+HS, First dose on Sat11/16/19 at 0730, Until Discontinued, Routine Given 11/26/2019 8:10 AM PALS NURSE 2 Units Abdomen-SC Given 11/25/2019 8:50 PM PALS NURSE 3 Units Abdomen-SC Medication Order MAR Action Action Date Dose Rate Site acetaminophen ADULT (OFIRMEV) Given 11/16/2019 11:31 AM PALS NURSE 1,000 mg injection 1,000 mg 1,000 mg, IV Infusion, Administer over 15 Minutes, ONCE NOW, 1 dose, Sat11/16/19 at 1115, Routine, Indication: Non-perioperative Patient, Approved by: Per Policy (NPO Status) acetaminophen ADULT ([facility]) injection Given 11/22/2019 12:55 PM PALS NURSE 1,000 mg 1,000 mg 1,000 mg, IV Infusion, Administer over 15 Minutes, ONCE NOW, 1 dose, [place] 11/22/19 at 1115, Routine, Indication: Non-perioperative Patient, Approved by: Per Policy (NPO Status) dexamethasone (DECADRON) 4 mg in NaCl 0.9% New Bag 11/25/2019 2:24 PM PALS NURSE 4 mg (NS) piggyback 4 mg, IV Piggyback, Q12H ABX, First dose on Sat11/24/19 at 1130, Until Discontinued, 50 mL New Bag 11/25/2019 12:13 AM PALS NURSE 4 mg New Bag 11/24/2019 3:43 PM PALS NURSE 4 mg diphenhydrAMINE (BENADRYL) injection 25 mg Given 11/22/2019 12:56 PM PALS NURSE 25 mg 25 mg, Slow IV Push, Q6H ABX, First dose on Sat11/22/19 at 1215, Until Discontinued, Routine diphenhydrAMINE (BENADRYL) injection 25 mg Given 11/24/2019 2:15 AM PALS NURSE 25 mg 25 mg, Slow IV Push, Q12H ABX, First dose on Sat11/23/19 at 0100, Until Discontinued, Routine Given 11/23/2019 1:05 PM PALS NURSE 25 mg Given 11/23/2019 1:58 AM PALS NURSE 25 mg diphenhydrAMINE (BENADRYL) injection 25 mg Given 11/25/2019 2:31 PM PALS NURSE 25 mg 25 mg, Slow IV Push, Q6H ABX, First dose on Sat11/24/19 at 0815, Until Discontinued, Routine Given 11/25/2019 8:42 AM PALS NURSE 25 mg Given 11/25/2019 2:17 AM PALS NURSE 25 mg erythromycin (ERYTHROCIN) 200 mg in NaCl Given 11/25/2019 6:20 AM PALS NURSE 200 mg 0.9% (NS) piggyback 200 mg, IV Piggyback, Q8H ABX, First dose on Sat11/22/19 at 1215, Until Discontinued, 250 mL, Reason for Anti-Infective: Empiric Therapy for Suspected Infection, Empiric Therapy Site: Abdominal, Duration of therapy: 7 days Given 11/24/2019 11:10 PM PALS NURSE 200 mg Given 11/24/2019 4:20 PM PALS NURSE 200 mg erythromycin (ERYTHROCIN) 500 mg in NaCl Given 11/17/2019 5:44 PM PALS NURSE 500 mg 0.9% (NS) piggyback 500 mg, IV Piggyback, ONCE, 1 dose, Sat11/17/19 at 1445, 250 mL, Reason for Anti-Infective: Documented Infection, Documented Infection Site: Abdominal, Duration of Therapy: 7 days flu vaccine 6 months and up Given 11/21/2019 4:36 PM PALS NURSE 0.5 mL Left Deltoid-IM (FLUZONE QUAD (PF)) syringe 0.5 mL 0.5 mL, Intramuscular, ONCE, 1 dose, 11/21/19 at 1400, Routine furosemide (LASIX) injection 20 mg Given 11/19/2019 11:44 AM PALS NURSE 20 mg 20 mg, Slow IV Push, ONCE, 1 dose, [place] 11/19/19 at 1145, Routine furosemide (LASIX) injection 40 mg Given 11/16/2019 8:55 PM PALS NURSE 40 mg 40 mg, Slow IV Push, Q12H, First dose on Sat11/16/19 at 0115, Until Discontinued, Routine Given 11/16/2019 7:56 AM PALS NURSE 40 mg Given 11/16/2019 1:59 AM PALS NURSE 40 mg furosemide (LASIX) injection 40 mg Given 11/25/2019 12:04 PM PALS NURSE 40 mg 40 mg, Slow IV Push, ONCE, 1 dose, 11/25/19 at 1115, Routine furosemide (LASIX) tablet 40 mg Given 11/18/2019 6:24 PM PALS NURSE 40 mg 40 mg, Oral, QAM+PM, First dose on Sat11/17/19 at 0900, Until Discontinued, Routine Given 11/18/2019 9:14 AM PALS NURSE 40 mg Given 11/17/2019 9:44 PM PALS NURSE 40 mg furosemide (LASIX) tablet 40 mg Given 11/21/2019 9:58 AM PALS NURSE 40 mg 40 mg, Oral, DAILY, First dose on Sat11/20/19 at 1130, Until Discontinued, Routine Given 11/20/2019 11:39 AM PALS NURSE 40 mg furosemide (LASIX) tablet 40 mg Given 11/26/2019 8:07 AM PALS NURSE 40 mg 40 mg, Oral, QAM+PM, First dose on Sat11/25/19 at 1700, Until Discontinued, Routine Given 11/25/2019 5:57 PM PALS NURSE 40 mg insulin NPH (HUMULIN N) injection Given 11/25/2019 8:52 PM PALS NURSE 7 Units Abdomen-SC 7 Units 7 Units (rounded from 6.76 Units=0.1 Units/kg 67.6 kg), Subcutaneous, QAM+HS, First dose on Sat11/18/19 at 2100, Until Discontinued, Routine Given 11/25/2019 8:47 AM PALS NURSE 7 Units Abdomen-SC Given 11/24/2019 10:36 PM PALS NURSE 7 Units Abdomen-SC insulin NPH and regular human Given 11/16/2019 5:14 PM PALS NURSE 10 Units Abdomen-SC 70-30 (HUMULIN 70-30 U-100 INSULIN) 100 unit/mL (70-30) injection 10 Units 10 Units, Subcutaneous, BIDAC, First dose on Sat11/16/19 at 0730, Until Discontinued, Routine Given 11/16/2019 8:52 AM PALS NURSE 10 Units Abdomen-SC insulin NPH and regular human Given 11/17/2019 5:51 PM PALS NURSE 5 Units Abdomen-SC 70-30 (HUMULIN 70-30 U-100 INSULIN) 100 unit/mL (70-30) injection 10 Units 10 Units, Subcutaneous, BIDAC, First dose on Sat11/17/19 at 0930, Until Discontinued, Routine Given 11/17/2019 10:34 AM PALS NURSE 5 Units Abdomen-SC insulin regular human (HUMULIN R) Given 11/25/2019 5:56 PM PALS NURSE 3 Units Abdomen-SC injection 3 Units 3 Units, Subcutaneous, BID MEALS, First dose on Sat11/18/19 at 1700, Until Discontinued, Routine Given 11/25/2019 8:53 AM PALS NURSE 3 Units Abdomen-SC Given 11/21/2019 6:35 PM PALS NURSE 3 Units Right Upper Arm-SC KCL (KLOR-CON M10) tablet 10 mEq Given 11/17/2019 10:56 AM PALS NURSE 10 mEq 10 mEq, Oral, ONCE NOW, 1 dose, Sat11/17/19 at 0800, Routine KCL (POTASSIUM CHLORIDE) 20 mEq in NaCl 0.9% Given 11/19/2019 6:04 PM PALS NURSE 20 mEq (NS) 100 mL piggyback 20 mEq, IV Piggyback, ONCE, 1 dose, [facility] 11/19/19 at 0815, 100 mL KCL (POTASSIUM CHLORIDE) 20 mEq in NaCl 0.9% Given 11/21/2019 11:10 AM PALS NURSE 20 mEq (NS) 100 mL piggyback 20 mEq, IV Piggyback, ONCE, 1 dose, [place] 11/21/19 at 0815, 100 mL KCL (POTASSIUM CHLORIDE) 40 mEq in NaCl 0.9% Given 11/19/2019 10:06 AM PALS NURSE 40 mEq (NS) 250 mL piggyback 40 mEq, IV Piggyback, ONCE, 1 dose, [facility] 11/19/19 at 0815, 250 mL KCL (POTASSIUM CHLORIDE) 40 mEq in NaCl 0.9% Given 11/20/2019 2:02 AM PALS NURSE 40 mEq (NS) 250 mL piggyback 40 mEq, IV Piggyback, ONCE, 1 dose, [facility] 11/20/19 at 0045, 250 mL lactated ringers IV infusion New Bag 11/23/2019 9:02 AM PALS NURSE 1,000 mL 50 mL /hr 1,000 mL at 50 mL/hr, 1,000 mL, IV Infusion, CONTINUOUS, Starting 11/22/19 at 1215, Until Sat11/24/19 at 1032, Routine New Bag 11/22/2019 1:04 PM PALS NURSE 1,000 mL 50 mL/hr maalox:diphenhydrAMINE:lidocaine 2 % viscous Given 11/16/2019 12:10 PM PALS NURSE 15 mL 1:1:1 (FIRST-MOUTHWASH BLM) oral suspension 15 mL 15 mL, Oral, ONCE, 1 dose, 11/16/19 at 0745, Routine magnesium sulfate in water 2 gram/50 mL (4 %) New Bag 11/19/2019 9:49 AM PALS NURSE 2 g infusion 2 g 2 g, IV Piggyback, ONCE, 1 dose, [facility] 11/19/19 at 0815, Routine metoclopramide HCl (REGLAN) 10 mg in NaCl Given 11/18/2019 7:11 PM PALS NURSE 10 mg 0.9% (NS) piggyback 10 mg, IV Piggyback, Q6H ABX, First dose on Sat11/16/19 at 0745, Until Discontinued, 50 mL Given 11/18/2019 2:59 PM PALS NURSE 10 mg Given 11/18/2019 9:15 AM PALS NURSE 10 mg metoclopramide HCl (REGLAN) 10 mg in NaCl Given 11/19/2019 6:04 PM PALS NURSE 10 mg 0.9% (NS) piggyback 10 mg, IV Piggyback, TIDAC, First dose on Sat11/19/19 at 1645, Until Discontinued, 50 mL metoclopramide HCl (REGLAN) 10 mg in NaCl Given 11/20/2019 11:21 AM PALS NURSE 10 mg 0.9% (NS) piggyback 10 mg, IV Piggyback, TIDAC, 1 dose, First dose on Sat11/20/19 at 0915, 50 mL metoclopramide HCl (REGLAN) 10 mg in NaCl Given 11/25/2019 8:42 AM PALS NURSE 10 mg 0.9% (NS) piggyback 10 mg, IV Piggyback, AC, First dose on Sat11/22/19 at 1130, Until Discontinued, 50 mL Given 11/24/2019 5:18 PM PALS NURSE 10 mg Given 11/24/2019 8:17 AM PALS NURSE 10 mg metoclopramide HCl (REGLAN) 10 mg in NaCl Given 11/25/2019 12:04 PM PALS NURSE 10 mg 0.9% (NS) piggyback 10 mg, IV Piggyback, AC, 1 dose, First dose on Sat11/25/19 at 1130, 50 mL metoclopramide HCl (REGLAN) injection 10 mg Given 11/15/2019 8:53 PM PALS NURSE 10 mg 10 mg, Slow IV Push, ONCE, 1 dose, [place] 11/15/19 at 2145, ELIJAH metoclopramide HCl (REGLAN) tablet 10 mg Given 11/21/2019 8:35 PM PALS NURSE 10 mg 10 mg, Oral, TID, First dose on Sat11/20/19 at 1400, Until Discontinued, Routine Given 11/21/2019 12:42 PM PALS NURSE 10 mg Given 11/21/2019 9:57 AM PALS NURSE 10 mg morpHINE injection 4 mg Given 11/15/2019 6:15 PM PALS NURSE 4 mg 4 mg, Slow IV Push, ONCE, 1 dose, [place] 11/15/19 at 1915, STAT morpHINE injection 4 mg Given 11/16/2019 2:24 AM PALS NURSE 4 mg 4 mg, Slow IV Push, ONCE, 1 dose, 11/16/19 at 0315, STAT NaCl 0.9% (NS) bolus infusion New Bag 11/15/2019 8:53 PM PALS NURSE 1,000 mL 999 mL/hr 1,000 mL at 999 mL/hr, 1,000 mL, IV Infusion, ONCE, 1 dose, 11/15/19 at 2145, STAT ondansetron (ZOFRAN (PF)) injection 4 mg Given 11/17/2019 2:30 AM PALS NURSE 4 mg 4 mg, Slow IV Push, Q6HPRN, Starting 11/16/19 at 0108, Until 11/17/19 at 0745, Routine, Nausea and Vomiting (N/V) Given 11/16/2019 5:14 PM PALS NURSE 4 mg Given 11/16/2019 7:54 AM PALS NURSE 4 mg ondansetron (ZOFRAN (PF)) injection 4 mg Given 11/19/2019 11:44 AM PALS NURSE 4 mg 4 mg, Slow IV Push, Q6HPRN, Starting 11/18/19 at 1001, Until [place] 11/19/19 at 1637, Routine, N/V alternating with Promethazine Given 11/18/2019 12:27 PM PALS NURSE 4 mg ondansetron (ZOFRAN (PF)) injection 4 mg Given 11/21/2019 10:13 AM PALS NURSE 4 mg 4 mg, Slow IV Push, Q6HPRN, Starting Misti 11/19/19 at 1635, Until 11/21/19 at 1156, Routine, N/V alternating with Promethazine, alternate with phenergan every 3 hours so there is always anti-emetic in system Given 11/20/2019 5:12 PM PALS NURSE 4 mg ondansetron (ZOFRAN (PF)) injection 4 mg Given 11/25/2019 6:18 AM PALS NURSE 4 mg 4 mg, Slow IV Push, Q6HPRN, Starting 11/22/19 at 1105, Until Sat11/25/19 at 1528, Routine, Nausea and Vomiting (N/V) Given 11/24/2019 4:08 AM PALS NURSE 4 mg Given 11/23/2019 9:02 AM PALS NURSE 4 mg ondansetron (ZOFRAN (PF)) injection 8 mg Given 11/15/2019 5:53 PM PALS NURSE 8 mg 8 mg, Slow IV Push, ONCE, 1 dose, 11/15/19 at 1830, ELIJAH ondansetron (ZOFRAN (PF)) injection 8 mg Given 11/17/2019 3:08 PM PALS NURSE 8 mg 8 mg, Slow IV Push, ONCE, 1 dose, 11/17/19 at 1445, Routine ondansetron (ZOFRAN) tablet 4 mg Given 11/22/2019 10:26 AM PALS NURSE 4 mg 4 mg, Oral, Q6HPRN, Starting 11/21/19 at 1156, Until 11/22/19 at 1105, Routine, Nausea and Vomiting (N/V), N/V alternating with Promethazine Given 11/22/2019 2:23 AM PALS NURSE 4 mg Given 11/21/2019 4:57 PM PALS NURSE 4 mg pantoprazole (PROTONIX) 40 mg in NaCl 0.9% Given 11/15/2019 9:03 PM PALS NURSE 40 mg (NS) 100 mL MINI-BAG 40 mg, IV Piggyback, ONCE, 1 dose, 11/15/19 at 2145, 100 mL pantoprazole (PROTONIX) 40 mg in NaCl 0.9% Given 11/25/2019 8:46 AM PALS NURSE 40 mg (NS) 100 mL MINI-BAG 40 mg, IV Piggyback, Q12H, First dose on Sat11/16/19 at 1015, Until Discontinued, 100 mL Given 11/24/2019 7:50 PM PALS NURSE 40 mg Given 11/24/2019 8:17 AM PALS NURSE 40 mg pantoprazole (PROTONIX) EC tablet 40 mg Given 11/16/2019 7:56 AM PALS NURSE 40 mg 40 mg, Oral, BID, First dose on Sat11/16/19 at 0800, Until Discontinued, Routine pneumococcal vac polyvalent Given 11/21/2019 4:37 PM PALS NURSE 0.5 mL Right Deltoid-IM (PNEUMOVAX-23) injection 0.5 mL 0.5 mL, Intramuscular, ONCE, 1 dose, 11/21/19 at 1400, Routine potassium chloride 20 mEq/100 mL Given 11/18/2019 3:01 PM PALS NURSE 20 mEq 50 mL /hr (KCL) 20 mEq/100 mL RTU IVPB 20 mEq 20 mEq, IV Piggyback, ONCE, 1 dose, 11/18/19 at 1330, 100 mL proCHLORperazine (COMPAZINE) 10 mg in NaCl Given 11/17/2019 8:35 AM PALS NURSE 10 mg 0.9% (NS) piggyback 10 mg, IV Piggyback, ONCE NOW, 1 dose, Sat11/17/19 at 0800, 50 mL proMETHazine (PHENERGAN) 25 mg in NaCl 0.9% Given 11/15/2019 6:08 PM PALS NURSE 25 mg (NS) 50 mL piggyback 25 mg, IV Piggyback, ONCE, 1 dose, 11/15/19 at 1830, 50 mL proMETHazine (PHENERGAN) 25 mg in NaCl 0.9% Given 11/17/2019 10:57 AM PALS NURSE 25 mg (NS) 50 mL piggyback 25 mg, IV Piggyback, Q4HPRN, Starting 11/16/19 at 0108, Until Sat11/17/19 at 1307, 50 mL Given 11/17/2019 12:26 AM PALS NURSE 25 mg Given 11/16/2019 5:49 AM PALS NURSE 25 mg proMETHazine (PHENERGAN) 25 mg in NaCl 0.9% Given 11/18/2019 8:44 PM PALS NURSE 25 mg (NS) 50 mL piggyback 25 mg, IV Piggyback, Q4HPRN, Starting Sat11/17/19 at 1331, Until Misti 11/19/19 at 1043, 50 mL Given 11/17/2019 11:12 PM PALS NURSE 25 mg proMETHazine (PHENERGAN) 25 mg in NaCl 0.9% Given 11/19/2019 2:26 PM PALS NURSE 25 mg (NS) 50 mL piggyback 25 mg, IV Piggyback, Q4H, First dose on Misti 11/19/19 at 1200, Until Discontinued, 50 mL proMETHazine (PHENERGAN) 25 mg in NaCl 0.9% Given 11/24/2019 9:30 PM PALS NURSE 25 mg (NS) 50 mL piggyback 25 mg, IV Piggyback, Q6HPRN, Starting 11/22/19 at 1105, Until Sat11/25/19 at 1528, 50 mL Given 11/23/2019 10:51 PM PALS NURSE 25 mg Given 11/23/2019 1:04 PM PALS NURSE 25 mg proMETHazine (PHENERGAN) tablet 25 mg Given 11/22/2019 6:11 AM PALS NURSE 25 mg 25 mg, Oral, Q6HPRN, Starting 11/21/19 at 1156, Until 11/22/19 at 1105, Routine, Nausea and Vomiting (N/V), N/V alternating with Ondansetron Given 11/21/2019 10:16 PM PALS NURSE 25 mg sucralfate (CARAFATE) tablet 1 g Given 11/19/2019 9:25 AM PALS NURSE 1 g 1 g, Oral, AC+HS, First dose on 11/16/19 at 0730, Until Discontinued, Routine Given 11/18/2019 9:20 PM PALS NURSE 1 g Given 11/18/2019 6:24 PM PALS NURSE 1 g trimethobenzamide (TIGAN) Given 11/18/2019 9:09 AM PALS NURSE 200 mg Right Deltoid-IM injection 200 mg 200 mg, Intramuscular, ONCE NOW, 1 dose, 11/18/19 at 0815, Routine documented in this encounter
--- OUTSIDE RECORDS SUMMARY | 2019-12-25 06:20 | XMS REPORT | Summary of Care ---
:1980 Author Organization [facility] - [facility] Address [address] [place] [id number] Care Team Providers Name Role Phone Liv Khan Primary Care Provider Reason for Referral Radiology Services (ELIJAH) Status Reason Specialty Diagnoses / Referred By Referred To Procedures Contact Contact New Request Diagnostic Diagnoses Nephrotic syndrome Deya Perez Radiology Procedures XR CHEST 2 VW XR CHEST 2 SUDHA Shukla MD [address] [place] [id number] Radiology Services (STAT) Status Reason Specialty Diagnoses / Referred By Referred To Procedures Contact Contact New Request Diagnostic Diagnoses Nephrotic syndrome Deya Perez Radiology Procedures XR CHEST 1 SUDHA Shukla MD [address] [place] [id number] MRI/CAT Scan (ELIJAH) Status Reason Specialty Diagnoses / Referred By Referred To Procedures Contact Contact New Request Diagnostic Diagnoses Intractable nausea and vomiting Torrie Maciel, Radiology Procedures MR BRAIN W WO CONTRAST [address] [place] [id number] Reason for Visit Reason Comments Vomiting Auth/Cert Status Reason Specialty Diagnoses / Referred By Referred To Procedures Contact Contact Emergency Medicine [facility]Emergency Dept [address] [place] [phone] Encounter Details Date Type Department Care Team Description 12/02/2019 - Hospital Encounter Medicine (DAVIDA 10A) Waldo De Jesus MD [address] [facility] [id number] [place], [place] [id number] Intractable nausea 12/12/2019 7[address] [facility] Torrie Maciel MD [address] [place] [phone] [place] [address] Deya Perez MD [address] [facility] [id number] [place], [place] [id number] [phone] Allergies No Known Allergiesdocumented as of this encounter (statuses as of 12/12/2019) Medications Medication Sig Dispensed Refills Start End Status Date Date metoclopramide HCl Take 5 mL by 473 mL 2 12/12/19 Active 5 mg/5 mL mouth 4 (four) 20 solutionIndications times daily. : Intractable nausea and vomiting, Type 2 diabetes mellitus without complication, unspecified whether intermediate manager insulin use, Nephrotic syndrome sucralfate 1 gram Take 1 tablet 120 tablet 3 12/12/19 Active tabletIndications: by mouth 20 Intractable nausea before meals and vomiting, Type and at 2 diabetes mellitus bedtime. without complication, unspecified whether senior care insulin use, Nephrotic syndrome erythromycin Take 4.5 mL by 200 mL 1 12/12/19 Active ethylsuccinate 200 mouth every 8 20 mg/5 mL (eight) hours. suspensionIndicatio ns: Intractable nausea and vomiting, Type 2 diabetes mellitus without complication, unspecified whether senior care insulin use, Nephrotic syndrome ondansetron 4 mg Take 1 tablet 60 tablet 2 12/12/19 Active tabletIndications: by mouth every 20 Intractable nausea 8 (eight) and vomiting hours as needed for Nausea and Vomiting (N/V). diphenhydrAMINE 25 Take 1 tablet 30 tablet 0 12/12/19 Active mg by mouth at 20 tabletIndications: bedtime as Intractable nausea needed and vomiting, Type (nausea). 2 diabetes mellitus without complication, unspecified whether senior care insulin use, Nephrotic syndrome amLODIPine 5 mg Take 1 tablet 14 tablet 0 12/12/19 Active tabletIndications: by mouth 20 Intractable nausea daily. and vomiting, Type 2 diabetes mellitus without complication, unspecified whether intermediate manager insulin use, Nephrotic syndrome carvediloL 25 mg Take 1 tablet 28 tablet 0 12/12/19 Active tabletIndications: by mouth 2 20 Intractable nausea (two) times and vomiting, Type daily with 2 diabetes mellitus meals. without complication, unspecified whether intermediate manager insulin use, Nephrotic syndrome diphenhydrAMINE 25 Take 1 tablet 56 tablet 0 12/12/19 Active mg by mouth 4 20 tabletIndications: (four) times Intractable nausea daily. and vomiting, Type 2 diabetes mellitus without complication, unspecified whether intermediate manager insulin use, Nephrotic syndrome pantoprazole 40 mg Take 1 tablet 60 tablet 1 12/12/19 Active EC by mouth 2 20 tabletIndications: (two) times Intractable nausea daily. and vomiting, Type 2 diabetes mellitus without complication, unspecified whether senior care insulin use, Nephrotic syndrome Polyethylene Glycol Take 2 Packets 30 Packet 1 12/12/19 Active 3350 17 gram by mouth 20 powderIndications: daily. Intractable nausea and vomiting, Type 2 diabetes mellitus without complication, unspecified whether senior care insulin use, Nephrotic syndrome insulin NPH 100 inject 12 2 Vial 0 12/13/19 Active unit/mL Units under 20 injectionIndication the skin every s: Type 2 diabetes morning. mellitus without complication, unspecified whether senior care insulin use insulin NPH 100 inject 10 2 Vial 0 12/12/19 Active unit/mL Units under 20 injectionIndication the skin every s: Type 2 diabetes evening. mellitus without complication, unspecified whether intermediate manager insulin use insulin regular inject 7 Units 2 Vial 0 12/12/19 Active human 100 unit/mL under the skin 20 injectionIndication 2 (two) times s: Type 2 diabetes daily before mellitus without breakfast and complication, dinner. unspecified whether intermediate manager insulin use pantoprazole 40 mg Take 1 tablet 60 tablet 2 11/12/19 Discontinued EC by mouth 2 20 020 tabletIndications: (two) times Gastritis without daily. bleeding, unspecified chronicity, unspecified gastritis type sucralfate 1 gram Take 1 tablet 120 tablet 2 11/12/19 Discontinued tabletIndications: by mouth 20 020 Gastritis without before meals bleeding, and at unspecified bedtime. chronicity, unspecified gastritis type carvediloL 25 mg Take 1.5 90 tablet 1 11/12/19 Discontinued tabletIndications: tablets by 20 020 Hypertension, mouth 2 (two) unspecified type times daily with meals. amLODIPine 10 mg Take 1 tablet 30 tablet 2 11/13/19 Discontinued tabletIndications: by mouth 20 020 Hypertension, daily. unspecified type furosemide 80 mg Take 0.5 30 tablet 2 11/21/19 Discontinued tabletIndications: tablets by 20 020 Stage 3 chronic mouth daily. kidney disease Polyethylene Glycol Take 2 Packets 30 Packet 2 11/22/19 Discontinued 3350 17 gram by mouth 20 020 powderIndications: daily. Intractable nausea and vomiting, Gastroparesis scopolamine Apply 1 Patch 10 Each 0 11/24/19 Discontinued transdermal 1 mg to area(s) 20 020 over 3 days every 72 patchIndications: (seventy-two) Intractable nausea hours. and vomiting, Gastroparesis proMETHazine 12.5 Insert 1 6 Suppository 1 11/21/19 Discontinued mg Suppository 020 suppositoryIndicati into rectum ons: Intractable every 4 (four) nausea and hours as vomiting, needed for Gastroparesis Nausea and Vomiting (N/V). ondansetron 8 mg Take 1 tablet 21 tablet 1 11/21/19 Discontinued tabletIndications: by mouth every 20 020 Nausea and 8 (eight) vomiting, hours as intractability of needed for vomiting not Nausea and specified, Vomiting unspecified (N/V). vomiting type proMETHazine 25 mg Take 1 tablet 14 tablet 0 11/26/19 Discontinued tabletIndications: by mouth every 20 020 Intractable nausea 6 (six) hours and vomiting, as needed for Gastroparesis Nausea and Vomiting (N/V) or N/V alternating with Ondansetron. metoclopramide HCl Take 1 tablet 42 tablet 0 11/26/19 Discontinued 10 mg by mouth 20 020 tabletIndications: before meals Gastroparesis for 14 days. insulin NPH and inject 13 1 Vial 3 11/26/19 Discontinued regular human 70-30 Units under 20 020 100 unit/mL (70-30) the skin 2 injectionIndication (two) times s: Type 2 diabetes daily before mellitus with stage breakfast and 3 chronic kidney dinner for 2 disease, with days, THEN 10 long-term current Units 2 (two) use of insulin times daily before breakfast and dinner for 90 days. metoclopramide HCl Take 5 mL by 473 mL 0 12/11/19 Discontinued 5 mg/5 mL mouth 4 (four) 20 020 solutionIndications times daily. : Intractable nausea and vomiting, Type 2 diabetes mellitus without complication, unspecified whether senior care insulin use, Nephrotic syndrome pantoprazole 40 mg Take 1 tablet 30 tablet 1 12/11/19 Discontinued EC by mouth 2 20 020 tabletIndications: (two) times Intractable nausea daily. and vomiting, Type 2 diabetes mellitus without complication, unspecified whether intermediate manager insulin use, Nephrotic syndrome carvediloL 25 mg Take 1 tablet 30 tablet 1 12/11/19 Discontinued tabletIndications: by mouth 2 20 020 Intractable nausea (two) times and vomiting, Type daily with 2 diabetes mellitus meals. without complication, unspecified whether intermediate manager insulin use, Nephrotic syndrome amLODIPine 5 mg Take 1 tablet 30 tablet 0 12/12/19 Discontinued tabletIndications: by mouth 20 020 Intractable nausea daily. and vomiting, Type 2 diabetes mellitus without complication, unspecified whether senior care insulin use, Nephrotic syndrome Polyethylene Glycol Take 2 Packets 30 Packet 1 12/12/19 Discontinued 3350 17 gram by mouth 20 020 powderIndications: daily. Intractable nausea and vomiting, Type 2 diabetes mellitus without complication, unspecified whether senior care insulin use, Nephrotic syndrome sucralfate 1 gram Take 1 tablet 60 tablet 1 12/11/19 Discontinued tabletIndications: by mouth 20 020 Intractable nausea before meals and vomiting, Type and at 2 diabetes mellitus bedtime. without complication, unspecified whether senior care insulin use, Nephrotic syndrome diphenhydrAMINE 25 Take 1 tablet 56 tablet 0 12/11/19 Discontinued mg by mouth 4 20 020 tabletIndications: (four) times Intractable nausea daily. and vomiting, Type 2 diabetes mellitus without complication, unspecified whether intermediate manager insulin use, Nephrotic syndrome diphenhydrAMINE 25 Take 1 tablet 30 tablet 0 12/11/19 Discontinued mg by mouth at 20 020 (Reorder) tabletIndications: bedtime as Intractable nausea needed and vomiting, Type (nausea). 2 diabetes mellitus without complication, unspecified whether intermediate manager insulin use, Nephrotic syndrome erythromycin Take 4.5 mL by 200 mL 1 12/11/19 Discontinued ethylsuccinate 200 mouth every 8 20 020 mg/5 mL (eight) hours. suspensionIndicatio ns: Intractable nausea and vomiting, Type 2 diabetes mellitus without complication, unspecified whether senior care insulin use, Nephrotic syndrome insulin NPH 100 inject 7 Units 10 mL 5 12/11/19 Discontinued unit/mL under the skin 20 020 injectionIndication every evening. s: Intractable nausea and vomiting, Type 2 diabetes mellitus without complication, unspecified whether intermediate manager insulin use, Nephrotic syndrome insulin NPH 100 inject 9 Units 10 mL 5 12/12/19 Discontinued unit/mL under the skin 20 020 injectionIndication every morning. s: Intractable nausea and vomiting, Type 2 diabetes mellitus without complication, unspecified whether senior care insulin use, Nephrotic syndrome insulin regular inject 5 Units 10 mL 5 12/11/19 Discontinued human 100 unit/mL under the skin 20 020 injectionIndication 2 (two) times s: Intractable daily with nausea and meals. vomiting, Type 2 diabetes mellitus without complication, unspecified whether intermediate manager insulin use, Nephrotic syndrome amLODIPine 5 mg Take 1 tablet 14 tablet 0 12/12/19 Discontinued tabletIndications: by mouth daily 20 020 Intractable nausea for 14 days. and vomiting, Type 2 diabetes mellitus without complication, unspecified whether intermediate manager insulin use, Nephrotic syndrome carvediloL 25 mg Take 1 tablet 28 tablet 0 12/11/19 Discontinued tabletIndications: by mouth 2 20 020 Intractable nausea (two) times and vomiting, Type daily with 2 diabetes mellitus meals for 14 without days. complication, unspecified whether senior care insulin use, Nephrotic syndrome diphenhydrAMINE 25 Take 1 tablet 56 tablet 0 12/11/19 Discontinued mg by mouth 4 20 020 tabletIndications: (four) times Intractable nausea daily for 14 and vomiting, Type days. 2 diabetes mellitus without complication, unspecified whether senior care insulin use, Nephrotic syndrome metoclopramide HCl Take 5 mL by 280 mL 0 12/11/19 Discontinued 5 mg/5 mL mouth 4 (four) 20 020 solutionIndications times daily : Intractable for 14 days. nausea and vomiting, Type 2 diabetes mellitus without complication, unspecified whether intermediate manager insulin use, Nephrotic syndrome pantoprazole 40 mg Take 1 tablet 28 tablet 0 12/11/19 Discontinued EC by mouth 2 20 020 tabletIndications: (two) times Intractable nausea daily for 14 and vomiting, Type days. 2 diabetes mellitus without complication, unspecified whether intermediate manager insulin use, Nephrotic syndrome sucralfate 1 gram Take 1 tablet 56 tablet 0 12/11/19 Discontinued tabletIndications: by mouth 20 020 Intractable nausea before meals and vomiting, Type and at bedtime 2 diabetes mellitus for 14 days. without complication, unspecified whether intermediate manager insulin use, Nephrotic syndrome insulin NPH 100 inject 10 1 Vial 0 12/11/19 Discontinued unit/mL Units under 20 020 (Reorder) injectionIndication the skin every s: Type 2 diabetes evening. mellitus without complication, unspecified whether senior care insulin use insulin NPH 100 inject 10 1 Vial 0 12/12/19 Discontinued unit/mL Units under 20 020 (Reorder) injectionIndication the skin every s: Type 2 diabetes morning. mellitus without complication, unspecified whether senior care insulin use insulin regular inject 7 Units 1 Vial 0 12/11/19 Discontinued human 100 unit/mL under the skin 20 020 injectionIndication 2 (two) times s: Type 2 diabetes daily with mellitus without meals. complication, unspecified whether intermediate manager insulin use erythromycin Take 4.5 mL by 189 mL 0 12/11/19 Discontinued ethylsuccinate 200 mouth every 8 20 020 mg/5 mL (eight) hours suspensionIndicatio for 14 days. ns: Intractable nausea and vomiting, Type 2 diabetes mellitus without complication, unspecified whether intermediate manager insulin use, Nephrotic syndrome insulin NPH 100 inject 18 1 Vial 0 12/12/19 Discontinued unit/mL Units under 20 020 injectionIndication the skin every s: Type 2 diabetes morning. mellitus without complication, unspecified whether intermediate manager insulin use insulin NPH 100 inject 16 1 Vial 0 12/11/19 Discontinued unit/mL Units under 20 020 injectionIndication the skin every s: Type 2 diabetes evening. mellitus without complication, unspecified whether senior care insulin use pantoprazole 40 mg Take 1 tablet 60 tablet 1 12/12/19 Discontinued EC by mouth 2 20 020 tabletIndications: (two) times Intractable nausea daily. and vomiting, Type 2 diabetes mellitus without complication, unspecified whether intermediate manager insulin use, Nephrotic syndrome ondansetron 4 mg Take 1 tablet 60 tablet 2 12/12/19 Discontinued tabletIndications: by mouth every 20 020 (Reorder) Intractable nausea 8 (eight) and vomiting hours as needed for Nausea and Vomiting (N/V). insulin NPH 100 inject 10 2 Vial 0 12/12/19 Discontinued unit/mL Units under 20 020 (Reorder) injectionIndication the skin every s: Type 2 diabetes evening. mellitus without complication, unspecified whether intermediate manager insulin use insulin NPH 100 inject 12 2 Vial 0 12/13/19 Discontinued unit/mL Units under 20 020 (Reorder) injectionIndication the skin every s: Type 2 diabetes morning. mellitus without complication, unspecified whether intermediate manager insulin use insulin regular inject 7 Units 2 Vial 0 12/12/19 Discontinued human 100 unit/mL under the skin 20 020 (Reorder) injectionIndication 2 (two) times s: Type 2 diabetes daily before mellitus without breakfast and complication, dinner. unspecified whether intermediate manager insulin use documented as of this encounter (statuses as of 12/12/2019) Active Problems Problem Noted Date Intractable nausea and vomiting 11/15/2019 Intractable vomiting 11/07/2019 Vomiting 11/07/2019 General counseling and advice for contraceptive management 05/07/2013 Overview: ICD10 Diagnosis Term Breakfast Supervisor Utility Encounter for routine gynecological examination 05/07/2013 Overview: ICD10 Diagnosis Term Breakfast Supervisor Utility Type 2 diabetes mellitus without complications 05/07/2013 Overview: 05/07/2013- Diabetes x 10 years. Previously taking po medication. ICD10 Diagnosis Term Breakfast Supervisor Utility Rubella immune 05/07/2013 Candidiasis of vulva and vagina 05/07/2013 documented as of this encounter (statuses as of 12/12/2019) Immunizations Name Administration Dates Next Due Influenza Virus Vaccine Quad .5 mL IM 6+ MO 11/21/2019 Pneumococcal Polysaccharide, PPSV23 (PNEUMOVAX) 11/21/2019 Rubella 09/06/2008 TDAP (ADACEL) VACCINE 12/11/2019 Td 05/07/2009 Twinrix (hep a/hep b) 12/11/2019 documented as of this encounter Social History [...] Sign Reading Time Taken Comments Blood Pressure 153/77 12/12/2019 11:51 AM WOOL GRADER Pulse 96 12/12/2019 11:51 AM WOOL GRADER Temperature 37 C (98.6 F) 12/12/2019 11:51 AM WOOL GRADER Respiratory Rate 18 12/12/2019 11:51 AM WOOL GRADER Oxygen Saturation 99% 12/12/2019 11:51 AM WOOL GRADER Inhaled Oxygen Concentration - - Weight 65 kg (143 lb 4.8 oz) 12/12/2019 6:01 AM WOOL GRADER bedscale Height 157.5 cm (5' 2") 12/04/2019 2:30 PM WOOL GRADER Body Mass Index 26.21 12/04/2019 2:30 PM WOOL GRADER documented in this encounter Discharge Summaries Juana Hendricks RN - 12/12/2019 12:57 PM WOOL GRADER Care Management Discharge Disposition Note (DCDN) 5-2-1 Interventions: Disease specific education;Intensive medication reconciliation/management;Teachback;Clear discharge plan;Follow-up appointments 5-2-1 Providers: Account Resolution Expert/Manager English;Nurse 5-2-1 Patient Capacity Improvements: Avoidance of adverse events/readmission Discharge Plan for ongoing care and services: N/A Is this a new referral: N/A Patient Choice completed for referred services: DME location: N/A Other DME location: Durable Medical Equipment: Home Health location: Discharge location(s): Home Patient choice completed for referred services: Discussed with patient/patients family involved in decision making: Yes Patient or family caregiver understands, and agrees with discharge plan. Community resources/referrals made or provided to patient: Yes(Good RX card, [facility] supply list, [facility]) Resources/Referrals: [facility] Resources Fact Sheets Transportation: Private Vehicle(Amarjit ([phone])) Mental Status: Alert & Oriented to Person,Place & Time Living Arrangement: Mobile Home Other living arrangement: Address of living arrangement: [address] [place] [address] [address], [place] [id number] Funding Resources: Self Pay Nursing informed of discharge plan: Name of RN informed: Estimated discharge date: 12/11/19 Time: TBD Additional Information: Patients Amarjit Gonzales [phone] will be ride home INGE/TOYA Name & Contact number: WALDEMAR Muniz BSN, RN Weekend Mobile Home Park Manager [email or web address]: [phone] The following information has been provided to the facility noted above: reason for the patient discharge or transfer; patients physical and psychosocial status; summary of care, treatment, servicesprovided to patient; and the patient progress toward goals. pAnisha witt 12/11/2019 4:32 PM WOOL GRADER Care Management Discharge Disposition Note (DCDN) 5-2-1 Interventions: Disease specific education;Intensive medication reconciliation/management;Teachback;Clear discharge plan;Follow-up appointments 5-2-1 Providers: Account Resolution Expert/Manager English;Nurse 5-2-1 Patient Capacity Improvements: Avoidance of adverse events/readmission Discharge Plan for ongoing care and services: [...] or provided to patient: Resources/Referrals: Transportation: Private Vehicle(Amarjit ([phone])) Mental Status: Alert & Oriented to Person,Place & Time Living Arrangement: Mobile Home Other living arrangement: Address of living arrangement: [address] [place] [address] [address], [place] [address] Funding Resources: Self Pay Nursing informed of discharge plan: Name of RN informed: Estimated discharge date: 12/11/19 Time: Additional Information: INGE/TOYA Name & Contact number: nAisha Coyne Ph. [phone] The following information has been provided to the facility noted above: reason for the patient discharge or transfer; patients physical and psychosocial status; summary of care, treatment, servicesprovided to patient; and the patient progress toward goals. documented in this encounter Discharge Instructions AttachmentsThe following attachments cannot be sent through Care Everywhere.Hepatitis A; Hepatitis B Vaccine injection (Niuean)Diphtheria/ Tetanus Toxoids; Pertussis Vaccine, DTP injection (Niuean)Sucralfate tablets ( Niuean)Pantoprazole tablets (Niuean)Metoclopramide tablets (Niuean) Diphenhydramine capsules or tablets (Niuean)Carvedilol tablets (Niuean) Amlodipine tablets (Niuean)Erythromycin tablets or capsules, delayed release ( Niuean)documented in this encounter Progress Notes Kingston Mariee MD - 12/11/2019 5:00 PM CST [facility] Internal Medicine Progress Note Date of Service: 12/11/2019 17:00 Chief Complaint: nausea & vomiting 24-HOUR EVENTS: - NAEO SUBJECTIVE: Patient is tolerating food, has sporadic nausea and one episode of emesis. Patient has no other complains this AM PHYSICAL EXAM: Vitals: 12/11/19 0344 12/11/19 0717 12/11/19 1224 12/11/19 1519 BP: (!) 146/73 (!) 146/71 (!) 147/66 (!) 144/73 Pulse: 94 96 91 92 Resp: 16 16 16 16 Temp: 36.8 C (98.2 F) 36.9 C (98.5 F) 36.8 C (98.3 F) 36.9 C ( 98.4 F) TempSrc: Oral Oral Oral Oral SpO2: 99% 98% 97% 95% Weight: 66 kg (145 lb 8.1 oz) Height: Intake/Output Summary (Last 24 hours) at 12/11/2019 1700 Last data filed at 12/11/2019 0625 Gross per 24 hour Intake 421 ml Output 2350 ml Net -1929 ml General: AO, resting comfortably in bed Lungs: CTAB Cardio: RRR, nl S1/S2 Abdomen: soft; no TTP on palpation, and epigastrium; non-distended; normoactive bowel sounds Extr: no edema Orthostatics are positive LABS/IMAGING - reviewed, pertinent results as below: 12/10/2019 04:59 WBC x10^3 7.23 RBC x10^6 2.93 (L) HGB 8.3 (L) HCT 25.7 (L) MCV 87.7 MCH 28.3 MCHC 32.3 RDW-SD 40.8 RDW-CV 12.6 PLT x10^3 135 (L) MPV 12.3 NRBC /100 WBC 0.0 NRBC x10^3 <0.01 12/09/2019 13:11 12/10/2019 04:59 NA 128 (L) 127 (L) K 5.1 (H) 5.1 (H) CL 96 (L) 95 (L) CO2 TOTAL 25 28 AGAP 7 4 BUN 27 (H) 32 (H) GLUCOSE 284 (H) 243 (H) CREATININE 2.37 (H) 2.26 (H) eGFR CALCULATION (non ) 22.9 24.2 eGFR CALCULATION () 27.8 29.3 12/09/2019 13:01 12/09/2019 13:11 OSMOLALITY 297 OSMO U 332 12/09/2019 19:56 12/09/2019 20:36 12/09/2019 21:12 VIC 0 4.6 VIC 30 13.3 VIC 60 17.1 ASSESSMENT/PLAN Ese Gonzales is a 39 year old female admitted to the hospital with: Intractable N/V DM2 c/b diabetic gastroparesis & probable diabetic nephropathy ? Adrenal insufficiency Hyponatremia Hyperkalemia Patient cosyntropin test was positive indicating likely adrenal insufficiency, will consult endocrinology given multiple endocrin problems - c/w Reglan 5 PO QID - c/w erythromycin 6mg/kg q8h - c/w PO Benadryl to 50 mg QID - c/w prn Tigan, Phenergan, Zofran - c/w scopolamine patch - consult Endo - aggressive glucose control - GI sign off Small pericardial effusion without clinical tamponade (unknown etiology) Anasarca Nephrotic-range proteinuria CKD 4 Suspected diabetic nephropathy Vit D def Pleural effusion, small Patient has small pleural effusion w/o tamponade which we will monitor for now, will hold lasix since patient is orthostatic negative and no signs of fluid overload rather has intravascular fluid depletion - Hold Lasix - cardiology sign off, - nephrology sign off - strict I/Os and daily weight - DVT ppx w/ LMWH - Vit D qWeekly HTN > Continue home meds - c/w amlodipine 10 mg QD and carvedilol 37.5 mg BID - prn hydralazine - will follow up with nephrology clinic to consider ACEi vs amiloride PAIN: Controlled Tylenol Prophylaxis: DVT- heparin Stress Ulcer: pantoprazole Code Status: addressed: Full code Kingston Mariee MD, PhD PGY-3 Internal Medicine Doctor# [id number] Page: [phone] END OF DAILY PROGRESS NOTE HOSPITAL COURSE Patient is a readmit to [facility]. Niuean-speaking only . Previous admission was identical with intractable n/v responsive only to steroids. Numerous agents (Zofran, Phenergan, Compazine, Tigan, erythromycin, scopolamine patch, Benadryl) showed zero efficacy. Patient continues to be nauseous andexhibits mild abdominal improvement. EGD with features of gastroparesis and LA grade C esophagitis, starting erythromycin. Nausea improving at this time. Concern for signf pericardial effusion (unknown etiology) due to CXR findings, but small on TTE. 9: 57 AM WOOL GRADER Associated attestation - Deya Perez MD - 12/12/2019 9:57 AM CSTI personally examined the patient on 12/11/[address] Mariee's resident note as written. I actively participated in the decision-making process. Please see the resident's note for additional details. Jami Moy MD - 12/11/2019 2:58 PM WOOL GRADER INSTRUCCIONES DE INSULINA [facility] 1. INSTRUCCIONES GENERALES Aura dosis de insulina deben ajustarse de acuerdo con lo que come y dependiendo de aura lecturas de azcar en la rinku. Aura objetivos de glucosa (azcar) son: rango de 120-150 mg / dL por ahora Verifique el azcar en la rinku antes del desayuno y la educational therapist O si tiene s ntomas de bajo nivel de azcar (debilidad, fatiga, sudoracin, mareos) VAS A CASA EN: 1) - Novolin 70/30 (mezcla de NPH e insulina regular) 18 unidades antes del desayuno y 16 unidades con la sharif Si no est desayunando o cenando: omita la dosis. No recomiende omitir dosis con frecuencia. Si come la mitad de la comida o si tiene un nivel de azcar en la rinku entre 80-130, d la MITADde la dosis. Si el nivel de azcar en la rinku es inferior a 80: coma y vuelva a verificar. Administre la mitadde la dosis de insulina pedrito vez que el azcar en la rinku supere los 130. 2) Seguimiento con el PCP Dr. Khan en 1-2 semanas. OTRAS INSTRUCCIONES: Llame a page mdico si tiene ms de 2 lecturas por debajo de 70 o ms de 3 por encima de 300 mg/ dL para recibir ms instrucciones. Si tiene pedrito lectura superior a 450, vuelva a verificar y, si sigue siendo andres, necesita atencin inmediata. Llame a page mdico o acuda a la michaela de emergencias / atencin urgente. Siempre lleve consigo tabletas de glucosa y un paquete de galletas de mantequilla de man, en isaias de que tenga un nivel bajo de azcar (debilidad, fatiga, sudoracin, mareos). Obtenga el kit deemergencia de glucagn para emergencias bajas en azcar y no puede comer / beber para aumentar el azcar. LLMENOS a travs del operador del hospital ([phone]) si tiene pedrito pregunta urgente sobre aura instrucciones de insulina o page mdico de cabecera. Si vomita y azucara en 300s, acuda a la michaela de emergencias. --- Faculty Attestation: I agree with insulin instructions for discharge. Please see today's progress note. See Angolan version Signed: Kristina Moy MD Jami Harvey MD - 12/11/2019 2:49 PM CSTINSULIN INSTRUCTIONS AFTER LEAVING THE HOSPITAL 1. GENERAL INSTRUCTIONS Your insulin doses need to be adjusted according to what you eat and depending on you blood sugar readings Your glucose (sugar) goals are: 120-150 mg/dL range for now Check blood sugars before breakfast and dinner OR if you have symptoms of low sugar (weakness, fatigue, sweats, dizziness) YOU ARE GOING HOME ON: 1)- Novolin 70/30 (mix of NPH and regular insulin) 18 units before breakfast and 16 units with dinner If not eating breakfast or dinner: Skip dose. Do not recommend skipping doses frequently. If eating half the meal or if blood sugar between 80-130 give HALF the dose. If blood sugar less than 80 : Eat a meal and recheck. Give half dose of insulin once blood sugar over 130. 2) Follow up with PCP Dr Khan in 1-2 weeks. OTHER INSTRUCTIONS: Call your doctor if you have more than 2 readings under 70 or more than 3 over 300 mg/dL to receive further instructions. If you have a reading over 450, recheck and if still high, you need immediate attention. Call your doctor or come to emergency room/urgent care. Always have with you glucose tablets and a pack of peanut butter crackers, in case you have a low sugar (weakness, fatigue, sweats, dizziness). Get glucagon emergency kit to have for low sugar emergencies and you cannot eat/ drink to get sugar up.. CALL us through hospital power plant operator apprentice ([phone]) if urgent question regarding your insulin instructions or your primary doctor. If vomiting and sugar in 300s, come to ER. Jami Harvey MD - 12/11/2019 9:44 AM CST Endocrinology Progress Note DATE OF SERVICE: 12/11/2019 Reason for consult :dm mgt SUBJECTIVE/24 hr events ? Still complains of nausea. Diet is poor. Possible discharge today. bg range 11-11- 180-299 Total daily dose of Insulin from 11-11: 30 units Scheduled daily dose of Insulin today:26 units OBJECTIVE ? General Examination BP (!) 146/71 | Pulse 96 | Temp 36.9 C (98.5 F) (Oral) | Resp 16 | Ht 1.575 m (5' 2") | Wt 66 kg (145 lb 8.1 oz) | LMP 11/18/2019 (Approximate) | SpO2 98% | BMI 26.61 kg/m Body mass index is 26.61 kg/m. General: Patient appears well in no apparent distress HEENT: No facial plethora, periorbital edema, lateral thinning of eyebrows, no oral hyperpigmentation Neck: symmetric, thyroid normal, no posterior cervical or supraclavicular fat pad Lungs: Clear to auscultation b/l, no accessory muscle use Cardiovascular: RRR, no lower extremity edema Abdomen: soft, nontender, obese, without mass or hepatosplenomegaly, red or violaceous striae Musculoskeletal: no tenderness or deformities, no muscle weakness/wasting Neuro: AAOx3, no tremors, no focal deficits Psych: Cooperative DATA REVIEW: 24 hour bg log: Ref. Range 12/10/2019 12:14 12/10/2019 17:56 12/10/2019 18:35 12/10/2019 20:40 12/11 08:21 12/11/2019 12:22 POCT Blood Glucose No Range Found 180 246 260 212 299 260 Lab Results Component Value Date NA 127 (L) 12/11/2019 NA 127 (L) 12/10/2019 K 5.2 (H) 12/11/2019 K 5.1 (H) 12/10/2019 CL 95 (L) 12/11/2019 CL 95 (L) 12/10/2019 TCO2 28 12/11/2019 TCO2 28 12/10/2019 BUN 34 (H) 12/11/2019 BUN 32 (H) 12/10/2019 CREAT 2.26 (H) 12/11/2019 CREAT 2.26 (H) 12/10/2019 GLU 189 (H) 12/11/2019 GLU 243 (H) 12/10/2019 HGB A1C (%) Date Value 11/07/2019 7.8 (H) MEDICATIONS: Current Facility-Administered Medications Medication Dose Route Frequency Last Rate Last Dose insulin NPH (HUMULIN N) injection 7 Units 7 Units Subcutaneous QPM insulin NPH (HUMULIN N) injection 9 Units 9 Units Subcutaneous QAM 9 Units at 12/11/19 0838 insulin regular human (HUMULIN R) injection 5 Units 5 Units Subcutaneous BID MEALS 5 Units at12/11/19 0844 Sliding Scale Insulin-Regular + Fsbg Testing Subcutaneous AC+HS 3 Units at 12/11/19 0838 amLODIPine (NORVASC) tablet 5 mg 5 mg Oral DAILY 5 mg at 12/11/19 0834 carvediloL (COREG) tablet 25 mg 25 mg Oral BID MEALS 25 mg at 12/11/19 0834 diphenhydrAMINE (BENADRYL) tablet 25 mg 25 mg Oral QID 25 mg at 12/11/19 0834 erythromycin ethylsuccinate (E.E.S.) 200 mg/5 mL suspension 180 mg 180 mg Oral Q8H ABX 180 mgat 12/11/19 0834 trimethobenzamide (TIGAN) injection 100 mg 100 mg Intramuscular Q6HPRN 100 mg at 12/10/19 0909 lidocaine 1% (PF) (XYLOCAINE) injection 5 mL 5 mL Subcutaneous PRN NaCl 0.9% (NS) injection 10 mL 10 mL Slow IV Push PRN enoxaparin (LOVENOX) injection 30 mg 30 mg Subcutaneous Q24H 30 mg at 1758 ergocalciferol (vitamin d2) (CALCIFEROL) capsule 50,000 Units 50,000 Units Oral QWEEKLY metoclopramide HCl (REGLAN) 5 mg/5 mL solution 5 mg 5 mg Oral QID 5 mg at 12/11/19 0629 pantoprazole (PROTONIX) EC tablet 40 mg 40 mg Oral BID 40 mg at 12/11/19 0629 hydralAZINE (APRESOLINE) injection 10 mg 10 mg Intravenous Q6HPRN 10 mg at 12/04/19 035 acetaminophen (TYLENOL) tablet 650 mg 650 mg Oral Q6HPRN 650 mg at 0617 ondansetron (ZOFRAN (PF)) injection 4 mg 4 mg Slow IV Push Q6HPRN 4 mg at 12/04/19 0825 Polyethylene Glycol 3350 (MIRALAX) powder 34 g 34 g Oral DAILY 34 g at 0835 proMETHazine (PHENERGAN) 25 mg in NaCl 0.9% (NS) 50 mL IV piggyback 25 mg IV Piggyback [id number] mg at 12/04/19 1329 scopolamine transdermal (TRANSDERM-SCOP) patch 1.5 mg 1.5 mg Topical Q72H 1.5 mg at 12/08/19 1306 sucralfate (CARAFATE) tablet 1 g 1 g Oral AC+HS 1 g at 12/11/19 0629 ASSESSMENT AND PLAN ? ASSESSMENT and PLAN Problem List: Question of adrenal insufficiency 1 Uncontrolled Type 2 Diabetes on insulin 2. Stress hyperglycemia 3 Nausea and vomiting 4. Gastroparesis 5. CKD stage 4 with proteinuria 6. Gastritis 7. Decreased PO intake 8, Hypertension and overweight Comments: 1. Regarding AI : Patient denies symptoms of AI, except for nausea and vomiting which are likely secondary to gastroparesis. She presented hypertensive with hyponatremia and hyperkalemia 2/2 multiple vomiting episodes. Patient has a an albumin level of 3.0 and nephrotic range proteinuria leading to CBG loss and therefore lower level of total cortisol. Her baseline cortisol is > 3 and stimulated to17 after ACTH infusion showing a near normal response despite low albumin levels. Giving the clinical and biochemical picture, it is unlikely she has adrenal insufficieny. 2. Regarding DM : Patient's 24 hour TDD requirements were 30 units with BG readings remaining above the target range of 140 - 180 mg/dl. Will therefore increase TDD by 20% split between basal/bolus.new tdd- 36 units On d/c patient is to resume NOVOLOG 70/30 INSULIN. PLEASE SEE DC INSTRUCTIONS. Recommendations: NPH 12 units qAM and 10 units qPM - Give half dose if patient NPO or if blood glucose 80 - 120 mg/dL. - Hold dose if blood glucose <80 mg/dL .Regular 7 Units BID meals - Please give half dose if patient eats less than half meal OR if blood glucose 80 - 120 mg/dL. - HOLD DOSE if NPO or BG < 80 mg/dL. Please give at end of meal if not sure if patient will eat. Regular insulin Sliding scale 1:40 AC and HS BG 160 to 200, give 1 unit. BG 201 to 240, give 2 units. BG 241 to 280, give 3 units. BG 281 to 300, give 4 units. BG > 300, give 5 units, NHO, recheck in 6 hours and cover again with sliding scale. Fsbg Testing based on ordered frequency. On d/c patient is to resume NOVOLOG 70/30 INSULIN. PLEASE SEE DC INSTRUCTIONS. Patient seen and discussed with DR Farzaneh Diaz MD PGY 5 ENDOCRINE FELLOW [phone] -------- Faculty Attestation: I personally examined the patient on 12/[address] Diaz' fellow note as written and revised. I actively participated in the decision-making process. Please see the resident's note for additional details. Patient was personally counseled on insulin regimen, glucose goals, when to hold insulin. See patient instruction details in attached progress note. F/u was coordinated with patient and team. Total encounter time: 35 minutes; more than half spent in face to face counseling and coordination of care. Kristina Moy MD Kingston Kidd MD - 12/10/2019 6:55 AM CST [facility] Internal Medicine Progress Note Date of Service: 12/10/2019 06:55 Chief Complaint: nausea & vomiting 24-HOUR EVENTS: - NAEO SUBJECTIVE: Patient is tolerating food, had breakfast with no vomiting, had a little nausea. Patient dizziness is much better. Denies CP, vomiting, SOB PHYSICAL EXAM: Vitals: 12/09/19201012/09/19 2352 12/10/19 0412 12/10/19 0500 BP: 131/71 124/64 (!) 145/73 Pulse: 95 95 94 93 Resp: 18 18 18 Temp: 36.3 C (97.3 F) 36.7 C (98 F) 36.9 C (98.5 F) TempSrc: Oral Oral Oral SpO2: 97% 99% 97% 98% Weight: Height: Intake/Output Summary (Last 24 hours) at 12/10/2019 0655 Last data filed at 12/10/2019 0600 Gross per 24 hour Intake 1720 ml Output 3500 ml Net -1780 ml General: AO, resting comfortably in bed Lungs: CTAB Cardio: RRR, nl S1/S2 Abdomen: soft; no TTP on palpation, and epigastrium; non-distended; normoactive bowel sounds Extr: no edema Orthostatics are positive LABS/IMAGING - reviewed, pertinent results as below: 12/10/2019 04:59 WBC x10^3 7.23 RBC x10^6 2.93 (L) HGB 8.3 (L) HCT 25.7 (L) MCV 87.7 MCH 28.3 MCHC 32.3 RDW-SD 40.8 RDW-CV 12.6 PLT x10^3 135 (L) MPV 12.3 NRBC /100 WBC 0.0 NRBC x10^3 <0.01 12/09/2019 13:11 12/10/2019 04:59 NA 128 (L) 127 (L) K 5.1 (H) 5.1 (H) CL 96 (L) 95 (L) CO2 TOTAL 25 28 AGAP 7 4 BUN 27 (H) 32 (H) GLUCOSE 284 (H) 243 (H) CREATININE 2.37 (H) 2.26 (H) eGFR CALCULATION (non ) 22.9 24.2 eGFR CALCULATION () 27.8 29.3 12/09/2019 13:01 12/09/2019 13:11 OSMOLALITY 297 OSMO U 332 12/09/2019 19:56 12/09/2019 20:36 12/09/2019 21:12 VIC 0 4.6 VIC 30 13.3 VIC 60 17.1 ASSESSMENT/PLAN Ese Gonzales is a 39 year old female admitted to the hospital with: Intractable N/V DM2 c/b diabetic gastroparesis & probable diabetic nephropathy ? Adrenal insufficiency Hyponatremia Hyperkalemia Patient cosyntropin test was positive indicating likely adrenal insufficiency, will consult endocrinology given multiple endocrin problems - c/w Reglan 5 PO QID - c/w erythromycin 6mg/kg q8h - c/w PO Benadryl to 50 mg QID - c/w prn Tigan, Phenergan, Zofran - c/w scopolamine patch - consult Endo - aggressive glucose control - GI sign off Small pericardial effusion without clinical tamponade (unknown etiology) Anasarca Nephrotic-range proteinuria CKD 4 Suspected diabetic nephropathy Vit D def Pleural effusion, small Patient has small pleural effusion w/o tamponade which we will monitor for now, will hold lasix since patient is orthostatic negative and no signs of fluid overload rather has intravascular fluid depletion - Hold Lasix - cardiology sign off, - nephrology sign off - strict I/Os and daily weight - DVT ppx w/ LMWH - Vit D qWeekly HTN > Continue home meds - c/w amlodipine 10 mg QD and carvedilol 37.5 mg BID - prn hydralazine - will follow up with nephrology clinic to consider ACEi vs amiloride PAIN: Controlled Tylenol Prophylaxis: DVT- heparin Stress Ulcer: pantoprazole Code Status: addressed: Full code Kingston Mariee MD, PhD PGY-3 Internal Medicine Doctor# [id number] Page: [phone] END OF DAILY PROGRESS NOTE HOSPITAL COURSE [facility] [place]uean-speaking only . Previous admission was identical with intractable n/v responsive only to steroids. Numerous agents (Zofran, Phenergan, Compazine, Tigan, erythromycin, scopolamine patch, Benadryl) showed zero efficacy. Patient continues to be nauseous andexhibits mild abdominal improvement. EGD with features of gastroparesis and LA grade C esophagitis, starting erythromycin. Nausea improving at this time. Concern for signf pericardial effusion (unknown etiology) due to CXR findings, but small on TTE. 11: 18 AM WOOL GRADER Associated attestation - Deya Perez MD - 12/10/2019 11:18 AM CSTI personally examined the patient on 12/10/[address] Mariee's resident note as written. Patient has had months of nausea and vomiting with difficulty tolerating po resulting in a 20 lb weight loss. She was empirically given decadron at previously admissions when other anti-emetics failed and improved. She likely has diabetic gastroparesis given retained food seen on EGD , but unable to formally check a gastric emptying study due to inability to be off prokinetics due to n/v. Cosyntropin stimulation test performed yesterday to evaluate for adrenal insufficiency due to persistent nausea along with hyponatremia and hyperkalemia. Her results are borderline positive, recognizing thatwith her nephrotic syndrome she likely will have a lower cortisol level. Will consult endocrinologytoday to assist with diagnosis/ interpretation of test and subsequent management if adrenal insufficiency. I actively participated in the decision-making process. Please see the resident' s note for additional details. Kingston Mariee MD - 12/09/2019 5:51 AM CST [facility] Internal Medicine Progress Note Date of Service: 12/09/2019 08:33 Chief Complaint: nausea & vomiting 24-HOUR EVENTS: - NAEO SUBJECTIVE: - patient had no nausea ON, patient reported that ate fish yesterday w/o vomiting. This AM had an episode of Nausea w/o vomiting and dizziness. PHYSICAL EXAM: Vitals: 12/08/19 1934 12/08/19 2258 12/09/19 0342 12/09/19 0750 BP: 128/71 135/69 133/69 (!) 145/77 Pulse: 85 83 87 93 Resp: 18 18 18 18 Temp: 36.9 C (98.4 F) 36.6 C (97.9 F) 36.6 C (97.8 F) 37.1 C ( 98.7 F) TempSrc: Oral Oral Oral Oral SpO2: 100% 100% 97% 97% Weight: 64.5 kg (142 lb 3.2 oz) Height: Intake/Output Summary (Last 24 hours) at 12/09/2019 0833 Last data filed at 12/09/2019 0200 Gross per 24 hour Intake 320 ml Output 600 ml Net -280 ml General: AO, resting comfortably in bed Lungs: CTAB Cardio: RRR, nl S1/S2 Abdomen: soft; tender to palpation of RUQ, LUQ, and epigastrium; non-distended; normoactive bowel sounds Extr: no edema Orthostatics are positive LABS/IMAGING - reviewed, pertinent results as below: Results for ESE GONZALES ( ) as of 12/09/2019 08:25 12/08/2019 04:17 12/09/2019 04:51 WBC x10^3 6.84 7.73 RBC x10^6 3.16 (L) 2.95 (L) HGB 8.9 (L) 8.2 (L) HCT 27.3 (L) 25.6 (L) MCV 86.4 86.8 MCH 28.2 27.8 MCHC 32.6 32.0 RDW-SD 39.9 40.2 RDW-CV 12.5 12.6 PLT x10^3 144 (L) 139 (L) MPV 11.5 11.6 Results for ESE GONZALES ( ) as of 12/09/2019 08:25 12/08/2019 04:17 12/09/2019 04:51 NA 128 (L) 127 (L) K 4.0 4.8 CL 97 (L) 97 (L) CO2 TOTAL 25 25 AGAP 6 5 BUN 24 (H) 29 (H) GLUCOSE 109 171 (H) CREATININE 2.29 (H) 2.21 (H) eGFR CALCULATION (non ) 23.9 24.8 eGFR CALCULATION () 28.9 30.1 VIC AM 4.5 - 23.0 ug/dL 3.6Low ASSESSMENT/PLAN Ese Gonzales is a 39 year old female admitted to the hospital with: Intractable N/V DM2 c/b diabetic gastroparesis & probable diabetic nephropathy ? Adrenal insufficiency Hyponatremia Hyperkalemia > Patient with complicated intractable nausea despite multiple therapies. EGD strongly suggests gastroparesis. Nausea has improved and patient is tolerating PO, however continue with sporadic episodes of nausea. Low cortisol, hyponatremia and hypokalemia can be caused by adrenal insufficiency, a component of gastroparesis can be included as well - c/w Reglan 5 PO QID - c/w erythromycin 6mg/kg q8h - c/w PO Benadryl to 50 mg QID - c/w prn Tigan, Phenergan, Zofran - c/w scopolamine patch - GI consulted, recs emptying study as op - aggressive glucose control - f/u cosyntropin stimulation test - f/u urine / serum OSM Small pericardial effusion without clinical tamponade (unknown etiology) Anasarca Nephrotic-range proteinuria CKD 4 Suspected diabetic nephropathy Vit D def Pleural effusion, small Patient has small pleural effusion w/o tamponade which we will monitor for now, will hold lasix since patient is orthostatic negative and no signs of fluid overload rather has intravascular fluid depletion - Hold Lasix - 500 ml NA bolus once - cardiology sign off, - nephrology sign off - strict I/Os and daily weight - DVT ppx w/ LMWH - Vit D qWeekly #HTN > Continue home meds - c/w amlodipine 10 mg QD and carvedilol 37.5 mg BID - prn hydralazine - will follow up with nephrology clinic to consider ACEi vs amiloride PAIN: Controlled Tylenol Prophylaxis: DVT- heparin Stress Ulcer: pantoprazole Code Status: addressed: Full code Kingston Mariee MD, PhD PGY-3 Internal Medicine Doctor# [id number] Page: [phone] END OF DAILY PROGRESS NOTE HOSPITAL COURSE Patient is a readmit to [facility]. Niuean-speaking only . Previous admission was identical with intractable n/v responsive only to steroids. Numerous agents (Zofran, Phenergan, Compazine, Tigan, erythromycin, scopolamine patch, Benadryl) showed zero efficacy. Patient continues to be nauseous andexhibits mild abdominal improvement. EGD with features of gastroparesis and LA grade C esophagitis, starting erythromycin. Nausea improving at this time. Concern for signf pericardial effusion (unknown etiology) due to CXR findings, but small on TTE. 4: 32 PM WOOL GRADER Associated attestation - Deya Perez MD - 12/09/2019 4:32 PM CSTI personally examined the patient on 12/09/[address] Mariee's resident note as written. Patient had felt better but then had recurrence of nausea this morning. Of note, previously improved with course of decadron but no evaluation of adrenal insufficiency was made. Appears volume deplete based off orthostatics and symptoms of lightheadedness and AM cortisol low. Will give IVF for orthostasis and then perform cosyntropin stimulation test. I actively participated in the decision-making process. Please see the resident' s note for additional details. Greg Jerez MD - 12/08/2019 6:56 AM CST [facility] Internal Medicine Progress Note Date of Service: 12/08/2019 06:57 Chief Complaint: nausea & vomiting 24-HOUR EVENTS: - TTE w/ small pericardial effusion - AVSS SUBJECTIVE: Nausea better yet today. Mild epigastric pain. Tolerant of dinner and breakfast. No CP, SOB. PHYSICAL EXAM: Vitals: 12/07/19 1558 12/07/19 1956 12/07/19 2309 12/08/19 0337 BP: 108/64 103/57 116/65 124/66 Pulse: 78 78 78 78 Resp: 18 18 18 18 Temp: 36.7 C (98 F) 36.7 C (98 F) 36.8 C (98.3 F) 36.7 C (98 F) TempSrc: Oral Oral Oral Oral SpO2: 97% 99% 100% 100% Weight: 65 kg (143 lb 4.8 oz) Height: Intake/Output Summary (Last 24 hours) at 12/08/2019 0657 Last data filed at 12/07/2019 2315 Gross per 24 hour Intake 608 ml Output 550 ml Net 58 ml General: AO, resting comfortably in bed Lungs: CTAB Cardio: RRR, nl S1/S2 Abdomen: soft; tender to palpation of RUQ, LUQ, and epigastrium; non-distended; normoactive bowel sounds Extr: trace pedal edema LABS/IMAGING - reviewed, pertinent results as below: BMP NA (mmol/L) Date Value 12/08/2019 128 (L) K (mmol/L) Date Value 12/08/2019 4.0 CALCIUM (mg/dL) Date Value 12/08/2019 7.8 (L) CL (mmol/L) Date Value 12/08/2019 97 (L) BUN (mg/dL) Date Value 12/08/2019 24 (H) CREATININE (mg/dL) Date Value 12/08/2019 2.29 (H) GLUCOSE (mg/dL) Date Value 12/08/2019 109 CO2 TOTAL (mmol/L) Date Value 12/08/2019 25 ASSESSMENT/PLAN Ese Gonzales is a 39 year old female admitted to the hospital with: #Intractable N/V #DM2 c/b diabetic gastroparesis & probable diabetic nephropathy > Patient with complicated intractable nausea despite multiple therapies. EGD strongly suggests gastroparesis. Nausea is slowly improving with aggressive regimen and re-initiation of prokinetic agents. Pt reports tolerating some PO now, though not much, and ongoing modest improvement in nausea. Switch IV meds to PO. - c/w Reglan 5 PO QID - c/w erythromycin 6mg/kg q8h - c/w PO Benadryl to 50 mg QID - c/w prn Tigan, Phenergan, Zofran - c/w scopolamine patch - consult GI, appreciate recs - aggressive glucose control #Small pericardial effusion without clinical tamponade (unknown etiology) #Anasarca #Nephrotic-range proteinuria #CKD 4 #Suspected diabetic nephropathy #Hypokalemia #Vit D def #?Pleural effusion >Pt w/o signf pericardial effusion. Curious about pleural effusion, however. Stop IVF and follow-up with upright/supine CXR. - resume Lasix - cardiology c/s, appreciate recs - nephrology c/s, appreciate recs - strict I/Os and daily weight - DVT ppx w/ LMWH - Vit D qWeekly - check Quantiferon TB Gold - check CXR 2v to assess for pleural effusion #HTN > Continue home meds - c/w amlodipine 10 mg QD and carvedilol 37.5 mg BID - prn hydralazine PAIN: Controlled Tylenol Prophylaxis: DVT- heparin Stress Ulcer: pantoprazole Code Status: addressed: Full code Lefty Jerez MD Internal Medicine PGY-3 pager: [phone] END OF DAILY PROGRESS NOTE HOSPITAL COURSE Patient is a readmit to [facility]. Niuean-speaking. Previous admission was identical with intractable n/v responsive only to steroids. Numerous agents (Zofran, Phenergan, Compazine, Tigan, erythromycin, scopolamine patch, Benadryl ) showed zero efficacy. Patient continues to be nauseous and exhibits mild abdominal improvement. EGD with features of gastroparesis and LA grade C esophagitis, starting erythromycin. Nausea improving at this time. Concern for signf pericardial effusion (unknown etiology) due to CXR findings, but small on TTE. GRADER Associated attestation - Deya Perez MD - 12/08/2019 4:33 PM CSTI personally examined the patient on 12/08/[address] Jerez's resident note as written. Able to tolerate po now - will change medications to oral and monitor. Discuss with nephrology ideal medications to initiate (e.g., tiffanie vs amiloride) in light of severe CKD4 /nephrotic syndrome. I actively participated in the decision-making process. Please see the resident's note for additional details.Klaudia Newman MD - 12/07/2019 6:03 PM CSTBrief GI note: - Patient seen and examined. reported continued nausea that has slightly improved, also reported sheis able to tolerate some liquid diet. Reported epigastric pain which is sharp, non-radiating. - Physical exam unremarkable. - Pending Gastric emptying study. GI will continue to follow. Discussed with Dr. Perez. Klaudia Newman MD PGY4 - Gastroenterology and hepatology Pager # : [phone] g Kingsley MD - 12/07/2019 5:29 PM CST Cardiology Progress Note 12/07/2019 17:29 5:29 PM [facility]ing [facility] Complaint: Nausea vomiting Reason for admission: gastroparesis Reason for consult: 39 yoF with nephrotic syndrome, admitted for intractable nausea/vomiting, unrelenting and presumed 2/2 gastroparesis. Has large peff despite aggressive diuresis and approaching euvolemia clinically otherwise. Please evaluate with recommendations in management of large peff. History of Present Illness: Ese Gonzales is a 39 year old female with PMHx of nephrotic syndrome, CKD 4, DM, gastroparesis, who is admitted for intractable n/v from gastroparesis, we are consulted for pericardialeffusion 24-hr events No acute events Subjective: Mook chest pain, pressure, palpitation, dizziness, or sob Physical Exam: Vitals: 12/07/19 0456 12/07/19 0801 12/07/19 1235 12/07/19 1558 BP: 134/73 134/71 106/59 108/64 Pulse: 80 82 73 78 Resp: 18 18 18 18 Temp: 36.8 C (98.2 F) 36.7 C (98 F) 36.2 C (97.2 F) 36.7 C (98 F ) TempSrc: Oral Oral Axillary Oral SpO2: 100% 100% 98% 97% Weight: 62.5 kg (137 lb 12.6 oz) Height: 12/06 1500 - 12/07 1459 In: 962 [Oral:962] Out: 1100 [Urine:1100] General: ao x 3 Lungs: crackles none Cardio: RRR no murmur appreciated Extremities: no edema Labs/Imaging/Pathology - reviewed EKG : Sinus tachycardia, q waves septal leads Echocardiography : 11/09/19: EF 55-60, nwm, RVSP 40-45, small to moderate pericardial effusion, no echocardiographic signs of tamponade. 12/06/19 bedside echo: small to moderate pericardial effusion, slightly better in size anteriorly measured 0.7 cm, same size posteriorly measured 1.1 cm 12/07/18 formal TTE: pericardial effusion is unchanged, small to moderate in size , no echocardiographic findings of tamponade. Assessment/Plan: Ese Gonzales is a 39 year old female admitted with: 1. Intractable n/v 2/2 gastroparesis 2/2 poorly controlled DM 2. Uremia 2/2 Progressive CKD 4 2/2 to DM with nephrotic range proteinuria ( renal biopsy deferred previously due to bland UA) 3. Moderate pericardial effusion, possible 2/2 uremia, no signs of cardiac tamponade 4. Near euvolemic 5. Gastritis Recommendations: Agree with nephro consult to eval for dialysis Follow up nephrology recommendations If hypotensive and/or tachycardic, please contact avionics repair technician ethanol operations manager to eval for pericardiocentesis, and transfer to MICU given renal issues Currently the pericardial effusion is stable in size, no indications for pericardiocentesis. We will sign off at this time, please contact us for any questions Thank you for your consult. Discussed with Dr. Ildefonso Kingsley DO Mobile Application Development Lead PGY4 [id number] GRADER Associated attestation - Michael Fregoso MD - 12/08/2019 8:54 PM CSTI personally examined the patient on 12/07/[address] Kingsley's resident note as written . I actively participated in the decision-making process. Please see the resident's note for additional details. Wendy Jo RN - 12/07/2019 3:22 PM CSTCare Management Continued Stay Assessment LOS Day: 5 Estimated /Planned Discharge Date: 12/09/2019 [place] female 39 year old Date CM/SW last Face to Face completed with patient/family: 12/07/2019 Funding source: No coverage found. PCP:Liv Khan Patient/Family/MPOA/Caregiver Engaged with Transitional Care Plan: yes Patient/Family/MPOA/Caregiver concurs with proposed discharge plan: yes Name, Relationship to Patient and contact number of individual acting on behalf of the patient: patient Chief Complaint/Admitting Dx:intractable nausea and vomiting Hospital Problems: Intractable nausea and vomiting Summary of hospital course: per chart, "Patient is a readmit to [facility]. Previous admission wasidentical with intractable n/v responsive only to steroids. Numerous agents (Zofran, Phenergan, Compazine, Tigan, erythromycin, scopolamine patch, Benadryl) showed zero efficacy. Patient continues to be nauseous and exhibits mild abdominal improvement. EGD with features of gastroparesis and LA grade Cesophagitis, starting erythromycin. Nausea improving at this time. Concern for signf pericardial effusion (unknown etiology) due to CXR findings, pending formal TTE." CM/SW Interventions/Resources provided: SFA completed; patient will discharge home with family support upon medical clearance. CM/SW Interventions/Resources still needed: pending final work-up Anticipated Discharge Destination: Home If DC to home, who will support patient: patient's spouse, Amarjit ([phone] ) Anticipated DME needs: None Referrals sent: not applicable If no, why/when will referral be sent:: n/a Has patient been accepted: not applicable Revised plan if not accepted: home with family support What is the clinical care happening right now that must be done in the hospital and only the hospital: pending gastric emptying study, monitor and encourage PO intake, anti-emetics, GI following, nephrology following, cardiology following Please addend note following Length of Stay rounds and complete section below Were any recommendations made during LOS rounds on this patient:not applicable If yes, what new recommendations were made at LOS: n/a Wendy Jo RN, BSN Mobile Home Park Manager [email or web address] (O) [phone] (C) [phone] Greg Prabhakar MD - 12/07/2019 6:48 AM CST [facility] Internal Medicine Progress Note Date of Service: 12/07/2019 06:48 Chief Complaint: nausea & vomiting 24-HOUR EVENTS: - glycemic control improving since steroids have completed - bedside echo w/ moderate pericardial effusion - no tamponade; formal echo pending - AVSS SUBJECTIVE: Still having nausea, but improved. Mild epigastric pain. No CP, SOB. PHYSICAL EXAM: Vitals: 12/06/19 1500 12/06/19 1900 12/06/19 2317 12/07/19 0456 BP: 115/65 126/76 122/69 134/73 Pulse: 82 82 79 80 Resp: 18 18 18 18 Temp: 36.6 C (97.8 F) 36.2 C (97.2 F) 36.3 C (97.3 F) 36.8 C ( 98.2 F) TempSrc: Oral Oral Oral Oral SpO2: 100% 99% 98% 100% Weight: 62.5 kg (137 lb 12.6 oz) Height: Intake/Output Summary (Last 24 hours) at 12/07/2019 0648 Last data filed at 12/07/2019 0500 Gross per 24 hour Intake 958 ml Output 1100 ml Net -142 ml General: AO, resting comfortably in bed Lungs: CTAB Cardio: RRR, nl S1/S2 Abdomen: soft; tender to palpation of RUQ, LUQ, and epigastrium; non-distended; normoactive bowel sounds Extr: trace pedal edema LABS/IMAGING - reviewed, pertinent results as below: Reviewed and interpreted pertinent. ASSESSMENT/PLAN Ese Gonzales is a 39 year old female admitted to the hospital with: #Intractable N/V #DM2 c/b diabetic gastroparesis & probable diabetic nephropathy > Patient with complicated intractable nausea despite multiple therapies. EGD strongly suggests gastroparesis. Nausea is slowly improving with aggressive regimen and re-initiation of prokinetic agents. Pt reports tolerating some PO now, though not much, and ongoing modest improvement in nausea. - c/w reglan 5 PO QID - c/w erythromycin 6mg/kg q8h - c/w IV Benadryl to 50 mg QID - c/w Tigan, Phenergan, Zofran - c/w scopolamine patch - consult GI, appreciate recs - aggressive glucose control #Moderate pericardial effusion without clinical tamponade (unknown etiology) #Anasarca #Nephrotic-range proteinuria #CKD 4 #Suspected diabetic nephropathy #Hypokalemia #Vit D def >Patient not grossly overloaded by clinical exam or pulmonary exam today but noted muffled heart sounds, ECG with low voltage c/w peff & CXR shows large peff. She remains hemodynamically stable (vitals good with great pulse pressure ) and without clinical features of pericarditis. No pulsus paradoxus. Will consult cardiology for urgent echo as patienet may require a paracentesis. Given concern for imminent tamponade physiology, will gently hydrate and avoid diuretic use. - gentle hydration given minimal PO intake and concern dehydration may precipitate tamponade - cardiology c/s - nephrology c/s - strict I/Os and daily weight - DVT ppx w/ LMWH - consider repeat nephrology consult in near-term, incl assessment for possible renal biopsy - Vit D qWeekly - check Quantiferon TB Gold #HTN > Continue home meds - c/w amlodipine 10 mg QD and carvedilol 37.5 mg BID - prn hydralazine PAIN: Controlled Tylenol Prophylaxis: DVT- heparin Stress Ulcer: pantoprazole Code Status: addressed: Full code Lefty Jerez MD Internal Medicine PGY-3 pager: [phone] END OF DAILY PROGRESS NOTE HOSPITAL COURSE Patient is a readmit to [facility]. Previous admission was identical with intractable n/v responsive only to steroids. Numerous agents (Zofran, Phenergan , Compazine, Tigan, erythromycin, scopolamine patch, Benadryl) showed zero efficacy. Patient continues to be nauseous and exhibits mild abdominal improvement. EGD with features of gastroparesis and LA grade C esophagitis, starting erythromycin. Nausea improving at this time. Concern for signf pericardial effusion (unknown etiology) due to CXR findings, pending formal TTE. GRADER Associated attestation - Deya Perez MD - 12/07/2019 2:53 PM CSTI personally examined the patient on 12/07/[address] Jerez's resident note as written. Patient continues to be severely nauseous, but attempting to eat today. Unclear etiology of pericardial effusion - questionable uremic in light not having significantly elevated bun and no friction rub. May also consider TB as etiology. Nephrology has been consulted given nephrotic syndrome with CKD4 to given input and cardiology on board as well. I actively participated in the decision-making process. Please see the resident's note for additional details.Andree Sen MD - 12/06/2019 6: 49 AM CST [facility] Internal Medicine Progress Note Date of Service: 12/06/2019 15:18 Chief Complaint: nausea & vomiting 24-HOUR EVENTS: - decadron d/c'd - restarted reglan 5 IV QID this AM - TDD insulin yesterday 42U; inc'd NPH/regular (note received decadron yesterday ) - muffled heart sounds -> CXR w water bottle heart, ECG c/w large peff, bedside vitals with inspiratory variation <10 systolic (~132/70 expiration, 126/70 inspiration), cardiology contacted for urgent echo SUBJECTIVE: Pt reports improvement in nausea this morning and yesterday PM. It is still present and she reports not eating much but has been able to tolerate fluids without emesis. Still having some epigastric/LUQabdominal pain. Has not tried to eat breakfast yet this AM. PHYSICAL EXAM: Vitals: 12/06/19 0008 12/06/19 0400 12/06/19 0810 12/06/19 1133 BP: 132/72 (!) 153/79 (!) 185/82 123/68 Pulse: 78 85 88 80 Resp: 16 18 18 18 Temp: 36.7 C (98 F) 36.7 C (98 F) 36.7 C (98.1 F) 36.7 C (98.1 F ) TempSrc: Oral Oral Oral Oral SpO2: 99% 98% 100% 100% Weight: 62 kg (136 lb 11 oz) Height: Intake/Output Summary (Last 24 hours) at 12/06/2019 1518 Last data filed at 12/06/2019 1132 Gross per 24 hour Intake 1172 ml Output 600 ml Net 572 ml General: AO, resting comfortably in bed, appears mildly uncomfortable during interview after waking Lungs: CTAB Cardio: RRR, +S1/S2, trace to 1+ edema of midfoot/ankle Abdomen: soft; tender to palpation of RUQ, LUQ, and epigastrium; non-distended; normoactive bowel sounds LABS/IMAGING - reviewed, pertinent results as below: Reviewed and interpreted pertinent. ASSESSMENT/PLAN Ese Gonzales is a 39 year old female admitted to the hospital with: #Intractable N/V #DM2 c/b diabetic gastroparesis & probable diabetic nephropathy > Patient with complicated intractable nausea despite multiple therapies. EGD strongly suggests gastroparesis. Nausea is slowly improving with aggressive regimen and re-initiation of prokinetic agents. Pt reports tolerating some PO now, though not much, and minor improvement in nausea. - decadron discontinued yesterday - start reglan 5 PO QID - c/w erythromycin 6mg/kg q8h - c/w IV Benadryl to 50 mg QID - c/w Tigan, Phenergan, Zofran - c/w scopolamine patch - consult GI, appreciate recs - aggressive glucose control #Large pericardial effusion without clinical tamponade #Anasarca #Nephrotic-range proteinuria #CKD #Suspected diabetic nephropathy #Hypokalemia #Vit D def >Patient not grossly overloaded by clinical exam or pulmonary exam today but noted muffled heart sounds, ECG with low voltage c/w peff & CXR shows large peff. She remains hemodynamically stable (vitals good with great pulse pressure ) and without clinical features of pericarditis. No pulsus paradoxus. Will consult cardiology for urgent echo as patienet will likely require a paracentesis. Given concern for imminent tamponade physiology, will gently hydrate and avoid diuretic use. - d/c lasix, start gentle hydration given minimal PO intake and concern dehydration may precipitate tamponade - consult cardiology for urgent echo, pending results may benefit from pericardiocentesis - strict I/Os and daily weight - C3 & C4 (essentially -), cryoglobulin, SPEP/UPEP, anti-ds DNA (-), anti-Sm , syphilis antibodies (-) - DVT ppx w/ LMWH - consider repeat nephrology consult in near-term, incl assessment for possible renal biopsy - Vit D qWeekly #HTN > Resume home meds. Not tolerating them consistently due to N/V. Expect control to improve withre-introduction of PO meds. - c/w amlodipine 10 mg QD and carvedilol 37.5 mg BID - prn hydralazine PAIN: Controlled Tylenol Prophylaxis: DVT- heparin Stress Ulcer: pantoprazole Code Status: addressed: Full code Andree Sen MD Internal Medicine PGY-3 END OF DAILY PROGRESS NOTE HOSPITAL COURSE Patient is a readmit to [facility]. Previous admission was identical with intractable n/v responsive only to steroids. Numerous agents (Zofran, Phenergan , Compazine, Tigan, erythromycin, scopolamine patch, Benadryl) showed zero efficacy. Patient continues to be nauseous and exhibits mild abdominal improvement. EGD with features of gastroparesis and LA grade C esophagitis, starting erythromycin. Nausea improving at this time. GRADER Associated attestation - Deya Perez MD - 12/06/2019 5:22 PM CSTI personally examined the patient on 12/06/[address] Sen's resident note as written. I actively participated in the decision-making process. Please see the resident's note for additional details.Greg Jerez MD - 12/05/2019 6:40 AM CST [facility] Internal Medicine Progress Note Date of Service: 12/05/2019 06:41 Chief Complaint: nausea & vomiting 24-HOUR EVENTS: - NAOE - increased Benadryl and added fosaprepitant x1 and started kenny'd erythromycin - EGD w/ medium food burden, esophagitis, no ulcers SUBJECTIVE: Nausea improved yesterday evening and o/n, worse now this AM. Mild pain. Has not tried breakfast yet. PHYSICAL EXAM: Vitals: 12/04/19 1602 12/04/19 1900 12/05/19 0048 12/05/19 0526 BP: (!) 179/86 (!) 175/90 (!) 176/84 (!) 183/92 Pulse: 114 105 106 109 Resp: 18 18 18 18 Temp: 36.7 C (98.1 F) 37.2 C (99 F) 36.7 C (98.1 F) 36.5 C (97.7 F) TempSrc: Oral Oral Oral Oral SpO2: 97% 100% 99% 100% Weight: Height: Intake/Output Summary (Last 24 hours) at 12/05/2019 0641 Last data filed at 12/05/2019 0434 Gross per 24 hour Intake 1218 ml Output 500 ml Net 718 ml General: alert and oriented; mildly uncomfortable Lungs: clear to auscultation bilaterally, no incr WOB Cardio: RRR, S1, S2 normal; no murmurs, rubs or gallops Abdomen: soft; tender to palpation of RUQ, LUQ, and epigastrium; non-distended; normoactive bowel sounds Extremities: no clubbing, cyanosis; +1 edema up to mid foot/ankle (improved) LABS/IMAGING - reviewed, pertinent results as below: BMP NA (mmol/L) Date Value 12/05/2019 137 K (mmol/L) Date Value 12/05/2019 3.6 CALCIUM (mg/dL) Date Value 12/05/2019 9.1 CL (mmol/L) Date Value 12/05/2019 101 BUN (mg/dL) Date Value 12/05/2019 28 (H) CREATININE (mg/dL) Date Value 12/05/2019 2.57 (H) GLUCOSE (mg/dL) Date Value 12/05/2019 231 (H) CO2 TOTAL (mmol/L) Date Value 12/05/2019 21 (L) ASSESSMENT/PLAN Ese Gonzales is a 39 year old female admitted to the hospital with: #Intractable N/V #DM2 c/b diabetic gastroparesis & probable diabetic nephropathy > Patient is a readmit to [facility]. Previous admission was identical with intractable n/v responsive only to steroids. Numerous agents (Zofran, Phenergan, Compazine, Tigan, erythromycin, scopolamine patch, Benadryl) showed zero efficacy. Patient still endorses heavy nausea and exhibits mild abdominal pain. Awaiting a gastric emptying study but not able to tolerate PO. Had EGD to r/u gastritis/ulcers/intra-luminal malignancy, revealed medium food burden quite indicative of gastroparesis. Nausea improved with Amend and erythromycin. - taper Decadron, will transition to 4mg q12h later today - c/w erythromycin 6mg/kg q8h - c/w IV Benadryl to 50 mg QID - c/w Tigan, Phenergan, Zofran - c/w scopolamine patch - consult GI, appreciate recs - aggressive glucose control - new EKG today #Anasarca #Nephrotic-range proteinuria #CKD #Suspected diabetic nephropathy #Hypokalemia #Vit D def > Presented volume overloaded, now much less so and diuresing appropriately. Has severe nephrotic-range proteinuria with incomplete prior workup. Serum albumin >2.5-3 not consistent with fulminant nephrotic syndrome. - switch to PO Lasix 40mg bid - strict I/Os and daily weight - C3 & C4 (essentially -), cryoglobulin, SPEP/UPEP, anti-ds DNA (-), anti-Sm , syphilis antibodies (-) - DVT ppx w/ LMWH - consider repeat nephrology consult in near-term, incl assessment for possible renal biopsy - Vit D qWeekly #HTN > Resume home meds. Not tolerating them consistently due to N/V. Expect control to improve withre-introduction of PO meds. - c/w amlodipine 10 mg QD and carvedilol 37.5 mg BID - prn hydralazine PAIN: Controlled Tylenol Prophylaxis: DVT- heparin Stress Ulcer: pantoprazole Code Status: addressed: Full code Lefty Jerez MD Internal Medicine PGY-3 pager: [phone] END OF DAILY PROGRESS NOTE HOSPITAL COURSE Patient is a readmit to [facility] Team. Previous admission was identical with intractable n/v responsive only to steroids. Numerous agents (Zofran, Phenergan , Compazine, Tigan, erythromycin, scopolamine patch, Benadryl) showed zero efficacy. Patient continues to be nauseous and exhibits mild abdominal improvement. EGD with features of gastroparesis and LA grade C esophagitis, starting erythromycin. Nausea improving at this time. GRADER Associated attestation - Deya Perez MD - 12/05/2019 10:26 PM CSTI personally examined the patient on 12/05/[address] Jerez's resident note with the following additions: performed extensive chart review and summarized progressive kidney disease, now stage 4 with nephrotic syndrome ( diagnosed last month by nephrology) thought secondary to DM with history of prolonged NSAID use, uncontrolled DM with recent A1c 7.8% but likely falsely low in the setting of GRANT, history of PUD diagnosed OSH and with recent EGD with esophagitis and retained food making likely diagnosis gastroparesis, with persistent nausea, vomiting, abdominal pain, and inability to tolerate po. Chart review also revealed pleural effusion and mild-mod pericardial effusion on TTE last month. Will plan the following: Restart reglan renally dosed 5 mg IV (if unable to tolerate elixir) qid Continue with erythromycin as per GI recommendations for acute flare Optimize glycemic control - will discontinue decadron (was not on senior care so does not need taper) Ideally will hydrate given decrease po intake - repeat CXR, monitor oxygenation , and consider repeatTTE - pending results will d/c lasix and consider gentle IVF Treat severe vitamin D deficiency Renally dose medications Pending clinical course, may need to consider gastric decompression and nutritional feeding via PEJ in light of weight loss (noted >10% loss in less than 2 months from 150 lbs in September ED visit to 131 lbs now). DDx also includes uremia vs chronic pancreatitis, although more suspicious of gastroparesis of etiology in light of EGD findings. I actively participated in the decision-making process. Please see the resident's note for additional details.Med Head MBBS - 12/04/2019 5:20 PM WOOL GRADER Progress notes: - LA Grade C reflux esophagitis. - Z-line regular, 35 cm from the incisors. - A medium amount of food (residue) in the stomach. - Gastroparesis. - Pylorus initially tight and difficult to traverse, but once traversed found to be patent and peristalsis observed. - Gastritis. Biopsied to evaluate for H pylori. - Normal duodenal bulb, first portion of the duodenum and second portion of the Duodenum. Recommendations: Protonix (pantoprazole) 40 mg PO BID. Perform a gastric emptying study For Gastroparesis: Diets low in fat and fiber. Avoid carbonated beverages (aggravate gastric distension) Avoid alcohol and smoking- can decrease antral contractility Vitamin supplementation Acute hyperglycemia can slow gastric emptying and should be avoided. Prokinetic - liquid formulations if available for better absorption Start erythromycin 3 mg/kg IV q 8 hrs or IV azithromycin for acute gastroparesis flare up. She needsa prokinetic agent as we believe her gastroparesis is causing her nausea and vomiting. EKG daily to check for QTc interval and make sure its not more than 500 millisecond while we treat with erythromycin or azithromycin Dr. Med Head PGY-4 Division of Gastroenterology and Hepatology Pager: [phone] Wendy Sinclair RN - 12/04/2019 9:03 AM CSTCare Management Social Functional Assessment Patient Name: Ese Gonzales Age: [age] year old Sex: female Patient's Previous Admission Date at [facility]: 11/15/2019 Current diagnosis and co-morbidities: intractable nausea and vomiting Readmission Questions: Was patient discharged from any acute care hospital within the last 30 days: Yes Were all questions regarding previous illness/diagnosis answered prior to discharge: Yes Did you have any difficulties with your discharge instructions: No Were you able to go to your follow-up discharge appointments: No If No, comment: readmitted prior to f/u appt Any difficulties after discharge with medications: No [...] N/A Social Functional Assessment: Primary language spoken/preferred: Niuean Mental Status: Alert & Oriented to Person,Place & Time Information given by: Self Patient's support system: Other;Spouse Name and number of support system: Amarjit Gonzales, spouse ([phone]); Carlyn Ellis, sister([phone]) Primary Carpenter General: Self MPOA: No Living Arrangement: Mobile Home Address of living arrangement : [address] [place] [address] [address], [place] [phone] Persons living in home: Self;Same as support system Barriers to returning home: None Baseline functional status- ambulation: Independent Functional status-baseline personal care: Independent Baseline functional status- driving: Independent Baseline functional status- grocery shopping: Independent Functional status-baseline housekeeping: Independent Functional status-baseline meal prep: Independent Current functional status same as prior: Yes Do you have a PCP?: Yes Name of PCP: Liv Khan NP Home Health Care Agency: No Provider Services: No DME Company: No Equipment: None Hemodialysis: No Community resources utilized: [facility] Fact Sheet Funding Resources: Self Pay Prescription coverage plan: Self Pay Pharmacy where meds are filled: Other Other pharmacy: [facility] [address] [place] [address] Anticipated services prior to disharge: Continue Medical Eval;Lab Values; Reassess prior to discharge Expected mode of discharge transportation: Personal vehicle;Same as support system Additional Recommendations for DC: Patient will dc home with her spouse, Amarjit ([phone]) Additional info required for discharge planning: Pending medical evaluation Recommended discharge plan: Home SFA Complete: Social Functional Assessment complete: Yes Alcohol Use Screening (AUDIT-C) How often do you have a drink containing alcohol?: Never SCORE: 0 Any issues or concerns with obtaining/affording your medications at home: no. Are you or your support system able to brick picker medications at discharge: yes. Describe: patient is able to get her own medications. Role of Care Management explained. CM met with patient at the bedside. No changes from previous admission. CHP referral made at discharge previously. Patient has very little to no funding options as she is not a [place] citizen, as noted by referral made to [facility] on previous admission. CM provided Good RX card at last admission as well. CM/SW will follow up with any discharge needs. Wendy Jo RN, BSN [employer] Manager [email or web address] (O) [phone] (C) [phone] Greg Prabhakar MD - 12/04/2019 7:20 AM CST [facility] Progress Note Date of Service: 12/04/2019 08:52 Chief Complaint: nausea & vomiting 24-HOUR EVENTS: - NAOE - awaiting GES SUBJECTIVE: Patient states she's feeling bad. She continues to endorse heavy nausea and had an episode of emesisthis AM. Has not been eating or tolerating PO meds. Endorses mild abdominal pain. PHYSICAL EXAM: Vitals: 12/03/19 2130 12/03/19 2300 12/04/19 0335 12/04/19 0722 BP: (!) 154/97 (!) 197/93 (!) 158/83 Pulse: 90 103 105 104 Resp: 18 18 18 16 Temp: 36.7 C (98.1 F) 36.7 C (98 F) 37.1 C (98.8 F) TempSrc: Oral Oral Oral SpO2: 100% 100% 100% Weight: 131 lb 2.8 oz (59.5 kg) Intake/Output Summary (Last 24 hours) at 12/04/2019 0852 Last data filed at 12/04/2019 0600 Gross per 24 hour Intake 70 ml Output 1500 ml Net -1430 ml General: alert and oriented; looking uncomfortable in bed Lungs: clear to auscultation bilaterally Cardio: S1, S2 normal; no murmurs, rubs or gallops Abdomen: soft; tender to palpation of RUQ, LUQ, and epigastrium; non-distended; normoactive bowel sounds Extremities: no clubbing, cyanosis; +1 edema up to mid foot/ankle (improved) LABS/IMAGING - reviewed, pertinent results as below: BMP NA (mmol/L) Date Value 12/04/2019 136 K (mmol/L) Date Value 12/04/2019 3.5 CALCIUM (mg/dL) Date Value 12/04/2019 9.1 CL (mmol/L) Date Value 12/04/2019 100 BUN (mg/dL) Date Value 12/04/2019 23 CREATININE (mg/dL) Date Value 12/04/2019 2.55 (H) GLUCOSE (mg/dL) Date Value 12/04/2019 209 (H) CO2 TOTAL (mmol/L) Date Value 12/04/2019 21 (L) ASSESSMENT/PLAN Ese Gonzales is a 39 year old female admitted to the hospital with: #Intractable N/V #DMII c/b diabetic gastroparesis & probable diabetic nephropathy > [facility] Previous [facility] was identical with intractable n/v responsive only to steroids. Numerous agents (Zofran, Phenergan, Compazine, Tigan, erythromycin, scopolamine patch, Benadryl) showed zero efficacy. Patient still endorses heavy nausea and exhibits mild abdominal pain. Awaiting a gastric emptying study and will hold pro-kinetics for now. Will increase IV Benadryl and add Tigan scheduled now to maximize chance for a) nausea control, b) ability to tolerateGES. - c/w Decadron 8mg q8h - increase IV Benadryl to 50 mg QID - add kenny'd Tigan - c/w scopolamine patch - consult GI, appreciate recs - NM gastric emptying study; hold pro-kinetics; will not be able to participate w/ exam until able to eat - Phenergan and Zofran prn - aggressive glucose control #Anasarca #Nephrotic-range proteinuria #CKD #Suspected diabetic nephropathy #Hypokalemia #Vit D def > Presented volume overloaded. Appears to have less edema in BLE now that she is on IV Lasix. Diuresing appropriately. Has severe nephrotic-range proteinuria with incomplete prior workup. - reduce to IV Lasix 20 mg bid - strict I/Os and daily weight - C3 & C4 (essentially -), cryoglobulin, SPEP/UPEP, anti-ds DNA (-), anti-Sm , syphilis antibodies (-) - DVT ppx w/ LMWH - consider repeat nephrology consult in near-term, incl assessment for possible renal biopsy - Vit D qWeekly #HTN > Resume home meds. Not tolerating them consistently due to N/V - c/w amlodipine 10 mg QD and carvedilol 37.5 mg BID - prn hydralazine PAIN: Controlled Tylenol Prophylaxis: DVT- heparin Stress Ulcer: pantoprazole Code Status: addressed: Full code Washington Cotto, MS4 I personally examined the patient on 12/04/2019 and have verified the MS4's medical student documentation and/or findings, including the history, physical exam, and medical decision making. Additionally,I have personally performed or re-performed the physical exam and medical decision making activitiesof this patient's evaluation and management service. Lefty Jerez MD Internal Medicine PGY-3 pager: [phone] END OF DAILY PROGRESS NOTE HOSPITAL COURSE Patient is a readmit to [facility] team. Previous admission was identical with intractable n/v responsive only to steroids. Numerous agents (Zofran, Phenergan , Compazine, Tigan, erythromycin, scopolamine patch, Benadryl) showed zero efficacy. Patient continues to be nauseous and exhibits mild abdominal improvement. Awaiting a gastric emptying study and will hold pro-kinetics for now. Will add IV Benadryl and increase IV Decadron dose for now. GRADER Associated attestation - Torrie Maciel MD - 12/04/2019 6:04 PM CSTI personally examined the patient on 12/04/[address] Jerez's resident note as written, including any changes or additions that the resident may have made to Washington Cotto's medical studentnote with the following addition (s): Pt with continued nausea and vomiting. EGD performed today showed esophagitis, gastritis and retained food in the stomach pointing to diabetic gastroparesis. Willwean decadron, start erythromycin, and work on glucose control. I actively participated in the decision making process. Please see the resident's note for additional details. Torrie Maciel MD [facility] of [facility] O: C: F: Anisha Coyne - 12/03/2019 2:22 PM CSTSocial Work Note 12/03/2019 2:22 PM SW attempted to complete SFA, patient currently vomiting, unable to complete interview at this time.CC/SW to follow up as time permits. Anisha Coyne, [facility] Care Management P [phone] [email or web address] [email or web address] MBBS - 12/03/2019 1:05 PM CST GI Service Progress Note Chief Complaint: Nausea, vomiting and abdominal pain SUBJECTIVE/Interval history: Patient laying on bed. Had 3 episodes of vomiting last night. Persistent nausea. Getting antiemetics. Off prokinetics for GES Patient has constipation as well. A year ago, she was having one bowel movement a day and now she has one BM every 4-5 days. No belly distension. CURRENT MEDICATIONS - reviewed. PHYSICAL EXAM: BP (!) 146/75 | Pulse 93 | Temp 36.8 C (98.2 F) (Oral) | Resp 18 | Wt 59.5 kg (131 lb 2.8 oz) | LMP 11/18/2019 (Approximate) | SpO2 97% | BMI 23.96 kg/m General : awake and alert, NAD ENT: Moist mucous membranes, pupils equal, EOMI Cardiovascular: RRR, normal S1 and S2, No lower extremity edema Respiratory: Clear to auscultation bilaterally, normal effort, no crackles or wheezing Gastrointestinal: soft, mild tenderness in epigastrium, no distension, decreased bowel sounds Psychiatric: oriented x 3, appropriate affect and cognition LABS/IMAGING - reviewed, pertinent results as below: 12/03/2019 09:18 NA 136 K 3.8 CL 101 CO2 TOTAL 22 (L) AGAP 13 BUN 22 GLUCOSE 247 (H) CREATININE 2.26 (H) CALCIUM 8.8 MAGNESIUM 2.1 MRI Brain- no acute intracranial abnormality ASSESSMENT/PLAN Ese Gonzales is a 39 year old female Suspected diabetic gastroparesis: Patient having flare up since August. She has new onset of constipation as well. 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 Gastric emptying study to document/diagnose gastroparesis- ordered by primary team MRI brain ruled out any central causes of nausea. Recommendations: Diets low in fat and fiber. Avoid carbonated beverages (aggravate gastric distension) Avoid alcohol and smoking- can decrease antral contractility Vitamin supplementation Acute hyperglycemia can slow gastric emptying and should be avoided. Prokinetic - liquid formulations if available for better absorption Agree with holding prokinetic for GES. Once she gets it, we can start erythromycin 3 mg/kg IV q 8 hrs. EKG to check for QTc interval Patient seen and discussed with faculty Vernon Miller GI service will continue to follow Dr. Med Head Division of Gastroenterology and Hepatology, PGY-4 Pager: [phone] GRADER Associated attestation - Vernon Soliman MD - 12/03/2019 9:52 PM CSTI examined the patient on 12/03/[address] Head's note as written. I actively participated in the decision-making process. Please see the note for additional details. Greg Jerez MD - 12/03/2019 11:11 AM CST [facility] Progress Note Date of Service: 12/03/2019 07:20 Chief Complaint: nausea & vomiting 24-HOUR EVENTS: - MRI head - negative - Still nauseated - Re-admitted to [facility] SUBJECTIVE: Patient states she's feeling bad today. She continues to endorse the same amount of heavy nausea as yesterday. Had an episode of emesis o/n and this morning. States that abdominal pain is less than before. Denies fevers, chills, CP, SOB. Last BM was 2 days ago. PHYSICAL EXAM: Vitals: 12/02/19 1905 12/02/19 2303 12/03/19 0453 12/03/19 0605 BP: (!) 187/95 (!) 174/88 (!) 185/97 (!) 163/89 Pulse: 108 98 92 105 Resp: 18 18 18 18 Temp: 36.7 C (98 F) 37 C (98.6 F) 36.6 C (97.9 F) TempSrc: Oral Oral Oral SpO2: 100% 100% 100% 96% Weight: 131 lb 2.8 oz (59.5 kg) Intake/Output Summary (Last 24 hours) at 12/03/2019 0720 Last data filed at 12/03/2019 0600 Gross per 24 hour Intake 150 ml Output 550 ml Net -400 ml General: alert and oriented; looking uncomfortable in bed Lungs: clear to auscultation bilaterally Cardio: S1, S2 normal; no murmurs, rubs or gallops Abdomen: soft; tender to palpation of RUQ, LUQ, and epigastrium; non-distended; normoactive bowel sounds Extremities: no clubbing, cyanosis; +1 edema up to lower shins BL LABS/IMAGING - reviewed, pertinent results as below: MRI brain w/wo contrast 12/03/2019 IMPRESSION No acute intracranial abnormality. ASSESSMENT/PLAN Ese Gonzales is a 39 year old female admitted to the hospital with: #Intractable N/V #DMII c/b diabetic gastroparesis & probable diabetic nephropathy > Patient is a readmit to [facility] team. Previous admission was identical with intractable n/v responsive only to steroids. Numerous agents (Zofran, Phenergan, Compazine, Tigan, erythromycin, scopolamine patch, Benadryl) showed zero efficacy. Patient continues to be nauseous and exhibits mild abdominal improvement. Awaiting a gastric emptying study and will hold pro-kinetics for now. Will add IV Benadryl and increase IV Decadron dose for now to maximize chance for a) nausea control, b) ability totolerate GES. - escalate to Decadron 8mg q8h - start IV Benadryl 25 mg QID - c/w scopolamine patch - consult GI, appreciate recs - NM gastric emptying study; hold pro-kinetics; will not be able to participate w/ exam until able to eat - Phenergan and Zofran prn - aggressive glucose control #Anasarca #Nephrotic-range proteinuria #CKD #Suspected diabetic nephropathy #Hypokalemia > Presented volume overloaded. Appears to have less edema in BLE now that she is on IV Lasix. Has severe nephrotic-range proteinuria with incomplete prior workup. - c/w IV Lasix 40 mg bid - strict I/Os and daily weight - C3, C4, cryoglobulin, SPEP/UPEP, anti-ds DNA, anti-Sm, lipid panel, vit D, LFTs, syphilis antibodies - switch DVT ppx to Lovenox - consider repeat nephrology consult in near-term, incl assessment for possible renal biopsy #HTN > Resume home meds. - c/w amlodipine 10 mg QD and carvedilol 37.5 mg BID PAIN: Controlled Tylenol Prophylaxis: DVT- heparin Stress Ulcer: pantoprazole Code Status: addressed: Full code Washington Cotto, MS4 I personally examined the patient on 12/03/2019 and have verified the MS4's medical student documentation and/or findings, including the history, physical exam, and medical decision making. Additionally,I have personally performed or re-performed the physical exam and medical decision making activitiesof this patient's evaluation and management service. Lefty Jerez MD Internal Medicine PGY-3 pager: [phone] END OF DAILY PROGRESS NOTE HOSPITAL COURSE Patient is a readmit to [facility] team. Previous admission was identical with intractable n/v responsive only to steroids. Numerous agents (Zofran, Phenergan , Compazine, Tigan, erythromycin, scopolamine patch, Benadryl) showed zero efficacy. Patient continues to be nauseous and exhibits mild abdominal improvement. Awaiting a gastric emptying study and will hold pro-kinetics for now. Will add IV Benadryl and increase IV Decadron dose for now. GRADER Associated attestation - Torrie Maciel MD - 12/04/2019 6:01 PM CSTI personally examined the patient on 12/03/[address] Jerez's resident note as written, including any changes or additions that the resident may have made to Washington Cotto's medical studentnote as written. I actively participated in the decision making process. Please see the resident's note for additional details. Torrie Maciel MD [facility] of Internal Medicine O: C: F: documented in this encounter Plan of Treatment Name Type Priority Associated Diagnoses Date/Time ELECTROPHORESIS, SERUM & LAB Routine 12/02/2019 3:35 AM WOOL GRADER URINE ELECTROPHORESIS, SERUM LAB Routine 12/03/2019 4:44 PM WOOL GRADER Electrophoresis, Urine LAB Routine 12/02/2019 3:35 AM WOOL GRADER Name Type Priority Associated Diagnoses Order Schedule BASIC METABOLIC LAB Routine EVERY MORNING AT 0400 PANEL (NA, K, CL, until discontinued CO2, GLUCOSE, BUN, starting 12/04/2019, 9 CREATININE, CA) completed MAGNESIUM LAB Routine EVERY MORNING AT 0400 until discontinued starting 12/04/2019, 9 completed ELECTROPHORESIS, LAB Routine ONCE for 1 Occurrences SERUM & URINE starting 12/03/2019 until 12/03/2019 Electrophoresis, LAB Routine Once for 1 Occurrences Urine starting 12/03/2019 until 12/03/2019, 1 completed POCT GLUCOSE(AGE LAB Routine ONCE for 1 Occurrences 0-30DAYS) starting 12/04/2019 until 12/04/2019 EKG-12 LEAD ROUTINE HEART STATION Routine ONCE for 1 Occurrences starting 12/05/2019 until 12/05/2019 PHOSPHORUS LAB Routine EVERY MORNING AT 0400 until discontinued starting 12/07/2019, 6 completed EKG-12 LEAD ROUTINE HEART STATION Routine EVERY MORNING AT 4:00 AM until discontinued starting 12/07/2019 EKG-12 LEAD ROUTINE HEART STATION STAT ONCE for 1 Occurrences starting 12/06/2019 until 12/06/2019 CBC WITH DIFF LAB Routine EVERY 24 HOURS (START TIME ADJUSTABLE) until discontinued starting 12/07/2019, 6 completed Health Maintenance Due Date Last Done Comments VARICELLA VACCINES (1 of 2 - 1982 2-dose childhood series) EYE EXAM 1991 URINE MICROALBUMIN 1991 FOOT EXAM 1999 PAP SMEAR 05/07/2016 05/07/2013, 05/06/2012, 03/08/2011, Additional history exists HgA1C 05/07/2020 11/07/2019 PNEUMOCOCCAL 0-64 YEARS COMBINED 11/21/2020 11/21/2019 SERIES (2 of 3 - PCV13) LDL-C 12/03/2020 12/03/2019, 11/07/2019 CREATININE (SERUM) 12/11/2020 12/11/2019, 12/10/2019, 12/09/2019, Additional history exists DTaP,Tdap,and Td Vaccines (2 - Td) 12/11/2029 12/11/2019, 05/07/2009 INFLUENZA VACCINE Completed 11/21/2019 documented as of this encounter Procedures Procedure Name Priority Date/Time Associated Comments Diagnosis POCT GLUCOSE (AUTOMATED) Routine 12/12/2019 Results for 12:56 PM WOOL GRADER this procedure are in the results section. POCT GLUCOSE (AUTOMATED) Routine 12/12/2019 Results for 10:26 AM WOOL GRADER this procedure are in the results section. EKG-12 LEAD Routine 12/12/2019 8:55 AM WOOL GRADER BASIC METABOLIC PANEL (NA, K, Routine 12/12/2019 Results for CL, CO2, GLUCOSE, BUN, 5:55 AM WOOL GRADER this procedure CREATININE, CA) are in the results section. MAGNESIUM Routine 12/12/2019 Results for 5:55 AM WOOL GRADER this procedure are in the results section. PHOSPHORUS Routine 12/12/2019 Results for 5:55 AM WOOL GRADER this procedure are in the results section. CBC WITH DIFFERENTIAL Routine 12/12/2019 Results for 5:54 AM WOOL GRADER this procedure are in the results section. CBC WITH DIFFERENTIAL Routine 12/12/2019 Results for 5:54 AM WOOL GRADER this procedure are in the results section. POCT GLUCOSE (AUTOMATED) Routine 12/11/2019 Results for 11:32 PM WOOL GRADER this procedure are in the results section. POCT GLUCOSE (AUTOMATED) Routine 12/11/2019 Results for 10:46 PM WOOL GRADER this procedure are in the results section. POCT GLUCOSE (AUTOMATED) Routine 12/11/2019 Results for 10:30 PM WOOL GRADER this procedure are in the results section. POCT GLUCOSE (AUTOMATED) Routine 12/11/2019 Results for 10:14 PM WOOL GRADER this procedure are in the results section. POCT GLUCOSE (AUTOMATED) Routine 12/11/2019 Results for 9:59 PM WOOL GRADER this procedure are in the results section. POCT GLUCOSE (AUTOMATED) Routine 12/11/2019 Results for 8:29 PM WOOL GRADER this procedure are in the results section. POCT GLUCOSE (AUTOMATED) Routine 12/11/2019 Results for 5:35 PM WOOL GRADER this procedure are in the results section. POCT GLUCOSE (AUTOMATED) Routine 12/11/2019 Results for 12:22 PM WOOL GRADER this procedure are in the results section. POCT GLUCOSE (AUTOMATED) Routine 12/11/2019 Results for 8:21 AM WOOL GRADER this procedure are in the results section. CBC WITH DIFFERENTIAL Routine 12/11/2019 Results for 4:35 AM WOOL GRADER this procedure are in the results section. CBC WITH DIFFERENTIAL Routine 12/11/2019 Results for 4:35 AM WOOL GRADER this procedure are in the results section. BASIC METABOLIC PANEL (NA, K, Routine 12/11/2019 Results for CL, CO2, GLUCOSE, BUN, 4:35 AM WOOL GRADER this procedure CREATININE, CA) are in the results section. MAGNESIUM Routine 12/11/2019 Results for 4:35 AM WOOL GRADER this procedure are in the results section. PHOSPHORUS Routine 12/11/2019 Results for 4:35 AM WOOL GRADER this procedure are in the results section. POCT GLUCOSE (AUTOMATED) Routine 12/10/2019 Results for 8:40 PM WOOL GRADER this procedure are in the results section. POCT GLUCOSE (AUTOMATED) Routine 12/10/2019 Results for 6:35 PM WOOL GRADER this procedure are in the results section. POCT GLUCOSE (AUTOMATED) Routine 12/10/2019 Results for 5:56 PM WOOL GRADER this procedure are in the results section. POCT GLUCOSE (AUTOMATED) Routine 12/10/2019 Results for 12:14 PM WOOL GRADER this procedure are in the results section. POCT GLUCOSE (AUTOMATED) Routine 12/10/2019 Results for 9:12 AM WOOL GRADER this procedure are in the results section. EKG-12 LEAD Routine 12/10/2019 7:35 AM WOOL GRADER CBC WITH DIFFERENTIAL Routine 12/10/2019 Results for 4:59 AM WOOL GRADER this procedure are in the results section. CBC WITH DIFFERENTIAL Routine 12/10/2019 Results for 4:59 AM WOOL GRADER this procedure are in the results section. BASIC METABOLIC PANEL (NA, K, Routine 12/10/2019 Results for CL, CO2, GLUCOSE, BUN, 4:59 AM WOOL GRADER this procedure CREATININE, CA) are in the results section. MAGNESIUM Routine 12/10/2019 Results for 4:59 AM WOOL GRADER this procedure are in the results section. PHOSPHORUS Routine 12/10/2019 Results for 4:59 AM WOOL GRADER this procedure are in the results section. CORTISOL STIMULATION 60 MIN Routine 12/09/2019 Results for 9:12 PM WOOL GRADER this procedure are in the results section. POCT GLUCOSE (AUTOMATED) Routine 12/09/2019 Results for 9:03 PM WOOL GRADER this procedure are in the results section. CORTISOL STIMULATION 30 MIN Routine 12/09/2019 Results for 8:36 PM WOOL GRADER this procedure are in the results section. CORTISOL STIMULATION 0 MIN Routine 12/09/2019 Results for 7:56 PM WOOL GRADER this procedure are in the results section. POCT GLUCOSE (AUTOMATED) Routine 12/09/2019 Results for 4:13 PM WOOL GRADER this procedure are in the results section. BASIC METABOLIC PANEL (NA, K, Routine 12/09/2019 Results for CL, CO2, GLUCOSE, BUN, 1:11 PM WOOL GRADER this procedure CREATININE, CA) are in the results section. OSMOLALITY SERUM Routine 12/09/2019 Results for 1:11 PM WOOL GRADER this procedure are in the results section. OSMOLALITY URINE Routine 12/09/2019 Results for 1:01 PM WOOL GRADER this procedure are in the results section. POCT GLUCOSE (AUTOMATED) Routine 12/09/2019 Results for 12:12 PM WOOL GRADER this procedure are in the results section. POCT GLUCOSE (AUTOMATED) Routine 12/09/2019 Results for 8:50 AM WOOL GRADER this procedure are in the results section. CBC WITH DIFFERENTIAL Routine 12/09/2019 Results for 4:51 AM WOOL GRADER this procedure are in the results section. CBC WITH DIFFERENTIAL Routine 12/09/2019 Results for 4:51 AM WOOL GRADER this procedure are in the results section. BASIC METABOLIC PANEL (NA, K, Routine 12/09/2019 Results for CL, CO2, GLUCOSE, BUN, 4:51 AM WOOL GRADER this procedure CREATININE, CA) are in the results section. CORTISOL AM Add-on 12/09/2019 Results for 4:51 AM WOOL GRADER this procedure are in the results section. MAGNESIUM Routine 12/09/2019 Results for 4:51 AM WOOL GRADER this procedure are in the results section. PHOSPHORUS Routine 12/09/2019 Results for 4:51 AM WOOL GRADER this procedure are in the results section. POCT GLUCOSE (AUTOMATED) Routine 12/08/2019 Results for 8:56 PM WOOL GRADER this procedure are in the results section. POCT GLUCOSE (AUTOMATED) Routine 12/08/2019 Results for 5:49 PM WOOL GRADER this procedure are in the results section. POCT GLUCOSE (AUTOMATED) Routine 12/08/2019 Results for 12:58 PM WOOL GRADER this procedure are in the results section. XR CHEST 2 VW ELIJAH 12/08/2019 Nephrotic Results for 12:19 PM WOOL GRADER syndrome this procedure are in the results section. EKG-12 LEAD Routine 12/08/2019 7:43 AM WOOL GRADER POCT GLUCOSE (AUTOMATED) Routine 12/08/2019 Results for 7:32 AM WOOL GRADER this procedure are in the results section. CBC WITH DIFFERENTIAL Routine 12/08/2019 Results for 4:17 AM WOOL GRADER this procedure are in the results section. CBC WITH DIFFERENTIAL Routine 12/08/2019 Results for 4:17 AM WOOL GRADER this procedure are in the results section. BASIC METABOLIC PANEL (NA, K, Routine 12/08/2019 Results for CL, CO2, GLUCOSE, BUN, 4:17 AM WOOL GRADER this procedure CREATININE, CA) are in the results section. MAGNESIUM Routine 12/08/2019 Results for 4:17 AM WOOL GRADER this procedure are in the results section. PHOSPHORUS Routine 12/08/2019 Results for 4:17 AM WOOL GRADER this procedure are in the results section. POCT GLUCOSE (AUTOMATED) Routine 12/07/2019 Results for 11:06 PM WOOL GRADER this procedure are in the results section. POCT GLUCOSE (AUTOMATED) Routine 12/07/2019 Results for 7:53 PM WOOL GRADER this procedure are in the results section. POCT GLUCOSE (AUTOMATED) Routine 12/07/2019 Results for 3:36 PM WOOL GRADER this procedure are in the results section. POCT GLUCOSE (AUTOMATED) Routine 12/07/2019 Results for 12:22 PM WOOL GRADER this procedure are in the results section. ECHO ROUTINE W/DOPPLER COLOR STAT 12/07/2019 Nephrotic 11:04 AM WOOL GRADER syndrome QUANTIFERON-TB ASSAY Routine 12/07/2019 Results for 10:42 AM WOOL GRADER this procedure are in the results section. POCT GLUCOSE (AUTOMATED) Routine 12/07/2019 Results for 8:01 AM WOOL GRADER this procedure are in the results section. EKG-12 LEAD Routine 12/07/2019 7:20 AM WOOL GRADER POCT GLUCOSE (AUTOMATED) Routine 12/07/2019 Results for 4:53 AM WOOL GRADER this procedure are in the results section. CBC WITH DIFFERENTIAL Routine 12/07/2019 Results for 4:41 AM WOOL GRADER this procedure are in the results section. CBC WITH DIFFERENTIAL Routine 12/07/2019 Results for 4:41 AM WOOL GRADER this procedure are in the results section. BASIC METABOLIC PANEL (NA, K, Routine 12/07/2019 Results for CL, CO2, GLUCOSE, BUN, 4:41 AM WOOL GRADER this procedure CREATININE, CA) are in the results section. MAGNESIUM Routine 12/07/2019 Results for 4:41 AM WOOL GRADER this procedure are in the results section. PHOSPHORUS Routine 12/07/2019 Results for 4:41 AM WOOL GRADER this procedure are in the results section. POCT GLUCOSE (AUTOMATED) Routine 12/07/2019 Results for 1:54 AM WOOL GRADER this procedure are in the results section. POCT GLUCOSE (AUTOMATED) Routine 12/06/2019 Results for 11:15 PM WOOL GRADER this procedure are in the results section. POCT GLUCOSE (AUTOMATED) Routine 12/06/2019 Results for 8:43 PM WOOL GRADER this procedure are in the results section. POCT GLUCOSE (AUTOMATED) Routine 12/06/2019 Results for 5:06 PM WOOL GRADER this procedure are in the results section. POCT GLUCOSE (AUTOMATED) Routine 12/06/2019 Results for 2:41 PM WOOL GRADER this procedure are in the results section. EKG-12 LEAD Routine 12/06/2019 2:23 PM WOOL GRADER XR CHEST 1 VW STAT 12/06/2019 Nephrotic Results for 12:10 PM WOOL GRADER syndrome this procedure are in the results section. POCT GLUCOSE (AUTOMATED) Routine 12/06/2019 Results for 11:32 AM WOOL GRADER this procedure are in the results section. POCT GLUCOSE (AUTOMATED) Routine 12/06/2019 Results for 8:09 AM WOOL GRADER this procedure are in the results section. POCT GLUCOSE (AUTOMATED) Routine 12/06/2019 Results for 5:02 AM WOOL GRADER this procedure are in the results section. POCT GLUCOSE (AUTOMATED) Routine 12/06/2019 Results for 3:56 AM WOOL GRADER this procedure are in the results section. BASIC METABOLIC PANEL (NA, K, Routine 12/06/2019 Results for CL, CO2, GLUCOSE, BUN, 3:41 AM WOOL GRADER this procedure CREATININE, CA) are in the results section. HEPATIC FUNCTION PANEL ([id number]) Add-on 12/06/2019 Results for (ALB,T.PRO,BILI 3:41 AM WOOL GRADER this procedure T,BU/BC,ALT,AST,ALK PHOS) are in the results section. MAGNESIUM Routine 12/06/2019 Results for 3:41 AM WOOL GRADER this procedure are in the results section. PHOSPHORUS Add-on 12/06/2019 Results for 3:41 AM WOOL GRADER this procedure are in the results section. POCT GLUCOSE (AUTOMATED) Routine 12/06/2019 Results for 2:01 AM WOOL GRADER this procedure are in the results section. POCT GLUCOSE (AUTOMATED) Routine 12/05/2019 Results for 7:33 PM WOOL GRADER this procedure are in the results section. POCT GLUCOSE (AUTOMATED) Routine 12/05/2019 Results for 6:08 PM WOOL GRADER this procedure are in the results section. POCT GLUCOSE (AUTOMATED) Routine 12/05/2019 Results for 3:17 PM WOOL GRADER this procedure are in the results section. POCT GLUCOSE (AUTOMATED) Routine 12/05/2019 Results for 12:04 PM WOOL GRADER this procedure are in the results section. POCT GLUCOSE (AUTOMATED) Routine 12/05/2019 Results for 8:45 AM WOOL GRADER this procedure are in the results section. EKG-12 LEAD Routine 12/05/2019 8:20 AM WOOL GRADER BASIC METABOLIC PANEL (NA, K, Routine 12/05/2019 Results for CL, CO2, GLUCOSE, BUN, 4:47 AM WOOL GRADER this procedure CREATININE, CA) are in the results section. THYROID STIMULATING HORMONE Add-on 12/05/2019 Results for 4:47 AM WOOL GRADER this procedure are in the results section. MAGNESIUM Routine 12/05/2019 Results for 4:47 AM WOOL GRADER this procedure are in the results section. POCT GLUCOSE (AUTOMATED) Routine 12/05/2019 Results for 4:22 AM WOOL GRADER this procedure are in the results section. POCT GLUCOSE (AUTOMATED) Routine 12/05/2019 Results for 12:46 AM WOOL GRADER this procedure are in the results section. POCT GLUCOSE (AUTOMATED) Routine 12/04/2019 Results for 4:20 PM WOOL GRADER this procedure are in the results section. SURGICAL PATHOLOGY EXAM STAT 12/04/2019 Results for 2:48 PM WOOL GRADER this procedure are in the results section. POCT GLUCOSE (AUTOMATED) Routine 12/04/2019 Results for 2:29 PM WOOL GRADER this procedure are in the results section. ESOPHAGOGASTRODUODENOSCOPY 12/04/2019 Vomiting 2:28 PM WOOL GRADER EGD (ENDO) Routine 12/04/2019 2:20 PM WOOL GRADER POCT GLUCOSE (AUTOMATED) Routine 12/04/2019 Results for 11:49 AM WOOL GRADER this procedure are in the results section. BASIC METABOLIC PANEL (NA, K, Routine 12/04/2019 Results for CL, CO2, GLUCOSE, BUN, 3:50 AM WOOL GRADER this procedure CREATININE, CA) are in the results section. MAGNESIUM Routine 12/04/2019 Results for 3:50 AM WOOL GRADER this procedure are in the results section. POCT GLUCOSE (AUTOMATED) Routine 12/04/2019 Results for 3:36 AM WOOL GRADER this procedure are in the results section. POCT GLUCOSE (AUTOMATED) Routine 12/03/2019 Results for 10:59 PM WOOL GRADER this procedure are in the results section. POCT GLUCOSE (AUTOMATED) Routine 12/03/2019 Results for 9:03 PM WOOL GRADER this procedure are in the results section. POCT GLUCOSE (AUTOMATED) Routine 12/03/2019 Results for 5:38 PM WOOL GRADER this procedure are in the results section. CRYOGLOBULIN QUALITATIVE Routine 12/03/2019 Results for 4:46 PM WOOL GRADER this procedure are in the results section. GALV ONLY - SYPHILIS IGG/IGM Routine 12/03/2019 Results for 4:44 PM WOOL GRADER this procedure are in the results section. ANTI-DOUBLE STRANDED DNA Add-on 12/03/2019 Results for 4:44 PM WOOL GRADER this procedure are in the results section. ANTI-TURPIN(SM) Routine 12/03/2019 Results for 4:44 PM WOOL GRADER this procedure are in the results section. VITAMIN D, 25-OH Routine 12/03/2019 Results for 4:44 PM WOOL GRADER this procedure are in the results section. C4 COMPLEMENT Routine 12/03/2019 Results for 4:44 PM WOOL GRADER this procedure are in the results section. C3 COMPLEMENT Routine 12/03/2019 Results for 4:44 PM WOOL GRADER this procedure are in the results section. POCT GLUCOSE (AUTOMATED) Routine 12/03/2019 Results for 2:11 PM WOOL GRADER this procedure are in the results section. POCT GLUCOSE (AUTOMATED) Routine 12/03/2019 Results for 11:22 AM WOOL GRADER this procedure are in the results section. LIPID PANEL ([id number])(TOTAL Add-on 12/03/2019 Results for CHOLESTEROL, TRIGLYCERIDES, HDL) 9:18 AM WOOL GRADER this procedure are in the results section. BASIC METABOLIC PANEL (NA, K, Routine 12/03/2019 Results for CL, CO2, GLUCOSE, BUN, 9:18 AM WOOL GRADER this procedure CREATININE, CA) are in the results section. HEPATIC FUNCTION PANEL ([id number]) Add-on 12/03/2019 Results for (ALB,T.PRO,BILI 9:18 AM WOOL GRADER this procedure T,BU/BC,ALT,AST,ALK PHOS) are in the results section. MAGNESIUM Routine 12/03/2019 Results for 9:18 AM WOOL GRADER this procedure are in the results section. POCT GLUCOSE (AUTOMATED) Routine 12/03/2019 Results for 7:44 AM WOOL GRADER this procedure are in the results section. POCT GLUCOSE (AUTOMATED) Routine 12/03/2019 Results for 4:51 AM WOOL GRADER this procedure are in the results section. POCT GLUCOSE (AUTOMATED) Routine 12/03/2019 Results for 2:07 AM WOOL GRADER this procedure are in the results section. MR BRAIN W WO CONTRAST ELIJAH 12/03/2019 Intractable Results for 1:48 AM WOOL GRADER nausea and this procedure vomiting are in the results section. POCT GLUCOSE (AUTOMATED) Routine 12/02/2019 Results for 11:04 PM WOOL GRADER this procedure are in the results section. POCT GLUCOSE (AUTOMATED) Routine 12/02/2019 Results for 7:51 PM WOOL GRADER this procedure are in the results section. POCT GLUCOSE (AUTOMATED) Routine 12/02/2019 Results for 5:22 PM WOOL GRADER this procedure are in the results section. EKG-12 LEAD Routine 12/02/2019 12:24 PM WOOL GRADER EKG-12 LEAD Routine 12/02/2019 12:11 PM WOOL GRADER POCT GLUCOSE (AUTOMATED) Routine 12/02/2019 Results for 11:20 AM WOOL GRADER this procedure are in the results section. POCT GLUCOSE (AUTOMATED) Routine 12/02/2019 Results for 10:01 AM WOOL GRADER this procedure are in the results section. POCT GLUCOSE(AGE >30DAYS) ELIJAH 12/02/2019 Intractable Results for 10:01 AM WOOL GRADER nausea and this procedure vomiting are in the results section. N-TERMINAL PRO-BNP Add-on 12/02/2019 Results for 8:39 AM WOOL GRADER this procedure are in the results section. BASIC METABOLIC PANEL (NA, K, STAT 12/02/2019 Results for CL, CO2, GLUCOSE, BUN, 8:39 AM WOOL GRADER this procedure CREATININE, CA) are in the results section. ACUTE CARE VENOUS BLOOD GAS STAT 12/02/2019 Intractable Results for 6:44 AM WOOL GRADER nausea and this procedure vomiting are in the results section. BASIC METABOLIC PANEL (NA, K, STAT 12/02/2019 Intractable Results for CL, CO2, GLUCOSE, BUN, 6:44 AM WOOL GRADER nausea and this procedure CREATININE, CA) vomiting are in the results section. POCT GLUCOSE (AUTOMATED) Routine 12/02/2019 Results for 6:43 AM WOOL GRADER this procedure are in the results section. BASIC METABOLIC PANEL (NA, K, STAT 12/02/2019 Intractable Results for CL, CO2, GLUCOSE, BUN, 3:57 AM WOOL GRADER nausea and this procedure CREATININE, CA) vomiting are in the results section. TEST, SERUM STAT 12/02/2019 Intractable Results for 3:57 AM WOOL GRADER nausea and this procedure vomiting are in the results section. MAGNESIUM STAT 12/02/2019 Intractable Results for 3:57 AM WOOL GRADER nausea and this procedure vomiting are in the results section. PROTEIN CREAT RATIO URINE RANDOM Add-on 12/02/2019 Results for 3:35 AM WOOL GRADER this procedure are in the results section. URINALYSIS STAT 12/02/2019 Intractable Results for 3:35 AM WOOL GRADER nausea and this procedure vomiting are in the results section. GALV/CLC ONLY - URINE DRUG Add-on 12/02/2019 Results for (IMMUNOASSAY) - COMPREHENSIVE 3:35 AM WOOL GRADER this procedure DRUG SCREEN are in the results section. CBC WITH DIFFERENTIAL STAT 12/02/2019 Intractable Results for 3:24 AM WOOL GRADER nausea and this procedure vomiting are in the results section. CBC WITH DIFFERENTIAL STAT 12/02/2019 Intractable Results for 3:24 AM WOOL GRADER nausea and this procedure vomiting are in the results section. POCT GLUCOSE (AUTOMATED) Routine 12/02/2019 Results for 2:09 AM WOOL GRADER this procedure are in the results section. documented in this encounter Results POCT GLUCOSE (AUTOMATED) (12/12/2019 12:56 PM WOOL GRADER) POCT GLU 277 (H) 70 - 110 mg/dL [facility] Specimen Blood Performing Organization Address City/State/Zipcode Phone Number [facility] CLIA: [id number], [address] [place] [address] [facility] POCT GLUCOSE (AUTOMATED) (12/12/2019 10:26 AM WOOL GRADER) POCT GLU 256 (H) 70 - 110 mg/dL [facility] Specimen Blood Performing Organization Address City/State/Zipcode Phone Number [facility] CLIA: [id number], [address] [place] [address] [phone] [place] PHOSPHORUS (12/12/2019 5:55 AM WOOL GRADER) PHOSPHORUS 3.2 2.5 - 5.0 mg/dL [facility] Specimen Blood - ARM, RIGHT Performing Organization Address City/State/Zipcode Phone Number [facility] CLIA: [id number], [address] [place] [address] [phone] [facility] MAGNESIUM (12/12/2019 5:55 AM WOOL GRADER) MAGNESIUM 1.9 1.7 - 2.4 mg/dL [facility] Specimen Blood - ARM, RIGHT Performing Organization Address City/[facility] Phone Number [facility] CLIA: [id number], [address] [place] [address] [facility] BASIC METABOLIC PANEL (NA, K, CL, CO2, GLUCOSE, BUN, CREATININE, CA) (2019 5:55 AM WOOL GRADER) NA 128 (L) 135 - 145 [facility] mmol/L SERVICES K 5.2 (H) 3.5 - 5.0 [facility] mmol/L SERVICES CL 93 (L) 98 - 108 mmol/L [facility] CO2 TOTAL 29 23 - 31 mmol/L [facility] AGAP 6 2 - 16 [facility] BUN 35 (H) 7 - 23 mg/dL [facility] GLUCOSE 221 (H) 70 - 110 mg/dL [facility] CREATININE 2.25 (H) 0.50 - 1.04 [facility] mg/dL SERVICES CALCIUM 8.7 8.6 - 10.6 [facility] mg/dL SERVICES eGFR Calculation 24.3 mL/min/1.73m2 [facility] (Non- SERVICES Faroese) eGFR Calculation 29.5 mL/min/1.73m2 [facility] () SERVICES Specimen Blood - ARM, RIGHT Narrative Performed At [facility] of Glomerular Filtration Rate (GFR) and Staging [facility] of Kidney Disease* + + [...] tests). Performing Organization Address City/State/Zipcode Phone Number [facility] CLIA: [id number], [address] [place] [address] [facility] CBC WITH DIFFERENTIAL (12/12/2019 5:54 AM WOOL GRADER) [facility] Signature WBC 7.67 4.30 - 11.10 [facility] 10*3/L SERVICES RBC 3.16 (L) 3.93 - 5.25 [facility] 10*6/L SERVICES HGB 8.9 (L) 11.6 - 15.0 [facility] g/dL SERVICES HCT 27.6 (L) 35.7 - 45.2 % [facility] MCV 87.3 80.6 - 95.5 fL [facility] MCH 28.2 25.9 - 32.8 pg [facility] MCHC 32.2 31.6 - 35.1 [facility] g/dL SERVICES RDW-SD 40.2 39.0 - 49.9 fL [facility] RDW-CV 12.4 12.0 - 15.5 % [facility] PLT 165 (L) 166 - 358 [facility] 10*3/L SERVICES MPV 11.3 9.5 - 12.9 fL [facility] NRBC/100 WBC 0.0 0.0 - 10.0 /100 [facility] WBC[facility] SERVICES NRBC x10^3 <0.01 10*3/L [facility] GRAN MAT (NEUT) % 77.0 % [facility] IMM GRAN % 0.40 % [facility] LYMPH % 12.4 % [facility] MONO % 7.8 % [facility] EOS % 2.3 % [facility] BASO % 0.1 % [facility] GRAN MAT x10^3(ANC) 5.90 1.88 - 7.09 [facility] 10*3/uL SERVICES IMM GRAN x10^3 0.03 0.00 - 0.06 [facility] 10*3/uL SERVICES LYMPH x10^3 0.95 (L) 1.32 - 3.29 [facility] 10*3/uL SERVICES MONO x10^3 0.60 0.33 - 0.92 [facility] 10*3/uL SERVICES EOS x10^3 0.18 0.03 - 0.39 [facility] 10*3/uL SERVICES BASO x10^3 <0.03 0.01 - 0.07 [facility] 10*3/uL SERVICES Specimen Blood - ARM, RIGHT Performing Organization Address [facility] Phone Number [facility] CLIA: [id number], [address] [place], [place] [address] [phone] [facility] POCT GLUCOSE (AUTOMATED) (12/11/2019 11:32 PM WOOL GRADER) POCT GLU 274 (H) 70 - 110 mg/dL [facility] Specimen Blood Performing Organization Address City/[facility] Phone Number [facility] CLIA: [id number], [address] [place], [place] [address] [phone] [facility] POCT GLUCOSE (AUTOMATED) (12/11/2019 10:46 PM WOOL GRADER) POCT GLU 121 (H) 70 - 110 mg/dL [facility] Specimen Blood Performing Organization Address [facility] Phone Number [facility] CLIA: [id number], [address] [place], [place] [phone] [employer] [place] POCT GLUCOSE (AUTOMATED) (12/11/2019 10:30 PM WOOL GRADER) POCT GLU 51 (L) 70 - 110 mg/dL [facility] Specimen Blood Performing Organization Address [facility] Phone Number [facility] CLIA: [id number], [address] [place] [address] [phone] [employer] [place] POCT GLUCOSE (AUTOMATED) (12/11/2019 10:14 PM WOOL GRADER) POCT GLU 36 (LL) 70 - 110 mg/dL [facility] Specimen Blood Performing Organization Address [facility] Phone Number [facility] CLIA: [id number], [address] [place] [address] [phone] [employer] [place] POCT GLUCOSE (AUTOMATED) (12/11/2019 9:59 PM WOOL GRADER) POCT GLU 40 (LL) 70 - 110 mg/dL [facility] Specimen Blood Performing Organization Address [facility] Phone Number [facility] CLIA: [id number], [address] [place] [address] [phone] [employer] [place] POCT GLUCOSE (AUTOMATED) (12/11/2019 8:29 PM WOOL GRADER) POCT GLU 98Comment: Notified 70 - 110 mg/dL [facility] Specimen Blood Performing Organization Address [facility] Phone Number [facility] CLIA: [id number], [address] [place] [address] [phone] [employer] [place] POCT GLUCOSE (AUTOMATED) (12/11/2019 5:35 PM WOOL GRADER) POCT GLU 191 (H) 70 - 110 mg/dL [facility] Specimen Blood Performing Organization Address [facility] Phone Number [facility] CLIA: [id number], [address] [place] [address] [phone] [employer] [place] POCT GLUCOSE (AUTOMATED) (12/11/2019 12:22 PM WOOL GRADER) POCT GLU 260 (H)Comment: 70 - 110 mg/dL [facility] Notified Provider HOSPITAL Specimen Blood Performing Organization Address City/State/Zipcode Phone Number [facility] CLIA: [id number], [address] [place] [address] [facility] POCT GLUCOSE (AUTOMATED) (12/11/2019 8:21 AM WOOL GRADER) POCT GLU 299 (H)Comment: 70 - 110 mg/dL [facility] Notified Provider HOSPITAL Specimen Blood Performing Organization Address City/[facility]/Zipcode Phone Number [facility] CLIA: [id number], [address] [place] [address] [phone] [facility] CBC WITH DIFFERENTIAL (12/11/2019 4:35 AM WOOL GRADER) WBC 5.90 4.30 - 11.10 [facility] 10*3/L SERVICES RBC 2.71 (L) 3.93 - 5.25 [facility] 10*6/L SERVICES HGB 7.6 (L) 11.6 - 15.0 [facility] g/dL SERVICES HCT 23.4 (L) 35.7 - 45.2 % [facility] MCV 86.3 80.6 - 95.5 fL [facility] MCH 28.0 25.9 - 32.8 pg [facility] MCHC 32.5 31.6 - 35.1 [facility] g/dL SERVICES RDW-SD 39.8 39.0 - 49.9 fL [facility] RDW-CV 12.6 12.0 - 15.5 % [facility] PLT 112 (L) 166 - 358 [facility] 10*3/L SERVICES MPV 11.3 9.5 - 12.9 fL [facility] NRBC/100 WBC 0.0 0.0 - 10.0 /100 [facility] WBCs SERVICES NRBC x10^3 <0.01 10*3/L [facility] GRAN MAT (NEUT) % 69.9 % [facility] IMM GRAN % 0.30 % [facility] LYMPH % 18.8 % [facility] MONO % 8.8 % [facility] EOS % 2.2 % [facility] BASO % 0.0 % [facility] GRAN MAT x10^3(ANC) 4.12 1.88 - 7.09 [facility] 10*3/uL SERVICES IMM GRAN x10^3 <0.03 0.00 - 0.06 [facility] 10*3/uL SERVICES LYMPH x10^3 1.11 (L) 1.32 - 3.29 [facility] 10*3/uL SERVICES MONO x10^3 0.52 0.33 - 0.92 [facility] 10*3/uL SERVICES EOS x10^3 0.13 0.03 - 0.39 [facility] 10*3/uL SERVICES BASO x10^3 <0.03 0.01 - 0.07 [facility] 10*3/uL SERVICES Specimen Blood - HAND, RIGHT Performing Organization Address [facility] Phone Number [facility] CLIA: [id number], [address] [place] [address] [facility] PHOSPHORUS (12/11/2019 4:35 AM WOOL GRADER) PHOSPHORUS 2.7 2.5 - 5.0 mg/dL [facility] Specimen Blood - HAND, RIGHT Performing Organization Address [facility] Phone Number [facility] CLIA: [id number], [address] [place] [address] [facility] MAGNESIUM (12/11/2019 4:35 AM WOOL GRADER) MAGNESIUM 1.9 1.7 - 2.4 mg/dL [facility] Specimen Blood - HAND, RIGHT Performing Organization Address [facility] Phone Number [facility] CLIA: [id number], [address] [place] [address] [facility] BASIC METABOLIC PANEL (NA, K, CL, CO2, GLUCOSE, BUN, CREATININE, CA) (2019 4:35 AM WOOL GRADER) NA 127 (L) 135 - 145 [facility] mmol/L SERVICES K 5.2 (H) 3.5 - 5.0 [facility] mmol/L SERVICES CL 95 (L) 98 - 108 mmol/L [facility] CO2 TOTAL 28 23 - 31 mmol/L [facility] AGAP 4 2 - 16 [facility] BUN 34 (H) 7 - 23 mg/dL [facility] GLUCOSE 189 (H) 70 - 110 mg/dL [facility] CREATININE 2.26 (H) 0.50 - 1.04 [facility] mg/dL SERVICES CALCIUM 8.1 (L) 8.6 - 10.6 [facility] mg/dL SERVICES eGFR Calculation 24.2 mL/min/1.73m2 [facility] (Non- SERVICES Faroese) eGFR Calculation 29.3 mL/min/1.73m2 [facility] () SERVICES Specimen Blood - HAND, RIGHT Narrative Performed At [facility] of Glomerular Filtration Rate (GFR) and Staging [facility] of Kidney Disease* + + [...] abnormalities in imaging tests). Performing Organization Address City/[facility]/Zipcode Phone Number [facility] CLIA: [id number], [address] [place] [address] [facility] POCT GLUCOSE (AUTOMATED) (12/10/2019 8:40 PM WOOL GRADER) [facility] POCT GLU 212 (H) 70 - 110 mg/dL [facility] Specimen Blood Performing Organization Address City/[facility]/Zipcode Phone Number [facility] CLIA: [id number], [address] [place] [phone] [place] POCT GLUCOSE (AUTOMATED) (12/10/2019 6:35 PM WOOL GRADER) POCT GLU 260 (H) 70 - 110 mg/dL [facility] Specimen Blood Performing Organization Address City/[facility] Phone Number [facility] CLIA: [id number], [address] [place] [address] [phone] [facility] POCT GLUCOSE (AUTOMATED) (12/10/2019 5:56 PM WOOL GRADER) POCT GLU 246 (H) 70 - 110 mg/dL [facility] Specimen Blood Performing Organization Address [facility] Phone Number [facility] CLIA: [id number], [address] [place] [address] [facility] POCT GLUCOSE (AUTOMATED) (12/10/2019 12:14 PM WOOL GRADER) POCT GLU 180 (H) 70 - 110 mg/dL [facility] Specimen Blood Performing Organization Address [facility] Phone Number [facility] CLIA: [id number], [address] [place] [phone] [facility] POCT GLUCOSE (AUTOMATED) (12/10/2019 9:12 AM WOOL GRADER) POCT GLU 241 (H) 70 - 110 mg/dL [facility] Specimen Blood Performing Organization Address [facility] Phone Number [facility] CLIA: [id number], [address] [place] [address] [phone] [facility] CBC WITH DIFFERENTIAL (12/10/2019 4:59 AM WOOL GRADER) WBC 7.23 4.30 - 11.10 [facility] 10*3/L SERVICES RBC 2.93 (L) 3.93 - 5.25 [facility] 10*6/L SERVICES HGB 8.3 (L) 11.6 - 15.0 [facility] LABORATORY g/dL SERVICES HCT 25.7 (L) 35.7 - 45.2 % [facility] MCV 87.7 80.6 - 95.5 fL [facility] MCH 28.3 25.9 - 32.8 pg [facility] MCHC 32.3 31.6 - 35.1 [facility] g/dL SERVICES RDW-SD 40.8 39.0 - 49.9 fL [facility] RDW-CV 12.6 12.0 - 15.5 % [facility] PLT 135 (L) 166 - 358 [facility]ORATORY 10*3/L SERVICES MPV 12.3 9.5 - 12.9 fL [facility] NRBC/100 WBC 0.0 0.0 - 10.0 /100 [facility] WBCs SERVICES NRBC x10^3 <0.01 10*3/L [facility] GRAN MAT (NEUT) % 75.9 % [facility] IMM GRAN % 0.30 % [facility] LYMPH % 15.5 % [facility] MONO % 6.8 % [facility] EOS % 1.4 % [facility] BASO % 0.1 % [facility] GRAN MAT x10^3(ANC) 5.49 1.88 - 7.09 [facility] 10*3/uL SERVICES IMM GRAN x10^3 <0.03 0.00 - 0.06 [facility] 10*3/uL SERVICES LYMPH x10^3 1.12 (L) 1.32 - 3.29 [facility] 10*3/uL SERVICES MONO x10^3 0.49 0.33 - 0.92 [facility] 10*3/uL SERVICES EOS x10^3 0.10 0.03 - 0.39 [facility] 10*3/uL SERVICES BASO x10^3 <0.03 0.01 - 0.07 [facility] 10*3/uL SERVICES Specimen Blood - ARM, RIGHT Performing Organization Address City/State/Zipcode Phone Number [facility] CLIA: [id number], [address] [place] [address] [phone] [place] [address] PHOSPHORUS (12/10/2019 4:59 AM WOOL GRADER) PHOSPHORUS 3.0 2.5 - 5.0 mg/dL [facility] Specimen Blood - ARM, RIGHT Performing Organization Address City/[facility]/Zipcode Phone Number [facility] CLIA: [id number], [address] [place] [address] [facility] MAGNESIUM (12/10/2019 4:59 AM WOOL GRADER) MAGNESIUM 1.9 1.7 - 2.4 mg/dL [facility] Specimen Blood - ARM, RIGHT Performing Organization Address City/State/Zipcode Phone Number [facility] CLIA: [id number], [address] [place] [address] [facility] BASIC METABOLIC PANEL (NA, K, CL, CO2, GLUCOSE, BUN, CREATININE, CA) (2019 4:59 AM WOOL GRADER) NA 127 (L) 135 - 145 [facility] mmol/L SERVICES K 5.1 (H) 3.5 - 5.0 [facility] mmol/L SERVICES CL 95 (L) 98 - 108 mmol/L [facility] CO2 TOTAL 28 23 - 31 mmol/L [facility] AGAP 4 2 - 16 [facility] BUN 32 (H) 7 - 23 mg/dL [facility] GLUCOSE 243 (H) 70 - 110 mg/dL [facility] CREATININE 2.26 (H) 0.50 - 1.04 [facility] mg/dL SERVICES CALCIUM 8.1 (L) 8.6 - 10.6 [facility] mg/dL SERVICES eGFR Calculation 24.2 mL/min/1.73m2 [facility] (Non- SERVICES Faroese) eGFR Calculation 29.3 mL/min/1.73m2 [facility] () SERVICES Specimen Blood - ARM, RIGHT Narrative Performed At Association of Glomerular Filtration Rate (GFR) and Staging [facility] of Kidney Disease* + + [...] abnormalities in imaging tests). Performing Organization Address City/[facility] Phone Number [facility] CLIA: [id number], [address] [place] [address] [facility] Cortisol Stimulation 60 Min (post cosyntropin injection) (12/09/2019 9:12 PM WOOL GRADER) VIC 60 17.1 ug/dL [facility] Specimen Blood - ARM, RIGHT Narrative Performed At Normal peak serum cortisol is greater than 20 ug/dL 30-60 [facility] minutes after 25 units of Cosyntropin IV. Biotin has been reported to cause a positive bias, interpret results relative to patient's use of biotin. Performing Organization Address [facility] [place] Phone Number [facility] CLIA: [id number], [address] [place] [address] [phone] [facility] POCT GLUCOSE (AUTOMATED) (12/09/2019 9:03 PM WOOL GRADER) POCT GLU 121 (H) 70 - 110 mg/dL [facility] Specimen Blood Performing Organization Address [facility] [place] Phone Number [facility] CLIA: [id number], [address] [place] [address] [facility] Cortisol Stimulation 30 Min (post cosyntropin injection) (12/09/2019 8:36 PM WOOL GRADER) VIC 30 13.3 ug/dL [facility] Specimen Blood - ARM, RIGHT Narrative Performed At Normal peak serum cortisol is greater than 20 ug/dL 30-60 [facility] minutes after 25 units of Cosyntropin IV. Biotin has been reported to cause a positive bias, interpret results relative to patient's use of biotin. Performing Organization Address [facility] [place] Phone Number [facility] CLIA: [id number], [address] [place] [address] [phone] [facility] Cortisol Stimulation 0 Min (prior to cosyntropin injection) (12/09/2019 7:56 PM WOOL GRADER) VIC 0 4.6 4.5 - 23.0 ug/dL [facility] Specimen Blood - ARM, RIGHT Narrative Performed At [facility] has been reported to cause a positive bias, interpret [facility] results relative to patient's use of biotin. Performing Organization Address City/State/Zipcode Phone Number [facility] CLIA: [id number], [address] [place] [address] [phone] [facility] POCT GLUCOSE (AUTOMATED) (12/09/2019 4:13 PM WOOL GRADER) POCT GLU 253 (H) 70 - 110 mg/dL [facility] Specimen Blood Performing Organization Address City/[facility]/Zipcode Phone Number [facility] CLIA: [id number], [address] [place] [address] [phone] [facility] BASIC METABOLIC PANEL (NA, K, CL, CO2, GLUCOSE, BUN, CREATININE, CA) (2019 1:11 PM WOOL GRADER) NA 128 (L) 135 - 145 [facility] mmol/L SERVICES K 5.1 (H) 3.5 - 5.0 [facility] mmol/L SERVICES CL 96 (L) 98 - 108 mmol/L [facility] CO2 TOTAL 25 23 - 31 mmol/L [facility] AGAP 7 2 - 16 [facility] BUN 27 (H) 7 - 23 mg/dL [facility] GLUCOSE 284 (H) 70 - 110 mg/dL [facility] CREATININE 2.37 (H) 0.50 - 1.04 [facility] mg/dL SERVICES CALCIUM 8.1 (L) 8.6 - 10.6 [facility] mg/dL SERVICES eGFR Calculation 22.9 mL/min/1.73m2 [facility] (Non- SERVICES Faroese) eGFR Calculation 27.8 mL/min/1.73m2 [facility] () SERVICES Specimen Blood - HAND, RIGHT Narrative Performed At Association of Glomerular Filtration Rate (GFR) and Staging [facility] of Kidney Disease* + + [...] abnormalities in imaging tests). Performing Organization Address [facility] Phone Number [facility] CLIA: [id number], [address] [place] [address] [facility] OSMOLALITY SERUM (12/09/2019 1:11 PM WOOL GRADER) OSMOLALITY 297 278 - 305 mOsm/kg [facility] Specimen Blood - HAND, RIGHT Performing Organization Address [facility] [place] Phone Number [facility] CLIA: [id number], [address] [place] [address] [phone] [facility] OSMOLALITY URINE (12/09/2019 1:01 PM WOOL GRADER) OSMO U 332 50-1,100 mOsm/kg [facility] Specimen Urine - URINE, CLEAN CATCH Performing Organization Address [facility] [place] Phone Number [facility] CLIA: [id number], [address] [place] [address] [phone] [facility] POCT GLUCOSE (AUTOMATED) (12/09/2019 12:12 PM WOOL GRADER) POCT GLU 281 (H)Comment: 70 - 110 mg/dL [facility] Specimen Blood Performing Organization Address [facility] Phone Number [facility] CLIA: [id number], [address] [place] [address] [facility] POCT GLUCOSE (AUTOMATED) (12/09/2019 8:50 AM WOOL GRADER) POCT GLU 272 (H) 70 - 110 mg/dL [facility] Specimen Blood Performing Organization Address City/State/Zipcode Phone Number [facility] CLIA: [id number], [address] [place] [address] [place] CORTISOL AM (12/09/2019 4:51 AM WOOL GRADER) VIC AM 3.6 (L) 4.5 - 23.0 ug/dL [facility] Specimen Blood - HAND, RIGHT Narrative Performed At Biotin has been reported to cause a positive bias, interpret [facility] results relative to patient's use of biotin. Performing Organization Address City/State/Zipcode Phone Number [facility] CLIA: [id number], [address] [place] [address] [facility] CBC WITH DIFFERENTIAL (12/09/2019 4:51 AM WOOL GRADER) WBC 7.73 4.30 - 11.10 [facility] 10*3/L SERVICES RBC 2.95 (L) 3.93 - 5.25 [facility] 10*6/L SERVICES HGB 8.2 (L) 11.6 - 15.0 [facility] g/dL SERVICES HCT 25.6 (L) 35.7 - 45.2 % [facility] MCV 86.8 80.6 - 95.5 fL [facility] MCH 27.8 25.9 - 32.8 pg [facility] MCHC 32.0 31.6 - 35.1 [facility] g/dL SERVICES RDW-SD 40.2 39.0 - 49.9 fL [facility] RDW-CV 12.6 12.0 - 15.5 % [facility] PLT 139 (L) 166 - 358 [facility] 10*3/L SERVICES MPV 11.6 9.5 - 12.9 fL [facility] NRBC/100 WBC 0.0 0.0 - 10.0 /100 [facility] WBCs SERVICES NRBC x10^3 <0.01 10*3/L [facility] GRAN MAT (NEUT) % 72.7 % [facility] IMM GRAN % 0.50 % [facility] LYMPH % 17.9 % [facility] MONO % 5.8 % [facility] EOS % 3.0 % [facility] BASO % 0.1 % [facility] GRAN MAT x10^3(ANC) 5.62 1.88 - 7.09 [facility] 10*3/uL SERVICES IMM GRAN x10^3 0.04 0.00 - 0.06 [facility] 10*3/uL SERVICES LYMPH x10^3 1.38 1.32 - 3.29 [facility] 10*3/uL SERVICES MONO x10^3 0.45 0.33 - 0.92 [facility] 10*3/uL SERVICES EOS x10^3 0.23 0.03 - 0.39 [facility] 10*3/uL SERVICES BASO x10^3 <0.03 0.01 - 0.07 [facility] 10*3/uL SERVICES Specimen Blood - HAND, RIGHT Performing Organization Address City/[facility] Phone Number [facility] CLIA: [id number], [address] [place] [address] [facility] PHOSPHORUS (12/09/2019 4:51 AM WOOL GRADER) PHOSPHORUS 3.6 2.5 - 5.0 mg/dL [facility] Specimen Blood - HAND, RIGHT Performing Organization Address City/[facility] Phone Number [facility] CLIA: [id number], [address] [place] [address] [phone] [facility] MAGNESIUM (12/09/2019 4:51 AM WOOL GRADER) MAGNESIUM 2.2 1.7 - 2.4 mg/dL [facility] Specimen Blood - HAND, RIGHT Performing Organization Address [facility] Phone Number [facility] CLIA: [id number], [address] [place] [address] [facility] BASIC METABOLIC PANEL (NA, K, CL, CO2, GLUCOSE, BUN, CREATININE, CA) (2019 4:51 AM WOOL GRADER) NA 127 (L) 135 - 145 [facility] mmol/L SERVICES K 4.8 3.5 - 5.0 [facility] mmol/L SERVICES CL 97 (L) 98 - 108 mmol/L [facility] CO2 TOTAL 25 23 - 31 mmol/L [facility] AGAP 5 2 - 16 [facility] BUN 29 (H) 7 - 23 mg/dL [facility] SERVICES GLUCOSE 171 (H) 70 - 110 mg/dL [facility] CREATININE 2.21 (H) 0.50 - 1.04 [facility] mg/dL SERVICES CALCIUM 7.8 (L) 8.6 - 10.6 [facility] mg/dL SERVICES eGFR Calculation 24.8 mL/min/1.73m2 [facility] (Non- SERVICES Faroese) eGFR Calculation 30.1 mL/min/1.73m2 [facility] () SERVICES Specimen Blood - HAND, RIGHT Narrative Performed At Association of Glomerular Filtration Rate (GFR) and Staging [facility] of Kidney Disease* + + [...] abnormalities in imaging tests). Performing Organization Address City/[facility]/Zipcode Phone Number [facility] CLIA: [id number], [address] [place] [address] [facility] POCT GLUCOSE (AUTOMATED) (12/08/2019 8:56 PM WOOL GRADER) [facility] POCT GLU 133 (H)Comment: 70 - 110 mg/dL [facility] Notified Provider HOSPITAL Specimen Blood Performing Organization Address City/[facility]/Zipcode Phone Number [facility] CLIA: [id number], [address] [place] [address] [phone] [facility] POCT GLUCOSE (AUTOMATED) (12/08/2019 5:49 PM WOOL GRADER) POCT GLU 168 (H) 70 - 110 mg/dL [facility] Specimen Blood Performing Organization Address City/[facility] Phone Number [facility] CLIA: [id number], [address] [place] [address] [facility] POCT GLUCOSE (AUTOMATED) (12/08/2019 12:58 PM WOOL GRADER) POCT GLU 140 (H) 70 - 110 mg/dL [facility] Specimen Blood Performing Organization Address City/[facility] Phone Number [facility] CLIA: [id number], [address] [place] [address] [facility] XR CHEST 2 VW (12/08/2019 12:19 PM WOOL GRADER) Specimen Impressions Performed At PACS/VR/DOSE Small bilateral pleural effusion, left greater than right with adjacent atelectasis. Narrative Performed At PROCEDURE: XR CHEST 2 VW PACS/VR/DOSE CLINICAL INDICATION: assess volume status; presence of pleural effusion; comparison with last 1V; please also get decubitus view COMPARISON: 12/06/2019 FINDINGS: The heart is normal in size. Small bilateral pleural effusion is present, left greater than right. Left basilar atelectasis adjacent to pleural effusion, partially obscuring left hemidiaphragm. Otherwise lungs are clear. No acute bony abnormality. Surgical clips in the right upper abdomen reflecting prior cholecystectomy. Procedure Note [facility], Radiant Results Inft User - 12/08/2019 1:19 PM WOOL GRADER PROCEDURE: XR CHEST 2 VW CLINICAL INDICATION: assess volume status; presence of pleural effusion; comparison with last 1V; please also get decubitus view COMPARISON: 12/06/2019 FINDINGS: The heart is normal in size. Small bilateral pleural effusion is present, left greater than right. Left basilar atelectasis adjacent to pleural effusion, partially obscuring left hemidiaphragm. Otherwise lungs are clear. No acute bony abnormality. Surgical clips in the right upper abdomen reflecting prior cholecystectomy. IMPRESSION Small bilateral pleural effusion, left greater than right with adjacent atelectasis. Performing Organization Address City/[facility]/Zipcode Phone Number PACS/VR/DOSE POCT GLUCOSE (AUTOMATED) (12/08/2019 7:32 AM WOOL GRADER) POCT GLU 136 (H)Comment: 70 - 110 mg/dL [facility] Not[facility] Provider [facility]OS[facility] Specimen Blood Performing Organization Address City/State/Zipcode Phone Number [facility] CLIA: [id number], [address] [place] [address] [phone] [facility] CBC WITH DIFFERENTIAL (12/08/2019 4:17 AM WOOL GRADER) WBC 6.84 4.30 - 11.10 [facility] 10*3/L SERVICES RBC 3.16 (L) 3.93 - 5.25 [facility] 10*6/L SERVICES HGB 8.9 (L) 11.6 - 15.0 [facility] g/dL SERVICES HCT 27.3 (L) 35.7 - 45.2 % [facility] MCV 86.4 80.6 - 95.5 fL [facility] MCH 28.2 25.9 - 32.8 pg [facility] MCHC 32.6 31.6 - 35.1 [facility] g/dL SERVICES RDW-SD 39.9 39.0 - 49.9 fL [facility] RDW-CV 12.5 12.0 - 15.5 % [facility] PLT 144 (L) 166 - 358 [facility] 10*3/L SERVICES MPV 11.5 9.5 - 12.9 fL [facility] NRBC/100 WBC 0.0 0.0 - 10.0 /100 [facility] WBCs SERVICES NRBC x10^3 <0.01 10*3/L [facility] GRAN MAT (NEUT) % 71.4 % [facility] IMM GRAN % 0.30 % [facility] LYMPH % 18.1 % [facility] MONO % 7.6 % [facility] EOS % 2.6 % [facility] BASO % 0.0 % [facility] GRAN MAT x10^3(ANC) 4.88 1.88 - 7.09 [facility] 10*3/uL SERVICES IMM GRAN x10^3 <0.03 0.00 - 0.06 [facility] 10*3/uL SERVICES LYMPH x10^3 1.24 (L) 1.32 - 3.29 [facility] 10*3/uL SERVICES MONO x10^3 0.52 0.33 - 0.92 [facility] 10*3/uL SERVICES EOS x10^3 0.18 0.03 - 0.39 [facility] 10*3/uL SERVICES BASO x10^3 <0.03 0.01 - 0.07 [facility] 10*3/uL SERVICES Specimen Blood - ARM, RIGHT Performing Organization Address City/[facility]/Zipcode Phone Number [facility] CLIA: [id number], [address] [place] [address] [facility] PHOSPHORUS (12/08/2019 4:17 AM WOOL GRADER) PHOSPHORUS 3.6 2.5 - 5.0 mg/dL [facility] Specimen Blood - ARM, RIGHT Performing Organization Address [facility] Phone Number [facility] CLIA: [id number], [address] [place] [address] [phone] [facility] MAGNESIUM (12/08/2019 4:17 AM WOOL GRADER) MAGNESIUM 2.5 (H) 1.7 - 2.4 mg/dL [facility] Specimen Blood - ARM, RIGHT Performing Organization Address [facility] Phone Number [facility] CLIA: [id number], [address] [place] [address] [facility] BASIC METABOLIC PANEL (NA, K, CL, CO2, GLUCOSE, BUN, CREATININE, CA) (2019 4:17 AM WOOL GRADER) NA 128 (L) 135 - 145 [facility] mmol/L SERVICES K 4.0 3.5 - 5.0 [facility] mmol/L SERVICES CL 97 (L) 98 - 108 mmol/L [facility] CO2 TOTAL 25 23 - 31 mmol/L [facility] AGAP 6 2 - 16 [facility] BUN 24 (H) 7 - 23 mg/dL [facility] GLUCOSE 109 70 - 110 mg/dL [facility] CREATININE 2.29 (H) 0.50 - 1.04 [facility] mg/dL SERVICES CALCIUM 7.8 (L) 8.6 - 10.6 [facility] mg/dL SERVICES eGFR Calculation 23.9 mL/min/1.73m2 [facility] (Non- SERVICES Faroese) eGFR Calculation 28.9 mL/min/1.73m2 [facility] () SERVICES Specimen Blood - ARM, RIGHT Narrative Performed At Association of Glomerular Filtration Rate (GFR) and Staging [facility] of Kidney Disease* + + [...] abnormalities in imaging tests). Performing Organization Address [facility] Phone Number [facility] CLIA: [id number], [address] [place] [address] [facility] POCT GLUCOSE (AUTOMATED) (12/07/2019 11:06 PM WOOL GRADER) POCT GLU 92 70 - 110 mg/dL [facility] Specimen Blood Performing Organization Address [facility] Phone Number [facility] CLIA: [id number], [address] [place] [address] [phone] [facility] POCT GLUCOSE (AUTOMATED) (12/07/2019 7:53 PM WOOL GRADER) POCT GLU 124 (H) 70 - 110 mg/dL [facility] Specimen Blood Performing Organization Address [facility] Phone Number [facility] CLIA: [id number], [address] [place], [place] [address] [phone] [facility] POCT GLUCOSE (AUTOMATED) (12/07/2019 3:36 PM WOOL GRADER) POCT GLU 189 (H) 70 - 110 mg/dL [facility] Specimen Blood Performing Organization Address City/State/Zipcode Phone Number [facility] CLIA: [id number], [address] [place] [address] [facility] POCT GLUCOSE (AUTOMATED) (12/07/2019 12:22 PM WOOL GRADER) POCT GLU 75 70 - 110 mg/dL [facility] Specimen Blood Performing Organization Address City/[facility]/Zipcode Phone Number [facility] CLIA: [id number], [address] [place] [address] [facility] QUANTIFERON-TB ASSAY (12/07/2019 10:42 AM WOOL GRADER) Nil 0.049 IU/mL [facility] TB1 minus Nil -0.011 IU/mL [facility] TB2 minus Nil -0.008 IU/mL [facility] Mitogen minus Nil >10.000 IU/mL [facility] QFT Gold Plus Result Negative Negative [facility] Specimen Blood - HAND, LEFT Narrative Performed At Test results are calculated in accordance with an [facility] FDA-approved algorithm run on QuantiFERON(R) software. The QuantiFERON(R) TB Gold Plus (in Tube) assay is intended for use as an aid in diagnosis of TB infection. Negative results suggest that there is not TB infection. In patients with high suspicion of exposure, a negative test should be repeated. A positive test indicates infection with Mycobacterium tuberculosis. Among individuals without tuberculosis infection, a positive test may be due to exposure to M. kansasii, M. szulgai, or M. marinum. As with any screening test, positive results must be interpreted with caution and in context with associated risk factors. Diagnosing or excluding tuberculosis disease and assessing the probability of latent TB infection requires a combination of epidemiological, historical, medical and diagnostic findings that should be taken into account when interpreting QuantiFERON(R) TB results. For further information, refer to http://www.cdc.gov/mmwr/pdf/rr/gc2544.pdf |Nil | TB1 minus | TB2 minus | Mitogen minus | Result | Interpretation |(IU/mL) | Nil(IU/mL)| Nil(IU/ml)| Nil(IU/mL) | | +--------+ + + +--------+- | | >=0.35 | | | | | <=8.0 | and >=25% | Any | Any | Pos | | of Nil | of Nil | | | | +--------+ + + +--------+ M.tuberculosis | | Any | >=0.35 | | | infection likely | <=8.0 | | and >=25% | Any | Pos | | | | of Nil | | | +--------+ + + +--------+- | | <0.35 | <0.35 | | | | <=8.0 | or >=0.35 | or >=0.35 | >=0.50 | Neg | M.tuberculosis | | and <25% | and <25% | | | infection NOT | | of Nil | of Nil | | | likely +--------+ + + +--------+- | | <0.35 | <0.35 | | | | <=8.0 | or >=0.35 | or >=0.35 | <0.50 | | | | and <25% | and <25% | | | Likelihood of | | of Nil | of Nil | | | M.tuberculosis +--------+ | IND* | infection cannot | | | | be determined. | >8.0 | Any | | + *Indeterminate Performing Organization Address City/[facility] Phone Number [facility] CLIA: [id number], [address] [place] [address] [phone] [facility] POCT GLUCOSE (AUTOMATED) (12/07/2019 8:01 AM WOOL GRADER) POCT GLU 115 (H) 70 - 110 mg/dL [facility] Specimen Blood Performing Organization Address [facility] Phone Number [facility] CLIA: [id number], [address] [place] [address] [facility] POCT GLUCOSE (AUTOMATED) (12/07/2019 4:53 AM WOOL GRADER) POCT GLU 118 (H) 70 - 110 mg/dL [facility] Specimen Blood Performing Organization Address [facility] Phone Number [facility] CLIA: [id number], [address] [place] [address] [facility] CBC WITH DIFFERENTIAL (12/07/2019 4:41 AM WOOL GRADER) WBC 7.59 4.30 - 11.10 [facility] 10*3/L SERVICES RBC 2.98 (L) 3.93 - 5.25 [facility] 10*6/L SERVICES HGB 8.6 (L) 11.6 - 15.0 [facility] g/dL SERVICES HCT 25.9 (L) 35.7 - 45.2 % [facility] MCV 86.9 80.6 - 95.5 fL [facility] MCH 28.9 25.9 - 32.8 pg [facility] MCHC 33.2 31.6 - 35.1 [facility] g/dL SERVICES RDW-SD 39.7 39.0 - 49.9 fL [facility] RDW-CV 12.4 12.0 - 15.5 % [facility] PLT 160 (L) 166 - 358 [facility] 10*3/L SERVICES MPV 11.3 9.5 - 12.9 fL [facility] NRBC/100 WBC 0.0 0.0 - 10.0 /100 [facility] WBCs SERVICES NRBC x10^3 <0.01 10*3/L [facility] GRAN MAT (NEUT) % 78.3 % [facility] IMM GRAN % 0.40 % [facility] LYMPH % 13.7 % [facility] MONO % 7.2 % [facility] EOS % 0.4 % [facility] BASO % 0.0 % [facility] GRAN MAT x10^3(ANC) 5.94 1.88 - 7.09 [facility] 10*3/uL SERVICES IMM GRAN x10^3 0.03 0.00 - 0.06 [facility] 10*3/uL SERVICES LYMPH x10^3 1.04 (L) 1.32 - 3.29 [facility] 10*3/uL SERVICES MONO x10^3 0.55 0.33 - 0.92 [facility] 10*3/uL SERVICES EOS x10^3 0.03 0.03 - 0.39 [facility] 10*3/uL SERVICES BASO x10^3 <0.03 0.01 - 0.07 [facility] 10*3/uL SERVICES Specimen Blood - ARM, LEFT Performing Organization Address City/State/Zipcode Phone Number [facility] CLIA: [id number], [address] [place] [address] [phone] [facility] PHOSPHORUS (12/07/2019 4:41 AM WOOL GRADER) PHOSPHORUS 3.8 2.5 - 5.0 mg/dL [facility] Specimen Blood - ARM, LEFT Performing Organization Address City/[facility]/Zipcode Phone Number [facility] CLIA: [id number], [address] [place] [address] [phone] [facility] MAGNESIUM (12/07/2019 4:41 AM WOOL GRADER) MAGNESIUM 1.5 (L) 1.7 - 2.4 mg/dL [facility] Specimen Blood - ARM, LEFT Performing Organization Address [facility]/State/Zipcode Phone Number [facility] CLIA: [id number], [address] [place] [address] [facility] BASIC METABOLIC PANEL (NA, K, CL, CO2, GLUCOSE, BUN, CREATININE, CA) (2019 4:41 AM WOOL GRADER) NA 130 (L) 135 - 145 [facility] mmol/L SERVICES K 3.5 3.5 - 5.0 [facility] mmol/L SERVICES CL 100 98 - 108 mmol/L [facility] CO2 TOTAL 26 23 - 31 mmol/L [facility] AGAP 4 2 - 16 [facility] BUN 26 (H) 7 - 23 mg/dL [facility] GLUCOSE 120 (H) 70 - 110 mg/dL [facility] CREATININE 2.37 (H) 0.50 - 1.04 [facility] mg/dL SERVICES CALCIUM 7.9 (L) 8.6 - 10.6 [facility] mg/dL SERVICES eGFR Calculation 22.9 mL/min/1.73m2 [facility] (Non- SERVICES Faroese) eGFR Calculation 27.8 mL/min/1.73m2 [facility] () SERVICES Specimen Blood - ARM, LEFT Narrative Performed At Association of Glomerular Filtration Rate (GFR) and Staging [facility] of Kidney Disease* + + [...] abnormalities in imaging tests). Performing Organization Address City/[facility]/Zipcode Phone Number [facility] CLIA: [id number], [address] [place] [address] [phone] [facility] POCT GLUCOSE (AUTOMATED) (12/07/2019 1:54 AM WOOL GRADER) POCT GLU 76 70 - 110 mg/dL [facility] Specimen Blood Performing Organization Address [facility] Phone Number [facility] CLIA: [id number], [address] [place] [address] [facility] POCT GLUCOSE (AUTOMATED) (12/06/2019 11:15 PM WOOL GRADER) POCT GLU 110 70 - 110 mg/dL [facility] Specimen Blood Performing Organization Address [facility] Phone Number [facility] CLIA: [id number], [address] [place] [address] [facility] POCT GLUCOSE (AUTOMATED) (12/06/2019 8:43 PM WOOL GRADER) POCT GLU 153 (H) 70 - 110 mg/dL [facility] Specimen Blood Performing Organization Address [facility] Phone Number [facility] CLIA: [id number], [address] [place] [address] [facility] POCT GLUCOSE (AUTOMATED) (12/06/2019 5:06 PM WOOL GRADER) POCT GLU 187 (H)Comment: 70 - 110 mg/dL [facility] Notified Provider HOSPITAL Specimen Blood Performing Organization Address [facility]/Zipcode Phone Number [facility] CLIA: [id number], [address] [place] [address] [facility] POCT GLUCOSE (AUTOMATED) (12/06/2019 2:41 PM WOOL GRADER) POCT GLU 228 (H) 70 - 110 mg/dL [facility] Specimen Blood Performing Organization Address City/[facility] Phone Number [facility] CLIA: [id number], [address] [place] [address] [facility] XR CHEST 1 VW (12/06/2019 12:10 PM WOOL GRADER) Specimen Impressions Performed At Impression: PACS/VR/DOSE Prominent cardiac silhouette with mild perihilar vascular congestion. Narrative Performed At Exam: XR CHEST 1 VW PACS/VR/DOSE Clinical History: assess volume status Comparison: November 07, 2019 Findings: Cardiac silhouette is prominent and there is mild perihilar vascular congestion. No evidence of an acute infiltrate, pleural effusion, or pneumothorax. The regional bones are within normal limits. The visualized upper abdomen is unremarkable. Procedure Note [facility], Radiant Results Inft User - 12/06/2019 4:05 PM WOOL GRADER Exam: XR CHEST 1 VW Clinical History: assess volume status Comparison: November 07, 2019 Findings: Cardiac silhouette is prominent and there is mild perihilar vascular congestion. No evidence of an acute infiltrate, pleural effusion, or pneumothorax. The regional bones are within normal limits. The visualized upper abdomen is unremarkable. IMPRESSION Impression: Prominent cardiac silhouette with mild perihilar vascular congestion. Performing Organization Address [facility]/Zipcode Phone Number PACS/VR/DOSE POCT GLUCOSE (AUTOMATED) (12/06/2019 11:32 AM WOOL GRADER) POCT GLU 218 (H) 70 - 110 mg/dL [facility] Specimen Blood Performing Organization Address [facility]/Zipcode Phone Number [facility] CLIA: [id number], [address] [place] [address] [facility] POCT GLUCOSE (AUTOMATED) (12/06/2019 8:09 AM WOOL GRADER) POCT GLU 254 (H) 70 - 110 mg/dL [facility] Specimen Blood Performing Organization Address City/[facility] Phone Number [facility] CLIA: [id number], [address] [place] [address] [facility] POCT GLUCOSE (AUTOMATED) (12/06/2019 5:02 AM WOOL GRADER) POCT GLU 262 (H)Comment: 70 - 110 mg/dL [facility] Notified Provider HOSPITAL Specimen Blood Performing Organization Address [facility] Phone Number [facility] CLIA: [id number], [address] [place] [address] [phone] [facility] POCT GLUCOSE (AUTOMATED) (12/06/2019 3:56 AM WOOL GRADER) POCT GLU 254 (H)Comment: 70 - 110 mg/dL [facility] Notified Provider HOSPITAL Specimen Blood Performing Organization Address [facility] Phone Number [facility] CLIA: [id number], [address] [place] [address] [facility] HEPATIC FUNCTION PANEL (02606) (ALB,T.PRO,BILI T,BU/BC,ALT,AST,ALK PHOS) (2019 3:41 AM WOOL GRADER) TOTAL BILI 0.3 0.1 - 1.1 mg/dL [facility] BILI UNCON 0.2 0.1 - 1.1 mg/dL [facility] BILI CONJ 0.0 0.0 - 0.3 mg/dL [facility] T PROTEIN 5.3 (L) 6.3 - 8.2 g/dL [facility] ALBUMIN 3.0 (L) 3.5 - 5.0 g/dL [facility] ALK PHOS 50 34 - 122 U/L [facility] ALTv 14 5 - 35 U/L [facility] AST(SGOT) 15 13 - 40 U/L [facility] Specimen Blood - ARM, RIGHT Performing Organization Address City/[facility] Phone Number [facility] CLIA: [id number], [address] [place] [address] 9[address] [facility] PHOSPHORUS (12/06/2019 3:41 AM WOOL GRADER) PHOSPHORUS 5.3 (H) 2.5 - 5.0 mg/dL [facility] Specimen Blood - ARM, RIGHT Performing Organization Address City/State/Zipcode Phone Number [facility] CLIA: [id number], [address] [place] [address] [phone] [facility] MAGNESIUM (12/06/2019 3:41 AM WOOL GRADER) MAGNESIUM 1.7 1.7 - 2.4 mg/dL [facility] Specimen Blood - ARM, RIGHT Performing Organization Address City/[facility] Phone Number [facility] CLIA: [id number], [address] [place] [address] 64[address] [facility] BASIC METABOLIC PANEL (NA, K, CL, CO2, GLUCOSE, BUN, CREATININE, CA) (2019 3:41 AM WOOL GRADER) NA 131 (L) 135 - 145 [facility] mmol/L SERVICES K 3.2 (L) 3.5 - 5.0 [facility] mmol/L SERVICES CL 97 (L) 98 - 108 mmol/L [facility] CO2 TOTAL 26 23 - 31 mmol/L [facility] AGAP 8 2 - 16 [facility] BUN 27 (H) 7 - 23 mg/dL [facility] GLUCOSE 256 (H) 70 - 110 mg/dL [facility] CREATININE 2.54 (H) 0.50 - 1.04 [facility] mg/dL SERVICES CALCIUM 8.4 (L) 8.6 - 10.6 [facility] mg/dL SERVICES eGFR Calculation 21.2 mL/min/1.73m2 [facility] (Non- SERVICES Faroese) eGFR Calculation 25.6 mL/min/1.73m2 [facility] () SERVICES Specimen Blood - ARM, RIGHT Narrative Performed At Association of Glomerular Filtration Rate (GFR) and Staging [facility] of Kidney Disease* + + [...] abnormalities in imaging tests). Performing Organization Address City/[facility] Phone Number [facility] CLIA: [id number], [address] [place] [address] [id number] [phone] [facility] POCT GLUCOSE (AUTOMATED) (12/06/2019 2:01 AM WOOL GRADER) POCT GLU 261 (H) 70 - 110 mg/dL [facility] Specimen Blood Performing Organization Address [facility] Phone Number [facility] CLIA: [id number], [address] [place] [address] [phone] [place] POCT GLUCOSE (AUTOMATED) (12/05/2019 7:33 PM WOOL GRADER) POCT GLU 338 (H) 70 - 110 mg/dL [facility] Specimen Blood Performing Organization Address [facility] Phone Number [facility] CLIA: [id number], [address] [place] [address] 534563 [phone] [facility] POCT GLUCOSE (AUTOMATED) (12/05/2019 6:08 PM WOOL GRADER) POCT GLU 272 (H)Comment: 70 - 110 mg/dL [facility] Specimen Blood Performing Organization Address [facility] Phone Number [facility] CLIA: [id number], [address] [place] [address] 227586 [phone] [place] POCT GLUCOSE (AUTOMATED) (12/05/2019 3:17 PM WOOL GRADER) [facility] POCT GLU 249 (H)Comment: 70 - 110 mg/dL [facility] Notified Provider HOSPITAL Specimen Blood Performing Organization Address City/[facility] Phone Number [facility] CLIA: [id number], [address] [place] [address] [facility] POCT GLUCOSE (AUTOMATED) (12/05/2019 12:04 PM WOOL GRADER) [facility] POCT GLU 292 (H)Comment: 70 - 110 mg/dL [facility] Notified Provider [facility] Specimen Blood Performing Organization Address City/[facility] Phone Number [facility] CLIA: [id number], [address] [place] [address] [phone] [facility] POCT GLUCOSE (AUTOMATED) (12/05/2019 8:45 AM WOOL GRADER) [facility] POCT GLU 271 (H)Comment: 70 - 110 mg/dL [facility] Notified Provider [facility] Specimen Blood Performing Organization Address City/[facility] Phone Number [facility] CLIA: [id number], [address] [place] [address] [phone] [facility] THYROID STIMULATING HORMONE (12/05/2019 4:47 AM WOOL GRADER) [facility] TSH 0.89Comment: Biotin 0.45 - 4.70 [facility] has been reported mIU/L SERVICES to cause a negative bias, interpret results relative to patient's use of biotin. Specimen Blood - LINE, VENOUS Performing Organization Address City/[facility]/Zipcode Phone Number [facility] CLIA: [id number], [address] [place] [address] [phone] [facility] MAGNESIUM (12/05/2019 4:47 AM WOOL GRADER) [facility] MAGNESIUM 1.9 1.7 - 2.4 mg/dL [facility] Specimen Blood - LINE, VENOUS Performing Organization Address City/[facility]/Zipcode Phone Number [facility] CLIA: [id number], [address] [place] [address] [phone] [facility] BASIC METABOLIC PANEL (NA, K, CL, CO2, GLUCOSE, BUN, CREATININE, CA) (2019 4:47 AM WOOL GRADER) NA 137 135 - 145 [facility] mmol/L SERVICES K 3.6Comment: 3.5 - 5.0 [facility] Slight hemolysis mmol/L SERVICES CL 101 98 - 108 [facility] mmol/L SERVICES CO2 TOTAL 21 (L) 23 - 31 [facility] mmol/L SERVICES AGAP 15 2 - 16 [facility] SERVICES BUN 28 (H)Comment: 7 - 23 mg/dL [facility] Slight hemolysis SERVICES GLUCOSE 231 (H) 70 - 110 [facility] mg/dL SERVICES CREATININE 2.57 (H) 0.50 - 1.04 [facility] mg/dL SERVICES CALCIUM 9.1 8.6 - 10.6 [facility] mg/dL SERVICES eGFR Calculation 20.9 mL/min/1.73m2 [facility] (Non- SERVICES Faroese) eGFR Calculation 25.3 mL/min/1.73m2 [facility] () SERVICES Specimen Blood - LINE, VENOUS Narrative Performed At Association of Glomerular Filtration Rate (GFR) and Staging [facility] of Kidney Disease* + + [...] tests). Performing Organization Address City/State/Zipcode Phone Number [facility] CLIA: [id number], [address] [place] [address] [facility] POCT GLUCOSE (AUTOMATED) (12/05/2019 4:22 AM WOOL GRADER) POCT GLU 224 (H) 70 - 110 mg/dL [facility] Specimen Blood Performing Organization Address City/[facility]/Zipcode Phone Number [facility] CLIA: [id number], [address] [place] [address] [facility] POCT GLUCOSE (AUTOMATED) (12/05/2019 12:46 AM WOOL GRADER) POCT GLU 271 (H) 70 - 110 mg/dL [facility] Specimen Blood Performing Organization Address [facility]/Zipcode Phone Number [facility] CLIA: [id number], [address] [place] [address] [facility] POCT GLUCOSE (AUTOMATED) (12/04/2019 4:20 PM WOOL GRADER) POCT GLU 212 (H) 70 - 110 mg/dL [facility] Specimen Blood Performing Organization Address [facility] Phone Number [facility] CLIA: [id number], [address] [place] [address] [facility] SURGICAL PATHOLOGY EXAM (12/04/2019 2:48 PM WOOL GRADER) Case Report Surgical Pathology Case: [id number] [facility] Authorizing Provider: Vernon Soliman MD Collected: 12/04/2019 1448 SERVICES Ordering Location: GI Endoscopy OR Department Received: 12/04/2019 1649 Pathologist: Kirsty Russell MD Specimen: STOMACH, Gastric bx Final Diagnosis [facility] Electronically signed A. STOMACH, BIOPSY: SERVICES by Kirsty Russell MD on - GASTRIC MUCOSA WITH CHRONIC GASTRITIS 12/08/2019 at 2:42 PM - NO ACTIVITY OR INTESTINAL METAPLASIA IDENTIFIED - NO H. PYLORI ORGANISMS IDENTIFIED BY IMMUNOSTAIN I have personally reviewed all specimens/slides and agree with all statements made by residents, fellows or pathologist assistants whose name(s) may appear on this report. Final Diagnosis Immunostain for H.Pylori performed on the block A1 is negative. [facility] Comment SERVICES All controls show appropriate reactivity Clinical Vomiting [facility] Information Jar# 1 gastric biopsy eval for H Pylori SERVICES Gross Description Specimen A is received in formalin labelled with the patient s name, [facility] number "gastric BX and consists of 3 murdock-pink irregular soft tissue fragments (0.3 x 0.2 x 0.2 cm each). The specimen is filt [facility] ered through a biopsy bag and entirely submitted in toto in A1. SERVICES STEVE Agarwal Embedded Images [facility] SERVICES Specimen Tissue - STOMACH Performing Organization Address City/[facility] Phone Number [facility] CLIA: [id number], [address] [place] [address] [facility] POCT GLUCOSE (AUTOMATED) (12/04/2019 2:29 PM WOOL GRADER) POCT GLU 198 (H)Comment: 70 - 110 mg/dL [facility] Notified Provider [facility] Specimen Blood Performing Organization Address [facility] Phone Number [facility] CLIA: [id number], [address] [place] [address] [phone] [facility] POCT GLUCOSE (AUTOMATED) (12/04/2019 11:49 AM WOOL GRADER) POCT GLU 236 (H)Comment: 70 - 110 mg/dL [facility] Notified Provider [facility] Specimen Blood Performing Organization Address [facility] Phone Number [facility] CLIA: [id number], [address] [place] [address] [facility] MAGNESIUM (12/04/2019 3:50 AM WOOL GRADER) MAGNESIUM 2.0 1.7 - 2.4 mg/dL [facility] Specimen Blood - ARM, LEFT Performing Organization Address [facility] Phone Number [facility] CLIA: [id number], [address] [place] [address] [phone] [facility] BASIC METABOLIC PANEL (NA, K, CL, CO2, GLUCOSE, BUN, CREATININE, CA) (2019 3:50 AM WOOL GRADER) NA 136 135 - 145 [facility] mmol/L SERVICES K 3.5 3.5 - 5.0 [facility] mmol/L SERVICES CL 100 98 - 108 mmol/L [facility] SERVICES CO2 TOTAL 21 (L) 23 - 31 mmol/L [facility] SERVICES AGAP 15 2 - 16 [facility] SERVICES BUN 23 7 - 23 mg/dL [facility] SERVICES GLUCOSE 209 (H) 70 - 110 mg/dL [facility] SERVICES CREATININE 2.55 (H) 0.50 - 1.04 [facility] mg/dL SERVICES CALCIUM 9.1 8.6 - 10.6 [facility] mg/dL SERVICES eGFR Calculation 21.1 mL/min/1.73m2 [facility] (Non- SERVICES Faroese) eGFR Calculation 25.5 mL/min/1.73m2 [facility] () SERVICES Specimen Blood - ARM, LEFT Narrative Performed At Association of Glomerular Filtration Rate (GFR) and Staging [facility] SERVICES of Kidney Disease* + + [...] abnormalities in imaging tests). Performing Organization Address City/[facility] Phone Number [facility] CLIA: [id number], [address] [place] [address] [facility] POCT GLUCOSE (AUTOMATED) (12/04/2019 3:36 AM WOOL GRADER) [facility] POCT GLU 211 (H) 70 - 110 mg/dL [facility] Specimen Blood Performing Organization Address City/[facility] Phone Number [facility] CLIA: [id number], [address] [place] [address] [facility] POCT GLUCOSE (AUTOMATED) (12/03/2019 10:59 PM WOOL GRADER) POCT GLU 191 (H) 70 - 110 mg/dL [facility] Specimen Blood Performing Organization Address [facility] Phone Number [facility] CLIA: [id number], [address] [place] [address] [facility] POCT GLUCOSE (AUTOMATED) (12/03/2019 9:03 PM WOOL GRADER) POCT GLU 169 (H)Comment: 70 - 110 mg/dL [facility] Specimen Blood Performing Organization Address [facility] [place] Phone Number [facility] CLIA: [id number], [address] [place] [address] [phone] [facility] POCT GLUCOSE (AUTOMATED) (12/03/2019 5:38 PM WOOL GRADER) POCT GLU 222 (H) 70 - 110 mg/dL [facility] Specimen Blood Performing Organization Address [facility] [place] Phone Number [facility] CLIA: [id number], [address] [place] [address] [facility] CRYOGLOBULIN QUALITATIVE (12/03/2019 4:46 PM WOOL GRADER) CRYOGLOB Absent Absent [facility] Specimen Blood - HAND, RIGHT Performing Organization Address [facility] [place] Phone Number [facility] CLIA: [id number], [address] [place] [address] [phone] [facility] VITAMIN D, 25-OH (12/03/2019 4:44 PM WOOL GRADER) VIT D 25OH <13 (L) 25 - 80 ng/mL [facility] Specimen Blood - HAND, LEFT Narrative Performed At Deficiency: <20 ng/mL [facility] Insufficiency: 20-24 ng/mL Optimal: 25-80 ng/mL Performing Organization Address [facility] [place] Phone Number [facility] CLIA: [id number], [address] [place] [address] [phone] [facility] ANTI-TURPIN(SM) (12/03/2019 4:44 PM WOOL GRADER) Anti-Turpin Negative Negative [facility] Specimen Blood - HAND, LEFT Narrative Performed At Positive - Antibody detected. [facility] Negative - No antibody detected. Performing Organization Address [facility] [place] Phone Number [facility] CLIA: [id number], [address] [place] [address] [facility] ANTI-DOUBLE STRANDED DNA (12/03/2019 4:44 PM WOOL GRADER) ANTI-DSDNA <1.0 0.0 - 4.0 IU/mL [facility] Specimen Blood - HAND, LEFT Narrative Performed At Negative < or=4 IU/mL [facility] Positive > or=10 IU/mL Indeterminate 5-9 IU/mL Performing Organization Address [facility] Number [facility] CLIA: [id number], [address] [place] [address] [phone] [facility] GALV ONLY - SYPHILIS IGG/IGM (12/03/2019 4:44 PM WOOL GRADER) Syphilis IgG/IgM Non-reactive Non-reactive [facility] Specimen Blood - HAND, LEFT Narrative Performed At [facility] Non-reactive - No serologic evidence of T. pallidum infection. Cannot exclude incubating or early syphilis. Submit a second specimen in 2-4 weeks if syphilis is clinically suspected. Equivocal - Further testing to follow. Reactive - Further testing to follow. Performing Organization Address [facility] [place] Phone Number [facility] CLIA: [id number], [address] [place] [phone] [facility] C4 COMPLEMENT (12/03/2019 4:44 PM WOOL GRADER) C4 35 20 - 59 mg/dL [facility] Specimen Blood - HAND, LEFT Performing Organization Address [facility] [place] Phone Number [facility] CLIA: [id number], [address] [place] [address] [phone] [facility] C3 COMPLEMENT (12/03/2019 4:44 PM WOOL GRADER) C3 84 (L) 86 - 184 mg/dL [facility] Specimen Blood - HAND, LEFT Performing Organization Address [facility] Phone Number [facility] CLIA: [id number], [address] [place] [phone] [facility] POCT GLUCOSE (AUTOMATED) (12/03/2019 2:11 PM WOOL GRADER) POCT GLU 155 (H) 70 - 110 mg/dL [facility] Specimen Blood Performing Organization Address City/[facility] Phone Number [facility] CLIA: [id number], [address] [place] [address] [facility] POCT GLUCOSE (AUTOMATED) (12/03/2019 11:22 AM WOOL GRADER) POCT GLU 225 (H) 70 - 110 mg/dL [facility] Specimen Blood Performing Organization Address [facility] [place] Phone Number [facility] CLIA: [id number], [address] [place] [address] [phone] [facility] HEPATIC FUNCTION PANEL ([id number]) (ALB,T.PRO,BILI T,BU/BC,ALT,AST,ALK PHOS) (2019 9:18 AM WOOL GRADER) TOTAL BILI 0.5 0.1 - 1.1 mg/dL [facility] BILI UNCON 0.3 0.1 - 1.1 mg/dL [facility] BILI CONJ 0.0 0.0 - 0.3 mg/dL [facility] T PROTEIN 6.1 (L) 6.3 - 8.2 g/dL [facility] ALBUMIN 3.5 3.5 - 5.0 g/dL [facility] ALK PHOS 59 34 - 122 U/L [facility] ALTv 19 5 - 35 U/L [facility] AST(SGOT) 24 13 - 40 U/L [facility] Specimen Blood - HAND, RIGHT Performing Organization Address [facility] [place] Phone Number [facility] CLIA: [id number], [address] [place] [address] [phone] [facility] LIPID PANEL ([id number])(TOTAL CHOLESTEROL, TRIGLYCERIDES, HDL) (12/03/2019 9:18 AM WOOL GRADER) CHOL 202 (H) 120 - 200 mg/dL [facility] HDL 66 >50 mg/dL [facility] HDLC RATIO 3.1 <=4.5 [facility] TRIG 209 (H) 30 - 170 mg/dL [facility] LDL CHOL 94 <=160 mg/dL [facility] VLDL 42 5 - 60 mg/dL [facility] Specimen Blood - HAND, RIGHT Performing Organization Address City/State/Zipcode Phone Number [facility] CLIA: [id number], [address] [place] [address] [phone] [facility] MAGNESIUM (12/03/2019 9:18 AM WOOL GRADER) MAGNESIUM 2.1 1.7 - 2.4 mg/dL [facility] Specimen Blood - HAND, RIGHT Performing Organization Address [facility] Phone Number [facility] CLIA: [id number], [address] [place] [address] [facility] BASIC METABOLIC PANEL (NA, K, CL, CO2, GLUCOSE, BUN, CREATININE, CA) (2019 9:18 AM WOOL GRADER) NA 136 135 - 145 [facility] mmol/L SERVICES K 3.8 3.5 - 5.0 [facility] mmol/L SERVICES CL 101 98 - 108 mmol/L [facility] CO2 TOTAL 22 (L) 23 - 31 mmol/L [facility] AGAP 13 2 - 16 [facility] BUN 22 7 - 23 mg/dL [facility] GLUCOSE 247 (H) 70 - 110 mg/dL [facility] CREATININE 2.26 (H) 0.50 - 1.04 [facility] mg/dL SERVICES CALCIUM 8.8 8.6 - 10.6 [facility] mg/dL SERVICES eGFR Calculation 24.2 mL/min/1.73m2 [facility] (Non- SERVICES Faroese) eGFR Calculation 29.3 mL/min/1.73m2 [facility] () SERVICES Specimen Blood - HAND, RIGHT Narrative Performed At Association of Glomerular Filtration Rate (GFR) and Staging [facility] of Kidney Disease* + + [...] abnormalities in imaging tests). Performing Organization Address City/[facility] Phone Number [facility] CLIA: [id number], [address] [place] [address] [facility] POCT GLUCOSE (AUTOMATED) (12/03/2019 7:44 AM WOOL GRADER) POCT GLU 236 (H) 70 - 110 mg/dL [facility] Specimen Blood Performing Organization Address [facility] [place] Phone Number [facility] CLIA: [id number], [address] [place] [address] [phone] [facility] POCT GLUCOSE (AUTOMATED) (12/03/2019 4:51 AM WOOL GRADER) POCT GLU 154 (H) 70 - 110 mg/dL [facility] Specimen Blood Performing Organization Address [facility] [place] Phone Number [facility] CLIA: [id number], [address] [place] [address] [facility] POCT GLUCOSE (AUTOMATED) (12/03/2019 2:07 AM WOOL GRADER) POCT GLU 163 (H) 70 - 110 mg/dL [facility] Specimen Blood Performing Organization Address [facility] [place] Phone Number [facility] CLIA: [id number], [address] [place], [place] [phone] [facility] MR BRAIN W WO CONTRAST (12/03/2019 1:48 AM WOOL GRADER) Specimen Impressions Performed At PACS/VR/DOSE No acute intracranial abnormality. Preliminary Report Dictated by Resident: Meghann Moncada MD., have reviewed this study and agree with the above report. Narrative Performed At MR BRAIN W WO CONTRAST PACS/VR/DOSE COMPARISON: CT head without contrast 11/10/2019 HISTORY: intractable nausea for weeks, assess for mass lesion(s) TECHNIQUE: Multiweighted multisequence MR imaging of the brain was obtained at 1.5 Daily before and after the administration of 15 mL of Dotarem intravenous contrast. FINDINGS: The ventricles and cerebral sulci are normal in caliber and configuration. No midline shift, hydrocephalus or pathological extra-axial fluid collection is present. The basal cisterns are unremarkable. No restricted diffusion is present to suggest acute infarct. Few foci of T2/FLAIR hyperintensity are scattered in the bilateral cerebral hemispheres and left cerebellar hemisphere, nonspecific. No abnormal gradient blooming. No abnormal parenchymal enhancement is noted. The T2 flow voids for the major intracranial vessels are unremarkable. No abnormal fluid signal is present in the mastoid air cells or paranasal air sinuses. Procedure Note [facility], Radiant Results Inft User - 12/03/2019 8:34 AM WOOL GRADER MR BRAIN W WO CONTRAST COMPARISON: CT head without contrast 11/10/2019 HISTORY: intractable nausea for weeks, assess for mass lesion(s) TECHNIQUE: Multiweighted multisequence MR imaging of the brain was obtained at 1.5 Daily before and after the administration of 15 mL of Dotarem intravenous contrast. FINDINGS: The ventricles and cerebral sulci are normal in caliber and configuration. No midline shift, hydrocephalus or pathological extra-axial fluid collection is present. The basal cisterns are unremarkable. No restricted diffusion is present to suggest acute infarct. Few foci of T2/FLAIR hyperintensity are scattered in the bilateral cerebral hemispheres and left cerebellar hemisphere, nonspecific. No abnormal gradient blooming. No abnormal parenchymal enhancement is noted. The T2 flow voids for the major intracranial vessels are unremarkable. No abnormal fluid signal is present in the mastoid air cells or paranasal air sinuses. IMPRESSION No acute intracranial abnormality. Preliminary Report Dictated by Resident: Meghann Moncada MD., have reviewed this study and agree with the above report. Performing Organization Address City/[facility]/Zipcode Phone Number PACS/VR/DOSE POCT GLUCOSE (AUTOMATED) (12/02/2019 11:04 PM WOOL GRADER) POCT GLU 142 (H) 70 - 110 mg/dL [facility] Specimen Blood Performing Organization Address [facility] Phone Number [facility] CLIA: [id number], [address] [place] [address] [employer] [facility] POCT GLUCOSE (AUTOMATED) (12/02/2019 7:51 PM WOOL GRADER) POCT GLU 201 (H) 70 - 110 mg/dL [facility] Specimen Blood Performing Organization Address [facility] [place] Phone Number [facility] CLIA: [id number], [address] [place] [address] [facility] POCT GLUCOSE (AUTOMATED) (12/02/2019 5:22 PM WOOL GRADER) POCT GLU 165 (H)Comment: 70 - 110 mg/dL [facility] Specimen Blood Performing Organization Address [facility] [place] Phone Number [facility] CLIA: [id number], [address] [place] [phone] [employer] [facility] POCT GLUCOSE (AUTOMATED) (12/02/2019 11:20 AM WOOL GRADER) POCT GLU 167 (H) 70 - 110 mg/dL [facility] Specimen Blood Performing Organization Address [facility] [place] Phone Number [facility] CLIA: [id number], [address] [place] [address] [id number] [employer] [facility] POCT GLUCOSE (AUTOMATED) (12/02/2019 10:01 AM WOOL GRADER) POCT GLU 235 (H) 70 - 110 mg/dL [facility] Specimen Blood Performing Organization Address [facility] [place] Phone Number [facility] CLIA: [id number], [address] [place] [address] [facility] POCT GLUCOSE(AGE >30DAYS) (12/02/2019 10:01 AM WOOL GRADER) POCT Glu (age>30days) 235 (A) 70 - 110 mg/dL Specimen Blood - CAPILLARY N-TERMINAL PRO-BNP (12/02/2019 8:39 AM WOOL GRADER) NT-proBNP 22,600 (H) <=125 pg/mL [facility] Specimen Blood - VENOUS Narrative Performed At [facility] has been reported to cause a negative bias, interpret [facility] results relative to patient's use of biotin. Performing Organization Address City/State/Zipcode Phone Number [facility] CLIA: [id number], [address] [place] [address] [facility] BASIC METABOLIC PANEL (NA, K, CL, CO2, GLUCOSE, BUN, CREATININE, CA) (2019 8:39 AM WOOL GRADER) NA 136 135 - 145 [facility] mmol/L SERVICES K 3.8 3.5 - 5.0 [facility] mmol/L SERVICES CL 100 98 - 108 mmol/L [facility] CO2 TOTAL 25 23 - 31 mmol/L [facility] AGAP 11 2 - 16 [facility] BUN 25 (H) 7 - 23 mg/dL [facility] GLUCOSE 309 (H) 70 - 110 mg/dL [facility] CREATININE 1.94 (H) 0.50 - 1.04 [facility] mg/dL SERVICES CALCIUM 8.0 (L) 8.6 - 10.6 [facility] mg/dL SERVICES eGFR Calculation 28.9 mL/min/1.73m2 [facility] (Non- SERVICES Faroese) eGFR Calculation 35.0 mL/min/1.73m2 [facility] () SERVICES Specimen Blood - VENOUS Narrative Performed At Association of Glomerular Filtration Rate (GFR) and Staging [facility] of Kidney Disease* + + [...] tests). Performing Organization Address City/State/Zipcode Phone Number [facility] CLIA: [id number], [address] [place] [address] [phone] [facility] BASIC METABOLIC PANEL (NA, K, CL, CO2, GLUCOSE, BUN, CREATININE, CA) (2019 6:44 AM WOOL GRADER) NA 135 135 - 145 [facility] mmol/L SERVICES K 3.1 (L) 3.5 - 5.0 [facility] mmol/L SERVICES CL 101 98 - 108 mmol/L [facility] SERVICES CO2 TOTAL 19 (L) 23 - 31 mmol/L [facility] AGAP 15 2 - 16 [facility] BUN 24 (H) 7 - 23 mg/dL [facility] SERVICES GLUCOSE 354 (H) 70 - 110 mg/dL [facility] SERVICES CREATININE 1.97 (H) 0.50 - 1.04 [facility] mg/dL SERVICES CALCIUM 7.8 (L) 8.6 - 10.6 [facility] mg/dL SERVICES eGFR Calculation 28.4 mL/min/1.73m2 [facility] (Non- SERVICES Faroese) eGFR Calculation 34.4 mL/min/1.73m2 [facility] () SERVICES Specimen Blood - VENOUS Narrative Performed At Association of Glomerular Filtration Rate (GFR) and Staging [facility] of Kidney Disease* + + [...] abnormalities in imaging tests). Performing Organization Address [facility] Phone Number [facility] CLIA: [id number], [address] [place] [address] [phone] [facility] ACUTE CARE VENOUS BLOOD GAS (12/02/2019 6:44 AM WOOL GRADER) PH 7.33 7.32 - 7.42 [facility] PCO2 MIL 40 (L) 41 - 51 mmHg [facility] PO2 MIL 63 (HH) 25 - 40 mmHg [facility] HCO3 MIL 21 (L) 24 - 28 mEq/L [facility] AC VBE(BEAKER) -5.0 mEq/L [facility] Specimen Blood - VENOUS Performing Organization Address [facility] Phone Number [facility] CLIA: [id number], [address] [place] [address] [facility] POCT GLUCOSE (AUTOMATED) (12/02/2019 6:43 AM WOOL GRADER) POCT GLU 377 (H) 70 - 110 mg/dL [facility] Specimen Blood Performing Organization Address [facility] Phone Number [facility] CLIA: [id number], [address] [place] [address] [phone] [facility] TEST, SERUM (12/02/2019 3:57 AM WOOL GRADER) PREG SERUM Negative [facility] Specimen Blood - ARM, LEFT Narrative Performed At Less than 10 IU/L. If low titer or ectopic is [facility] suspected, resubmit specimen in 48-72 hours. Performing Organization Address [facility]/State/Zipcode Phone Number [facility] CLIA: [id number], [address] [place], [place] [address] [phone] [facility] MAGNESIUM (12/02/2019 3:57 AM WOOL GRADER) MAGNESIUM 1.5 (L) 1.7 - 2.4 mg/dL [facility] Specimen Blood - ARM, LEFT Performing Organization Address City/State/Zipcode Phone Number [facility] CLIA: [id number], [address] [place] [address] [facility] BASIC METABOLIC PANEL (NA, K, CL, CO2, GLUCOSE, BUN, CREATININE, CA) (2019 3:57 AM WOOL GRADER) NA 132 (L) 135 - 145 [facility] mmol/L SERVICES K 3.2 (L) 3.5 - 5.0 [facility] mmol/L SERVICES CL 96 (L) 98 - 108 mmol/L [facility] SERVICES CO2 TOTAL 18 (L) 23 - 31 mmol/L [facility] AGAP 18 (H) 2 - 16 [facility] BUN 27 (H) 7 - 23 mg/dL [facility] GLUCOSE 311 (H) 70 - 110 mg/dL [facility] CREATININE 2.17 (H) 0.50 - 1.04 [facility] mg/dL SERVICES CALCIUM 8.8 8.6 - 10.6 [facility] mg/dL SERVICES eGFR Calculation 25.4 mL/min/1.73m2 [facility] (Non- SERVICES Faroese) eGFR Calculation 30.8 mL/min/1.73m2 [facility] () SERVICES Specimen Blood - ARM, LEFT Narrative Performed At Association of Glomerular Filtration Rate (GFR) and Staging [facility] of Kidney Disease* + + [...] abnormalities in imaging tests). Performing Organization Address [facility] Phone Number [facility] CLIA: [id number], [address] [place] [phone] [facility] GALV/CLC ONLY - URINE DRUG (IMMUNOASSAY) - COMPREHENSIVE DRUG SCREEN (2019 3:35 AM WOOL GRADER) AMPHET Negative Negative [facility] VINOD U Negative Negative [facility] BENZO U Negative Negative [facility] Cocaine Metabolite Negative Negative [facility] METHADONE Negative Negative [facility] OPIATES Negative Negative [facility] PCP Negative Negative [facility] THC Negative Negative [facility] Specimen Urine - URINE, CLEAN CATCH Narrative Performed At Urine Drug Cutoff Ranges [facility] Cocaine: 150 ng/mL Benzodiazepines: 200 ng/mL Methadone: 300 ng/mL Amphetamine: 1,000 ng/mL Opiates: 300 ng/mL Cannabinoids: 50 ng/mL Phencyclidine: 25 ng/mL Barbiturates: 200 ng/mL The results are to be used only for medical (i.e., treatment) purposes. Unconfirmed screening results must not be used for non-medical purposes (e.g., employment testing, legal testing). Performing Organization Address [facility] Phone Number [facility] CLIA: [id number], [address] [place] [phone] [facility] PROTEIN CREAT RATIO URINE RANDOM (12/02/2019 3:35 AM WOOL GRADER) T. PROT U 316 mg/dL [facility] CREAT U 29.0 mg/dL [facility] Protein/Creatinine 10.9 (H) 0.0 - 2.0 [facility] Ratio Urine SERVICES Specimen Urine - URINE, CLEAN CATCH Performing Organization Address [facility] Phone Number [facility] CLIA: [id number], [address] [place] [address] [phone] [facility] URINALYSIS (12/02/2019 3:35 AM WOOL GRADER) APPEARANCE Clear Clear [facility] COLOR Straw (A) Yellow [facility] PH 9.0 (A) 4.8 - 8.0 [facility] SP GRAVITY 1.007 1.003 - 1.030 [facility] GLU U QUAL 500 mg/dL (A) Normal [facility] BLOOD Negative Negative [facility] KETONES 5 mg/dL (A) Negative [facility] PROTEIN 100 mg/dL (A) Negative [facility] UROBILIN Normal Normal [facility] BILIRUBIN Negative Negative [facility] NITRITE Negative Negative [facility] [employer] Negative Negative [facility] RBC/HPF 1 0 - 3 HPF [facility] WBC/HPF 2 0 - 5 HPF [facility] BACTERIA Negative Negative [facility] SQ EPITH 2 <=2 HPF [facility] Specimen Urine - URINE, CLEAN CATCH Performing Organization Address City/State/Zipcode Phone Number [facility] [facility] CLIA: [id number], [address] [place] [address] [facility] CBC WITH DIFFERENTIAL (12/02/2019 3:24 AM WOOL GRADER) WBC 12.63 (H) 4.30 - 11.10 [facility] 10*3/L SERVICES RBC 3.91 (L) 3.93 - 5.25 [facility] 10*6/L SERVICES HGB 11.1 (L) 11.6 - 15.0 [facility] g/dL SERVICES HCT 32.8 (L) 35.7 - 45.2 % [facility] MCV 83.9 80.6 - 95.5 fL [facility] MCH 28.4 25.9 - 32.8 pg [facility] MCHC 33.8 31.6 - 35.1 [facility] g/dL SERVICES RDW-SD 37.0 (L) 39.0 - 49.9 fL [facility] RDW-CV 12.3 12.0 - 15.5 % [facility] PLT 304 166 - 358 [facility] 10*3/L SERVICES MPV 11.8 9.5 - 12.9 fL [facility] NRBC/100 WBC 0.0 0.0 - 10.0 /100 [facility] WBCs SERVICES NRBC x10^3 <0.01 10*3/L [facility] GRAN MAT (NEUT) % 76.7 % [facility] IMM GRAN % 0.50 % [facility] LYMPH % 12.6 % [facility] MONO % 7.7 % [facility] EOS % 2.1 % [facility] BASO % 0.4 % [facility] GRAN MAT x10^3(ANC) 9.70 (H) 1.88 - 7.09 [facility] 10*3/uL SERVICES IMM GRAN x10^3 0.06 0.00 - 0.06 [facility] 10*3/uL SERVICES LYMPH x10^3 1.59 1.32 - 3.29 [facility] 10*3/uL SERVICES MONO x10^3 0.97 (H) 0.33 - 0.92 [facility] 10*3/uL SERVICES EOS x10^3 0.26 0.03 - 0.39 [facility] 10*3/uL SERVICES BASO x10^3 0.05 0.01 - 0.07 [facility] 10*3/uL SERVICES Specimen Blood - ARM, LEFT Performing Organization Address City/State/Zipcode Phone Number [facility] CLIA: [id number], [address] [place] [address] [facility] POCT GLUCOSE (AUTOMATED) (12/02/2019 2:09 AM WOOL GRADER) POCT GLU 283 (H) 70 - 110 mg/dL [facility] Specimen Blood Performing Organization Address City/[facility]/Zipcode Phone Number [facility] CLIA: [id number], [address] [place] [address] [facility] documented in this encounter Visit Diagnoses Diagnosis Intractable nausea and vomiting - Primary Persistent vomiting Hyperglycemia Other abnormal glucose Metabolic acidosis Acidosis Hypokalemia Hypopotassemia Hypomagnesemia Disorders of magnesium metabolism Dehydration Type 2 diabetes mellitus without complication, unspecified whether senior care insulin use Nephrotic syndrome Nephrotic syndrome with unspecified pathological lesion in kidney documented in this encounter Administered Medications Medication Order MAR Action Action Date Dose Rate Site acetaminophen (TYLENOL) tablet Given 12/06/2019 6:17 AM WOOL GRADER 650 mg 650 mg 650 mg, Oral, Q6HPRN, Starting Sat12/02/19 at 0921, Until Discontinued, Routine, Pain (scale 1-3) amLODIPine (NORVASC) tablet 5 mg Given 12/12/2019 10:41 AM WOOL GRADER 5 mg 5 mg, Oral, DAILY, First dose on Sat12/09/19 at 0900, Until Discontinued, Routine Given 12/11/2019 8:34 AM WOOL GRADER 5 mg Given 12/10/2019 9:09 AM WOOL GRADER 5 mg carvediloL (COREG) tablet 25 mg Given 12/12/2019 10:45 AM WOOL GRADER 25 mg 25 mg, Oral, BID MEALS, First dose on Sat12/08/19 at 1700, Until Discontinued, Routine Given 12/11/2019 5:36 PM WOOL GRADER 25 mg Given 12/11/2019 8:34 AM WOOL GRADER 25 mg dextrose 10% (D10W) bolus infusion 250 mL Given 12/11/2019 10:33 PM WOOL GRADER 250 mL 250 mL, IV Infusion, PRN - SEE INSTRUCTIONS, bg < 70, Starting Sat12/11/19 at 2209, Dextrose 10% 250 mL bag contains: 10 wy=734 mL 20 ds=073 mL 25 rw=452 mL (whole bag) The maximum rate at which dextrose can be infused without producing glycosuria is 0.5 g/kg/hour. BUD: If wrapper is open bag is good for 30 days at room temperature. , diphenhydrAMINE (BENADRYL) tablet 25 mg Given 12/12/2019 10:41 AM WOOL GRADER 25 mg 25 mg, Oral, QID, First dose on Sat12/08/19 at 1600, Until Discontinued, Routine Given 12/11/2019 9:45 PM WOOL GRADER 25 mg Given 12/11/2019 5:50 PM WOOL GRADER 25 mg enoxaparin (LOVENOX) injection 30 mg Given 12/11/2019 5:40 PM WOOL GRADER 30 mg Abdomen-SC 30 mg, Subcutaneous, Q24H, First dose on Sat12/06/19 at 1615, Until Discontinued, Routine Given 12/10/2019 5:58 PM WOOL GRADER 30 mg Abdomen-SC Given 12/09/2019 5:07 PM WOOL GRADER 30 mg Abdomen-SC ergocalciferol (vitamin d2) Given 12/11/2019 1:38 PM WOOL GRADER 50,000 Units (CALCIFEROL) capsule 50,000 Units 50,000 Units, Oral, QWEEKLY, First dose on Sat12/11/19 at 0900, Until Discontinued, Routine erythromycin ethylsuccinate (E.E.S.) 200 Given 12/12/2019 5:15 AM WOOL GRADER 180 mg mg/5 mL suspension 180 mg 180 mg, Oral, Q8H ABX, First dose on Sat12/08/19 at 1245, Until Discontinued, ELIJAH, Reason for Anti-Infective: Empiric Therapy for Suspected Infection, Empiric Therapy Site: Abdominal, Duration of therapy: 72 hours Given 12/11/2019 9:45 PM WOOL GRADER 180 mg Given 12/11/2019 1:38 PM WOOL GRADER 180 mg glucagon (GLUCAGEN DIAGNOSTIC KIT) injection 1 Given 12/11/2019 10:18 PM WOOL GRADER 1 mg mg 1 mg, Intravenous, PRN, Starting Sat12/11/19 at 2209, Until Discontinued, Routine, for BG < 70 hydralAZINE (APRESOLINE) injection 10 mg Given 12/04/2019 3:51 AM WOOL GRADER 10 mg 10 mg, Intravenous, Q6HPRN, Starting Misti 12/03/19 at 0505, Until Discontinued, Routine, Hypertensive emergency, Systolic >180, Diastolic >110 insulin NPH (HUMULIN N) injection 14 Units 14 Units, Subcutaneous, QPM, First dose on Sat12/12/19 at 1700, Until Discontinued, Routine insulin NPH (HUMULIN N) injection Given 12/12/2019 10:51 AM WOOL GRADER 16 Units Abdomen-SC 16 Units 16 Units, Subcutaneous, QAM, First dose on Sat12/12/19 at 0900, Until Discontinued, Routine insulin regular human (HUMULIN R) Given 12/12/2019 10:58 AM WOOL GRADER 4 Units Abdomen-SC injection 4 Units 4 Units, Subcutaneous, BID MEALS, First dose on 12/12/19 at 0800, Until Discontinued, Routine lidocaine 1% (PF) (XYLOCAINE) injection 5 mL 5 mL, Subcutaneous, PRN, Starting 12/07/19 at 2223, Until Discontinued, Routine, Local anesthesia metoclopramide HCl (REGLAN) 5 mg/5 mL solution Given 12/12/2019 10:41 AM WOOL GRADER 5 mg 5 mg 5 mg, Oral, QID, First dose on Sat12/06/19 at 1600, Until Discontinued, Routine Given 12/11/2019 9:46 PM WOOL GRADER 5 mg Given 12/11/2019 5:37 PM WOOL GRADER 5 mg NaCl 0.9% (NS) injection 10 mL 10 mL, Slow IV Push, PRN, Starting 12/07/19 at 2223, Until Discontinued, Routine, 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 (ZOFRAN (PF)) injection 4 mg Given 12/04/2019 8:25 AM WOOL GRADER 4 mg 4 mg, Slow IV Push, Q6HPRN, Starting Sat12/02/19 at 1413, Until Discontinued, ELIJAH, Nausea and Vomiting (N/V) Given 12/03/2019 8:19 PM WOOL GRADER 4 mg Given 12/03/2019 12:14 PM WOOL GRADER 4 mg pantoprazole (PROTONIX) EC tablet 40 mg Given 12/12/2019 10:41 AM WOOL GRADER 40 mg 40 mg, Oral, BID, First dose on Sat12/04/19 at 2000, Until Discontinued, Routine Given 12/11/2019 9:45 PM WOOL GRADER 40 mg Given 12/11/2019 6:29 AM WOOL GRADER 40 mg Polyethylene Glycol 3350 (MIRALAX) powder 34 g Given 12/12/2019 10:41 AM WOOL GRADER 34 g 34 g, Oral, DAILY, First dose on Sat12/03/19 at 0900, Until Discontinued, Routine Given 12/11/2019 8:35 AM WOOL GRADER 34 g Given 12/09/2019 9:14 AM WOOL GRADER 34 g proMETHazine (PHENERGAN) 25 mg in NaCl 0.9% Given 12/04/2019 1:29 PM WOOL GRADER 25 mg (NS) 50 mL IV piggyback 25 mg, IV Piggyback, Q4HPRN, Starting Sat12/02/19 at 1413, Until Discontinued, Routine, N/V alternating with Ondansetron Given 12/04/2019 3:52 AM WOOL GRADER 25 mg Given 12/03/2019 10:35 PM WOOL GRADER 25 mg scopolamine transdermal (TRANSDERM-SCOP) Given 12/11/2019 1:39 PM WOOL GRADER 1.5 mg patch 1.5 mg 1.5 mg, Topical, Administer over 72 Hours, Q72H, First dose on Sat12/02/19 at 1215, Until Discontinued, Routine Given 12/08/2019 1:06 PM WOOL GRADER 1.5 mg Applied 12/05/2019 12:26 PM WOOL GRADER 1.5 mg Sliding Scale Insulin-Regular + Given 12/12/2019 1:24 PM WOOL GRADER 3 Units Abdomen-SC Fsbg Testing Subcutaneous, AC+HS, First dose on Sat12/11/19 at 1300, Until Discontinued, Routine Given 12/12/2019 10:50 AM WOOL GRADER 3 Units Abdomen-SC Given 12/11/2019 5:48 PM WOOL GRADER 1 Units Abdomen-SC sucralfate (CARAFATE) tablet 1 g Given 12/12/2019 1:29 PM WOOL GRADER 1 g 1 g, Oral, AC+HS, First dose on Sat12/02/19 at 1630, Until Discontinued, Routine Given 12/12/2019 10:41 AM WOOL GRADER 1 g Given 12/11/2019 9:45 PM WOOL GRADER 1 g trimethobenzamide (TIGAN) Given 12/12/2019 10:38 AM WOOL GRADER 100 mg Right Deltoid-IM injection 100 mg 100 mg, Intramuscular, Q6HPRN, Starting Sat12/08/19 at 1245, Until Discontinued, Routine, Nausea and Vomiting (N/V) Given 12/10/2019 9:09 AM WOOL GRADER 100 mg Right Deltoid-IM Given 12/09/2019 11:04 AM WOOL GRADER 100 mg Right Upper Arm-SC Medication Order MAR Action Action Date Dose Rate Site amLODIPine (NORVASC) tablet 10 mg Given 12/08/2019 9:06 AM WOOL GRADER 10 mg 10 mg, Oral, DAILY, First dose on Sat12/02/19 at 0945, Until Discontinued, Routine Given 12/07/2019 8:02 AM WOOL GRADER 10 mg Given 12/06/2019 8:14 AM WOOL GRADER 10 mg carvediloL (COREG) tablet 37.5 mg Given 12/08/2019 9:06 AM WOOL GRADER 37.5 mg 37.5 mg, Oral, BID MEALS, First dose on Sat12/02/19 at 1700, Until Discontinued, Routine Given 12/07/2019 4:39 PM WOOL GRADER 37.5 mg Given 12/07/2019 8:01 AM WOOL GRADER 37.5 mg cosyntropin (CORTROSYN) injection 250 mcg Given 12/09/2019 7:57 PM WOOL GRADER 250 mcg 250 mcg, Slow IV Push, ONCE, 1 dose, Sat12/09/19 at 1500, Routine dexamethasone (DECADRON) 4 mg in NaCl 0.9% New Bag 12/03/2019 2:07 AM WOOL GRADER 4 mg (NS) piggyback 4 mg, IV Piggyback, Q12H ABX, First dose on Sat12/02/19 at 1300, Until Discontinued, 50 mL New Bag 12/02/2019 1:21 PM WOOL GRADER 4 mg dexamethasone (DECADRON) 4 mg in NaCl 0.9% New Bag 12/05/2019 1:14 AM WOOL GRADER 4 mg (NS) piggyback 4 mg, IV Piggyback, Q8H ABX, First dose on Sat12/04/19 at 1815, Until Discontinued, 50 mL New Bag 12/04/2019 5:47 PM WOOL GRADER 4 mg dexamethasone (DECADRON) 4 mg in NaCl 0.9% New Bag 12/05/2019 7:34 PM WOOL GRADER 4 mg (NS) piggyback 4 mg, IV Piggyback, Q12H, 2 doses, First dose on 12/05/19 at 1000, Last dose on Sat12/05/19 at 2000, 50 mL New Bag 12/05/2019 10:24 AM WOOL GRADER 4 mg dexamethasone (DECADRON) 8 mg in NaCl 0.9% New Bag 12/04/2019 11:00 AM WOOL GRADER 8 mg (NS) piggyback 8 mg, IV Piggyback, Q8H ABX, First dose on Sat12/03/19 at 1015, Until Discontinued, 50 mL New Bag 12/04/2019 1:41 AM WOOL GRADER 8 mg New Bag 12/03/2019 8:04 PM WOOL GRADER 8 mg diph,pertus(acel),tetanus (ADACEL) Given 12/11/2019 5:37 PM 0.5 mL Left Deltoid-IM injection 0.5 mL WOOL GRADER 0.5 mL, Intramuscular, ONCE, 1 dose, Sat12/11/19 at 1315, Routine diphenhydrAMINE (BENADRYL) injection 25 mg Given 12/02/2019 6:03 AM WOOL GRADER 25 mg 25 mg, Slow IV Push, ONCE, 1 dose, Sat12/02/19 at 0700, STAT diphenhydrAMINE (BENADRYL) injection 25 mg Given 12/04/2019 8:28 AM WOOL GRADER 25 mg 25 mg, Slow IV Push, QID, First dose on Sat12/03/19 at 0845, Until Discontinued, Routine Given 12/03/2019 9:59 PM WOOL GRADER 25 mg Given 12/03/2019 5:37 PM WOOL GRADER 25 mg diphenhydrAMINE (BENADRYL) injection 50 mg Given 12/08/2019 9:06 AM WOOL GRADER 50 mg 50 mg, Slow IV Push, QID, First dose on Sat12/04/19 at 1200, Until Discontinued, Routine Given 12/07/2019 8:20 PM WOOL GRADER 50 mg Given 12/07/2019 4:39 PM WOOL GRADER 50 mg enoxaparin (LOVENOX) injection 40 mg Given 12/05/2019 3:46 PM WOOL GRADER 40 mg Abdomen-SC 40 mg, Subcutaneous, Q24H, First dose on Sat12/03/19 at 1615, Until Discontinued, Routine Given 12/04/2019 4:17 PM WOOL GRADER 40 mg Abdomen-SC Given 12/03/2019 5:42 PM WOOL GRADER 40 mg Abdomen-SC erythromycin (ERYTHROCIN) 180 mg in NaCl Given 12/08/2019 4:16 AM WOOL GRADER 180 mg 0.9% (NS) piggyback 180 mg, IV Piggyback, Q8H ABX, First dose on Sat12/04/19 at 1845, Until Discontinued, 250 mL, Reason for Anti-Infective: Empiric Non-Surgical Prophylaxis, Duration of therapy: 7 days, Specific indication: gastroparesis Given 12/07/2019 8:20 PM WOOL GRADER 180 mg Given 12/07/2019 1:07 PM WOOL GRADER 180 mg fosaprepitant (EMEND New Bag 12/04/2019 11:10 PM WOOL GRADER 150 mg 250 mL/hr (FOSAPREPITANT)) 150 mg in NaCl 0.9% (NS) 150 mL IV piggyback 150 mg, IV Piggyback, ONCE, 1 dose, Sat12/04/19 at 1230, 150 mL, 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 Restricted medication: TORRIE MACIEL furosemide (LASIX) injection 20 mg Given 12/04/2019 9:30 PM WOOL GRADER 20 mg 20 mg, Slow IV Push, Q12H, 12 doses, First dose on Sat12/04/19 at 2000, Last dose on Sat12/10/19 at 0800, Routine furosemide (LASIX) injection 40 mg Given 12/02/2019 7:24 PM WOOL GRADER 40 mg 40 mg, Slow IV Push, Q12H, First dose on Sat12/02/19 at 2000, Until Discontinued, Routine furosemide (LASIX) injection 40 mg Given 12/03/2019 9:22 AM WOOL GRADER 40 mg 40 mg, Slow IV Push, Q12H, 1 dose, First dose on Misti 12/03/19 at 0845, Routine furosemide (LASIX) injection 40 mg Given 12/03/2019 8:07 PM WOOL GRADER 40 mg 40 mg, Slow IV Push, Q12H, 14 doses, First dose on Misti 12/03/19 at 2000, Last dose on Sat12/10/19 at 0800, Routine furosemide (LASIX) tablet 40 mg Given 12/02/2019 11:16 AM WOOL GRADER 40 mg 40 mg, Oral, DAILY, First dose on Sat12/02/19 at 0945, Until Discontinued, Routine furosemide (LASIX) tablet 40 mg Given 12/06/2019 8:14 AM WOOL GRADER 40 mg 40 mg, Oral, QAM+PM, First dose on Sat12/05/19 at 0900, Until Discontinued, Routine Given 12/05/2019 6:28 PM WOOL GRADER 40 mg Given 12/05/2019 8:55 AM WOOL GRADER 40 mg furosemide (LASIX) tablet 40 mg Given 12/09/2019 9:12 AM WOOL GRADER 40 mg 40 mg, Oral, QAM+PM, First dose on Sat12/08/19 at 1700, Until Discontinued, Routine Given 12/08/2019 5:49 PM WOOL GRADER 40 mg gadoterate meglumine (DOTAREM-15 mL) Given 12/03/2019 3:00 AM WOOL GRADER 13 mL injection 12.88 mL 12.88 mL (0.2 mL/kg 64.4 kg), Intravenous, ONCE, 1 dose, Misti 12/03/19 at 0300, Routine haloperidol lactate (HALDOL) injection 2.5 Given 12/02/2019 6:03 AM WOOL GRADER 2.5 mg mg 2.5 mg, Intravenous, ONCE, 1 dose, Sat12/02/19 at 0700, STAT heparin (porcine) injection Given 12/03/2019 9:22 AM WOOL GRADER 5,000 Units Abdomen-SC 5,000 Units 5,000 Units, Subcutaneous, Q12H, First dose on Sat12/02/19 at 2000, Until Discontinued, Routine Given 12/02/2019 7:24 PM WOOL GRADER 5,000 Units Abdomen-SC hepatitis A & B vaccine Given 12/11/2019 5:37 PM WOOL GRADER 1 mL Left Deltoid- IM (TWINRIX) 720 SANDI unit- 20 mcg/mL injection 1 mL 1 mL, Intramuscular, ONCE, 1 dose, Sat12/11/19 at 1315, Routine hydralAZINE (APRESOLINE) injection 10 mg Given 12/03/2019 5:24 AM WOOL GRADER 10 mg 10 mg, Intravenous, ONCE NOW, 1 dose, Misti 12/03/19 at 0615, Routine insulin NPH (HUMULIN N) injection Given 12/11/2019 5:41 PM WOOL GRADER 10 Units Abdomen-SC 10 Units 10 Units, Subcutaneous, QPM, First dose on Sat12/11/19 at 1700, Until Discontinued, Routine insulin NPH (HUMULIN N) injection Given 12/05/2019 9:00 PM WOOL GRADER 11 Units Abdomen-SC 11 Units 11 Units, Subcutaneous, QAM+HS, First dose on 12/05/19 at 2100, Until Discontinued, Routine insulin NPH (HUMULIN N) Given 12/06/2019 5:50 PM WOOL GRADER 12 Units Right Upper Arm-SC injection 12 Units 12 Units, Subcutaneous, QPM, First dose on 12/06/19 at 1700, Until Discontinued, Routine insulin NPH (HUMULIN N) Given 12/07/2019 8:04 AM WOOL GRADER 6 Units Right Upper Arm-SC injection 13 Units 13 Units, Subcutaneous, QAM, First dose on Sat12/07/19 at 0900, Until Discontinued, Routine insulin NPH (HUMULIN N) Given 12/06/2019 8:18 AM WOOL GRADER 16 Units Right Upper Arm-SC injection 16 Units 16 Units, Subcutaneous, QAM, First dose on Sat12/06/19 at 0900, Until Discontinued, Routine insulin NPH (HUMULIN N) injection Given 12/10/2019 5:58 PM WOOL GRADER 6 Units Abdomen-SC 6 Units 6 Units, Subcutaneous, QAM+PM, First dose on Sat12/08/19 at 0900, Until Discontinued, Routine Given 12/10/2019 9:14 AM WOOL GRADER 6 Units Abdomen-SC Given 12/09/2019 5:12 PM WOOL GRADER 6 Units Abdomen-SC insulin NPH (HUMULIN N) Given 12/04/2019 8:28 AM WOOL GRADER 3.5 Units Right Upper Arm-SC injection 7 Units 7 Units, Subcutaneous, QAM+HS, First dose on Sat12/02/19 at 0930, Until Discontinued, Routine Given 12/03/2019 9:52 PM WOOL GRADER 3.5 Units Abdomen-SC Given 12/03/2019 9:36 AM WOOL GRADER 3 Units Right Upper Arm-SC insulin NPH (HUMULIN N) injection Given 12/07/2019 4:41 PM WOOL GRADER 7 Units Abdomen-SC 7 Units 7 Units, Subcutaneous, QPM, First dose on Sat12/07/19 at 1700, Until Discontinued, Routine insulin NPH (HUMULIN N) Given 12/05/2019 8:56 AM WOOL GRADER 9 Units Right Upper Arm-SC injection 9 Units 9 Units, Subcutaneous, QAM+HS, First dose on Sat12/04/19 at 2100, Until Discontinued, Routine Given 12/04/2019 9:31 PM WOOL GRADER 5 Units Abdomen-SC insulin NPH (HUMULIN N) injection Given 12/11/2019 8:38 AM WOOL GRADER 9 Units Abdomen-SC 9 Units 9 Units, Subcutaneous, QAM, First dose on Sat12/11/19 at 0900, Until Discontinued, Routine insulin regular human (HUMULIN R) Given 12/02/2019 7:28 AM WOOL GRADER 10 Units Abdomen-SC injection 10 Units 10 Units, Subcutaneous, ONCE, 1 dose, Sat12/02/19 at 0800, Routine insulin regular human Given 12/05/2019 8:56 AM WOOL GRADER 3 Units Right Upper Arm-SC (HUMULIN R) injection 3 Units 3 Units, Subcutaneous, BID MEALS, First dose on Sat12/02/19 at 1700, Until Discontinued, Routine Given 12/03/2019 5:51 PM WOOL GRADER 3 Units Abdomen-SC insulin regular human (HUMULIN R) Given 12/10/2019 5:58 PM WOOL GRADER 3 Units Abdomen-SC injection 3 Units 3 Units, Subcutaneous, BID MEALS, First dose on Sat12/07/19 at 1700, Until Discontinued, Routine Given 12/10/2019 9:13 AM WOOL GRADER 3 Units Abdomen-SC Given 12/09/2019 5:12 PM WOOL GRADER 3 Units Abdomen-SC insulin regular human Given 12/07/2019 8:04 AM WOOL GRADER 2 Units Right Upper Arm-SC (HUMULIN R) injection 5 Units 5 Units, Subcutaneous, BID MEALS, First dose on Sat12/07/19 at 0800, Until Discontinued, Routine insulin regular human (HUMULIN R) Given 12/11/2019 8:44 AM WOOL GRADER 5 Units Abdomen-SC injection 5 Units 5 Units, Subcutaneous, BID MEALS, First dose on Sat12/11/19 at 0800, Until Discontinued, Routine insulin regular human Given 12/06/2019 5:50 PM WOOL GRADER 6 Units Right Upper Arm-SC (HUMULIN R) injection 6 Units 6 Units, Subcutaneous, BID MEALS, First dose on Sat12/06/19 at 0800, Until Discontinued, Routine Given 12/06/2019 8:18 AM WOOL GRADER 6 Units Right Upper Arm-SC insulin regular human (HUMULIN R) Given 12/11/2019 5:42 PM WOOL GRADER 7 Units Abdomen-SC injection 7 Units 7 Units, Subcutaneous, BID MEALS, First dose on Sat12/11/19 at 1700, Until Discontinued, Routine KCL (KLOR-CON M20) tablet 40 mEq Given 12/06/2019 1:58 PM WOOL GRADER 40 mEq 40 mEq, Oral, Q4H, 2 doses, First dose on Sat12/06/19 at 0800, Last dose on Sat12/06/19 at 1200, Routine Given 12/06/2019 8:14 AM WOOL GRADER 40 mEq KCL (POTASSIUM CHLORIDE) 40 mEq in NaCl 0.9% Given 12/02/2019 8:17 AM WOOL GRADER 40 mEq (NS) piggyback 40 mEq, IV Piggyback, ONCE, 1 dose, Sat12/02/19 at 0800, 250 mL lactated ringers IV infusion New Bag 12/07/2019 4:44 AM WOOL GRADER 1,000 mL 50 mL /hr 1,000 mL at 50 mL/hr, 1,000 mL, IV Infusion, CONTINUOUS, Starting Sat12/06/19 at 1630, Until Sat12/07/19 at 1856, Routine New Bag 12/06/2019 3:54 PM WOOL GRADER 1,000 mL 50 mL/hr magnesium oxide (MAG-OX 400) tablet 400 mg Given 12/06/2019 5:23 AM WOOL GRADER 400 mg 400 mg, Oral, ONCE, 1 dose, Sat12/06/19 at 0615, Routine magnesium sulfate in water 2 gram/50 mL (4 %) New Bag 12/02/2019 7:00 AM WOOL GRADER 2 g infusion 2 g 2 g, IV Piggyback, ONCE, 1 dose, Sat12/02/19 at 0800, ELIJAH magnesium sulfate in water 4 gram/50 mL (8 %) New Bag 12/07/2019 8:03 AM WOOL GRADER 4 g IV Piggyback 4 g 4 g, IV Piggyback, ONCE, 1 dose, Sat12/07/19 at 0715, Routine metoclopramide HCl (REGLAN) 5 mg in NaCl 0.9% Given 12/06/2019 9:41 AM WOOL GRADER 5 mg (NS) piggyback 5 mg, IV Piggyback, QID, First dose on Sat12/06/19 at 0800, Until Discontinued, 50 mL metoclopramide HCl (REGLAN) injection 10 mg Given 12/02/2019 4:59 AM WOOL GRADER 10 mg 10 mg, Slow IV Push, ONCE, 1 dose, Sat12/02/19 at 0600, ELIJAH morpHINE injection 4 mg Given 12/02/2019 3:36 AM WOOL GRADER 4 mg 4 mg, Slow IV Push, ONCE, 1 dose, Sat12/02/19 at 0345, STAT NaCl 0.9% (NS) bolus infusion New Bag 12/02/2019 3:22 AM WOOL GRADER 1,000 mL 999 mL/hr 1,000 mL at 999 mL/hr, 1,000 mL, IV Infusion, ONCE, 1 dose, Sat12/02/19 at 0345, STAT NaCl 0.9% (NS) bolus infusion New Bag 12/02/2019 6:03 AM WOOL GRADER 1,000 mL 999 mL/hr 1,000 mL at 999 mL/hr, 1,000 mL, IV Infusion, ONCE, 1 dose, Sat12/02/19 at 0700, STAT NaCl 0.9% (NS) bolus infusion 500 New Bag 12/09/2019 3:36 PM WOOL GRADER 500 mL 999 mL/hr mL at 999 mL/hr, 500 mL, IV Piggyback, ONCE, 1 dose, Sat12/09/19 at 1530, STAT ondansetron (ZOFRAN (PF)) injection 4 mg Given 12/02/2019 3:36 AM WOOL GRADER 4 mg 4 mg, Slow IV Push, ONCE, 1 dose, Sat12/02/19 at 0345, ELIJAH pantoprazole (PROTONIX) 40 mg in NaCl 0.9% Given 12/02/2019 3:56 AM WOOL GRADER 40 mg (NS) 100 mL MINI-BAG 40 mg, IV Piggyback, ONCE, 1 dose, Sat12/02/19 at 0345, 100 mL pantoprazole (PROTONIX) 40 mg in NaCl 0.9% Given 12/04/2019 8:33 AM WOOL GRADER 40 mg (NS) 100 mL MINI-BAG 40 mg, IV Piggyback, Q12H, First dose on Sat12/02/19 at 2000, Until Discontinued, 100 mL Given 12/03/2019 8:04 PM WOOL GRADER 40 mg Given 12/03/2019 9:22 AM WOOL GRADER 40 mg proCHLORperazine (COMPAZINE) 10 mg in NaCl Given 12/02/2019 10:23 AM WOOL GRADER 10 mg 0.9% (NS) piggyback 10 mg, IV Piggyback, ONCE NOW, 1 dose, Sat12/02/19 at 0930, 50 mL Sliding Scale Insulin - Aspart Given 12/03/2019 11:19 PM 1 Units Left Upper (NOVOLOG) + Fsbg Testing WOOL GRADER Arm-SC Subcutaneous, Q3H, First dose on Sat12/02/19 at 1100, Until Discontinued, Routine Given 12/03/2019 5:41 PM WOOL GRADER 2 Units Abdomen-SC Given 12/03/2019 12:14 PM WOOL GRADER 2 Units Abdomen-SC Sliding Scale Insulin - Aspart Given 12/05/2019 12:14 PM WOOL GRADER 3 Units Abdomen-SC (NOVOLOG) + Fsbg Testing Subcutaneous, Q4H, First dose on Sat12/04/19 at 0000, Until Discontinued, Routine Given 12/05/2019 8:56 AM WOOL GRADER 3 Units Right Upper Arm-SC Given 12/05/2019 4:26 AM WOOL GRADER 2 Units Right Upper Arm-SC Sliding Scale Insulin - Aspart Given 12/06/2019 5:50 PM 1 Units Right Upper (NOVOLOG) + Fsbg Testing WOOL GRADER Arm-SC Subcutaneous, Q3H, First dose on 12/05/19 at 1400, Until Discontinued, Routine Given 12/06/2019 2:46 PM WOOL GRADER 2 Units Right Upper Arm-SC Given 12/06/2019 11:36 AM WOOL GRADER 1 Units Right Upper Arm-SC Sliding Scale Insulin - Aspart Given 12/10/2019 5:58 PM WOOL GRADER 2 Units Abdomen-SC (NOVOLOG) + Fsbg Testing Subcutaneous, AC+HS, First dose on 12/07/19 at 1630, Until Discontinued, Routine Given 12/10/2019 12:24 PM [employer]ER 1 Units Abdomen-SC Given 12/10/2019 9:14 AM [employer]ER 2 Units Abdomen-SC Sliding Scale Insulin-Regular + Given 12/11/2019 8:38 AM [employer]ER 3 Units Abdomen-SC Fsbg Testing Subcutaneous, AC+HS, First dose on Misti 12/10/19 at 2100, Until Discontinued, Routine Given 12/10/2019 9:13 PM [employer] GR[employer]ER 1 Units Right Upper Arm-SC traMADol (ULTRAM) tablet 50 mg Given 12/02/2019 8:24 PM [employer] GR[employer]ER 50 mg 50 mg, Oral, [id number], Starting Sat12/02/19 at 0921, Until Sat12/04/19 at 0920, Routine, Pain (scale 4-6) trimethobenzamide (TIGAN) Given 12/08/2019 9:03 AM [employer] 100 mg Left Deltoid-IM injection 100 mg 100 mg, Intramuscular, Q6H ABX, First dose on Sat12/04/19 at 0900, Until Discontinued, Routine Given 12/07/2019 8:20 PM [employer] GR[employer]ER 100 mg Right Arm Given 12/07/2019 1:16 PM [employer] GR[employer]ER 100 mg Right Deltoid-IM documented in this encounter
--- OUTSIDE RECORDS SUMMARY | 2019-12-25 06:21 | XMS REPORT | Summary of Care ---
:1980 Author Organization [facility] Address [address] [place] [address] Care Team Providers Name Role Phone Liv Khan Primary Care Provider Reason for Referral MRI/CAT Scan (STAT) Status Reason Specialty Diagnoses / Referred By Referred To Procedures Contact Contact New Request Diagnostic Diagnoses Generalized abdominal pain Yasmeen, Radiology Procedures CT ABDOMEN PELVIS WO CONTRAST Nilsa Harper MD [address] [place] [id number] Reason for Visit Reason Comments Abdominal Pain Vomiting Auth/Cert Status Reason Specialty Diagnoses / Referred By Referred To Procedures Contact Contact Emergency Medicine [facility] [address] [place] [phone] Encounter Details Date Type Department Care Team Description 12/22/2019 - Emergency [facility] Nilsa Arana Generalized abdominal pain (Primary Dx); 12/23/2019 Department MD Leroy Dehydration [address] [place] [phone] [id number] Allergies No Known Allergiesdocumented as of this encounter (statuses as of 12/23/2019) Medications Medication Sig Dispensed Refills Start Date End Date Status metoclopramide HCl 5 Take 5 mL by 473 mL 2 12/12/2019 Active mg/5 mL mouth 4 (four) solutionIndications: times daily. Intractable nausea and vomiting, Type 2 diabetes mellitus without complication, unspecified whether tank terminal gauger insulin use, Nephrotic syndrome sucralfate 1 gram Take 1 tablet by 120 tablet 3 12/12/2019 Active tabletIndications: mouth before Intractable nausea and meals and at vomiting, Type 2 bedtime. diabetes mellitus without complication, unspecified whether tank terminal gauger insulin use, Nephrotic syndrome erythromycin Take 4.5 mL by 200 mL 1 12/12/2019 Active ethylsuccinate 200 mg/5 mouth every 8 mL (eight) hours. suspensionIndications: Intractable nausea and vomiting, Type 2 diabetes mellitus without complication, unspecified whether mcc insulin use, Nephrotic syndrome ondansetron 4 mg Take 1 tablet by 60 tablet 2 12/12/2019 Active tabletIndications: mouth every 8 Intractable nausea and (eight) hours as vomiting needed for Nausea and Vomiting (N/V). diphenhydrAMINE 25 mg Take 1 tablet by 30 tablet 0 12/12/2019 Active tabletIndications: mouth at bedtime Intractable nausea and as needed vomiting, Type 2 (nausea). diabetes mellitus without complication, unspecified whether tank terminal gauger insulin use, Nephrotic syndrome amLODIPine 5 mg Take 1 tablet by 14 tablet 0 12/12/2019 Active tabletIndications: mouth daily. Intractable nausea and vomiting, Type 2 diabetes mellitus without complication, unspecified whether mcc insulin use, Nephrotic syndrome carvediloL 25 mg Take 1 tablet by 28 tablet 0 12/12/2019 Active tabletIndications: mouth 2 (two) Intractable nausea and times daily with vomiting, Type 2 meals. diabetes mellitus without complication, unspecified whether tank terminal gauger insulin use, Nephrotic syndrome diphenhydrAMINE 25 mg Take 1 tablet by 56 tablet 0 12/12/2019 Active tabletIndications: mouth 4 (four) Intractable nausea and times daily. vomiting, Type 2 diabetes mellitus without complication, unspecified whether mcc insulin use, Nephrotic syndrome pantoprazole 40 mg EC Take 1 tablet by 60 tablet 1 12/12/2019 Active tabletIndications: mouth 2 (two) Intractable nausea and times daily. vomiting, Type 2 diabetes mellitus without complication, unspecified whether mcc insulin use, Nephrotic syndrome Polyethylene Glycol Take 2 Packets 30 Packet 1 12/12/2019 Active 3350 17 gram by mouth daily. powderIndications: Intractable nausea and vomiting, Type 2 diabetes mellitus without complication, unspecified whether tank terminal gauger insulin use, Nephrotic syndrome insulin NPH 100 unit/mL inject 12 Units 2 Vial 0 12/13/2019 Active injectionIndications: under the skin Type 2 diabetes every morning. mellitus without complication, unspecified whether mcc insulin use insulin NPH 100 unit/mL inject 10 Units 2 Vial 0 12/12/2019 Active injectionIndications: under the skin Type 2 diabetes every evening. mellitus without complication, unspecified whether mcc insulin use insulin regular human inject 7 Units 2 Vial 0 12/12/2019 Active 100 unit/mL under the skin 2 injectionIndications: (two) times Type 2 diabetes daily before mellitus without breakfast and complication, dinner. unspecified whether tank terminal gauger insulin use traMADol 50 mg Take 1 tablet by 12 tablet 0 12/23/2019 Active tabletIndications: mouth every 6 Generalized abdominal (six) hours as pain needed for Pain (scale 1-3). proMETHazine 25 mg Take 1 tablet by 12 tablet 0 12/23/2019 Active tabletIndications: mouth every 6 Generalized abdominal (six) hours as pain needed for Nausea and Vomiting (N/V). 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 Previously taking po medication. 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 Rubella immune 05/07/2013 Candidiasis of vulva and vagina 05/07/2013 documented as of this encounter (statuses as of 12/23/2019) Immunizations Name Administration Dates Next Due Influenza [...] Sign Reading Time Taken Comments Blood Pressure 157/83 12/23/2019 1:59 AM TEAM FACILITATOR Pulse 94 12/23/2019 1:59 AM TEAM FACILITATOR Temperature 36.7 C (98 F) 12/23/2019 1:59 AM TEAM FACILITATOR Respiratory Rate 17 12/23/2019 1:59 AM TEAM FACILITATOR Oxygen Saturation 95% 12/23/2019 1:53 AM TEAM FACILITATOR Inhaled Oxygen Concentration - - Weight 61.2 kg (134 lb 14.7 oz) 12/22/2019 8:56 PM TEAM FACILITATOR Height - - Body Mass Index 24.68 12/04/2019 2:30 PM TEAM FACILITATOR documented in this encounter Discharge Instructions AttachmentsThe following attachments cannot be sent through Care Everywhere.Abdominal Pain, Adult (British)Gastroparesis, Diabetic (British) documented in this encounter Plan of Treatment Name Type Priority Associated Diagnoses Date/Time CT ABDOMEN PELVIS WO IMAGING STAT Generalized abdominal 12/23/2019 1:50 AM CONTRAST pain TEAM FACILITATOR Health Maintenance Due Date Last Done Comments VARICELLA VACCINES (1 of 2 - 1982 2-dose childhood series) EYE EXAM 1991 URINE MICROALBUMIN 1991 FOOT EXAM 1999 PAP SMEAR 05/07/2016 05/07/2013, 05/06/2012, 03/08/2011, Additional history exists HgA1C 05/07/2020 11/07/2019 PNEUMOCOCCAL 0-64 YEARS COMBINED 11/21/2020 11/21/2019 SERIES (2 of 3 - PCV13) LDL-C 12/03/2020 12/03/2019, 11/07/2019 CREATININE (SERUM) 12/22/2020 12/22/2019, 12/12/2019, 12/11/2019, Additional history exists DTaP,Tdap,and Td Vaccines (2 - Td) 12/11/2029 12/11/2019, 05/07/2009 INFLUENZA VACCINE Completed 11/21/2019 documented as of this encounter Procedures Procedure Name Priority Date/Time Associated Comments Diagnosis CBC WITH DIFFERENTIAL STAT 12/22/2019 11:28 Generalized Results for this PM TEAM FACILITATOR abdominal pain procedure are in the results section. CBC WITH DIFFERENTIAL Routine 12/22/2019 11:28 Generalized Results for this PM TEAM FACILITATOR abdominal pain procedure are in the results section. COMP. METABOLIC PANEL STAT 12/22/2019 11:28 Generalized Results for this (03879) PM TEAM FACILITATOR abdominal pain procedure are in the results section. TROPONIN I STAT 12/22/2019 11:28 Generalized Results for this PM TEAM FACILITATOR abdominal pain procedure are in the results section. LIPASE STAT 12/22/2019 11:28 Generalized Results for this PM TEAM FACILITATOR abdominal pain procedure are in the results section. POCT TEST ELIJAH 12/22/2019 11:05 Generalized Results for this PM TEAM FACILITATOR abdominal pain procedure are in the results section. URINALYSIS STAT 12/22/2019 11:04 Generalized Results for this PM TEAM FACILITATOR abdominal pain procedure are in the results section. GALV/CLC ONLY - URINE STAT 12/22/2019 11:03 Generalized Results for this DRUG (IMMUNOASSAY) - PM TEAM FACILITATOR abdominal pain procedure are in COMPREHENSIVE DRUG the results SCREEN section. EKG-12 LEAD STAT 12/22/2019 10:44 PM TEAM FACILITATOR POCT GLUCOSE Routine 12/22/2019 8:59 Results for this (AUTOMATED) PM TEAM FACILITATOR procedure are in the results section. documented in this encounter Results TROPONIN I (12/22/2019 11:28 PM TEAM FACILITATOR) TROPONIN I 0.004 <=0.034 ng/mL [facility] Specimen Blood - VENOUS Narrative Performed At Equal or Less than 0.034 ng/ml---Normal [facility] Note: Cardiac troponin [...] biotin. Performing Organization Address City/State/Zipcode Phone Number [facility] CLIA: [id number], [address] [place] [address] [facility] CBC WITH DIFFERENTIAL (12/22/2019 11:28 PM TEAM FACILITATOR) WBC 5.84 4.30 - 11.10 [facility] 10*3/L SERVICES RBC 2.95 (L) 3.93 - 5.25 [facility] 10*6/L SERVICES HGB 8.1 (L) 11.6 - 15.0 [facility] g/dL SERVICES HCT 25.5 (L) 35.7 - 45.2 % [facility] MCV 86.4 80.6 - 95.5 fL [facility] MCH 27.5 25.9 - 32.8 pg [facility] MCHC 31.8 31.6 - 35.1 [facility] g/dL SERVICES RDW-SD 39.8 39.0 - 49.9 fL [facility] RDW-CV 12.5 12.0 - 15.5 % [facility] PLT 271 166 - 358 [facility] 10*3/L SERVICES MPV 10.4 9.5 - 12.9 fL [facility] NRBC/100 WBC 0.0 0.0 - 10.0 /100 [facility] WBCs SERVICES NRBC x10^3 <0.01 10*3/L [facility] GRAN MAT (NEUT) % 65.7 % [facility] IMM GRAN % 0.20 % [facility] LYMPH % 21.9 % [facility] MONO % 7.7 % [facility] EOS % 3.6 % [facility] BASO % 0.9 % [facility] GRAN MAT x10^3(ANC) 3.84 1.88 - 7.09 [facility] 10*3/uL SERVICES IMM GRAN x10^3 <0.03 0.00 - 0.06 [facility] 10*3/uL SERVICES LYMPH x10^3 1.28 (L) 1.32 - 3.29 [facility] 10*3/uL SERVICES MONO x10^3 0.45 0.33 - 0.92 [facility] 10*3/uL SERVICES EOS x10^3 0.21 0.03 - 0.39 [facility] 10*3/uL SERVICES BASO x10^3 0.05 0.01 - 0.07 [facility] 10*3/uL SERVICES Specimen Blood - VENOUS Performing Organization Address City/State/Zipcode Phone Number [facility] CLIA: [id number], [address] [place] [address] [phone] [facility] LIPASE (12/22/2019 11:28 PM TEAM FACILITATOR) LIPASE 29 0 - 220 U/L [facility] Specimen Blood - VENOUS Performing Organization Address City/State/Zipcode Phone Number [facility] CLIA: [id number], [address] [place] [address] [phone] [facility] COMP. METABOLIC PANEL (11298) (12/22/2019 11:28 PM TEAM FACILITATOR) NA 133 (L) 135 - 145 [facility] mmol/L SERVICES K 4.7 3.5 - 5.0 [facility] mmol/L SERVICES CL 102 98 - 108 mmol/L [facility] CO2 TOTAL 20 (L) 23 - 31 mmol/L [facility] AGAP 11 2 - 16 [facility] BUN 23 7 - 23 mg/dL [facility] GLUCOSE 171 (H) 70 - 110 mg/dL [facility] CREATININE 2.37 (H) 0.50 - 1.04 [facility] mg/dL SERVICES TOTAL BILI 0.2 0.1 - 1.1 mg/dL [facility] CALCIUM 8.9 8.6 - 10.6 [facility] mg/dL SERVICES T PROTEIN 5.6 (L) 6.3 - 8.2 g/dL [facility] ALBUMIN 3.2 (L) 3.5 - 5.0 g/dL [facility] ALK PHOS 79 34 - 122 U/L [facility] ALTv 14 5 - 35 U/L [facility] AST(SGOT) 10 (L) 13 - 40 U/L [facility] eGFR Calculation 22.9 mL/min/1.73m2 [facility] (Non- SERVICES Dominican) eGFR Calculation 27.8 mL/min/1.73m2 [facility] () SERVICES Specimen Blood - VENOUS Narrative Performed At Association of Glomerular Filtration Rate (GFR) and Staging [facility] of Kidney Disease* [...] abnormalities in imaging tests). Performing Organization Address City/State/[facility] Phone Number [facility] CLIA: [id number], [address] [place] [phone] [facility] POCT TEST (12/22/2019 11:05 PM TEAM FACILITATOR) POCT PREG Negative On board controls acceptable Negative with C Line POCT PREG LOT # [id number] POCT PREG TEST DATE 06/27/2021 Specimen Urine - URINE, CLEAN CATCH URINALYSIS (12/22/2019 11:04 PM TEAM FACILITATOR) APPEARANCE Clear Clear [facility] COLOR Yellow Yellow [facility] PH 6.0 4.8 - 8.0 [facility] SP GRAVITY 1.012 1.003 - 1.030 [facility] GLU U QUAL 50 mg/dL (A) Normal [facility] BLOOD NegativeComment: Negative [facility] INTERFERENCE FROM SERVICES ASCORBIC ACID MAY CAUSE FALSE NEGATIVE RESULT KETONES 5 mg/dL (A) Negative [facility] PROTEIN 100 mg/dL (A) Negative [facility] UROBILIN Normal Normal [facility] BILIRUBIN Negative Negative [facility] NITRITE Negative Negative [facility] LEUK EDWARD Negative Negative [facility] RBC/HPF 1 0 - 3 HPF [facility] WBC/HPF 1 0 - 5 HPF [facility] BACTERIA Negative Negative [facility] AMORPHOUS Rare Rare HPF [facility] SQ EPITH 2 <=2 HPF [facility] HYAL CAST 1 <=2 LPF [facility] TRANS EPI <1 <=1 HPF [facility] Specimen Urine - URINE, CLEAN CATCH Performing Organization Address City/State/[facility] Phone Number [facility] CLIA: [id number], [address] [place] [phone] [facility] DRUG PANEL 2 URINE (12/22/2019 11:03 PM TEAM FACILITATOR) AMPHET Negative Negative [facility] VINOD U Negative Negative [facility] BENZO U Negative Negative [facility] Cocaine Metabolite Negative Negative [facility] METHADONE Negative Negative [facility] OPIATES Negative Negative [facility] PCP Negative Negative [facility] THC Negative Negative [facility] Specimen Urine - URINE, CLEAN CATCH Narrative Performed At Urine Drug Cutoff Ranges [facility] Cocaine: 150 ng/mL Benzodiazepines: 200 ng/mL Methadone: 300 ng/mL Amphetamine: 1,000 ng/mL Opiates: 300 ng/mL Cannabinoids: 50 ng/mL Phencyclidine: 25 ng/mL Barbiturates: 200 ng/mL The results are to be used only for medical (i.e., treatment) purposes. Unconfirmed screening results must not be used for non-medical purposes (e.g., employment testing, legal testing). Performing Organization Address City/[facility] Phone Number [facility] CLIA: [id number], [address] [place] [address] [phone] [facility] POCT GLUCOSE (AUTOMATED) (12/22/2019 8:59 PM TEAM FACILITATOR) POCT GLU 220 (H) 70 - 110 mg/dL [facility] Specimen Blood Performing Organization Address City/[facility] Phone Number [facility] CLIA: [id number], [address] [place] [phone] [facility] documented in this encounter Visit Diagnoses Diagnosis Generalized abdominal pain - Primary Abdominal pain, generalized Dehydration documented in this encounter Administered Medications Medication Order MAR Action Action Date Dose Rate Site metoclopramide HCl (REGLAN) Given 12/22/2019 11:35 PM TEAM FACILITATOR 10 mg injection 10 mg 10 mg, Slow IV Push, ONCE, 1 dose, 12/22/19 at 2330, ELIJAH morpHINE injection 4 mg Given 12/22/2019 11:35 PM TEAM FACILITATOR 4 mg 4 mg, Slow IV Push, ONCE, 1 dose, 12/22/19 at 2330, STAT NaCl 0.9% (NS) bolus infusion New Bag 12/22/2019 11:35 PM TEAM FACILITATOR 1,000 mL 999 mL/hr 1,000 mL at 999 mL/hr, 1,000 mL, IV Infusion, ONCE, 1 dose, 12/22/19 at 2330, STAT ondansetron (ZOFRAN) tablet 4 mg Given 12/23/2019 3:10 AM TEAM FACILITATOR 4 mg 4 mg, Oral, ONCE, 1 dose, Sat12/23/19 at 0400, Routine proMETHazine (PHENERGAN) Given 12/23/2019 3:10 AM TEAM FACILITATOR 25 mg Left Deltoid -IM injection 25 mg 25 mg, Intramuscular, ONCE, 1 dose, Sat12/23/19 at 0400, ELIJAH documented in this encounter Insurance Payer Benefit Plan / Subscriber ID Effective Phone Address Type Group Dates MEDICAID MEDICAID [facility] PENDING 2019-[address] [place] [address] (Work) [id number] documented as of this encounter"
--- OUTSIDE RECORDS SUMMARY | 2019-12-25 06:21 | XMS REPORT | Summary of Care ---
:1980 Author Organization [facility] Address [address] [place] [id number] Care Team Providers Name Role Phone Liv Khan Primary Care Provider Reason for Referral MRI/CAT Scan (STAT) Status Reason Specialty Diagnoses / Referred By Referred To Procedures Contact Contact New Request Diagnostic Diagnoses Generalized abdominal pain Yasmeen, Radiology Procedures CT ABDOMEN PELVIS WO CONTRAST Nilsa Harper MD [address] [place] [id number] Reason for Visit Reason Comments Abdominal Pain Vomiting Auth/Cert Status Reason Specialty Diagnoses / Referred By Referred To Procedures Contact Contact Emergency [facility] [address] [place] [phone] Encounter Details Date Type Department Care Team Description 12/22/2019 - Emergency [facility] Nilsa Arana Generalized abdominal 12/23/2019 Department MD Leroy pain (Primary Dx) [address] [place] [phone] [facility] [phone] Allergies No Known Allergiesdocumented as of this encounter (statuses as of 12/23/2019) Medications Medication Sig Dispensed Refills Start Date End Date Status metoclopramide HCl 5 Take 5 mL by 473 mL 2 12/12/2019 Active mg/5 mL mouth 4 (four) solutionIndications: times daily. Intractable nausea and vomiting, Type 2 diabetes mellitus without complication, unspecified whether bed bug exterminator insulin use, Nephrotic syndrome sucralfate 1 gram Take 1 tablet by 120 tablet 3 12/12/2019 Active tabletIndications: mouth before Intractable nausea and meals and at vomiting, Type 2 bedtime. diabetes mellitus without complication, unspecified whether halfway insulin use, Nephrotic syndrome erythromycin Take 4.5 mL by 200 mL 1 12/12/2019 Active ethylsuccinate 200 mg/5 mouth every 8 mL (eight) hours. suspensionIndications: Intractable nausea and vomiting, Type 2 diabetes mellitus without complication, unspecified whether halfway insulin use, Nephrotic syndrome ondansetron 4 mg [...] (nausea). diabetes mellitus without complication, unspecified whether bed bug exterminator insulin use, Nephrotic syndrome amLODIPine 5 mg Take 1 tablet by 14 tablet 0 12/12/2019 Active tabletIndications: mouth daily. Intractable nausea and vomiting, Type 2 diabetes mellitus without complication, unspecified whether bed bug exterminator insulin use, Nephrotic syndrome carvediloL 25 mg Take 1 tablet by 28 tablet 0 12/12/2019 Active tabletIndications: mouth 2 (two) Intractable nausea and times daily with vomiting, Type 2 meals. diabetes mellitus without complication, unspecified whether halfway insulin use, Nephrotic syndrome diphenhydrAMINE 25 mg Take 1 tablet by 56 tablet 0 12/12/2019 Active tabletIndications: mouth 4 (four) Intractable nausea and times daily. vomiting, Type 2 diabetes mellitus without complication, unspecified whether bed bug exterminator insulin use, Nephrotic syndrome pantoprazole 40 mg EC Take 1 tablet by 60 tablet 1 12/12/2019 Active tabletIndications: mouth 2 (two) Intractable nausea and times daily. vomiting, Type 2 diabetes mellitus without complication, unspecified whether halfway insulin use, Nephrotic syndrome Polyethylene Glycol Take 2 Packets 30 Packet 1 12/12/2019 Active 3350 17 gram by mouth daily. powderIndications: Intractable nausea and vomiting, Type 2 diabetes mellitus without complication, unspecified whether halfway insulin use, Nephrotic syndrome insulin NPH 100 unit/mL inject 12 Units 2 Vial 0 12/13/2019 Active injectionIndications: under the skin Type 2 diabetes every morning. mellitus without complication, unspecified whether bed bug exterminator insulin use insulin NPH 100 unit/mL inject 10 Units 2 Vial 0 12/12/2019 Active injectionIndications: under the skin Type 2 diabetes every evening. mellitus without complication, unspecified whether halfway insulin use insulin regular human inject 7 Units 2 Vial 0 12/12/2019 Active 100 unit/mL under the skin 2 injectionIndications: (two) times Type 2 diabetes daily before mellitus without breakfast and complication, dinner. unspecified whether bed bug exterminator insulin use traMADol 50 mg Take 1 tablet by 12 tablet 0 12/23/2019 Active tabletIndications: mouth every 6 Generalized abdominal (six) hours as pain needed for Pain (scale 1-3). 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 Previously taking po medication. ICD10 Diagnosis Term Bait Painter Utility Rubella immune 05/07/2013 Candidiasis of vulva [...] Comments Blood Pressure 157/83 12/23/2019 1:59 AM DEPUTY MANAGER Pulse 94 12/23/2019 1:59 AM DEPUTY MANAGER Temperature 36.7 C (98 F) 12/23/2019 1:59 AM DEPUTY MANAGER Respiratory Rate 17 12/23/2019 1:59 AM DEPUTY MANAGER Oxygen Saturation 95% 12/23/2019 1:53 AM DEPUTY MANAGER Inhaled Oxygen Concentration - - Weight 61.2 kg (134 lb 14.7 oz) 12/22/2019 8:56 PM DEPUTY MANAGER Height - - Body Mass Index 24.68 12/04/2019 2:30 PM DEPUTY MANAGER documented in this encounter Discharge Instructions AttachmentsThe following attachments cannot be sent through Care Everywhere.Abdominal Pain, Adult (Syriac)Gastroparesis, Diabetic (Syriac) documented in this encounter Plan of Treatment Name Type Priority Associated Diagnoses Date/Time CT ABDOMEN PELVIS WO IMAGING STAT Generalized abdominal 12/23/2019 1:50 AM CONTRAST pain DEPUTY MANAGER Health Maintenance Due Date Last Done Comments [...] 12/22/2019 11:28 Generalized Results for this PM DEPUTY MANAGER abdominal pain procedure are in the results section. CBC WITH DIFFERENTIAL Routine 12/22/2019 11:28 Generalized Results for this PM DEPUTY MANAGER abdominal pain procedure are in the results section. COMP. METABOLIC PANEL STAT 12/22/2019 11:28 Generalized Results for this (00897) PM DEPUTY MANAGER abdominal pain procedure are in the results section. TROPONIN I STAT 12/22/2019 11:28 Generalized Results for this PM DEPUTY MANAGER abdominal pain procedure are in the results section. LIPASE STAT 12/22/2019 11:28 Generalized Results for this PM DEPUTY MANAGER abdominal pain procedure are in the results section. POCT TEST ELIJAH 12/22/2019 11:05 Generalized Results for this PM DEPUTY MANAGER abdominal pain procedure are in the results section. URINALYSIS STAT 12/22/2019 11:04 Generalized Results for this PM DEPUTY MANAGER abdominal pain procedure are in the results section. GALV/CLC ONLY - URINE STAT 12/22/2019 11:03 Generalized Results for this DRUG (IMMUNOASSAY) - PM DEPUTY MANAGER abdominal pain procedure are in COMPREHENSIVE DRUG the results SCREEN section. EKG-12 LEAD STAT 12/22/2019 10:44 PM DEPUTY MANAGER POCT GLUCOSE Routine 12/22/2019 8:59 Results for this (AUTOMATED) PM DEPUTY MANAGER procedure are in the results section. documented in this encounter Results TROPONIN I (12/22/2019 11:28 PM DEPUTY MANAGER) TROPONIN I 0.004 <=0.034 ng/mL [facility] Specimen Blood - VENOUS Narrative Performed At Equal or Less than 0.034 ng/ml---Normal [facility] Note: Cardiac troponin begins to [...] biotin. Performing Organization Address City/State/Zipcode Phone Number [facility] CLIA: [id number], [address] [place], [place] [id number] [facility] CBC WITH DIFFERENTIAL (12/22/2019 11:28 PM DEPUTY MANAGER) WBC 5.84 4.30 - 11.10 [facility] 10*3/L SERVICES RBC 2.95 (L) 3.93 - 5.25 [facility] 10*6/L SERVICES HGB 8.1 (L) 11.6 - 15.0 [facility] g/dL SERVICES HCT 25.5 (L) 35.7 - 45.2 % [facility] MCV 86.4 80.6 - 95.5 fL [facility] MCH 27.5 25.9 - 32.8 pg [facility] MCHC 31.8 31.6 - 35.1 [facility] g/dL SERVICES RDW-SD 39.8 39.0 - 49.9 fL [facility] RDW-CV 12.5 12.0 - 15.5 % [facility] PLT 271 166 - 358 [facility] 10*3/L SERVICES MPV 10.4 9.5 - 12.9 fL [facility] NRBC/100 WBC 0.0 0.0 - 10.0 /100 [facility] WBCs SERVICES NRBC x10^3 <0.01 10*3/L [facility] GRAN MAT (NEUT) % 65.7 [...] VENOUS Performing Organization Address City/State/Zipcode Phone Number [facility] CLIA: [id number], [address] [place] [address] [phone] LIPASE (12/22/2019 11:28 PM DEPUTY MANAGER) LIPASE 29 0 - 220 U/L [facility] Specimen Blood - VENOUS Performing Organization Address City/State/Zipcode Phone Number [facility] CLIA: [id number], [address] [place] [address] [facility] COMP. METABOLIC PANEL (43241) (12/22/2019 11:28 PM DEPUTY MANAGER) NA 133 (L) 135 - 145 [facility] mmol/L SERVICES K 4.7 3.5 - 5.0 [facility] mmol/L SERVICES CL 102 98 - 108 mmol/L [facility] CO2 TOTAL 20 (L) 23 - 31 mmol/L [facility] AGAP 11 2 - 16 [facility] BUN 23 7 - 23 mg/dL [facility] GLUCOSE 171 (H) 70 - 110 mg/dL [facility] CREATININE 2.37 (H) 0.50 - 1.04 [facility] mg/dL SERVICES TOTAL BILI 0.2 0.1 - 1.1 mg/dL [facility] CALCIUM 8.9 8.6 - 10.6 [facility] mg/dL SERVICES T PROTEIN 5.6 (L) 6.3 - 8.2 g/dL [facility] ALBUMIN 3.2 (L) 3.5 - 5.0 g/dL [facility] ALK PHOS 79 34 - 122 U/L [facility] ALTv 14 5 - 35 U/L [facility] AST(SGOT) 10 (L) 13 - 40 U/L [facility] eGFR Calculation 22.9 mL/min/1.73m2 [facility] (Non- SERVICES [place]er) eGFR Calculation 27.8 mL/min/1.73m2 [facility] () SERVICES Specimen Blood - VENOUS Narrative Performed At Association of Glomerular Filtration Rate (GFR) and Staging [facility] of Kidney Disease* + [...] abnormalities in imaging tests). Performing Organization Address City/[facility] Centercode Phone Number [facility] CLIA: [id number], [address] [place] [phone] [facility] POCT TEST (12/22/2019 11:05 PM DEPUTY MANAGER) POCT PREG Negative On board controls acceptable Negative with C Line POCT PREG LOT # [id number] POCT PREG TEST DATE 06/27/2021 Specimen Urine - URINE, CLEAN CATCH URINALYSIS (12/22/2019 11:04 PM DEPUTY MANAGER) APPEARANCE Clear Clear [facility] COLOR Yellow Yellow [facility] PH 6.0 4.8 - 8.0 [facility] SP GRAVITY 1.012 1.003 - 1.030 [facility] GLU U QUAL 50 mg/dL (A) Normal [facility] BLOOD NegativeComment: Negative [facility] INTERFERENCE FROM SERVICES ASCORBIC ACID MAY CAUSE FALSE NEGATIVE RESULT KETONES 5 mg/dL (A) Negative [facility] PROTEIN 100 mg/dL (A) Negative [facility] UROBILIN Normal Normal [facility] BILIRUBIN Negative Negative [facility] NITRITE Negative Negative [facility] LEUK EDWARD Negative Negative [facility] RBC/HPF 1 0 - 3 HPF [facility] WBC/HPF 1 0 - 5 HPF [facility] BACTERIA Negative Negative [facility] AMORPHOUS Rare Rare HPF [facility] SQ EPITH 2 <=2 HPF [facility] HYAL CAST 1 <=2 LPF [facility] TRANS EPI <1 <=1 HPF [facility] Specimen Urine - URINE, CLEAN CATCH Performing Organization Address City/[facility]/Zipcode Phone Number [facility] CLIA: [id number], [address] [place] [phone] [facility] DRUG PANEL 2 URINE (12/22/2019 11:03 PM DEPUTY MANAGER) AMPHET Negative Negative [facility] VINOD U Negative Negative [facility] BENZO U Negative Negative [facility] Cocaine Metabolite Negative Negative [facility] METHADONE Negative Negative [facility] OPIATES Negative Negative [facility] PCP Negative Negative [facility] THC Negative Negative [facility] Specimen Urine - URINE, CLEAN CATCH Narrative Performed At Urine Drug Cutoff Ranges [facility] Cocaine: 150 ng/mL Benzodiazepines: 200 ng/mL Methadone: 300 ng/mL Amphetamine: 1,000 ng/mL Opiates: 300 ng/mL Cannabinoids: 50 ng/mL Phencyclidine: 25 ng/mL Barbiturates: 200 ng/mL The results are to be used only for medical (i.e., treatment) purposes. Unconfirmed screening results must not be used for non-medical purposes (e.g., employment testing, legal testing). Performing Organization Address City/[facility]/Zipcode Phone Number [facility] CLIA: [id number], [address] [place] [address] [facility] POCT GLUCOSE (AUTOMATED) (12/22/2019 8:59 PM DEPUTY MANAGER) POCT GLU 220 (H) 70 - 110 mg/dL [facility] Specimen Blood Performing Organization Address City/[facility] Centercoor Phone Number [facility] CLIA: [id number], [address] [place] [address] Only [place] documented in this encounter Visit Diagnoses Diagnosis Generalized abdominal pain - Primary Abdominal pain, generalized documented in this encounter Administered Medications Medication Order MAR Action Action Date Dose Rate Site metoclopramide HCl (REGLAN) Given 12/22/2019 11:35 PM DEPUTY MANAGER 10 mg injection 10 mg 10 mg, Slow IV Push, ONCE, 1 dose, 12/22/19 at 2330, ELIJAH morpHINE injection 4 mg Given 12/22/2019 11:35 PM DEPUTY MANAGER 4 mg 4 mg, Slow IV Push, ONCE, 1 dose, 12/22/19 at 2330, STAT NaCl 0.9% (NS) bolus infusion New Bag 12/22/2019 11:35 PM DEPUTY MANAGER 1,000 mL 999 mL/hr 1,000 mL at 999 mL/hr, 1,000 mL, IV Infusion, ONCE, 1 dose, 12/22/19 at 2330, STAT documented in this encounter Insurance Payer Benefit Plan / Subscriber ID Effective Phone Address Type Group Dates MEDICAID MEDICAID [place] PENDING [address] Pending [place] [address] (Work) [id number] documented as of this encounter"
--- OUTSIDE RECORDS SUMMARY | 2019-12-25 06:21 | XMS REPORT | Summary of Care ---
:1980 Author Organization [facility] Address [address] [place] [id number] Care Team Providers Name Role Phone Liv Khan Primary Care Provider Reason for Referral Radiology Services (STAT) Status Reason Specialty Diagnoses / Referred By Referred To Procedures Contact Contact New Request Diagnostic Diagnoses Nausea Washington Aceves, Radiology Procedures XR ABDOMEN ACUTE SERIES DIETITIAN [address] [address] Reason for Visit Reason Comments Abdominal Pain Auth/Cert Status Reason Specialty Diagnoses / Referred By Referred To Procedures Contact Contact Emergency Medicine Ed-Emergency Dept [address] [place] [phone] Encounter Details Date Type Department Care Team Description 12/24/2019 Emergency [facility] Darren Smith, DO [address] [facility] [id number] [place], [place] [id number] Gastroparesis (Primary Dx); Department Washington Aceves, [address] [address] Nausea; [address] [place] [address] Nausea and vomiting, intractability of vomiting not specified, [place] [address] Allergies No Known Allergiesdocumented as of this encounter (statuses as of 12/24/2019) Medications Medication Sig Dispensed Refills Start Date End Date Status metoclopramide HCl 5 Take 5 mL by 473 mL 2 12/12/2019 Active mg/5 mL mouth 4 (four) solutionIndications: times daily. Intractable nausea and vomiting, Type 2 diabetes mellitus without complication, unspecified whether continuous churn buttermaker insulin use, Nephrotic syndrome sucralfate 1 gram Take 1 tablet by 120 tablet 3 12/12/2019 Active tabletIndications: mouth before Intractable nausea and meals and at vomiting, Type 2 bedtime. diabetes mellitus without complication, unspecified whether continuous churn buttermaker insulin use, Nephrotic syndrome erythromycin Take 4.5 mL by 200 mL 1 12/12/2019 Active ethylsuccinate 200 mg/5 mouth every 8 mL (eight) hours. suspensionIndications: Intractable nausea and vomiting, Type 2 diabetes mellitus without complication, unspecified whether continuous churn buttermaker insulin use, Nephrotic syndrome ondansetron 4 mg [...] (nausea). diabetes mellitus without complication, unspecified whether continuous churn buttermaker insulin use, Nephrotic syndrome amLODIPine 5 mg Take 1 tablet by 14 tablet 0 12/12/2019 Active tabletIndications: mouth daily. Intractable nausea and vomiting, Type 2 diabetes mellitus without complication, unspecified whether continuous churn buttermaker insulin use, Nephrotic syndrome carvediloL 25 mg Take 1 tablet by 28 tablet 0 12/12/2019 Active tabletIndications: mouth 2 (two) Intractable nausea and times daily with vomiting, Type 2 meals. diabetes mellitus without complication, unspecified whether continuous churn buttermaker insulin use, Nephrotic syndrome diphenhydrAMINE 25 mg Take 1 tablet by 56 tablet 0 12/12/2019 Active tabletIndications: mouth 4 (four) Intractable nausea and times daily. vomiting, Type 2 diabetes mellitus without complication, unspecified whether continuous churn buttermaker insulin use, Nephrotic syndrome pantoprazole 40 mg EC Take 1 tablet by 60 tablet 1 12/12/2019 Active tabletIndications: mouth 2 (two) Intractable nausea and times daily. vomiting, Type 2 diabetes mellitus without complication, unspecified whether continuous churn buttermaker insulin use, Nephrotic syndrome Polyethylene Glycol Take 2 Packets 30 Packet 1 12/12/2019 Active 3350 17 gram by mouth daily. powderIndications: Intractable nausea and vomiting, Type 2 diabetes mellitus without complication, unspecified whether continuous churn buttermaker insulin use, Nephrotic syndrome insulin NPH 100 unit/mL inject 12 Units 2 Vial 0 12/13/2019 Active injectionIndications: under the skin Type 2 diabetes every morning. mellitus without complication, unspecified whether continuous churn buttermaker insulin use insulin NPH 100 unit/mL inject [...] without breakfast and complication, dinner. unspecified whether continuous churn buttermaker insulin use traMADol 50 mg Take 1 [...] as of this encounter (statuses as of 12/24/2019) Active Problems Problem Noted Date Intractable nausea and vomiting 11/15/2019 Intractable vomiting 11/07/2019 Vomiting 11/07/2019 General counseling and advice for contraceptive management 05/07/2013 Overview: ICD10 Diagnosis Term Bath Mixer Utility Encounter for routine gynecological examination 05/07/2013 Overview: ICD10 Diagnosis Term Bath Mixer Utility Type 2 diabetes mellitus without complications 05/07/2013 Overview: 05/07/2013- Diabetes x 10 years. Previously taking po medication. ICD10 Diagnosis Term Bath Mixer Utility Rubella immune 05/07/2013 Candidiasis of vulva and vagina 05/07/2013 documented as of this encounter (statuses as of 12/24/2019) Immunizations Name Administration Dates Next Due Influenza [...] Sign Reading Time Taken Comments Blood Pressure 155/83 12/24/2019 9:05 PM NOC TECHNICIAN Pulse 104 12/24/2019 9:05 PM NOC TECHNICIAN Temperature 36.6 C (97.9 F) 12/24/2019 9:05 PM NOC TECHNICIAN Respiratory Rate 20 12/24/2019 9:05 PM NOC TECHNICIAN Oxygen Saturation 98% 12/24/2019 9:05 PM NOC TECHNICIAN Inhaled Oxygen Concentration - - Weight 61.2 kg (134 lb 14.7 oz) 12/24/2019 3:43 PM NOC TECHNICIAN Height - - Body Mass Index 24.68 12/04/2019 2:30 PM NOC TECHNICIAN documented in this encounter Discharge Instructions Washington Scott FNP - 12/24/2019DIAGNOSIS 1. Gastroparesis NO LIFE-THREATENING FINDINGS ON TODAY'S EXAM. PROCEDURES IN THE ER TODAY: IV, labs, xray, emergency medical evaluation MEDICATIONS ADMINISTERED IN THE ER TODAY: Phenergan, Haldol YOUR PRESCRIPTIONS AND [id number] MEDICATION RECOMMENDATIONS: Continue taking medications a prescribed FOLLOW-UP RECOMMENDATIONS: RECOMMEND FOLLOW-UP WITH A PRIMARY CARE PROVIDER OR SPECIALIST IN 2-5 DAYS, ESPECIALLY IF NO IMPROVEMENT IN SYMPTOMS. MAY FOLLOW-UP WITH A PROVIDER OF YOUR CHOICE, SUCH : 1. A PHYSICIAN OF YOUR CHOICE 2. [facility], . LOCATIONS IN [facility] 3. [facility], [address] [place] [address]; [phone] OR, IF YOU WISH TO FOLLOW-UP WITHIN THE [facility], MAY TRY THESE OPTIONS (CLINIC APPOINTMENTS AVAILABLE ON [id number] BASIS): 1. SCHEDULE AN APPOINTMENT ONLINE AT [email or web address] 2. OR CALL THE [facility] ACCESS CENTER AT OR 3. OR CALL YOUR [facility] PHYSICIAN'S OFFICE DIRECTLY IF YOU ARE ALREADY AN ESTABLISHED [facility] PATIENT. RETURN TO ER FOR WORSENING OF SYMPTOMS. AttachmentsThe following attachments cannot be sent through Care Everywhere.Digestive System,Anatomy of the (Omani)Gastroparesis (Omani) documented in this encounter Plan of Treatment Name Type Priority Associated Diagnoses Date/Time XR ABDOMEN ACUTE SERIES IMAGING STAT Nausea 12/24/2019 8:39 PM NOC TECHNICIAN Health Maintenance Due Date Last Done Comments [...] Procedure Name Priority Date/Time Associated Diagnosis Comments XR ABDOMEN ACUTE SERIES STAT 12/24/2019 8:39 PM NOC TECHNICIAN Nausea Procedure Note - [facility], Radiant Results Inft User - 12/24/2019 8:44 PM NOC TECHNICIAN XR ABDOMEN ACUTE SERIES Comparison: 10/09/2019 History: vomiting Findings: Small bilateral pleural effusions with adjacent atelectasis. The remaining lungs are clear. The heart is normal in size. No acute osseous abnormality. Cholecystectomy clips are present. The bowel gas pattern is nonobstructive. No abnormal calcifications. IMPRESSION Small bilateral pleural effusions. Nonobstructive bowel gas pattern. Preliminary Report Dictated by Resident: Thomas Kumar POCT TEST ELIJAH 12/24/2019 8:24 PM NOC TECHNICIAN Nausea URINALYSIS STAT 12/24/2019 8:24 PM NOC TECHNICIAN Nausea TROPONIN I STAT 12/24/2019 7:52 PM NOC TECHNICIAN Nausea EKG-12 LEAD STAT 12/24/2019 7:35 PM NOC TECHNICIAN CBC WITH DIFFERENTIAL STAT 12/24/2019 5:37 PM NOC TECHNICIAN Nausea CBC WITH DIFFERENTIAL Routine 12/24/2019 5:37 PM NOC TECHNICIAN Nausea BASIC METABOLIC PANEL STAT 12/24/2019 5:37 PM NOC TECHNICIAN Nausea Results for this (NA, K, CL, CO2, GLUCOSE, procedure are in the BUN, CREATININE, CA) results section. HEPATIC FUNCTION PANEL STAT 12/24/2019 5:37 PM NOC TECHNICIAN Nausea Results for this (01529) (ALB,T.PRO,BILI procedure are in the T,BU/BC,ALT,AST,ALK PHOS) results section. LIPASE STAT 12/24/2019 5:37 PM NOC TECHNICIAN Nausea documented in this encounter Results POCT TEST (12/24/2019 8:24 PM NOC TECHNICIAN) POCT PREG negative On board controls acceptable present with C Line POCT PREG LOT # [id number] POCT PREG TEST DATE 03/27/2021 Specimen Urine - URINE, CLEAN CATCH Urinalysis (12/24/2019 8:24 PM NOC TECHNICIAN) APPEARANCE Cloudy (A) Clear [facility] COLOR Yellow Yellow [facility] PH 5.0 4.8 - 8.0 [facility] SP GRAVITY 1.012 1.003 - 1.030 [facility] GLU U QUAL 150 mg/dL (A) Normal [facility] BLOOD 1+ (A) Negative [facility] KETONES 5 mg/dL (A) Negative [facility] PROTEIN 500 mg/dL (A) Negative [facility] UROBILIN Normal Normal [facility] BILIRUBIN Negative Negative [facility] NITRITE Negative Negative [facility] LE[place] EDWARD 25/uL (A) Negative [facility] RBC/HPF 5 (H) 0 - 3 HPF [facility] WBC/HPF 7 (H) 0 - 5 HPF [facility] BACTERIA Few (A) Negative [facility] MUCOUS Slight (A) Negative LPF [facility] SQ EPITH 3 (H) <=2 HPF [facility] HYAL CAST 6 (H) <=2 LPF [facility] Specimen Urine - URINE, CLEAN CATCH Performing Organization Address City/[facility]/Zipcode Phone Number [facility] CLIA: [id number], [address] [place] [phone] [facility] TROPONIN I (12/24/2019 7:52 PM NOC TECHNICIAN) TROPONIN I 0.007 <=0.034 ng/mL [facility] Specimen Blood - VENOUS Narrative Performed At Equal or Less than 0.034 ng/ml---Normal [facility] Note: Cardiac [...] patient's use of biotin. Performing Organization Address [facility] Cent[facility]ode Phone Number [facility] CLIA: [id number], [address] [place] [phone] [facility] CBC WITH DIFFERENTIAL (12/24/2019 5:37 PM NOC TECHNICIAN) WBC 7.67 4.30 - 11.10 [facility] 10*3/L SERVICES RBC 3.26 (L) 3.93 - 5.25 [facility] 10*6/L SERVICES HGB 8.9 (L) 11.6 - 15.0 [facility] g/dL SERVICES HCT 28.3 (L) 35.7 - 45.2 % [facility] MCV 86.8 80.6 - 95.5 fL [facility] MCH 27.3 25.9 - 32.8 pg [facility] MCHC 31.4 (L) 31.6 - 35.1 [facility] g/dL SERVICES RDW-SD 39.9 39.0 - 49.9 fL [facility] RDW-CV 12.5 12.0 - 15.5 % [facility] PLT 341 166 - 358 [facility] 10*3/L SERVICES MPV 10.0 9.5 - 12.9 fL [facility] NRBC/100 WBC 0.0 0.0 - 10.0 /100 [facility] WBCs SERVICES NRBC x10^3 <0.01 10*3/L [facility] GRAN MAT (NEUT) % 77.0 % [facility] IMM GRAN % 0.30 % [facility] LYMPH % 13.0 % [facility] MONO % 6.5 % [facility] EOS % 2.3 % [facility] BASO % 0.9 % [facility] GRAN MAT x10^3(ANC) 5.90 1.88 - 7.09 [facility] 10*3/uL SERVICES IMM GRAN x10^3 <0.03 0.00 - 0.06 [facility] 10*3/uL SERVICES LYMPH x10^3 1.00 (L) 1.32 - 3.29 [facility] 10*3/uL SERVICES MONO x10^3 0.50 0.33 - 0.92 [facility] 10*3/uL SERVICES EOS x10^3 0.18 0.03 - 0.39 [facility] 10*3/uL SERVICES BASO x10^3 0.07 0.01 - 0.07 [facility] 10*3/uL SERVICES Specimen Blood - VENOUS Performing Organization Address City/[facility]/Zipcode Phone Number [facility] CLIA: [id number], [address] [place], [place] [address] [phone] [facility] Lipase Serum (12/24/2019 5:37 PM NOC TECHNICIAN) LIPASE 23 0 - 220 U/L [facility] Specimen Blood - VENOUS Performing Organization Address City/[facility]/Zipcode Phone Number [facility] CLIA: [id number], [address] [place] [phone] [facility] Hepatic Function Panel (ALB, T.PRO, BILI T, BU/BC, ALT, AST, ALK PHOS) (2019 5:37 PM NOC TECHNICIAN) TOTAL BILI 0.4 0.1 - 1.1 mg/dL [facility] BILI UNCON 0.2 0.1 - 1.1 mg/dL [facility] BILI CONJ 0.0 0.0 - 0.3 mg/dL [facility] T PROTEIN 6.3 6.3 - 8.2 g/dL [facility] ALBUMIN 3.8 3.5 - 5.0 g/dL [facility] ALK PHOS 89 34 - 122 U/L [facility] ALTv 14 5 - 35 U/L [facility] AST(SGOT) 13 13 - 40 U/L [facility] Specimen Blood - VENOUS Performing Organization Address City/State/Zipcode Phone Number [facility] CLIA: [id number], [address] [place] [address] [phone] [facility] Basic Metabolic Panel (NA, K, CL, CO2, GLUCOSE, BUN, CREATININE, CA) (2019 5:37 PM NOC TECHNICIAN) NA 134 (L) 135 - 145 [facility] mmol/L SERVICES K 4.8 3.5 - 5.0 [facility] mmol/L SERVICES CL 101 98 - 108 mmol/L [facility] CO2 TOTAL 19 (L) 23 - 31 mmol/L [facility] AGAP 14 2 - 16 [facility] BUN 18 7 - 23 mg/dL [facility] GLUCOSE 197 (H) 70 - 110 mg/dL [facility] CREATININE 2.32 (H) 0.50 - 1.04 [facility] mg/dL SERVICES CALCIUM 9.4 8.6 - 10.6 [facility] mg/dL SERVICES eGFR Calculation 23.5 mL/min/1.73m2 [facility] (Non- SERVICES Faroese) eGFR Calculation 28.5 mL/min/1.73m2 [facility] () SERVICES Specimen Blood - VENOUS Narrative Performed At Association of Glomerular Filtration Rate (GFR) and Staging [facility] of Kidney [...] tests). Performing Organization Address City/State/Zipcode Phone Number [facility] CLIA: [id number], [address] [place] [address] [facility] documented in this encounter Visit Diagnoses Diagnosis Gastroparesis - Primary Nausea Nausea alone Nausea and vomiting, intractability of vomiting not specified, unspecified vomiting type documented in this encounter Administered Medications Medication Order MAR Action Action Date Dose Rate Site haloperidol lactate (HALDOL) Given 12/24/2019 6:18 PM NOC TECHNICIAN 5 mg injection 5 mg 5 mg, Intravenous, ONCE, 1 dose, Misti 12/24/19 at 1915, STAT NaCl 0.9% (NS) bolus infusion 250 New Bag 12/24/2019 6:18 PM NOC TECHNICIAN 250 mL 999 mL/hr mL at 999 mL/hr, 250 mL, IV Infusion, ONCE, 1 dose, Misti 12/24/19 at 1915, STAT documented in this encounter Insurance Payer Benefit Plan / Subscriber ID Effective Phone Address Type Group Dates MEDICAID MEDICAID [facility] PENDING 2019-[address] Pending [place] [address] (Work) [id number] documented as of this encounter"
[2019-12-25] MEDS ORDERED: METOCLOPRAMIDE 10 MG/2mL INJ ONE (06:50)
[2019-12-25] MEDS ORDERED: NA CHLORIDE 0.9% 100 ML IV ONE (06:51)
[2019-12-25] MEDS ORDERED: LORazepam 2 MG/ML VIAL ONE (06:51)
[2019-12-25] MEDS ORDERED: DIPHENHYDRAMINE 50 MG/ML VIAL ONE (06:51)
[2019-12-25 07:16] LABS: Absolute Lymphocytes (CBC) 0.4 K/uL (0.7-4.9); Basophils % 0.7 % (0-1.3); Hematocrit 24.3 % (36.0-45.0); Lymphocytes % 5.1 % (15.3-44.8); MPV 8.7 fL (7.6-11.3); RBC Red Blood Cell Count 2.86 M/uL (3.86-4.86)
[2019-12-25 07:28] LABS: Protime INR 1.16
[2019-12-25 07:46] LABS: Albumin 2.8 g/dL (3.4-5.0); Bilirubin Direct 0.1 mg/dL (0-0.2); Bilirubin Total 0.3 mg/dL (0.2-1.0); Potassium 4.7 mmol/L (3.5-5.1); Protein, Total 6.1 g/dL (6.4-8.2)
[2019-12-25 07:48] LABS: Magnesium 2.1 mg/dL (1.8-2.4); Troponin (Emerg Dept Use Only) < 0.02 ng/mL (0.0-0.045)
[2019-12-25] MEDS ORDERED: NA CHLORIDE 0.9% 500 ML ONE (08:06)
[2019-12-25 08:36] LABS: Arterial Blood Carboxyhemoglob 1.7 % (0-1.5); Blood Gas Oxyhemoglobin 90.6 % (94-97); Blood O2 Saturation 92.9 % (92-98.5)
--- NOTE | 2019-12-25 08:57 | RAD REPORT ---
EXAM DESCRIPTION: CT - Abdomen Pelvis Wo Contrast - 12/25/2019 8:42 am CLINICAL HISTORY: abdominal pain, vomiting COMPARISON: [facility] Protocol dated 10/23/2019; Abdomen Acute Series dated 10/30/2019 TECHNIQUE: Axial [address] imaging of the abdomen and pelvis was performed without IV contrast. No IV contrast was given because of allergy, abnormal renal function, patient refusal or physician re quest. No oral contrast administered. All CT scans are performed using dose optimization technique as appropriate and may include automated exposure control or mA/KV adjustment according to patient size. FINDINGS: Moderate-sized bilateral pleural effusions are present increased slightly on the right. Pe ricardial effusion is present 8 mm in thickness increased from comparison. Partial atelectasis seen i n each lower lobe. Liver and spleen show no suspicious findings on noncontrast study. Cholecystectomy clips are present with no biliary tree dilatation. Pancreas is small. No acute pancreatic process seen. No hydronephrosis or suspicious renal mass. No significant adrenal finding. Isodense renal masses an d pyelonephritis cannot be excluded in the absence of IV contrast. No bladder wall thickening or mass . No bladder stone. Uterus and ovaries show no suspicious findings. No gastric dilatation or wall thickening evident. No small bowel dilatation. Colon is mostly decompre ssed which accentuates overall wall thickness. There is limited ability to assess in the mild colitis . No appendicitis findings. No free air or pneumatosis. Patient has a moderate amount of fluid retention in the subcutaneous fa tty tissues. Patient has very minimal common non drainable ascites. No hernia, mass or bulky lymphade nopathy. No suspicious bony findings. IMPRESSION: Mild to moderate severity fluid retention pattern with edema throughout the subcutaneous fatty tissues of the abdomen and pelvis, moderate-size bilateral pleural effusions and a minimal corinna unt of ascites. No obstruction, free air or surgically emergent finding. Colon is mostly decompressed which accentuates wall thickness. No mass lesions seen. Mild colitis can not be excluded. Full assessment is limited is the absence of IV contrast.
[2019-12-25 09:27] LABS: Urine Blood 2+ (NEG); Urine Glucose 2+ (NEG); Urine Protein 3+ (NEG); Urine Specific Gravity 1.025 (1.005-1.030)
--- NOTE | 2019-12-25 09:36 | EDPHYS ---
Physician Documentation [facility] Name: Mercedes Marin Age: 39 yrs Sex: Female : 1980 Arrival Date: 12/25/2019 Time: 06:07 Bed 17 Private MD: ED Physician Luis Eduardo Sun HPI: 12/25 06:30 This 39 yrs old Female presents to ER via Ambulatory with complaints of jmm Abdominal Pain. 06:30 The patient presents with abdominal pain. Onset: The symptoms/episode began/occurred jmm gradually, 1 day(s) ago. The symptoms do not radiate. Associated signs and symptoms: Pertinent positives: nausea. The symptoms are described as achy. Modifying factors: The symptoms are alleviated by nothing, the symptoms are aggravated by nothing. This is a 39 year old female with a history of DM, HTN, pancreatitis that presents to the ED with complaints of abdominal pain, nausea, beginning yesterday. states the patient was seen in [place] for the same episode.. 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 - Social history:: Smoking status: Patient/guardian denies using. ROS: 06:30 Constitutional: Negative for fever, chills, and weight loss, Cardiovascular: Negative jmm for chest pain, palpitations, and edema, Respiratory: Negative for shortness of breath, cough, wheezing, and pleuritic chest pain. 06:30 Abdomen/GI: Positive for abdominal pain, nausea, Negative for vomiting, diarrhea. 06:30 All other systems are negative. Exam: 06:30 Constitutional: This is a well developed, well nourished patient who is awake, alert, jmm and in no acute distress. Head/Face: atraumatic. Eyes: EOMI, no conjunctival erythema appreciated ENT: Moist Mucus Membranes Neck: Trachea midline, Supple Chest/axilla: Normal chest wall appearance and motion. Cardiovascular: Regular rate and rhythm. No edema appreciated Respiratory: Normal respirations, no respiratory distress appreciated 06:30 Back: Normal ROM Skin: General appearance color normal MS/ Extremity: Moves all extremities, no obvious deformities appreciated, no edema noted to the lower extremities Neuro: Awake and alert, normal gait Psych: Behavior is normal, Mood is normal, Patient is cooperative and pleasant 06:30 Abdomen/GI: Inspection: abdomen appears normal, Bowel sounds: normal, Palpation: soft, mild abdominal tenderness, in all quadrants. Vital Signs: 06:14 BP 166 / 92; Pulse 114; Resp 18; Temp 97.8; Pulse Ox 100% ; Weight 65.77 kg; Height 5 wh ft. 2 in. (157.48 cm); Pain 9/10; 07:50 BP 147 / 81; Pulse 106; Resp 14 S; Temp 98.2(O); Pulse Ox 95% on R/A; Pain 2/10; aa5 09:02 BP 154 / 88; Pulse 112; Resp 17 S; Pulse Ox 93% on R/A; ca1 09:52 BP 168 / 90; Pulse 112; Resp 18 S; Pulse Ox 94% on R/A; ca1 10:58 BP 152 / 85; Pulse 111; Resp 18 S; Pulse Ox 97% on R/A; ca1 06:14 Body Mass Index 26.52 (65.77 kg, 157.48 cm) MDM: 06:16 Patient medically screened. [facility] 09:32 Data reviewed: vital signs, nurses notes. Counseling: I had a detailed discussion with [facility] the patient and/or guardian regarding: the historical points, exam findings, and any diagnostic results supporting the discharge/admit diagnosis, lab results, radiology results, the need for further work-up and treatment in the hospital. ED course: Patient remains tachycardic, pericardial effusion noted on CT, admitted for further evaluation by cardiology. I discussed the patient with Dr. lomax whom accepted admission. . 12/25 06:27 Order name: Basic Metabolic Panel; Complete Time: 07:54 [facility] 12/25 06:27 Order name: CBC with Diff; Complete Time: 10:44 [facility] 12/25 06:27 Order name: Creatinine for Radiology; Complete Time: 07:54 [facility] 12/25 06:27 Order name: Hepatic Function; Complete Time: 07:54 [facility] 12/25 06:27 Order name: Lipase; Complete Time: 07:54 [facility] 12/25 06:27 Order name: Procalcitonin; Complete Time: 07:57 [facility] 12/25 06:27 Order name: Lactate; Complete Time: 07:54 [facility] 12/25 06:27 Order name: Blood Culture Adult (2) [facility] 12/25 06:41 Order name: Troponin (emerg Dept Use Only); Complete Time: 07:54 [facility] 12/25 06:41 Order name: Magnesium; Complete Time: 07:54 [facility] 12/25 06:50 Order name: PT-INR; Complete Time: 07:54 [facility] 12/25 07:28 Order name: Type And Screen; Complete Time: 10:00 [facility] 12/25 07:50 Order name: Occult Blood--Ancillary pending sale to [facility] 12/25 07:55 Order name: ABG; Complete Time: 08:45 [facility] 12/25 08:33 Order name: Urine Dipstick--Ancillary (enter results); Complete Time: 09:30 pending sale to [facility] 12/25 08:33 Order name: Urine --Ancillary (enter results); Complete Time: 09:30 pending sale to [facility] 12/25 10:10 Order name: Thyroid Stimulating Hormone [facility] 12/25 10:10 Order name: Urinalysis [facility] 12/25 10:10 Order name: CBC with Automated Diff [facility] 12/25 10:10 Order name: CBC with Automated Diff [facility] 12/25 10:10 Order name: Comprehensive Metabolic Panel [facility] 12/25 10:10 Order name: Comprehensive Metabolic Panel [facility] 12/25 10:10 Order name: Magnesium [facility] 12/25 10:10 Order name: Magnesium [facility] 12/25 10:10 Order name: Phosphorus [facility] 12/25 10:10 Order name: Phosphorus [facility] 12/25 10:10 Order name: Troponin I [facility] 12/25 10:10 Order name: Troponin I [facility] 12/25 10:10 Order name: Troponin I [facility] 12/25 10:10 Order name: Troponin I [facility] 12/25 06:27 Order name: IV Saline Lock; Complete Time: 07:12 [facility] 12/25 06:27 Order name: Labs collected and sent; Complete Time: 07:12 [facility] 12/25 07:56 Order name: CT Abd/Pelvis - Without Contrast; Complete Time: 09:00 [facility] 12/25 08:06 Order name: Urine Test (obtain specimen); Complete Time: 08:25 [facility] 12/25 08:10 Order name: Urine Dipstick-Ancillary (obtain specimen); Complete Time: 08:25 [facility] 12/25 08:27 Order name: Straight Cath - Urine; Complete Time: 08:27 [facility] 12/25 08:45 Order name: PO challenge; Complete Time: 09:02 [facility] 12/25 09:01 Order name: EKG - Nurse/Tech; Complete Time: 09:21 [facility] 12/25 09:05 Order name: Echo without doppler (2D) [facility] 12/25 10:10 Order name: CONS Physician Consult [facility] 12/25 10:10 Order name: Heart Healthy [facility] 12/25 10:42 Order name: CBC Smear Scan; Complete Time: 10:44 EDMS Administered Medications: 07:07 Drug: Ativan 1 mg Route: IVP; Site: left upper arm; wh 07:09 Drug: diphenhydrAMINE 25 mg Route: IVP; Site: left antecubital; wh 07:11 Drug: Reglan 10 mg Route: IVP; Site: left upper arm; wh 09:24 Follow up: Response: No adverse reaction; Nausea is decreased aa5 08:02 Drug: NS 0.9% 500 ml Route: IV; Rate: bolus; Site: left upper arm; aa5 09:00 Follow up: Response: No adverse reaction; IV Status: Completed infusion aa5 11:12 Drug: Zofran (Ondansetron) 4 mg Route: IVP; Site: left upper arm; ca1 Disposition: 12/25/19 09:34 Hospitalization ordered by Hardeep Lomax for Observation. Preliminary diagnosis are Tachycardia, unspecified, Pericardial effusion (noninflammatory), Pleural effusion, not elsewhere classified, Anemia, Other abdominal pain, Hyperglycemia, unspecified. - Bed requested for Telemetry/MedSurg (observation). - Status is Observation. ca1 - Condition is Stable. - Problem is an acute exacerbation. - Symptoms have improved. Addendum: 12/27/2019 19:02 Co-signature as Attending Physician, Luis Eduardo eckert Signatures: Dispatcher [employer] [facility] Ronda Billy RN RN dw Lam, Pin, MD MD pkl Mickail, Joel, PA PA [facility] Jaye Irizarry, RN RN aa5 Jade Franklin Cheryl, RN RN ca1 Corrections: (The following items were deleted from the chart) 12/25 08:12 06:30 Associated signs and symptoms: Pertinent positives: nausea and vomiting, barbara [facility] 08: 06:30 This is a 39 year old female with a history of DM, HTN, pancreatitis that barbara presents to the ED with complaints of abdominal pain, vomiting, beginning yesterday. states the patient was seen in [place] for the same episode.. [facility] 06:30 Abdomen/GI: Positive for abdominal pain, nausea and vomiting, [facility] 09:34 Hospitalization Ordered by Hardeep Lomax MD for Observation. Preliminary dw diagnosis is Tachycardia, unspecified; Pericardial effusion (noninflammatory); Pleural effusion, not elsewhere classified; Anemia; Other abdominal pain; Hyperglycemia, unspecified. Bed requested for Telemetry/MedSurg (observation). Status is Observation. Condition is Stable. Problem is an acute exacerbation. Symptoms have improved. [facility] 11:22 10:31 12/25/2019 09:34 Hospitalization Ordered by Hardeep Lmoax MD for Observation. ca1 Preliminary diagnosis is Tachycardia, unspecified; Pericardial effusion (noninflammatory); Pleural effusion, not elsewhere classified; Anemia; Other abdominal pain; Hyperglycemia, unspecified. Bed requested for Telemetry/MedSurg (observation). Status is Observation. Condition is Stable. Problem is an acute exacerbation. Symptoms have improved. dw
--- NOTE | 2019-12-25 09:36 | ER ---
Nurse's Notes [facility] Name: Mercedes Marin Age: 39 yrs Sex: Female : 1980 Arrival Date: 12/25/2019 Time: 06:07 Bed 17 Private MD: Diagnosis: Tachycardia, unspecified;Pericardial effusion (noninflammatory);Pleural effusion, not elsewhere classified;Anemia;Other abdominal pain;Hyperglycemia, unspecified Presentation: 12/25 06:14 Chief complaint: Patient states: abdominal pain and vomiting that started last night. states Pt was seen at [place] yesterday for same complaints. Coronavirus screen: The patient has NOT traveled to [place] in the past 14 days. Ebola Screen: Patient negative for fever greater than or equal to 101.5 degrees Fahrenheit, and additional compatible Ebola Virus Disease symptoms Patient denies exposure to infectious person. Initial Sepsis Screen: Does the patient meet any 2 criteria? HR > 90 bpm. Does the patient have a suspected source of infection? Yes: Acute abdominal pain. Risk Assessment: Do you want to hurt yourself or someone else? Patient reports no desire to harm self or others. 06:14 Method Of Arrival: Ambulatory 06:14 Acuity: ALONDRA 3 06:29 Onset of symptoms was December 24, 2019. 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 - Social history:: Smoking status: Patient/guardian denies using. Screenin:21 Abuse screen: Denies threats or abuse. Denies injuries from another. Nutritional screening: No deficits noted. Tuberculosis screening: No symptoms or risk factors identified. Fall Risk None identified. Assessment: 06:26 General: Appears in no apparent distress. uncomfortable, Behavior is calm, cooperative, appropriate for age. Pain: Complains of pain in epigastric area, right upper quadrant and left upper quadrant Pain does not radiate. Pain currently is 9 out of 10 on a pain scale. Pain began 1 day ago. Neuro: Level of Consciousness is awake, alert, obeys commands, Oriented to person, place, time, situation, Appropriate for age. Cardiovascular: Heart tones S1 S2. Respiratory: Airway is patent Respiratory effort is even, unlabored, Respiratory pattern is regular, symmetrical, Breath sounds are clear bilaterally. GI: Abdomen is flat, non-distended, Bowel sounds Abd is soft Abdomen is tender to palpation in epigastric area, right upper quadrant and left upper quadrant Reports upper abdominal pain, vomiting. : No signs and/or symptoms were reported regarding the genitourinary system. EENT: No signs and/or symptoms were reported regarding the EENT system. Derm: Skin is intact, is healthy with good turgor, Skin is pink, warm \T\ dry. normal. Musculoskeletal: Circulation, motion, and sensation intact. 07:05 Reassessment: Bedside report received from WALDEMAR Hansen. Pt currently sitting up in bed, aa5 c/o abd pain 10/10 on a pain scale. Equal and unlabored respirations, skin is pale/warm/dry. Pt reports nausea, denies vomiting/diarrhea. 2+ pitting edema noted to lilian ankles. . 07:50 Reassessment: Pt resting in bed with eyes closed, pt states feeling better, pain is aa5 decreased. Pt is drowsy but arouses to verbal stimuli. Equal and unlabored respirations, skin is pale/warm/dry. . 08:25 Reassessment: Type and screen drawn and sent to lab. . aa5 08:25 Reassessment: Pt resting in bed with eyes closed, pt less drowsy than previous aa5 assessment. Pt A\T\O x 4, equal and unlabored respirations, skin is pale/warm/dry. Bed remains in low position, side rails x 2, call day within reach. Pt awaiting ABG and CT scan to be completed, pt notified of wait time. . 08:26 Reassessment: RT at bedside to collect ABG. . aa5 09:02 Reassessment: Patient appears in no apparent distress at this time. Patient and/or ca1 family updated on plan of care and expected duration. Pain level reassessed. Patient is alert, oriented x 3, equal unlabored respirations, skin warm/dry/pink. Juice given for PO challenge. 09:21 Reassessment: PO challenge completed and tolerated. No reports of N/V at this time. aa5 09:52 Reassessment: Patient appears in no apparent distress at this time. Patient and/or ca1 family updated on plan of care and expected duration. Pain level reassessed. Patient is alert, oriented x 3, equal unlabored respirations, skin warm/dry/pink. Dr. Andrews at bedside. 10:58 Reassessment: Patient appears in no apparent distress at this time. Patient and/or ca1 family updated on plan of care and expected duration. Pain level reassessed. Patient is alert, oriented x 3, equal unlabored respirations, skin warm/dry/pink. 11:11 Reassessment: Pt c/o N/V. Notified provider. Meds ordered and given. ca1 Vital Signs: 06:14 BP 166 / 92; Pulse 114; Resp 18; Temp 97.8; Pulse Ox 100% ; Weight 65.77 kg; Height 5 wh ft. 2 in. (157.48 cm); Pain 9/10; 07:50 BP 147 / 81; Pulse 106; Resp 14 S; Temp 98.2(O); Pulse Ox 95% on R/A; Pain 2/10; aa5 09:02 BP 154 / 88; Pulse 112; Resp 17 S; Pulse Ox 93% on R/A; ca1 09:52 BP 168 / 90; Pulse 112; Resp 18 S; Pulse Ox 94% on R/A; ca1 10:58 BP 152 / 85; Pulse 111; Resp 18 S; Pulse Ox 97% on R/A; ca1 06:14 Body Mass Index 26.52 (65.77 kg, 157.48 cm) ED Course: 06:07 Patient arrived in ED. ds1 06:11 Jong Camarena PA is PHCP. jmm 06:11 Luis Eduardo Sun MD is Attending Physician. jm 06:14 Jade Franklin is Primary Nurse. 06:18 Triage completed. 06:22 Arm band placed on right wrist. wh 06:22 Patient has correct armband on for positive identification. Placed in gown. Bed in low wh position. Call light in reach. Side rails up X 1. Pulse ox on. NIBP on. 07:00 Accessed peripheral vein via ultrasound, utilizing dynamic ultrasound technique rv POWERGLIDE MIDLINE PRO 20 G X 8 CM Good blood return. Flushes easily. 07:00 Initial lab(s) drawn, by me, sent to lab. First set of blood cultures drawn by me. rv 07:59 No provider procedures requiring assistance completed. aa5 08:11 Radiology exam delayed due to test not completed at this time. sj 08:28 Straight cath inserted, using sterile technique, 16 Fr. Specimen obtained. Returned aa5 clear yellow urine. Patient tolerated well. 08:43 CT Abd/Pelvis - Without Contrast In Process Unspecified. EDMS 09:22 EKG done, by ED staff, reviewed by Jong WILSON. aa5 09:30 Report given to WALDEMAR Bolden. aa5 09:33 Hardeep Andrews MD is Hospitalizing Provider. [facility] 10:56 Patient admitted, IV remains in place. ca1 11:06 TSH and Troponin drawn by me and sent to lab. 3 Administered Medications: 07:07 Drug: Ativan 1 mg Route: IVP; Site: left upper arm; 07:09 Drug: diphenhydrAMINE 25 mg Route: IVP; Site: left antecubital; 07:11 Drug: Reglan 10 mg Route: IVP; Site: left upper arm; 09:24 Follow up: Response: No adverse reaction; Nausea is decreased aa5 08:02 Drug: NS 0.9% 500 ml Route: IV; Rate: bolus; Site: left upper arm; aa5 09:00 Follow up: Response: No adverse reaction; IV Status: Completed infusion aa5 11:12 Drug: Zofran (Ondansetron) 4 mg Route: IVP; Site: left upper arm; ca1 Outcome: 09:34 Decision to Hospitalize by Provider. [facility] 10:56 Admitted to Med/surg accompanied by tech, via wheelchair, room 204, with chart, Report ca1 called to Kay Yanez RN 10:56 Condition: stable 10:56 Instructed on the need for admit. 11:22 Patient left the ED. ca1 Signatures: Dispatcher [employer] EDMS Jong Camarena PA PA jmm Jones, Susan sj Sanford, Demi ds1 Jaye Irizarry, RN RN 5 Brandy Denis 3 Jade Franklin Campbell Howard RN RN rv Kimi Raymond RN RN ca1 Corrections: (The following items were deleted from the chart) 08:31 07:05 Reassessment: Bedside report received from WALDEMAR Hansen. Pt currently sitting up in aa5 bed, c/o abd pain 10/10 on a pain scale. Equal and unlabored respirations, skin is pale/warm/dry. . aa5
[2019-12-25] MEDS ORDERED: ACETAMINOPHEN 500 MG TAB PO PRN (10:01)
[2019-12-25] MEDS ORDERED: ALBUTEROL 2.5 MG/3 ML NEB SOL NEB PRN ×2 (10:01→14:00)
--- NOTE | 2019-12-25 10:21 | P.HP ---
Certification for Inpatient Patient admitted to: Inpatient With expected LOS: >2 Midnights Patient will require the following post-hospital care: None Practitioner: I am a practitioner with admitting privileges, knowledge of patient current condition, hospital course, and medical plan of care. Services: Services provided to patient in accordance with Admission requirements found in Title 42 Section 412.3 of the Code of Federal Regulations Patient History Date of Service: 12/25/19 Reason for admission: Abdominal Pain History of Present Illness: 39 yrs old Female with past medical history of diabetes, hypertension, CKD stage 2, pancreatitis presents with complaints of Abdominal Pain Associated with nausea and vomiting. Pain is sharp located in the epigastrium associated nausea and multiple episodes of vomiting. Denies any diarrhea. No radiation to the pain ..denies any CP or shortness of breath . Started yesterday. No recent travel or sick contacts. She has similar episodes in the past was diagnosed with possible gastroparesis Patient was assessed in the ER and was found to have anasarca as well as pleural effusion and pericardial effusion. The patient is being admitted for further management. Allergies No Known Allergies Allergy (Verified 10/15/19 20:41) Home medications list reviewed: Yes Home Medications: Carvedilol [Coreg] 25 mg PO BID 12/25/19 Diphenhydramine [Benadryl*] 25 mg PO QID 12/25/19 Erythromycin Suspension 4.5 ml PO Q8H 12/25/19 Furosemide [Lasix*] 80 mg PO DAILY 12/25/19 Insulin NPH Human [Novolin N (Humulin N)*] 12 units SQ DAILY 12/25/19 Pantoprazole [Protonix Tab*] 40 mg PO BIDAC 12/25/19 Sucralfate [Carafate*] 1 tab PO ACHS 12/25/19 - Past Medical/Surgical History Diabetic: Yes Past Medical History: Reviewed- Non-Contributory -: Diabetes mellitus type 2, insulin dependent -: Hypertension -: Chronic kidney disease stage 4 -: Diabetic nephropathy -: GERD with hiatal hernia -: Chronic nausea and vomiting -: Chronic anemia with Iron/B12 deficiency -: History of pancreatitis -: Chronic diastolic CHF Past Surgical History: Reviewed- Non-Contributory -: Pancreatic pseudocystectomy -: Appendectomy -: Cholecystectomy Psychosocial/ Personal History: Patient is - Family History Family History: Reviewed- Non-Contributory - Family History Mother -: Heart disease, Diabetes - Social History Smoking Status: Never smoker Alcohol use: No CD- Drugs: No Caffeine use: No Review of Systems 10-point ROS is otherwise unremarkable Physical Examination - Vital Signs Temperature: 97.9 F Blood Pressure: 166/92 Pulse: 114 Respirations: 18 Pulse Ox (%): 96 - Physical Exam General: Alert, Mild distress, Obese HEENT: Atraumatic, Normocephalic Neck: Supple Respiratory: Clear to auscultation bilaterally Cardiovascular: Normal S1 S2, Other (Tachycardiac) Capillary refill: <2 Seconds Gastrointestinal: Soft and benign, W/out hepatosplenomegaly, Other (Tenderness in the epigastric region), Tenderness Musculoskeletal: No clubbing, No swelling Integumentary: No rashes Neurological: Normal speech, Normal strength at 5/5 x4 extr Lymphatics: No axilla or inguinal lymphadenopathy External genitalia: Deferred Rectal: Deferred - Studies Laboratory Data (last 24 hrs) 12/25/19 07:00: PT 13.6 H, INR 1.16 12/25/19 07:00: Magnesium 2.1 12/25/19 07:00: Creatinine 2.36 H 12/25/19 07:00: WBC 7.0, Hgb 7.8 L*, Hct 24.3 L, Plt Count 301 12/25/19 07:00: Sodium 137, Potassium 4.7, BUN 21 H, Creatinine 2.37 H, Glucose 284 H, Total Bilirubin 0.3, AST 12 L, ALT 16, Alkaline Phosphatase 76, Lipase 16 L Laboratory Last Values WBC 7.0 K/uL (4.3-10.9) 12/25/19 07:00 RBC 2.86 M/uL (3.86-4.86) L 12/25/19 07:00 Hgb 7.8 g/dL (12.0-15.0) L* 12/25/19 07:00 Hct 24.3 % (36.0-45.0) L 12/25/19 07:00 MCV 85.0 fL (80-100) D 12/25/19 07:00 MCH 27.2 pg (27.0-35.0) 12/25/19 07:00 MCHC 32.0 g/dL (32.0-36.0) 12/25/19 07:00 RDW 14.0 % (12.1-15.2) 12/25/19 07:00 Plt Count 301 K/uL (152-406) 12/25/19 07:00 MPV 8.7 fL (7.6-11.3) 12/25/19 07:00 Neutrophils % 90.6 % (41.7-73.7) H 12/25/19 07:00 Lymphocytes % 5.1 % (15.3-44.8) L 12/25/19 07:00 Monocytes % 3.5 % (3.3-12.3) 12/25/19 07:00 Eosinophils % 0.1 % (0-4.4) 12/25/19 07:00 Basophils % 0.7 % (0-1.3) 12/25/19 07:00 Absolute Neutrophils 6.3 K/uL (1.8-8.0) 12/25/19 07:00 Absolute Lymphocytes 0.4 K/uL (0.7-4.9) L 12/25/19 07:00 Absolute Monocytes 0.2 K/uL (0.1-1.3) 12/25/19 07:00 Absolute Eosinophils 0.0 K/uL (0-0.5) 12/25/19 07:00 Absolute Basophils 0.0 K/uL (0-0.5) 12/25/19 07:00 Poikilocytosis 1+ 12/25/19 07:00 Anisocytosis 1+ 12/25/19 07:00 Morphology Comment Noted (NOT SEEN) 12/25/19 07:00 PT 13.6 SECONDS (9.5-12.5) H 12/25/19 07:00 INR 1.16 12/25/19 07:00 pH 7.35 (7.35-7.45) 12/25/19 08:31 pCO2 33.4 mmHG (35-45) L 12/25/19 08:31 pO2 72.3 mmHG (75-100) L 12/25/19 08:31 HCO3 18.1 mmol/L (22-28) L 12/25/19 08:31 Base Excess -6.4 mmol/L 12/25/19 08:31 Oxyhemoglobin 90.6 % (94-97) L 12/25/19 08:31 ABG O2 Sat (Measured) 92.9 % (92-98.5) 12/25/19 08:31 ABG Carboxyhemoglobin 1.7 % (0-1.5) H 12/25/19 08:31 ABG Methemoglobin 0.8 % (0-1.5) 12/25/19 08:31 Other Total Hgb 7.5 g/dl (12-18) L 12/25/19 08:31 Inspired O2 21.0 % 12/25/19 08:31 Sodium 137 mmol/L (136-145) 12/25/19 07:00 Potassium 4.7 mmol/L (3.5-5.1) 12/25/19 07:00 Chloride 106 mmol/L (98-107) 12/25/19 07:00 Carbon Dioxide 16 mmol/L (21-32) L 12/25/19 07:00 BUN 21 mg/dL (7-18) H 12/25/19 07:00 Creatinine 2.37 mg/dL (0.55-1.3) H 12/25/19 07:00 Estimated GFR 23 mL/min (=/>90) L 12/25/19 07:00 Glucose 284 mg/dL (74-106) H 12/25/19 07:00 POC Glucose 243 mg/dl (65-120) H 12/25/19 11:29 Lactic Acid 1.3 mmol/L (0.4-2.0) 12/25/19 07:00 Calcium 8.4 mg/dL (8.5-10.1) L 12/25/19 07:00 Magnesium 2.1 mg/dL (1.8-2.4) 12/25/19 07:00 Total Bilirubin 0.3 mg/dL (0.2-1.0) 12/25/19 07:00 Direct Bilirubin 0.1 mg/dL (0-0.2) 12/25/19 07:00 AST 12 U/L (15-37) L 12/25/19 07:00 ALT 16 U/L (12-78) 12/25/19 07:00 Alkaline Phosphatase 76 U/L (45-117) 12/25/19 07:00 Rapid Troponin I < 0.02 ng/mL (0.0-0.045) 12/25/19 07:00 Troponin I 0.03 ng/mL (0.0-0.045) 12/25/19 11:06 Serum Total Protein 6.1 g/dL (6.4-8.2) L 12/25/19 07:00 Albumin 2.8 g/dL (3.4-5.0) L 12/25/19 07:00 Globulin 3.3 g/dL (2.3-3.5) 12/25/19 07:00 Albumin/Globulin Ratio 0.8 (1.1-1.8) L 12/25/19 07:00 Lipase 16 U/L (73-393) L 12/25/19 07:00 Procalcitonin < 0.05 ng/mL (<0.50) 12/25/19 07:00 TSH 2.040 uIU/mL (0.360-3.740) 12/25/19 11:06 Urine pH 5.0 (5.0-7.0) 12/25/19 08:33 Ur Specific [place] 1.025 (1.005-1.030) 12/25/19 08:33 Glucose (UA)(Auto) 2+ (NEG) H 12/25/19 08:33 Urine Ketones 2+ (NEG) H 12/25/19 08:33 Urine Blood 2+ (NEG) H 12/25/19 08:33 Urine Nitrite Negative (NEG) 12/25/19 08:33 Ur Leukocyte Esterase Negative (NEG) 12/25/19 08:33 Urine Total Protein 3+ (NEG) H 12/25/19 08:33 Urine Test Neg (NEG) 12/25/19 08:33 ABO/Rh O POSITIVE 12/25/19 08:25 Solid Phase Ab Screen Negative 12/25/19 08:25 Microbiology Data (last 24 hrs): 12/25/19 07:51 Stool Occult Blood - Final Assessment and Plan - Problems (Diagnosis) (1) GUS (acute kidney injury) Current Visit: No Status: Acute (2) Anasarca associated with disorder of kidney Current Visit: No Status: Acute (3) Anemia Onset Date: 05/14/16 Current Visit: No Status: Acute (4) Diabetic gastroparesis Current Visit: No Status: Acute (5) Diabetic nephropathy Current Visit: No Status: Acute (6) Epigastric abdominal pain Current Visit: No Status: Acute (7) Hypertension Current Visit: No Status: Acute Qualifiers: Hypertension type: essential hypertension Qualified Code(s): I10 - Essential (primary) hypertension (8) Insulin dependent diabetes mellitus Current Visit: No Status: Acute (9) Nausea & vomiting Current Visit: No Status: Acute Qualifiers: Vomiting Intractability: unspecified (10) Pleural effusion Current Visit: No Status: Acute Plan: Intractable abdominal pain with nausea and vomiting Possible gastroparesis Diabetes Accelerated Hypertension Acute kidney injury on CKD stage 3 Chronic diastolic CHF Pleural effusion Pericardial effusion Monitor under telemetry will trend cardiac enzymes Will get an echocardiogram Cardiology consult Watch closely for any tamponade Aggressive diuresis Nephrology consult Pain control Anti nausea medications May need gastric motility medications Protonix Antihypertensives titrated GI/DVT prophylaxis - Advance Directives Does patient have a Living Will: No Does patient have a Durable POA for Healthcare: No Time Spent Managing Pts Care (In Minutes): 45
[2019-12-25 10:41] LABS: Anisocytosis 1+; Blood Morphology Comment NOTED (NOT SEEN); Platelet Estimate ADEQ; Poikilocytosis 1+; Urine White Blood Cell Casts OK
[2019-12-25] MEDS ORDERED: ONDANSETRON 4 MG/2 ML VIAL ONE (11:13)
--- NOTE | 2019-12-25 11:37 | ECHO ---
HEIGHT: ft in WEIGHT: lb oz DATE OF STUDY: 12/25/[address]: JULIO LAYNE 2-DIMENSIONAL: YES M.MODE: YES DOPPLER: COLOR FLOW: TDS: PORTABLE: DEFINITY: BUBBLE STUDY: DIAGNOSIS: PERICARDIAL EFFUSION CARDIAC HISTORY: CATHERIZATION: NO SURGERY: NO PROSTHETIC VALVE: NO PACEMAKER: NO MEASUREMENTS (cm) DIASTOLIC (NORMALS) SYSTOLIC (NORMALS) IVSd 1.0 (0.6-1.2) LA Diam 3.6 (1.9-4.0) LVEF 75% LVIDd 4.0 (3.5-5.7) LVIDs 2.3 (2.0-3.5) %FS 43% LVPWd 1.0 (0.6-1.2) Ao Diam 2.4 (2.0-3.7) 2 DIMENSIONAL ASSESSMENT: RIGHT ATRIUM: NORMAL LEFT ATRIUM: NORMAL RIGHT VENTRICLE: NORMAL LEFT VENTRICLE: NORMAL TRICUSPID VALVE: NORMAL MITRAL VALVE: NORMAL PULMONIC VALVE: NORMAL AORTIC VALVE: NORMAL PERICARDIAL EFFUSION: NONE AORTIC ROOT: NORMAL LEFT VENTRICULAR WALL MOTION: DOPPLER/COLOR FLOW: COMMENTS: NORMAL 2-DIMENSIONAL ECHOCARDIOGRAM WITH DOPPLER. NO WALL MOTION ABNORMALITY. NO EFFUSION. TECHNOLOGIST: MELBA MCQUEEN
[2019-12-25 11:57] VITALS: BMI 26.5
[2019-12-25] MEDS: ONDANSETRON 4 MG/2 ML VIAL IV PRN ×3 (12:09→23:46)
[2019-12-25] MEDS: FUROSEMIDE 40 MG/4 ML VIAL IV SCH ×2 (12:10→16:15)
[2019-12-25] MEDS: INSULIN -REGULAR HUMAN 50 UNIT/0.5 ML ML SQ SCH ×3 (12:10→21:34)
[2019-12-25] MEDS: MORPHINE 2 MG/ML SYR IV PRN ×2 (12:10→23:46)
[2019-12-25] MEDS ORDERED: SODIUM CHLORIDE 0.9% 10ML INJ IV PRN (12:38)
[2019-12-25] MEDS: ERYTHROMYCIN PO SCH ×2 (12:45→20:45)
[2019-12-25] MEDS: DIPHENHYDRAMINE 25 MG TAB/CAP PO SCH ×3 (13:00→21:35)
[2019-12-25] MEDS: PANTOPRAZOLE 40 MG INJ IVP SCH ×2 (13:11→21:40)
[2019-12-25 13:45] LABS: Potassium 4.5 mmol/L (3.5-5.1)
[2019-12-25] MEDS: SUCRALFATE 1 GM TABLET PO SCH ×2 (16:16→21:35)
--- NOTE | 2019-12-25 16:29 | RAD REPORT ---
EXAM DESCRIPTION: US - Renal Ultrasound-Complete - 12/25/2019 4:00 pm CLINICAL HISTORY: GUS Flank pain COMPARISON: Renal Ultrasound-Complete dated 10/05/2019; Abdomen Pelvis Wo Contrast dated 12/25/2019 FINDINGS: Both kidneys are mildly echogenic. The right kidney measures 11.0 x 5.1 x 4.6 cm. No hydronephrosis, focal mass or perinephric fluid. The left kidney measures 9.8 x 5.2 x 5.0 cm. No hydronephrosis, focal mass or perinephric fluid. The urinary bladder is incompletely distended without gross abnormality seen. IMPRESSION: Mildly echogenic kidneys bilaterally suggests medical renal disease.
[2019-12-25 16:40] LABS: Urine Appearance CLOUDY; Urine Bilirubin NEGATIVE (NEG); Urine Blood 1+ (NEG); Urine Color YELLOW; Urine Glucose 1+ (NEG); Urine Protein 3+ (NEG); Urine Urobilinogen 0.2 mg/dL (0.2-1.0)
[2019-12-25 17:07] LABS: Urine Microscopic Reflex ORDER UMIC
[2019-12-25 17:49] LABS: Urine Amorphous Sediment 2+ /HPF (NONE SEEN); Urine Bacteria 20-50 /HPF (<20); Urine Culture Reflex Order REFLEXED
--- NOTE | 2019-12-25 20:59 | CON ---
Date of Consultation: 12/25/[address] Andrews on 12/24/2019. I saw the patient on 12/25/2019. Reason For Consultation: Possible pericardial effusion and anasarca. History Of Present Illness: Ms. Marin is a 39-year-old woman, history of hypertension, diabetes , pancreatitis, came in with anasarca, abdominal pain, shortness of breath, was found to have maybe a pericardial effusion by CT scan. She had anasarca. She had mild ascites on her CT of her abdomen. Denied any chest pain, nausea, vomiting, diaphoresis, PND, orthopnea. She denied any palpitation or syncope. No previous cardiac history. Allergies: NONE. Review of Systems: Negative. Social History: Negative. Family History: Noncontributory. Home Medications: Include Coreg, Lasix, insulin, Protonix, Carafate, and erythromycin. Physical Examination: Vital Signs: Blood pressure is 166/92. She was in sinus tachycardia. HEENT: Negative. Neck: Supple with no bruit. Chest: Actually clear. Cardiac: Revealed tachycardia. No murmurs, gallops, or rubs. Abdomen: Distended, nontender. No bowel sounds. No hepatosplenomegaly. Extremities: Revealed edema 1 to 2+ throughout. Diagnostic Data: PO2 was 72, pCO2 was 33, pH was 7.35, glucose was 243, hemoglobin was 7.8, creatini ne is 2.30. EKG was unremarkable. CT of the abdomen was mentioned earlier. Impression And Plan: Possible pericardial effusion. An echocardiogram that was done today is perfec tly normal without any evidence of wall motion abnormalities effusion. Normal ejection fraction. Manoj rajput does not have a pericardial effusion. She has ascites and anasarca related to her anemia and r enal disease. Renal consultation is pending. I think GI should be consulted as well. We should may be consider low-dose Aldactone for her ascites and her anasarca in addition to her Lasix, but I will leave that up to Nephrology to decide. No further cardiac workup recommended from my standpoint. He r diabetes and hypertension are poorly controlled and need to be addressed by Dr. Andrews in the Nephro logy. I would continue her other regimen otherwise. I will continue to follow as needed. ELISA/MODL Voice ID: [id number] Report ID: [id number]
[2019-12-25] MEDS: carvediloL 25 MG TAB PO SCH (21:34)
[2019-12-26] MEDS: FUROSEMIDE 40 MG/4 ML VIAL IV SCH ×3 (00:50→17:15)
--- NOTE | 2019-12-26 02:30 | CON ---
Date of Consultation: 12/25/2019 History Of Present Illness: Patient is a 39-year-old woman with past medical history of hypertension, diabetes mellitus, CKD 2, previous history of pancreatitis. She presented to the hospital because of abdominal pain associated with nausea and vomiting. Patient was complaining of sharp pain in the epigastrium and was associated with nausea and vomiting. She denied diarrhea, melena, hematemesis. Patient denies shortness of breath, chest pain, palpitation. Review of Systems: Constitutional: Denies fever, chills. Eyes: Denies vision changes. Ears, Nose, Mouth, and Throat: Denies sore throat or earache. Respiratory: Denies PND orthopnea. Cardiovascular: Denies chest pain or palpitations. All other systems reviewed and all are negative. Past Medical History: Diabetes mellitus, hypertension, GERD, edema, diabetic nephropathy, stage 4 kidney disease, chronic diastolic dysfunction, congestive heart failure, pancreatitis, chronic anemia with an iron deficiency, B12 deficiency, diabetic gastroparesis. Family History: Mother has heart disease and diabetes. Social History: Denies tobacco, alcohol, or illicit drugs. The patient admitted to the hospital because of generalized weakness and abdominal pain. Laboratory Data: Today showed hemoglobin 7.8, WBC 7.0, platelet count is 301, 000. Sodium 140, potassium 4.5, chloride 108, CO2 20, BUN 19, creatinine 2.3, glucose 239. Physical Examination: General: The patient is awake, alert, follows commands. Eyes: Anicteric sclerae. EOMI. Ears, Nose, Mouth, and Throat: Oral mucosa moist. No pallor. Neck: Supple no bruits. Lungs: Clear to auscultation bilaterally. No rhonchi. No wheezing. Heart: S1, S2. No pericardial friction rub. Abdomen: Soft, benign, nontender. No rebound. No guarding. Extremities: Edema present in both legs. Neurological: Moving extremities. Cranial nerves intact. Psychiatric: Alert, oriented x3. Normal affect. Impression And Plan: 1. Patient has multiple medical problems including underlying chronic kidney disease. She presented to hospital because of generalized weakness. She was found to have anemia today. Patient will require workup for anemia. 2. Patient has chronic kidney disease stage 3, advancing to stage IV. Baseline creatinine level is ranging from 2.3 to 2.6. Estimated GFR is ranging from 19 to 27. 3. Anasarca, fluid overload, shortness of breath. Patient was found to have pericardial effusion on CT scan. Continue IV Lasix. Patient denies chest pain , nausea, vomiting, diaphoresis. Continue diuretic for volume control and to obtain negative fluid balance. Possible pericardial effusion. Patient is to have echocardiogram to evaluate for pericardial effusion. 4. Hypertension. Continue blood pressure medication. 5. Stage 3 chronic kidney disease, acute kidney injury. Patient will require diuretics for anasarca control. Continue to monitor electrolytes. Adjust Lasix dose as needed. ROSEANNA/MODEmily Voice ID: [id number] Report ID: [id number] MTDD
[2019-12-26] MEDS: ERYTHROMYCIN PO SCH ×3 (04:33→20:29)
[2019-12-26] MEDS: ONDANSETRON 4 MG/2 ML VIAL IV PRN ×3 (04:51→21:38)
[2019-12-26] MEDS: MORPHINE 2 MG/ML SYR IV PRN ×3 (04:51→23:49)
[2019-12-26 06:04] LABS: Absolute Lymphocytes (CBC) 0.8 K/uL (0.7-4.9); Basophils % 0.7 % (0-1.3); Hematocrit 22.1 % (36.0-45.0); Lymphocytes % 13.4 % (15.3-44.8); MPV 8.3 fL (7.6-11.3); RBC Red Blood Cell Count 2.63 M/uL (3.86-4.86)
[2019-12-26 06:06] LABS: Albumin 2.6 g/dL (3.4-5.0); Bilirubin Total 0.3 mg/dL (0.2-1.0); Magnesium 1.9 mg/dL (1.8-2.4); Phosphorus 4.6 mg/dL (2.5-4.9); Potassium 3.5 mmol/L (3.5-5.1); Protein, Total 5.5 g/dL (6.4-8.2)
[2019-12-26] MEDS: INSULIN -REGULAR HUMAN 50 UNIT/0.5 ML ML SQ SCH ×4 (07:30→20:28)
[2019-12-26] MEDS: carvediloL 25 MG TAB PO SCH ×2 (08:09→20:37)
[2019-12-26] MEDS: SUCRALFATE 1 GM TABLET PO SCH ×4 (08:10→20:37)
[2019-12-26] MEDS: PANTOPRAZOLE 40 MG INJ IVP SCH ×2 (08:10→20:36)
[2019-12-26] MEDS ORDERED: POTASSIUM CL SA 10 MEQ TAB PO ONE (09:00)
[2019-12-26] MEDS: PROMETHAZINE INJ 25 MG/ML AMP IV PRN ×3 (09:35→19:28)
[2019-12-26] MEDS: NPH (HUMAN) 100 UNITS/ML INSULIN SQ SCH (09:35)
--- NOTE | 2019-12-26 10:31 | P.PN ---
Subjective Date of Service: 12/26/19 Chief Complaint: Abdominal Pain Subjective: No new changes, Improving Review of Systems 10-point ROS is otherwise unremarkable Physical Examination - Vital Signs Temperature: 99.9 F Blood Pressure: 164/78 Pulse: 98 Respirations: 15 Pulse Ox (%): 95 - Physical Exam General: Alert, In no apparent distress HEENT: Atraumatic, Normocephalic Neck: Supple Respiratory: Clear to auscultation bilaterally Cardiovascular: Regular rate/rhythm, Normal S1 S2, Edema Capillary refill: <2 Seconds Gastrointestinal: Soft and benign, W/out hepatosplenomegaly Musculoskeletal: No clubbing, No swelling Integumentary: No rashes Neurological: Normal speech, Normal strength at 5/5 x4 extr Lymphatics: No axilla or inguinal lymphadenopathy External genitalia: Deferred Rectal: Deferred - Studies Laboratory Data (last 24 hrs) 12/25/19 07:00: WBC 7.0, Hgb 7.8 L*, Hct 24.3 L, Plt Count 301 Laboratory Last Values WBC 6.1 K/uL (4.3-10.9) 12/26/19 04:50 RBC 2.63 M/uL (3.86-4.86) L 12/26/19 04:50 Hgb 7.3 g/dL (12.0-15.0) L* 12/26/19 04:50 Hct 22.1 % (36.0-45.0) L 12/26/19 04:50 MCV 83.9 fL (80-100) 12/26/19 04:50 MCH 27.9 pg (27.0-35.0) 12/26/19 04:50 MCHC 33.3 g/dL (32.0-36.0) 12/26/19 04:50 RDW 13.7 % (12.1-15.2) 12/26/19 04:50 Plt Count 279 K/uL (152-406) 12/26/19 04:50 MPV 8.3 fL (7.6-11.3) 12/26/19 04:50 Neutrophils % 76.4 % (41.7-73.7) H 12/26/19 04:50 Lymphocytes % 13.4 % (15.3-44.8) L 12/26/19 04:50 Monocytes % 8.4 % (3.3-12.3) 12/26/19 04:50 Eosinophils % 1.1 % (0-4.4) 12/26/19 04:50 Basophils % 0.7 % (0-1.3) 12/26/19 04:50 Absolute Neutrophils 4.6 K/uL (1.8-8.0) 12/26/19 04:50 Absolute Lymphocytes 0.8 K/uL (0.7-4.9) 12/26/19 04:50 Absolute Monocytes 0.5 K/uL (0.1-1.3) 12/26/19 04:50 Absolute Eosinophils 0.1 K/uL (0-0.5) 12/26/19 04:50 Absolute Basophils 0.0 K/uL (0-0.5) 12/26/19 04:50 Poikilocytosis 1+ 12/25/19 07:00 Anisocytosis 1+ 12/25/19 07:00 Morphology Comment Noted (NOT SEEN) 12/25/19 07:00 PT 13.6 SECONDS (9.5-12.5) H 12/25/19 07:00 INR 1.16 12/25/19 07:00 pH 7.35 (7.35-7.45) 12/25/19 08:31 pCO2 33.4 mmHG (35-45) L 12/25/19 08:31 pO2 72.3 mmHG (75-100) L 12/25/19 08:31 HCO3 18.1 mmol/L (22-28) L 12/25/19 08:31 Base Excess -6.4 mmol/L 12/25/19 08:31 Oxyhemoglobin 90.6 % (94-97) L 12/25/19 08:31 ABG O2 Sat (Measured) 92.9 % (92-98.5) 12/25/19 08:31 ABG Carboxyhemoglobin 1.7 % (0-1.5) H 12/25/19 08:31 ABG Methemoglobin 0.8 % (0-1.5) 12/25/19 08:31 Other Total Hgb 7.5 g/dl (12-18) L 12/25/19 08:31 Inspired O2 21.0 % 12/25/19 08:31 Sodium 139 mmol/L (136-145) 12/26/19 04:50 Potassium 3.5 mmol/L (3.5-5.1) 12/26/19 04:50 Chloride 105 mmol/L (98-107) 12/26/19 04:50 Carbon Dioxide 25 mmol/L (21-32) 12/26/19 04:50 BUN 17 mg/dL (7-18) 12/26/19 04:50 Creatinine 2.36 mg/dL (0.55-1.3) H 12/26/19 04:50 Estimated GFR 23 mL/min (=/>90) L 12/26/19 04:50 Glucose 131 mg/dL (74-106) H 12/26/19 04:50 POC Glucose 137 mg/dl (65-120) H 12/26/19 07:32 Lactic Acid 1.3 mmol/L (0.4-2.0) 12/25/19 07:00 Calcium 8.2 mg/dL (8.5-10.1) L 12/26/19 04:50 Phosphorus 4.6 mg/dL (2.5-4.9) 12/26/19 04:50 Magnesium 1.9 mg/dL (1.8-2.4) 12/26/19 04:50 Total Bilirubin 0.3 mg/dL (0.2-1.0) 12/26/19 04:50 Direct Bilirubin 0.1 mg/dL (0-0.2) 12/25/19 07:00 AST 12 U/L (15-37) L 12/26/19 04:50 ALT 14 U/L (12-78) 12/26/19 04:50 Alkaline Phosphatase 67 U/L (45-117) 12/26/19 04:50 Rapid Troponin I < 0.02 ng/mL (0.0-0.045) 12/25/19 07:00 Troponin I < 0.02 ng/mL (0.0-0.045) 12/26/19 02:19 Serum Total Protein 5.5 g/dL (6.4-8.2) L 12/26/19 04:50 Albumin 2.6 g/dL (3.4-5.0) L 12/26/19 04:50 Globulin 2.9 g/dL (2.3-3.5) 12/26/19 04:50 Albumin/Globulin Ratio 0.9 (1.1-1.8) L 12/26/19 04:50 Lipase 16 U/L (73-393) L 12/25/19 07:00 Procalcitonin < 0.05 ng/mL (<0.50) 12/25/19 07:00 TSH 2.040 uIU/mL (0.360-3.740) 12/25/19 11:06 Urine Color Yellow 12/25/19 16:20 Urine Appearance Cloudy 12/25/19 16:20 Urine pH 5.0 (5.0-7.0) 12/25/19 16:20 Ur Specific [place] 1.010 (1.005-1.030) 12/25/19 16:20 Glucose (UA)(Auto) 1+ (NEG) H 12/25/19 16:20 Urine Ketones Trace (NEG) 12/25/19 16:20 Urine Blood 1+ (NEG) H 12/25/19 16:20 Urine Nitrite Negative (NEG) 12/25/19 16:20 Urine Bilirubin Negative (NEG) 12/25/19 16:20 Urine Urobilinogen 0.2 mg/dL (0.2-1.0) 12/25/19 16:20 Ur Leukocyte Esterase Negative (NEG) 12/25/19 16:20 Urine RBC 5-10 /HPF (NONE SEEN) H 12/25/19 16:20 Urine WBC 5-10 /HPF (<5) H 12/25/19 16:20 Ur Squamous Epith Cells 5-10 /HPF (NONE SEEN) H 12/25/19 16:20 Amorphous Sediment 2+ /HPF (NONE SEEN) H 12/25/19 16:20 Urine Bacteria 20-50 /HPF (<20) H 12/25/19 16:20 Urine Culture Reflexed Reflexed 12/25/19 16:20 Urine Total Protein 3+ (NEG) H 12/25/19 16:20 Urine Test Neg (NEG) 12/25/19 08:33 ABO/Rh O POSITIVE 12/25/19 08:25 Solid Phase Ab Screen Negative 12/25/19 08:25 Microbiology Data (last 24 hrs): 12/25/19 07:51 Stool Occult Blood - Final Assessment & Plan - Problems (Diagnosis) (1) GUS (acute kidney injury) Current Visit: No Status: Acute (2) Anasarca associated with disorder of kidney Current Visit: No Status: Acute (3) Anemia Onset Date: 05/14/16 Current Visit: No Status: Acute (4) Diabetic gastroparesis Current Visit: No Status: Acute (5) Diabetic nephropathy Current Visit: No Status: Acute (6) Epigastric abdominal pain Current Visit: No Status: Acute (7) Hypertension Current Visit: No Status: Acute Qualifiers: Hypertension type: essential hypertension Qualified Code(s): I10 - Essential (primary) hypertension (8) Insulin dependent diabetes mellitus Current Visit: No Status: Acute (9) Nausea & vomiting Current Visit: No Status: Acute Qualifiers: Vomiting Intractability: unspecified (10) Pleural effusion Current Visit: No Status: Acute Plan: Intractable abdominal pain with nausea and vomiting Possible gastroparesis Diabetes Accelerated Hypertension Acute kidney injury on CKD stage 3 Chronic diastolic CHF Pleural effusion Pericardial effusion ruled out by echocardiogram Monitor under telemetry Cardiology consult Appreciated No significant pericardial effusion Continue Aggressive diuresis Nephrology consult appreciated as well Pain control Anti nausea medications noted to have anemia Will get iron profiles and a FOBT Monitor H&H closely Transfuse p.r.n. Protonix Antihypertensives titrated GI/DVT prophylaxis Time Spent Managing Pts Care (In Minutes): 42
[2019-12-26 11:08] LABS: Folic Acid, (Folate) 15.2 ng/mL (3.1-17.5)
[2019-12-26 11:59] LABS: Hematocrit 25.2 % (36.0-45.0)
[2019-12-26] MEDS: DIPHENHYDRAMINE 25 MG TAB/CAP PO SCH (20:36)
[2019-12-27] MEDS: FUROSEMIDE 40 MG/4 ML VIAL IV SCH ×3 (01:00→17:17)
--- NOTE | 2019-12-27 01:27 | PN ---
Date of Progress Note: 12/26/2019 Chief Complaint: Chronic kidney disease, diabetic kidney disease, hypertension. Patient was complaining of sharp pain in the epigastrium associated with nausea , vomiting. Patient is admitted to the hospital for abdominal pain. Review of Systems: Patient denies new complaints. The pain is subsiding. Physical Examination: Lungs: Clear to auscultation bilaterally. Heart: S1, S2. Abdomen: Soft, benign. Extremities: No edema. Impression And Plan: Patient has multiple medical problems including history of chronic kidney disease. She presented to the hospital because of generalized weakness, abdominal pain. She was found to have anemia and she will require workup for anemia. Iron study is pending. 1. Patient has history of chronic kidney disease stage 3 advancing to stage 4. There is a prerenal azotemia. Patient has anasarca, fluid overload. Continue Lasix and check proteinuria panel to rule out nephrotic syndrome. 2. Hypertension. Continue blood pressure medication. Hold blood pressure medication if systolic blood pressure is below 110. I spent total 36 min including 25 min to coordinate care plan. EMMY Voice ID: [id number] Report ID: [id number]
[2019-12-27] MEDS: PROMETHAZINE INJ 25 MG/ML AMP IV PRN ×3 (04:12→14:04)
[2019-12-27] MEDS: ERYTHROMYCIN PO SCH ×3 (04:21→20:19)
[2019-12-27] MEDS ORDERED: METOPROLOL TARTRATE 5 MG/5 ML INJ IV STA (04:55)
[2019-12-27] MEDS ORDERED: METOPROLOL TARTRATE 5 MG/5 ML INJ IV PRN (06:00)
[2019-12-27 06:04] LABS: Potassium 3.1 mmol/L (3.5-5.1)
[2019-12-27 06:22] LABS: Absolute Lymphocytes (CBC) 1.1 K/uL (0.7-4.9); Basophils % 0.8 % (0-1.3); Lymphocytes % 18.1 % (15.3-44.8); MPV 8.6 fL (7.6-11.3)
[2019-12-27] MEDS: INSULIN -REGULAR HUMAN 50 UNIT/0.5 ML ML SQ SCH ×4 (07:30→20:18)
[2019-12-27] MEDS: NPH (HUMAN) 100 UNITS/ML INSULIN SQ SCH (08:26)
[2019-12-27] MEDS: carvediloL 25 MG TAB PO SCH ×2 (08:46→20:18)
[2019-12-27] MEDS: PANTOPRAZOLE 40 MG INJ IVP SCH ×2 (08:46→20:17)
[2019-12-27] MEDS: SUCRALFATE 1 GM TABLET PO SCH ×4 (08:46→20:19)
[2019-12-27] MEDS ORDERED: POTASSIUM CL SA 10 MEQ TAB PO ONE ×2 (09:00→17:00)
[2019-12-27] MEDS: ONDANSETRON 4 MG/2 ML VIAL IV PRN ×2 (12:10→20:17)
[2019-12-27] MEDS: MORPHINE 2 MG/ML SYR IV PRN (14:03)
--- NOTE | 2019-12-27 19:21 | P.PN ---
Subjective Date of Service: 12/27/19 Chief Complaint: Abdominal Pain Patient has no new complaint. Her anasarca have improved. Blood pressure is elevated. Blood glucose readings within good range. No vomiting. Physical Examination - Vital Signs Temperature: 99.0 F Blood Pressure: 180/82 Pulse: 94 Respirations: 16 Pulse Ox (%): 96 - Physical Exam General: Alert, In no apparent distress, Oriented x3 HEENT: Mucous membr. moist/pink, Sclerae nonicteric Neck: Supple, JVD not distended Respiratory: Clear to auscultation bilaterally, Normal air movement Cardiovascular: Normal pulses, Regular rate/rhythm, Normal S1 S2, Edema (1+ bilateral lower extremity edema) Gastrointestinal: Normal bowel sounds, Soft and benign, Non-distended, No tenderness Musculoskeletal: No swelling, No erythema Integumentary: No rashes Neurological: Normal speech, Normal strength at 5/5 x4 extr Assessment And Plan - Current Problems (Diagnosis) (1) Anasarca associated with disorder of kidney Current Visit: No Status: Acute (2) Diabetic gastroparesis Current Visit: No Status: Acute (3) Epigastric abdominal pain Current Visit: No Status: Acute (4) Hypertension Current Visit: No Status: Acute Qualifiers: Hypertension type: essential hypertension Qualified Code(s): I10 - Essential (primary) hypertension - Plan Continue IV Lasix per nephrology. Monitor urine output. Reglan p.r.n. for nausea and vomiting. Continue protonix Continue current insulin regimen. Iron profile noted. Transfuse p.r.n. for hemoglobin less than 7.
[2019-12-27] MEDS: DIPHENHYDRAMINE 25 MG TAB/CAP PO SCH (20:18)
[2019-12-27] MEDS ORDERED: POTASSIUM 25 MEQ EFFERV TAB PO ONE (20:46)
--- NOTE | 2019-12-27 23:24 | PN ---
Date of Progress Note: 12/27/2019 Chief Complaint: Chronic kidney disease, diabetic kidney disease, hypertension. History Of Present Illness: Patient presented to the hospital because of sharp pain in epigastrium a ssociated with nausea, vomiting. Patient is feeling better. Review of Systems: Denies chest pain or palpitations. Physical Examination: Lungs: Clear to auscultation bilaterally. Heart: S1-S2. Abdomen: Soft, benign. Extremities: Minimal peripheral edema. Impression And Plan: 1.Patient has multiple medical problems including chronic kidney disease. Avoid nephrotoxic medicat ion. Patient presented to the hospital because of generalized weakness. Patient may require IV flui d hydration. 2.Patient has history of chronic kidney disease stage 3, advancing to stage 4. Patient has some flu id overload and anasarca. Lasix can be used for diuresis. Monitor fluid balance. 3.Hypertension. Continue blood pressure medication. EB/MODL Voice ID: [id number] Report ID: [id number]
[2019-12-28] MEDS: METOCLOPRAMIDE 10 MG/2mL INJ IV PRN ×2 (03:46→09:21)
[2019-12-28] MEDS: MORPHINE 2 MG/ML SYR IV PRN ×2 (03:46→11:55)
[2019-12-28] MEDS: ERYTHROMYCIN PO SCH ×2 (04:45→11:55)
[2019-12-28 05:15] LABS: Absolute Lymphocytes (CBC) 0.8 K/uL (0.7-4.9); Hematocrit 25.4 % (36.0-45.0); RBC Red Blood Cell Count 3.07 M/uL (3.86-4.86)
[2019-12-28 05:38] LABS: Potassium 3.6 mmol/L (3.5-5.1)
[2019-12-28] MEDS: INSULIN -REGULAR HUMAN 50 UNIT/0.5 ML ML SQ SCH ×2 (07:30→11:55)
[2019-12-28] MEDS: NPH (HUMAN) 100 UNITS/ML INSULIN SQ SCH (08:44)
[2019-12-28] MEDS ORDERED: FUROSEMIDE 40 MG/4 ML VIAL IV SCH (09:00)
[2019-12-28] MEDS ORDERED: POTASSIUM CL SA 10 MEQ TAB PO ONE (09:00)
[2019-12-28] MEDS: carvediloL 25 MG TAB PO SCH (09:20)
[2019-12-28] MEDS: SUCRALFATE 1 GM TABLET PO SCH ×2 (09:20→11:55)
[2019-12-28] MEDS: PANTOPRAZOLE 40 MG INJ IVP SCH (09:21)
[2019-12-28 10:56] VITALS: O2SAT 98
[2019-12-28 12:50] VITALS: BP 181/89; TEMP 97.9
--- NOTE | 2019-12-28 15:41 | EKG ---
Test Date: 2019-12-25 Test Time: 09:20:10 Software Licensing Executive: REYNALDO MEASUREMENT RESULTS: Intervals: Rate: 115 IN: 130 QRSD: 62 QT: 296 QTc: 409 [place]: P: 61 IN: 130 QRS: -27 T: 80 INTERPRETIVE STATEMENTS: Sinus tachycardia Low voltage QRS Septal infarct, age undetermined Abnormal ECG Compared to ECG 10/30/2019 17:32:29 Low QRS voltage now present Sinus rhythm no longer present Myocardial infarct finding still present Electronically Signed On 12-28-19 15:40:01 INORGANIC CHEMISTRY PROFESSOR by Gerson Agiular
--- NOTE | 2019-12-28 23:56 | DS ---
Date of Discharge: 12/28/2019 Consultants: 1.Charlene Rodrigez M.D. with Nephrology. 2.Dr. Walter with Cardiology. Admitting Diagnoses: 1.Acute kidney injury. 2.Anasarca. 3.Anemia. 4.Diabetic gastroparesis. 5.Diabetic nephropathy. 6.Epigastric abdominal pain. 7.Essential hypertension. 8.Insulin-dependent diabetes mellitus. 9.Nausea, vomiting, non-intractable. 10.Pleural effusion. Discharge Diagnoses: 1.Anasarca associated with disorder of kidney, improved. 2.Diabetic gastroparesis. 3.Epigastric abdominal pain likely related to above, improved. 4.Essential hypertension. 5.Chronic kidney disease, stage IV. 6.Diabetic nephropathy. 7.Chronic nausea and vomiting on erythromycin, likely due to diabetic gastroparesis. 8.History of pancreatitis. 9.History of anemia with iron deficiency. 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 11.Pleural effusion, none seen on echocardiogram. 12.Acute cystitis with hematuria. Hospital Course: Patient is a 39-year-old female with complicated past medical history incl uding poorly-controlled diabetes, hypertension, chronic kidney disease, and pancreatitis, comes in wi th abdominal pain, nausea, vomiting. Patient had associated nausea and vomiting along with epigastri c pain. CT scan of the abdomen and pelvis was done, which showed [id number] severity fluid re tention pattern with edema throughout the subcutaneous fatty tissues of the abdomen and pelvis, moder ate-sized bilateral pleural effusions and minimal amount of ascites. No obstruction, free air, or page rgically emergent finding. Patient's CT scan also reported some pericardial effusion. Echocardiogra m was done, did not show any pericardial effusion. Her ejection fraction was normal. She was consid ered to have anasarca and she was started on diuretics. Nephrology was also consulted due to patient 's chronic kidney disease. The patient's kidney function remained stable. White count remained stab le. She is anemic, which is chronic. She has vitamin B12 deficiency as well as iron deficiency. Sh e also had some electrolyte disturbances, which were corrected. Patient was also found to have a UTI and growing out Staph aureus, which is methicillin sensitive. The patient overall did well. She wa s able to tolerate her diet. She was given Reglan IV as well. She is on erythromycin for her gastro paresis. Patient is recommended to follow up with GI as an outpatient for her continued GI symptoms. She was seen by Dr. Gonzales. Patient was then cleared for discharge and was sent home in a stable c ondition. Patient was counseled regarding her diabetes. She needs to have better glucose control. She is to follow up with her PCP and to keep a close eye on her blood sugar levels, check at least 3- 4 times daily, keep a log and to have her PCP adjust her insulin dose. Latest hemoglobin A1c was 8.9 % from October. Followup: Follow up with production planning manager Dr. Paul in 2 weeks. Follow up with GI, Dr. Gonzales in 2 w eeks. Return to ER for worsening condition. Diet: Diabetic. Activity: As tolerated. Medications: As per medication reconciliation list. Physical Examination: General: Awake, alert, and oriented x3, no acute distress. Appears older than stated age. CV: S1, S2. Respiratory: Moving air well bilaterally. Abdomen: Abdomen is soft, nontender, nondistended. Positive bowel sounds. Extremities: No clubbing, cyanosis, or edema. Neurologic: Nonfocal. Total time spent discharging patient was 37 minutes. /NATANAEL Voice ID: [id number] Report ID: [id number]
--- NOTE | 2019-12-29 00:02 | PN ---
Date of Progress Note: 12/28/2019 Chief Complaint: Chronic kidney disease, anasarca, fluid overload. Subjective: Patient is on diuretics. Renal function has been stabilizing. Review of Systems: Denies fevers or chills. Physical Examination: Lungs: Clear to auscultation bilaterally. Heart: S1-S2. Abdomen: Soft, benign. Extremities: Slight edema. Impression And Plan: Patient has multiple medical problems including; 1.History of chronic kidney disease. Continue to adjust diuretic for adequate fluid balance and to control anasarca. Continue low-sodium diet. 2.Hypertension. Continue blood pressure medication. 3.Generalized edema. Avoid nephrotoxic medication. Patient is not a candidate for nonsteroidal ant i-inflammatory medication. EB/MODL Voice ID: [id number] Report ID: [id number]
== END 2019-12-28 12:31 | disposition home or self-care (01) | DRG 683 ==
LOC: ER 06:05 → ERHOLD 10:02 → 2ND 10:56
PROVIDERS: ADMIT Family Medicine; ATTEND Family Medicine
DX: N17.9 Acute kidney failure, unspecified (principal); I13.0 Hypertensive heart and chronic kidney disease with heart failure and stage 1 through stage 4 chronic kidney disease, or unspecified chronic kidney disease; I50.32 Chronic diastolic (congestive) heart failure; N30.01 Acute cystitis with hematuria; N18.4 Chronic kidney disease, stage 4 (severe); E11.22 Type 2 diabetes mellitus with diabetic chronic kidney disease; K21.9 Gastro-esophageal reflux disease without esophagitis; K44.9 Diaphragmatic hernia without obstruction or gangrene; D64.9 Anemia, unspecified; E11.43 Type 2 diabetes mellitus with diabetic autonomic (poly)neuropathy; K31.84 Gastroparesis; B95.61 Methicillin susceptible Staphylococcus aureus infection as the cause of diseases classified elsewhere
CPT/HCPCS: 36415; 51702; 74176; 76770; 80048; 80053; 80076; 81003; 81015; 81025; 82272; 82607; 82746; 82805; 82947; 83540; 83605; 83690; 83735; 84100; 84132; 84145; 84443; 84466; 84484; 85014; 85018; 85025; 85610; 86850; 86900; 86901; 87040; 87077; 87086; 87088; 87186; 93005; 93307; 94760; 96361; 96374; 96375; 99285; C9113; J1200; J1815; J1940; J2270; J2405; J2550; J2765; J7040

== ENCOUNTER 2019-12-30 23:50 | Emergency (ER) | payer SELFPAY ==
--- OUTSIDE RECORDS SUMMARY | 2019-12-30 23:53 | XMS REPORT ---
:1980 [facility] Address [address] [place] [address] [address] [place] [address] Care Team Providers Name Role Phone Unavailable Unavailable Unavailable Problems This patient has no known problems. Allergies, Adverse Reactions, Alerts This patient has no known allergies or adverse reactions. Medications This patient has no known medications.
[2019-12-31] MEDS ORDERED: cloNIDine HCL 0.1 MG TAB ONE (00:42)
[2019-12-31] MEDS ORDERED: ONDANSETRON 4 MG (ODT) TAB ONE (00:42)
--- NOTE | 2019-12-31 03:34 | ER ---
Nurse's Notes [facility] Name: Mercedes Marin Age: 39 yrs Sex: Female : 1980 Arrival Date: 12/30/2019 Time: 23:52 Bed 15 Private MD: Diagnosis: HYPERTENSIVE URGENCY;Nausea Presentation: 12/29 23:55 Chief complaint: Spouse and/or significant other states: high blood pressure and ah vomiting. Coronavirus screen: The patient has NOT traveled to a country currently being monitored by the [facility] within the last 14 days. The patient has NOT had contact with any known and/or suspected case of coronavirus. Ebola Screen: No symptoms or risks identified at this time. Initial Sepsis Screen: Does the patient meet any 2 criteria? No. Patient's initial sepsis screen is negative. Does the patient have a suspected source of infection? No. Patient's initial sepsis screen is negative. Risk Assessment: Do you want to hurt yourself or someone else? Patient reports no desire to harm self or others. 23:55 Method Of Arrival: Wheelchair 23:55 Acuity: ALONDRA 2 23:55 Onset of symptoms was December 30, 2019. Historical: - Allergies: 12/30 01:00 No Known Allergies; - Home Meds: 00:57 metoprolol tartrate Oral [Active]; Novolin 70/30 [place] Sub-Q [Active]; - PMHx: 00:57 Diabetes - IDDM; Hypertension; Pancreatitis; - Immunization history:: Flu vaccine is up to date. - Social history:: Smoking status: Patient denies any tobacco usage or history of. Patient/guardian denies using. Screenin:38 Abuse screen: Denies threats or abuse. Nutritional screening: No deficits noted. Tuberculosis screening: No symptoms or risk factors identified. Fall Risk None identified. Assessment: 00:10 General: Appears uncomfortable, Behavior is cooperative. Pain: Denies pain. Neuro: Level of Consciousness is awake, alert, Oriented to person, place, time, situation. Cardiovascular: Reports vomiting, since today Denies chest pain, Heart tones S1 S2 present. 00:10 Respiratory: Airway is patent Respiratory effort is even, unlabored, Respiratory ah pattern is regular, symmetrical. GI: Abdomen is flat, Bowel sounds present X 4 quads. : No signs and/or symptoms were reported regarding the genitourinary system. EENT: No signs and/or symptoms were reported regarding the EENT system. Derm: No signs and/or symptoms reported regarding the dermatologic system. 01:34 Reassessment: Pt with no vomiting at this time, clonidine administered at this time. 02:30 Reassessment: Patient appears in no apparent distress at this time. Patient and/or family updated on plan of care and expected duration. Pain level reassessed. Patient is alert, oriented x 3, equal unlabored respirations, skin warm/dry/pink. Patient states symptoms have improved. 03:30 Reassessment: Patient appears in no apparent distress at this time. Patient and/or family updated on plan of care and expected duration. Pain level reassessed. Patient is alert, oriented x 3, equal unlabored respirations, skin warm/dry/pink. Pt resting with eyes closed and resp even and unlabored. Denies nausea at this time. Vital Signs: 12/29 23:55 BP 187 / 93; Pulse 90; Resp 17; Temp 98.1; Pulse Ox 100% ; Weight 65.77 kg; Height 5 ft. 2 in. (157.48 cm); Pain 0/10; 05 00:00 BP 185 / 95; Pulse 90; Resp 17; Pulse Ox 100% ; 00:15 BP 181 / 96; Pulse 88; Resp 13; Pulse Ox 100% ; 00:45 BP 184 / 92; Pulse 95; Resp 15; Pulse Ox 100% ; 01:15 BP 186 / 90; Pulse 93; Resp 13; Pulse Ox 98% ; 01:45 BP 190 / 97; Pulse 102; Resp 17; Pulse Ox 100% ; 02:00 BP 184 / 93; Pulse 92; Resp 13; Pulse Ox 96% ; 02:30 BP 159 / 79; Pulse 89; Resp 17; Pulse Ox 97% ; 03:00 BP 140 / 74; Pulse 88; Resp 8; Pulse Ox 95% ; 03:30 BP 149 / 74; Pulse 88; Resp 12; Pulse Ox 95% ; 12/29 23:55 Body Mass Index 26.52 (65.77 kg, 157.48 cm) 03:00 Pt resting with eyes closed and resp even and unlabored. Spouse at bedside ED Course: 03/04 23:52 Patient arrived in ED. cl3 23:56 Blanka Aguilar, RN is Primary Nurse. 12/30 00:06 EKG done, by ED staff, reviewed by Mauricio Garay MD. wi 00:20 Missed attempt(s): 20 gauge in left antecubital area. lp1 00:25 Mauricio Garay MD is Attending Physician. tw4 00:30 No provider procedures requiring assistance completed. Patient did not have IV access ah during this emergency room visit. 00:53 Triage completed. 01:00 Patient has correct armband on for positive identification. Placed in gown. Bed in low ah position. Call light in reach. Side rails up X2. 03:55 Arm band placed on. ah Administered Medications: 00:40 Drug: Ondansetron (Zofran) 4 mg Route: PO; lp1 01:40 Follow up: Response: No adverse reaction; Nausea is decreased 01:33 Drug: cloNIDine 0.2 mg Route: PO; 02:30 Follow up: Response: No adverse reaction; Blood pressure is lowered 04:34 Not Given (Blood pressure decreased with oral meds): hydrALAZINE 20 mg IM once ah Outcome: 03:33 Discharge ordered by . tw4 03:53 Discharged to home ambulatory. 03:53 Condition: stable 03:53 Discharge instructions given to patient, family, Instructed on discharge instructions, follow up and referral plans. medication usage, Demonstrated understanding of instructions, follow-up care, medications, Prescriptions given X 1. 04:24 Patient left the ED. mw2 Signatures: Chelsea Puri RN RN 1 [facility] Mauricio Garay MD MD 4 Maria Elena Bonner 2 Mohini Stephens cl3 Blanka Aguilar, RN RN Corrections: (The following items were deleted from the chart) 01:06 01:02 General: Appears uncomfortable, Behavior is cooperative, [facility] :06 01:02 Pain: Denies pain. [facility] : 01:02 Neuro: Level of Consciousness is awake, alert, Oriented to person, place, time, ah situation, 01:06 01:02 Cardiovascular: Reports vomiting, since today Denies chest pain, Heart tones S1 ah S2 present 04:32 04:29 Onset of symptoms was December 30, 2019 [facility]
--- NOTE | 2019-12-31 03:34 | EDPHYS ---
Physician Documentation [facility] Name: Mercedes Marin Age: 39 yrs Sex: Female : 1980 Arrival Date: 12/30/2019 Time: 23:52 Bed 15 Private MD: ED Physician Mauricio Garay HPI: 12/30 02:42 This 39 yrs old Female presents to ER via Wheelchair with complaints of High tw4 Blood Pressure. 02:42 The patient has elevated blood pressure and discovered this at home, with a home tw4 device. Onset: The symptoms/episode began/occurred today. Modifying factors: The symptoms are aggravated by The symptoms are alleviated by. Associated signs and symptoms: Pertinent positives: nausea. Severity of symptoms: At its worst the blood pressure was. The patient has not experienced similar symptoms in the past. Historical: - Allergies: 01:00 No Known Allergies; ah - Home Meds: 00:57 metoprolol tartrate Oral [Active]; Novolin 70/30 [place] Sub-Q [Active]; - PMHx: 00:57 Diabetes - IDDM; Hypertension; Pancreatitis; - Immunization history:: Flu vaccine is up to date. - Social history:: Smoking status: Patient denies any tobacco usage or history of. Patient/guardian denies using. ROS: 02:42 Constitutional: Negative for fever, chills, and weight loss, Eyes: Negative for injury, tw4 pain, redness, and discharge, Cardiovascular: Negative for chest pain, palpitations, and edema, Respiratory: Negative for shortness of breath, cough, wheezing, and pleuritic chest pain, Abdomen/GI: Negative for abdominal pain, nausea, vomiting, diarrhea, and constipation, Back: Negative for injury and pain, MS/Extremity: Negative for injury and deformity, Skin: Negative for injury, rash, and discoloration, Neuro: Negative for headache, weakness, numbness, tingling, and seizure. Exam: 02:43 Constitutional: This is a well developed, well nourished patient who is awake, alert, tw4 and in no acute distress. Head/Face: Normocephalic, atraumatic. Chest/axilla: Normal chest wall appearance and motion. Nontender with no deformity. No lesions are appreciated. Cardiovascular: Regular rate and rhythm with a normal S1 and S2. No gallops, murmurs, or rubs. Normal PMI, no JVD. No pulse deficits. Respiratory: Lungs have equal breath sounds bilaterally, clear to auscultation and percussion. No rales, rhonchi or wheezes noted. No increased work of breathing, no retractions or nasal flaring. Abdomen/GI: Soft, non-tender, with normal bowel sounds. No distension or tympany. No guarding or rebound. No evidence of tenderness throughout. Back: No spinal tenderness. No costovertebral tenderness. Full range of motion. MS/ Extremity: Pulses equal, no cyanosis. Neurovascular intact. Full, normal range of motion. Neuro: Awake and alert, GCS 15, oriented to person, place, time, and situation. Cranial nerves II-XII grossly intact. Motor strength 5/5 in all extremities. Sensory grossly intact. Cerebellar exam normal. Normal gait. Vital Signs: 12/29 23:55 BP 187 / 93; Pulse 90; Resp 17; Temp 98.1; Pulse Ox 100% ; Weight 65.77 kg; Height 5 ft. 2 in. (157.48 cm); Pain 0/10; 05 00:00 BP 185 / 95; Pulse 90; Resp 17; Pulse Ox 100% ; 00:15 BP 181 / 96; Pulse 88; Resp 13; Pulse Ox 100% ; 00:45 BP 184 / 92; Pulse 95; Resp 15; Pulse Ox 100% ; 01:15 BP 186 / 90; Pulse 93; Resp 13; Pulse Ox 98% ; 01:45 BP 190 / 97; Pulse 102; Resp 17; Pulse Ox 100% ; 02:00 BP 184 / 93; Pulse 92; Resp 13; Pulse Ox 96% ; 02:30 BP 159 / 79; Pulse 89; Resp 17; Pulse Ox 97% ; 03:00 BP 140 / 74; Pulse 88; Resp 8; Pulse Ox 95% ; 03:30 BP 149 / 74; Pulse 88; Resp 12; Pulse Ox 95% ; 12/29 23:55 Body Mass Index 26.52 (65.77 kg, 157.48 cm) 03:00 Pt resting with eyes closed and resp even and unlabored. Spouse at bedside MDM: 00:25 Patient medically screened. tw4 03:29 Differential diagnosis: hypertensive crisis, CVA. Data reviewed: vital signs, nurses tw4 notes. Data interpreted: Pulse oximetry: Interpretation: normal. Counseling: I had a detailed discussion with the patient and/or guardian regarding: the historical points, exam findings, and any diagnostic results supporting the discharge/admit diagnosis. Medication response: clonidine reduced the patient's elevated blood pressure to within acceptable limits. Medication response: Zofran relieved the patient's nausea. Response to treatment: and as a result, I will discharge patient. Special discussion: I discussed with the patient/guardian in detail that at this point there is no indication for admission to the hospital. It is understood, however, that if the symptoms persist or worsen the patient needs to return immediately for re-evaluation. EC:08 Rate is 89 beats/min. Rhythm is regular. NH interval is normal. QT interval is normal. tw4 No Q waves. T waves are Inverted in lead aVL. T waves are Flattened. No ST changes noted. Clinical impression: NSR w/ Non-specific ST/T Changes. Interpreted by me. Reviewed by me. Administered Medications: 00:40 Drug: Ondansetron (Zofran) 4 mg Route: PO; lp1 01:40 Follow up: Response: No adverse reaction; Nausea is decreased 01:33 Drug: cloNIDine 0.2 mg Route: PO; 02:30 Follow up: Response: No adverse reaction; Blood pressure is lowered 04:34 Not Given (Blood pressure decreased with oral meds): hydrALAZINE 20 mg IM once ah Disposition: 12/31/19 03:33 Discharged to Home. Impression: HYPERTENSIVE URGENCY, Nausea. - Condition is Stable. - Discharge Instructions: Hypertension, Nausea, Adult. - Prescriptions for Zofran 4 mg Oral Tablet - take 1 tablet by ORAL route every 12 hours As needed; 6 tablet. - Medication Reconciliation Form, Thank You Letter, Antibiotic Education, Prescription Opioid Use form. - Follow up: Private Physician; When: Upon discharge from the Emergency Department; Reason: Recheck today's complaints, Continuance of care, Re-evaluation by your physician. - Problem is new. - Symptoms have improved. Signatures: Chelsea Puri RN RN lp1 Mauricio Garay MD MD 4 Maria Elena Bonner 2 Blanka Aguilar RN RN Corrections: (The following items were deleted from the chart) 04:24 03:33 12/31/2019 03:33 Discharged to Home. Impression: HYPERTENSIVE URGENCY; Nausea. mw2 Condition is Stable. Forms are Medication Reconciliation Form, Thank You Letter, Antibiotic Education, Prescription Opioid Use. Follow up: Private Physician; When: Upon discharge from the Emergency Department; Reason: Recheck today's complaints, Continuance of care, Re-evaluation by your physician. Problem is new. Symptoms have improved. tw4
[2019-12-31 04:35] VITALS: TEMP 98.1
[2019-12-31 04:49] VITALS: O2SAT 95
[2019-12-31 04:51] VITALS: BP 149/74
--- NOTE | 2019-12-31 11:38 | EKG ---
Test Date: 2019-12-31 Test Time: 00:02:01 Rn Research: TORI MEASUREMENT RESULTS: Intervals: Rate: 89 OR: 140 QRSD: 60 QT: 366 QTc: 445 [place]: P: 71 OR: 140 QRS: 3 T: 71 INTERPRETIVE STATEMENTS: Normal sinus rhythm Septal infarct, age undetermined Abnormal ECG Compared to ECG 12/25/2019 09:20:10 Sinus tachycardia no longer present Myocardial infarct finding still present Electronically Signed On 12-31-19 11:36:24 DESKTOP SUPPORT CONSULTANT by Marquez Walter
== END 2019-12-31 04:24 | disposition home or self-care (01) ==
LOC: ER 23:50
DX: I16.0 Hypertensive urgency (principal); I10 Essential (primary) hypertension; E11.9 Type 2 diabetes mellitus without complications; Z79.4 Long term (current) use of insulin
CPT/HCPCS: 93005; 99283

== ENCOUNTER 2020-01-05 23:15 | Emergency (ER) | payer SELFPAY ==
--- OUTSIDE RECORDS SUMMARY | 2020-01-05 23:16 | XMS REPORT ---
:1980 [facility] Address [address] [place] [address] [address] [place] [address] Care Team Providers Name Role Phone Unavailable Unavailable Unavailable Problems This patient has no known problems. Allergies, Adverse Reactions, Alerts This patient has no known allergies or adverse reactions. Medications This patient has no known medications.
--- OUTSIDE RECORDS SUMMARY | 2020-01-05 23:27 | XMS REPORT | Summary of Care ---
:1980 Author Organization [facility] - [facility] Address [address] [place] [id number] Care Team Providers Name Role Phone Bill Liv Twyla Primary Care Provider Reason for Visit Reason Comments Transition Of Care Encounter Details Date Type Department Care Team Description 12/14/2019 Transition of Care [facility] Michelle Reagan Transition Of Care [facility]- [address] [place] [id number] Allergies No Known Allergiesdocumented as of this encounter (statuses as of 01/01/2020) Medications Medication Sig Dispensed Refills Start Date End Date Status metoclopramide HCl 5 Take 5 mL by 473 mL 2 12/12/2019 Active mg/5 mL mouth 4 (four) solutionIndications: times daily. 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 diabetes mellitus without complication, unspecified whether group home insulin use, Nephrotic syndrome amLODIPine 5 mg Take 1 tablet by 14 tablet 0 12/12/2019 Active tabletIndications: mouth daily. 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 diabetes mellitus without complication, unspecified whether group home insulin use, Nephrotic syndrome diphenhydrAMINE 25 mg Take 1 tablet by 56 tablet 0 12/12/2019 Active tabletIndications: mouth 4 (four) Intractable nausea and times daily. vomiting, Type 2 diabetes mellitus without complication, unspecified whether group home insulin use, Nephrotic syndrome pantoprazole 40 mg EC Take 1 tablet by 60 tablet 1 12/12/2019 Active tabletIndications: mouth 2 (two) Intractable nausea and times daily. 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 mellitus without complication, unspecified whether group home insulin use insulin NPH 100 unit/mL inject 10 Units 2 Vial 0 12/12/2019 Active injectionIndications: under the skin Type 2 diabetes every evening. 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 unspecified whether group home insulin use documented as of this encounter (statuses as of 01/01/2020) Active Problems Problem Noted Date Intractable nausea and vomiting 11/15/2019 Intractable vomiting 11/07/2019 Vomiting 11/07/2019 General counseling and advice for contraceptive management 05/07/2013 Overview: ICD10 Diagnosis Term Sledger Utility Encounter for routine gynecological examination 05/07/2013 Overview: ICD10 Diagnosis Term Sledger Utility Type 2 diabetes mellitus without complications 05/07/2013 Overview: 05/07/2013- Diabetes x 10 years. Previously taking po medication. ICD10 Diagnosis Term Sledger Utility Rubella immune 05/07/2013 Candidiasis of vulva and vagina 05/07/2013 documented as of this encounter (statuses as of 01/01/2020) Immunizations Name Administration Dates Next Due Influenza [...] PCV13) LDL-C 12/03/2020 12/03/2019, 11/07/2019 CREATININE (SERUM) 12/24/2020 12/24/2019, 12/22/2019, 12/12/2019, Additional history exists DTaP,Tdap,and Td Vaccines (2 - Td) 12/11/2029 12/11/2019, 05/07/2009 INFLUENZA VACCINE Completed 11/21/2019 documented as of this encounter Results Not on filedocumented in this encounter Insurance Payer Benefit Plan / Subscriber ID Effective Dates Phone Address Type Group [facility] [employer] [id number] [address] Agency [employer] [address] [id number] [place] [address] documented as of this encounter
[2020-01-05] MEDS ORDERED: ONDANSETRON 4 MG/2 ML VIAL ONE (23:49)
[2020-01-05] MEDS ORDERED: NA CHLORIDE 0.9% 1,000 ML ONE (23:49)
[2020-01-06 00:18] LABS: Absolute Lymphocytes (CBC) 1.1 K/uL (0.7-4.9); Basophils % 1.5 % (0-1.3); Hematocrit 27.2 % (36.0-45.0); Lymphocytes % 13.8 % (15.3-44.8); MPV 9.8 fL (7.6-11.3); RBC Red Blood Cell Count 3.28 M/uL (3.86-4.86)
[2020-01-06 00:37] LABS: ALT/SGPT 14 U/L (12-78); AST/SGOT 9 U/L (15-37); Albumin 2.7 g/dL (3.4-5.0); Alkaline Phosphatase 55 U/L (45-117); BUN Blood Urea Nitrogen 30 mg/dL (7-18); Bicarbonate 27 mmol/L (21-32); Bilirubin Direct < 0.1 mg/dL (0-0.2); Bilirubin Total 0.3 mg/dL (0.2-1.0); Glucose Level 126 mg/dL (74-106); Lipase 47 U/L (73-393); Potassium 5.2 mmol/L (3.5-5.1); Protein, Total 5.8 g/dL (6.4-8.2); Sodium Level 136 mmol/L (136-145)
--- NOTE | 2020-01-06 02:32 | ER ---
Nurse's Notes [facility] Name: Mercedes Marin Age: 39 yrs Sex: Female : 1980 Arrival Date: 01/05/2020 Time: 23:18 Bed 18 [facility] MD: Diagnosis: Dehydration;Nausea and vomiting Presentation: 01/04 23:34 Chief complaint: Spouse and/or significant other states: "she has been having stomach jd3 pain since this morning with nausea and vomiting.". Coronavirus screen: The patient has NOT traveled to a country currently being monitored by the [facility] within the last 14 days. The patient has NOT had contact with any known and/or suspected case of coronavirus. Proceed with normal triage procedures. Ebola Screen: Patient negative for fever greater than or equal to 101.5 degrees Fahrenheit, and additional compatible Ebola Virus Disease symptoms. Initial Sepsis Screen: Does the patient meet any 2 criteria? No. Patient's initial sepsis screen is negative. Does the patient have a suspected source of infection? No. Patient's initial sepsis screen is negative. Risk Assessment: Do you want to hurt yourself or someone else? Patient reports no desire to harm self or others. 23:34 Method Of Arrival: Ambulatory jd3 23:34 Acuity: ALONDRA 3 jd3 23:41 Onset of symptoms was January 05, 2020. 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 - Social history:: Smoking status: Patient denies any tobacco usage or history of. Screenin:40 Abuse screen: Denies threats or abuse. Nutritional screening: No deficits noted. jd3 Tuberculosis screening: No symptoms or risk factors identified. Fall Risk Ambulatory Aid- None/Bed Rest/Nurse Assist (0 pts). Gait- Normal/Bed Rest/Wheelchair (0 pts) Mental Status- Oriented to own ability (0 pts). Total Kirby Fall Scale indicates No Risk (0-24 pts). Assessment: 23:38 General: Appears in no apparent distress. uncomfortable, Behavior is calm, cooperative, jd3 appropriate for age. Pain: Complains of pain in abdomen Quality of pain is described as aching, crampy, tender. Neuro: Level of Consciousness is awake, alert, obeys commands, Oriented to person, place, time, situation. Cardiovascular: Denies chest pain, Capillary refill < 3 seconds Patient's skin is warm and dry. Respiratory: Airway is patent Respiratory effort is even, unlabored, Respiratory pattern is regular, symmetrical, Denies cough, shortness of breath. GI: Abdomen is round non-distended, Bowel sounds present X 4 quads. Abd is soft X 4 quads Abdomen is tender to palpation X 4 quads. Reports nausea, vomiting. : No signs and/or symptoms were reported regarding the genitourinary system. EENT: No signs and/or symptoms were reported regarding the EENT system. Derm: Skin is intact, Skin is dry, Skin is normal, Skin temperature is warm. Musculoskeletal: Circulation, motion, and sensation intact. Range of motion: intact in all extremities, Swelling present in right leg and left leg. 01/05 00:49 Reassessment: Patient appears in no apparent distress at this time. No changes from jd3 previously documented assessment. Patient and/or family updated on plan of care and expected duration. Pain level reassessed. Patient is alert, oriented x 3, equal unlabored respirations, skin warm/dry/pink. 02:02 Reassessment: Patient appears in no apparent distress at this time. Patient and/or jd3 family updated on plan of care and expected duration. Pain level reassessed. Patient is alert, oriented x 3, equal unlabored respirations, skin warm/dry/pink. awaiting orders, pt resting in bed with family at bedside. 02:47 Reassessment: Patient appears in no apparent distress at this time. Patient and/or jd3 family updated on plan of care and expected duration. Pain level reassessed. Patient is alert, oriented x 3, equal unlabored respirations, skin warm/dry/pink. Patient states feeling better. Vital Signs: 01/04 23:36 BP 155 / 81; Pulse 89; Resp 17 S; Temp 97.8(TE); Pulse Ox 99% on R/A; Weight 65.77 kg jd3 (R); Height 5 ft. 2 in. (157.48 cm) (R); Pain 05/06; 01/05 00:49 BP 151 / 74; Pulse 94; Resp 17 S; Pulse Ox 97% on R/A; jd3 02:03 BP 146 / 69; Pulse 95; Resp 17 S; Pulse Ox 97% on R/A; jd3 01/04 23:36 Body Mass Index 26.52 (65.77 kg, 157.48 cm) jd3 ED Course: 01/04 23:18 Patient arrived in ED. cl3 23:22 Yomi Vasquez, RN is Primary Nurse. jd3 23:35 Mauricio Garay MD is Attending Physician. tw4 23:35 Triage completed. jd3 23:38 Arm band placed on. jd3 23:40 Patient has correct armband on for positive identification. Placed in gown. Bed in low jd3 position. Call light in reach. Side rails up X 1. Adult w/ patient. 23:52 Inserted saline lock: 22 gauge in right forearm, using aseptic technique. Blood mg2 collected. 23:58 No provider procedures requiring assistance completed. mg2 01/05 02:47 IV discontinued, intact, bleeding controlled, No redness/swelling at site. Pressure jd3 dressing applied. Administered Medications: 01/04 23:57 Drug: NS 0.9% 1000 ml Route: IV; Rate: 1 bolus; Site: right forearm; mg2 01/05 00:55 Follow up: Response: No adverse reaction; IV Status: Completed infusion; IV Intake: jd3 1000ml 01/04 23:57 Drug: Zofran (Ondansetron) 4 mg Route: IVP; Site: right forearm; mg2 01/05 00:55 Follow up: Response: No adverse reaction jd3 Intake: 00:55 IV: 1000ml; Total: 1000ml. jd3 Outcome: 02:31 Discharge ordered by . tw4 02:46 Discharged to home ambulatory, with family. jd3 02:46 Condition: stable 02:46 Discharge instructions given to patient, family, Instructed on discharge instructions, follow up and referral plans. medication usage, Demonstrated understanding of instructions, follow-up care, medications, Prescriptions given X 1. 02:49 Patient left the ED. jd3 Signatures: Yomi Vasquez RN RN jd3 Mauricio Garay MD MD tw4 Jc Cervantes RN RN mg2 Mohini Stephens cl3 Corrections: (The following items were deleted from the chart) 02:49 01/04 23:38 Musculoskeletal: Circulation, motion, and sensation intact. Range of jd3 motion: intact in all extremities, jd3
--- NOTE | 2020-01-06 02:32 | EDPHYS ---
Physician Documentation [facility] Name: Mercedes Marin Age: 39 yrs Sex: Female : 1980 Arrival Date: 01/05/2020 Time: 23:18 Bed 18 Private MD: ED Physician Mauricio Garay HPI: 01/05 00:03 This 39 yrs old Female presents to ER via Ambulatory with complaints of tw4 Abdominal Pain. 00:03 The patient presents to the emergency department with nausea, vomiting. tw4 00:03 Onset: The symptoms/episode began/occurred this morning. Possible causes: unknown. The tw4 symptoms are aggravated by nothing. The symptoms are alleviated by nothing. Associated signs and symptoms: Pertinent positives: abdominal pain, Pertinent negatives: anorexia, belching, constipation, diarrhea, dysuria, fever, flatulence, GI bleeding, hematuria, vaginal discharge. Severity of symptoms: At their worst the symptoms were moderate in the emergency department the symptoms are unchanged. The patient has experienced similar episodes in the past, chronically. 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 - Social history:: Smoking status: Patient denies any tobacco usage or history of. ROS: 01/05 00:03 Constitutional: Negative for fever, chills, and weight loss, Eyes: Negative for injury, tw4 pain, redness, and discharge, Cardiovascular: Negative for chest pain, palpitations, and edema, Respiratory: Negative for shortness of breath, cough, wheezing, and pleuritic chest pain, Back: Negative for injury and pain, MS/Extremity: Negative for injury and deformity, Skin: Negative for injury, rash, and discoloration, Neuro: Negative for headache, weakness, numbness, tingling, and seizure. Abdomen/GI: Positive for abdominal pain, nausea and vomiting, nausea, vomiting, and diarrhea, nausea, vomiting, Negative for constipation, abdominal cramps, abdominal distension, anorexia, dysphagia, black/tarry stool, rectal pain, rectal bleeding, bowel incontinence. Exam: 00:03 Constitutional: This is a well developed, well nourished patient who is awake, alert, tw4 and in no acute distress. Head/Face: Normocephalic, atraumatic. Chest/axilla: Normal chest wall appearance and motion. Nontender with no deformity. No lesions are appreciated. Cardiovascular: Regular rate and rhythm with a normal S1 and S2. No gallops, murmurs, or rubs. Normal PMI, no JVD. No pulse deficits. Respiratory: Lungs have equal breath sounds bilaterally, clear to auscultation and percussion. No rales, rhonchi or wheezes noted. No increased work of breathing, no retractions or nasal flaring. Back: No spinal tenderness. No costovertebral tenderness. Full range of motion. MS/ Extremity: Pulses equal, no cyanosis. Neurovascular intact. Full, normal range of motion. 00:03 Abdomen/GI: Inspection: abdomen appears normal, Bowel sounds: normal, Palpation: moderate abdominal tenderness, in the epigastric area. Vital Signs: 01/04 23:36 BP 155 / 81; Pulse 89; Resp 17 S; Temp 97.8(TE); Pulse Ox 99% on R/A; Weight 65.77 kg jd3 (R); Height 5 ft. 2 in. (157.48 cm) (R); Pain 05/06; 01/05 00:49 BP 151 / 74; Pulse 94; Resp 17 S; Pulse Ox 97% on R/A; jd3 02:03 BP 146 / 69; Pulse 95; Resp 17 S; Pulse Ox 97% on R/A; jd3 01/04 23:36 Body Mass Index 26.52 (65.77 kg, 157.48 cm) jd3 MDM: 01/04 23:35 Patient medically screened. tw4 01/05 02:25 Differential diagnosis: Nonspecific abd pain, pancreatitis, viral gastroenteritis, tw4 gastroenteritis. Data reviewed: vital signs, nurses notes. Data interpreted: Pulse oximetry: Interpretation: normal. Test interpretation: by ED physician or midlevel provider: not applicable. Counseling: I had a detailed discussion with the patient and/or guardian regarding: the historical points, exam findings, and any diagnostic results supporting the discharge/admit diagnosis. Medication response: Zofran relieved the patient's nausea. Response to treatment: and as a result, I will discharge patient. Special discussion: I discussed with the patient/guardian in detail that at this point there is no indication for admission to the hospital. It is understood, however, that if the symptoms persist or worsen the patient needs to return immediately for re-evaluation. 01/04 23:37 Order name: Basic Metabolic Panel; Complete Time: :58 01/05 01:58 Interpretation: Normal except: CRE 2.43; K 5.2; GLUC 126; BUN 30; GFR 22. tw01/04 23:37 Order name: CBC with Diff; Complete Time: :58 01/05 01:58 Interpretation: Normal except: WBC 8.1; RBC 3.28; HGB 8.9; HCT 27.2; PLT 278. 01/04 23:37 Order name: Creatinine for Radiology; Complete Time: :58 01/05 01:59 Interpretation: Normal except: CRE 2.41; GFR 22. 01/04 23:37 Order name: Hepatic Function; Complete Time: :58 tw01/05 01:59 Interpretation: Normal except: AST 9; TP 5.8; ALB 2.7; A/G 0.9. 01/04 23:37 Order name: Lipase; Complete Time: :58 01/05 01:59 Interpretation: Within normal limits: LIP 47. 01/05 00:08 Order name: Glucose, Ancillary Testing; Complete Time: :58 EDNJ 01/05 01:59 Interpretation: Within normal limits: GLUC,ANCIL 122. 01/04 23:37 Order name: IV Saline Lock; Complete Time: 23:54 tw4 01/04 23:37 Order name: Labs collected and sent; Complete Time: 23:54 4 Administered Medications: 01/04 23:57 Drug: NS 0.9% 1000 ml Route: IV; Rate: 1 bolus; Site: right forearm; mg2 01/05 00:55 Follow up: Response: No adverse reaction; IV Status: Completed infusion; IV Intake: jd3 1000ml 01/04 23:57 Drug: Zofran (Ondansetron) 4 mg Route: IVP; Site: right forearm; mg2 01/05 00:55 Follow up: Response: No adverse reaction jd3 Disposition: 01/06/20 02:31 Discharged to Home. Impression: Dehydration, Nausea and vomiting. - Condition is Stable. - Discharge Instructions: Dehydration, Adult, Nausea and Vomiting, Adult. - Prescriptions for Zofran 4 mg Oral Tablet - take 1 tablet by ORAL route every 12 hours As needed; 20 tablet. - Medication Reconciliation Form, Thank You Letter, Antibiotic Education, Prescription Opioid Use form. - Follow up: Private Physician; When: Upon discharge from the Emergency Department; Reason: Recheck today's complaints, Continuance of care, Re-evaluation by your physician. - Problem is new. - Symptoms have improved. 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 Impression: Dehydration; Nausea and jd3 vomiting. Condition is Stable. Forms are Medication Reconciliation Form, Thank You Letter, Antibiotic Education, Prescription Opioid Use. Follow up: Private Physician; When: Upon discharge from the Emergency Department; Reason: Recheck today's complaints, Continuance of care, Re-evaluation by your physician. Problem is new. Symptoms have improved. tw4
[2020-01-06 02:54] VITALS: TEMP 97.8
[2020-01-06 02:55] VITALS: O2SAT 97
[2020-01-06 02:57] VITALS: BP 146/69
== END 2020-01-06 02:49 | disposition home or self-care (01) ==
LOC: ER 23:15
DX: R11.2 Nausea with vomiting, unspecified (principal); E86.0 Dehydration; E11.9 Type 2 diabetes mellitus without complications; Z79.4 Long term (current) use of insulin
CPT/HCPCS: 36415; 80048; 80076; 82947; 83690; 85025; 96361; 96374; 99284; J2405; J7030

== ENCOUNTER 2020-01-06 10:30 | Emergency (ER) | payer SELFPAY ==
--- OUTSIDE RECORDS SUMMARY | 2020-01-06 10:32 | XMS REPORT ---
:1980 Author [facility] Address [address] [place] [address] [address] [place] [address] Care Team Providers Name Role Phone Unavailable Unavailable Unavailable Problems This patient has no known problems. Allergies, Adverse Reactions, Alerts This patient has no known allergies or adverse reactions. Medications This patient has no known medications.
[2020-01-06] MEDS ORDERED: METOCLOPRAMIDE 10 MG/2mL INJ ONE (10:56)
[2020-01-06] MEDS ORDERED: NA CHLORIDE 0.9% 1,000 ML ONE (10:56)
[2020-01-06] MEDS ORDERED: MEPERIDINE HCL 25 MG/ML SYR ONE (10:56)
[2020-01-06] MEDS ORDERED: ONDANSETRON 4 MG/2 ML VIAL ONE (12:45)
--- NOTE | 2020-01-06 13:44 | EDPHYS ---
Physician Documentation [facility] Name: Mercedes Marin Age: 39 yrs Sex: Female : 1980 Arrival Date: 01/06/2020 Time: 10:32 Bed 8 Private MD: ED Physician Washington Shaffer HPI: 01/05 10:50 This 39 yrs old Female presents to ER via Ambulatory with complaints of la1 Vomiting. 10:50 The patient presents to the emergency department with nausea, vomiting. Onset: The la1 symptoms/episode began/occurred yesterday. Possible causes: flare up of bowel problem, gastroparesis. The symptoms are aggravated by food . Associated signs and symptoms: Pertinent negatives: belching, constipation, diarrhea, fever, GI bleeding. Severity of symptoms: At their worst the symptoms were moderate. The patient has experienced similar episodes in the past, chronically. pt was seen here early this morning, was able to tolerate PO fluids at discharge but then went home and began vomiting again, unable to hold down nausea meds. CONTENT STRATEGY LEAD: 10:41 LMP N/A - . tw2 Historical: - Allergies: 10:42 No Known Allergies; tw2 - Home Meds: 10:42 Metoprolol Tartrate Oral [Active]; Novolin 70/30 [place] Sub-Q [Active]; tw2 - PMHx: 10:42 Diabetes - IDDM; Hypertension; Pancreatitis; tw2 - PSHx: 10:42 Cholecystectomy; tw2 - Immunization history:: Adult Immunizations. - Social history:: Smoking status: . ROS: 10:52 Constitutional: Negative for fever, chills, and weight loss, Eyes: Negative for injury, la1 pain, redness, and discharge, ENT: Negative for injury, pain, and discharge, Neck: Negative for injury, pain, and swelling, Cardiovascular: Negative for chest pain, palpitations, and edema, Respiratory: Negative for shortness of breath, cough, wheezing, and pleuritic chest pain. 10:52 Back: Negative for injury and pain, MS/Extremity: Negative for injury and deformity, Skin: Negative for injury, rash, and discoloration, Neuro: Negative for headache, weakness, numbness, tingling, and seizure. 10:52 Abdomen/GI: Positive for abdominal pain, nausea and vomiting, Negative for abdominal distension, hematemesis, black/tarry stool, rectal pain, rectal bleeding, bowel incontinence. Exam: 10:56 Constitutional: This is a well developed, well nourished patient who is awake, alert, la1 and in no acute distress. Head/Face: Normocephalic, atraumatic. Eyes: Pupils equal round and reactive to light, extra-ocular motions intact. Chest/axilla: Normal chest wall appearance and motion. Nontender with no deformity. No lesions are appreciated. Cardiovascular: Regular rate and rhythm with a normal S1 and S2. No gallops, murmurs, or rubs. Normal PMI, no JVD. No pulse deficits. Respiratory: Lungs have equal breath sounds bilaterally, clear to auscultation 10:56 Abdomen/GI: Inspection: abdomen appears normal, Bowel sounds: normal, in all quadrants, Palpation: soft, in all quadrants, mild abdominal tenderness, in the epigastric area, Indicators: Vital Signs: 10:39 Pain 8/10; tw2 10:41 BP 170 / 78; Pulse 102; Resp 18; Pulse Ox 100% on R/A; tw2 10:43 Temp 98.1(O); tw2 11:50 BP 163 / 86; Pulse 105; Resp 17; Pulse Ox 100% on R/A; tw2 12:50 BP 149 / 81; Pulse 101; Resp 17; Pulse Ox 99% on R/A; tw2 13:54 BP 148 / 83; Pulse 92; Resp 17; Pulse Ox 100% on R/A; tw2 MDM: 10:38 Patient medically screened. la1 13:40 Data reviewed: vital signs, nurses notes, old medical records, reviewed labs from early la1 this morning at 0200 and as a result, I will discharge patient. Data interpreted: Pulse oximetry: on room air is 99 %. Interpretation: normal. 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 Medication response: Zofran relieved the patient's nausea. Response to treatment: the patient's symptoms have markedly improved after treatment, the patient's condition has returned to base line, patient is well hydrated. and as a result, I will discharge patient. Special discussion: Based on the patient's Hx, exam, and Dx evaluation, there is no indication for emergent surgery or inpatient Tx. It is understood by the patient/guardian that if the Sx's persist or worsen they need to return immediately for re-evaluation. ED course: Pt tolerating PO, states she is feeling much better, will D/C with RX for phenergan and bentyl, strict return precautions given, pt now denies abd pain, denies nausea. . 01/05 10:46 Order name: IV; Complete Time: 12:10 la1 01/05 12:48 Order name: PO challenge: \T\ 1305; Complete Time: 13:54 tw2 Administered Medications: 12:10 Drug: NS 0.9% 500 ml Route: IV; Rate: bolus; Site: right antecubital; hb 12:47 Follow up: Response: No adverse reaction; IV Status: Completed infusion; IV Intake: tw2 500ml 12:10 Drug: Reglan 10 mg Route: IVP; Site: right antecubital; hb 12:47 Follow up: Response: No adverse reaction tw2 12:11 Drug: Demerol 25 mg Route: IVP; Site: right antecubital; hb 12:47 Follow up: Response: No adverse reaction; Pain is decreased; RASS: Drowsy (-1) tw2 12:46 Drug: Zofran (Ondansetron) 4 mg Route: IVP; Site: right antecubital; tw2 Disposition: 16:35 Co-signature as Attending Physician, Washington Shaffer MD I agree with the assessment and kdr plan of care. Disposition: 01/06/20 13:43 Discharged to Home. Impression: Abdominal and pelvic pain, Nausea and vomiting. - Condition is Stable. - Discharge Instructions: Abdominal Pain, Adult, Nausea and Vomiting, Adult, Gastroparesis. - Prescriptions for Bentyl 20 mg Oral Tablet - take 1 tablet by ORAL route every 6 hours As needed; 20 tablet. promethazine 25 mg Oral Tablet - take 1 tablet by ORAL route every 6 hours As needed; 20 tablet. - Medication Reconciliation Form, Thank You Letter form. - Follow up: Private Physician; When: 2 - 3 days; Reason: Recheck today's complaints, Re-evaluation by your physician. Follow up: Emergency Department; When: As needed; Reason: unable to tolerate water by mouth or worsening abdominal pain. - Problem is an acute exacerbation. - Symptoms have worsened. Signatures: Washington Shaffer MD MD [facility] Olegario Hernández, HELPER STEEL FABRICATION-C HELPER STEEL FABRICATION-Cla1 Griselda Shields, WALDEMAR RN Fabienne Trejo RN RN tw2 Corrections: (The following items were deleted from the chart) 14:04 13:43 01/06/2020 13:43 Discharged to Home. Impression: Abdominal and pelvic pain; tw2 Nausea and vomiting. Condition is Stable. Forms are Medication Reconciliation Form, Thank You Letter, Antibiotic Education, Prescription Opioid Use. Follow up: Private Physician; When: 2 - 3 days; Reason: Recheck today's complaints, Re-evaluation by your physician. Follow up: Emergency Department; When: As needed; Reason: unable to tolerate water by mouth or worsening abdominal pain. Problem is an acute exacerbation. Symptoms have worsened. la1
--- NOTE | 2020-01-06 13:44 | ER ---
Nurse's Notes [facility] Name: Mercedes Marin Age: 39 yrs Sex: Female : 1980 Arrival Date: 01/06/2020 Time: 10:32 Bed 8 Private MD: Diagnosis: Abdominal and pelvic pain;Nausea and vomiting Presentation: 01/05 10:39 Chief complaint: Patient's son or daughter states: my dad brought her in last night she tw2 was vomiting, they gave her some medicine but she was up all night vomiting and hasnt been able to take the medicine to help her. Coronavirus screen: The patient has NOT traveled to a country currently being monitored by the [facility] within the last 14 days. Ebola Screen: Patient negative for fever greater than or equal to 101.5 degrees Fahrenheit, and additional compatible Ebola Virus Disease symptoms. Initial Sepsis Screen: Does the patient meet any 2 criteria? No. Patient's initial sepsis screen is negative. Does the patient have a suspected source of infection? No. Patient's initial sepsis screen is negative. Risk Assessment: Do you want to hurt yourself or someone else? Patient reports no desire to harm self or others. 10:39 Method Of Arrival: Ambulatory tw2 10:39 Acuity: ALONDRA 3 tw2 10:43 Onset of symptoms was January 06, 2020. tw2 Triage Assessment: 10:41 General: Appears uncomfortable, slender, Behavior is calm, cooperative, appropriate for tw2 age. Pain: Complains of pain in abdomen. GI: Reports intolerance of fluids, intolerance of food, nausea, vomiting. 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 tw2 Historical: - Allergies: 10:42 No Known Allergies; tw2 - Home Meds: 10:42 Metoprolol Tartrate Oral [Active]; Novolin 70/30 [place] Sub-Q [Active]; tw2 - PMHx: 10:42 Diabetes - IDDM; Hypertension; Pancreatitis; tw2 - PSHx: 10:42 Cholecystectomy; tw2 - Immunization history:: Adult Immunizations. - Social history:: Smoking status: . Screenin:42 Abuse screen: Denies threats or abuse. Nutritional screening: No deficits noted. tw2 Tuberculosis screening: No symptoms or risk factors identified. Fall Risk None identified. Assessment: 10:55 General: Appears in no apparent distress. Behavior is calm, cooperative. Pain: Pain hb currently is 8 out of 10 on a pain scale. Neuro: Level of Consciousness is awake, alert, obeys commands, Oriented to person, place, time, situation. Cardiovascular: Capillary refill < 3 seconds Patient's skin is warm and dry. Respiratory: Airway is patent Respiratory effort is even, unlabored, Respiratory pattern is regular, symmetrical, Breath sounds are clear bilaterally. GI: Abdomen is non-distended, Bowel sounds present X 4 quads. Abdomen is tender to palpation in epigastric area Reports nausea, vomiting. : No signs and/or symptoms were reported regarding the genitourinary system. EENT: No signs and/or symptoms were reported regarding the EENT system. Derm: Skin is pink, warm \T\ dry. Musculoskeletal: No signs and/or symptoms reported regarding the musculoskeletal system. 11:42 Reassessment: Unable to establish PIV access, JACK SPINNER Olegario at bedside for US guided IV. hb 12:49 Reassessment: Patient appears in no apparent distress at this time. Patient and/or tw2 family updated on plan of care and expected duration. Pain level reassessed. Patient is alert, oriented x 3, equal unlabored respirations, skin warm/dry/pink. Patient states feeling better. Patient states symptoms have improved. 13:24 Reassessment: Patient appears in no apparent distress at this time. Patient and/or hb family updated on plan of care and expected duration. Pain level reassessed. Patient is alert, oriented x 3, equal unlabored respirations, skin warm/dry/pink. 13:30 Reassessment: Patient appears in no apparent distress at this time. Patient and/or tw2 family updated on plan of care and expected duration. Pain level reassessed. Patient is alert, oriented x 3, equal unlabored respirations, skin warm/dry/pink. pt tolerated PO challenge well, nad, provider notified Patient states feeling better. Vital Signs: 10:39 Pain 8/10; tw2 10:41 BP 170 / 78; Pulse 102; Resp 18; Pulse Ox 100% on R/A; tw2 10:43 Temp 98.1(O); tw2 11:50 BP 163 / 86; Pulse 105; Resp 17; Pulse Ox 100% on R/A; tw2 12:50 BP 149 / 81; Pulse 101; Resp 17; Pulse Ox 99% on R/A; tw2 13:54 BP 148 / 83; Pulse 92; Resp 17; Pulse Ox 100% on R/A; tw2 ED Course: 10:32 Patient arrived in ED. ag5 10:34 Olegario Hernández FNP-C is [facility]. la1 10:34 Washington Shaffer MD is Attending Physician. la1 10:39 Fabienne Trejo RN is Primary Nurse. tw2 10:41 Triage completed. tw2 10:41 Arm band placed on. tw2 10:43 Bed in low position. Call light in reach. tw2 11:16 Missed attempt(s): 22 gauge in right antecubital area. Bleeding controlled, band aid tw2 applied, catheter tip intact. Missed attempt(s): 22 gauge in left antecubital area. Bleeding controlled, band aid applied, catheter tip intact. 11:27 Missed attempt(s): 22 gauge in left antecubital area. jb1 11:27 Missed attempt(s): 24 gauge in right antecubital area. jb1 11:36 Missed attempt(s): 22 gauge in right forearm. Bleeding controlled, band aid applied, hb catheter tip intact. 12:10 Inserted saline lock: 20 gauge in right antecubital area, using aseptic technique. tw2 ,using aseptic technique. using US guided iv performed by PJ Melvin. 14:03 No provider procedures requiring assistance completed. IV discontinued, intact, tw2 bleeding controlled, No redness/swelling at site. Pressure dressing applied. Administered Medications: 12:10 Drug: NS 0.9% 500 ml Route: IV; Rate: bolus; Site: right antecubital; hb 12:47 Follow up: Response: No adverse reaction; IV Status: Completed infusion; IV Intake: tw2 500ml 12:10 Drug: Reglan 10 mg Route: IVP; Site: right antecubital; hb 12:47 Follow up: Response: No adverse reaction tw2 12:11 Drug: Demerol 25 mg Route: IVP; Site: right antecubital; hb 12:47 Follow up: Response: No adverse reaction; Pain is decreased; RASS: Drowsy (-1) tw2 12:46 Drug: Zofran (Ondansetron) 4 mg Route: IVP; Site: right antecubital; tw2 Intake: 12:47 IV: 500ml; Total: 500ml. tw2 Outcome: 13:43 Discharge ordered by . la1 14:03 Discharged to home ambulatory, with family. tw2 14:03 Condition: stable 14:03 Discharge instructions given to patient, family, Instructed on discharge instructions, follow up and referral plans. no drinking with medication, no driving heavy equipment, medication usage, Demonstrated understanding of instructions, follow-up care, medications. 14:04 Patient left the ED. tw2 Signatures: Bismark Galindo1 Olegario Hernández, COLLARETTE SEPARATOR-C COLLARETTE SEPARATOR-Cla1 Griselda Shielsd, RN RN Fabienne Trejo RN RN tw2 Nichelle Patrick ag5
[2020-01-06 14:28] VITALS: TEMP 98.1
[2020-01-06 14:33] VITALS: BP 148/83; O2SAT 100
== END 2020-01-06 14:04 | disposition home or self-care (01) ==
LOC: ER 10:30
DX: R10.9 Unspecified abdominal pain (principal); R10.2 Pelvic and perineal pain; E11.9 Type 2 diabetes mellitus without complications; Z79.4 Long term (current) use of insulin
CPT/HCPCS: 96361; 96374; 96375; 99283; J2175; J2405; J2765; J7030

== ENCOUNTER 2020-01-17 15:29 | Emergency (ER) | payer SELFPAY ==
--- OUTSIDE RECORDS SUMMARY | 2020-01-17 15:31 | XMS REPORT ---
:1980 [facility] Address [address] [place] [address] [address] [place] [address] Care Team Providers Name Role Phone Unavailable Unavailable Unavailable Problems This patient has no known problems. Allergies, Adverse Reactions, Alerts This patient has no known allergies or adverse reactions. Medications This patient has no known medications.
--- NOTE | 2020-01-17 16:47 | ER ---
Nurse's Notes [facility] Name: Mercedes Marin Age: 39 yrs Sex: Female : 1980 Arrival Date: 01/17/2020 Time: 15:32 Bed 24 Private MD: Diagnosis: Cough;Chest pain on breathing Presentation: 01/16 15:41 Chief complaint: Patient states: dry cough for 3 days and pain in chest with cough. ls4 15:41 Coronavirus screen: Patient denies fever greater than 100.4F, cough, shortness of ls4 breath, or difficulty breathing. Proceed with normal triage process. Ebola Screen: No symptoms or risks identified at this time. Initial Sepsis Screen: Does the patient meet any 2 criteria? No. Patient's initial sepsis screen is negative. Does the patient have a suspected source of infection? No. Patient's initial sepsis screen is negative. Risk Assessment: Do you want to hurt yourself or someone else? Patient reports no desire to harm self or others. Care prior to arrival: None. 15:41 Method Of Arrival: Ambulatory ls4 16:18 Acuity: ALONDRA 4 ls4 Triage Assessment: 16:16 General: Appears in no apparent distress. comfortable, Behavior is calm, cooperative. ls4 Pain: Denies pain. EENT: No deficits noted. Neuro: No deficits noted. Cardiovascular: No deficits noted. Reports chest pain, chest pain with cough. Respiratory: Reports cough that is non-productive, dry, Airway is patent Respiratory effort is even, unlabored, Respiratory pattern is regular, Sputum is Breath sounds are clear bilaterally. the patient has mild shortness of breath Denies fever. GI: No deficits noted. No signs and/or symptoms were reported involving the gastrointestinal system. : No deficits noted. No signs and/or symptoms were reported regarding the genitourinary system. Derm: No deficits noted. No signs and/or symptoms reported regarding the dermatologic system. Musculoskeletal: No deficits noted. No signs and/or symptoms reported regarding the musculoskeletal system. Historical: - Allergies: 16:16 No Known Allergies; ls4 - Home Meds: 16:16 Metoprolol Tartrate Oral [Active]; Novolin 70/30 [place] Sub-Q [Active]; ls4 - PMHx: 16:16 Diabetes - IDDM; Hypertension; Pancreatitis; ls4 - PSHx: 16:16 Cholecystectomy; ls4 - Immunization history:: Adult Immunizations up to date. - Social history:: Smoking status: Patient denies any tobacco usage or history of. Screenin:58 Abuse screen: Denies threats or abuse. Denies injuries from another. Nutritional ls4 screening: No deficits noted. Tuberculosis screening: No symptoms or risk factors identified. Fall Risk None identified. Assessment: 15:41 General: SEE TRIAGE ASSESSMENT . ls4 16:20 EENT: Throat is clear. ls4 16:20 Respiratory: Airway is patent Respiratory effort is even, unlabored. ls4 16:20 Respiratory: Reports cough that is pain with cough Airway is patent Respiratory effort ls4 is even, unlabored, Breath sounds are clear bilaterally. Denies shortness of breath at rest, on exertion. 16:45 Reassessment: Patient appears in no apparent distress at this time. Patient and/or ls4 family updated on plan of care and expected duration. Pain level reassessed. Patient is alert, oriented x 3, equal unlabored respirations, skin warm/dry/pink. Vital Signs: 15:56 BP 145 / 83; Pulse 93; Resp 16; Temp 98.2(O); Pulse Ox 100% ; lt1 16:58 BP 144 / 74; Pulse 92; Resp 17; Pulse Ox 99% on R/A; Pain 0/10; ls4 ED Course: 15:32 Patient arrived in ED. as 15:41 Olegario Hern[facility]dez [facility]-C [facility] la1 15:41 Washington Shaffer MD is Attending Physician. la1 15:41 No provider procedures requiring assistance completed. Patient maintains SpO2 ls4 saturation greater than 95% on room air. 15:41 Patient has correct armband on for positive identification. Bed in low position. Call ls4 light in reach. Side rails up X 1. 15:41 printed circuit board panels trimmer on. Pulse ox on. NIBP on. Warm blanket given. Verbal reassurance given. ls4 15:41 Arm band placed on. EKG completed in triage. Results shown to MD. ls4 15:57 EKG done, by ED staff. lt1 15:58 Codi Macias RN is Primary Nurse. ls4 16:10 Flu Sent. lt1 16:10 Strep Sent. lt1 16:19 Triage completed. ls4 16:27 Chest Pa And Lat (2 Views) XRAY In Process Unspecified. EDMS 17:11 Patient did not have IV access during this emergency room visit. ls4 Administered Medications: No medications were administered Outcome: 16:46 Discharge ordered by MD. la1 17:11 Discharged to home ambulatory, with family. ls4 17:11 Condition: stable 17:11 Discharge instructions given to patient, family, Instructed on discharge instructions, follow up and referral plans. Demonstrated understanding of instructions, follow-up care, medications, Prescriptions given X 1. 17:13 Patient left the ED. ls4 Signatures: Dispatcher [employer] EDMS Eloina Isabel Lee, SIZE TESTER-C SIZE TESTER-Cla1 Codi Macias RN RN ls4 Sofya Stephenson lt1 Corrections: (The following items were deleted from the chart) 03 00:00 03 17:00 Reassessment: Patient appears in no apparent distress at this time. Patient ls4 and/or family updated on plan of care and expected duration. Pain level reassessed. Patient is alert, oriented x 3, equal unlabored respirations, skin warm/dry/pink. ls4
--- NOTE | 2020-01-17 16:47 | EDPHYS ---
Physician Documentation [facility] Name: Mercedes Marin Age: 39 yrs Sex: Female : 1980 Arrival Date: 01/17/2020 Time: 15:32 Bed 24 Private MD: ED Physician Washington Shaffer HPI: 01/16 16:05 This 39 yrs old Female presents to ER via Unassigned with complaints of Cough, la1 Sore Throat, Chest Pain. 16:05 The patient or guardian reports cough. Onset: The symptoms/episode began/occurred 4 la1 day(s) ago. Severity of symptoms: At their worst the symptoms were moderate. Associated signs and symptoms: Pertinent negatives: fever. The patient has not experienced similar symptoms in the past. Historical: - Allergies: 16:16 No Known Allergies; ls4 - Home Meds: 16:16 Metoprolol Tartrate Oral [Active]; Novolin 70/30 [place] Sub-Q [Active]; ls4 - PMHx: 16:16 Diabetes - IDDM; Hypertension; Pancreatitis; ls4 - PSHx: 16:16 Cholecystectomy; ls4 - Immunization history:: Adult Immunizations up to date. - Social history:: Smoking status: Patient denies any tobacco usage or history of. ROS: 16:05 Constitutional: Negative for fever, chills, and weight loss, Eyes: Negative for injury, la1 pain, redness, and discharge, Cardiovascular: Negative for chest pain, palpitations, and edema, Abdomen/GI: Negative for abdominal pain, nausea, vomiting, diarrhea, and constipation, Back: Negative for injury and pain, MS/Extremity: Negative for injury and deformity, Neuro: Negative for headache, weakness, numbness, tingling, and seizure. 16:05 Respiratory: Positive for cough. Exam: 16:06 Constitutional: This is a well developed, well nourished patient who is awake, alert, la1 and in no acute distress. Head/Face: Normocephalic, atraumatic. Eyes: Pupils equal round and reactive to light, extra-ocular motions intact. Chest/axilla: Normal chest wall motion. Cardiovascular: Regular rate and rhythm with a normal S1 and S2. Respiratory: Lungs have equal breath sounds bilaterally, clear to auscultation Back: No spinal tenderness. No costovertebral tenderness. Full range of motion. Skin: Warm, dry with normal turgor. Normal color with no rashes, no lesions, and no evidence of cellulitis. MS/ Extremity: Pulses equal, no cyanosis. Neurovascular intact. Full, normal range of motion. Neuro: Awake and alert, GCS 15, oriented to person, place, time, and situation. 16:07 ECG was reviewed by the Attending Physician. la1 Vital Signs: 15:56 BP 145 / 83; Pulse 93; Resp 16; Temp 98.2(O); Pulse Ox 100% ; lt1 16:58 BP 144 / 74; Pulse 92; Resp 17; Pulse Ox 99% on R/A; Pain 0/10; ls4 MDM: 15:42 Patient medically screened. la1 16:46 Data reviewed: vital signs, nurses notes, lab test result(s), radiologic studies, and la1 as a result, I will discharge patient. Data interpreted: Pulse oximetry: on room air is 100 %. Interpretation: normal. Counseling: I had a detailed discussion with the patient and/or guardian regarding: the historical points, exam findings, and any diagnostic results supporting the discharge/admit diagnosis, lab results, radiology results, the need for outpatient follow up, a family practitioner, to return to the emergency department if symptoms worsen or persist or if there are any questions or concerns that arise at home. Special discussion: Based on the patient's Hx, exam, and Dx evaluation, there is no indication for emergent surgery or inpatient Tx. It is understood by the patient/guardian that if the Sx's persist or worsen they need to return immediately for re-evaluation. 01/16 16:04 Order name: Flu la1 01/16 16:05 Order name: Strep la1 01/16 16:04 Order name: Chest Pa And Lat (2 Views) XRAY 01/16 16:04 Order name: EKG; Complete Time: 16:06 01/16 16:04 Order name: EKG - Nurse/Tech; Complete Time: 16:06 01/16 16:31 Order name: Throat Culture EDMS EC:07 Rate is 94 beats/min. Rhythm is regular, Normal Sinus Rhythm. Left axis deviation la1 noted. [place] interval is normal. QRS interval is normal. QT interval is prolonged at 452 msec. No Q waves. T waves are Normal. No ST changes noted. Clinical impression: NO STEMI. Interpreted by me. Reviewed by me. Administered Medications: No medications were administered Disposition: 18:11 Co-signature as Attending Physician, Washington Shaffer MD I agree with the assessment and kdr plan of care. Disposition: 01/17/20 16:46 Discharged to Home. Impression: Cough, Chest pain on breathing. - Condition is Stable. - Discharge Instructions: Costochondritis, Cough, Adult. - Prescriptions for Tessalon Perles 100 mg Oral Capsule - take 1 capsule by ORAL route every 8 hours As needed; 15 capsule. - Medication Reconciliation Form, Thank You Letter form. - Follow up: Private Physician; When: 2 - 3 days; Reason: Recheck today's complaints, Continuance of care, Re-evaluation by your physician. Follow up: Emergency Department; When: As needed; Reason: Fever > 102 F, Trouble breathing, Worsening of condition. - Problem is new. - Symptoms are unchanged. Signatures: Dispatcher [employer] EDRI Washington Shaffer MD MD [facility] Olegario Hernández, REPEATER CHIEF-C REPEATER CHIEF-Cla1 Codi Macias, RN RN ls4 Corrections: (The following items were deleted from the chart) 17:13 16:46 01/17/2020 16:46 Discharged to Home. Impression: Cough; Chest pain on breathing. ls4 Condition is Stable. Forms are Medication Reconciliation Form, Thank You Letter, Antibiotic Education, Prescription Opioid Use. Follow up: Private Physician; When: 2 - 3 days; Reason: Recheck today's complaints, Continuance of care, Re-evaluation by your physician. Follow up: Emergency Department; When: As needed; Reason: Fever > 102 F, Trouble breathing, Worsening of condition. Problem is new. Symptoms are unchanged. la1
--- NOTE | 2020-01-17 17:17 | RAD REPORT ---
EXAM DESCRIPTION: RAD - Chest Pa And Lat (2 Views) - 01/17/2020 4:27 pm CLINICAL HISTORY: COUGH, chest pain, sore throat COMPARISON: Chest film October 30 TECHNIQUE: Frontal and lateral views of the chest were obtained. FINDINGS: The lungs are clear of focal mass or consolidation. Trace stranding in each base is most l ikely minimal atelectasis. Heart size is normal and central vasculature is within normal limits. N o pneumothorax is present. No measurable pleural effusion. No acute bony finding noted. No aortic ab normality. IMPRESSION: Minimal lung base atelectasis. No pneumonia or other acute finding seen at this time.
[2020-01-17 17:18] VITALS: TEMP 98.2
[2020-01-17 17:20] VITALS: BP 144/74; O2SAT 99
--- NOTE | 2020-01-18 07:25 | EKG ---
Test Date: 2020-01-17 Test Time: 15:48:49 Loss Control Representative: TAY MEASUREMENT RESULTS: Intervals: Rate: 94 CA: 134 QRSD: 64 QT: 362 QTc: 452 [place]: P: 41 CA: 134 QRS: -9 T: 95 INTERPRETIVE STATEMENTS: Normal sinus rhythm Cannot rule out Anterior infarct, age undetermined Abnormal ECG Compared to ECG 12/31/2019 00:02:01 No significant changes Electronically Signed On 01-18-20 07:24:41 CDT by Marquez Walter
== END 2020-01-17 17:13 | disposition home or self-care (01) ==
LOC: ER 15:29
DX: R07.1 Chest pain on breathing (principal); E11.9 Type 2 diabetes mellitus without complications; I10 Essential (primary) hypertension
CPT/HCPCS: 71046; 87070; 87081; 87804; 93005; 99285

== ENCOUNTER 2020-02-10 05:09 | Emergency (ER) | payer SELFPAY ==
--- OUTSIDE RECORDS SUMMARY | 2020-02-10 05:11 | XMS REPORT ---
:1980 Author Organization [facility] t Address [address] [place] [address] [address] [place] [address] Care Team Providers Name Role Phone Unavailable Unavailable Unavailable Problems This patient has no known problems. Allergies, Adverse Reactions, Alerts This patient has no known allergies or adverse reactions. Medications This patient has no known medications.
[2020-02-10] MEDS ORDERED: MEPERIDINE HCL 25 MG/0.5 ML ONE (05:30)
[2020-02-10] MEDS ORDERED: NA CHLORIDE 0.9% 1,000 ML ONE (05:30)
[2020-02-10] MEDS ORDERED: PROMETHAZINE INJ 25 MG/ML AMP ONE ×2 (05:30→06:31)
--- OUTSIDE RECORDS SUMMARY | 2020-02-10 05:33 | XMS REPORT | Summary of Care ---
:1980 Author Organization [address] [address] Care Team Providers Name Role Phone Liv Khan Twyla Primary Care Provider Reason for Visit Reason Comments Referral/consult chp referral closed Encounter Details Date Type Department Care Team Description 02/07/2020 Patient Outreach [facility] Lila Hanna RN Referral/consult [address] (chp refer [facility] closed) [place], [place] [address] Allergies No Known Allergiesdocumented as of this encounter (statuses as of 02/07/2020) Medications Medication Sig Dispensed Refills Start Date End Date Status metoclopramide HCl 5 Take 5 mL by 473 mL 2 12/12/2019 Active mg/5 mL mouth 4 (four) solutionIndications: times daily. Intractable nausea and vomiting, Type 2 diabetes mellitus without complication, unspecified whether half-way insulin use, Nephrotic syndrome sucralfate 1 gram Take 1 tablet by 120 tablet 3 12/12/2019 Active tabletIndications: mouth before Intractable nausea and meals and at vomiting, Type 2 bedtime. diabetes mellitus without complication, unspecified whether half-way insulin use, Nephrotic syndrome erythromycin Take 4.5 mL by 200 mL 1 12/12/2019 A ctive ethylsuccinate 200 mg/5 mouth every 8 mL (eight) hours. 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 Intractable nausea and vomiting, Type 2 diabetes mellitus without complication, unspecified whether half-way insulin use, Nephrotic syndrome carvediloL 25 mg Take 1 tablet by 28 tablet 0 12/12/2019 Active tabletIndications: mouth 2 (two) Intractable nausea and times daily with vomiting, Type 2 meals. 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 vomiting, Type 2 diabetes mellitus without complication, unspecified whether half-way insulin use, Nephrotic syndrome pantoprazole 40 mg EC Take 1 tablet by 60 tablet 1 12/12/2019 Active tabletIndications: mouth 2 (two) Intractable nausea and times daily. 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 powderIndications: Intractable nausea and vomiting, Type 2 diabetes mellitus without complication, unspecified whether half-way insulin use, Nephrotic syndrome insulin NPH 100 unit/mL inject 12 Units 2 Vial 0 12/13/2019 Active injectionIndications: under the skin Type 2 diabetes every morning. 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 mellitus without complication, unspecified whether superintendent [employer] insulin use insulin regular human inject 7 Units 2 Vial 0 12/12/2019 Active 100 unit/mL under the skin 2 injectionIndications: (two) times Type 2 diabetes daily before mellitus without breakfast and complication, dinner. 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 Previously taking po medication. ICD10 Diagnosis Term Layout Mechanic Utility Rubella immune 05/07/2013 Candidiasis of vulva and vagina 05/07/2013 documented as of this encounter (statuses as of 02/07/2020) Immunizations Name Administration Dates Next Due Influenza [...] encounter Progress Notes Lila Hanna RN - 02/07/2020 12:52 PM CDTUnable to contact patient; referral for CHP is closed. NIKKO Perry, RN, [facility] Outpatient Piping ManagerThermostatic Controls SupervisorCentral Harnett Hospital O: [phone] M: [phone] documented in this encounter Plan of Treatment [...] Td Vaccines (2 - Td) 12/11/2029 12/11/2019, 0 05/07/2009 INFLUENZA VACCINE Completed 11/21/2019 documented as of this encounter Results Not on filedocumented in this encounter Insurance Payer Benefit Plan / Subscriber ID Effective Dates Phone Addre ss Type Group RMP FAMILY FAMILY PLANNING [id number] 2013-Ashley [employer] Agency PLANNING MAKENNA MAKENNA [phone]% nt [id number] [place] [address] documented as of this encounter
--- OUTSIDE RECORDS SUMMARY | 2020-02-10 05:33 | XMS REPORT | Summary of Care ---
:[address] [facility] Address [address] [place] [id number] Care Team Providers Name Role Phone Liv Khan Twyla Primary Care Provider Reason for Visit Reason Comments Follow-up per referral from [facility] Encounter Details Date Type Department Care Team Description 01/21/2020 Patient Outreach [facility] Radha Angeles Follow-up (per [address] referral f rom [facility] [place] REJI [facility] ) [place], [place] [address] Allergies No Known Allergiesdocumented as of this encounter (statuses as of 01/21/2020) Medications Medication Sig Dispensed Refills Start Date End Date Status metoclopramide HCl 5 Take 5 mL by 473 mL 2 12/12/2019 Active mg/5 mL mouth 4 (four) solutionIndications: times daily. Intractable nausea and vomiting, Type 2 diabetes mellitus without complication, unspecified whether assisted insulin use, Nephrotic syndrome sucralfate 1 gram Take 1 tablet by 120 tablet 3 12/12/2019 Active tabletIndications: mouth before Intractable nausea and meals and at vomiting, Type 2 bedtime. 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 diabetes mellitus without complication, unspecified whether assisted insulin use, Nephrotic syndrome amLODIPine 5 mg Take 1 tablet by 14 tablet 0 12/12/2019 Active tabletIndications: mouth daily. Intractable nausea and vomiting, Type 2 diabetes mellitus without complication, unspecified whether assisted insulin use, Nephrotic syndrome carvediloL 25 mg Take 1 tablet by 28 tablet 0 12/12/2019 Active tabletIndications: mouth 2 (two) Intractable nausea and times daily with vomiting, Type 2 meals. 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 vomiting, Type 2 diabetes mellitus without complication, unspecified whether assisted insulin use, Nephrotic syndrome Polyethylene Glycol Take 2 Packets 30 Packet 1 12/12/2019 Active 3350 17 gram by mouth daily. powderIndications: Intractable nausea and vomiting, Type 2 diabetes mellitus without complication, unspecified whether assisted insulin use, Nephrotic syndrome insulin NPH 100 unit/mL inject 12 Units 2 Vial 0 12/13/2019 Active injectionIndications: under the skin Type 2 diabetes every morning. 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 unspecified whether assisted insulin use traMADol 50 mg Take 1 [...] as of this encounter (statuses as of 01/21/2020) Active Problems Problem Noted Date Intractable nausea and vomiting 11/15/2019 Intractable vomiting 11/07/2019 Vomiting 11/07/2019 General counseling and advice for contraceptive manage ment 05/07/2013 Overview: ICD10 Diagnosis Term Entry Manager Utility Encounter for routine gynecological examination 2012 Overview: ICD10 Diagnosis Term Entry Manager Utility Type 2 diabetes mellitus without complications 013 Overview: 05/07/2013- Diabetes x 10 years. Previously taking po medication. ICD10 Diagnosis Term Entry Manager Utility Rubella immune 05/07/2013 Candidiasis of vulva and vagina 05/07/2013 documented as of this encounter (statuses as of 01/21/2020) Immunizations Name Administration Dates Next Due Influenza [...] this encounter Progress Notes Radha Angeles - 01/21/2020 11:37 AM CDTCCHW- [place] Angeles called Ms. Marin per referral from [facility] Fisher but no answer, did leave a message [...] ss Type Group RMP FAMILY FAMILY PLANNING [id number] 2013-Ashley [employer] [place] MAKEN[place] [id number]% [place] [id number] [place] [address] documented as of this encounter
[2020-02-10 05:59] LABS: Absolute Lymphocytes (CBC) 0.8 K/uL (0.7-4.9); Basophils % 0.9 % (0-1.3); Lymphocytes % 7.5 % (15.3-44.8); MPV 9.5 fL (7.6-11.3); RBC Red Blood Cell Count 3.34 M/uL (3.86-4.86)
[2020-02-10 06:25] LABS: Albumin 3.6 g/dL (3.4-5.0); Bilirubin Direct 0.2 mg/dL (0-0.2); Bilirubin Total 0.3 mg/dL (0.2-1.0); Potassium 4.5 mmol/L (3.5-5.1); Protein, Total 7.3 g/dL (6.4-8.2)
--- NOTE | 2020-02-10 06:45 | EDPHYS ---
Physician Documentation [facility] Name: Mercedes Marin Age: 40 yrs Sex: Female : 1980 Arrival Date: 02/10/2020 Time: 05:12 Bed 7 Private MD: ED Physician Adria Corona HPI: 02/09 05:24 This 40 yrs old Female presents to ER via Ambulatory with complaints of rn Nausea/Vomiting. 05:24 The patient presents to the emergency department with nausea, vomiting, abdominal pain, rn of the epigastric area. Onset: The symptoms/episode began/occurred yesterday. Possible causes: flare up of bowel problem, gastroparesis. The symptoms are aggravated by pressure, The symptoms are alleviated by nothing. Severity of symptoms: At their worst the symptoms were moderate in the emergency department the symptoms are unchanged. The patient has experienced similar episodes in the past. The patient has not recently seen a physician. Feels identical to previous gastroparesis, not able to hold anything down. . 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 - Family history:: not pertinent. - Social history:: Smoking status: Patient denies any tobacco usage or history of. - Hospitalizations: : No recent hospitalization is reported. ROS: 05:24 Constitutional: Negative for fever, chills, and weight loss, Eyes: Negative for injury, rn pain, redness, and discharge, Neck: Negative for injury, pain, and swelling, Cardiovascular: Negative for chest pain, palpitations, and edema, Respiratory: Negative for shortness of breath, cough, wheezing, and pleuritic chest pain, Abdomen/GI: + nausea/vomiting, neg for blood in emesis or stool. Back: Negative for injury and pain, : Negative for injury, bleeding, discharge, and swelling, MS/Extremity: Negative for injury and deformity, Skin: Negative for injury, rash, and discoloration, Neuro: Negative for headache, weakness, numbness, tingling, and seizure. Exam: 05:24 Constitutional: This is a well developed, well nourished patient who is awake, alert, rn sitting upright in bed, holding emesis back Head/Face: Normocephalic, atraumatic. ENT: dry MM Cardiovascular: Regular rate and rhythm. No pulse deficits. Respiratory: No increased work of breathing, no retractions or nasal flaring. Abdomen/GI: soft, mild epigastric tenderness, no rebound MS/ Extremity: Pulses equal, no cyanosis. Neurovascular intact. Full, normal range of motion. Equal circumference. Neuro: Awake and alert, GCS 15, oriented to person, place, time, and situation. Cranial nerves II-XII grossly intact. Motor strength 5/5 in all extremities. Sensory grossly intact. Vital Signs: 05:22 BP 164 / 84; Pulse 96; Resp 19; Temp 98.1; Pulse Ox 100% ; Weight 61.23 kg; Height 5 ea ft. 2 in. (157.48 cm); 07:00 BP 154 / 85; Pulse 91; Resp 17; Pulse Ox 99% on R/A; rr5 05:22 Body Mass Index 24.69 (61.23 kg, 157.48 cm) ea MDM: 05:21 Patient medically screened. rn 06:30 Differential diagnosis: Nonspecific abd pain, gastritis, pancreatitis, viral rn gastroenteritis, gastroenteritis. Data reviewed: vital signs, nurses notes, lab test result(s), and as a result, I will discharge patient. Counseling: I had a detailed discussion with the patient and/or guardian regarding: the historical points, exam findings, and any diagnostic results supporting the discharge/admit diagnosis, lab results, the need for outpatient follow up, to return to the emergency department if symptoms worsen or persist or if there are any questions or concerns that arise at home. Response to treatment: the patient's symptoms have mildly improved after treatment, and as a result, I will discharge patient. 06:43 ED course: Pt feels better, will dc home with gastroparesis dx, will give phenergan PO rn and suppository, is chronic problem, no new symptoms, no changes or acute findings in bloodwork. Return precautions given and understood. Sleeping comfortably. . 02/09 05:24 Order name: Basic Metabolic Panel; Complete Time: 06:26 rn 02/09 05:24 Order name: CBC with Diff rn 02/09 05:24 Order name: Hepatic Function; Complete Time: 06:26 rn 02/09 05:24 Order name: Lipase; Complete Time: 06:26 rn 02/09 05:24 Order name: IV Saline Lock; Complete Time: 05:52 rn 02/09 05:24 Order name: Labs collected and sent; Complete Time: 05:51 rn Administered Medications: 05:45 Drug: Phenergan 12.5 mg Route: IVP; Site: left forearm; rr5 06:20 Follow up: Response: No adverse reaction rr5 05:47 Drug: Demerol 25 mg {Note: rass 0.} Route: IVP; Site: left forearm; rr5 06:30 Follow up: Response: No adverse reaction; RASS: Alert and Calm (0) rr5 05:50 Drug: NS 0.9% 1000 ml Route: IV; Rate: 1000 ml; Site: left forearm; rr5 06:30 Follow up: Response: No adverse reaction; IV Status: Completed infusion; IV Intake: rr5 1000ml 06:27 Drug: Phenergan 12.5 mg Route: IVP; Site: left forearm; rr5 07:09 Follow up: Response: No adverse reaction rr5 Disposition: 02/10/20 06:44 Discharged to Home. Impression: Gastroparesis, Vomiting, unspecified. - Condition is Stable. - Discharge Instructions: Nausea and Vomiting, Adult, Gastroparesis. - Prescriptions for Phenergan 25 mg Rectal Suppository - insert 1 suppository by RECTAL route every 6 hours As needed; 12 suppository. promethazine 25 mg Oral Tablet - take 1 tablet by ORAL route every 6 hours As needed; 20 tablet. - Medication Reconciliation Form, Thank You Letter, Antibiotic Education, Prescription Opioid Use form. - Follow up: Private Physician; When: As needed; Reason: Recheck today's complaints, Re-evaluation by your physician. - Problem is an acute exacerbation. - Symptoms have improved. Signatures: Dispatcher [employer] Redd Henson RN Adria Rascon MD MD rn Antunez, Elena, RN RN ea Roque, Raymond RN RN rr5 Corrections: (The following items were deleted from the chart) 07:38 06:44 02/10/2020 06:44 Discharged to Home. Impression: Gastroparesis; Vomiting, em unspecified. Condition is Stable. Discharge Instructions: Nausea and Vomiting, Adult, Gastroparesis. Prescriptions for Phenergan 25 mg Rectal Suppository - insert 1 suppository by RECTAL route every 6 hours As needed; 12 suppository, promethazine 25 mg Oral Tablet - take 1 tablet by ORAL route every 6 hours As needed; 20 tablet. and Forms are Medication Reconciliation Form, Thank You Letter, Antibiotic Education, Prescription Opioid Use. Follow up: Private Physician; When: As needed; Reason: Recheck today's complaints, Re-evaluation by your physician. Problem is an acute exacerbation. Symptoms have improved. rn
--- NOTE | 2020-02-10 06:45 | ER ---
Nurse's Notes [facility] Name: Mercedes Marin Age: 40 yrs Sex: Female : 1980 Arrival Date: 02/10/2020 Time: 05:12 Bed 7 Private MD: Diagnosis: Gastroparesis;Vomiting, unspecified Presentation: 02/09 05:22 Chief complaint: Patient states: Reports she started vomiting since yesterday. ea Coronavirus screen: Proceed with normal triage. Ebola Screen: No symptoms or risks identified at this time. Initial Sepsis Screen: Does the patient meet any 2 criteria? No. Patient's initial sepsis screen is negative. Does the patient have a suspected source of infection? No. Patient's initial sepsis screen is negative. Risk Assessment: Do you want to hurt yourself or someone else? Patient reports no desire to harm self or others. Onset of symptoms was February 10, 2020. 05:22 Method Of Arrival: Ambulatory ea 05:22 Acuity: ALONDRA 3 ea Triage Assessment: 05:24 General: Appears uncomfortable, Behavior is calm, cooperative, appropriate for age. ea Pain: Complains of pain in abdomen. GI: Reports nausea, vomiting. 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 - Family history:: not pertinent. - Social history:: Smoking status: Patient denies any tobacco usage or history of. - Hospitalizations: : No recent hospitalization is reported. Screenin:23 Abuse screen: Denies threats or abuse. Nutritional screening: No deficits noted. ea Tuberculosis screening: No symptoms or risk factors identified. Fall Risk None identified. Assessment: 05:24 General: Appears uncomfortable, Behavior is appropriate for age. Neuro: Level of ea Consciousness is awake, alert, obeys commands, Oriented to person, place, time, situation. Respiratory: Airway is patent Respiratory effort is even, unlabored, Respiratory pattern is regular, symmetrical. GI: Abdomen is non-distended. Derm: Skin is pale, Skin temperature is warm. 06:20 Reassessment: Patient appears in no apparent distress at this time. complaints of rr5 nausea. ED provider aware with order made and carried out. 07:08 Reassessment: Patient appears in no apparent distress at this time. Patient is alert, rr5 oriented x 3, equal unlabored respirations, skin warm/dry/pink. discharge instruction given and explained without complaints made. waiting for her ride Patient states symptoms have improved. Vital Signs: 05:22 BP 164 / 84; Pulse 96; Resp 19; Temp 98.1; Pulse Ox 100% ; Weight 61.23 kg; Height 5 ea ft. 2 in. (157.48 cm); 07:00 BP 154 / 85; Pulse 91; Resp 17; Pulse Ox 99% on R/A; rr5 05:22 Body Mass Index 24.69 (61.23 kg, 157.48 cm) ea ED Course: 05:12 Patient arrived in ED. ds1 05:21 Adria Corona MD is Attending Physician. rn 05:22 Zenobia Locke RN is Primary Nurse. ea 05:23 Triage completed. ea 05:24 Arm band placed on right wrist. Patient placed in an exam room, on a stretcher, on ea pulse oximetry. 05:24 Patient has correct armband on for positive identification. Bed in low position. Call ea light in reach. Side rails up X2. 05:45 Inserted saline lock: 20 gauge in left forearm, using aseptic technique. Blood rr5 collected. 07:11 No provider procedures requiring assistance completed. IV discontinued, intact, ea bleeding controlled, No redness/swelling at site. Pressure dressing applied. Administered Medications: 05:45 Drug: Phenergan 12.5 mg Route: IVP; Site: left forearm; rr5 06:20 Follow up: Response: No adverse reaction rr5 05:47 Drug: Demerol 25 mg {Note: rass 0.} Route: IVP; Site: left forearm; rr5 06:30 Follow up: Response: No adverse reaction; RASS: Alert and Calm (0) rr5 05:50 Drug: NS 0.9% 1000 ml Route: IV; Rate: 1000 ml; Site: left forearm; rr5 06:30 Follow up: Response: No adverse reaction; IV Status: Completed infusion; IV Intake: rr5 1000ml 06:27 Drug: Phenergan 12.5 mg Route: IVP; Site: left forearm; rr5 07:09 Follow up: Response: No adverse reaction rr5 Intake: 06:30 IV: 1000ml; Total: 1000ml. rr5 Outcome: 06:44 Discharge ordered by . rn 07:11 Discharge instructions given to patient, Instructed on discharge instructions, follow ea up and referral plans. medication usage, Demonstrated understanding of instructions, follow-up care, medications, Prescriptions given X 2. 07:38 Discharged to home via wheelchair, with family. em 07:38 Condition: good 07:38 Patient left the ED. em Signatures: Redd Calvo RN RN em Vilma Dang ds1 Adria Corona MD MD rn Antunez, Elena, RN RN ea Roque, Raymond, RN RN rr5 Corrections: (The following items were deleted from the chart) 07:12 07:08 Reassessment: Patient appears in no apparent distress at this time. Patient is rr5 alert, oriented x 3, equal unlabored respirations, skin warm/dry/pink. discharge instruction given and explained without complaints made. Patient states symptoms have improved. rr5
[2020-02-10 08:15] LABS: Anisocytosis 1+; Blood Morphology Comment NOTED (NOT SEEN); Platelet Estimate ADEQ; Urine White Blood Cell Casts OK
[2020-02-10 08:16] LABS: Poikilocytosis 1+
[2020-02-10 08:29] VITALS: TEMP 98.1
[2020-02-10 08:33] VITALS: BP 154/85; O2SAT 99
== END 2020-02-10 07:38 | disposition home or self-care (01) ==
LOC: ER 05:09
DX: E11.43 Type 2 diabetes mellitus with diabetic autonomic (poly)neuropathy (principal); K31.84 Gastroparesis; R11.10 Vomiting, unspecified; I10 Essential (primary) hypertension; Z79.4 Long term (current) use of insulin; Z79.899 Other long term (current) drug therapy
CPT/HCPCS: 36415; 80048; 80076; 83690; 85025; 96361; 96374; 96375; 99284; J2175; J2550; J7030

== ENCOUNTER 2020-02-10 22:58 | Inpatient (IN) | payer SELFPAY ==
--- OUTSIDE RECORDS SUMMARY | 2020-02-10 23:00 | XMS REPORT ---
:1980 Author Organization [facility] t Address [address] [place] [address] [address] [place] [address] Care Team Providers Name Role Phone Unavailable Unavailable Unavailable Problems This patient has no known problems. Allergies, Adverse Reactions, Alerts This patient has no known allergies or adverse reactions. Medications This patient has no known medications.
[2020-02-10] MEDS ORDERED: METOCLOPRAMIDE 10 MG/2mL INJ ONE (23:50)
[2020-02-10] MEDS ORDERED: MORPHINE 2 MG/ML SYR ONE (23:51)
[2020-02-10] MEDS ORDERED: FAMOTIDINE 20 MG/2 ML VIAL IV ONE (23:51)
[2020-02-10] MEDS ORDERED: NA CHLORIDE 0.9% 1,000 ML ONE (23:51)
[2020-02-11 01:30] LABS: Urine Blood 2+ (NEG); Urine Glucose TRACE (NEG); Urine Protein 3+ (NEG); Urine Specific Gravity 1.025 (1.005-1.030)
[2020-02-11] MEDS ORDERED: MORPHINE 2 MG/ML SYR ONE (02:05)
[2020-02-11 02:10] LABS: Protime INR 1.09
[2020-02-11 02:24] LABS: Absolute Lymphocytes (CBC) 0.5 K/uL (0.7-4.9); Basophils % 0.4 % (0-1.3); Hematocrit 24.4 % (36.0-45.0); Lymphocytes % 4.7 % (15.3-44.8); RBC Red Blood Cell Count 2.96 M/uL (3.86-4.86)
[2020-02-11 02:34] LABS: ALT/SGPT 23 U/L (12-78); AST/SGOT 17 U/L (15-37); Albumin 3.2 g/dL (3.4-5.0); Alkaline Phosphatase 69 U/L (45-117); BUN Blood Urea Nitrogen 43 mg/dL (7-18); Bicarbonate 19 mmol/L (21-32); Bilirubin Direct < 0.1 mg/dL (0-0.2); Bilirubin Total 0.3 mg/dL (0.2-1.0); Glucose Level 291 mg/dL (74-106); Lipase 31 U/L (73-393); Magnesium 2.2 mg/dL (1.8-2.4); NT PRO-BNP 18120 pg/mL (<125); Potassium 4.4 mmol/L (3.5-5.1); Protein, Total 6.6 g/dL (6.4-8.2); Sodium Level 136 mmol/L (136-145); Troponin (Emerg Dept Use Only) < 0.02 ng/mL (0.0-0.045)
[2020-02-11] MEDS ORDERED: CEFTRIAXONE/SWI 1gm 1 GM/10 ML SYR ONE (03:10)
[2020-02-11 03:22] LABS: Blood Morphology Comment NOTED (NOT SEEN); Ovalocytes 1+; Platelet Estimate ADEQ
--- NOTE | 2020-02-11 03:43 | EDPHYS ---
Physician Documentation [facility] Name: Mercedes Marin Age: 40 yrs Sex: Female : 1980 Arrival Date: 02/10/2020 Time: 22:59 Bed 14 Private MD: VITALY Physician Lorenzo Condon HPI: 02/09 23:33 This 40 yrs old Female presents to ER via Wheelchair with complaints of nicholas Nausea/Vomiting. 23:33 The patient presents to the emergency department with nausea, vomiting, abdominal pain, nicholas of the epigastric area, right upper quadrant and left upper quadrant. Onset: The symptoms/episode began/occurred 4 day(s) ago. Possible causes: unknown, hx of gastroparesis, cholecystectomy, pancreatitis. The symptoms are aggravated by movement, pressure, food , The symptoms are alleviated by nothing. Associated signs and symptoms: Pertinent positives: abdominal pain, anorexia, nausea, vomiting. Severity of symptoms: At their worst the symptoms were moderate in the emergency department the symptoms are unchanged. The patient has not experienced similar symptoms in the past. Historical: - Allergies: 23:13 No Known Allergies; ll1 - PMHx: 23:13 Diabetes - IDDM; Pancreatitis; Hypertension; ll1 - PSHx: 23:13 Cholecystectomy; ll1 - Immunization history:: Flu vaccine is not up to date. - Social history:: Smoking status: Patient denies any tobacco usage or history of. Patient/guardian denies using alcohol, street drugs, tobacco products. ROS: 23:34 Constitutional: Negative for fever, chills, and weight loss, Eyes: Negative for injury, nicholas pain, redness, and discharge, ENT: Negative for injury, pain, and discharge, Neck: Negative for injury, pain, and swelling, Cardiovascular: Negative for chest pain, palpitations, and edema, Respiratory: Negative for shortness of breath, cough, wheezing, and pleuritic chest pain, Back: Negative for injury and pain, : Negative for injury, bleeding, discharge, and swelling, MS/Extremity: Negative for injury and deformity, Skin: Negative for injury, rash, and discoloration, Neuro: Negative for headache, weakness, numbness, tingling, and seizure, Psych: Negative for depression, anxiety, suicide ideation, homicidal ideation, and hallucinations, Allergy/Immunology: Negative for hives, rash, and allergies, Endocrine: Negative for neck swelling, polydipsia, polyuria, polyphagia, and marked weight changes, Hematologic/Lymphatic: Negative for swollen nodes, abnormal bleeding, and unusual bruising. 23:34 Abdomen/GI: Positive for abdominal pain, nausea and vomiting, abdominal cramps, pain in lower chest and upper abdomen radiates to back, in ed last night, pt states worse tonight,pain and n/v. Exam: 23:34 Head/Face: Normocephalic, atraumatic. Eyes: Pupils equal round and reactive to light, nicholas extra-ocular motions intact. Lids and lashes normal. Conjunctiva and sclera are non-icteric and not injected. Cornea within normal limits. Periorbital areas with no swelling, redness, or edema. ENT: Nares patent. No nasal discharge, no septal abnormalities noted. Tympanic membranes are normal and external auditory canals are clear. Oropharynx with no redness, swelling, or masses, exudates, or evidence of obstruction, uvula midline. Mucous membranes moist. Neck: Trachea midline, no thyromegaly or masses palpated, and no cervical lymphadenopathy. Supple, full range of motion without nuchal rigidity, or vertebral point tenderness. No Meningismus. Chest/axilla: Normal chest wall appearance and motion. Nontender with no deformity. No lesions are appreciated. Respiratory: Lungs have equal breath sounds bilaterally, clear to auscultation and percussion. No rales, rhonchi or wheezes noted. No increased work of breathing, no retractions or nasal flaring. Skin: Warm, dry with normal turgor. Normal color with no rashes, no lesions, and no evidence of cellulitis. MS/ Extremity: Pulses equal, no cyanosis. Neurovascular intact. Full, normal range of motion. Neuro: Awake and alert, GCS 15, oriented to person, place, time, and situation. Cranial nerves II-XII grossly intact. Motor strength 5/5 in all extremities. Sensory grossly intact. Cerebellar exam normal. Normal gait. Psych: Awake, alert, with orientation to person, place and time. Behavior, mood, and affect are within normal limits. 23:34 Constitutional: The patient appears in obvious distress, mildly distressed, moderately distressed. 23:34 Cardiovascular: Rate: tachycardic, Rhythm: regular, Pulses: Pulses are 4+ in bilateral radial, brachial, femoral, popliteal, posterior tibial and and dorsalis pedis arteries.. Heart sounds: normal, Edema: is not appreciated, JVD: is not appreciated. 23:34 Abdomen/GI: Inspection: abdomen appears normal, Bowel sounds: hyperactive, Palpation: moderate abdominal tenderness, in the epigastric area, right upper quadrant and left upper quadrant, Liver: no appreciated palpable abnormalities, Hernia: not appreciated. 23:34 Musculoskeletal/extremity: DVT Exam: No signs of deep vein thrombosis. no pain, no swelling, no tenderness, negative Homans' sign noted on exam, no appreciated bluish discoloration, no erythema, no increased warmth. 02/10 03:21 Abdomen/GI: Rectal exam: is unremarkable, rectal tone normal, Stool: guaiac negative, nicholas hemorrhoid(s), are not appreciated, mass, is not appreciated, swelling, is not appreciated. Skin: Appearance: Color: pale. 03:23 Chest/axilla: Exam negative for acute changes, Inspection: normal, Palpation: is nicholas normal, no acute changes, Axilla: are normal, no acute changes, Lymph nodes: lymphadenopathy is not appreciated. 03:27 ECG was reviewed by the Attending Physician. nicholas 03:27 Skin: Appearance: Color: Temperature: normal temperature, Moisture: normal moisture, petechiae, not noted, ecchymosis, not noted, flushing, not noted, diaphoresis is not appreciated, swelling, is not appreciated. Vital Signs: 02/09 23:11 BP 145 / 85; Pulse 104; Resp 18; Temp 98.3; Pulse Ox 100% ; Pain 7/10; ll1 02/10 01:37 BP 164 / 86; Pulse 104; Resp 16; Pulse Ox 96% on R/A; jb4 02:30 BP 150 / 79; Pulse 97; Resp 16; Pulse Ox 93% on R/A; jb4 03:15 BP 132 / 86; Pulse 97; Resp 16; Pulse Ox 98% on 2 lpm NC; jb4 03:42 BP 169 / 94 LA Supine; Pulse 103; Resp 16; Pulse Ox 100% on 2 lpm NC; jb4 03:43 BP 169 / 89 LA Sitting; Pulse 101; Resp 16; Pulse Ox 100% on 2 lpm NC; jb4 03:45 BP 167 / 84 LA Standing; Pulse 103; Resp 16; Pulse Ox 100% on 2 lpm NC; jb4 04:15 BP 169 / 90; Pulse 100; Resp 16; Temp 98.5(TE); Pulse Ox 100% on 2 lpm NC; jb4 MDM: 02/09 23:09 Patient medically screened. [facility] 23:37 Data reviewed: vital signs, nurses notes, lab test result(s), EKG, radiologic studies, [facility] CT scan, plain films. 23:38 Differential diagnosis: gastritis, pancreatitis, diverticulitis, gastroenteritis, acute nicholas coronary syndrome, bowel obstruction, diverticulitis, Ectopic , Peptic Ulcer Disease. Data interpreted: alarm security or surveillance monitor: rate is 104 beats/min. ED course: pt in er last night, abd pain, n, v pt worse now... lower chest pain, upper abd pain radiating to the back. 02/10 03:43 ED course: . [facility] 03:44 ED course: vomiting contines, abd pain also, pt failed outpt treatment, dw dr see [facility] agrees the patient should be obs in the hospital. 02/09 23:32 Order name: Basic Metabolic Panel; Complete Time: 02:45 [facility] 02/09 23:32 Order name: CBC with Diff; Complete Time: 03:23 [facility] 02/09 23:32 Order name: LFT's; Complete Time: 02:45 [facility] 02/09 23:32 Order name: Magnesium; Complete Time: 02:45 [facility] 02/09 23:32 Order name: NT PRO-BNP; Complete Time: 02:45 [facility] 02/09 23:32 Order name: PT-INR; Complete Time: 02:45 [facility] 02/09 23:32 Order name: Troponin (emerg Dept Use Only); Complete Time: 02:45 [facility] 02/09 23:32 Order name: Lipase; Complete Time: 02:45 [facility] 02/10 00:57 Order name: Urine Culture [facility] 02/10 01:03 Order name: Urine Dipstick--Ancillary (enter results); Complete Time: 02:45 de 02/10 01:03 Order name: Urine --Ancillary (enter results); Complete Time: 02:45 de 02/10 02:28 Order name: Manual Differential; Complete Time: 03:23 EDMS 02/10 03:36 Order name: Type And Screen [facility] 02/10 03:55 Order name: CBC with Automated Diff [facility] 02/09 23:32 Order name: XRAY Chest (1 view) [facility] 02/09 23:32 Order name: EKG; Complete Time: 23:34 [facility] 02/09 23:32 Order name: CT Abd/Pelvis - PO Contrast Only [facility] 02/10 03:55 Order name: CONS Pharmacy Consult [facility] 02/10 03:55 Order name: CBC with Automated Diff [facility] 02/10 03:55 Order name: Comprehensive Metabolic Panel [facility] 02/10 03:55 Order name: Comprehensive Metabolic Panel [facility] 02/09 23:32 Order name: Cardiac monitoring; Complete Time: 00:44 [facility] 02/09 23:32 Order name: EKG - Nurse/Tech; Complete Time: 00:44 [facility] 02/09 23:32 Order name: IV Saline Lock; Complete Time: 01:40 [facility] 02/09 23:32 Order name: Labs collected and sent; Complete Time: 01:40 [facility] 02/09 23:32 Order name: O2 Per Protocol; Complete Time: 00:44 [facility] 02/09 23:32 Order name: O2 Sat Monitoring; Complete Time: 00:44 [facility] 02/09 23:32 Order name: Urine Dipstick-Ancillary (obtain specimen); Complete Time: 01:42 [facility] 02/09 23:32 Order name: Urine Test (obtain specimen); Complete Time: 01:42 [facility] 02/10 03:31 Order name: Orthostatics; Complete Time: 03:49 [facility] 02/10 03:55 Order name: Renal EDMS EC:27 Rate is 105 beats/min. Rhythm is regular. QRS [place] is Normal. MI interval is normal. [facility] QRS interval is normal. QT interval is normal. No Q waves. T waves are Normal. No ST changes noted. Clinical impression: Sinus tachycardia and No evidence of ischemia. Administered Medications: 01:34 Drug: Pepcid 20 mg Route: IVP; Site: right wrist; jb4 02:00 Follow up: Response: No adverse reaction jb4 01:35 Drug: Reglan 10 mg Route: IVP; Site: right wrist; jb4 02:00 Follow up: Response: No adverse reaction; Nausea is decreased jb4 01:36 Drug: NS 0.9% 500 ml Route: IV; Rate: bolus; Site: right wrist; jb4 02:00 Follow up: Response: No adverse reaction; IV Status: Completed infusion; IV Intake: jb4 500ml 01:36 Drug: morphine 2 mg {Note: Rass score 0.} Route: IVP; Site: right wrist; jb4 02:13 Drug: morphine 2 mg {Note: Rass score 0.} Route: IVP; Site: right wrist; jb4 02:13 Follow up: Response: No adverse reaction; Pain is decreased; RASS: Alert and Calm (0) jb4 02:22 Drug: NS 0.9% 1000 ml Route: IV; Rate: 125 ml/hr; Site: right wrist; jb4 04:29 Follow up: Response: No adverse reaction; IV Status: Infusion continued upon admission jb4 03:18 Drug: Rocephin 1 grams Route: IV; Rate: per protocol; Site: right wrist; jb4 03:20 Follow up: Response: No adverse reaction; IV Status: Completed infusion; IV Intake: [id number] 03:40 Drug: Zofran (Ondansetron) 4 mg Route: IVP; Site: right wrist; jb4 04:00 Follow up: Response: No adverse reaction; Nausea unchanged jb4 04:09 Drug: Phenergan 12.5 mg Route: IVP; Site: right wrist; jb4 04:24 Follow up: Response: Adverse reaction, Physician notified; Nausea is decreased jb4 04:19 Drug: Tylenol 650 mg Route: PO; jb4 04:25 Follow up: Response: No adverse reaction jb4 Disposition: 02/11/20 03:42 Hospitalization ordered by Lilliana See for Observation. Preliminary diagnosis are Unspecified kidney failure - chronic, Gastroparesis, Type 1 diabetes mellitus, Iron deficiency anemia, unspecified, Abdominal tenderness, Urinary tract infection, site not specified, Unspecified combined systolic (congestive) and diastolic (congestive) heart failure, Vomiting - intractable. - Bed requested for Telemetry/MedSurg (observation). - Status is Observation. jb4 - Condition is Fair. - Problem is new. - Symptoms have improved. Signatures: Dispatcher [employer] EDMS Lorenzo Condon MD MD cha Lasagna, Tonya, RN RN tl1 Wilberto Mancini RN RN jb4 Shazia tSephens RN RN ll1 Corrections: (The following items were deleted from the chart) 03:44 03:42 Hospitalization Ordered by Lilliana See MD for Observation. Preliminary nicholas diagnosis is Unspecified kidney failure - chronic; Gastroparesis; Type 1 diabetes mellitus; Iron deficiency anemia, unspecified; Abdominal tenderness. Bed requested for Telemetry/MedSurg (observation). Status is Observation. Condition is Fair. Problem is new. Symptoms have improved. nicholas 03:46 03:44 02/11/2020 03:42 Hospitalization Ordered by Lilliana See MD for Observation. nicholas Preliminary diagnosis is Unspecified kidney failure - chronic; Gastroparesis; Type 1 diabetes mellitus; Iron deficiency anemia, unspecified; Abdominal tenderness; Urinary tract infection, site not specified. Bed requested for Telemetry/MedSurg (observation). Status is Observation. Condition is Fair. Problem is new. Symptoms have improved. nicholas 04:07 03:46 02/11/2020 03:42 Hospitalization Ordered by Lilliana See MD for Observation. nicholas Preliminary diagnosis is Unspecified kidney failure - chronic; Gastroparesis; Type 1 diabetes mellitus; Iron deficiency anemia, unspecified; Abdominal tenderness; Urinary tract infection, site not specified; Unspecified combined systolic (congestive) and diastolic (congestive) heart failure. Bed requested for Telemetry/MedSurg (observation). Status is Observation. Condition is Fair. Problem is new. Symptoms have improved. [facility] 04:10 04:07 02/11/2020 03:42 Hospitalization Ordered by Lilliana See MD for Observation. tl1 Preliminary diagnosis is Unspecified kidney failure - chronic; Gastroparesis; Type 1 diabetes mellitus; Iron deficiency anemia, unspecified; Abdominal tenderness; Urinary tract infection, site not specified; Unspecified combined systolic (congestive) and diastolic (congestive) heart failure; Vomiting - intractable. Bed requested for Telemetry/MedSurg (observation). Status is Observation. Condition is Fair. Problem is new. Symptoms have improved. nicholas 04:44 04:10 02/11/2020 03:42 Hospitalization Ordered by Lilliana See MD for Observation. jb4 Preliminary diagnosis is Unspecified kidney failure - chronic; Gastroparesis; Type 1 diabetes mellitus; Iron deficiency anemia, unspecified; Abdominal tenderness; Urinary tract infection, site not specified; Unspecified combined systolic (congestive) and diastolic (congestive) heart failure; Vomiting - intractable. Bed requested for Telemetry/MedSurg (observation). Status is Observation. Condition is Fair. Problem is new. Symptoms have improved. tl1
--- NOTE | 2020-02-11 03:43 | ER ---
Nurse's Notes [facility] Name: Mercedes Marin Age: 40 yrs Sex: Female : 1980 Arrival Date: 02/10/2020 Time: 22:59 Bed 14 Private MD: Diagnosis: Unspecified kidney failure-chronic;Gastroparesis;Type 1 diabetes mellitus;Iron deficiency anemia, unspecified;Abdominal tenderness;Urinary tract infection, site not specified;Unspecified combined systolic (congestive) and diastolic (congestive) heart failure;Vomiting-intractable Presentation: 02/09 23:11 Chief complaint: Patient states: Upper abdominal pain with N/V continues since visit ll1 here earlier today. Coronavirus screen: Proceed with normal triage. Patient denies a cough. Patient denies shortness of breath or difficulty breathing. Patient denies measured and/or subjective temperature greater than 100.4F prior to today's visit. Patient denies travel on a cruise ship or to a country the [facility] currently lists as an affected area. Patient denies contact with known and/or suspected case of COVID-19. Ebola Screen: Patient denies travel to an Ebola-affected area in the 21 days before illness onset. Initial Sepsis Screen: Does the patient meet any 2 criteria? HR > 90 bpm. No. Patient's initial sepsis screen is negative. Risk Assessment: Do you want to hurt yourself or someone else? Patient reports no desire to harm self or others. Onset of symptoms was February 09, 2020. 23:11 Method Of Arrival: Wheelchair ll1 23:11 Acuity: ALONDRA 3 ll1 Historical: - Allergies: 23:13 No Known Allergies; ll1 - PMHx: 23:13 Diabetes - IDDM; Pancreatitis; Hypertension; ll1 - PSHx: 23:13 Cholecystectomy; ll1 - Immunization history:: Flu vaccine is not up to date. - Social history:: Smoking status: Patient denies any tobacco usage or history of. Patient/guardian denies using alcohol, street drugs, tobacco products. Screenin:30 Abuse screen: Denies threats or abuse. Nutritional screening: No deficits noted. jb4 Tuberculosis screening: No symptoms or risk factors identified. Fall Risk None identified. Assessment: 23:30 General: Appears in no apparent distress. uncomfortable, Behavior is calm, cooperative, jb4 appropriate for age. Pain: Complains of pain in epigastric area Pain does not radiate. Pain currently is 7 out of 10 on a pain scale. Neuro: Level of Consciousness is awake, alert, obeys commands, Oriented to person, place, time, situation. Cardiovascular: Patient's skin is warm and dry. Respiratory: Airway is patent Respiratory effort is even, unlabored, Respiratory pattern is regular, symmetrical. GI: Abdomen is flat, non-distended, Bowel sounds present X 4 quads. Abd is soft and non tender X 4 quads. : No signs and/or symptoms were reported regarding the genitourinary system. EENT: No signs and/or symptoms were reported regarding the EENT system. Derm: Skin is intact, Skin is pink, warm \T\ dry. Musculoskeletal: Circulation, motion, and sensation intact. Range of motion: intact in all extremities. 02/10 00:30 Reassessment: Patient appears in no apparent distress at this time. No changes from jb4 previously documented assessment. Patient and/or family updated on plan of care and expected duration. Pain level reassessed. Patient is alert, oriented x 3, equal unlabored respirations, skin warm/dry/pink. 01:45 Reassessment: Patient appears in no apparent distress at this time. No changes from jb4 previously documented assessment. Patient and/or family updated on plan of care and expected duration. Pain level reassessed. Patient is alert, oriented x 3, equal unlabored respirations, skin warm/dry/pink. 03:00 Reassessment: Patient appears in no apparent distress at this time. Patient and/or jb4 family updated on plan of care and expected duration. Pain level reassessed. Patient is alert, oriented x 3, equal unlabored respirations, skin warm/dry/pink. Patient states feeling better. 03:15 Reassessment: PT desating to 87% on room air after pain medication administration. jb4 Placed on 2L NC. 03:30 Reassessment: Patient appears in no apparent distress at this time. Patient and/or jb4 family updated on plan of care and expected duration. Pain level reassessed. Patient is alert, oriented x 3, equal unlabored respirations, skin warm/dry/pink. Pt reports nausea and vomiting, provider notified, see MAR for orders. PT satting 100% on 2L NC. 04:30 Reassessment: Patient appears in no apparent distress at this time. Patient and/or jb4 family updated on plan of care and expected duration. Pain level reassessed. Patient is alert, oriented x 3, equal unlabored respirations, skin warm/dry/pink. PT reports nausea, and pain has decreased. Report called elizabeth GUTIERREZ RN. Patient states feeling better. Vital Signs: 02/09 23:11 BP 145 / 85; Pulse 104; Resp 18; Temp 98.3; Pulse Ox 100% ; Pain 7/10; ll1 02/10 01:37 BP 164 / 86; Pulse 104; Resp 16; Pulse Ox 96% on R/A; jb4 02:30 BP 150 / 79; Pulse 97; Resp 16; Pulse Ox 93% on R/A; jb4 03:15 BP 132 / 86; Pulse 97; Resp 16; Pulse Ox 98% on 2 lpm NC; jb4 03:42 BP 169 / 94 LA Supine; Pulse 103; Resp 16; Pulse Ox 100% on 2 lpm NC; jb4 03:43 BP 169 / 89 LA Sitting; Pulse 101; Resp 16; Pulse Ox 100% on 2 lpm NC; jb4 03:45 BP 167 / 84 LA Standing; Pulse 103; Resp 16; Pulse Ox 100% on 2 lpm NC; jb4 04:15 BP 169 / 90; Pulse 100; Resp 16; Temp 98.5(TE); Pulse Ox 100% on 2 lpm NC; jb4 ED Course: 02/09 22:59 Patient arrived in ED. cl3 23:09 Lorenzo Condon MD is Attending Physician. nicholas 23:12 Triage completed. ll1 23:13 Arm band placed on Patient placed in an exam room, on a stretcher. ll1 23:30 Patient has correct armband on for positive identification. Bed in low position. Call jb4 light in reach. Side rails up X 1. Pulse ox on. NIBP on. 23:36 Wilberto Mancini, WALDEMAR is Primary Nurse. 4 02/10 00:52 XRAY Chest (1 view) In Process Unspecified. EDMS 01:21 Missed attempt(s): 20 gauge in left upper arm. Bleeding controlled, band aid applied, sg catheter tip intact. 01:30 Inserted saline lock: 22 gauge in right forearm, using aseptic technique. Blood mg2 collected. 02:01 No provider procedures requiring assistance completed. mg2 02:09 CT Abd/Pelvis - PO Contrast Only In Process Unspecified. EDMS 02:32 Patient moved back from CT. md1 03:37 Lilliana Arce MD is Hospitalizing Provider. nicholas 04:19 Patient admitted, IV remains in place. jb4 Administered Medications: 01:34 Drug: Pepcid 20 mg Route: IVP; Site: right wrist; jb4 02:00 Follow up: Response: No adverse reaction jb4 01:35 Drug: Reglan 10 mg Route: IVP; Site: right wrist; jb4 02:00 Follow up: Response: No adverse reaction; Nausea is decreased jb4 01:36 Drug: NS 0.9% 500 ml Route: IV; Rate: bolus; Site: right wrist; jb4 02:00 Follow up: Response: No adverse reaction; IV Status: Completed infusion; IV Intake: jb4 500ml 01:36 Drug: morphine 2 mg {Note: Rass score 0.} Route: IVP; Site: right wrist; jb4 02:13 Drug: morphine 2 mg {Note: Rass score 0.} Route: IVP; Site: right wrist; jb4 02:13 Follow up: Response: No adverse reaction; Pain is decreased; RASS: Alert and Calm (0) jb4 02:22 Drug: NS 0.9% 1000 ml Route: IV; Rate: 125 ml/hr; Site: right wrist; jb4 04:29 Follow up: Response: No adverse reaction; IV Status: Infusion continued upon admission jb4 03:18 Drug: Rocephin 1 grams Route: IV; Rate: per protocol; Site: right wrist; jb4 03:20 Follow up: Response: No adverse reaction; IV Status: Completed infusion; IV Intake: [id number] 03:40 Drug: Zofran (Ondansetron) 4 mg Route: IVP; Site: right wrist; jb4 04:00 Follow up: Response: No adverse reaction; Nausea unchanged jb4 04:09 Drug: Phenergan 12.5 mg Route: IVP; Site: right wrist; jb4 04:24 Follow up: Response: Adverse reaction, Physician notified; Nausea is decreased jb4 04:19 Drug: Tylenol 650 mg Route: PO; jb4 04:25 Follow up: Response: No adverse reaction jb4 Intake: 02:00 IV: 500ml; Total: 500ml. jb4 03:20 IV: 10ml; Total: 510ml. jb4 Outcome: 03:42 Decision to Hospitalize by Provider. nicholas 04:35 Admitted to Med/surg accompanied by tech, via wheelchair, room 216, with chart, Report jb4 called to Waldemar Gutierrez 04:35 Condition: stable 04:35 Discharge instructions given to patient, Instructed on the need for admit, Demonstrated understanding of instructions. 04:44 Patient left the ED. jb4 Signatures: Dispatcher [employer] EDMS David Alcala, RN RN oLrenzo Whiting MD MD cha Bryson, James RN RN jb4 Jc Cervantes RN RN mg2 Mohini Stephens3 Patricia Granados md1 Shazia Stephens RN RN ll1 Corrections: (The following items were deleted from the chart) 02:58 02:57 Response: No adverse reaction; IV Status: Completed infusion; IV Intake: 500ml [id number] 03:57 03:30 Reassessment: Patient appears in no apparent distress at this time. Patient jb4 and/or family updated on plan of care and expected duration. Pain level reassessed. Patient is alert, oriented x 3, equal unlabored respirations, skin warm/dry/pink. Pt reports nausea and vomiting, provider notified, see MAR for orders. jb4 04:30 04:25 IV Status: Infusion continued upon admission jb4 jb4
[2020-02-11] MEDS ORDERED: ONDANSETRON 4 MG/2 ML VIAL ONE (03:44)
[2020-02-11] MEDS ORDERED: ACETAMINOPHEN 325 MG TABLET ONE (03:44)
[2020-02-11] MEDS ORDERED: ALBUTEROL 2.5 MG/3 ML NEB SOL NEB PRN ×2 (03:46→15:00)
[2020-02-11] MEDS ORDERED: SCOPOLAMINE HYDROBROMIDE PATCH TD ONE (03:49)
[2020-02-11] MEDS ORDERED: HYDRALAZINE HCL 20 MG/ML VIAL IV PRN (04:06)
--- NOTE | 2020-02-11 04:06 | P.HP ---
Certification for Inpatient Patient admitted to: Observation With expected LOS: <2 Midnights Patient will require the following post-hospital care: None Practitioner: I am a practitioner with admitting privileges, knowledge of patient current condition, hospital course, and medical plan of care. Services: Services provided to patient in accordance with Admission requirements found in Title 42 Section 412.3 of the Code of Federal Regulations Patient History Date of Service: 02/11/20 Reason for admission: Intractable vomiting History of Present Illness: A 70-year-old female past medical history of HTN, dm type 2, diabetic gastroparesis, CKD stage [address] velez an outpatient, diabetic neuropathy, recurrent intractable vomiting status post multiple GI wall cough, history of anasarca with bilateral pleural effusion admitted now because of recurrent vomiting since the last 2 days. She was initially in the ED yesterday for similar symptoms and discharged home the symptoms continued to persist. She admits to taking her Reglan which was started last month -last admission for similar episode. She admit to some diarrhea x2 epsidoes .She denies any fever or chills she denies any cough. She admits to some shortness of breath. Chest x-ray shows persistent bilateral pleural effusion as well as pulmonary congestive changes. CT of the abdomen did not show any evidence of bowel obstruction. Patient is be admitted for intractable vomiting, fluid overload with pulmonary edema and effusions. Allergies No Known Allergies Allergy (Verified 02/11/20 06:01) Home Medications: Carvedilol [Coreg] 25 mg PO BID 12/25/19 Diphenhydramine [Benadryl*] 25 mg PO QID 12/25/19 Erythromycin Suspension 4.5 ml PO Q8H 12/25/19 Furosemide [Lasix*] 80 mg PO DAILY 12/25/19 Insulin NPH Human [Novolin N (Humulin N)*] 12 units SQ DAILY 12/25/19 Pantoprazole [Protonix Tab*] 40 mg PO BIDAC 12/25/19 Sucralfate [Carafate*] 1 tab PO ACHS 12/25/19 Ciprofloxacin HCl [Cipro 250 MG Tablet*] 250 mg PO DAILY #3 tab 12/28/19 Metoclopramide HCl [Reglan] 5 mg PO TIDWM #30 tablet 12/28/19 - Past Medical/Surgical History Diabetic: Yes -: Diabetes mellitus type 2, insulin dependent -: Hypertension -: Chronic kidney disease stage 4 -: Diabetic nephropathy -: GERD with hiatal hernia -: Chronic nausea and vomiting -: Chronic anemia with Iron/B12 deficiency -: History of pancreatitis -: Chronic diastolic CHF -: Pancreatic pseudocystectomy -: Appendectomy -: Cholecystectomy Psychosocial/ Personal History: Patient is - Family History Mother -: Heart disease, Diabetes - Social History Smoking Status: Never smoker Alcohol use: No CD- Drugs: No Caffeine use: No Review of Systems 10-point ROS is otherwise unremarkable Physical Examination - Physical Exam General: In no apparent distress, Oriented x3 HEENT: Atraumatic, Normocephalic, Mucous membr. moist/pink Neck: Supple, 2+ carotid pulse no bruit, JVD not distended Respiratory: Diminished, Crackles/rales Cardiovascular: Normal pulses, Regular rate/rhythm, Normal S1 S2 Gastrointestinal: Normal bowel sounds, Soft and benign, Non-distended, No tenderness Musculoskeletal: No clubbing, No swelling, No erythema, No tenderness Integumentary: No rashes, No breakdown Neurological: Normal speech, Normal strength at 5/5 x4 extr - Studies Laboratory Data (last 24 hrs) 02/11/20 01:30: PT 12.8 H, INR 1.09 02/11/20 01:30: WBC 10.4, Hgb 7.7 L*, Hct 24.4 L, Plt Count 217 02/11/20 01:30: Sodium 136, Potassium 4.4, BUN 43 H, Creatinine 2.97 H, Glucose 291 H, Magnesium 2.2, Total Bilirubin 0.3, AST 17, ALT 23, Alkaline Phosphatase 69, Lipase 31 L Assessment and Plan - Problems (Diagnosis) (1) Acute worsening of stage 4 chronic kidney disease Current Visit: No Status: Acute (2) Anasarca associated with disorder of kidney Current Visit: No Status: Acute (3) Anemia Onset Date: 05/14/16 Current Visit: No Status: Acute (4) Diabetic gastroparesis Current Visit: No Status: Acute (5) Insulin dependent diabetes mellitus Current Visit: No Status: Acute (6) Intractable nausea and vomiting Current Visit: No Status: Acute - Advance Directives Does patient have a Living Will: No Does patient have a Durable POA for Healthcare: No Physician Review: Patient Assessed, Agree with Above Assessment and Plan Physician Review Additional Text: # intractable nausea and vomiting-may be due to diabetic gastroparesis exacerbat ed by worsening azotemia -will do scopolamine patch, increase Reglan to 10 mg t.i.d. with meals. -continue on IV Zofran as tolerated Luiz # hypertension-resume home regimen, IV hydralazine p.r.n. # anemia-likely due to hemodilution on on anemia from CKD - at 7.7 now -consider start erythropoietin -follow Iron profile # acute pulmonary edema/bilateral pleural effusion-chronic due to fluid rete ntion from Shaun worsening CKD -increase Lasix to IV Q 12 # worsening CKD-egFR at 18 meals per min, follow with diureses -may need to start preparation for dialysis in near future # DM- insulin sliding scale for now -resume home regime # UTI - follow cx , start rocephin DVT prophylaxis-subacute heparin Q 12 Time Spent Managing Pts Care (In Minutes): 65
[2020-02-11] MEDS ORDERED: PROMETHAZINE INJ 25 MG/ML AMP ONE (04:12)
[2020-02-11] MEDS: METOCLOPRAMIDE 5 MG TAB PO SCH ×5 (05:32→21:07)
[2020-02-11] MEDS: FUROSEMIDE 40 MG/4 ML VIAL IV SCH ×2 (05:32→09:10)
[2020-02-11] MEDS: MORPHINE 2 MG/ML SYR IV PRN ×2 (06:09→15:24)
--- NOTE | 2020-02-11 07:23 | RAD REPORT ---
EXAM DESCRIPTION: RAD - Chest Single View - 02/11/2020 12:52 am CLINICAL HISTORY: ABDOMINAL DISTENTION Chest pain. COMPARISON: Chest Pa And Lat (2 Views) dated 01/17/2020; Abdomen Acute Series dated 10/30/2019; Chest S dony View dated 10/23/2019; Chest Single View dated 10/18/2019; Abdomen Pelvis W Contrast dated ; Abdomen Pelvis Wo Contrast dated 12/25/2019 FINDINGS: Portable technique limits examination quality. Mild interstitial prominence is present which may represent mild interstitial pulmonary edema or inte rstitial pneumonitis. Small bilateral pleural effusions are suspected. The heart is normal in size. N o displaced fractures.
[2020-02-11] MEDS ORDERED: HEPARIN 5000 UNIT/ML 1 ML VIAL SQ SCH (09:00)
[2020-02-11] MEDS: INSULIN -REGULAR HUMAN 50 UNIT/0.5 ML ML SQ SCH ×4 (09:09→21:00)
[2020-02-11] MEDS: FAMOTIDINE 20 MG/2 ML VIAL IV SCH (09:10)
[2020-02-11] MEDS: SUCRALFATE 1 GM TABLET PO SCH ×4 (09:10→21:08)
[2020-02-11] MEDS: carvediloL 25 MG TAB PO SCH ×2 (09:10→21:00)
[2020-02-11] MEDS: ONDANSETRON 4 MG/2 ML VIAL IV PRN (09:25)
--- NOTE | 2020-02-11 10:21 | RAD REPORT ---
EXAM DESCRIPTION: Abdomen Pelvis W Contrast CLINICAL HISTORY: ABD PAIN COMPARISON: 12/25/2019. TECHNIQUE: CT ABDOMEN PELVIS WITH IV CONTRAST on 02/10/2020 11:32 PM CDT This exam was performed according to our departmental dose-optimization program, which includes autom ated exposure control, adjustment of the mA and/or kV according to patient size and/or use of iterati ve reconstruction technique. FINDINGS: There is a trace left and a small right pleural effusion. There is mild bibasilar atelecta sis. There is a trace pericardial effusion. Abdomen: The liver is normal in appearance. There is no biliary dilatation. Cholecystectomy was perfo rmed. There is mild right abdominal ascites. The pancreas and spleen are normal in appearance. Adrena l glands are normal. There are several minimal punctate bilateral renal calculi without hydronephrosi s. Abdominal aorta is normal in course and caliber without aneurysm. There is no free air. There is no r etroperitoneal adenopathy.There is mild diffuse body wall anasarca. Pelvis: There is no bowel obstruction. There is moderate amount of air in the urinary bladder. There is small amount of free pelvic fluid. Uterus is normal in size. Appendix is normal. Skeleton: There are no acute osseous findings. No suspicious bony lesions. IMPRESSION: Mild fluid overloaded state with pleural effusions, anasarca and ascites. Air within the urinary bladder. Electronically signed by: Jung Arriola MD 02/11/2020 2:15 AM CDT Due to temporary technical issues with the PACS/Fluency reporting system, reports are being signed by the in house radiologist as a courtesy to ensure prompt reporting. The interpreting radiologist is f ully responsible for the content of the report.
[2020-02-11] MEDS: NA CHLORIDE 0.9% 1,000 ML IV SCH (10:39)
[2020-02-11] MEDS: DRISDOL (VITAMIN D=ERGOCALCIFEROL) 50000 UNIT CAP PO SCH (12:22)
--- NOTE | 2020-02-11 13:54 | CON ---
Date of Consultation: 02/11/2020 Reason For Consultation: Elevated BUN and creatinine, fluid management. History Of Present Illness: This is 40-year-old female, well known to me from the office with signif icant past medical history of chronic kidney disease, stage 4, diabetes since 2004, complicated with neuropathy, nephropathy, hypertension, hyperlipidemia, vitamin D deficiency, gastroparesis, chronic k idney disease, stage 4, secondary to diabetic nephropathy, baseline creatinine 2-2.5. The patient juarez d recurrent admissions to the hospital with gastroparesis. The patient on last admission to the hosp ital was, back in December with ER visit, with the same complaint. At this time, patient came to the [facility] complaining of nausea, vomiting, and abdominal pain, found to have gastroparesis. CT of the a bdomen was negative for any etiology. There is no obstructive uropathy, found to have also UTI. The patient, upon arrival to the hospital, her creatinine was 3, GFR of 17. Reviewing the record back i december, creatinine 2.4, GFR of 22. Patient denied taking any nonsteroidal, no IV contrast. Allergies: NO KNOWN DRUGS ALLERGY. Past Medical History: 1.Diabetes complicated with neuropathy and nephropathy. 2.Hypertension. 3.Chronic kidney disease, stage 4, normal-sized kidney, nephrotic range of proteinuria. Baseline cr eatinine 2-2.5, GFR 20. 4.GERD. 5.Gastroparesis. Medications: Home medications include Carafate, pantoprazole, metoclopramide, insulin, Lasix 80 aamir y, erythromycin, ciprofloxacin, and carvedilol 25 b.i.d. Current medications in the hospitalinclude ceftriaxone, hydralazine, insulin, metoclopramide, [place], Carafate. Family History: Positive for chronic kidney disease and diabetes. Past Surgical History: Includes cholecystectomy and appendectomy. Social History: Denies smoking. Denies drinking. Denies drug abuse. Review of Systems: Head and Neck: No red eye. No ear pain. GI: Has nausea, vomiting. Has epigastric pain. : No polyuria, no dysuria, no hematuria. CUSTOMER CONSULTING MANAGER: No vaginal discharge. Respiratory: No shortness of breath. Cardiovascular: No leg swelling. Endocrine: No polydipsia. Skin: No rash. Neuro: Has neuropathy. Musculoskeletal: No joint pain. Skin: No rash. Physical Examination: Vital Signs: When I saw the patient, blood pressure of 135/79, pulse of 91, afebrile. The patient h ad no documented urine output. Chest: Clear to auscultation. Heart: S1, S2. Regular. Abdomen: Soft. Mild tenderness in the epigastric area. No guarding or rebound. Extremities: No edema. Neurologic: Alert, oriented x3. No focal. Laboratory Data: Sodium 136, potassium 4.4, bicarb 19, BUN 43, creatinine 2.9, GFR of 18, glucose 29 1, calcium 9.2. Albumin 3.2. Urinalysis, specific gravity 1.025, +2 of blood, +1 leukocyte esterase , +3 protein. Protein/creatinine ratio before 3.6. Reviewing the CT abdomen and pelvis, no hydronep hrosis. Several minimal punctuated renal calculi without any hydronephrosis, clear effusion, ascites , and anasarca. Chest x-ray, no cardiomegaly, mild congestion, compared with the old chest x-ray, sl ightly more wet. Serum protein electrophoresis before was done, was normal, no monoclonal. Assessment And Plan: 1.Acute kidney injury on chronic kidney disease secondary to prerenal, secondary to gastrointestinal loss, nausea, and vomiting. I am going to go ahead and hold the diuresis. Start the patient on gen tle hydration, and we will monitor the patient closely. 2.Nephrotic range of proteinuria secondary to diabetes. Workup was done before. Unfortunately, giv en the advanced disease, we will not be able to initiate any JARRETT inhibitor or ARB. 3.Hypertension, controlled, optimal. Keep holding any JARRETT inhibitor or ARB. Continue carvedilol fo r the time being. We will resume IV fluid. 4.Urinary tract infection. I agree with ceftriaxone. 5.Gastroparesis secondary to diabetes. Workup was done before. Continue symptomatic treatment. Fo llow up with the primary. 6.Diabetes as by primary. 7.Secondary hyperparathyroidism with vitamin D deficiency. We will start the patient on ergocalcife rol. MANOJ Voice ID: [id number] Report ID: [id number]
[2020-02-11] MEDS ORDERED: PROMETHAZINE INJ 25 MG/ML AMP IV PRN (15:33)
[2020-02-12] MEDS: ACETAMINOPHEN 325 MG TABLET PO PRN ×3 (02:03→16:23)
[2020-02-12] MEDS: NA CHLORIDE 0.9% 1,000 ML IV SCH ×3 (02:03→16:26)
[2020-02-12] MEDS: HYDRALAZINE HCL 20 MG/ML VIAL IV PRN (02:13)
[2020-02-12] MEDS: ONDANSETRON 4 MG/2 ML VIAL IV PRN ×2 (02:15→20:41)
[2020-02-12 05:58] LABS: Albumin 2.8 g/dL (3.4-5.0); Bilirubin Total 0.2 mg/dL (0.2-1.0); Potassium 3.6 mmol/L (3.5-5.1); Protein, Total 5.9 g/dL (6.4-8.2)
[2020-02-12 06:25] LABS: Absolute Lymphocytes (CBC) 0.6 K/uL (0.7-4.9); Basophils % 0.7 % (0-1.3); Hematocrit 23.6 % (36.0-45.0); Lymphocytes % 7.8 % (15.3-44.8); MPV 9.3 fL (7.6-11.3); RBC Red Blood Cell Count 2.88 M/uL (3.86-4.86)
[2020-02-12] MEDS: CEFTRIAXONE/SWI 1gm 1 GM/10 ML SYR IV SCH (08:20)
[2020-02-12] MEDS: carvediloL 25 MG TAB PO SCH ×2 (08:22→20:43)
[2020-02-12] MEDS: SUCRALFATE 1 GM TABLET PO SCH ×4 (08:22→20:42)
[2020-02-12] MEDS: METOCLOPRAMIDE 5 MG TAB PO SCH ×4 (08:22→20:42)
[2020-02-12] MEDS: FAMOTIDINE 20 MG/2 ML VIAL IV SCH (08:22)
[2020-02-12] MEDS: INSULIN -REGULAR HUMAN 50 UNIT/0.5 ML ML SQ SCH ×4 (08:23→20:43)
[2020-02-12 08:25] LABS: Anisocytosis 1+; Blood Morphology Comment NOTED (NOT SEEN); Hypochromasia 1+; Ovalocytes 1+; Platelet Estimate ADEQ; Urine White Blood Cell Casts OK
[2020-02-12] MEDS ORDERED: SODIUM CHLORIDE 0.9% 10ML INJ IV PRN (08:47)
[2020-02-12] MEDS: PANTOPRAZOLE 40 MG INJ IVP SCH ×2 (10:46→20:41)
--- NOTE | 2020-02-12 11:23 | P.PN ---
Subjective Date of Service: 02/12/20 Chief Complaint: Intractable vomiting Subjective Pt with CKDIIIb/IV , DM , and HTN admitted for intractable nausea and vomiting pt with frequent ER visits for similar reason today cr slightly better Ct scan with ,ild b/l effusion will dc IVF tomorrow Temp 100.3 today still have nausea, bur no more vomiting will give epogen X1 once BP improves will send for anemia w/u Physical exam general: AAOX3, in mild distress, naseous Neck; Supple, No elevated JVD hear: RRR, normal S1,2 no murmur or rub Chest: CTAB, no rlaes or wheezes Abdomen: Soft , Nt Extremities trace edema progressive CKD IIIb/IV proteinuric baseline Cr ~2.0 last year and recetly ~2.5 due to DM and HTN nephrosclerosis serology W/U in the past including GABRIELLE, ANCA, C3, C4, Hep panel and HIV all negative avoid NSAID and contrast will cont gentle hydration for now IDDM as per primary team Acute on chronic anemia PPI will sned for anemia work up will give epogen tomorrow if Bp better HTN will add hydralazine recurrent Nausea and vomiting likely due to gastroparesis Cont metolcoperamide and zofran air in the bladder cont abx will recommend urology evaluation total time spent 35 minutes Physical Examination - Vital Signs Temperature: 99.8 F Blood Pressure: 168/77 Pulse: 99 Respirations: 18 Pulse Ox (%): 92 Assessment And Plan Physician Review: Patient Assessed, Agree with Above Assessment and Plan
--- NOTE | 2020-02-12 12:06 | EKG ---
Test Date: 2020-02-10 Test Time: 23:46:55 Bakery Machine Mechanic Supervisor: MOISES MEASUREMENT RESULTS: Intervals: Rate: 105 ME: 148 QRSD: 66 QT: 354 QTc: 467 Romeo: P: 78 ME: 148 QRS: 23 T: 61 INTERPRETIVE STATEMENTS: Sinus tachycardia Cannot rule out Anterior infarct, age undetermined Abnormal ECG Compared to ECG 01/17/2020 15:48:49 Sinus rhythm no longer present Myocardial infarct finding still present Electronically Signed On 02-12-20 12:03:08 CDT by Marquez Walter
[2020-02-12] MEDS ORDERED: VANCOMYCIN 1 GM in NA CHLORIDE 0.9% 500 ML IVPB ONE (13:00)
[2020-02-12] MEDS ORDERED: VANCOMYCIN/NS 1 gm 1 GM/250 ML BAG IV SCH (13:00)
[2020-02-12] MEDS: ERYTHROMYCIN 250 MG PO SCH ×2 (13:44→20:42)
[2020-02-12] MEDS: HYDRALAZINE HCL 25 MG TABLET PO SCH ×2 (13:46→20:42)
--- NOTE | 2020-02-12 13:48 | RAD REPORT ---
EXAM DESCRIPTION: Tami Single View02/12/2020 1:39 pm CLINICAL HISTORY: sob COMPARISON: February 10, 2020 FINDINGS: Small bilateral pleural effusions. Mild left basilar opacity. The heart is normal size IMPRESSION: Small bilateral pleural effusions Development of a mild left basilar opacities may indicate pneumonia
--- NOTE | 2020-02-12 19:32 | P.PN ---
Subjective Date of Service: 02/12/20 Chief Complaint: Intractable vomiting Subjective: Worsening (Patient spiked a fever of 101 degrees. No drastic improvement of her sx) Physical Examination - Vital Signs Temperature: 99.6 F Blood Pressure: 164/78 Pulse: 94 Respirations: 18 Pulse Ox (%): 93 - Physical Exam General: Mild distress, Other (lethargic) HEENT: Atraumatic, Normocephalic Neck: Supple Respiratory: Clear to auscultation bilaterally, Normal air movement Cardiovascular: No edema, Normal pulses, Regular rate/rhythm, Normal S1 S2, Edema Gastrointestinal: Normal bowel sounds, Soft and benign, Non-distended Musculoskeletal: No clubbing, No swelling, No contractures, No erythema, No tenderness, No warmth Integumentary: Warmth Neurological: Normal speech, Sensation intact, Normal affect Assessment & Plan - Problems (Diagnosis) (1) UTI (urinary tract infection) Current Visit: Yes Status: Acute (2) Pleural effusion Current Visit: No Status: Acute (3) Pneumonia Current Visit: No Status: Acute (4) UTI (urinary tract infection) Current Visit: No Status: Acute Qualifiers: Urinary tract infection type: acute cystitis (5) Ulcerated, duodenum Current Visit: No Status: Acute (6) Uncontrolled hypertension Current Visit: No Status: Acute (7) Chronic kidney disease, stage 3 Current Visit: No Status: Chronic (8) Gastroparesis Current Visit: No Status: Chronic Physician Review: Patient Assessed, Agree with Above Assessment and Plan Physician Review Additional Text: Assessment Patient is a 40 year old female with HTN, type II diabetes mellitus, gastroparesis and CKD who presented with intractable nausea and vomiting. Spiked a fever of 101 degrees with CXR concerning for LLL PNA # intractable nausea and vomiting # Possible PNA # hypertension # Anemia # Acute pulmonary edema/bilateral pleural effusion # Diabetes mellitus PLAN: Continue volume repletion Continue vancomycin and ceftriaxone for UTI and possible PNA Continue zofran and reglan H2 blockers changed to PPI by GI. No intervention for gastroparesis Continue diuresis with IV lasix Nephrology recommends Urology consult as CT A/P showed air in the bladder. No urology radiation protection specialist. Will attempt tomorrow Continue insulin sliding scale PRN hydralazine for accelerated BP
[2020-02-13] MEDS ORDERED: SCOPOLAMINE HYDROBROMIDE PATCH TD ONE (02:57)
[2020-02-13] MEDS: ONDANSETRON 4 MG/2 ML VIAL IV PRN (03:17)
[2020-02-13] MEDS: LORAZEPAM 0.5 MG TABLET PO PRN (03:40)
[2020-02-13 06:08] LABS: Absolute Lymphocytes (CBC) 0.6 K/uL (0.7-4.9); Basophils % 0.7 % (0-1.3); Hematocrit 23.4 % (36.0-45.0); Lymphocytes % 8.5 % (15.3-44.8); MPV 9.8 fL (7.6-11.3); RBC Red Blood Cell Count 2.86 M/uL (3.86-4.86)
[2020-02-13 06:25] LABS: Potassium 3.5 mmol/L (3.5-5.1)
[2020-02-13 08:48] LABS: Ferritin 32.9 ng/mL (8-388); Folic Acid, (Folate) 11.2 ng/mL (3.1-17.5)
[2020-02-13] MEDS: ERYTHROMYCIN 250 MG PO SCH ×3 (09:00→20:44)
[2020-02-13] MEDS: PANTOPRAZOLE 40 MG INJ IVP SCH ×2 (10:19→20:42)
[2020-02-13] MEDS: HYDRALAZINE HCL 25 MG TABLET PO SCH ×3 (10:19→20:42)
[2020-02-13] MEDS: METOCLOPRAMIDE 5 MG TAB PO SCH ×4 (10:20→20:42)
[2020-02-13] MEDS: carvediloL 25 MG TAB PO SCH ×2 (10:20→20:42)
[2020-02-13] MEDS: SUCRALFATE 1 GM TABLET PO SCH ×4 (10:20→20:42)
[2020-02-13] MEDS: INSULIN -REGULAR HUMAN 50 UNIT/0.5 ML ML SQ SCH ×4 (10:21→20:55)
[2020-02-13] MEDS: CEFTRIAXONE/SWI 1gm 1 GM/10 ML SYR IV SCH (10:23)
--- NOTE | 2020-02-13 12:04 | P.PN ---
Subjective Date of Service: 02/13/20 Chief Complaint: Intractable vomiting Subjective Pt with CKDIIIb/IV , DM , and HTN admitted for intractable nausea and vomiting pt with frequent ER visits for similar reason today feels better cr down to 2.5 will Dc IVF will start IV Iron and epogen will increase hydralazine Physical exam general: AAOX3, in mild distress, naseous Neck; Supple, No elevated JVD hear: RRR, normal S1,2 no murmur or rub Chest: CTAB, no rlaes or wheezes Abdomen: Soft , Nt Extremities trace edema GUS on CKD IIIb/IV resolved due to dehydration proteinuric due to DM and HTN nephrosclerosis serology W/U in the past including GABRIELLE, ANCA, C3, C4, Hep panel and HIV all negative avoid NSAID and contrast IDDM as per primary team Acute on chronic anemia PPI will start on IV iron epogen X1 HTN will increase hydralazine recurrent Nausea and vomiting likely due to gastroparesis Cont metolcoperamide and zofran air in the bladder cont abx will recommend urology evaluation total time spent 35 minutes Physical Examination - Vital Signs Temperature: 98 F Blood Pressure: 187/91 Pulse: 97 Respirations: 18 Pulse Ox (%): 94 - Studies Microbiology Data (last 24 hrs): 02/11/20 00:50 Clean Catch Urine [place] Count - Final >100,000 CFU/ML. 02/11/20 00:50 Clean Catch Urine - Final Klebsiella Pneumoniae Assessment And Plan Physician Review: Patient Assessed, Agree with Above Assessment and Plan
[2020-02-13] MEDS ORDERED: EPOETIN 4,000 UNIT/ML VIAL IV ONE (13:00)
[2020-02-13] MEDS: ACETAMINOPHEN 325 MG TABLET PO PRN (13:10)
--- NOTE | 2020-02-13 19:57 | P.PN ---
Subjective Date of Service: 02/13/20 Chief Complaint: Intractable vomiting Subjective: No new changes (Poor oral intake except for water. Afebrile but still lethargic.) Physical Examination - Vital Signs Temperature: 97.9 F Blood Pressure: 151/74 Pulse: 80 Respirations: 18 Pulse Ox (%): 88 - Physical Exam General: Cooperative, Mild distress, Other (lethargic) HEENT: Atraumatic, Normocephalic, Mucous membr. moist/pink, EOMI Neck: Supple Respiratory: Clear to auscultation bilaterally, Normal air movement Cardiovascular: No edema, Normal pulses, Regular rate/rhythm, Normal S1 S2 Gastrointestinal: Normal bowel sounds, Soft and benign, No ascites, Tenderness Musculoskeletal: No clubbing, No swelling, No contractures, No erythema, No ten derness, No warmth, Other (lethargic) Integumentary: No rashes, No breakdown, No significant lesion, No tenderness/swelling, No erythema, No warmth, No cyanosis Neurological: Normal speech, Sensation intact, Normal affect - Studies Microbiology Data (last 24 hrs): 02/11/20 00:50 Clean Catch Urine [place] Count - Final >100,000 CFU/ML. 02/11/20 00:50 Clean Catch Urine - Final Klebsiella Pneumoniae Assessment & Plan - Problems (Diagnosis) (1) UTI (urinary tract infection) Current Visit: Yes Status: Acute (2) Pleural effusion Current Visit: No Status: Acute (3) Pneumonia Current Visit: No Status: Acute (4) UTI (urinary tract infection) Current Visit: No Status: Acute Qualifiers: Urinary tract infection type: acute cystitis (5) Ulcerated, duodenum Current Visit: No Status: Acute (6) Uncontrolled hypertension Current Visit: No Status: Acute (7) Chronic kidney disease, stage 3 Current Visit: No Status: Chronic (8) Gastroparesis Current Visit: No Status: Chronic Physician Review: Patient Assessed, Agree with Above Assessment and Plan Physician Review Additional Text: Assessment Patient is a 40 year old female with HTN, type II diabetes mellitus, gastroparesis and CKD who presented with intractable nausea and vomiting. Afebrile for the past 24 hours. Urine cultures yielded zaldivar-sensitive Klebsiella PNA. She is also being treated for possible aspiration PNA. # intractable nausea and vomiting # Possible PNA # hypertension # Anemia # Acute pulmonary edema/bilateral pleural effusion # Diabetes mellitus # UTI PLAN: Will start gentle D5 1/2 NS since patient has poor PO intake Discontinue vancomcyin. Continue ceftriaxone for UTI and possible PNA Continue zofran and reglan Continue PPI as per GI. No intervention for gastroparesis Continue diuresis with IV lasix Nephrology recommends Urology consult as CT A/P showed air in the bladder. 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 Continue insulin sliding scale PRN hydralazine for accelerated BP
[2020-02-13] MEDS: D5 0.45 NS 1,000 ML IV SCH (20:41)
[2020-02-14] MEDS: ONDANSETRON 4 MG/2 ML VIAL IV PRN ×4 (00:58→23:36)
[2020-02-14] MEDS ORDERED: PROMETHAZINE INJ 25 MG/ML AMP ONE (03:25)
[2020-02-14] MEDS: MORPHINE 2 MG/ML SYR IV PRN ×2 (03:34→08:51)
[2020-02-14 03:44] VITALS: BMI 21.7
[2020-02-14] MEDS: carvediloL 25 MG TAB PO SCH ×2 (08:30→21:27)
[2020-02-14] MEDS: METOCLOPRAMIDE 5 MG TAB PO SCH ×4 (08:30→21:28)
[2020-02-14] MEDS: PANTOPRAZOLE 40 MG INJ IVP SCH ×2 (08:31→21:27)
[2020-02-14] MEDS: SUCRALFATE 1 GM TABLET PO SCH ×4 (08:31→21:28)
[2020-02-14] MEDS: SOD FERRIC GLUC COMPLX/SUCROSE 125 MG in NA CHLORIDE 0.9% 100 ML IV SCH (08:32)
[2020-02-14] MEDS: CEFTRIAXONE/SWI 1gm 1 GM/10 ML SYR IV SCH (08:32)
[2020-02-14] MEDS: HYDRALAZINE HCL 25 MG TABLET PO SCH ×4 (08:32→21:28)
[2020-02-14] MEDS: INSULIN -REGULAR HUMAN 50 UNIT/0.5 ML ML SQ SCH ×4 (08:33→22:02)
[2020-02-14] MEDS: ERYTHROMYCIN 250 MG PO SCH ×3 (09:00→22:05)
[2020-02-14] MEDS ORDERED: NIFEDIPINE XL 30 MG TABLET PO SCH (09:00)
[2020-02-14] MEDS: HYDRALAZINE HCL 20 MG/ML VIAL IV PRN (12:28)
[2020-02-14] MEDS: D5 0.45 NS 1,000 ML IV SCH ×2 (12:30→22:29)
[2020-02-14] MEDS ORDERED: PROMETHAZINE INJ 25 MG/ML AMP IV ONE (16:13)
[2020-02-14 16:19] LABS: Absolute Lymphocytes (CBC) 0.7 K/uL (0.7-4.9); Basophils % 0.7 % (0-1.3); Hematocrit 23.9 % (36.0-45.0); Lymphocytes % 10.1 % (15.3-44.8); RBC Red Blood Cell Count 2.99 M/uL (3.86-4.86)
[2020-02-14 16:33] LABS: Potassium 3.4 mmol/L (3.5-5.1)
[2020-02-14] MEDS: HYDROMORPHONE HCL 0.5 MG/0.5 ML INJ IV PRN (16:36)
--- NOTE | 2020-02-14 18:05 | P.PN ---
Subjective Date of Service: 02/14/20 Chief Complaint: Intractable vomiting Subjective: No new changes, New changes (intractable nausea. MILD abdominal pain. Anti-emetic changed to phenergan.) Physical Examination - Vital Signs Temperature: 98 F Blood Pressure: 105/55 Pulse: 82 Respirations: 18 Pulse Ox (%): 94 - Physical Exam General: Alert, In no apparent distress, Moderate distress, Other (lethargic) HEENT: Atraumatic, Normocephalic Neck: Supple Respiratory: Clear to auscultation bilaterally, Normal air movement Cardiovascular: No edema, Normal pulses, Regular rate/rhythm, Normal S1 S2 Gastrointestinal: Normal bowel sounds, Soft and benign, Non-distended Musculoskeletal: Other (R hand edema) Integumentary: No rashes, No breakdown, No significant lesion, No tenderness/swelling, No erythema, No warmth, No cyanosis Neurological: Normal speech, Normal tone, Normal affect Assessment & Plan - Problems (Diagnosis) (1) UTI (urinary tract infection) Current Visit: Yes Status: Acute (2) Pleural effusion Current Visit: No Status: Acute (3) Pneumonia Current Visit: No Status: Acute (4) UTI (urinary tract infection) Current Visit: No Status: Acute Qualifiers: Urinary tract infection type: acute cystitis (5) Ulcerated, duodenum Current Visit: No Status: Acute (6) Uncontrolled hypertension Current Visit: No Status: Acute (7) Chronic kidney disease, stage 3 Current Visit: No Status: Chronic (8) Gastroparesis Current Visit: No Status: Chronic Physician Review: Patient Assessed, Agree with Above Assessment and Plan Physician Review Additional Text: Assessment Patient is a 40 year old female with HTN, type II diabetes mellitus, gastroparesis and CKD who presented with intractable nausea and vomiting. Afebrile for the past 24 hours. Urine cultures yielded zaldivar-sensitive Klebsiella PNA. She is also being treated for possible aspiration PNA. # intractable nausea and vomiting # Possible PNA # hypertension # Anemia # Acute pulmonary edema/bilateral pleural effusion # Diabetes mellitus # Klebsiella pneumonia UTI PLAN: Continue gentle D5 1/2 NS infusion since patient has poor PO intake Switch from zofran to phenergan Continue reglan and erythromycin Continue PPI as per GI. No intervention for gastroparesis Continue ceftriaxone for zaldivar-sensitive Klebsiella PNA UTI Nephrology recommends Urology consult as CT A/P showed air in the bladder. No urology obstetrics nurse practitioner. Continue insulin sliding scale PRN hydralazine for accelerated BP. Nifedipidine added for uncontrolled BP.
[2020-02-14] MEDS ORDERED: POTASSIUM CL 40 MEQ in NA CHLORIDE 0.9% 500 ML IV SCH (20:00)
[2020-02-14] MEDS ORDERED: NA CHLORIDE 0.9% 500 ML ONE (21:06)
[2020-02-14] MEDS ORDERED: KCL 20 MEQ/100 mL IVPB 40 MEQ/200 ML BAG IV ONE (21:13)
[2020-02-14] MEDS: LORAZEPAM 0.5 MG TABLET PO PRN (23:52)
[2020-02-15 04:27] LABS: Absolute Lymphocytes (CBC) 0.8 K/uL (0.7-4.9); Basophils % 0.4 % (0-1.3); Hematocrit 24.2 % (36.0-45.0); Lymphocytes % 10.8 % (15.3-44.8); MPV 9.9 fL (7.6-11.3); RBC Red Blood Cell Count 2.98 M/uL (3.86-4.86)
[2020-02-15 04:39] LABS: Potassium 3.8 mmol/L (3.5-5.1)
[2020-02-15] MEDS: HYDROMORPHONE HCL 0.5 MG/0.5 ML INJ IV PRN ×3 (06:01→17:46)
[2020-02-15] MEDS: D5 0.45 NS 1,000 ML IV SCH ×2 (07:17→17:39)
[2020-02-15] MEDS: ERYTHROMYCIN 250 MG PO SCH ×3 (09:00→21:10)
[2020-02-15] MEDS: CEFTRIAXONE/SWI 1gm 1 GM/10 ML SYR IV SCH (09:23)
[2020-02-15] MEDS: SUCRALFATE 1 GM TABLET PO SCH ×4 (09:30→21:10)
[2020-02-15] MEDS: METOCLOPRAMIDE 5 MG TAB PO SCH ×4 (09:30→21:10)
[2020-02-15] MEDS: carvediloL 25 MG TAB PO SCH ×2 (09:30→21:10)
[2020-02-15] MEDS: HYDRALAZINE HCL 25 MG TABLET PO SCH ×3 (09:31→21:10)
[2020-02-15] MEDS: NIFEDIPINE XL 60 MG TABLET PO SCH (09:38)
[2020-02-15] MEDS: INSULIN -REGULAR HUMAN 50 UNIT/0.5 ML ML SQ SCH ×4 (09:38→21:11)
[2020-02-15] MEDS: SOD FERRIC GLUC COMPLX/SUCROSE 125 MG in NA CHLORIDE 0.9% 100 ML IV SCH (11:21)
[2020-02-15] MEDS: PANTOPRAZOLE 40 MG INJ IVP SCH ×2 (11:24→21:10)
[2020-02-15] MEDS: ONDANSETRON 4 MG/2 ML VIAL IV PRN ×2 (11:27→17:46)
--- NOTE | 2020-02-15 15:31 | P.PN ---
Subjective Date of Service: 02/15/20 Chief Complaint: Intractable vomiting Subjective: Other (Slight improvement. Did not tolerate renal diet. Patient with history of diabetic gastroparesis.) Physical Examination - Vital Signs Temperature: 98.8 F Blood Pressure: 165/79 Pulse: 89 Respirations: 16 Pulse Ox (%): 95 - Physical Exam General: Alert HEENT: Atraumatic Neck: Supple Respiratory: Clear to auscultation bilaterally, Normal air movement Cardiovascular: Normal pulses, Regular rate/rhythm Gastrointestinal: Normal bowel sounds, Soft and benign, Non-distended, No tenderness, No masses, No rebound, No guarding Neurological: Normal speech, Normal strength at 5/5 x4 extr, Normal tone, Normal affect - Studies Medications List Reviewed: Yes Assessment & Plan Discharge Plan: Home Plan to discharge in: 24 Hours Physician Review Additional Text: Impression: Intractable nausea and vomiting likely secondary to diabetic gastroparesis Diabetes mellitus type 2 Chronic renal disease stage II Chronic bilateral pleural effusion Hypertension UTI-Klebsiella Plan: Will continue with Reglan and E-Mycin. Case discussed with pharmacy to obtain E-Mycin. Continue to monitor closely. Encourage ambulation. Case discussed with nephrology. Continue to monitor closely. Medications reviewed. Continue antibiotic coverage for UTI. Anticipate improvement over the next 24 hr. Time Spent Managing Pts Care (In Minutes): 55
[2020-02-15 19:00] LABS: Urine Protein/Creatinine Ratio 4.83 ratio (<0.15)
[2020-02-16] MEDS: D5 0.45 NS 1,000 ML IV SCH (00:23)
--- NOTE | 2020-02-16 01:44 | PN ---
Date of Progress Note: 02/15/2020 Chief Complaint: Chronic kidney disease stage 3B/4, diabetes mellitus, hypertension. History Of Present Illness: Patient was admitted for intractable nausea and vomiting. Patient has frequent visits to emergency room for similar symptoms. The patient is feeling better. IV fluids were stopped. Creatinine level improved to 2.5. Review of Systems: Denies new complaints. Physical Examination: Lungs: Diminished breath sounds at bases. Heart: S1, S2. Abdomen: Soft, benign. Extremities: No edema. Laboratory Data: Sodium 134, potassium 3.8, chloride 103, CO2 21, BUN 23, creatinine 2.75, glucose 152, calcium 7.9. Impression And Plan: 1. Acute on chronic kidney injury. Renal function is stabilizing. Patient has nonoliguric urine output. Continue to monitor fluid balance. The patient completed IV fluids. Monitor electrolytes and avoid nephrotoxic medication. 2. Hypertension, adjust blood pressure medication. Monitor blood pressure closely and plan is to check renal function with renal panel in the morning. 3. Hypertension. Hydralazine was increased recently. Monitor blood pressure, nausea, vomiting, likely patient has diabetic gastroparesis. Continue metoclopramide and Zofran. Patient is tolerating metoclopramide. Patient will have Urology evaluation. Plan is to continue antibiotics for possible complicated urinary tract infection. Urine culture showed Klebsiella pneumonia. Continue antibiotics. ROSEANNA/NATANAEL Voice ID: [id number] Report ID: [id number] MTDD
[2020-02-16] MEDS: ONDANSETRON 4 MG/2 ML VIAL IV PRN ×3 (02:37→22:35)
[2020-02-16] MEDS: HYDROMORPHONE HCL 0.5 MG/0.5 ML INJ IV PRN ×4 (02:37→22:35)
[2020-02-16 04:09] LABS: Absolute Lymphocytes (CBC) 0.7 K/uL (0.7-4.9); Basophils % 0.5 % (0-1.3); Hematocrit 23.3 % (36.0-45.0); Lymphocytes % 8.8 % (15.3-44.8); MPV 9.9 fL (7.6-11.3); RBC Red Blood Cell Count 2.89 M/uL (3.86-4.86)
[2020-02-16 04:18] LABS: Potassium 3.5 mmol/L (3.5-5.1)
[2020-02-16] MEDS: SOD FERRIC GLUC COMPLX/SUCROSE 125 MG in NA CHLORIDE 0.9% 100 ML IV SCH (08:44)
[2020-02-16] MEDS: ERYTHROMYCIN 250 MG PO SCH ×3 (08:44→20:12)
[2020-02-16] MEDS: PANTOPRAZOLE 40 MG INJ IVP SCH ×2 (08:46→20:11)
[2020-02-16] MEDS: INSULIN -REGULAR HUMAN 50 UNIT/0.5 ML ML SQ SCH ×4 (08:46→20:12)
[2020-02-16] MEDS: METOCLOPRAMIDE 5 MG TAB PO SCH ×4 (08:47→20:11)
[2020-02-16] MEDS: HYDRALAZINE HCL 25 MG TABLET PO SCH ×3 (08:47→20:11)
[2020-02-16] MEDS: CEFTRIAXONE/SWI 1gm 1 GM/10 ML SYR IV SCH (08:47)
[2020-02-16] MEDS: NIFEDIPINE XL 60 MG TABLET PO SCH (08:48)
[2020-02-16] MEDS: SUCRALFATE 1 GM TABLET PO SCH ×4 (08:48→20:11)
[2020-02-16] MEDS: carvediloL 25 MG TAB PO SCH ×2 (08:49→20:10)
--- NOTE | 2020-02-16 12:48 | P.PN ---
Subjective Date of Service: 02/16/20 Chief Complaint: Intractable vomiting Subjective Pt with CKDIIIb/IV , DM , and HTN admitted for intractable nausea and vomiting pt with frequent ER visits for similar reason , cr 2.8 on admission, improved on IVF , ,now trending up , BP dropped after starting Nifedipine, r up to 3.1 today still have nausea and vomiting BP lower normal after starting nifedipine Bora now likely due to ATN from drope in BP +/- dehydration edema resolved , will restart NS Physical exam general: AAOX3, in mild distress, naseous Neck; Supple, No elevated JVD hear: RRR, normal S1,2 no murmur or rub Chest: CTAB, no rlaes or wheezes Abdomen: Soft , Nt Extremities trace edema BORA on CKD IIIb/IV resolved due to dehydration proteinuric due to DM and HTN nephrosclerosis serology W/U in the past including GABRIELLE, ANCA, C3, C4, Hep panel and HIV all negative avoid NSAID and contrast IDDM as per primary team Acute on chronic anemia PPI cont IV iron epogen X1 transfuse to keep Hb>7.0 HTN will increase hydralazine recurrent Nausea and vomiting likely due to gastroparesis Cont metolcoperamide and zofran air in the bladder cont abx urology evaluation as an OP total time spent 35 minutes Physical Examination - Vital Signs Temperature: 98.4 F Blood Pressure: 112/70 Pulse: 83 Respirations: 15 Pulse Ox (%): 96 - Studies Medications List Reviewed: Yes Assessment And Plan Physician Review: Patient Assessed, Agree with Above Assessment and Plan
[2020-02-16] MEDS ORDERED: NA CHLORIDE 0.9% 250 ML ONE (13:18)
[2020-02-16] MEDS: D5 0.9 NS 1,000 ML IV SCH (13:22)
--- NOTE | 2020-02-16 17:02 | P.PN ---
Subjective Date of Service: 02/16/20 Chief Complaint: Intractable vomiting Subjective: Other (Overall improved.) Physical Examination - Vital Signs Temperature: 98.4 F Blood Pressure: 112/70 Pulse: 83 Respirations: 15 Pulse Ox (%): 96 - Physical Exam General: Alert, Cooperative HEENT: Atraumatic, Normocephalic Respiratory: Clear to auscultation bilaterally, Normal air movement Cardiovascular: Normal pulses, Regular rate/rhythm Gastrointestinal: Normal bowel sounds, Soft and benign, Non-distended - Studies Medications List Reviewed: Yes Assessment & Plan Discharge Plan: Home Plan to discharge in: 24 Hours Physician Review Additional Text: Impression: Intractable nausea and vomiting likely secondary to diabetic gastroparesis Diabetes mellitus type 2 Chronic renal disease stage II Chronic bilateral pleural effusion Hypertension UTI-Klebsiella Plan: Will continue with Reglan and E-Mycin. Encourage ambulation. Encourage diet. Continue with current recommendations and medications. Hope to discharge tomorrow if clinically stable. Will discuss further with nephrology. Patient will need GI evaluation for possible nerve stimulator for chronic gastroparesis. Time Spent Managing Pts Care (In Minutes): 55
[2020-02-16 23:56] LABS: Hematocrit 26.1 % (36.0-45.0)
[2020-02-17] MEDS: D5 0.9 NS 1,000 ML IV SCH (05:01)
[2020-02-17] MEDS: HYDROMORPHONE HCL 0.5 MG/0.5 ML INJ IV PRN ×3 (06:36→20:05)
[2020-02-17] MEDS: ONDANSETRON 4 MG/2 ML VIAL IV PRN ×2 (06:36→20:03)
[2020-02-17] MEDS: METOCLOPRAMIDE 5 MG TAB PO SCH ×4 (07:45→20:09)
[2020-02-17] MEDS: SUCRALFATE 1 GM TABLET PO SCH ×4 (07:46→20:08)
[2020-02-17] MEDS: CEFTRIAXONE/SWI 1gm 1 GM/10 ML SYR IV SCH (08:54)
[2020-02-17] MEDS: PANTOPRAZOLE 40 MG INJ IVP SCH ×2 (08:54→20:09)
[2020-02-17] MEDS: SOD FERRIC GLUC COMPLX/SUCROSE 125 MG in NA CHLORIDE 0.9% 100 ML IV SCH (08:54)
[2020-02-17] MEDS: carvediloL 25 MG TAB PO SCH ×2 (08:55→20:09)
[2020-02-17] MEDS: HYDRALAZINE HCL 25 MG TABLET PO SCH ×3 (08:55→20:08)
[2020-02-17] MEDS: INSULIN -REGULAR HUMAN 50 UNIT/0.5 ML ML SQ SCH ×4 (08:55→20:10)
[2020-02-17] MEDS ORDERED: NIFEDIPINE XL 30 MG TABLET PO SCH (09:00)
[2020-02-17] MEDS: ERYTHROMYCIN 250 MG PO SCH ×3 (09:02→20:15)
[2020-02-17] MEDS: D5 0.45 NS 1,000 ML IV SCH (14:08)
--- NOTE | 2020-02-17 14:30 | PN ---
Date of Progress Note: 02/17/2020 History Of Present Illness: Patient was admitted with acute kidney injury on advanced chronic kidney disease secondary to gastrointestinal loss secondary to gastroparesis. Patient being on IV fluid. Kidney function continue to fluctuate. Patient continued to have nausea and vomiting, difficulty storm erating diet. Physical Examination: Vital Signs: Blood pressure 155/75, pulse of 88. Patient had good urine output above 500. Chest: Clear to auscultation. Heart: S1-S2 regular. Abdomen: Soft. Mild tenderness on the epigastric area. No guarding or rebound. Extremities: No edema. Laboratory Data: H and H 8.5/26.1. Sodium 133, potassium 3.5, bicarb 19, BUN 33, creatinine 3.1, ca lcium 8.1. This is as lab was done yesterday. Current Medications: The patient on include; ceftriaxone, IV iron, carvedilol 25 b.i.d., nifedipine, hydralazine 50 t.i.d., Carafate D5 half. Assessment And Plan: 1.Acute kidney injury secondary to prerenal. I am going to go ahead and increase IV fluid and dumont e it to D5 half-normal at 100 per hour to avoid hypertonic fluid. We will continue to monitor the pa tient. 2.Gastroparesis. Continue symptomatic treatment. 3.Nephrotic range of proteinuria. Unfortunately with current kidney function I will be hesitant to add any JARRETT inhibitor or ARB. 4.Iron deficiency anemia, chronic kidney disease. Patient on IV iron. 5.Hypertension, controlled, not optimal. I am going to go ahead and increase her nifedipine to 60, and we will follow up. 6.Diabetes as by primary. HORACIO/CHANCEL Voice ID: [id number] Report ID: [id number]
--- NOTE | 2020-02-17 16:30 | P.PN ---
Subjective Date of Service: 02/17/20 Chief Complaint: Intractable vomiting Subjective: Improving (Still with some nausea) Physical Examination - Vital Signs Temperature: 98.1 F Blood Pressure: 149/77 Pulse: 80 Respirations: 18 Pulse Ox (%): 92 - Physical Exam General: Alert, In no apparent distress, Other (Patient appears depressed) Neck: Supple Respiratory: Clear to auscultation bilaterally, Normal air movement Cardiovascular: Normal pulses, Regular rate/rhythm Gastrointestinal: Other (Less pain to the epigastric region) Neurological: Normal speech, Normal strength at 5/5 x4 extr, Normal tone - Studies Medications List Reviewed: Yes Assessment & Plan Discharge Plan: Home Plan to discharge in: 24 Hours Physician Review Additional Text: Impression: Intractable nausea and vomiting likely secondary to diabetic gastroparesis Diabetes mellitus type 2 Chronic renal disease stage II Chronic bilateral pleural effusion Hypertension UTI-Klebsiella Plan: Encourage ambulation. Continue with Reglan and E-Mycin. Case discussed with nephrology. Anticipate possible discharge tomorrow on full liquid diet. Patient needs to see GI as an outpatient for further intervention. Nephrology to continue to adjust hypertensive medication. Will have physical therapy assess ambulation. Anticipate improvement over the next 24 hr. Will plan for discharge tomorrow. Time Spent Managing Pts Care (In Minutes): 55
[2020-02-18] MEDS: ONDANSETRON 4 MG/2 ML VIAL IV PRN ×4 (02:20→21:39)
[2020-02-18] MEDS: HYDROMORPHONE HCL 0.5 MG/0.5 ML INJ IV PRN ×5 (02:27→21:40)
[2020-02-18] MEDS: HYDRALAZINE HCL 20 MG/ML VIAL IV PRN ×3 (05:02→17:31)
[2020-02-18 05:09] LABS: Albumin 2.5 g/dL (3.4-5.0); Phosphorus 3.6 mg/dL (2.5-4.9); Potassium 3.6 mmol/L (3.5-5.1)
[2020-02-18] MEDS: D5 0.45 NS 1,000 ML IV SCH ×2 (07:20)
[2020-02-18] MEDS: METOCLOPRAMIDE 5 MG TAB PO SCH ×4 (07:30→21:40)
[2020-02-18] MEDS: SUCRALFATE 1 GM TABLET PO SCH ×4 (07:30→21:39)
[2020-02-18] MEDS: PANTOPRAZOLE 40 MG INJ IVP SCH ×2 (07:59→21:39)
[2020-02-18] MEDS: CEFTRIAXONE/SWI 1gm 1 GM/10 ML SYR IV SCH (08:00)
[2020-02-18] MEDS: SOD FERRIC GLUC COMPLX/SUCROSE 125 MG in NA CHLORIDE 0.9% 100 ML IV SCH (08:00)
[2020-02-18] MEDS: INSULIN -REGULAR HUMAN 50 UNIT/0.5 ML ML SQ SCH ×4 (08:01→21:00)
[2020-02-18 08:36] LABS: Absolute Lymphocytes (CBC) 0.6 K/uL (0.7-4.9); Basophils % 0.7 % (0-1.3); Lymphocytes % 6.6 % (15.3-44.8); MPV 9.8 fL (7.6-11.3); RBC Red Blood Cell Count 3.26 M/uL (3.86-4.86)
--- NOTE | 2020-02-18 08:56 | P.PN ---
Subjective Date of Service: 02/18/20 Primary Care Provider: Dr. Paul Chief Complaint: Intractable vomiting Subjective: Other (Still with nausea and vomiting. Slightly worse this morning.) Physical Examination - Vital Signs Temperature: 97.9 F Blood Pressure: 156/79 Pulse: 86 Respirations: 18 Pulse Ox (%): 95 - Physical Exam General: Alert, Cooperative, Other (Nausea this morning) HEENT: Atraumatic Neck: Supple Respiratory: Clear to auscultation bilaterally, Normal air movement Cardiovascular: Normal pulses, Regular rate/rhythm Gastrointestinal: Other (Mild epigastric pain, nausea noted.) Integumentary: No erythema, No warmth, No cyanosis Neurological: Normal speech, Normal strength at 5/5 x4 extr, Normal tone, Abnormal affect (Some anxiety noted) - Studies Medications List Reviewed: Yes Assessment & Plan Discharge Plan: Home Plan to discharge in: 48 Hours Physician Review Additional Text: Impression: Intractable nausea and vomiting likely secondary to diabetic gastroparesis Diabetes mellitus type 2 Acute on chronic renal disease stage II with hyponatremia likely from dehydration Chronic bilateral pleural effusion Hypertension UTI-Klebsiella Anemia of chronic disease Plan: Intractable nausea and vomiting likely secondary to diabetic gastroparesis: Patient continues to have increased nausea and vomiting. Will keep the patient NPO at this time. Will continue IV fluids. Will obtain upper GI series with small-bowel follow-through to further evaluate. Will discuss with her GI specialist to consider EGD if GI series unremarkable. Will need to rule out obstruction, inflammation, esophagitis/gastritis. Continue PPI. Will continue to reassess. Encourage ambulation. Encourage incentive spirometer. Will discuss further with nephrology and GI. Diabetes mellitus type 2: Continue Accu-Cheks and sliding scale. Acute on Chronic renal disease stage II with hyponatremia likely dehydration: Continue IV fluids. Chronic bilateral pleural effusion: Will need to monitor this closely. Especially with patient getting IV fluids. Hypertension: Continue medication UTI-Klebsiella: Patient has received 7 days of treatment. Will discontinue and recheck urine. Anemia of chronic disease: Overall stable. Will monitor closely. Time Spent Managing Pts Care (In Minutes): 55
[2020-02-18] MEDS: DRISDOL (VITAMIN D=ERGOCALCIFEROL) 50000 UNIT CAP PO SCH (09:00)
[2020-02-18] MEDS ORDERED: D5 0.9 NS 1,000 ML IV SCH (09:00)
[2020-02-18] MEDS: NIFEDIPINE XL 60 MG TABLET PO SCH (09:00)
[2020-02-18] MEDS: HYDRALAZINE HCL 25 MG TABLET PO SCH ×3 (09:00→21:39)
[2020-02-18] MEDS: ERYTHROMYCIN 250 MG PO SCH ×2 (09:00→12:57)
[2020-02-18] MEDS: carvediloL 25 MG TAB PO SCH ×2 (09:00→21:39)
[2020-02-18] MEDS ORDERED: FUROSEMIDE 40 MG/4 ML VIAL IV ONE (11:28)
--- NOTE | 2020-02-18 12:04 | RAD REPORT ---
EXAM DESCRIPTION: RAD - Chest Single View - 02/18/2020 11:25 am CLINICAL HISTORY: COPD Chest pain. COMPARISON: Chest Single View dated 02/12/2020; Chest Single View dated 02/10/2020; Chest Pa And Lat ( 2 Views) dated 01/17/2020; Abdomen Acute Series dated 10/30/2019 FINDINGS: Portable technique limits examination quality. Small bilateral pleural effusions are noted with atelectasis in both lung bases. The heart is mildly prominent in size. No displaced fractures.
--- NOTE | 2020-02-18 12:05 | RAD REPORT ---
EXAM DESCRIPTION: RAD - Abdomen 1 View (KUB) - 02/18/2020 11:26 am CLINICAL HISTORY: R/O SBO, N/V , GASTROPARESIS Pain COMPARISON: No comparisons FINDINGS: The bowel gas pattern is non-obstructive. No evidence of free air or pneumatosis. Contrast is present in the colon. Cholecystectomy clips seen. No pathologic calcifications evident. IMPRESSION: No finding to indicate small-bowel obstruction.
--- NOTE | 2020-02-18 13:14 | PN ---
Date of Progress Note: 02/18/2020 History Of Present Illness: The patient was admitted with anasarca, acute kidney injury. Kidney fun ction continues to decline. Physical Examination: Vital Signs: When I saw the patient, blood pressure 156/79, pulse of 86, afebrile. Patient voiding 400 on the last 24 hours. Chest: Decreased entry, bilateral base. Heart: S1, S2. Regular. Abdomen: Soft, nontender. Dullness on the suprapubic area. Extremities: Trace edema. Neurologic: Alert. No focal. No tremor. Laboratory Data: WBC 9.7, H and H 8.7/27, and platelets 269. Sodium 129, potassium 3.6, bicarb 18, BUN 25, creatinine 4.3. Calcium 8.1, phosphorus 3.6, albumin 2.5. Current Medications: The patient on include: 1.IV fluid. 2.IV iron. 3.Carvedilol 25 b.i.d. 4.Hydralazine 50 t.i.d. 5.Nifedipine 60. Assessment And Plan: 1.Acute kidney injury, unknown etiology. Obstruction has been ruled out. Patient has been on IV fl uid. Kidney function continue to decline and start developing hyponatremia. I am going to go ahead and discontinue IV fluid. I am going to go ahead and send for full workup again including serology a nd we will place the Carrion giving that postvoid around 80. 2.I had long discussion with the patient regarding possible if kidney function did not improve, may need renal replacement therapy. The patient currently refused that idea. We will continue to monito r. 3.I am going to order chest x-ray to evaluate her fluid status. 4.Hyponatremia secondary to renal failure. I am going to give the patient single dose of Lasix and we will follow up. 5.Hypertension, uncontrolled. Keep holding JARRETT inhibitor. We will continue current treatment and w e will give Lasix to evaluate and we will follow up the blood pressure. 6.Anasarca secondary to renal failure. We will diurese the patient. 7.Anemia secondary to chronic kidney disease, iron-deficiency anemia. Continue current treatment. 8.Gastroparesis, still symptomatic as by primary. 9.Diabetes as by primary. HORACIO/NATANAEL Voice ID: [id number] Report ID: [id number]
[2020-02-19] MEDS: HYDROMORPHONE HCL 0.5 MG/0.5 ML INJ IV PRN ×2 (01:59→05:29)
[2020-02-19] MEDS: HYDRALAZINE HCL 20 MG/ML VIAL IV PRN (02:04)
[2020-02-19] MEDS: ONDANSETRON 4 MG/2 ML VIAL IV PRN (05:30)
[2020-02-19 07:00] LABS: Absolute Lymphocytes (CBC) 0.5 K/uL (0.7-4.9); Basophils % 0.6 % (0-1.3); Lymphocytes % 4.9 % (15.3-44.8); MPV 8.8 fL (7.6-11.3)
[2020-02-19 07:16] LABS: Albumin 2.4 g/dL (3.4-5.0); Magnesium 1.7 mg/dL (1.8-2.4); Phosphorus 4.3 mg/dL (2.5-4.9); Potassium 3.5 mmol/L (3.5-5.1); Uric Acid 6.6 mg/dL (2.6-6.0)
[2020-02-19] MEDS: SUCRALFATE 1 GM TABLET PO SCH ×5 (07:30→19:53)
[2020-02-19] MEDS: METOCLOPRAMIDE 5 MG TAB PO SCH ×5 (07:30→19:53)
[2020-02-19] MEDS ORDERED: MAGNESIUM SULFATE 1 gm IVPB 1 GM/100 ML BAG IV ONE (07:49)
[2020-02-19] MEDS: carvediloL 25 MG TAB PO SCH ×3 (09:00→22:44)
[2020-02-19] MEDS: SOD FERRIC GLUC COMPLX/SUCROSE 125 MG in NA CHLORIDE 0.9% 100 ML IV SCH (09:00)
[2020-02-19] MEDS: HYDRALAZINE HCL 25 MG TABLET PO SCH ×3 (09:00→19:53)
[2020-02-19] MEDS: NIFEDIPINE XL 60 MG TABLET PO SCH ×2 (09:00→13:45)
[2020-02-19 09:05] LABS: Anisocytosis 1+; Blood Morphology Comment NOTED (NOT SEEN); Elliptocytes 1+; Platelet Estimate ADEQ; Poikilocytosis 1+; Urine White Blood Cell Casts OK
[2020-02-19] MEDS: INSULIN -REGULAR HUMAN 50 UNIT/0.5 ML ML SQ SCH ×4 (10:05→19:54)
[2020-02-19] MEDS: PANTOPRAZOLE 40 MG INJ IVP SCH ×2 (10:05→21:00)
[2020-02-19 10:10] LABS: Rheumatoid Factor NEG (NEG)
--- NOTE | 2020-02-19 11:36 | P.PN ---
Subjective Date of Service: 02/19/20 Primary Care Provider: Dr. Paul Chief Complaint: Intractable vomiting Subjective Pt with CKDIIIb/IV , DM , and HTN admitted for intractable nausea and vomiting pt with frequent ER visits for similar reason , cr 2.8 on admission, improved on IVF , ,now trending up , BP dropped after starting Nifedipine, r up to 3.1 today still have nausea Cr trending up IVF stopped yesterday, Carrion placed no retention, CXR with samll effusion , recived 1 dose of lasix will give a 2n dose of lasix serology w/u in the past was negative, will send again I discussed with Pt that she will need to start HD if no improvement in RFT, no indication for urgent renal replacement therapy at this time if Cr cont to trend up by tomorrow , then will consult surgery for catheter placement an start HD Physical exam general: AAOX3, in mild distress, naseous Neck; Supple, No elevated JVD hear: RRR, normal S1,2 no murmur or rub Chest: CTAB, no rlaes or wheezes Abdomen: Soft , Nt Extremities no edema GUS on CKD IIIb/IV reason unclear proteinuric due to DM and HTN nephrosclerosis serology W/U in the past including GABRIELLE, ANCA, C3, C4, Hep panel and HIV all negative avoid NSAID and contrast will send for serology w/u again I discussed with Pt that she will need to start HD if no improvement in RFT, no indication for urgent renal replacement therapy at this time if Cr cont to trend up by tomorrow , then will consult surgery for catheter pl acement an start HD IDDM as per primary team Acute on chronic anemia PPI cont IV iron epogen X1 transfuse to keep Hb>7.0 HTN cont current meds for now recurrent Nausea and vomiting likely due to gastroparesis Cont metolcoperamide and zofran air in the bladder cont abx urology evaluation as an OP total time spent 35 minutes Physical Examination - Vital Signs Temperature: 98.1 F Blood Pressure: 174/86 Pulse: 89 Respirations: 17 Pulse Ox (%): 97 - Studies Medications List Reviewed: Yes Assessment And Plan Physician Review: Patient Assessed, Agree with Above Assessment and Plan
--- NOTE | 2020-02-19 12:09 | RAD REPORT ---
EXAM DESCRIPTION: RAD - Abdomen 1 View (KUB) - 02/19/2020 11:48 am CLINICAL HISTORY: Abdomen pain. FINDINGS: The bowel gas pattern is unremarkable. Contrast from a recent CAT scan is present throughout the right colon which would obscure evaluation of the distal stomach/duodenum. Upper GI/small bowel series has been rescheduled for tomorrow
--- NOTE | 2020-02-19 15:01 | P.PN ---
Subjective Date of Service: 02/19/20 Primary Care Provider: Dr. Paul Chief Complaint: Intractable vomiting Subjective: Other (No more nausea noted. Still with mild pain.) Physical Examination - Vital Signs Temperature: 98.1 F Blood Pressure: 174/86 Pulse: 89 Respirations: 17 Pulse Ox (%): 97 - Physical Exam General: Alert, Cooperative HEENT: Atraumatic Neck: Supple Respiratory: Clear to auscultation bilaterally, Normal air movement Cardiovascular: Normal pulses, Regular rate/rhythm Gastrointestinal: Normal bowel sounds, Soft and benign, Tenderness (Mild pain to the epigastric region) Neurological: Normal speech, Normal strength at 5/5 x4 extr, Normal tone, Normal affect - Studies Medications List Reviewed: Yes Assessment & Plan Discharge Plan: Home Plan to discharge in: 72 Hours Physician Review Additional Text: Impression: Intractable nausea and vomiting likely secondary to diabetic gastroparesis Diabetes mellitus type 2 Acute on chronic renal disease stage II with hyponatremia likely from dehydration Chronic bilateral pleural effusion Hypertension UTI-Klebsiella Anemia of chronic disease Plan: Intractable nausea and vomiting likely secondary to diabetic gastroparesis: Will trial with clear liquids. Await small-bowel follow-through results. Case discussed with radiology. Case also discuss with GI yesterday. Continue PPI. Discontinue E-Mycin. Case also discussed with nephrology. Renal function has significant decline. Will need to consider dialysis if renal function is worse. Diabetes mellitus type 2: Continue Accu-Cheks and sliding scale. Acute on Chronic renal disease stage II with hyponatremia likely dehydration: may need dialysis. Continue with nephrology. Chronic bilateral pleural effusion: Will need to monitor this closely. Especially with patient getting IV fluids. Hypertension: Continue medication UTI-Klebsiella: Patient has received 7 days of treatment. Will discontinue and recheck urine. Anemia of chronic disease: Overall stable. Will monitor closely. Time Spent Managing Pts Care (In Minutes): 55
[2020-02-19] MEDS: PANTOPRAZOLE 40MG TABLET PO SCH (22:44)
[2020-02-20 06:35] LABS: Albumin 2.5 g/dL (3.4-5.0); Magnesium 1.9 mg/dL (1.8-2.4); Phosphorus 3.8 mg/dL (2.5-4.9); Potassium 3.4 mmol/L (3.5-5.1)
[2020-02-20 07:08] LABS: Absolute Lymphocytes (CBC) 0.7 K/uL (0.7-4.9); Hematocrit 26.9 % (36.0-45.0); Lymphocytes % 6.2 % (15.3-44.8); MPV 9.7 fL (7.6-11.3); RBC Red Blood Cell Count 3.25 M/uL (3.86-4.86)
[2020-02-20] MEDS: METOCLOPRAMIDE 5 MG TAB PO SCH ×4 (07:30→21:43)
[2020-02-20] MEDS: SUCRALFATE 1 GM TABLET PO SCH ×4 (07:30→21:42)
[2020-02-20] MEDS: INSULIN -REGULAR HUMAN 50 UNIT/0.5 ML ML SQ SCH ×4 (07:30→21:00)
[2020-02-20] MEDS: PANTOPRAZOLE 40MG TABLET PO SCH ×2 (09:00→21:43)
--- NOTE | 2020-02-20 09:31 | P.PN ---
Subjective Date of Service: 02/20/20 Primary Care Provider: Dr. Paul Chief Complaint: Intractable vomiting Subjective: Other (Still with some nausea. Pain stable. No IV access noted.) Physical Examination - Vital Signs Temperature: 98.8 F Blood Pressure: 139/67 Pulse: 89 Respirations: 16 Pulse Ox (%): 98 - Physical Exam General: Alert, Cooperative HEENT: Atraumatic Neck: Supple Respiratory: Clear to auscultation bilaterally, Normal air movement Cardiovascular: Normal pulses, Regular rate/rhythm Gastrointestinal: Normal bowel sounds, Tenderness (Mild abdominal pain epigastric region) Integumentary: No erythema, No warmth, No cyanosis Neurological: Normal speech, Normal strength at 5/5 x4 extr, Normal tone - Studies Medications List Reviewed: Yes Assessment & Plan Discharge Plan: Home Plan to discharge in: Greater than 2 days Physician Review Additional Text: Impression: Intractable nausea and vomiting likely secondary to diabetic gastroparesis Diabetes mellitus type 2 Acute on chronic renal disease stage II with hyponatremia likely from dehydration Chronic bilateral pleural effusion Hypertension UTI-Klebsiella, treated Anemia of chronic disease Plan: Intractable nausea and vomiting likely secondary to diabetic gastroparesis: Patient lost IV access. Case discussed at length with nephrology. Will obtain PICC line to provide IV access and for medication. Case discussed with radiology yesterday. They were not able to follow through with GI series. This will be finalize today. Also discuss the possibility of dialysis. Will continue to hold and monitor closely. If the patient requires dialysis then patient may require dialysis catheter placement. This will likely occur on Saturday. Will monitor closely. Continue medication. Will change medication to oral if required. Diabetes mellitus type 2: Continue Accu-Cheks and sliding scale. Acute on Chronic renal disease stage II with hyponatremia likely dehydration: Patient may require dialysis. Continue to monitor closely. PICC line will be ordered. Will need to consider dialysis catheter likely in the next 2-4 days, likely Saturday if renal function remains abnormal. Patient is undocumented and unfunded. This will make it difficult in the future for her to get dialysis. Will discuss with family welfare social work professor in nephrology Chronic bilateral pleural effusion: Will monitor closely Hypertension: Continue medication UTI-Klebsiella, treated: Patient has received 7 days of treatment. Will discontinue and recheck urine. Anemia of chronic disease: Overall stable. Will monitor closely. Time Spent Managing Pts Care (In Minutes): 55
[2020-02-20] MEDS: SOD FERRIC GLUC COMPLX/SUCROSE 125 MG in NA CHLORIDE 0.9% 100 ML IV SCH (09:35)
[2020-02-20] MEDS: NIFEDIPINE XL 60 MG TABLET PO SCH (09:36)
[2020-02-20] MEDS: HYDRALAZINE HCL 25 MG TABLET PO SCH ×3 (09:36→21:43)
[2020-02-20] MEDS: carvediloL 25 MG TAB PO SCH ×2 (09:37→21:43)
[2020-02-20] MEDS: ACETAMINOPHEN 325 MG TABLET PO PRN (09:42)
--- NOTE | 2020-02-20 16:45 | RAD REPORT ---
EXAM DESCRIPTION: RAD - Upper GI W/ Sm Bowel - 02/20/2020 3:59 pm CLINICAL HISTORY: Gastroparesis/abdominal pain COMPARISON: None FINDINGS: No gastroesophageal reflux The stomach and duodenum appear unremarkable. Gastric emptying appears to be within normal limits. Contrast enters the colon by approximately 2 hours. Mucosal folds of the small bowel appear normal. No permanent filling defects, obstructing or constric ting lesions Fluoroscopy time 0. Zero fluoroscopic spot images obtained IMPRESSION: Unremarkable exam
[2020-02-20] MEDS ORDERED: HYDROMORPHONE HCL 0.5 MG/0.5 ML INJ IV ONE (23:08)
[2020-02-20] MEDS: ONDANSETRON 4 MG/2 ML VIAL IV PRN (23:38)
[2020-02-21 06:08] LABS: Albumin 2.4 g/dL (3.4-5.0); Magnesium 1.9 mg/dL (1.8-2.4); Phosphorus 3.9 mg/dL (2.5-4.9); Potassium 3.3 mmol/L (3.5-5.1)
[2020-02-21 06:19] LABS: Absolute Lymphocytes (CBC) 0.7 K/uL (0.7-4.9); Basophils % 0.9 % (0-1.3); Hematocrit 26.2 % (36.0-45.0); Lymphocytes % 10.3 % (15.3-44.8); MPV 9.2 fL (7.6-11.3); RBC Red Blood Cell Count 3.17 M/uL (3.86-4.86)
[2020-02-21] MEDS: HYDROCODONE/APAP 7.5/325 MG TAB PO PRN ×2 (07:29→16:49)
[2020-02-21] MEDS: ONDANSETRON 4 MG/2 ML VIAL IV PRN (07:29)
[2020-02-21] MEDS: INSULIN -REGULAR HUMAN 50 UNIT/0.5 ML ML SQ SCH ×5 (07:30→21:06)
[2020-02-21] MEDS: SUCRALFATE 1 GM TABLET PO SCH ×4 (09:30→21:05)
[2020-02-21] MEDS: carvediloL 25 MG TAB PO SCH ×2 (09:30→21:05)
[2020-02-21] MEDS: NIFEDIPINE XL 60 MG TABLET PO SCH (09:31)
[2020-02-21] MEDS: METOCLOPRAMIDE 5 MG TAB PO SCH ×4 (09:31→21:06)
[2020-02-21] MEDS: PANTOPRAZOLE 40MG TABLET PO SCH ×2 (09:31→21:06)
[2020-02-21] MEDS: HYDRALAZINE HCL 25 MG TABLET PO SCH ×3 (09:31→21:06)
[2020-02-21] MEDS: SOD FERRIC GLUC COMPLX/SUCROSE 125 MG in NA CHLORIDE 0.9% 100 ML IV SCH (09:32)
--- NOTE | 2020-02-21 13:44 | P.PN ---
Subjective Date of Service: 02/21/20 Primary Care Provider: Dr. Paul Chief Complaint: Intractable vomiting Subjective: Improving, Doing well Physical Examination - Vital Signs Temperature: 97.8 F Blood Pressure: 153/75 Pulse: 76 Respirations: 18 Pulse Ox (%): 95 - Physical Exam General: Alert, Cooperative HEENT: Atraumatic Neck: Supple Respiratory: Clear to auscultation bilaterally, Normal air movement Cardiovascular: Normal pulses, Regular rate/rhythm Gastrointestinal: Normal bowel sounds, Non-distended, No tenderness, No masses, No rebound, No guarding Neurological: Normal speech, Normal strength at 5/5 x4 extr, Normal tone, Normal affect - Studies Medications List Reviewed: Yes Assessment & Plan Discharge Plan: Home Plan to discharge in: 24 Hours Physician Review Additional Text: Impression: Intractable nausea and vomiting likely secondary to diabetic gastroparesis Diabetes mellitus type 2 Acute on chronic renal disease stage II with hyponatremia likely from dehydration Chronic bilateral pleural effusion Hypertension UTI-Klebsiella, treated Anemia of chronic disease Plan: Intractable nausea and vomiting likely secondary to diabetic gastroparesis: Patient doing well. Continue with advancement of diet. Possible discharge within the next 24 hr. Will discuss further with nephrology. GI series unremarkable. Diabetes mellitus type 2: Continue Accu-Cheks and sliding scale. Acute on Chronic renal disease stage II with hyponatremia likely dehydration: Renal function stable. Likely no need for dialysis. Will discuss further with nephrology. Patient is undocumented and unfunded. This will make it difficu lt in the future for her to get dialysis. Will discuss with social services designee in nephrology Chronic bilateral pleural effusion: Will monitor closely Hypertension: Continue medication UTI-Klebsiella, treated: Patient has received 7 days of treatment. Will discontinue and recheck urine. Anemia of chronic disease: Overall stable. Will monitor closely. Time Spent Managing Pts Care (In Minutes): 55
[2020-02-21] MEDS ORDERED: POTASSIUM 25 MEQ EFFERV TAB PO ONE (20:16)
[2020-02-21] MEDS: SODIUM BICARB 325 MG TAB PO SCH (21:05)
--- NOTE | 2020-02-21 21:42 | PN ---
Date of Progress Note: 02/21/2020 Chief Complaint: Acute on chronic kidney injury. History Of Present Illness: Renal function is somewhat trending down. Patient was admitted for intractable nausea, vomiting, likely secondary to diabetic gastroparesis. Developed acute on chronic kidney injury with hyponatremia secondary to fluid shift and acute kidney injury. Patient is treated with antibiotics for urinary tract infection related to Klebsiella. Review of Systems: Denies fever, chills. Physical Examination: Lungs: Clear to auscultation bilaterally. Heart: S1, S2. Abdomen: Soft, benign. Extremities: No edema. Laboratory Workup: Hemoglobin 8.5, WBC 7.1, platelet count 255,000. Lab work showed sodium 133, potassium 3.4, chloride 103, CO2 16, BUN 27, creatinine 4.49, calcium 8.0, phosphorus 3.8, magnesium 1.9. Impression And Plan: Acute on chronic kidney injury complicated by metabolic acidosis related to acute kidney injury associated with hypokalemia and hyponatremia. Plan is to continue IV fluids as needed and monitor electrolytes and renal panel. Patient may need sodium bicarbonate tablet. At this point, patient has nonoliguric urine output. There is no indication to start dialysis. Patient will have renal function evaluated and if there is no improvement, patient may need dialysis in near future. ROSEANNA/NATANAEL Voice ID: [id number] Report ID: [id number] AUNG
--- NOTE | 2020-02-21 22:54 | PN ---
Date of Progress Note: 02/21/2020 Chief Complaint: Acute on chronic kidney injury, nonoliguric with prerenal azotemia, nonoliguric ATN. Patient was found to have hyponatremia, hypokalemia, there is metabolic acidosis present. Patient will start sodium bicarbonate tablet and she will receive potassium replacement as needed. Today, blood work showed sodium is 134, potassium 3.3, chloride 104, CO2 is 18, BUN 26, creatinine 4.11. Review of Systems: Denies new complaints. Physical Examination: Lungs: Clear to auscultation bilaterally. Heart: S1, S2. Abdomen: Soft, benign. Extremities: No edema. Impression And Plan: 1. Acute on chronic kidney injury. There is no indication to start dialysis. Patient will require some electrolytes replacement and to monitor renal function. Patient has chronic bilateral pleural effusion management per primary team. 2. Urinary tract infection with Klebsiella, treated. 3. Hypertension. Continue blood pressure medication. 4. Intractable nausea, vomiting likely secondary to diabetic gastroparesis, management per primary team. ROSEANNA/NATANAEL Voice ID: [id number] Report ID: [id number] AUNG
[2020-02-22 03:03] LABS: HBsAG Nonreactive (Nonreactive)
[2020-02-22 04:30] LABS: Albumin 2.2 g/dL (3.4-5.0); Phosphorus 3.2 mg/dL (2.5-4.9); Potassium 3.8 mmol/L (3.5-5.1)
[2020-02-22] MEDS: INSULIN -REGULAR HUMAN 50 UNIT/0.5 ML ML SQ SCH ×2 (07:30→11:40)
[2020-02-22] MEDS: SUCRALFATE 1 GM TABLET PO SCH ×2 (08:00→10:36)
[2020-02-22] MEDS: METOCLOPRAMIDE 5 MG TAB PO SCH ×2 (08:00→10:36)
[2020-02-22 08:54] VITALS: O2SAT 97
[2020-02-22] MEDS: carvediloL 25 MG TAB PO SCH (08:56)
[2020-02-22] MEDS: SODIUM BICARB 325 MG TAB PO SCH (08:56)
[2020-02-22] MEDS: NIFEDIPINE XL 60 MG TABLET PO SCH (08:57)
[2020-02-22] MEDS: HYDRALAZINE HCL 25 MG TABLET PO SCH (08:57)
[2020-02-22] MEDS: PANTOPRAZOLE 40MG TABLET PO SCH (08:57)
--- NOTE | 2020-02-22 09:05 | P.DS ---
Admission Date: 02/11/20 Discharge Date: 02/22/20 Primary Care Provider: Dr. Paul Disposition: ROUTINE DISCHARGE Discharge Condition: GOOD Reason for Admission: Intractable vomiting Consultations: Nephrology-Dr. Valle Procedures: Ct scan: FINDINGS: There is a trace left and a small right pleural effusion. There is mild bibasilar atelectasis. There is a trace pericardial effusion. Abdomen: The liver is normal in appearance. There is no biliary dilatation. Cholecystectomy was performed. There is mild right abdominal ascites. The pancreas and spleen are normal in appearance. Adrenal glands are normal. There are several minimal punctate bilateral renal calculi without hydronephrosis. Abdominal aorta is normal in course and caliber without aneurysm. There is no free air. There is no retroperitoneal adenopathy.There is mild diffuse body wall anasarca. Pelvis: There is no bowel obstruction. There is moderate amount of air in the urinary bladder. There is small amount of free pelvic fluid. Uterus is normal in size. Appendix is normal. Skeleton: There are no acute osseous findings. No suspicious bony lesions. IMPRESSION: Mild fluid overloaded state with pleural effusions, anasarca and ascites. Air within the urinary bladder. GI Series: FINDINGS: No gastroesophageal reflux The stomach and duodenum appear unremarkable. Gastric emptying appears to be within normal limits. Contrast enters the colon by approximately 2 hours. Mucosal folds of the small bowel appear normal. No permanent filling defects, obstructing or constricting lesions Fluoroscopy time 0. Zero fluoroscopic spot images obtained IMPRESSION: Unremarkable exam Medical problem List: Intractable nausea and vomiting likely secondary to diabetic gastroparesis Diabetes mellitus type 2 Insulin-dependent with hyperglycemia Acute on chronic renal disease stage II with hyponatremia likely from dehydration Chronic bilateral pleural effusion Hypertension UTI-Klebsiella, treated Anemia of chronic disease Brief History of Present Illness: 40-year-old female with multiple medical problems including diabetes, diabetic gastroparesis, chronic renal disease and chronic pleural effusions. Patient presented with recurrent nausea and vomiting. She has been hospitalized multiple times for this. The patient required hospitalization. Patient admitted for further evaluation and treatment. Hospital Course: Patient presented with intractable nausea and vomiting likely related to diabetic gastroparesis. Those likely some component of acute on chronic renal failure. During the course of her stay her condition slowly improved. CT scan unremarkable. GI series also unremarkable. Patient was eventually able to tolerate her diet. The patient was also evaluated by nephrology. There was some concern that the patient would require dialysis. This was not required. At discharge patient will continue with Protonix 40 mg 1 pill twice daily and Carafate 1 g 3 times a day. Patient may continue with pro biotics-lactobacillus 1 pill twice daily. The patient will be provided Reglan 5 mg 3 times a day as needed for nausea. Diabetic control is important. This was stressed in detail to help with her gastroparesis. Patient has seen GI in the past. Recommend follow up with GI in the near future to further evaluate. Patient may require higher level of care for possible GI intervention with gastric electrical stimulation device. As for her acute on chronic renal disease stage II. Patient was hyponatremic related to dehydration. Patient was given IV fluids. This was adjusted closely with Nephrology as the patient has chronic bilateral pleural effusions. Fluids eventually were discontinued. Her renal function was monitored closely. No need for dialysis was required. The patient may require future dialysis in the future. The patient is undocumented and is working to get paperwork filled to the state to help with immigration. She will need to continue with this as an outpatient. Recommend follow up with nephrology in 1-2 weeks to follow up this hospitalization. Recommend to recheck lab-BMP in 1-2 weeks as well. Will recommend for the patient to establish care with a local PCP to continue her care. Patient will need to continue with a 1500 cc per day fluid restriction and low-salt diet. She is to monitor her weight daily. If her weight increases by more than 5 lb she is to contact nephrology for further recommendation. Patient with chronic bilateral pleural effusions. This is likely related to her renal disease. This has remained stable. No requirement of oxygen at discharge. Patient may need to limit activities. As recommended she will continue with a 1500 cc per day fluid restriction and low-salt diet. She is to monitor her weight daily. Patient with hypertension. This has remained stable. At discharge she will continue with her medications-carvedilol 25 mg 1 pill twice daily, hydralazine 50 mg 1 pill 3 times a day and Procardia XL 60 mg daily. Recommend to maintain blood pressure less 150/80. Further adjustment can be done by her PCP or nephrology. During the course of her stay the patient was found to have a UTI. Urine culture was positive for Klebsiella. She was treated for 7 days. No further intervention required. Patient with anemia of chronic disease. This has remained stable. At discharge she will continue with her current medications. Recommend recheck lab-CBC in 2- 4 weeks. Patient with diabetes mellitus type 2 insulin dependent with hyperglycemia. Previous A1c abnormal. Strict diabetic control is required to help with her gastroparesis. At discharge she will continue with insulin NPH 10 units subcu twice daily. She is to monitor her blood sugar at least twice daily. Recommend to maintain her blood sugar less than 140 fasting and less than 200 after meals. She may need to increase her NPH insulin if blood sugars remain above 200. Recommend follow up with her PCP to further adjust and get her diabetes better controlled. Vital Signs/Physical Exam: Temp Pulse Resp BP Pulse Ox 98.5 F 84 15 131/64 91 02/22/20 04:00 02/22/20 04:00 02/22/20 04:00 02/22/20 04:00 02/22/20 04:00 General: Alert, In no apparent distress, Oriented x3, Cooperative HEENT: Atraumatic Neck: Supple Respiratory: Clear to auscultation bilaterally, Normal air movement Cardiovascular: Normal pulses, Regular rate/rhythm Gastrointestinal: Normal bowel sounds, Soft and benign, Non-distended, No tenderness, No masses, No rebound, No guarding Musculoskeletal: No contractures, No erythema, No tenderness, No warmth Neurological: Normal speech, Normal strength at 5/5 x4 extr, Normal tone, Normal affect Laboratory Data at Discharge: WBC 7.1 K/uL (4.3-10.9) D 02/21/20 05:31 Hgb 8.5 g/dL (12.0-15.0) L 02/21/20 05:31 Hct 26.2 % (36.0-45.0) L 02/21/20 05:31 Plt Count 255 K/uL (152-406) 02/21/20 05:31 PT 12.8 SECONDS (9.5-12.5) H 02/11/20 01:30 INR 1.09 02/11/20 01:30 Sodium 136 mmol/L (136-145) 02/22/20 03:36 Potassium 3.8 mmol/L (3.5-5.1) 02/22/20 03:36 BUN 25 mg/dL (7-18) H 02/22/20 03:36 Creatinine 3.57 mg/dL (0.55-1.3) H 02/22/20 03:36 Glucose 122 mg/dL (74-106) H 02/22/20 03:36 Uric Acid 6.6 mg/dL (2.6-6.0) H 02/19/20 06:43 Phosphorus 3.2 mg/dL (2.5-4.9) 02/22/20 03:36 Magnesium 1.9 mg/dL (1.8-2.4) 02/21/20 05:31 Total Bilirubin 0.2 mg/dL (0.2-1.0) 02/12/20 05:29 AST 10 U/L (15-37) L 02/12/20 05:29 ALT 22 U/L (12-78) 02/12/20 05:29 Alkaline Phosphatase 61 U/L (45-117) 02/12/20 05:29 Lipase 31 U/L (73-393) L 02/11/20 01:30 Home Medications: Carvedilol [Coreg] 25 mg PO BID 12/25/19 Insulin NPH Human [Novolin N (Humulin N)*] 12 units SQ DAILY 12/25/19 Hydralazine HCl 50 mg PO TID #90 tablet 02/22/20 Insulin NPH Human [Novolin N (Humulin N)*] 10 units SQ BID #1 bottle 02/22/20 Lactobacillus Acidophilus [Acidophilus Lactobacilli] 1 each PO BID #60 capsule 02/22/20 Metoclopramide HCl [Reglan] 5 mg PO TID PRN #15 tablet 02/22/20 Na Bicarb Tab [Sodium Bicarb 325 MG Tab*] 650 mg PO BID #60 tab 02/22/20 Nifedipine Xl [Procardia XL*] 60 mg PO DAILY #30 tab 02/22/20 Pantoprazole [Protonix Tab*] 40 mg PO BIDAC #60 tab 02/22/20 Sucralfate [Carafate*] 1 tab PO ACHS #90 tab 02/22/20 Vitamin D [Drisdol*] 50,000 unit PO Q7D@0900 #4 cap 02/22/20 New Medications: Lactobacillus Acidophilus [Acidophilus Lactobacilli] 1 each PO BID #60 capsule Sucralfate [Carafate*] 1 tab PO ACHS #90 tab Vitamin D [Drisdol*] 50,000 unit PO Q7D@0900 #4 cap Hydralazine HCl 50 mg PO TID #90 tablet Insulin NPH Human [Novolin N (Humulin N)*] 10 units SQ BID #1 bottle Nifedipine Xl [Procardia XL*] 60 mg PO DAILY #30 tab Pantoprazole [Protonix Tab*] 40 mg PO BIDAC #60 tab Metoclopramide HCl [Reglan] 5 mg PO TID PRN #15 tablet PRN Reason: Nausea / Vomiting Na Bicarb Tab [Sodium Bicarb 325 MG Tab*] 650 mg PO BID #60 tab Patient Discharge Instructions: 1. Recommend follow up with her PCP in 1 week to follow up this hospitalization. 2. Patient presented with intractable nausea and vomiting likely related to diabetic gastroparesis. Those likely some component of acute on chronic renal failure. During the course of her stay her condition slowly improved. CT scan unremarkable. GI series also unremarkable. Patient was eventually able to tolerate her diet. The patient was also evaluated by nephrology. There was some concern that the patient would require dialysis. This was not required. At discharge patient will continue with Protonix 40 mg 1 pill twice daily and Carafate 1 g 3 times a day. Patient may continue with pro biotics-lactobacillus 1 pill twice daily. The patient will be provided Reglan 5 mg 3 times a day as needed for nausea. Diabetic control is important. This was stressed in detail to help with her gastroparesis. Patient has seen GI in the past. Recommend follow up with GI in the near future to further evaluate. Patient may require higher level of care for possible GI intervention with gastric electrical stimulation device. 3. As for her acute on chronic renal disease stage II. Patient was hyponatremic related to dehydration. Patient was given IV fluids. This was adjusted closely with Nephrology as the patient has chronic bilateral pleural effusions. Fluids eventually were discontinued. Her renal function was monitored closely. No need for dialysis was required. The patient may require future dialysis in the future. The patient is undocumented and is working to get paperwork filled to the state to help with immigration. She will need to continue with this as an outpatient. Recommend follow up with nephrology in 1-2 weeks to follow up this hospitalization. Recommend to recheck lab-BMP in 1-2 weeks as well. Will recommend for the patient to establish care with a local PCP to continue her care. Patient will need to continue with a 1500 cc per day fluid restriction and low-salt diet. She is to monitor her weight daily. If her weight increases by more than 5 lb she is to contact nephrology for further recommendation. 4. Patient with chronic bilateral pleural effusions. This is likely related to her renal disease. This has remained stable. No requirement of oxygen at discharge. Patient may need to limit activities. As recommended she will continue with a 1500 cc per day fluid restriction and low-salt diet. She is to monitor her weight daily. 5. Patient with hypertension. This has remained stable. At discharge she will continue with her medications-carvedilol 25 mg 1 pill twice daily, hydralazine 50 mg 1 pill 3 times a day and Procardia XL 60 mg daily. Recommend to maintain blood pressure less 150/80. Further adjustment can be done by her PCP or nephrology. 6. During the course of her stay the patient was found to have a UTI. Urine culture was positive for Klebsiella. She was treated for 7 days. No further intervention required. 7. Patient with anemia of chronic disease. This has remained stable. At discharge she will continue with her current medications. Recommend recheck lab-CBC in 2-4 weeks. 8. Patient with diabetes mellitus type 2 insulin dependent with hyperglycemia. Previous A1c abnormal. Strict diabetic control is required to help with her gastroparesis. At discharge she will continue with insulin NPH 10 units subcu twice daily. She is to monitor her blood sugar at least twice daily. Recommend to maintain her blood sugar less than 140 fasting and less than 200 after meals. She may need to increase her NPH insulin if blood sugars remain above 200. Recommend follow up with her PCP to further adjust and get her diabetes better controlled. Diet: ADA Activity: Ad shena Time spent managing pt's care (in minutes): 55
[2020-02-22 10:50] VITALS: TEMP 98.1
[2020-02-22 11:16] LABS: HIV AG/AB 4TH GEN Non-reactive (Non-reactive)
[2020-02-22] MEDS: HYDRALAZINE HCL 20 MG/ML VIAL IV PRN (11:39)
[2020-02-22 12:41] VITALS: BP 150/74
[2020-02-22 14:13] LABS: Hepatitis C Virus RNA (PCR)log <1.18 log IU/mL
--- NOTE | 2020-02-23 00:56 | PN ---
Date of Progress Note: 02/22/2020 Chief Complaint: Acute on chronic kidney injury. History Of Present Illness: Patient has chronic kidney disease stage 4. She developed prerenal azot emia. Today, she is feeling better. P.o. intake is improving. She was started on sodium bicarbonat e tablets to treat mild metabolic acidosis related to chronic kidney disease. Review of Systems: Denies new complaints. Physical Examination: Lungs: Clear to auscultation bilaterally. Heart: S1, S2. Abdomen: Soft, benign. Extremities: No edema. Assessment And Plan: 1.Acute kidney injury. Renal function has improved. Continue adequate p.o. fluid intake. Avoid ne phrotoxic medication. Monitor electrolytes. Urinary tract infection with Klebsiella treated. 2.Hypertension. Continue blood pressure medication. 3.History of diabetic gastroparesis. Patient was treated for nausea, vomiting with antiemetic medic ation. She is improving and tolerating p.o. intake. Patient will follow up outpatient with nephrolo gist. 4.Metabolic acidosis, bicarbonate level improved to 21. Continue to monitor electrolytes. Patient is scheduled to see paper cone machine operator outpatient. ROSEANNA/NATANAEL Voice ID: [id number] Report ID: [id number]
[2020-02-23 23:51] LABS: Albumin, (SPE) 2.8 g/dL (3.8-4.8); Alpha-1-Globulins 0.3 g/dL (0.2-0.3); Alpha-2-Globulins 0.6 g/dL (0.5-0.9); Gamma Globulins 0.6 g/dL (0.8-1.7); INTERPRETATION REPORT
== END 2020-02-22 13:20 | disposition home or self-care (01) | DRG 73 ==
LOC: ER 22:58 → ERHOLD 02-11 03:57 → OBSVTOIN 02-11 03:57 → INTOOBSV 02-11 03:57 → 2ND 02-11 04:31
PROVIDERS: ADMIT Internal Medicine; ATTEND Family Medicine
PROC: 30233N1 Transfusion of Nonautologous Red Blood Cells into Peripheral Vein, Percutaneous Approach (ICD-10-PCS; principal; 2020-02-16)
DX: E11.43 Type 2 diabetes mellitus with diabetic autonomic (poly)neuropathy (principal); J18.9 Pneumonia, unspecified organism; J81.1 Chronic pulmonary edema; I13.0 Hypertensive heart and chronic kidney disease with heart failure and stage 1 through stage 4 chronic kidney disease, or unspecified chronic kidney disease; I50.32 Chronic diastolic (congestive) heart failure; N17.9 Acute kidney failure, unspecified; N25.81 Secondary hyperparathyroidism of renal origin; N30.00 Acute cystitis without hematuria; E87.1 Hypo-osmolality and hyponatremia; E87.2 Acidosis; N18.4 Chronic kidney disease, stage 4 (severe); K31.84 Gastroparesis; E11.22 Type 2 diabetes mellitus with diabetic chronic kidney disease; E87.70 Fluid overload, unspecified; Z79.899 Other long term (current) drug therapy; Z79.4 Long term (current) use of insulin; Z90.49 Acquired absence of other specified parts of digestive tract; R79.89 Other specified abnormal findings of blood chemistry; D63.1 Anemia in chronic kidney disease; E78.5 Hyperlipidemia, unspecified; K21.9 Gastro-esophageal reflux disease without esophagitis; E55.9 Vitamin D deficiency, unspecified; K26.9 Duodenal ulcer, unspecified as acute or chronic, without hemorrhage or perforation; E86.0 Dehydration; B96.1 Klebsiella pneumoniae [K. pneumoniae] as the cause of diseases classified elsewhere; D63.8 Anemia in other chronic diseases classified elsewhere; E11.65 Type 2 diabetes mellitus with hyperglycemia
CPT/HCPCS: 36415; 36430; 71045; 74018; 74177; 74245; 80048; 80053; 80069; 80076; 81003; 81025; 82550; 82570; 82607; 82728; 82746; 82947; 83520; 83540; 83605; 83690; 83735; 83880; 84132; 84156; 84165; 84466; 84484; 84550; 85014; 85018; 85025; 85610; 86021; 86038; 86160; 86225; 86317; 86430; 86704; 86706; 86850; 86900; 86901; 87040; 87077; 87086; 87088; 87186; 87340; 87389; 87522; 93005; 96361; 96374; 96375; 97116; 97161; 99285; C9113; J0360; J0696; J1170; J1644; J1940; J2270; J2405; J2550; J2765; J2916; J3370; J3475; J7030; J7040; J7042; J7799; P9016; Q5105

== ENCOUNTER 2020-03-05 05:41 | Emergency (ER) | payer SELFPAY ==
--- OUTSIDE RECORDS SUMMARY | 2020-03-05 05:45 | XMS REPORT | Clinical Summary ---
:1980 Author Organization [facility] Address [address] [place] [address] Care Team Providers Name Role Phone Cathie Khan WHEEL PRESSER-C Primary Care Provider [phone] Allergies No Known Allergies Medications Medication Sig Dispensed Refills Start Date End Date Status amLODIPine Take 10 mg 0 Active (NORVASC) 10 mg by mouth tablet daily. carvediloL (COREG) Take 25 mg 0 Active 25 MG tablet by mouth 2 (two) times a day with meals. insulin NPH Inject 10 0 Active (HumuLIN-N) 100 Units under unit/mL injection the skin 2 (two) times a day before meals. ondansetron Take 4 mg by 0 Activ e (ZOFRAN) 4 MG mouth every tablet 8 (eight) hours as needed for nausea or vomiting. promethazine Take 25 mg 0 Active (PHENERGAN) 25 MG by mouth tablet every 6 (six) hours as needed for nausea or vomiting. furosemide (LASIX) Take 80 mg 0 Discontinued 80 mg tablet by mouth 0 (Stop T aking at daily. Discharge) metoclopramide Take 10 mg 0 Disc ontinued (REGLAN) 10 MG by mouth 2 0 (Sto p Taking at tablet (two) times Discharg e) a day. metoprolol tartrate Take 100 mg 0 01/11/20 2 Discontinued (LOPRESSOR) 100 mg by mouth 2 0 (Stop Taking at tablet (two) times Discharg e) a day. pantoprazole Take 40 mg 0 Discon tinued (PROTONIX) 40 MG EC by mouth 2 0 (Stop Taking at tablet (two) times Discharg e) a day. sucralfate Take 1 g by 0 Discont inued (CARAFATE) 1 gram mouth 4 0 (S top Taking at tablet (four) times Dischar ge) a day. metoclopramide Take 1 120 tablet 0 01/11/2020 Exp ired (REGLAN) 5 MG tablet (5 mg 0 tablet total) by mouth 4 (four) times a day before meals and nightly for 30 days. pantoprazole Take 1 30 tablet 0 01/12/2020 d (PROTONIX) 40 MG EC tablet (40 0 tablet mg total) by mouth daily for 30 days. Active Problems Problem Noted Date Epigastric abdominal pain 01/07/2020 Comments Yes Encounters Date Type Specialty Care Team Description Telephone Gastroenterology Jaxson, 0 HORACIO Lares Telephone Gastroenterology Jaxson, 0 HORACIO Lares Surgery Gastroenterology Jackson, ESOPHAGOGAS TRODUODENOSCOPY 0 Marni Hankins (EGD)W/BOTOX Anesthesia Gastroenterology Dolores, 0 Event MD Diane Alvarez Teri, NP [facility] General Internal [place], Gastropares is (Primary Dx); 0 - Encounter Medicine Esequiel Epigastric abdo ludy pain; DO Anderson Hypertension, unspecified type; 0 Mae, Acute renal keyonna lure, unspecified acute renal failure type (HCC) MD Mat Okefee Turab, MD Travel 0 after 03/05/2019 Social History Tobacco Use Types Packs/Day Years Used Date Never Smoker Smokeless Tobacco: Never Used Alcohol Use Drinks/Week oz/Week Comments Never Alcohol Habits Answer Date Recorded How often do you have a drink containing alcohol? Never 01/08/2020 How many drinks containing alcohol do you have on a typical Not asked day when you are drinking? How often do you have six or more drinks on one occasion? No t asked Comments Yes Sex Assigned at Date Recorded Not on file Job Start Date Occupation Industry Not on file Not on file Not on file Travel History Travel Start Travel End No recent travel history available. Last Filed Vital Signs Vital Sign Reading Time Taken Comments Blood Pressure 158/84 01/11/2020 10:57 AM CDT Pulse 90 01/11/2020 10:57 AM CDT Temperature 36.3 C (97.4 F) 01/11/2020 10:57 AM CDT Respiratory Rate 20 01/11/2020 10:57 AM CDT Oxygen Saturation 98% 01/11/2020 10:57 AM CDT Inhaled Oxygen Concentration - - Weight 59.4 kg (131 lb) 01/08/2020 7:22 AM CDT Height 157.5 cm (5' 2") 01/08/2020 7:22 AM CDT Body Mass Index 23.96 01/08/2020 7:22 AM CDT Plan of Treatment Health Maintenance Due Date Last Done Comments DIABETIC RETINAL EYE EXAM 1981 DIABETIC FOOT EXAM 1991 URINE MICROALBUMIN 1991 CERVICAL CANCER SCREENING 2002 INFLUENZA VACCINE 05/28/2020 Procedures Procedure Name Priority Date/Time Associated Comments Diagnosis POC GLUCOSE Routine 01/11/2020 Results for 12:27 PM CDT this procedure are in the results section. ESTIMATED GFR STAT 01/11/2020 Results for 11:08 AM CDT this procedure are in the results section. BASIC METABOLIC PANEL STAT 01/11/2020 Result s for 11:08 AM CDT this procedure are in the results section. HC COMPLETE BLD COUNT W/AUTO STAT 01/11/2020 Results for DIFF 10:28 AM CDT this procedure are in the results section. POC GLUCOSE Routine 01/11/2020 Results for 8:14 AM CDT this procedure are in the results section. POC GLUCOSE Routine 01/10/2020 Results for 9:03 PM CDT this procedure are in the results section. POC GLUCOSE Routine 01/10/2020 Results for 4:55 PM CDT this procedure are in the results section. POC GLUCOSE Routine 01/10/2020 Results for 12:03 PM CDT this procedure are in the results section. POC GLUCOSE Routine 01/10/2020 Results for 8:05 AM CDT this procedure are in the results section. ESTIMATED GFR Timed 01/10/2020 Results for 5:40 AM CDT this procedure are in the results section. BASIC METABOLIC PANEL Timed 01/10/2020 Result s for 5:40 AM CDT this procedure are in the results section. CBC WITH PLATELET AND Timed 01/10/2020 Result s for DIFFERENTIAL 5:40 AM CDT this procedure are in the results section. POC GLUCOSE Routine 01/09/2020 Results for 5:43 PM CDT this procedure are in the results section. POC GLUCOSE Routine 01/09/2020 Results for 12:25 PM CDT this procedure are in the results section. POC GLUCOSE Routine 01/09/2020 Results for 8:47 AM CDT this procedure are in the results section. ESTIMATED GFR Timed 01/09/2020 Results for 7:45 AM CDT this procedure are in the results section. BASIC METABOLIC PANEL Timed 01/09/2020 Result s for 7:45 AM CDT this procedure are in the results section. HC COMPLETE BLD COUNT W/AUTO Timed 01/09/2020 Results for DIFF 7:45 AM CDT this procedure are in the results section. POC GLUCOSE Routine 01/08/2020 Results for 9:19 PM CDT this procedure are in the results section. POC GLUCOSE Routine 01/08/2020 Results for 5:34 PM CDT this procedure are in the results section. POC GLUCOSE Routine 01/08/2020 Results for 11:25 AM CDT this procedure are in the results section. POC GLUCOSE Routine 01/08/2020 Results for 9:14 AM CDT this procedure are in the results section. POC GLUCOSE Routine 01/08/2020 Results for 8:32 AM CDT this procedure are in the results section. OR AN ELECTIVE ENDOTRACHEAL Routine 01/08/2020 Results for AIRWAY 8:17 AM CDT this procedure are in the results section. ESOPHAGOGASTRODUODENOSCOPY (EGD) 01/08/2020 Epigastr ic 7:57 AM CDT abdominal pain POC GLUCOSE Routine 01/08/2020 Results for 7:48 AM CDT this procedure are in the results section. ESTIMATED GFR Timed 01/08/2020 Results for 5:00 AM CDT this procedure are in the results section. BASIC METABOLIC PANEL Timed 01/08/2020 Result s for 5:00 AM CDT this procedure are in the results section. HC COMPLETE BLD COUNT W/AUTO Timed 01/08/2020 Results for DIFF 5:00 AM CDT this procedure are in the results section. POC GLUCOSE Routine 01/07/2020 Results for 9:20 PM CDT this procedure are in the results section. POC GLUCOSE Routine 01/07/2020 Results for 4:41 PM CDT this procedure are in the results section. POC GLUCOSE Routine 01/07/2020 Results for 1:39 PM CDT this procedure are in the results section. URINE CULTURE STAT 01/07/2020 Results for 1:33 PM CDT this procedure are in the results section. HEMOGLOBIN A1C Routine 01/07/2020 Results for 12:45 PM CDT this procedure are in the results section. FERRITIN LEVEL Routine 01/07/2020 Results for 12:45 PM CDT this procedure are in the results section. IRON LEVEL Routine 01/07/2020 Results for 12:45 PM CDT this procedure are in the results section. TOTAL IRON BINDING CAPACITY Routine 01/07/2020 Results for 12:45 PM CDT this procedure are in the results section. VITAMIN B12 LEVEL Routine 01/07/2020 Results fo r 12:45 PM CDT this procedure are in the results section. FOLATE LEVEL Routine 01/07/2020 Results for 12:45 PM CDT this procedure are in the results section. URINALYSIS SCREEN AND STAT 01/07/2020 Result s for MICROSCOPY, WITH REFLEX TO 12:45 PM CDT t his procedure CULTURE are in the results section. HCG QUALITATIVE, URINE SCREEN STAT 01/07/2020 Results for 12:20 PM CDT this procedure are in the results section. US RENAL Routine 01/07/2020 Results for 11:15 AM CDT this procedure are in the results section. POC GLUCOSE Routine 01/07/2020 Results for 9:20 AM CDT this procedure are in the results section. CT RENAL STONE PROTOCOL STAT 01/07/2020 Resu lts for 4:59 AM CDT this procedure are in the results section. ECG 12-LEAD STAT 01/07/2020 Results for 4:30 AM CDT this procedure are in the results section. HC COMPLETE BLD COUNT W/AUTO STAT 01/07/2020 Results for DIFF 3:48 AM CDT this procedure are in the results section. ESTIMATED GFR STAT 01/07/2020 Results for 3:39 AM CDT this procedure are in the results section. LIPASE LEVEL STAT 01/07/2020 Results for 3:39 AM CDT this procedure are in the results section. LACTIC ACID LEVEL, SEPSIS - NOW STAT 01/07/2020 Results for AND REPEAT 2X EVERY 3 HOURS 3:39 AM CDT this procedure are in the results section. MAGNESIUM LEVEL STAT 01/07/2020 Results for 3:39 AM CDT this procedure are in the results section. PHOSPHORUS LEVEL STAT 01/07/2020 Results for 3:39 AM CDT this procedure are in the results section. COMPREHENSIVE METABOLIC PANEL STAT 01/07/2020 Results for 3:39 AM CDT this procedure are in the results section. after 03/05/2019 Results POC glucose (01/11/2020 12:27 PM CDT)Only the most recent of19 resultswithin the time period is included. Pathologist Sig nature POC glucose 228 (H) 65 - 99 mg/dL [facility] Comment: HOSPITAL Proof Clerk Name: Minal Horn Device ID: [id number] Chartable: [facility] Notified RN Specimen Blood Performing Organization Address City/State/Zipcode Phone Number [facility] DEPARTMENT OF PATHOLOGY AND [address] [place] [phone] Estimated GFR (01/11/2020 11:08 AM CDT)Only the most recent of5 resultswithin the time period is included. [facility] Estimated GFR 27 (A) mL/min/1.73 [facility] Comment: HOSPITAL Catergory Units Interpretation G1 >=90 Normal or high G2 60-89 Mildly decreased G3a 45-59 Mildly to moderately decreas ed G3b 30-44 Moderately to severely decre ased G4 15-29 Severely decreased G5 <15 Kidney failure The eGFR was calculated using the Chronic Kidney Disea se Epidemiology Collaboration (CKD-EPI) equation. Interpretation is based on recommendations of the National Kidney Foundation-Kidney Disease Outcomes Sonido lity Initiative (NKF-KDOQI) published in 2014. Specimen Performing Organization Address City/State/Zipcode Phone Number [facility] DEPARTMENT OF PATHOLOGY AND [address] [place] [phone] Basic metabolic panel (01/11/2020 11:08 AM CDT)Only the most recent of4 results within the time period is included. Pathologist Sig nature Sodium 136 135 - 148 mEq/L [facility] Potassium 3.3 (L) 3.5 - 5.0 mEq/L [facility] Chloride 106 98 - 112 mEq/L [facility] CO2 17 (L) 24 - 31 mEq/L [facility] Anion gap 13@ANIO 7 - 15 mEq/L [facility] BUN 13 6 - 20 mg/dL [facility] Creatinine 2.19 (H) 0.50 - 0.90 mg/dL [facility] Glucose 286 (H) 65 - 99 mg/dL [facility] Calcium 8.0 (L) 8.3 - 10.2 mg/dL [facility] Specimen Blood Performing Organization Address City/State/Zipcode Phone Number [facility] DEPARTMENT OF PATHOLOGY AND [address] [place] [address] [phone] [address] CBC with platelet and differential (01/11/2020 10:28 AM CDT)Only the most recent of5 resultswithin the time period is included. WBC 4.38 (L) 4.50 - 11.00 [facility] k/uL HOSPITAL RBC 2.84 (L) 4.20 - 5.50 [facility] m/uL [facility] HGB 7.6 (L) 12.0 - 16.0 [facility] gdL [facility] HCT 25.6 (L) 37.0 - 47.0 % [facility] MCV 90.1 82.0 - 100.0 [facility] MCH 26.8 (L) 27.0 - 34.0 pg [facility] MCHC 29.7 (L) 31.0 - 37.0 [facility] RDW - SD 45.9 37.0 - 55.0 fL [facility] MPV 11.5 8.8 - 13.2 fL [facility] Platelet count 171 150 - 400 k/uL [facility] Nucleated RBC 0.00 /100 WBC [facility] Neutrophils 67.1 39.0 - 69.0 % [facility] Lymphocytes 17.1 (L) 25.0 - 45.0 % [facility] Monocytes 12.8 (H) 0.0 - 10.0 % [facility] Eosinophils 1.8 0.0 - 5.0 % [facility] Basophils 0.5 0.0 - 1.0 % [facility] Immature granulocytes 0.7Comment: 0.0 - 1.0 % [facility] "Immature [facility] granulocytes" (promyelocytes , myelocytes, metamyelocytes ) Specimen Blood Performing Organization Address City/State/Zipcode Phone Number [facility] DEPARTMENT OF PATHOLOGY AND [address] [place], [place] [phone] [address] Airway (01/08/2020 8:17 AM CDT) Narrative Performed At Omari Bernal MD 0 8:18 AM Airway Date/Time: 01/08/2020 8:10 AM Performed by: Omari Bernal MD Authorized by: Omari Bernal MD Location: Endoscopy Urgency: Elective Anesthesiologist: Omari Bernal MD Preoxygenated with 100% O2: Yes C-spine Precautions Maintained Throughou t: Yes Mask Ventilation: Easy mask Final Airway Type: Endotracheal airway Final Endotracheal Airway: ETT Cuffed: Yes Technique Used: Direct laryngoscopy Devices/Methods Used in Placement: Int ubating stylet Insertion Site: Oral Blade Type: Woods Laryngoscope Blade/Videolaryngoscope Alberto de Size: 2 ETT Size (mm): 7.0 Cuff at minimum occlusion pressure: Yes Measured from: Lips ETT to Lips (cm): 23 Placement Verified by: CO2 detection, di rect visualization and equal breath sounds Laryngoscopic view: Grade I - full vie w of glottis Rapid Sequence Induction (RSI): No Modified RSI: No Number of Attempts at Approach: 1 Urine culture (01/07/2020 1:33 PM CDT) [facility] Urine culture Mixed myron 10-4 col/cc [facility] isolate Comment: HOSPITAL Specimen Information Specimen Source: Urine Specimen Site: Clean catch Specimen Urine Performing Organization Address City/State/Zipcode Phone Number [facility] DEPARTMENT OF PATHOLOGY AND [address] [place] [phone] [facility] MEDICINE [address] [address] Urinalysis screen and microscopy, with reflex to culture (01/07/2020 12:45 PM CDT) Specimen site Clean catch [facility] Color, UA Yellow [facility] Appearance, UA Hazy [facility] Specific gravity, 1.008 1.001 - 1.035 [facility] pH, UA 8.0 5.0 - 8.5 [facility] Protein, UA 2+ (A) Negative [facility] Glucose, UA 3+ (A) Negative [facility] Comment: HOSPITAL URINE GLUCOSE AND KETONES Results called to and read b ack by JOSE ANTONIO BOLTON/Vasu AT 01/07/2020 13:32 BY LM1. Ketones, UA 1+ (A) Negative [facility] Bilirubin, UA Negative Negative [facility] Blood, UA Small (A) Negative [facility] Nitrite, UA Negative Negative [facility] Urobilinogen, UA <2.0 <2.0 [facility] Leukocyte esterase, Negative Negative [facility] Epithelial cells, 1 /HPF [facility] Round epithelial <1 0 - 1 /HPF [facility] cells, HOSPITAL WBC, UA 5 (H) 0 - 4 /HPF [facility] RBC, UA 1 0 - 5 /HPF [facility] Bacteria, UA Few None seen [facility] Yeast, UA None seen [facility] Yeast with None seen [facility] pseudohyphae, HOSPITAL Amorphous crystals Few [facility] Hyaline casts, UA 3 /LPF [facility] Specimen Urine Performing Organization Address City/[facility] Phone Number [facility] DEPARTMENT OF PATHOLOGY AND [address] [place] [address] [phone] [address] Total iron binding capacity (01/07/2020 12:45 PM CDT) Pathologist Sig nature Iron level 45 37 - 145 ug/dL [facility] Iron binding capacity 236 200 - 400 ug/dL [facility] % Saturation 19.1 15.0 - 38.0 % [facility] Specimen Plasma specimen Performing Organization Address City/[facility] Phone Number [facility] DEPARTMENT OF PATHOLOGY AND [address] [place] [address] [phone] [address] Iron level (01/07/2020 12:45 PM CDT) Pathologist Sig nature Iron level 45 37 - 145 ug/dL [facility] Specimen Plasma specimen Performing Organization Address City/[facility] Phone Number [facility] DEPARTMENT OF PATHOLOGY AND [address] [place] [address] [phone] [address] Hemoglobin A1c (01/07/2020 12:45 PM CDT) Hemoglobin A1C 7.5 (H) 4.0 - 5.6 % [facility] Comment: HOSPITAL HbA1c cutoffs for diagnosing diabetes: 4.0% - 5.6% = normal 5.7% - 6.4% = increased risk for diabetes (prediabetes )9 >=6.5% = diabetes9 Goals for glycemic control (ADA 2016) < 7.0% Target for non adults with diabetes. More or less stringent targets may be appropriate for individual patients. <7.5% Target for Children and adolescents with type 1 diabetes. Specimen Blood Performing Organization Address City/[facility] Phone Number [facility] DEPARTMENT OF PATHOLOGY AND [address] [place] [address] [phone] [address] Folate level (01/07/2020 12:45 PM CDT) Pathologist Sig nature Folate 11.5 4.8 - 24.2 ng/mL [facility] Specimen Serum Performing Organization Address [facility] Phone Number [facility] DEPARTMENT OF PATHOLOGY AND [address] [place] [address] [phone] [address] Ferritin level (01/07/2020 12:45 PM CDT) Pathologist Sig nature Ferritin level 36 13 - 150 ng/mL [facility] Specimen Plasma specimen Performing Organization Address [facility] Phone Number [facility] DEPARTMENT OF PATHOLOGY AND [address] [place] [address] [phone] [address] Vitamin B12 level (01/07/2020 12:45 PM CDT) Vitamin B12 1,111 (H) 562 - 946 [facility] Comment: pg/mL HOSPITAL Significant overlap exists between normal and deficien cy states. However, most patients with deficiencies will have Ser um B12 <200 pg/mL. Specimen Serum Performing Organization Address [facility] Phone Number [facility] DEPARTMENT OF PATHOLOGY AND [address] [place] [address] [phone] [address] hCG qualitative, urine screen (01/07/2020 12:20 PM CDT) hCG qualitative, NegativeComment: [facility] urine Sensitivity of HCG HOSPITAL test: 25 mIU/mL Specimen Performing Organization Address City/[facility] Phone Number [facility] DEPARTMENT OF PATHOLOGY AND [address] [place] [phone] GENOMIC MEDICINE [facility] [address] [place] [address] US Renal (01/07/2020 11:15 AM CDT) Specimen Narrative Performed At EXAMINATION: US RENAL [facility] CLINICAL HISTORY: Renal failure acut e (kidney injury) TECHNIQUE: Sonographic evaluation of the kidneys and b ladder was performed with grayscale, color-flow, an d spectral analysis. COMPARISON: None. FINDINGS: The kidneys are normal in size although of increased e chogenicity. There is no evidence of renal mass, calculi, o r hydronephrosis. The right kidney measures 11.8 x 5.9 x 5 .9 cm. The left kidney measures 10.8 x 4.1 x 5. 4 cm. The urinary bladder is unremarkable. Although bladder volume is prominent at 683 cc. IMPRESSION: Findings consistent with medical renal d isease. [facility]-[id number] Procedure Note Interface, Radiology Results Incoming - 01/07/2020 2:25 PM CDT EXAMINATION: US RENAL CLINICAL HISTORY: Renal failure acute (kidney injury) TECHNIQUE: Sonographic evaluation of the kidneys and bladder was performed with grayscale, color-flow, and spectral analysis. COMPARISON: None. FINDINGS: The kidneys are normal in size although of increased echogenicity. There is no evidence of renal mass, calculi, or hydronephrosis. The right kidney measures 11.8 x 5.9 x 5 .9 cm. The left kidney measures 10.8 x 4.1 x 5. 4 cm. The urinary bladder is unremarkable. Alt luis alberto bladder volume is prominent at 683 cc. IMPRESSION: Findings consistent with medical renal d isease. [facility]-[id number] Performing Organization Address City/State/Zipcode Phone Number [facility] [address] [place] [address] CT Renal Stone Protocol (01/07/2020 4:59 AM CDT) Specimen Narrative Performed At Examination: CT RENAL STONE PROTOCOL [facility] Clinical History: upper abd pain Comparison: None. Findings: CT scans are performed using radiation dose reduction techniques. Technical factors are evaluated and adjusted to ensu re appropriate moderation of exposure. Automated dose management te chnology is applied to adjust radiation exposure whi le achieving a diagnostic quality image. CT imaging was performed wit h iterative reconstruction techniques and/or automated exposure co ntrol to reduce radiation dose. CT scan of the abdomen and pelvis was performed withou t intravenous contrast. The liver, spleen, pancreas, and adrenal glands are un remarkable. The patient is status post cholecystectomy. The kidneys are within normal limits without hydroneph rosis or urinary calculus. The appendix is unremarkable. No bowel thickening or f at stranding is seen. No bowel dilatation is seen. Mild diffuse subcutaneous edema is noted. No free air is seen. There is small free fluid around the tip of the liver. Urinary bladder is unremarkable. The visualized lung bases show small lilian ateral pleural effusions. IMPRESSION: 1. Mild diffuse subcutaneous edema. 2. Small bilateral pleural effusions. 3. Small free fluid around the liver. 4. Otherwise no acute abnormality identi fied in abdomen or pelvis. [facility]-[id number] Procedure Note Interface, Radiology Results Incoming - 01/07/2020 5:07 AM CDT Examination: CT RENAL STONE PROTOCOL Clinical History: upper abd pain Comparison: None. Findings: CT scans are performed using radiation d ose reduction techniques. Technical factors are evaluated and adjusted to ensure appropriate moderation of exposure. Automated dose management technology is applied to adjust radiation exposure while achie ving a diagnostic quality image. CT imaging was performed with iterative reconstruction techniques and/or automated exposure control to reduce radiation dose. CT scan of the abdomen and pelvis was pe rformed without intravenous contrast. The liver, spleen, pancreas, and adrenal glands are unremarkable. The patient is status post cholecystectomy. The kidneys are within normal limits wit hout hydronephrosis or urinary calculus. The appendix is unremarkable. No bowel t hickening or fat stranding is seen. No bowel dilatation is seen. Mild diffuse subcutaneous edema is noted . No free air is seen. There is small free fluid around the tip of the liver. Urinary bladder is unremarkable. The visualized lung bases show small lilian ateral pleural effusions. IMPRESSION: 1. Mild diffuse subcutaneous edema. 2. Small bilateral pleural effusions. 3. Small free fluid around the liver. 4. Otherwise no acute abnormality identi fied in abdomen or pelvis. [facility]-[id number] Performing Organization Address City/State/Zipcode Phone Number [place] [address] [place] [address] ECG 12 lead (01/07/2020 4:30 AM CDT) Pathologist Sig nature Ventricular rate 109 [facility] MUSE Atrial rate 109 [facility] MUSE OR interval 152 [facility] MUSE QRSD interval 62 [facility] MUSE QT interval 344 [facility] QTC interval 463 [facility] MUSE P axis 1 76 [facility] M[facility] QRS axis 1 -25 [facility] T wave axis 77 [facility] MUSE EKG impression Sinus [facility] MUSE tachycardia-Septal infarct , age undetermined-Abnormal ECG-No previous ECGs available-Electronicall y Signed By Wilda Paniagua MD ([id number]) on 01/07/2020 1:15:03 PM Specimen Narrative Performed At This result has an attachment that is no t available. Performing Organization Address City/[facility] Phone Number [facility] MUSE [address] [place] [phone] Lactic acid level, SEPSIS - Now and repeat 2x every 3 hours (01/07/2020 3:39 AM CDT) Pathologist Sig nature Lactic acid 1.6 0.5 - 2.2 mmol/L [facility] [place] Specimen Plasma specimen Performing Organization Address [facility] Phone Number [facility] DEPARTMENT OF PATHOLOGY AND [address] [place] [address] [place] [phone] Phosphorus level (01/07/2020 3:39 AM CDT) Pathologist Sig nature Phosphorus 3.6 2.4 - 4.5 mg/dL [facility] L Specimen Plasma specimen Performing Organization Address [facility] Phone Number [facility] DEPARTMENT OF PATHOLOGY AND [address] [place] [address] [phone] [address] Magnesium level (01/07/2020 3:39 AM CDT) Pathologist Sig nature Magnesium 2.0 1.6 - 2.6 mg/dL [facility] L Specimen Plasma specimen Performing Organization Address [facility] Phone Number [facility] DEPARTMENT OF PATHOLOGY AND [address] [place] [address] [place] [phone] Lipase level (01/07/2020 3:39 AM CDT) Pathologist Sig nature Lipase 9 (L) 13 - 60 U/L [facility] Specimen Plasma specimen Performing Organization Address City/State/Zipcode Phone Number [facility] DEPARTMENT OF PATHOLOGY AND [address] [place], [place] [phone] [facility] [address] [place] [address] Comprehensive metabolic panel (01/07/2020 3:39 AM CDT) Sodium 138 135 - 148 [facility] mEq/L [facility] Potassium 4.5 3.5 - 5.0 [facility] mEq/L [facility] Chloride 100 98 - 112 [facility] mEq/L [facility] CO2 21 (L) 24 - 31 mEq/L [facility] Anion gap 17@ANIO (H) 7 - 15 mEq/L [facility] BUN 25 (H) 6 - 20 mg/dL [facility] Creatinine 2.27 (H) 0.50 - 0.90 [facility] mg/dL [facility] Glucose 189 (H) 65 - 99 mg/dL [facility] Calcium 9.3 8.3 - 10.2 [facility] mg/dL [facility] Protein 6.2 (L) 6.3 - 8.3 [facility] Comment: g/dL [facility] [place] 4.6-7.0 g/dL 1 week 4.4-7.6 g/dL 7 months-1year 5.1-7.3 g/dL 1-2 years 5.6-7.5 g/dL >3 years 6.0-8.0 g/dL 18-150 6.3-8.3 g/dL Albumin 3.1 (L) 3.5 - 5.0 [facility] g/dL [facility] A/G ratio 1.0 0.7 - 3.8 [facility] Alkaline phosphatase 62 35 - 104 U/L [facility] AST 16 10 - 35 U/L [facility] ALT 17 5 - 50 U/L [facility] Total bilirubin 0.3 0.0 - 1.2 [facility] mg/dL [facility] Specimen Plasma specimen Performing Organization Address City/State/Zipcode Phone Number [facility] DEPARTMENT OF PATHOLOGY AND [address] [place], [place] [address] [place] [phone] [place] [address] after 03/05/2019 Advance Directives For more information, please contact: [phone] Type Date Recorded Patient Butcher'S Assistant Explanati on Advance Directives, Living Will 01/07/2020 2:47 AM and Medical Power of Shape Carver
--- OUTSIDE RECORDS SUMMARY | 2020-03-05 05:45 | XMS REPORT ---
:1980 Author Organization [facility] t Address [address] [place] [address] [address]. [address] [place] [address] Care Team Providers Name Role Phone Unavailable Unavailable Unavailable Problems This patient has no known problems. Allergies, Adverse Reactions, Alerts This patient has no known allergies or adverse reactions. Medications This patient has no known medications.
[2020-03-05 06:26] LABS: Absolute Lymphocytes (CBC) 0.6 K/uL (0.7-4.9); Basophils % 1.1 % (0-1.3); Hematocrit 35.4 % (36.0-45.0); Lymphocytes % 8.3 % (15.3-44.8); MPV 8.9 fL (7.6-11.3); RBC Red Blood Cell Count 4.17 M/uL (3.86-4.86)
[2020-03-05] MEDS ORDERED: MORPHINE 4 MG/ML SYR ONE ×2 (06:28→07:47)
[2020-03-05] MEDS ORDERED: NA CHLORIDE 0.9% 1,000 ML ONE ×2 (06:28→08:58)
[2020-03-05] MEDS ORDERED: PROMETHAZINE INJ 25 MG/ML AMP ONE ×2 (06:28→07:47)
[2020-03-05 06:53] LABS: Albumin 3.4 g/dL (3.4-5.0); Bilirubin Direct 0.1 mg/dL (0-0.2); Bilirubin Total 0.4 mg/dL (0.2-1.0); Protein, Total 7.5 g/dL (6.4-8.2)
[2020-03-05 06:57] LABS: Potassium 4.1 mmol/L (3.5-5.1)
[2020-03-05] MEDS ORDERED: ONDANSETRON 4 MG/2 ML VIAL ONE ×2 (08:28→10:41)
[2020-03-05 10:21] LABS: Urine Blood TRACE (NEG); Urine Glucose TRACE (NEG); Urine Protein 3+ (NEG); Urine Specific Gravity 1.025 (1.005-1.030); Urine pH 8.5 (5.0-7.0)
--- NOTE | 2020-03-05 10:35 | RAD REPORT ---
EXAM DESCRIPTION: CT - Abdomen Pelvis Wo Contrast - 03/05/2020 10:04 am CLINICAL HISTORY: Epigastric pain;Nausea / vomiting COMPARISON: Abdomen Pelvis W Contrast dated 02/11/2020 TECHNIQUE: Axial [address] imaging of the abdomen and pelvis was performed without IV contrast. No IV contrast was given because of allergy, abnormal renal function, patient refusal or physician re quest. No oral contrast administered. All CT scans are performed using dose optimization technique as appropriate and may include automated exposure control or mA/KV adjustment according to patient size. FINDINGS: Small bilateral pleural effusions are present improved from prior imaging. Pericardial eff usion has increased but is only partially imaged on this study. Liver and spleen show no suspicious findings. No acute pancreatitis findings confirmed. No focal panc reatic mass. Cholecystectomy clips are present. No biliary tree dilatation. No hydronephrosis or suspicious renal mass. No significant adrenal finding. Isodense renal masses an d pyelonephritis cannot be excluded in the absence of IV contrast. Urinary bladder is distended but w ithout wall thickening, mass or intraluminal abnormality. No uterine abnormality seen. Ovaries are no t distinguishable from the adjacent isodense bowel. Ovarian or adnexal mass not suspected. No dilated bowel loops or bowel wall thickening. Hyperdense material within the colon is presumed to be ingested medication. Moderate stool volume is present. No free air or pneumatosis. Small amount of ascites is present. Anasarca pattern again noted in the subcutaneous fatty tissues. No hernia, mass or bulky lymphadenopathy. No suspicious bony findings. IMPRESSION: No obstruction, free air or emergent CT abdomen or pelvis finding. Pleural effusions, ascites and anasarca pattern are still present from the February 10 study. Pleural effusions are slightly improved since comparison. The pericardial effusion has worsened. Full assessment is limited is the absence of IV contrast.
[2020-03-05] MEDS ORDERED: FENTANYL CITR 100 MCG/2 ML ONE (10:41)
--- NOTE | 2020-03-05 10:46 | EDPHYS ---
Physician Documentation [facility] Name: Mercedes Marin Age: 40 yrs Sex: Female : 1980 Arrival Date: 03/05/2020 Time: 05:49 Bed 6 Private MD: ED Physician Luis Eduardo Sun HPI: 03/05 06:31 This 40 yrs old Female presents to ER via Wheelchair with complaints of pm1 Abdominal Pain, Vomiting. 06:31 The patient presents with abdominal pain in the upper abdomen. Onset: The pm1 symptoms/episode began/occurred 2 day(s) ago. 06:31 The symptoms do not radiate. Associated signs and symptoms: Pertinent positives: nausea pm1 and vomiting, Pertinent negatives: chest pain, diarrhea, dysuria, fever, shortness of breath, vomiting blood. The symptoms are described as achy, burning. Modifying factors: The symptoms are alleviated by nothing, the symptoms are aggravated by food. Severity of pain: in the emergency department the pain is actually worse. The patient has experienced similar episodes in the past, multiple times, today's symptoms are similar, to previous gastroparesis. Patient presenting to the ER with complaints of abdominal pain with nausea and vomiting. Patient reposts that she has not been able to eat or drink for the past 2 days. Historical: - Allergies: 06:05 No Known Allergies; lp1 - Home Meds: 06:05 Metoprolol Tartrate Oral [Active]; Novolin 70/30 [place] Sub-Q [Active]; lp1 - PMHx: 06:05 Diabetes - IDDM; Hypertension; Pancreatitis; lp1 - Immunization history:: Adult Immunizations up to date. - Social history:: Smoking status: Patient denies any tobacco usage or history of. ROS: 06:21 Constitutional: Negative for fever, chills, and weight loss, Neck: Negative for injury, pm1 pain, and swelling, Cardiovascular: Negative for chest pain, palpitations, and edema, Respiratory: Negative for shortness of breath, cough, wheezing, and pleuritic chest pain. 06:21 Back: Negative for injury and pain, : Negative for injury, bleeding, discharge, and swelling, MS/Extremity: Negative for injury and deformity, Skin: Negative for injury, rash, and discoloration, Neuro: Negative for headache, weakness, numbness, tingling, and seizure. 06:21 ENT: Negative for ear pain, sore throat. 06:21 Abdomen/GI: Positive for abdominal pain, nausea and vomiting, Negative for diarrhea, constipation. Exam: 06:21 Constitutional: This is a well developed, well nourished patient who is awake, alert, pm1 and in no acute distress. Head/Face: Normocephalic, atraumatic. Chest/axilla: Normal chest wall appearance and motion. Nontender with no deformity. No lesions are appreciated. 06:21 Back: No spinal tenderness. No costovertebral tenderness. Full range of motion. Skin: Warm, dry with normal turgor. Normal color with no rashes, no lesions, and no evidence of cellulitis. MS/ Extremity: Pulses equal, no cyanosis. Neurovascular intact. Full, normal range of motion. 06:21 Cardiovascular: Rate: tachycardic, Rhythm: regular, Pulses: no pulse deficits are appreciated, Edema: is not appreciated. 06:21 Respiratory: Exam negative for acute changes, respiratory distress, shortness of breath. 06:21 Abdomen/GI: Inspection: abdomen appears normal, Palpation: abdomen is soft and non-tender, mass, is not appreciated, rebound tenderness, is not appreciated. 06:21 Neuro: Exam negative for acute changes, Orientation: is normal, Mentation: is normal, Motor: is normal, moves all fours. Vital Signs: 06:03 BP 153 / 95; Pulse 112; Resp 18; Temp 97.5; Pulse Ox 100% on R/A; Pain 10/10; lp1 08:27 BP 155 / 91; Pulse 108; Resp 17 S; Pulse Ox 100% on R/A; jl7 09:15 BP 155 / 84; Pulse 98; Resp 20; Pulse Ox 96% on R/A; em 10:15 BP 177 / 84; Pulse 108; Resp 16; Pulse Ox 97% on R/A; em 11:45 BP 175 / 98; Pulse 105; Resp 16; Pulse Ox 97% on R/A; Pain 8/10; em 12:45 BP 170 / 90; Pulse 100; Resp 18; Pulse Ox 99% on R/A; em Procedures: 07:56 Peripheral line: by aseptic technique a peripheral line was placed in the left external pm1 jugular vein. MDM: 06:11 Patient medically screened. pm1 07:17 Data reviewed: vital signs. Data interpreted: Pulse oximetry: on room air is 100 %. pm1 Interpretation: normal. 10:44 Counseling: I had a detailed discussion with the patient and/or guardian regarding: the pm1 historical points, exam findings, and any diagnostic results supporting the discharge/admit diagnosis, lab results, radiology results, the need for further work-up and treatment in the hospital. 11:49 Physician consultation: Lam Quezada DO was called at 11:49, was contacted at 11:49, pm1 regarding admission, patient's condition, Patient was admitted from 02/10 to 02/21 and had extensive workup with nephrology and GI. Dr. Quezada reviewed patient's labs and CT from the ER today and notes that patient's GFR improved today. Patient needs to follow up for management of gastroparesis. Recommends Reglan and erythromycin in the ER and discharge to home for follow up with Erythromycin 250 TID . 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 03/05 06:09 Order name: Basic Metabolic Panel; Complete Time: 06:59 sg 03/05 06:09 Order name: CBC with Diff; Complete Time: 06:58 sg 03/05 06:09 Order name: Creatinine for Radiology; Complete Time: 06:58 sg 03/05 06:09 Order name: Hepatic Function; Complete Time: 06:59 sg 03/05 06:09 Order name: Lipase; Complete Time: 06:59 sg 03/05 10:00 Order name: Urine Dipstick--Ancillary (enter results); Complete Time: 10:23 eb 03/05 09:21 Order name: CT Abd/Pelvis - Without Contrast; Complete Time: 10:37 pm1 03/05 10:00 Order name: Urine --Ancillary (enter results); Complete Time: 10:23 eb 03/05 10:57 Order name: Chest Single View XRAY; Complete Time: 11:23 pm1 03/05 10:57 Order name: Troponin (emerg Dept Use Only); Complete Time: 11:35 pm1 03/05 06:09 Order name: IV Saline Lock; Complete Time: 06:16 sg 03/05 06:09 Order name: Labs collected and sent; Complete Time: 06:16 sg 03/05 06:23 Order name: Urine Dipstick-Ancillary (obtain specimen); Complete Time: 10:25 pm1 03/05 06:23 Order name: Urine Test (obtain specimen); Complete Time: 10:26 pm1 03/05 10:57 Order name: EKG; Complete Time: 10:58 pm1 03/05 10:57 Order name: EKG - Nurse/Tech; Complete Time: 11:53 pm1 Administered Medications: 07:43 Drug: Phenergan 12.5 mg Route: IVP; Site: left jugular; em 08:25 Follow up: Response: No adverse reaction; Nausea unchanged em 07:45 Drug: morphine 4 mg Route: IVP; Site: left jugular; em 08:49 Follow up: Response: No adverse reaction; Marked relief of symptoms; Pain is decreased; em RASS: Alert and Calm (0) 07:45 Drug: NS 0.9% 1000 ml Route: IV; Rate: 1000 ml; Site: left jugular; em 09:00 Follow up: IV Status: Completed infusion; IV Intake: 1000ml em 08:25 Drug: Zofran (Ondansetron) 4 mg Route: IVP; Site: left jugular; jl7 10:00 Follow up: Response: No adverse reaction; No change in condition em 09:00 Drug: NS 0.9% 1000 ml Route: IV; Rate: 1000 ml; Site: left jugular; em 10:25 Follow up: IV Status: Completed infusion; IV Intake: 1000ml em 09:06 CANCELLED (Physician Discretion): morphine 4 mg IVP once; RASS on ADMIN: Combtv4, Very pm1 Agttd3, Agttd2, Rstlss1, AlertClm0, Drwsy-1, Lt Sdtn-2, Mod Sdtn-3, Dp Sdtn-4, UnArsble-5 10:50 Drug: Zofran (Ondansetron) 4 mg Route: IVP; Site: left jugular; em 12:21 Follow up: Response: No adverse reaction em 10:51 Drug: fentaNYL (PF) 25 mcg Route: IVP; Site: left jugular; em 12:21 Follow up: Response: No adverse reaction; No change in condition em 12:19 Drug: Reglan 10 mg Route: IVP; Site: left jugular; em 13:40 Follow up: Response: No adverse reaction em 13:20 Drug: ERYTHromycin 250 mg Route: PO; em 13:41 Follow up: Response: No adverse reaction em Disposition: 03/05/20 12:30 Discharged to Home. Impression: Gastroparesis, Dehydration. - Condition is Stable. - Discharge Instructions: Dehydration, Adult, Gastroparesis. - Prescriptions for Erythromycin 250 mg Oral Tablet - take 1 tablet by ORAL route every 8 hours for 5 days; 15 tablet. Phenergan 25 mg Rectal Suppository - insert 1 suppository by RECTAL route every 6 hours As needed; 12 suppository. promethazine 25 mg Oral Tablet - take 1 tablet by ORAL route every 6 hours As needed; 20 tablet. - Medication Reconciliation Form, Thank You Letter, Antibiotic Education, Prescription Opioid Use form. - Follow up: Emergency Department; When: As needed; Reason: Worsening of condition. Follow up: Private Physician; When: 2 - 3 days; Reason: Recheck today's complaints, Continuance of care, Re-evaluation by your physician. - Problem is new. - Symptoms have improved. Signatures: Dispatcher [employer] David Ball RN WALDEMAR Redd Calvo RN RN Chelsea Waters RN RN lp1 Nathan Nayak, PEDIATRIC CARE COORDINATOR PEDIATRIC CARE COORDINATOR pm1 Carlos Samaniego RN RN jl7 Corrections: (The following items were deleted from the chart) 09:06 09:00 morphine 4 mg IVP once; RASS on ADMIN: Combtv4, Very Agttd3, Agttd2, Rstlss1, pm1 AlertClm0, Drwsy-1, Lt Sdtn-2, Mod Sdtn-3, Dp Sdtn-4, UnArsble-5 ordered. pm1 11:45 10:45 Hospitalization Ordered by Lma Quezada DO for Observation. Preliminary pm1 diagnosis is Unspecified abdominal pain; Nausea and vomiting; Gastroparesis. Bed requested for Telemetry/MedSurg (observation). Status is Observation. Condition is Stable. Problem is new. Symptoms have improved. pm1 13:43 12:30 03/05/2020 12:30 Discharged to Home. Impression: Gastroparesis; Dehydration. em Condition is Stable. Forms are Medication Reconciliation Form, Thank You Letter, Antibiotic Education, Prescription Opioid Use. Follow up: Emergency Department; When: As needed; Reason: Worsening of condition. Follow up: Private Physician; When: 2 - 3 days; Reason: Recheck today's complaints, Continuance of care, Re-evaluation by your physician. Problem is new. Symptoms have improved. pm1
--- NOTE | 2020-03-05 10:46 | ER ---
Nurse's Notes [facility] Name: Mercedes Marin Age: 40 yrs Sex: Female : 1980 Arrival Date: 03/05/2020 Time: 05:49 Bed 6 Private MD: Diagnosis: Gastroparesis;Dehydration Presentation: 03/05 06:03 Chief complaint: Patient states: Abdominal pain and vomiting x 2 days; states unable to lp1 tolerate eating or drinking; denies any fever, constipation, diarrhea. Coronavirus screen: Proceed with normal triage. Ebola Screen: No symptoms or risks identified at this time. Initial Sepsis Screen: Does the patient meet any 2 criteria? No. Patient's initial sepsis screen is negative. Does the patient have a suspected source of infection? No. Patient's initial sepsis screen is negative. Risk Assessment: Do you want to hurt yourself or someone else? Patient reports no desire to harm self or others. Onset of symptoms was March 05, 2020. 06:03 Method Of Arrival: Wheelchair lp1 06:03 Acuity: ALONDRA 3 lp1 Historical: - Allergies: 06:05 No Known Allergies; lp1 - Home Meds: 06:05 Metoprolol Tartrate Oral [Active]; Novolin 70/30 [place] Sub-Q [Active]; lp1 - PMHx: 06:05 Diabetes - IDDM; Hypertension; Pancreatitis; lp1 - Immunization history:: Adult Immunizations up to date. - Social history:: Smoking status: Patient denies any tobacco usage or history of. Screenin:06 Abuse screen: Denies threats or abuse. Denies injuries from another. Nutritional lp1 screening: No deficits noted. Tuberculosis screening: No symptoms or risk factors identified. 06:22 Fall Risk IV access (20 points). ea Assessment: 06:21 General: Appears in no apparent distress. Behavior is calm, cooperative, appropriate ea for age. Pain: Complains of pain in abdomen. Neuro: Level of Consciousness is awake, alert, obeys commands, Oriented to person, place, time, situation. Cardiovascular: Respiratory: Airway is patent Respiratory effort is even, unlabored, Respiratory pattern is regular, symmetrical. GI: Reports upper abdominal pain. Derm: Skin is pink, warm \T\ dry. Musculoskeletal: Circulation, motion, and sensation intact. 07:35 Reassessment: unable to get IV access, Dr. Condon notified, EJ inserted in the left em EJ. 08:26 Reassessment: Pt vomited on floor, ERP notified, VO for 4 mg Zofran IVP. Administered jl7 as ordered. Call day within reach, instructed pt to hit the call day if she feels the nausea come back, pt verbalized understanding. 09:00 Reassessment: Patient appears in no apparent distress at this time. Patient and/or em family updated on plan of care and expected duration. Pain level reassessed. reports slight improvement in pain, provider notified. 10:30 Reassessment: pt actively vomiting, provider notified, reports pain has returned. em 12:30 Reassessment: Patient appears in no apparent distress at this time. Patient and/or em family updated on plan of care and expected duration. Pain level reassessed. Patient is alert, oriented x 3, equal unlabored respirations, skin warm/dry/pink. Vital Signs: 06:03 BP 153 / 95; Pulse 112; Resp 18; Temp 97.5; Pulse Ox 100% on R/A; Pain 10/10; lp1 08:27 BP 155 / 91; Pulse 108; Resp 17 S; Pulse Ox 100% on R/A; jl7 09:15 BP 155 / 84; Pulse 98; Resp 20; Pulse Ox 96% on R/A; em 10:15 BP 177 / 84; Pulse 108; Resp 16; Pulse Ox 97% on R/A; em 11:45 BP 175 / 98; Pulse 105; Resp 16; Pulse Ox 97% on R/A; Pain 8/10; em 12:45 BP 170 / 90; Pulse 100; Resp 18; Pulse Ox 99% on R/A; em ED Course: 05:49 Patient arrived in ED. bp1 06:04 Triage completed. lp1 06:04 Arm band placed on. lp1 06:06 Nathan Nayak NP is PHCP. pm1 06:06 Luis Eduardo Sun MD is Attending Physician. pm1 06:12 Missed attempt(s): 20 gauge in right antecubital area. ea 06:16 Initial lab(s) drawn, by ED staff, sent to lab. sg 06:18 Missed attempt(s): 22 gauge in right antecubital area. Missed attempt(s):. ea 06:21 Patient has correct armband on for positive identification. Bed in low position. Call ea light in reach. Side rails up X2. 06:23 Inserted saline lock: 22 gauge in right forearm, using aseptic technique. ea 07:19 Redd Calvo, RN is Primary Nurse. em 07:35 Inserted saline lock: 18 gauge in left EJ, using aseptic technique. ,using aseptic em technique. inserted by Dr. Condon. 10:04 CT completed. Patient tolerated procedure well. Patient moved back from CT. bq 10:05 CT Abd/Pelvis - Without Contrast In Process Unspecified. EDMS 10:45 Lam Quezada DO is Hospitalizing Provider. pm1 11:14 Chest Single View XRAY In Process Unspecified. EDMS 13:39 No provider procedures requiring assistance completed. IV discontinued, intact, em bleeding controlled, No redness/swelling at site. Pressure dressing applied. Administered Medications: 07:43 Drug: Phenergan 12.5 mg Route: IVP; Site: left jugular; em 08:25 Follow up: Response: No adverse reaction; Nausea unchanged em 07:45 Drug: morphine 4 mg Route: IVP; Site: left jugular; em 08:49 Follow up: Response: No adverse reaction; Marked relief of symptoms; Pain is decreased; em RASS: Alert and Calm (0) 07:45 Drug: NS 0.9% 1000 ml Route: IV; Rate: 1000 ml; Site: left jugular; em 09:00 Follow up: IV Status: Completed infusion; IV Intake: 1000ml em 08:25 Drug: Zofran (Ondansetron) 4 mg Route: IVP; Site: left jugular; jl7 10:00 Follow up: Response: No adverse reaction; No change in condition em 09:00 Drug: NS 0.9% 1000 ml Route: IV; Rate: 1000 ml; Site: left jugular; em 10:25 Follow up: IV Status: Completed infusion; IV Intake: 1000ml em 09:06 CANCELLED (Physician Discretion): morphine 4 mg IVP once; RASS on ADMIN: Combtv4, Very pm1 Agttd3, Agttd2, Rstlss1, AlertClm0, Drwsy-1, Lt Sdtn-2, Mod Sdtn-3, Dp Sdtn-4, UnArsble-5 10:50 Drug: Zofran (Ondansetron) 4 mg Route: IVP; Site: left jugular; em 12:21 Follow up: Response: No adverse reaction em 10:51 Drug: fentaNYL (PF) 25 mcg Route: IVP; Site: left jugular; em 12:21 Follow up: Response: No adverse reaction; No change in condition em 12:19 Drug: Reglan 10 mg Route: IVP; Site: left jugular; em 13:40 Follow up: Response: No adverse reaction em 13:20 Drug: ERYTHromycin 250 mg Route: PO; em 13:41 Follow up: Response: No adverse reaction em Intake: 09:00 IV: 1000ml; Total: 1000ml. em 10:25 IV: 1000ml; Total: 2000ml. em Outcome: 10:45 Decision to Hospitalize by Provider. pm1 12:30 Discharge ordered by MD. pm1 13:39 Discharged to home ambulatory. em 13:39 Condition: good 13:39 Discharge instructions given to patient, Instructed on discharge instructions, follow up and referral plans. medication usage, Demonstrated understanding of instructions, follow-up care, medications, Prescriptions given X 3. 13:43 Patient left the ED. em Signatures: Dispatcher [employer] EDMS David Alcala RN Celia Minaya Edgar, RN RN em Pena, Laura RN RN lp1 Nathan Nayak, [employer]IREE MEDICAID BILLING CLERK pm1 Carlos Samaniego RN RN jl7 Zenobia Locke RN RN ea Paniauga, Brittany bp1 Corrections: (The following items were deleted from the chart) 06:23 06:23 Inserted saline lock: 22 gauge in right antecubital area, using aseptic ea technique. ea
--- NOTE | 2020-03-05 11:20 | RAD REPORT ---
EXAM DESCRIPTION: RAD - Chest Single View - 03/05/2020 11:13 am CLINICAL HISTORY: Nausea/Vomiting COMPARISON: CT study March 05, 2020, AP portable chest February 18, 2020 TECHNIQUE: AP portable chest image was obtained 03/05/2020 11:13 am . FINDINGS: Lungs are clear. Heart and vasculature are normal. Minimal pleural effusions with no pneum othorax. No acute bony abnormality seen. No acute aortic findings suspected. IMPRESSION: No acute cardiopulmonary process. Minimal pleural effusions match comparison.
[2020-03-05] MEDS ORDERED: METOCLOPRAMIDE 10 MG/2mL INJ ONE (12:08)
[2020-03-05] MEDS ORDERED: [UNRECOGNIZED DRUG - OTHER] PO ONE (12:15)
[2020-03-05 13:47] VITALS: TEMP 97.5
[2020-03-05 13:54] VITALS: BP 170/90; O2SAT 99
--- NOTE | 2020-03-06 08:41 | EKG ---
Test Date: 2020-03-05 Test Time: 11:15:11 Yarn Spooler: KAYLAH MEASUREMENT RESULTS: Intervals: Rate: 106 MN: 148 QRSD: 64 QT: 354 QTc: 470 Lannon: P: 78 MN: 148 QRS: -23 T: 76 INTERPRETIVE STATEMENTS: Sinus tachycardia Septal infarct, age undetermined Abnormal ECG Compared to ECG 02/10/2020 23:46:55 No significant changes Electronically Signed On 03-06-20 08:40:16 CDT by Marquez Walter
== END 2020-03-05 13:43 | disposition home or self-care (01) ==
LOC: ER 05:41
PROC: 05HQ33Z Insertion of Infusion Device into Left External Jugular Vein, Percutaneous Approach (ICD-10-PCS; principal; 2020-03-05)
DX: K31.84 Gastroparesis (principal); E86.0 Dehydration; R11.2 Nausea with vomiting, unspecified; I10 Essential (primary) hypertension; E11.9 Type 2 diabetes mellitus without complications; Z79.4 Long term (current) use of insulin
CPT/HCPCS: 36415; 71045; 74176; 80048; 80076; 81003; 81025; 83690; 84484; 85025; 93005; 96361; 96374; 96375; 99284; J2405; J2550; J2765; J3010; J7030

== ENCOUNTER 2020-12-12 12:42 | Emergency (ER) | payer OTHER, SELFPAY ==
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
[2020-12-12 15:08] VITALS: TEMP 97.8
[2020-12-12 15:09] VITALS: BP 119/67; O2SAT 92
== END 2020-12-12 15:02 | disposition home or self-care (01) ==
LOC: ER 12:42
DX: S20.219A Contusion of unspecified front wall of thorax, initial encounter (principal); J90 Pleural effusion, not elsewhere classified; V49.49XA Driver injured in collision with other motor vehicles in traffic accident, initial encounter; E11.22 Type 2 diabetes mellitus with diabetic chronic kidney disease; I12.0 Hypertensive chronic kidney disease with stage 5 chronic kidney disease or end stage renal disease; N18.5 Chronic kidney disease, stage 5; Z79.4 Long term (current) use of insulin
CPT/HCPCS: 71045; 99283